=== PATIENT | male | born 1965 | race Two or more races ===

== ENCOUNTER 2022-03-05 07:51 | Emergency (ER) | payer MEDICARE, OTHER ==
[~2022-03-05] VITALS: Ht 175.3 cm; Wt 113.4 kg
[2022-03-05] MEDS ORDERED: SODIUM CHLORIDE 0.9% 1,000 ML IV ONE (08:00)
[2022-03-05 08:11] LABS: Urine Bacteria None Seen /hpf (None Seen)
[2022-03-05 09:10] LABS: Basophils # (auto) 0.1 10 ^3/uL (0-0.2); Basophils % (auto) 0.6 % (0.0-2.0); Eosinophils # (auto) 0.2 10 ^3/uL (0-0.8); Eosinophils % (auto) 2.4 % (0.0-7.0); Hematocrit 41.8 % (41.0-53.0); Hemoglobin 14.3 g/dL (13.5-17.5); Lymphocytes % (auto) 23.1 % (10.0-50.0); Mean Corpuscular Hemoglobin 31.7 pg (28.0-32.0); Mean Corpuscular Hgb Conc. 34.1 g/dL (32.0-36.0); Mean Corpuscular Volume 92.9 fL (80.0-100.0); Monocytes # (auto) 0.6 10 ^3/uL (0-1.3); Monocytes % (auto) 6.6 % (0.0-12.0); Neutrophils # (auto) 5.9 10 ^3/uL (1.6-8.6); Neutrophils % (auto) 67.3 % (37.0-80.0); Nucleated Red Blood Cells % 0.1 %; Red Cell Distribution Width 14.9 % (11.8-14.3); White Blood Cell 8.8 10^3/uL (4.4-10.8)
[2022-03-05 09:16] LABS: Albumin 3.1 g/dL (3.4-5.0); Calcium 9.7 mg/dL (8.5-10.1); Potassium 4.6 mmol/L (3.5-5.1)
[2022-03-05 09:20] LABS: BUN/Creatinine Ratio 26.7; Bilirubin, Total 0.4 mg/dL (0.2-1.0)
[2022-03-05 10:38] LABS: INR 1.01 (0.9-1.15); Partial Thromboplastin Time 31.1 sec (23.6-33.0)
[2022-03-05 11:59] LABS: Urine Blood Normal /uL (Negative); Urine Specific Gravity 1.009 (1.001-1.035)
[2022-03-05 12:01] LABS: Urine WBC 0 - 1 /hpf (0 - 3)
[2022-03-05 15:06] VITALS: BP 166/69
== END 2022-03-05 15:13 | disposition home or self-care (01) ==
LOC: ER 07:51
DX: K80.80 Other cholelithiasis without obstruction (principal); I10 Essential (primary) hypertension; E11.9 Type 2 diabetes mellitus without complications
CPT/HCPCS: 36415; 74176; 80053; 81001; 82962; 84484; 85025; 85610; 85730; 96360; 99284; J7030

== ENCOUNTER 2024-01-14 03:23 | Inpatient (IN) | payer MEDICARE ==
[~2024-01-14] VITALS: Ht 177.8 cm; Wt 111.4 kg
[2024-01-14 04:00] VITALS: PULSE 83; RESP 10; O2SAT 90
[2024-01-14] MEDS: ONDANSETRON HCL 4 MG/2 ML VIAL IV ONE (04:30)
[2024-01-14] MEDS: MORPHINE SULFATE 4 MG/ML SYR/VIAL IV ONE (05:13)
[2024-01-14 05:26] LABS: Basophils # (auto) 0 10 ^3/uL (0-0.2); Basophils % (auto) 0.4 % (0.0-2.0); Eosinophils # (auto) 0.2 10 ^3/uL (0-0.8); Eosinophils % (auto) 1.5 % (0.0-7.0); Hematocrit 30.9 % (41.0-53.0); Hemoglobin 9.8 g/dL (13.5-17.5); Lymphocytes # (auto) 0.8 10 ^3/uL (0.4-5.4); Lymphocytes % (auto) 6.4 % (10.0-50.0); Mean Corpuscular Hemoglobin 29.3 pg (28.0-32.0); Mean Corpuscular Hgb Conc. 31.5 g/dL (32.0-36.0); Monocytes # (auto) 0.5 10 ^3/uL (0-1.3); Monocytes % (auto) 3.8 % (0.0-12.0); Neutrophils # (auto) 10.4 10 ^3/uL (1.6-8.6); Neutrophils % (auto) 87.9 % (37.0-80.0); Red Blood Cells 3.33 10^6/uL (4.5-5.90); Red Cell Distribution Width 15.8 % (11.8-14.3); White Blood Cell 11.9 10^3/uL (4.4-10.8)
[2024-01-14 05:34] LABS: Alanine Aminotransferase 27 U/L (7-40); Alkaline Phosphatase 225 U/L (46-116); Anion Gap 9 (5-15); Aspartate Aminotransferase 25 U/L (13-40); Blood Urea Nitrogen 32 mg/dL (9-23); Calcium 9.2 mg/dL (8.7-10.4); Carbon Dioxide 27 mmol/L (20-30); Chloride 106 mmol/L (98-107); Glucose 148 mg/dL (74-106); Potassium 3.5 mmol/L (3.5-5.1); Sodium 142 mmol/L (136-145)
[2024-01-14 05:35] LABS: Bilirubin, Total 0.5 mg/dL (0.2-1.0); Total Protein 7.6 g/dL (5.7-8.2)
[2024-01-14 05:36] LABS: INR 1.1 (0.9-1.15); Partial Thromboplastin Time 29.9 SEC (24.5-34.5); Prothrombin Time 11.5 sec (9.3-11.8)
[2024-01-14] MEDS: FUROSEMIDE 40 MG/4 ML VIAL IV ONE (06:09)
[2024-01-14 08:00] VITALS: PULSE 80; RESP 19; O2SAT 96
[2024-01-14 10:37] LABS: Magnesium 2.2 mg/dL (1.6-2.6)
[2024-01-14] MEDS: SODIUM CHLORIDE 0.9% 1,000 ML IV SCH (11:45)
[2024-01-14] MEDS ORDERED: MORPHINE SULFATE INJ 2 MG/ml SYRG IV PRN ×2 (11:45→13:15)
[2024-01-14] MEDS ORDERED: DOCUSATE SOD 100 MG CAP PO PRN (11:45)
[2024-01-14] MEDS ORDERED: NITROGLYCERIN 0.4 MG SL TAB SL PRN (11:45)
[2024-01-14] MEDS ORDERED: ONDANSETRON HCL 4 MG/2 ML VIAL IV PRN (11:45)
[2024-01-14] MEDS ORDERED: GABA-1250 PO (11:48)
[2024-01-14] MEDS ORDERED: SODI10PA PO (11:48)
[2024-01-14] MEDS ORDERED: METO-289 PO (11:48)
[2024-01-14] MEDS ORDERED: METO5TAB5 PO (11:48)
[2024-01-14] MEDS ORDERED: FAMO20TA10 PO (11:48)
[2024-01-14] MEDS ORDERED: AMLO1TAB22 PO (11:48)
[2024-01-14] MEDS ORDERED: OXCA300T50 PO (11:48)
[2024-01-14] MEDS ORDERED: LISI40TA16 PO (11:48)
[2024-01-14] MEDS ORDERED: ALLO300T2 PO (11:48)
[2024-01-14] MEDS: InsuLIN REG 1unit/0.01ml Soln (100units/ml) SC SCH (12:00)
[2024-01-14] MEDS: ACCU-CHEK COMFORT CURVE STRIP VI SCH (12:00)
[2024-01-14] MEDS ORDERED: DEXTROSE (50%) 50ML SYRG IV PRN (12:00)
[2024-01-14] MEDS ORDERED: VANCOMYCIN PER PHARMACY 0 MG IV SCH (13:00)
[2024-01-14] MEDS: VANCOMYCIN 1GM/200ML 200 ML IV ONE (13:14)
[2024-01-14] MEDS ORDERED: HYDROmorphone HCL 2 MG/ML VL/or syr IV PRN ×2 (13:15)
[2024-01-14] MEDS ORDERED: METOCLOPRAMIDE HCL 5MG/ml INJ 2ml VIAL IV PRN (13:15)
[2024-01-14] MEDS: DOXAPRAM HCL 20 MG/ML 20ML VIAL INJ IV ONE (13:15)
[2024-01-14] MEDS: BUPIVACAINE 0.5% P/F INJ 10 ML VIAL ONE (13:15)
[2024-01-14] MEDS: LIDOCAINE 1% (LOCAL ANESTH.) PF 5ml SDV ONE (13:16)
[2024-01-14] MEDS: ACCU-CHEK COMFORT CURVE STRIP VI ONE (13:17)
[2024-01-14] MEDS: BUPIVACAINE W/ EPINEPH 0.5% INJ 50ML MDV IJ ONE (13:17)
[2024-01-14] MEDS ORDERED: BUPIVACAINE/DEXTROSE MPF 0.75% 2 ML AMP IT ONE (13:20)
[2024-01-14] MEDS ORDERED: DexAMETHasone SOD PHOS 10MG/1ML VIAL INJ ONE (13:20)
[2024-01-14] MEDS ORDERED: SODIUM CHLORIDE LOCK 10 ML ONE (13:20)
[2024-01-14] MEDS ORDERED: EPINEPHrine HCL 1 MG/1 ML AMP ONE (13:20)
[2024-01-14] MEDS ORDERED: KETAMINE 50mg/ML 1ml syringe ONE (13:20)
[2024-01-14] MEDS ORDERED: PROPOFOL 10 MG/ML 20 ML IV ONE (13:20)
[2024-01-14] MEDS ORDERED: MIDAZOLAM HCL 2MG/2ML 2ml VIAL (1mg/ml) ONE (13:20)
[2024-01-14] MEDS ORDERED: ONDANSETRON HCL 4 MG/2 ML VIAL ONE (13:20)
[2024-01-14] MEDS ORDERED: fentaNYL CITRATE 100 MCG/2 ML VL ONE (13:20)
[2024-01-14] MEDS: ceFAZolin 1GM VL ONE (13:47)
[2024-01-14] MEDS: CLINDAMYCIN 600MG IV 50 ML IV SCH (14:00)
[2024-01-14] MEDS: DexAMETHasone SOD PHOS 4 MG/1ML SDV INJ ONE (14:22)
[2024-01-14] MEDS: VANCOMYCIN HCL 1000 MG VL IR ONE (14:45)
[2024-01-14 15:01] VITALS: O2SAT 100
[2024-01-14 20:13] VITALS: PULSE 98; RESP 19; O2SAT 97
[2024-01-14 21:00] VITALS: BP 140/82; PULSE 98; RESP 19; TEMP 98.7; O2SAT 97
[2024-01-14] MEDS: ALLOPURINOL 100 MG TAB PO SCH (21:57)
[2024-01-14] MEDS: OXcarbazepine 300 MG TAB PO SCH (21:58)
[2024-01-14] MEDS: GABAPENTIN 300 MG CAP PO SCH (22:46)
[2024-01-15] VITALS (7 sets, daily range): BP systolic 112–145; BP diastolic 53–69; PULSE 72–90; RESP 17–19; TEMP 97.9–98.4; O2SAT 89–99
[2024-01-15] MEDS: VANCOMYCIN 500 MG in D5W 5% 100 ML IV SCH (00:57)
[2024-01-15 07:10] LABS: Alanine Aminotransferase 21 U/L (7-40); Albumin 3.6 g/dL (3.2-4.8); Alkaline Phosphatase 170 U/L (46-116); Anion Gap 7 (5-15); Aspartate Aminotransferase 23 U/L (13-40); BUN/Creatinine Ratio 18.8 (10.0-20.0); Bilirubin, Total 0.4 mg/dL (0.2-1.0); Calcium 8.7 mg/dL (8.5-10.1); Carbon Dioxide 28 mmol/L (20-30); Chloride 102 mmol/L (98-107); Glucose 183 mg/dL (74-106); Potassium 3.8 mmol/L (3.5-5.1); Sodium 137 mmol/L (136-145); Total Protein 6.4 g/dL (5.7-8.2)
[2024-01-15 07:14] LABS: Hemoglobin 8.4 g/dL (13.5-17.5); Mean Corpuscular Hgb Conc. 31.3 g/dL (32.0-36.0)
[2024-01-15 07:16] LABS: Blood Urea Nitrogen 43 mg/dL (9-23)
[2024-01-15 07:17] LABS: Hematocrit 26.9 % (41.0-53.0); Mean Corpuscular Hemoglobin 28.8 pg (28.0-32.0); Mean Corpuscular Volume 92.1 fL (80.0-100.0); Red Blood Cells 2.92 10^6/uL (4.5-5.90); White Blood Cell 14.4 10^3/uL (4.4-10.8)
[2024-01-15 07:20] LABS: Basophils % (manual) 0 (0.0-2.0); Blast Cells 0; Eosinophils % (manual) 0 (0-7); Metamyelocytes % 0; Myelocytes % 0; Promyelocytes % 0; Reactive Lymphocytes 0
[2024-01-15] MEDS: MORPHINE SULFATE INJ 2 MG/ml SYRG IV PRN (09:19)
[2024-01-15] MEDS: metOLazone 5 MG TAB PO SCH (10:55)
[2024-01-15] MEDS: FUROSEMIDE 40 MG/4 ML VIAL IV SCH (10:55)
[2024-01-15] MEDS: LISINOPRIL 20 MG TAB PO SCH (10:56)
[2024-01-15] MEDS: METOPROLOL SUCCINATE XL 50 MG TAB PO SCH (10:57)
[2024-01-15] MEDS: amLODIPine BESYLATE 5 MG TAB PO SCH (10:58)
[2024-01-15] MEDS ORDERED: FINE10TA PO (11:16)
[2024-01-15] MEDS ORDERED: INSU1INJ13 SC (11:16)
[2024-01-15 12:04] LABS: Platelet Estimate Adequate
[2024-01-15 12:13] LABS: Band Neutrophils % (manual) 1; Lymphocytes % (manual) 5 (10.0-50.0); Monocytes % (manual) 2 (0-12)
[2024-01-15] MEDS ORDERED: DEXTROSE (50%) 50ML SYRG IV PRN (15:00)
[2024-01-15] MEDS: InsuLIN REG 1unit/0.01ml Soln (100units/ml) SC SCH ×2 (15:55→22:06)
[2024-01-15] MEDS: ACCU-CHEK COMFORT CURVE STRIP VI SCH (19:00)
[2024-01-15] MEDS: cefTRIAXone 2GM/50ML D5W 50 ML IV ONE (21:00)
[2024-01-16] VITALS (28 sets, daily range): BP systolic 74–169; BP diastolic 39–139; PULSE 7–127; RESP 18–30; TEMP 97.8–99.9; O2SAT 93–100
[2024-01-16 05:47] LABS: Basophils # (auto) 0 10 ^3/uL (0-0.2); Basophils % (auto) 0.3 % (0.0-2.0); Eosinophils # (auto) 0.2 10 ^3/uL (0-0.8); Eosinophils % (auto) 1.2 % (0.0-7.0); Hematocrit 24.3 % (41.0-53.0); Hemoglobin 7.6 g/dL (13.5-17.5); Lymphocytes # (auto) 1.5 10 ^3/uL (0.4-5.4); Lymphocytes % (auto) 11.1 % (10.0-50.0); Mean Corpuscular Hemoglobin 28.7 pg (28.0-32.0); Mean Corpuscular Hgb Conc. 31.3 g/dL (32.0-36.0); Mean Corpuscular Volume 91.8 fL (80.0-100.0); Monocytes # (auto) 1.3 10 ^3/uL (0-1.3); Monocytes % (auto) 9.6 % (0.0-12.0); Neutrophils # (auto) 10.3 10 ^3/uL (1.6-8.6); Neutrophils % (auto) 77.8 % (37.0-80.0); Nucleated Red Blood Cells % 0.1 %; Red Blood Cells 2.65 10^6/uL (4.5-5.90); Red Cell Distribution Width 16.2 % (11.8-14.3); White Blood Cell 13.2 10^3/uL (4.4-10.8)
[2024-01-16 06:06] LABS: Anion Gap 7 (5-15); Carbon Dioxide 27 mmol/L (20-30); Chloride 101 mmol/L (98-107); Potassium 4.3 mmol/L (3.5-5.1); Sodium 135 mmol/L (136-145)
[2024-01-16 06:07] LABS: Calcium 8.6 mg/dL (8.5-10.1)
[2024-01-16 06:12] LABS: BUN/Creatinine Ratio 18.3 (10.0-20.0); Glucose 169 mg/dL (74-106)
[2024-01-16 06:15] LABS: Blood Urea Nitrogen 53 mg/dL (9-23)
[2024-01-16] MEDS: cefTRIAXone 2GM/50ML D5W 50 ML IV SCH (11:06)
[2024-01-16] MEDS: ALLOPURINOL 100 MG TAB PO SCH (11:12)
[2024-01-16] MEDS: LISINOPRIL 20 MG TAB PO SCH (11:29)
[2024-01-16] MEDS: HYDROcodone-ACET 5/325MG TAB PO PRN (11:29)
[2024-01-16] MEDS: PROPOFOL 100 ML IV ONE (14:42)
[2024-01-16] MEDS: fentaNYL Drip 2500mCg/250mlNS 250 ML IV ONE (14:42)
[2024-01-16] MEDS: fentaNYL Drip 2500mCg/250mlNS 250 ML IV SCH (14:45)
[2024-01-16] MEDS ORDERED: PROPOFOL 100 ML IV SCH (14:45)
[2024-01-16] MEDS: PROPOFOL 100 ML IV SCH (14:45)
[2024-01-16 15:40] LABS: Protein, Urine 95.5 mg/dL (0.0-11.9)
[2024-01-16 15:42] LABS: Creatinine, Urine 78.17 mg/dL (30.0-125.0); Urine Protein/Creatinine Ratio 1.22
[2024-01-16 15:45] LABS: Urine Bacteria FEW /hpf (None Seen); Urine Blood Negative /uL (Negative); Urine Clarity Clear (Clear); Urine Color Yellow (Yellow); Urine Protein, UAD 1+ (Negative); Urine Specific Gravity 1.011 (1.001-1.035); Urine Sperm PRESENT /hpf (None Seen); Urine Urobilinogen Normal (Negative); Urine WBC 2 /hpf (0 - 3)
[2024-01-16] MEDS: NOREPINEPHRINE 8 MG/250ML KIT 250 ML IV SCH (16:15)
[2024-01-17] VITALS (95 sets, daily range): BP systolic 50–149; BP diastolic 24–74; PULSE 60–78; RESP 13–22; TEMP 98.1–101.1; O2SAT 88–98
[2024-01-17 04:31] LABS: Basophils # (auto) 0.1 10 ^3/uL (0-0.2); Basophils % (auto) 0.5 % (0.0-2.0); Eosinophils # (auto) 0.6 10 ^3/uL (0-0.8); Eosinophils % (auto) 5.5 % (0.0-7.0); Hematocrit 26.1 % (41.0-53.0); Hemoglobin 8.2 g/dL (13.5-17.5); Lymphocytes # (auto) 1.5 10 ^3/uL (0.4-5.4); Lymphocytes % (auto) 12.5 % (10.0-50.0); Mean Corpuscular Hemoglobin 28.9 pg (28.0-32.0); Mean Corpuscular Hgb Conc. 31.3 g/dL (32.0-36.0); Mean Corpuscular Volume 92.3 fL (80.0-100.0); Monocytes # (auto) 1.3 10 ^3/uL (0-1.3); Monocytes % (auto) 10.8 % (0.0-12.0); Neutrophils # (auto) 8.4 10 ^3/uL (1.6-8.6); Neutrophils % (auto) 70.7 % (37.0-80.0); Nucleated Red Blood Cells % 0.2 %; Red Blood Cells 2.83 10^6/uL (4.5-5.90); Red Cell Distribution Width 16.7 % (11.8-14.3); White Blood Cell 11.8 10^3/uL (4.4-10.8)
[2024-01-17 04:41] LABS: Calcium 8.7 mg/dL (8.7-10.4); Chloride 100 mmol/L (98-107); Potassium 4.1 mmol/L (3.5-5.1); Sodium 133 mmol/L (136-145)
[2024-01-17 04:42] LABS: Anion Gap 8 (5-15); Carbon Dioxide 25 mmol/L (20-30)
[2024-01-17 04:47] LABS: BUN/Creatinine Ratio 18.3 (10.0-20.0); Blood Urea Nitrogen 52 mg/dL (9-23); Glucose 222 mg/dL (74-106)
[2024-01-17 07:56] LABS: Base Excess -1.8 mmol/L (-2.0-2.0)
[2024-01-17 09:32] LABS: Folate (Folic Acid) 22.41 ng/mL (>5.38)
[2024-01-17 09:33] LABS: Ferritin 108.1 ng/mL (22-322)
[2024-01-17] MEDS: ASPirin 81 mg TAB PO SCH (09:47)
[2024-01-17] MEDS: ERGOCALCIFEROL 50,000 UNIT(1.25MG) CAP PO SCH (09:50)
[2024-01-17] MEDS ORDERED: FUROSEMIDE 40 MG TAB PO SCH (10:00)
[2024-01-17] MEDS ORDERED: metOLazone 5 MG TAB PO SCH (10:00)
[2024-01-17] MEDS ORDERED: METOPROLOL SUCCINATE XL 50 MG TAB PO SCH (10:00)
[2024-01-17] MEDS: PANTOPRAZOLE 40 MG/10 ML VIAL INJ IV ONE (11:36)
[2024-01-17 12:17] LABS: INR 1.14 (0.9-1.15); Partial Thromboplastin Time 33.1 SEC (24.5-34.5); Prothrombin Time 11.9 sec (9.3-11.8)
[2024-01-17] MEDS: IRON SUCROSE COMPLEX 100 ML IV SCH (15:26)
[2024-01-17] MEDS: FUROSEMIDE 40 MG/4 ML VIAL IV SCH (15:26)
[2024-01-17] MEDS: ACETAMINOPHEN 325 MG TAB PO PRN (16:54)
[2024-01-17] MEDS: PHENYLEPHRINE IV 250 ML IV SCH (17:15)
[2024-01-17 17:24] LABS: Base Excess -7.4 mmol/L (-2.0-2.0)
[2024-01-17] MEDS: MIDAZOLAM DRIP 50 mg/50mL 50 ML IV ONE (17:27)
[2024-01-17] MEDS: MIDAZOLAM DRIP 50 mg/50mL 50 ML IV SCH (17:33)
[2024-01-17] MEDS ORDERED: DEXTROSE (50%) 50ML SYRG IV PRN (17:45)
[2024-01-17] MEDS: InsuLIN REG 1unit/0.01ml Soln (100units/ml) SC SCH (18:00)
[2024-01-17] MEDS: ACCU-CHEK COMFORT CURVE STRIP VI SCH (18:00)
[2024-01-17] MEDS: IPRATROPIUM BROM 0.5 MG/2.5ML INH SOL NEB SCH (19:03)
[2024-01-17] MEDS: ATORVASTATIN 20 MG TAB PO SCH (21:58)
[2024-01-18] VITALS (129 sets, daily range): BP systolic 53–180; BP diastolic 29–79; PULSE 60–114; RESP 12–26; TEMP 97.3–99.7; O2SAT 87–100
[2024-01-18 04:23] LABS: Basophils # (auto) 0.1 10 ^3/uL (0-0.2); Hemoglobin 8.2 g/dL (13.5-17.5); Neutrophils # (auto) 10.1 10 ^3/uL (1.6-8.6); White Blood Cell 13.5 10^3/uL (4.4-10.8)
[2024-01-18 04:26] LABS: Basophils % (auto) 0.8 % (0.0-2.0); Eosinophils # (auto) 0.7 10 ^3/uL (0-0.8); Eosinophils % (auto) 5.3 % (0.0-7.0); Hematocrit 26.1 % (41.0-53.0); Lymphocytes # (auto) 1.2 10 ^3/uL (0.4-5.4); Lymphocytes % (auto) 8.7 % (10.0-50.0); Mean Corpuscular Hemoglobin 28.8 pg (28.0-32.0); Mean Corpuscular Hgb Conc. 31.6 g/dL (32.0-36.0); Mean Corpuscular Volume 91.3 fL (80.0-100.0); Monocytes # (auto) 1.4 10 ^3/uL (0-1.3); Monocytes % (auto) 10.1 % (0.0-12.0); Neutrophils % (auto) 75.1 % (37.0-80.0); Nucleated Red Blood Cells % 0.2 %; Red Blood Cells 2.86 10^6/uL (4.5-5.90); Red Cell Distribution Width 16.7 % (11.8-14.3)
[2024-01-18 04:40] LABS: Alanine Aminotransferase 39 U/L (7-40); Albumin 2.9 g/dL (3.2-4.8); Alkaline Phosphatase 162 U/L (46-116); Anion Gap 9 (5-15); Aspartate Aminotransferase 29 U/L (13-40); BUN/Creatinine Ratio 19.2 (10.0-20.0); Bilirubin, Total 0.5 mg/dL (0.2-1.0); Calcium 8.8 mg/dL (8.7-10.4); Carbon Dioxide 24 mmol/L (20-30); Chloride 101 mmol/L (98-107); Glucose 185 mg/dL (74-106); Magnesium 2.3 mg/dL (1.6-2.6); Potassium 4.3 mmol/L (3.5-5.1); Sodium 134 mmol/L (136-145); Total Protein 5.8 g/dL (5.7-8.2)
[2024-01-18 04:51] LABS: Blood Urea Nitrogen 62 mg/dL (9-23)
[2024-01-18] MEDS ORDERED: CEFEPIME 1GM/ 50ML 50 ML IV ONE (06:30)
[2024-01-18] MEDS: SODIUM CHLORIDE 0.9% 1,000 ML IV SCH (08:28)
[2024-01-18 09:35] LABS: Base Excess -3.3 mmol/L (-2.0-2.0)
[2024-01-18] MEDS: CEFEPIME 1GM/ 50ML 50 ML IV SCH (10:12)
[2024-01-18] MEDS: PANTOPRAZOLE 40 MG/10 ML VIAL INJ IV SCH (10:12)
[2024-01-18] MEDS: OXcarbazepine 300 MG TAB PO SCH (10:13)
[2024-01-18 11:12] LABS: Urine Bacteria FEW /hpf (None Seen); Urine Blood 2+ /uL (Negative); Urine Budding Yeast MANY /hpf (None Seen); Urine Clarity CLOUDY (Clear); Urine Color Yellow (Yellow); Urine Hyaline Cast FEW /lpf (0 - 2); Urine Mucus FEW (None Seen); Urine Protein, UAD 1+ (Negative); Urine Specific Gravity 1.014 (1.001-1.035); Urine WBC 188 /hpf (0 - 3); Urine WBC Clumps PRESENT /hpf (None Seen)
[2024-01-18] MEDS: BUMETANIDE INJECTION 25 MG in GIVE UN-DILUTED 0 ML IV SCH (12:31)
[2024-01-18] MEDS ORDERED: VANCOMYCIN PER PHARMACY 0 MG IV SCH (13:15)
[2024-01-18] MEDS: VANCOMYCIN 1GM/200ML 200 ML IV ONE (15:16)
[2024-01-18] MEDS: EPINEPHrine HCL 250 ML IV SCH (17:15)
[2024-01-18 18:13] LABS: Alanine Aminotransferase 32 U/L (7-40); Albumin 2.8 g/dL (3.2-4.8); Alkaline Phosphatase 149 U/L (46-116); Anion Gap 9 (5-15); Aspartate Aminotransferase 24 U/L (13-40); BUN/Creatinine Ratio 18.3 (10.0-20.0); Bilirubin, Total 0.5 mg/dL (0.2-1.0); Blood Urea Nitrogen 64 mg/dL (9-23); Calcium 8.8 mg/dL (8.7-10.4); Carbon Dioxide 23 mmol/L (20-30); Chloride 102 mmol/L (98-107); Glucose 190 mg/dL (74-106); Potassium 4.6 mmol/L (3.5-5.1); Sodium 134 mmol/L (136-145); Total Protein 5.6 g/dL (5.7-8.2)
[2024-01-18] MEDS ORDERED: ALBUMIN 25% 100 ML IV PRN (19:00)
[2024-01-18] MEDS: PHENYLEPHRINE INJ 80 MG in SODIUM CHL 0.9% 242 ML IV SCH (20:00)
[2024-01-18] MEDS: VASOPRESSIN 20 UNITS in SODIUM CHL 0.9% 99 ML IV SCH (20:32)
[2024-01-18] MEDS: DOPamine 1600MCG/ML D5W 250 ML IV SCH (21:00)
[2024-01-18 21:39] LABS: Base Excess -10.7 mmol/L (-2.0-2.0)
[2024-01-18] MEDS: ALBUTEROL SULF 2.5 MG/0.5ML(0.5%) NEB SOLN NEB SCH (22:00)
[2024-01-18] MEDS: SODIUM BICARB 8.4% 50Meq/50ml SYR Vial IV ONE ×2 (22:29→22:30)
[2024-01-18] MEDS: NOREPINEPHRINE BITARTRATE 32 MG in SODIUM CHL 0.9% 218 ML IV SCH (22:45)
[2024-01-19] VITALS (110 sets, daily range): BP systolic 92–170; BP diastolic 44–81; PULSE 91–117; RESP 20–24; TEMP 98.1–99.7; O2SAT 91–100
[2024-01-19 01:34] LABS: Base Excess -11.5 mmol/L (-2.0-2.0)
[2024-01-19] MEDS: SODIUM BICARB 8.4% 50Meq/50ml SYR Vial IV ONE (03:16)
[2024-01-19 04:24] LABS: White Blood Cell 24.7 10^3/uL (4.4-10.8)
[2024-01-19 04:25] LABS: Basophils # (auto) 0.1 10 ^3/uL (0-0.2); Basophils % (auto) 0.4 % (0.0-2.0); Eosinophils # (auto) 0.1 10 ^3/uL (0-0.8); Eosinophils % (auto) 0.3 % (0.0-7.0); Hematocrit 32.9 % (41.0-53.0); Hemoglobin 9.9 g/dL (13.5-17.5); Lymphocytes # (auto) 0.7 10 ^3/uL (0.4-5.4); Mean Corpuscular Hemoglobin 28.2 pg (28.0-32.0); Mean Corpuscular Volume 93.9 fL (80.0-100.0); Monocytes # (auto) 2.1 10 ^3/uL (0-1.3); Monocytes % (auto) 8.6 % (0.0-12.0); Neutrophils # (auto) 21.7 10 ^3/uL (1.6-8.6); Neutrophils % (auto) 87.7 % (37.0-80.0); Nucleated Red Blood Cells % 0.4 %; Red Blood Cells 3.51 10^6/uL (4.5-5.90)
[2024-01-19 04:43] LABS: Alanine Aminotransferase 76 U/L (7-40); Albumin 3.3 g/dL (3.2-4.8); Alkaline Phosphatase 172 U/L (46-116); Anion Gap 16 (5-15); Aspartate Aminotransferase 91 U/L (13-40); BUN/Creatinine Ratio 15.8 (10.0-20.0); Bilirubin, Total 0.7 mg/dL (0.2-1.0); Blood Urea Nitrogen 63 mg/dL (9-23); Calcium 9.2 mg/dL (8.7-10.4); Carbon Dioxide 19 mmol/L (20-30); Chloride 100 mmol/L (98-107); Magnesium 2.5 mg/dL (1.6-2.6); Sodium 135 mmol/L (136-145); Total Protein 6.6 g/dL (5.7-8.2)
[2024-01-19 04:57] LABS: Lactic Acid w/Reflex 5.5 mmol/L (0.4-2.0)
[2024-01-19 04:58] LABS: Glucose 295 mg/dL (74-106)
[2024-01-19] MEDS: SODIUM CHL 0.9% 1000 ML BAG XX ONE (07:00)
[2024-01-19 07:21] LABS: Base Excess -6.2 mmol/L (-2.0-2.0)
[2024-01-19] MEDS ORDERED: ENOXAPARIN SOD 40 MG/0.4 ML SYRINGE SC SCH (10:00)
[2024-01-19] MEDS: ENOXAPARIN SOD 30 MG/0.3 ML SYRINGE SC SCH (12:28)
[2024-01-19 18:00] LABS: Chloride 101 mmol/L (98-107); Potassium 4.4 mmol/L (3.5-5.1); Sodium 136 mmol/L (136-145)
[2024-01-19 18:01] LABS: Anion Gap 10 (5-15); Calcium 8.9 mg/dL (8.5-10.1); Carbon Dioxide 25 mmol/L (20-30)
[2024-01-19 18:06] LABS: BUN/Creatinine Ratio 18.7 (10.0-20.0); Glucose 265 mg/dL (74-106)
[2024-01-19 18:09] LABS: Blood Urea Nitrogen 73 mg/dL (9-23)
[2024-01-19] MEDS: VANCOMYCIN 500 MG in D5W 5% 100 ML IV ONE (20:10)
[2024-01-19] MEDS: EPOETIN ALFA-EPBX 10,000 UNIT/1ML VIAL IV ONE (21:27)
[2024-01-19 22:39] LABS: Chloride 102 mmol/L (98-107); Potassium 4.2 mmol/L (3.5-5.1); Sodium 136 mmol/L (136-145)
[2024-01-19] MEDS: LINEZOLID 600MG/300ML 300 ML IV SCH (22:39)
[2024-01-19 22:40] LABS: Anion Gap 10 (5-15); Calcium 9.2 mg/dL (8.7-10.4); Carbon Dioxide 24 mmol/L (20-30)
[2024-01-19 22:45] LABS: BUN/Creatinine Ratio 18.8 (10.0-20.0); Blood Urea Nitrogen 68 mg/dL (9-23); Glucose 288 mg/dL (74-106)
[2024-01-19 22:46] LABS: Magnesium 2.2 mg/dL (1.6-2.6)
[2024-01-20] VITALS (106 sets, daily range): BP systolic 73–187; BP diastolic 36–70; PULSE 74–113; RESP 22–28; TEMP 97.9–98.6; O2SAT 94–100
[2024-01-20 03:56] LABS: Eosinophils # (auto) 0.3 10 ^3/uL (0-0.8); Neutrophils # (auto) 10.5 10 ^3/uL (1.6-8.6)
[2024-01-20 03:57] LABS: Basophils # (auto) 0.1 10 ^3/uL (0-0.2); Basophils % (auto) 0.4 % (0.0-2.0); Eosinophils % (auto) 2.3 % (0.0-7.0); Hematocrit 25.2 % (41.0-53.0); Lymphocytes # (auto) 0.9 10 ^3/uL (0.4-5.4); Lymphocytes % (auto) 7.3 % (10.0-50.0); Mean Corpuscular Hemoglobin 28.7 pg (28.0-32.0); Mean Corpuscular Hgb Conc. 31.7 g/dL (32.0-36.0); Mean Corpuscular Volume 90.3 fL (80.0-100.0); Monocytes # (auto) 1.2 10 ^3/uL (0-1.3); Monocytes % (auto) 9.2 % (0.0-12.0); Neutrophils % (auto) 80.8 % (37.0-80.0); Nucleated Red Blood Cells % 0.5 %; Red Blood Cells 2.79 10^6/uL (4.5-5.90); Red Cell Distribution Width 16.2 % (11.8-14.3)
[2024-01-20 04:02] LABS: Chloride 104 mmol/L (98-107); Potassium 3.7 mmol/L (3.5-5.1); Sodium 136 mmol/L (136-145)
[2024-01-20 04:03] LABS: Anion Gap 9 (5-15); Calcium 8.4 mg/dL (8.7-10.4); Carbon Dioxide 23 mmol/L (20-30)
[2024-01-20 04:08] LABS: BUN/Creatinine Ratio 19.3 (10.0-20.0); Blood Urea Nitrogen 65 mg/dL (9-23); Glucose 312 mg/dL (74-106)
[2024-01-20 07:09] LABS: Base Excess -2.4 mmol/L (-2.0-2.0)
[2024-01-20] MEDS: POTASSIUM CHL 20MEQ/100ML 100 ML IV SCH (12:13)
[2024-01-21] VITALS (106 sets, daily range): BP systolic 66–173; BP diastolic 37–83; PULSE 95–114; RESP 16–26; TEMP 96.6–99.7; O2SAT 85–100
[2024-01-21 04:02] LABS: Basophils # (auto) 0 10 ^3/uL (0-0.2); Eosinophils # (auto) 0.4 10 ^3/uL (0-0.8)
[2024-01-21 04:06] LABS: Basophils % (auto) 0.1 % (0.0-2.0); Hemoglobin 7.9 g/dL (13.5-17.5); Lymphocytes # (auto) 0.7 10 ^3/uL (0.4-5.4); Lymphocytes % (auto) 5.7 % (10.0-50.0); Mean Corpuscular Hemoglobin 28.6 pg (28.0-32.0); Mean Corpuscular Hgb Conc. 31.5 g/dL (32.0-36.0); Monocytes # (auto) 1.1 10 ^3/uL (0-1.3); Neutrophils % (auto) 82.2 % (37.0-80.0); Nucleated Red Blood Cells % 0.2 %; Red Blood Cells 2.75 10^6/uL (4.5-5.90); Red Cell Distribution Width 16.5 % (11.8-14.3); White Blood Cell 12.2 10^3/uL (4.4-10.8)
[2024-01-21 04:15] LABS: Alanine Aminotransferase 66 U/L (7-40); Alkaline Phosphatase 120 U/L (46-116); Anion Gap 8 (5-15); BUN/Creatinine Ratio 20.1 (10.0-20.0); Blood Urea Nitrogen 60 mg/dL (9-23); Calcium 8.1 mg/dL (8.7-10.4); Carbon Dioxide 26 mmol/L (20-30); Chloride 105 mmol/L (98-107); Glucose 284 mg/dL (74-106); Magnesium 1.7 mg/dL (1.6-2.6); Sodium 139 mmol/L (136-145)
[2024-01-21 04:16] LABS: Albumin 2.4 g/dL (3.2-4.8); Aspartate Aminotransferase 51 U/L (13-40); Bilirubin, Total 0.9 mg/dL (0.2-1.0); Phosphorus 3.9 mg/dL (2.4-5.1); Total Protein 5.2 g/dL (5.7-8.2)
[2024-01-21 07:11] LABS: Base Excess 1.8 mmol/L (-2.0-2.0)
[2024-01-21] MEDS ORDERED: DEXTROSE (50%) 50ML SYRG IV PRN (11:45)
[2024-01-21] MEDS: InsuLIN REG 1unit/0.01ml Soln (100units/ml) SC SCH (12:01)
[2024-01-21] MEDS: ACCU-CHEK COMFORT CURVE STRIP VI SCH (12:10)
[2024-01-21] MEDS ORDERED: BUMETANIDE INJECTION 25 MG in GIVE UN-DILUTED 0 ML IV SCH (13:45)
[2024-01-21] MEDS: BUMETANIDE INJECTION 25 MG in GIVE UN-DILUTED 0 ML IV SCH (14:30)
[2024-01-21] MEDS: metOLazone 5 MG TAB GT SCH (15:29)
[2024-01-21] MEDS: CATHFLO ACTIVASE (ALTEPLASE) 2 MG VIAL IV ONE (17:12)
[2024-01-21] MEDS: CEFEPIME 2GM/50ML NS 50 ML IV SCH (18:09)
[2024-01-22] VITALS (106 sets, daily range): BP systolic 89–169; BP diastolic 45–78; PULSE 92–113; RESP 20–25; TEMP 98.2–99.3; O2SAT 91–99
[2024-01-22 02:39] LABS: Basophils # (auto) 0 10 ^3/uL (0-0.2); Basophils % (auto) 0.2 % (0.0-2.0); Eosinophils # (auto) 0.3 10 ^3/uL (0-0.8); Eosinophils % (auto) 2.6 % (0.0-7.0); Hemoglobin 8.6 g/dL (13.5-17.5); Lymphocytes # (auto) 0.8 10 ^3/uL (0.4-5.4); Lymphocytes % (auto) 6.5 % (10.0-50.0); Mean Corpuscular Hemoglobin 28.9 pg (28.0-32.0); Mean Corpuscular Hgb Conc. 31.7 g/dL (32.0-36.0); Mean Corpuscular Volume 91.3 fL (80.0-100.0); Monocytes # (auto) 1.1 10 ^3/uL (0-1.3); Monocytes % (auto) 8.6 % (0.0-12.0); Neutrophils # (auto) 10.3 10 ^3/uL (1.6-8.6); Neutrophils % (auto) 82.1 % (37.0-80.0); Nucleated Red Blood Cells % 0.2 %; Red Blood Cells 2.96 10^6/uL (4.5-5.90); Red Cell Distribution Width 16.6 % (11.8-14.3); White Blood Cell 12.5 10^3/uL (4.4-10.8)
[2024-01-22 02:55] LABS: Alanine Aminotransferase 61 U/L (7-40); Alkaline Phosphatase 125 U/L (46-116); Anion Gap 6 (5-15); Aspartate Aminotransferase 50 U/L (13-40); BUN/Creatinine Ratio 19.6 (10.0-20.0); Blood Urea Nitrogen 61 mg/dL (9-23); Calcium 8.8 mg/dL (8.7-10.4); Carbon Dioxide 28 mmol/L (20-30); Chloride 101 mmol/L (98-107); Glucose 289 mg/dL (74-106); Magnesium 1.7 mg/dL (1.6-2.6); Potassium 4.8 mmol/L (3.5-5.1); Sodium 135 mmol/L (136-145)
[2024-01-22 02:56] LABS: Albumin 2.8 g/dL (3.2-4.8); INR 1.24 (0.9-1.15); Partial Thromboplastin Time 37.9 SEC (24.5-34.5); Prothrombin Time 12.8 sec (9.3-11.8)
[2024-01-22 02:57] LABS: Bilirubin, Total 1.1 mg/dL (0.2-1.0)
[2024-01-22 07:47] LABS: Base Excess 4.4 mmol/L (-2.0-2.0)
[2024-01-22] MEDS: ALLOPURINOL 100 MG TAB PO SCH (09:31)
[2024-01-22] MEDS: INSULIN LANTUS (GLARGINE) 1 /0.01ml (100units/ml) SC SCH (10:18)
[2024-01-22] MEDS: LEVALBUTEROL HCL 1.25 MG/3 ML NEB NEB SCH (12:29)
[2024-01-22] MEDS: IPRATROPIUM BROM 0.5 MG/2.5ML INH SOL NEB SCH (12:29)
[2024-01-22] MEDS: NOREPINEPHRINE BITARTRATE 32 MG in SODIUM CHL 0.9% 218 ML IV SCH (14:45)
[2024-01-22] MEDS: PHENYLEPHRINE INJ 80 MG in SODIUM CHL 0.9% 242 ML IV SCH (14:45)
[2024-01-22] MEDS: Glucerna 1.2 Cal 1Liter BOTTLE GT SCH (19:00)
[2024-01-23] VITALS (106 sets, daily range): BP systolic 45–195; BP diastolic 27–96; PULSE 90–120; RESP 17–25; TEMP 97.9–99.7; O2SAT 91–100
[2024-01-23 04:25] LABS: Basophils # (auto) 0 10 ^3/uL (0-0.2); Basophils % (auto) 0.2 % (0.0-2.0); Eosinophils # (auto) 0.3 10 ^3/uL (0-0.8); Eosinophils % (auto) 3.6 % (0.0-7.0); Hematocrit 26.5 % (41.0-53.0); Hemoglobin 8.7 g/dL (13.5-17.5); Lymphocytes # (auto) 0.9 10 ^3/uL (0.4-5.4); Mean Corpuscular Hemoglobin 29.4 pg (28.0-32.0); Mean Corpuscular Hgb Conc. 32.6 g/dL (32.0-36.0); Mean Corpuscular Volume 90.1 fL (80.0-100.0); Monocytes # (auto) 0.8 10 ^3/uL (0-1.3); Monocytes % (auto) 8.2 % (0.0-12.0); Neutrophils # (auto) 7.7 10 ^3/uL (1.6-8.6); Nucleated Red Blood Cells % 0.4 %; Red Blood Cells 2.94 10^6/uL (4.5-5.90); Red Cell Distribution Width 16.6 % (11.8-14.3); White Blood Cell 9.7 10^3/uL (4.4-10.8)
[2024-01-23 04:35] LABS: Alanine Aminotransferase 52 U/L (7-40); Albumin 2.9 g/dL (3.2-4.8); Alkaline Phosphatase 123 U/L (46-116); Anion Gap 4 (5-15); Aspartate Aminotransferase 57 U/L (13-40); BUN/Creatinine Ratio 20.5 (10.0-20.0); Blood Urea Nitrogen 62 mg/dL (9-23); Calcium 9.4 mg/dL (8.7-10.4); Carbon Dioxide 33 mmol/L (20-30); Chloride 99 mmol/L (98-107); Glucose 245 mg/dL (74-106); Magnesium 1.6 mg/dL (1.6-2.6); Phosphorus 3.5 mg/dL (2.4-5.1); Sodium 136 mmol/L (136-145)
[2024-01-23 04:36] LABS: Bilirubin, Total 0.9 mg/dL (0.2-1.0); Total Protein 6.2 g/dL (5.7-8.2)
[2024-01-23 08:06] LABS: Base Excess 7.4 mmol/L (-2.0-2.0)
[2024-01-24] VITALS (108 sets, daily range): BP systolic 71–172; BP diastolic 29–73; PULSE 80–104; RESP 18–24; TEMP 98.8–99.5; O2SAT 89–98
[2024-01-24 04:03] LABS: Basophils # (auto) 0 10 ^3/uL (0-0.2); Basophils % (auto) 0.1 % (0.0-2.0); Eosinophils # (auto) 0.2 10 ^3/uL (0-0.8); Eosinophils % (auto) 2.2 % (0.0-7.0); Hematocrit 28.6 % (41.0-53.0); Hemoglobin 9.2 g/dL (13.5-17.5); Lymphocytes % (auto) 9.3 % (10.0-50.0); Mean Corpuscular Hemoglobin 29.1 pg (28.0-32.0); Mean Corpuscular Hgb Conc. 32.2 g/dL (32.0-36.0); Mean Corpuscular Volume 90.4 fL (80.0-100.0); Monocytes # (auto) 0.8 10 ^3/uL (0-1.3); Monocytes % (auto) 7.4 % (0.0-12.0); Neutrophils # (auto) 9.1 10 ^3/uL (1.6-8.6); Nucleated Red Blood Cells % 0.3 %; Red Blood Cells 3.16 10^6/uL (4.5-5.90); Red Cell Distribution Width 16.8 % (11.8-14.3); White Blood Cell 11.2 10^3/uL (4.4-10.8)
[2024-01-24 04:25] LABS: Alanine Aminotransferase 49 U/L (7-40); Alkaline Phosphatase 125 U/L (46-116); Anion Gap 5 (5-15); Aspartate Aminotransferase 69 U/L (13-40); BUN/Creatinine Ratio 19.7 (10.0-20.0); Blood Urea Nitrogen 61 mg/dL (9-23); Calcium 9.6 mg/dL (8.7-10.4); Carbon Dioxide 35 mmol/L (20-30); Chloride 94 mmol/L (98-107); Glucose 266 mg/dL (74-106); Magnesium 1.5 mg/dL (1.6-2.6); Potassium 3.9 mmol/L (3.5-5.1); Sodium 134 mmol/L (136-145)
[2024-01-24 04:26] LABS: Albumin 3.1 g/dL (3.2-4.8); Bilirubin, Total 0.8 mg/dL (0.2-1.0); Total Protein 6.8 g/dL (5.7-8.2)
[2024-01-24] MEDS: MAGNESIUM SULFATE 1GM/100ML 100 ML IV SCH (05:21)
[2024-01-24 08:53] LABS: Base Excess 10.7 mmol/L (-2.0-2.0)
[2024-01-24] MEDS: LACTULOSE 20Gm/30ML SOLN PO SCH ×2 (12:28→21:34)
[2024-01-24] MEDS: OPTISON 3ml Vial for INJ IV ONE (14:42)
[2024-01-24] MEDS: NOREPINEPHRINE 8 MG/250ML KIT 250 ML IV SCH (16:13)
[2024-01-24] MEDS ORDERED: MAGNESIUM SULFATE 1GM/100ML 100 ML IV ONE (16:30)
[2024-01-24] MEDS: ENOXAPARIN SOD 40 MG/0.4 ML SYRINGE SC ONE (18:45)
[2024-01-24] MEDS: BUMETANIDE 2.5mg/10ml (0.25 mg/ml) INJ IV SCH (18:46)
[2024-01-24 18:48] LABS: Base Excess 9.8 mmol/L (-2.0-2.0)
[2024-01-25] VITALS (112 sets, daily range): BP systolic 76–148; BP diastolic 40–64; PULSE 89–106; RESP 19–20; TEMP 98.4–99.1; O2SAT 93–98
[2024-01-25 03:53] LABS: Basophils # (auto) 0 10 ^3/uL (0-0.2); Basophils % (auto) 0.3 % (0.0-2.0); Eosinophils # (auto) 0.5 10 ^3/uL (0-0.8); Eosinophils % (auto) 5.1 % (0.0-7.0); Hematocrit 27.3 % (41.0-53.0); Hemoglobin 8.7 g/dL (13.5-17.5); Lymphocytes # (auto) 1.3 10 ^3/uL (0.4-5.4); Lymphocytes % (auto) 12.8 % (10.0-50.0); Mean Corpuscular Hemoglobin 29.3 pg (28.0-32.0); Mean Corpuscular Volume 91.7 fL (80.0-100.0); Monocytes # (auto) 0.9 10 ^3/uL (0-1.3); Monocytes % (auto) 8.9 % (0.0-12.0); Neutrophils # (auto) 7.2 10 ^3/uL (1.6-8.6); Neutrophils % (auto) 72.9 % (37.0-80.0); Nucleated Red Blood Cells % 0.2 %; Red Blood Cells 2.97 10^6/uL (4.5-5.90); Red Cell Distribution Width 17.6 % (11.8-14.3); White Blood Cell 9.9 10^3/uL (4.4-10.8)
[2024-01-25 04:11] LABS: Alanine Aminotransferase 41 U/L (7-40); Albumin 3.1 g/dL (3.2-4.8); Alkaline Phosphatase 121 U/L (46-116); Anion Gap 5 (5-15); Aspartate Aminotransferase 55 U/L (13-40); BUN/Creatinine Ratio 21.3 (10.0-20.0); Bilirubin, Total 0.8 mg/dL (0.2-1.0); Calcium 9.5 mg/dL (8.7-10.4); Carbon Dioxide 35 mmol/L (20-30); Chloride 93 mmol/L (98-107); Glucose 293 mg/dL (74-106); Potassium 3.2 mmol/L (3.5-5.1); Sodium 133 mmol/L (136-145); Total Protein 6.6 g/dL (5.7-8.2)
[2024-01-25 04:13] LABS: Blood Urea Nitrogen 72 mg/dL (9-23)
[2024-01-25] MEDS: POTASSIUM CHL 20MEQ/100ML 100 ML IV ONE (06:17)
[2024-01-25 07:54] LABS: Base Excess 11.7 mmol/L (-2.0-2.0)
[2024-01-25] MEDS: POTASSIUM CHL 20MEQ/100ML 100 ML IV SCH (10:28)
[2024-01-25] MEDS: ENOXAPARIN SOD 40 MG/0.4 ML SYRINGE SC SCH (11:50)
[2024-01-25] MEDS: acetaZOLAMIDE SODIUM 500 MG VL IV ONE (13:26)
[2024-01-25] MEDS ORDERED: DEXTROSE (50%) 50ML SYRG IV PRN (14:00)
[2024-01-25] MEDS: ACCU-CHEK COMFORT CURVE STRIP VI SCH (18:00)
[2024-01-25] MEDS: InsuLIN REG 1unit/0.01ml Soln (100units/ml) SC SCH (18:03)
[2024-01-26] VITALS (107 sets, daily range): BP systolic 82–153; BP diastolic 43–127; PULSE 89–102; RESP 12–33; TEMP 98.4–99.5; O2SAT 91–100
[2024-01-26 03:47] LABS: Basophils # (auto) 0.1 10 ^3/uL (0-0.2); Basophils % (auto) 0.7 % (0.0-2.0); Eosinophils # (auto) 0.7 10 ^3/uL (0-0.8); Eosinophils % (auto) 5.7 % (0.0-7.0); Hematocrit 28.7 % (41.0-53.0); Hemoglobin 8.8 g/dL (13.5-17.5); Lymphocytes # (auto) 1.4 10 ^3/uL (0.4-5.4); Mean Corpuscular Hgb Conc. 30.5 g/dL (32.0-36.0); Monocytes # (auto) 0.9 10 ^3/uL (0-1.3); Monocytes % (auto) 7.2 % (0.0-12.0); Neutrophils # (auto) 9.4 10 ^3/uL (1.6-8.6); Neutrophils % (auto) 75.4 % (37.0-80.0); Red Blood Cells 3.12 10^6/uL (4.5-5.90); Red Cell Distribution Width 17.2 % (11.8-14.3); White Blood Cell 12.4 10^3/uL (4.4-10.8)
[2024-01-26 04:11] LABS: Alanine Aminotransferase 37 U/L (7-40); Albumin 3.2 g/dL (3.2-4.8); Alkaline Phosphatase 128 U/L (46-116); Anion Gap 5 (5-15); Aspartate Aminotransferase 52 U/L (13-40); BUN/Creatinine Ratio 20.5 (10.0-20.0); Bilirubin, Total 0.6 mg/dL (0.2-1.0); Blood Urea Nitrogen 76 mg/dL (9-23); Calcium 9.4 mg/dL (8.7-10.4); Carbon Dioxide 33 mmol/L (20-30); Chloride 94 mmol/L (98-107); Glucose 284 mg/dL (74-106); Magnesium 2.1 mg/dL (1.6-2.6); Potassium 3.8 mmol/L (3.5-5.1); Sodium 132 mmol/L (136-145); Total Protein 6.9 g/dL (5.7-8.2)
[2024-01-26 07:42] LABS: Base Excess 7.1 mmol/L (-2.0-2.0)
[2024-01-26] MEDS: INSULIN LANTUS (GLARGINE) 1 /0.01ml (100units/ml) SC SCH (10:56)
[2024-01-26] MEDS ORDERED: LIDOCAINE 2%HCL (LOCAL ANESTH.) INJ 20ML MDV ONE (14:10)
[2024-01-26] MEDS ORDERED: LIDOCAINE 2% JELLY 11ml (GLYDO) ONE (14:10)
[2024-01-26] MEDS ORDERED: EPINEPHrine HCL 1 MG/1 ML AMP ONE (14:11)
[2024-01-26] MEDS ORDERED: GLYCOPYRROLATE 0.2 MG/ML 1ML VIAL ONE (14:11)
[2024-01-26] MEDS: ENOXAPARIN SOD 30 MG/0.3 ML SYRINGE SC SCH (21:33)
[2024-01-27] VITALS (108 sets, daily range): BP systolic 85–171; BP diastolic 45–78; PULSE 80–104; RESP 15–22; TEMP 98.2–99.5; O2SAT 89–100
[2024-01-27] MEDS: CEFEPIME 2GM/50ML NS 50 ML IV SCH (00:19)
[2024-01-27 04:07] LABS: Anion Gap 7 (5-15); Carbon Dioxide 33 mmol/L (20-30); Chloride 92 mmol/L (98-107); Potassium 3.5 mmol/L (3.5-5.1); Sodium 132 mmol/L (136-145)
[2024-01-27 04:08] LABS: Calcium 9.8 mg/dL (8.7-10.4)
[2024-01-27 04:13] LABS: BUN/Creatinine Ratio 23.2 (10.0-20.0); Basophils # (auto) 0 10 ^3/uL (0-0.2); Basophils % (auto) 0.3 % (0.0-2.0); Eosinophils # (auto) 0.7 10 ^3/uL (0-0.8); Eosinophils % (auto) 4.6 % (0.0-7.0); Glucose 377 mg/dL (74-106); Hematocrit 29.1 % (41.0-53.0); Hemoglobin 9.1 g/dL (13.5-17.5); Lymphocytes # (auto) 1.3 10 ^3/uL (0.4-5.4); Lymphocytes % (auto) 8.3 % (10.0-50.0); Mean Corpuscular Hemoglobin 28.7 pg (28.0-32.0); Mean Corpuscular Hgb Conc. 31.1 g/dL (32.0-36.0); Mean Corpuscular Volume 92.2 fL (80.0-100.0); Monocytes # (auto) 1.3 10 ^3/uL (0-1.3); Neutrophils # (auto) 12.5 10 ^3/uL (1.6-8.6); Neutrophils % (auto) 78.8 % (37.0-80.0); Nucleated Red Blood Cells % 0.1 %; Red Blood Cells 3.15 10^6/uL (4.5-5.90); Red Cell Distribution Width 17.9 % (11.8-14.3); White Blood Cell 15.8 10^3/uL (4.4-10.8)
[2024-01-27 04:14] LABS: Magnesium 2.2 mg/dL (1.6-2.6)
[2024-01-27 04:24] LABS: Blood Urea Nitrogen 82 mg/dL (9-23)
[2024-01-27] MEDS: MIDAZOLAM DRIP 50 mg/50mL 50 ML IV SCH (06:31)
[2024-01-27 08:45] LABS: Base Excess 4.6 mmol/L (-2.0-2.0)
[2024-01-27] MEDS: Glucerna 1.2 Cal 1Liter BOTTLE GT SCH (10:28)
[2024-01-27 14:34] LABS: Hematocrit 27.8 % (41.0-53.0); Hemoglobin 8.8 g/dL (13.5-17.5)
[2024-01-27 14:54] LABS: Protein, Urine 127.7 mg/dL (0.0-11.9)
[2024-01-27 14:56] LABS: Urine Bacteria FEW /hpf (None Seen); Urine Blood 2+ /uL (Negative); Urine Clarity Clear (Clear); Urine Color Colorless (Yellow); Urine Protein, UAD 2+ (Negative); Urine Urobilinogen Normal (Negative); Urine WBC 3 /hpf (0 - 3)
[2024-01-27 14:57] LABS: Creatinine, Urine 23.24 mg/dL (30.0-125.0); Urine Protein/Creatinine Ratio 5.49
[2024-01-27] MEDS: INSULIN LANTUS (GLARGINE) 1 /0.01ml (100units/ml) SC SCH (23:38)
[2024-01-28] VITALS (108 sets, daily range): BP systolic 63–156; BP diastolic 31–75; PULSE 83–101; RESP 13–22; TEMP 97.7–99; O2SAT 90–100
[2024-01-28 04:07] LABS: Basophils # (auto) 0 10 ^3/uL (0-0.2); Basophils % (auto) 0.3 % (0.0-2.0); Eosinophils # (auto) 0.3 10 ^3/uL (0-0.8); Eosinophils % (auto) 2.1 % (0.0-7.0); Hematocrit 30.1 % (41.0-53.0); Hemoglobin 9.3 g/dL (13.5-17.5); Mean Corpuscular Hemoglobin 28.5 pg (28.0-32.0); Mean Corpuscular Volume 91.9 fL (80.0-100.0); Monocytes # (auto) 1.2 10 ^3/uL (0-1.3); Monocytes % (auto) 7.7 % (0.0-12.0); Neutrophils # (auto) 13.3 10 ^3/uL (1.6-8.6); Neutrophils % (auto) 83.9 % (37.0-80.0); Nucleated Red Blood Cells % 0.3 %; Red Blood Cells 3.28 10^6/uL (4.5-5.90); Red Cell Distribution Width 18.5 % (11.8-14.3); White Blood Cell 15.8 10^3/uL (4.4-10.8)
[2024-01-28 05:29] LABS: Alanine Aminotransferase 39 U/L (7-40); Albumin 3.5 g/dL (3.2-4.8); Alkaline Phosphatase 146 U/L (46-116); Anion Gap 7 (5-15); Aspartate Aminotransferase 59 U/L (13-40); BUN/Creatinine Ratio 24.1 (10.0-20.0); Bilirubin, Total 0.5 mg/dL (0.2-1.0); Calcium 10.1 mg/dL (8.7-10.4); Carbon Dioxide 31 mmol/L (20-30); Chloride 95 mmol/L (98-107); Glucose 291 mg/dL (74-106); Potassium 3.3 mmol/L (3.5-5.1); Sodium 133 mmol/L (136-145); Total Protein 7.8 g/dL (5.7-8.2)
[2024-01-28 05:42] LABS: Blood Urea Nitrogen 81 mg/dL (9-23)
[2024-01-28 08:49] LABS: Base Excess 6.6 mmol/L (-2.0-2.0)
[2024-01-28] MEDS: POTASSIUM CHL 20MEQ/100ML 100 ML IV ONE (09:49)
[2024-01-28] MEDS: BUMETANIDE 2.5mg/10ml (0.25 mg/ml) INJ IV ONE (12:43)
[2024-01-28] MEDS: INSULIN LANTUS (GLARGINE) 1 /0.01ml (100units/ml) SC ONE (12:56)
[2024-01-28 13:09] LABS: INR 1.18 (0.9-1.15); Prothrombin Time 12.3 sec (9.3-11.8)
[2024-01-28] MEDS: BUMETANIDE 2.5mg/10ml (0.25 mg/ml) INJ IV SCH (18:11)
[2024-01-28] MEDS: INSULIN LANTUS (GLARGINE) 1 /0.01ml (100units/ml) SC SCH (21:36)
[2024-01-29] VITALS (95 sets, daily range): BP systolic 85–165; BP diastolic 46–73; PULSE 76–101; RESP 12–22; TEMP 94.8–98.8; O2SAT 95–100
[2024-01-29 03:54] LABS: Basophils # (auto) 0.1 10 ^3/uL (0-0.2); Basophils % (auto) 0.5 % (0.0-2.0); Eosinophils # (auto) 0.4 10 ^3/uL (0-0.8); Eosinophils % (auto) 3.2 % (0.0-7.0); Hematocrit 27.8 % (41.0-53.0); Hemoglobin 8.7 g/dL (13.5-17.5); Lymphocytes # (auto) 1.1 10 ^3/uL (0.4-5.4); Lymphocytes % (auto) 8.7 % (10.0-50.0); Mean Corpuscular Hemoglobin 28.7 pg (28.0-32.0); Mean Corpuscular Hgb Conc. 31.4 g/dL (32.0-36.0); Mean Corpuscular Volume 91.5 fL (80.0-100.0); Monocytes % (auto) 8.1 % (0.0-12.0); Neutrophils # (auto) 9.7 10 ^3/uL (1.6-8.6); Neutrophils % (auto) 79.5 % (37.0-80.0); Nucleated Red Blood Cells % 0.1 %; Red Blood Cells 3.04 10^6/uL (4.5-5.90); White Blood Cell 12.2 10^3/uL (4.4-10.8)
[2024-01-29 04:12] LABS: Alanine Aminotransferase 35 U/L (7-40); Alkaline Phosphatase 139 U/L (46-116); Carbon Dioxide 32 mmol/L (20-30); Chloride 95 mmol/L (98-107); Glucose 281 mg/dL (74-106)
[2024-01-29 04:13] LABS: Albumin 3.3 g/dL (3.2-4.8); Anion Gap 7 (5-15); Aspartate Aminotransferase 51 U/L (13-40); BUN/Creatinine Ratio 27.4 (10.0-20.0); Potassium 3.5 mmol/L (3.5-5.1); Sodium 134 mmol/L (136-145)
[2024-01-29 04:14] LABS: Bilirubin, Total 0.4 mg/dL (0.2-1.0); Total Protein 7.3 g/dL (5.7-8.2)
[2024-01-29 04:44] LABS: Blood Urea Nitrogen 90 mg/dL (9-23)
[2024-01-29 07:29] LABS: Base Excess 7.2 mmol/L (-2.0-2.0)
[2024-01-29] MEDS: LIDOCAINE 2%HCL (LOCAL ANESTH.) INJ 20ML MDV ONE (08:44)
[2024-01-29] MEDS: VANCOMYCIN HCL 1000 MG VL ONE ×2 (08:45→11:01)
[2024-01-29] MEDS: IODIXANOL 320MG/ML 100ML BTL IV ONE (08:45)
[2024-01-29] MEDS: VANCOMYCIN 1GM/200ML 200 ML IV ONE (08:46)
[2024-01-29] MEDS: NOREPINEPHRINE 8 MG/250ML KIT 250 ML IV SCH (13:45)
[2024-01-29] MEDS: LIDOCAINE 1% (LOCAL ANESTH.) PF 5ml SDV ID ONE (14:58)
[2024-01-29] MEDS: FLEET ENEMA(ADULT) 135 ML PR ONE (18:18)
[2024-01-29] MEDS: SODIUM CHLOR 0.9% PF (SALINE LOCK) 10ML VIAL/SYR IV SCH (22:20)
[2024-01-30] VITALS (106 sets, daily range): BP systolic 81–160; BP diastolic 42–80; PULSE 87–118; RESP 9–27; TEMP 98.2–99.9; O2SAT 91–100
[2024-01-30 04:14] LABS: Basophils # (auto) 0 10 ^3/uL (0-0.2); Basophils % (auto) 0.4 % (0.0-2.0); Eosinophils # (auto) 0.3 10 ^3/uL (0-0.8); Eosinophils % (auto) 2.4 % (0.0-7.0); Hematocrit 26.9 % (41.0-53.0); Hemoglobin 8.5 g/dL (13.5-17.5); Lymphocytes # (auto) 1.1 10 ^3/uL (0.4-5.4); Lymphocytes % (auto) 9.2 % (10.0-50.0); Mean Corpuscular Hemoglobin 29.3 pg (28.0-32.0); Mean Corpuscular Hgb Conc. 31.7 g/dL (32.0-36.0); Mean Corpuscular Volume 92.4 fL (80.0-100.0); Monocytes # (auto) 1.2 10 ^3/uL (0-1.3); Monocytes % (auto) 9.7 % (0.0-12.0); Neutrophils # (auto) 9.4 10 ^3/uL (1.6-8.6); Neutrophils % (auto) 78.3 % (37.0-80.0); Red Blood Cells 2.91 10^6/uL (4.5-5.90); Red Cell Distribution Width 18.4 % (11.8-14.3)
[2024-01-30 04:26] LABS: Alanine Aminotransferase 34 U/L (7-40); Alkaline Phosphatase 138 U/L (46-116); Anion Gap 9 (5-15); BUN/Creatinine Ratio 27.2 (10.0-20.0); Calcium 9.7 mg/dL (8.7-10.4); Carbon Dioxide 30 mmol/L (20-30); Chloride 95 mmol/L (98-107); Glucose 232 mg/dL (74-106); Magnesium 2.4 mg/dL (1.6-2.6); Potassium 3.3 mmol/L (3.5-5.1); Sodium 134 mmol/L (136-145)
[2024-01-30 04:27] LABS: Albumin 3.3 g/dL (3.2-4.8)
[2024-01-30 04:28] LABS: Aspartate Aminotransferase 44 U/L (13-40); Bilirubin, Total 0.4 mg/dL (0.2-1.0); Total Protein 7.3 g/dL (5.7-8.2)
[2024-01-30 04:41] LABS: Blood Urea Nitrogen 94 mg/dL (9-23)
[2024-01-30 06:24] LABS: Base Excess 1.7 mmol/L (-2.0-2.0)
[2024-01-30] MEDS: POTASSIUM CHL 20MEQ/100ML 100 ML IV SCH (06:43)
[2024-01-30] MEDS: INSULIN LANTUS (GLARGINE) 1 /0.01ml (100units/ml) SC SCH (10:00)
[2024-01-31] VITALS (110 sets, daily range): BP systolic 80–155; BP diastolic 43–108; PULSE 68–108; RESP 8–27; TEMP 97.3–99.3; O2SAT 80–100
[2024-01-31 03:47] LABS: Basophils # (auto) 0 10 ^3/uL (0-0.2); Basophils % (auto) 0.2 % (0.0-2.0); Eosinophils # (auto) 0.4 10 ^3/uL (0-0.8); Eosinophils % (auto) 2.7 % (0.0-7.0); Hematocrit 25.9 % (41.0-53.0); Hemoglobin 8.2 g/dL (13.5-17.5); Lymphocytes # (auto) 1.2 10 ^3/uL (0.4-5.4); Lymphocytes % (auto) 8.8 % (10.0-50.0); Mean Corpuscular Hgb Conc. 31.6 g/dL (32.0-36.0); Mean Corpuscular Volume 91.8 fL (80.0-100.0); Monocytes % (auto) 7.4 % (0.0-12.0); Neutrophils # (auto) 10.7 10 ^3/uL (1.6-8.6); Neutrophils % (auto) 80.9 % (37.0-80.0); Red Blood Cells 2.82 10^6/uL (4.5-5.90); Red Cell Distribution Width 18.6 % (11.8-14.3); White Blood Cell 13.3 10^3/uL (4.4-10.8)
[2024-01-31 04:09] LABS: Alanine Aminotransferase 34 U/L (7-40); Albumin 3.4 g/dL (3.2-4.8); Alkaline Phosphatase 142 U/L (46-116); Anion Gap 10 (5-15); Aspartate Aminotransferase 44 U/L (13-40); BUN/Creatinine Ratio 23.1 (10.0-20.0); Bilirubin, Total 0.4 mg/dL (0.2-1.0); Calcium 9.9 mg/dL (8.7-10.4); Carbon Dioxide 28 mmol/L (20-30); Chloride 96 mmol/L (98-107); Glucose 205 mg/dL (74-106); Magnesium 2.5 mg/dL (1.6-2.6); Potassium 3.4 mmol/L (3.5-5.1); Sodium 134 mmol/L (136-145)
[2024-01-31 04:10] LABS: Total Protein 7.3 g/dL (5.7-8.2)
[2024-01-31 04:14] LABS: Blood Urea Nitrogen 100 mg/dL (9-23)
[2024-01-31 08:06] LABS: Base Excess 1.9 mmol/L (-2.0-2.0)
[2024-01-31] MEDS: POTASSIUM CHL 20MEQ/100ML 100 ML IV ONE (09:21)
[2024-01-31] MEDS: BUMETANIDE 2.5mg/10ml (0.25 mg/ml) INJ IV SCH (09:23)
[2024-01-31 10:42] LABS: Base Excess 2.5 mmol/L (-2.0-2.0)
[2024-01-31] MEDS: ACETYLCYSTEINE 20%(200MG/ML) SOL 4ML NEB SCH (11:42)
[2024-01-31] MEDS: ETOMIDATE (2MG/ML) 20ML VIAL IV ONE ×2 (16:04→16:41)
[2024-01-31] MEDS: ROCURONIUM 10MG/ML 10ML VIAL IV ONE ×2 (16:05→16:42)
[2024-01-31] MEDS: MIDAZOLAM DRIP 50 mg/50mL 50 ML IV SCH (16:43)
[2024-01-31] MEDS: fentaNYL Drip 2500mCg/250mlNS 250 ML IV SCH (16:45)
[2024-01-31 17:50] LABS: Base Excess 1.3 mmol/L (-2.0-2.0)
[2024-02-01] VITALS (103 sets, daily range): BP systolic 86–140; BP diastolic 42–64; PULSE 73–97; RESP 9–22; TEMP 97.9–99; O2SAT 98–100
[2024-02-01 03:43] LABS: Eosinophils # (auto) 0.4 10 ^3/uL (0-0.8); Mean Corpuscular Hgb Conc. 31.9 g/dL (32.0-36.0); Red Cell Distribution Width 18.4 % (11.8-14.3)
[2024-02-01 03:46] LABS: Basophils # (auto) 0.1 10 ^3/uL (0-0.2); Basophils % (auto) 0.6 % (0.0-2.0); Eosinophils % (auto) 3.1 % (0.0-7.0); Hematocrit 23.9 % (41.0-53.0); Hemoglobin 7.6 g/dL (13.5-17.5); Lymphocytes # (auto) 1.7 10 ^3/uL (0.4-5.4); Mean Corpuscular Hemoglobin 29.1 pg (28.0-32.0); Mean Corpuscular Volume 91.1 fL (80.0-100.0); Monocytes # (auto) 1.1 10 ^3/uL (0-1.3); Neutrophils # (auto) 8.8 10 ^3/uL (1.6-8.6); Neutrophils % (auto) 73.3 % (37.0-80.0); Red Blood Cells 2.63 10^6/uL (4.5-5.90); White Blood Cell 12.1 10^3/uL (4.4-10.8)
[2024-02-01 04:05] LABS: Alanine Aminotransferase 31 U/L (7-40); Albumin 3.3 g/dL (3.2-4.8); Alkaline Phosphatase 126 U/L (46-116); Anion Gap 9 (5-15); Aspartate Aminotransferase 38 U/L (13-40); BUN/Creatinine Ratio 22.5 (10.0-20.0); Calcium 9.6 mg/dL (8.7-10.4); Carbon Dioxide 28 mmol/L (20-30); Chloride 97 mmol/L (98-107); Glucose 181 mg/dL (74-106); Magnesium 2.6 mg/dL (1.6-2.6); Potassium 3.2 mmol/L (3.5-5.1); Sodium 134 mmol/L (136-145)
[2024-02-01 04:06] LABS: Bilirubin, Total 0.4 mg/dL (0.2-1.0); Phosphorus 6.4 mg/dL (2.4-5.1)
[2024-02-01 05:37] LABS: Blood Urea Nitrogen 106 mg/dL (9-23)
[2024-02-01 08:08] LABS: Base Excess 1.2 mmol/L (-2.0-2.0)
[2024-02-01] MEDS: POTASSIUM CHL 20MEQ/100ML 100 ML IV ONE (09:59)
[2024-02-01] MEDS: SODIUM CHLORIDE 0.9% 1,000 ML IV SCH (12:45)
[2024-02-02] VITALS (118 sets, daily range): BP systolic 85–149; BP diastolic 41–75; PULSE 20–96; RESP 11–37; TEMP 97.2–98.8; O2SAT 97–100
[2024-02-02 04:15] LABS: Basophils # (auto) 0 10 ^3/uL (0-0.2); Basophils % (auto) 0.5 % (0.0-2.0); Eosinophils # (auto) 0.4 10 ^3/uL (0-0.8); Lymphocytes # (auto) 1.1 10 ^3/uL (0.4-5.4); Mean Corpuscular Hemoglobin 29.9 pg (28.0-32.0); Mean Corpuscular Hgb Conc. 32.4 g/dL (32.0-36.0); Monocytes # (auto) 0.7 10 ^3/uL (0-1.3); Nucleated Red Blood Cells % 0.1 %
[2024-02-02 04:19] LABS: Eosinophils % (auto) 5.3 % (0.0-7.0); Hematocrit 21.4 % (41.0-53.0); Lymphocytes % (auto) 13.5 % (10.0-50.0); Mean Corpuscular Volume 92.3 fL (80.0-100.0); Monocytes % (auto) 8.9 % (0.0-12.0); Neutrophils # (auto) 5.7 10 ^3/uL (1.6-8.6); Neutrophils % (auto) 71.8 % (37.0-80.0); Red Blood Cells 2.32 10^6/uL (4.5-5.90); Red Cell Distribution Width 18.7 % (11.8-14.3); White Blood Cell 7.9 10^3/uL (4.4-10.8)
[2024-02-02 04:35] LABS: Alanine Aminotransferase 24 U/L (7-40); Alkaline Phosphatase 106 U/L (46-116); Anion Gap 9 (5-15); BUN/Creatinine Ratio 21.6 (10.0-20.0); Calcium 8.1 mg/dL (8.7-10.4); Carbon Dioxide 24 mmol/L (20-30); Chloride 104 mmol/L (98-107); Glucose 154 mg/dL (74-106); Magnesium 2.3 mg/dL (1.6-2.6); Potassium 3.5 mmol/L (3.5-5.1); Sodium 137 mmol/L (136-145)
[2024-02-02 04:36] LABS: Albumin 2.7 g/dL (3.2-4.8); Aspartate Aminotransferase 27 U/L (13-40); Bilirubin, Total 0.3 mg/dL (0.2-1.0); Total Protein 5.7 g/dL (5.7-8.2)
[2024-02-02 05:05] LABS: Blood Urea Nitrogen 100 mg/dL (9-23)
[2024-02-02 06:54] LABS: Base Excess -1.1 mmol/L (-2.0-2.0)
[2024-02-02] MEDS: SODIUM CHLORIDE 0.9% 1,000 ML IV SCH (14:00)
[2024-02-02] MEDS: METOCLOPRAMIDE HCL 5MG/ml INJ 2ml VIAL IV SCH (14:00)
[2024-02-02] MEDS: ATORVASTATIN 20 MG TAB PO SCH (21:43)
[2024-02-03] VITALS (104 sets, daily range): BP systolic 101–157; BP diastolic 47–84; PULSE 74–104; RESP 9–23; TEMP 98.1–99.9; O2SAT 97–100
[2024-02-03 04:07] LABS: Basophils # (auto) 0 10 ^3/uL (0-0.2); Basophils % (auto) 0.3 % (0.0-2.0); Eosinophils # (auto) 0.4 10 ^3/uL (0-0.8); Eosinophils % (auto) 4.2 % (0.0-7.0); Hematocrit 27.3 % (41.0-53.0); Hemoglobin 8.9 g/dL (13.5-17.5); Lymphocytes % (auto) 11.9 % (10.0-50.0); Mean Corpuscular Hemoglobin 29.7 pg (28.0-32.0); Mean Corpuscular Hgb Conc. 32.7 g/dL (32.0-36.0); Mean Corpuscular Volume 90.9 fL (80.0-100.0); Monocytes # (auto) 0.9 10 ^3/uL (0-1.3); Monocytes % (auto) 10.4 % (0.0-12.0); Neutrophils # (auto) 6.4 10 ^3/uL (1.6-8.6); Neutrophils % (auto) 73.2 % (37.0-80.0); Nucleated Red Blood Cells % 0.1 %; Red Cell Distribution Width 18.2 % (11.8-14.3); White Blood Cell 8.8 10^3/uL (4.4-10.8)
[2024-02-03 04:24] LABS: Alanine Aminotransferase 23 U/L (7-40); Alkaline Phosphatase 126 U/L (46-116); Anion Gap 11 (5-15); BUN/Creatinine Ratio 20.5 (10.0-20.0); Calcium 9.3 mg/dL (8.7-10.4); Carbon Dioxide 24 mmol/L (20-30); Chloride 102 mmol/L (98-107); Glucose 143 mg/dL (74-106); Magnesium 2.5 mg/dL (1.6-2.6); Potassium 3.9 mmol/L (3.5-5.1); Sodium 137 mmol/L (136-145)
[2024-02-03 04:25] LABS: Albumin 3.2 g/dL (3.2-4.8)
[2024-02-03 04:26] LABS: Aspartate Aminotransferase 28 U/L (13-40); Bilirubin, Total 0.4 mg/dL (0.2-1.0); Total Protein 6.8 g/dL (5.7-8.2)
[2024-02-03 04:57] LABS: Blood Urea Nitrogen 104 mg/dL (9-23)
[2024-02-03 06:56] LABS: Base Excess -4.7 mmol/L (-2.0-2.0)
[2024-02-04] VITALS (109 sets, daily range): BP systolic 114–160; BP diastolic 54–99; PULSE 74–107; RESP 9–38; TEMP 98.1–99.1; O2SAT 94–100
[2024-02-04 04:16] LABS: Basophils # (auto) 0 10 ^3/uL (0-0.2); Basophils % (auto) 0.6 % (0.0-2.0); Eosinophils # (auto) 0.3 10 ^3/uL (0-0.8); Eosinophils % (auto) 3.7 % (0.0-7.0); Hematocrit 27.7 % (41.0-53.0); Hemoglobin 8.9 g/dL (13.5-17.5); Lymphocytes # (auto) 0.8 10 ^3/uL (0.4-5.4); Lymphocytes % (auto) 10.6 % (10.0-50.0); Mean Corpuscular Hemoglobin 29.2 pg (28.0-32.0); Mean Corpuscular Volume 91.3 fL (80.0-100.0); Monocytes # (auto) 0.6 10 ^3/uL (0-1.3); Monocytes % (auto) 7.8 % (0.0-12.0); Neutrophils % (auto) 77.3 % (37.0-80.0); Red Blood Cells 3.04 10^6/uL (4.5-5.90); Red Cell Distribution Width 18.8 % (11.8-14.3); White Blood Cell 7.7 10^3/uL (4.4-10.8)
[2024-02-04 04:25] LABS: Chloride 110 mmol/L (98-107); Potassium 2.9 mmol/L (3.5-5.1); Sodium 144 mmol/L (136-145)
[2024-02-04 04:26] LABS: Anion Gap 9 (5-15); Calcium 9.7 mg/dL (8.7-10.4); Carbon Dioxide 25 mmol/L (20-30)
[2024-02-04 04:31] LABS: BUN/Creatinine Ratio 22.2 (10.0-20.0); Glucose 113 mg/dL (74-106)
[2024-02-04 04:41] LABS: Blood Urea Nitrogen 96 mg/dL (9-23)
[2024-02-04] MEDS: POTASSIUM CHL 20MEQ/100ML 100 ML IV SCH (07:30)
[2024-02-04 08:12] LABS: Base Excess -5.3 mmol/L (-2.0-2.0)
[2024-02-04] MEDS: POTASSIUM CHL 20MEQ/100ML 100 ML IV ONE (09:23)
[2024-02-04] MEDS: LIDOCAINE 2% JELLY 11ml (GLYDO) ONE (10:03)
[2024-02-04] MEDS: SODIUM CHLORIDE 0.9% 1,000 ML IV SCH (14:43)
[2024-02-04] MEDS: hydrALAZINE HCL 20 MG/ML VL IV PRN (14:43)
[2024-02-04] MEDS: hydrALAZINE HCL 20 MG/ML VL ONE (14:46)
[2024-02-04] MEDS: POTASSIUM EFFERVESENT TAB 25 MEQ PO ONE (17:55)
[2024-02-05] VITALS (108 sets, daily range): BP systolic 125–164; BP diastolic 59–90; PULSE 9–110; RESP 11–29; TEMP 98.4–98.8; O2SAT 86–100
[2024-02-05 04:27] LABS: Basophils # (auto) 0.1 10 ^3/uL (0-0.2); Basophils % (auto) 0.6 % (0.0-2.0); Eosinophils # (auto) 0.1 10 ^3/uL (0-0.8); Hematocrit 30.1 % (41.0-53.0); Hemoglobin 9.8 g/dL (13.5-17.5); Lymphocytes # (auto) 0.7 10 ^3/uL (0.4-5.4); Lymphocytes % (auto) 7.3 % (10.0-50.0); Mean Corpuscular Hemoglobin 30.1 pg (28.0-32.0); Mean Corpuscular Hgb Conc. 32.4 g/dL (32.0-36.0); Mean Corpuscular Volume 92.8 fL (80.0-100.0); Monocytes # (auto) 0.6 10 ^3/uL (0-1.3); Monocytes % (auto) 6.6 % (0.0-12.0); Neutrophils % (auto) 84.5 % (37.0-80.0); Red Blood Cells 3.25 10^6/uL (4.5-5.90); Red Cell Distribution Width 19.5 % (11.8-14.3); White Blood Cell 9.4 10^3/uL (4.4-10.8)
[2024-02-05 05:26] LABS: Alanine Aminotransferase 34 U/L (7-40); Albumin 3.6 g/dL (3.2-4.8); Alkaline Phosphatase 147 U/L (46-116); Anion Gap 16 (5-15); Aspartate Aminotransferase 38 U/L (13-40); Bilirubin, Total 0.4 mg/dL (0.2-1.0); Calcium 10.1 mg/dL (8.7-10.4); Carbon Dioxide 19 mmol/L (20-30); Chloride 114 mmol/L (98-107); Glucose 136 mg/dL (74-106); Magnesium 2.2 mg/dL (1.6-2.6); Phosphorus 5.4 mg/dL (2.4-5.1); Potassium 3.3 mmol/L (3.5-5.1); Total Protein 7.6 g/dL (5.7-8.2)
[2024-02-05 05:40] LABS: Sodium 149 mmol/L (136-145)
[2024-02-05 05:50] LABS: BUN/Creatinine Ratio 24.5 (10.0-20.0)
[2024-02-05 05:55] LABS: Blood Urea Nitrogen 85 mg/dL (9-23)
[2024-02-05] MEDS: POTASSIUM CHL 20MEQ/100ML 100 ML IV ONE (07:15)
[2024-02-05] MEDS: SOD CHL 0.45% 1,000 ML IV SCH (07:39)
[2024-02-05 09:50] LABS: Base Excess -3.3 mmol/L (-2.0-2.0)
[2024-02-05] MEDS: POTASSIUM CHLORIDE 40 MEQ in SOD CHL 0.45% 1,000 ML IV SCH (10:38)
[2024-02-05] MEDS ORDERED: DEXTROSE (50%) 50ML SYRG IV PRN (13:00)
[2024-02-05 15:40] LABS: Base Excess -4.3 mmol/L (-2.0-2.0)
[2024-02-05] MEDS: InsuLIN REG 1unit/0.01ml Soln (100units/ml) SC SCH (18:00)
[2024-02-05] MEDS: ACCU-CHEK COMFORT CURVE STRIP VI SCH (19:25)
[2024-02-05] MEDS: POTASSIUM CHL 20MEQ/100ML 100 ML IV SCH (20:39)
[2024-02-06] VITALS (94 sets, daily range): BP systolic 119–165; BP diastolic 55–84; PULSE 94–117; RESP 12–26; TEMP 97.3–99.3; O2SAT 97–100
[2024-02-06 03:47] LABS: Basophils # (auto) 0.1 10 ^3/uL (0-0.2); Basophils % (auto) 0.7 % (0.0-2.0); Eosinophils # (auto) 0 10 ^3/uL (0-0.8); Eosinophils % (auto) 0.4 % (0.0-7.0); Hematocrit 31.5 % (41.0-53.0); Hemoglobin 9.8 g/dL (13.5-17.5); Lymphocytes # (auto) 0.9 10 ^3/uL (0.4-5.4); Lymphocytes % (auto) 10.4 % (10.0-50.0); Mean Corpuscular Hemoglobin 29.1 pg (28.0-32.0); Mean Corpuscular Volume 93.9 fL (80.0-100.0); Monocytes # (auto) 0.6 10 ^3/uL (0-1.3); Monocytes % (auto) 7.7 % (0.0-12.0); Neutrophils # (auto) 6.7 10 ^3/uL (1.6-8.6); Neutrophils % (auto) 80.8 % (37.0-80.0); Red Blood Cells 3.35 10^6/uL (4.5-5.90); White Blood Cell 8.3 10^3/uL (4.4-10.8)
[2024-02-06] MEDS: MORPHINE SULFATE INJ 2 MG/ml SYRG IV PRN (03:47)
[2024-02-06 03:48] LABS: Red Cell Distribution Width 20.9 % (11.8-14.3)
[2024-02-06 04:50] LABS: Alanine Aminotransferase 34 U/L (7-40); Albumin 3.6 g/dL (3.2-4.8); Alkaline Phosphatase 141 U/L (46-116); Anion Gap 16 (5-15); Aspartate Aminotransferase 34 U/L (13-40); BUN/Creatinine Ratio 26.9 (10.0-20.0); Calcium 10.3 mg/dL (8.7-10.4); Carbon Dioxide 20 mmol/L (20-30); Chloride 119 mmol/L (98-107); Glucose 128 mg/dL (74-106); Potassium 3.9 mmol/L (3.5-5.1)
[2024-02-06 04:51] LABS: Bilirubin, Total 0.4 mg/dL (0.2-1.0); Total Protein 7.7 g/dL (5.7-8.2)
[2024-02-06 05:01] LABS: Sodium 155 mmol/L (136-145)
[2024-02-06 05:02] LABS: Blood Urea Nitrogen 88 mg/dL (9-23)
[2024-02-06 09:12] LABS: Chloride 119 mmol/L (98-107); Sodium 153 mmol/L (136-145)
[2024-02-06 09:15] LABS: Anion Gap 16 (5-15); Calcium 9.8 mg/dL (8.5-10.1); Carbon Dioxide 18 mmol/L (20-30)
[2024-02-06 09:20] LABS: BUN/Creatinine Ratio 23.3 (10.0-20.0); Glucose 122 mg/dL (74-106)
[2024-02-06 09:21] LABS: Blood Urea Nitrogen 75 mg/dL (9-23)
[2024-02-06 09:23] LABS: Potassium 6.1 mmol/L (3.5-5.1)
[2024-02-06] MEDS: D5W 5% 1,000 ML IV SCH (10:16)
[2024-02-06] MEDS: FUROSEMIDE 40 MG/4 ML VIAL IV ONE (10:20)
[2024-02-06] MEDS: LEVALBUTEROL HCL 1.25 MG/3 ML NEB NEB ONE (11:10)
[2024-02-06] MEDS ORDERED: CALCIUM GLUC 1,000mg/50ml-NS 50 ML IV ONE (14:00)
[2024-02-06] MEDS ORDERED: SODIUM ZIRCONIUM CYCL 10 GM PAK PO SCH (14:00)
[2024-02-06] MEDS ORDERED: InsuLIN REG 1unit/0.01ml Soln (100units/ml) IV ONE (14:00)
[2024-02-06] MEDS ORDERED: DEXTROSE (50%) 50ML SYRG IV ONE (14:00)
[2024-02-06] MEDS: SODIUM BICARB 8.4% 50Meq/50ml SYR Vial IV ONE (15:19)
[2024-02-06] MEDS ORDERED: DEXTROSE (50%) 50ML SYRG IV PRN (15:45)
[2024-02-06] MEDS: InsuLIN REG 1unit/0.01ml Soln (100units/ml) SC SCH (18:00)
[2024-02-06] MEDS: ACCU-CHEK COMFORT CURVE STRIP VI SCH (18:52)
[2024-02-07] VITALS (66 sets, daily range): BP systolic 130–166; BP diastolic 69–89; PULSE 94–106; RESP 14–28; TEMP 97.9–99.1; O2SAT 95–100
[2024-02-07 03:58] LABS: Basophils # (auto) 0.1 10 ^3/uL (0-0.2); Basophils % (auto) 0.9 % (0.0-2.0); Eosinophils # (auto) 0.1 10 ^3/uL (0-0.8); Eosinophils % (auto) 0.9 % (0.0-7.0); Hemoglobin 10.2 g/dL (13.5-17.5); Lymphocytes # (auto) 1.1 10 ^3/uL (0.4-5.4); Lymphocytes % (auto) 13.6 % (10.0-50.0); Mean Corpuscular Hemoglobin 29.3 pg (28.0-32.0); Mean Corpuscular Hgb Conc. 31.9 g/dL (32.0-36.0); Mean Corpuscular Volume 91.6 fL (80.0-100.0); Monocytes # (auto) 0.9 10 ^3/uL (0-1.3); Monocytes % (auto) 10.9 % (0.0-12.0); Neutrophils # (auto) 6.3 10 ^3/uL (1.6-8.6); Neutrophils % (auto) 73.7 % (37.0-80.0); Red Blood Cells 3.49 10^6/uL (4.5-5.90); White Blood Cell 8.5 10^3/uL (4.4-10.8)
[2024-02-07 04:03] LABS: Red Cell Distribution Width 21.1 % (11.8-14.3)
[2024-02-07 04:07] LABS: Anion Gap 11 (5-15); Carbon Dioxide 27 mmol/L (20-30); Chloride 121 mmol/L (98-107); Sodium 159 mmol/L (136-145)
[2024-02-07 04:08] LABS: Calcium 10.2 mg/dL (8.7-10.4)
[2024-02-07 04:13] LABS: BUN/Creatinine Ratio 26.6 (10.0-20.0); Glucose 157 mg/dL (74-106)
[2024-02-07 04:26] LABS: Blood Urea Nitrogen 87 mg/dL (9-23)
[2024-02-07] MEDS: POTASSIUM CHL 20MEQ/100ML 100 ML IV ONE ×2 (06:22→08:47)
[2024-02-07 09:22] LABS: Base Excess 0.3 mmol/L (-2.0-2.0)
[2024-02-07] MEDS: D5W 5% 1,000 ML IV SCH (11:45)
[2024-02-07 14:34] LABS: Potassium 3.5 mmol/L (3.5-5.1)
[2024-02-07] MEDS ORDERED: LORazepam 2MG/ML-1ML VIAL IV PRN (22:30)
[2024-02-08] VITALS (32 sets, daily range): BP systolic 123–161; BP diastolic 61–90; PULSE 94–112; RESP 14–27; TEMP 97.7–100.4; O2SAT 96–100
[2024-02-08] MEDS: levETIRAcetam 500 mg/100ml 100 ML IV ONE (00:34)
[2024-02-08 03:09] LABS: Base Excess 2.6 mmol/L (-2.0-2.0)
[2024-02-08 04:58] LABS: Basophils # (auto) 0.1 10 ^3/uL (0-0.2); Eosinophils # (auto) 0.1 10 ^3/uL (0-0.8); Eosinophils % (auto) 0.8 % (0.0-7.0); Hematocrit 34.7 % (41.0-53.0); Hemoglobin 11.2 g/dL (13.5-17.5); Lymphocytes # (auto) 1.6 10 ^3/uL (0.4-5.4); Lymphocytes % (auto) 16.9 % (10.0-50.0); Mean Corpuscular Hgb Conc. 32.2 g/dL (32.0-36.0); Mean Corpuscular Volume 93.3 fL (80.0-100.0); Monocytes % (auto) 10.1 % (0.0-12.0); Neutrophils # (auto) 6.9 10 ^3/uL (1.6-8.6); Neutrophils % (auto) 71.2 % (37.0-80.0); Red Blood Cells 3.72 10^6/uL (4.5-5.90); White Blood Cell 9.7 10^3/uL (4.4-10.8)
[2024-02-08 04:59] LABS: Red Cell Distribution Width 20.6 % (11.8-14.3)
[2024-02-08 05:02] LABS: Anion Gap 10 (5-15); Carbon Dioxide 26 mmol/L (20-30); Chloride 122 mmol/L (98-107); Potassium 3.5 mmol/L (3.5-5.1); Sodium 158 mmol/L (136-145)
[2024-02-08 05:08] LABS: BUN/Creatinine Ratio 26.9 (10.0-20.0); Blood Urea Nitrogen 79 mg/dL (9-23); Glucose 168 mg/dL (74-106)
[2024-02-08] MEDS: POTASSIUM EFFERVESENT TAB 25 MEQ PO ONE (09:05)
[2024-02-08] MEDS: NIFEdipine ER 30 MG TAB PO SCH (09:57)
[2024-02-08] MEDS: GABAPENTIN 300 MG CAP PO SCH (22:11)
[2024-02-09] VITALS (32 sets, daily range): BP systolic 96–160; BP diastolic 58–86; PULSE 75–106; RESP 9–20; TEMP 97.8–98.7; O2SAT 96–100
[2024-02-09 05:25] LABS: Basophils # (auto) 0.1 10 ^3/uL (0-0.2); Basophils % (auto) 1.2 % (0.0-2.0); Eosinophils # (auto) 0.2 10 ^3/uL (0-0.8); Eosinophils % (auto) 1.7 % (0.0-7.0); Hematocrit 32.3 % (41.0-53.0); Hemoglobin 10.1 g/dL (13.5-17.5); Lymphocytes # (auto) 2.1 10 ^3/uL (0.4-5.4); Lymphocytes % (auto) 18.3 % (10.0-50.0); Mean Corpuscular Hemoglobin 29.2 pg (28.0-32.0); Mean Corpuscular Hgb Conc. 31.2 g/dL (32.0-36.0); Mean Corpuscular Volume 93.7 fL (80.0-100.0); Monocytes # (auto) 0.8 10 ^3/uL (0-1.3); Monocytes % (auto) 6.8 % (0.0-12.0); Neutrophils # (auto) 8.3 10 ^3/uL (1.6-8.6); Nucleated Red Blood Cells % 0.1 %; Red Blood Cells 3.45 10^6/uL (4.5-5.90); White Blood Cell 11.5 10^3/uL (4.4-10.8)
[2024-02-09 05:28] LABS: Red Cell Distribution Width 20.6 % (11.8-14.3)
[2024-02-09 05:44] LABS: Alanine Aminotransferase 24 U/L (7-40); Albumin 3.3 g/dL (3.2-4.8); Alkaline Phosphatase 123 U/L (46-116); Anion Gap 11 (5-15); Aspartate Aminotransferase 20 U/L (13-40); BUN/Creatinine Ratio 24.6 (10.0-20.0); Bilirubin, Total 0.4 mg/dL (0.2-1.0); Blood Urea Nitrogen 73 mg/dL (9-23); Calcium 9.4 mg/dL (8.7-10.4); Carbon Dioxide 26 mmol/L (20-30); Chloride 115 mmol/L (98-107); Glucose 176 mg/dL (74-106); Potassium 3.6 mmol/L (3.5-5.1)
[2024-02-09 05:47] LABS: Sodium 152 mmol/L (136-145)
[2024-02-10] VITALS (30 sets, daily range): BP systolic 107–154; BP diastolic 56–95; PULSE 84–106; RESP 11–26; TEMP 97.6–98.9; O2SAT 92–100
[2024-02-10 05:46] LABS: Alanine Aminotransferase 19 U/L (7-40); Albumin 3.2 g/dL (3.2-4.8); Alkaline Phosphatase 127 U/L (46-116); Anion Gap 9 (5-15); Aspartate Aminotransferase 19 U/L (13-40); BUN/Creatinine Ratio 24.7 (10.0-20.0); Bilirubin, Total 0.4 mg/dL (0.2-1.0); Blood Urea Nitrogen 66 mg/dL (9-23); Calcium 9.4 mg/dL (8.7-10.4); Carbon Dioxide 27 mmol/L (20-30); Chloride 110 mmol/L (98-107); Glucose 149 mg/dL (74-106); Potassium 3.5 mmol/L (3.5-5.1); Total Protein 6.9 g/dL (5.7-8.2)
[2024-02-10 05:48] LABS: Basophils # (auto) 0.1 10 ^3/uL (0-0.2); Basophils % (auto) 0.7 % (0.0-2.0); Eosinophils # (auto) 0.5 10 ^3/uL (0-0.8); Eosinophils % (auto) 4.6 % (0.0-7.0); Hematocrit 31.9 % (41.0-53.0); Hemoglobin 10.4 g/dL (13.5-17.5); Lymphocytes # (auto) 2.2 10 ^3/uL (0.4-5.4); Lymphocytes % (auto) 22.3 % (10.0-50.0); Mean Corpuscular Hemoglobin 30.3 pg (28.0-32.0); Mean Corpuscular Hgb Conc. 32.5 g/dL (32.0-36.0); Monocytes # (auto) 0.7 10 ^3/uL (0-1.3); Monocytes % (auto) 6.7 % (0.0-12.0); Neutrophils # (auto) 6.6 10 ^3/uL (1.6-8.6); Neutrophils % (auto) 65.7 % (37.0-80.0); Red Blood Cells 3.43 10^6/uL (4.5-5.90)
[2024-02-10 06:03] LABS: Sodium 146 mmol/L (136-145)
[2024-02-10 06:33] LABS: Red Cell Distribution Width 20.5 % (11.8-14.3)
[2024-02-10 08:07] LABS: Anisocytosis Slight; Platelet Estimate Adequate
[2024-02-10] MEDS: CATHFLO ACTIVASE (ALTEPLASE) 2 MG VIAL IV ONE (20:15)
[2024-02-10] MEDS: METOPROLOL TARTRATE 25 MG TAB PO SCH (21:27)
[2024-02-11] VITALS (27 sets, daily range): BP systolic 108–153; BP diastolic 62–89; PULSE 75–98; RESP 10–26; TEMP 97.5–99.3; O2SAT 94–100
[2024-02-11 04:51] LABS: Basophils # (auto) 0 10 ^3/uL (0-0.2); Basophils % (auto) 0.4 % (0.0-2.0); Eosinophils # (auto) 0.4 10 ^3/uL (0-0.8); Eosinophils % (auto) 4.4 % (0.0-7.0); Hematocrit 28.7 % (41.0-53.0); Hemoglobin 9.2 g/dL (13.5-17.5); Lymphocytes % (auto) 19.5 % (10.0-50.0); Mean Corpuscular Hemoglobin 29.9 pg (28.0-32.0); Mean Corpuscular Hgb Conc. 32.1 g/dL (32.0-36.0); Mean Corpuscular Volume 93.1 fL (80.0-100.0); Monocytes # (auto) 0.7 10 ^3/uL (0-1.3); Monocytes % (auto) 7.1 % (0.0-12.0); Neutrophils # (auto) 7.1 10 ^3/uL (1.6-8.6); Neutrophils % (auto) 68.6 % (37.0-80.0); Red Blood Cells 3.09 10^6/uL (4.5-5.90); Red Cell Distribution Width 19.6 % (11.8-14.3); White Blood Cell 10.3 10^3/uL (4.4-10.8)
[2024-02-11 05:09] LABS: Alanine Aminotransferase 19 U/L (7-40); Albumin 3.1 g/dL (3.2-4.8); Alkaline Phosphatase 124 U/L (46-116); Anion Gap 7 (5-15); Aspartate Aminotransferase 20 U/L (13-40); BUN/Creatinine Ratio 23.3 (10.0-20.0); Bilirubin, Total 0.4 mg/dL (0.2-1.0); Blood Urea Nitrogen 60 mg/dL (9-23); Calcium 9.1 mg/dL (8.7-10.4); Carbon Dioxide 26 mmol/L (20-30); Chloride 109 mmol/L (98-107); Glucose 114 mg/dL (74-106); Potassium 3.7 mmol/L (3.5-5.1); Sodium 142 mmol/L (136-145); Total Protein 6.5 g/dL (5.7-8.2)
[2024-02-11] MEDS: SOD CHL 0.45% 1,000 ML IV SCH ×2 (11:46→16:58)
[2024-02-11] MEDS: LACTULOSE 20Gm/30ML SOLN PO ONE (16:58)
[2024-02-11] MEDS: METOPROLOL TARTRATE 25 MG TAB PO SCH (21:33)
[2024-02-11] MEDS: LACTULOSE 20Gm/30ML SOLN PO SCH (21:33)
[2024-02-12] VITALS (22 sets, daily range): BP systolic 118–144; BP diastolic 62–87; PULSE 66–96; RESP 14–19; TEMP 97.3–98.9; O2SAT 90–100
[2024-02-12 06:14] LABS: Alanine Aminotransferase 21 U/L (7-40); Alkaline Phosphatase 148 U/L (46-116); Anion Gap 9 (5-15); Aspartate Aminotransferase 27 U/L (13-40); BUN/Creatinine Ratio 17.6 (10.0-20.0); Calcium 9.3 mg/dL (8.7-10.4); Carbon Dioxide 23 mmol/L (20-30); Chloride 109 mmol/L (98-107); Glucose 108 mg/dL (74-106); Magnesium 1.8 mg/dL (1.6-2.6); Potassium 3.9 mmol/L (3.5-5.1); Sodium 141 mmol/L (136-145)
[2024-02-12 06:15] LABS: Albumin 3.3 g/dL (3.2-4.8); Bilirubin, Total 0.4 mg/dL (0.2-1.0)
[2024-02-12 06:26] LABS: Blood Urea Nitrogen 39 mg/dL (9-23)
[2024-02-12 06:27] LABS: Basophils # (auto) 0 10 ^3/uL (0-0.2); Basophils % (auto) 0.4 % (0.0-2.0); Eosinophils # (auto) 0.5 10 ^3/uL (0-0.8); Eosinophils % (auto) 4.6 % (0.0-7.0); Hemoglobin 11.2 g/dL (13.5-17.5); Lymphocytes # (auto) 1.6 10 ^3/uL (0.4-5.4); Mean Corpuscular Hemoglobin 29.1 pg (28.0-32.0); Mean Corpuscular Hgb Conc. 28.7 g/dL (32.0-36.0); Mean Corpuscular Volume 101.2 fL (80.0-100.0); Monocytes # (auto) 0.8 10 ^3/uL (0-1.3); Monocytes % (auto) 7.5 % (0.0-12.0); Neutrophils # (auto) 8.3 10 ^3/uL (1.6-8.6); Neutrophils % (auto) 73.5 % (37.0-80.0); Red Blood Cells 3.85 10^6/uL (4.5-5.90); White Blood Cell 11.3 10^3/uL (4.4-10.8)
[2024-02-12 06:38] LABS: Red Cell Distribution Width 21.2 % (11.8-14.3)
[2024-02-12] MEDS: PANTOPRAZOLE 40 MG TAB PO SCH (09:32)
[2024-02-13] VITALS (13 sets, daily range): BP systolic 113–145; BP diastolic 60–78; PULSE 77–98; RESP 16–20; TEMP 97.8–98.7; O2SAT 93–100
[2024-02-13 05:56] LABS: Basophils # (auto) 0 10 ^3/uL (0-0.2); Basophils % (auto) 0.3 % (0.0-2.0); Eosinophils # (auto) 0.3 10 ^3/uL (0-0.8); Eosinophils % (auto) 3.1 % (0.0-7.0); Hematocrit 31.1 % (41.0-53.0); Hemoglobin 9.9 g/dL (13.5-17.5); Lymphocytes # (auto) 1.6 10 ^3/uL (0.4-5.4); Lymphocytes % (auto) 17.1 % (10.0-50.0); Mean Corpuscular Hemoglobin 29.2 pg (28.0-32.0); Mean Corpuscular Hgb Conc. 31.7 g/dL (32.0-36.0); Mean Corpuscular Volume 91.9 fL (80.0-100.0); Monocytes # (auto) 0.7 10 ^3/uL (0-1.3); Monocytes % (auto) 7.6 % (0.0-12.0); Neutrophils # (auto) 6.7 10 ^3/uL (1.6-8.6); Neutrophils % (auto) 71.9 % (37.0-80.0); Red Blood Cells 3.38 10^6/uL (4.5-5.90); White Blood Cell 9.3 10^3/uL (4.4-10.8)
[2024-02-13 06:03] LABS: Red Cell Distribution Width 20.3 % (11.8-14.3)
[2024-02-13 06:07] LABS: Anion Gap 8 (5-15); Calcium 9.2 mg/dL (8.7-10.4); Carbon Dioxide 25 mmol/L (20-30); Chloride 108 mmol/L (98-107); Potassium 3.6 mmol/L (3.5-5.1); Sodium 141 mmol/L (136-145)
[2024-02-13 06:13] LABS: BUN/Creatinine Ratio 20.3 (10.0-20.0); Blood Urea Nitrogen 48 mg/dL (9-23); Glucose 125 mg/dL (74-106); Magnesium 1.7 mg/dL (1.6-2.6)
== END 2024-02-13 19:07 | DRG 853 ==
LOC: EDBD 03:23 → EDUNIT# 03:23 → ER 03:23 → TELE 11:48 → TELE-WESTW 17:06 → ICU WEST 01-16 14:37 → DOU IN ICU 02-07 18:28 → TELE-EAST 02-11 22:30
PROVIDERS: ADMIT Internal Medicine; ATTEND Emergency Medicine
PROC: 0QS604Z Reposition Right Upper Femur with Internal Fixation Device, Open Approach (ICD-10-PCS; principal; 2024-01-14 14:02)
PROC: 0BH17EZ Insertion of Endotracheal Airway into Trachea, Via Natural or Artificial Opening (ICD-10-PCS; 2024-01-16)
PROC: 5A1955Z Respiratory Ventilation, Greater than 96 Consecutive Hours (ICD-10-PCS; 2024-01-16)
PROC: 02HV33Z Insertion of Infusion Device into Superior Vena Cava, Percutaneous Approach (ICD-10-PCS; 2024-01-16)
PROC: B548ZZA Ultrasonography of Superior Vena Cava, Guidance (ICD-10-PCS; 2024-01-16)
PROC: 5A12012 Performance of Cardiac Output, Single, Manual (ICD-10-PCS; 2024-01-16)
PROC: 4A133B1 Monitoring of Arterial Pressure, Peripheral, Percutaneous Approach (ICD-10-PCS; 2024-01-19)
PROC: B24BZZ4 Ultrasonography of Heart with Aorta, Transesophageal (ICD-10-PCS; 2024-01-23)
PROC: 0B9D8ZX Drainage of Right Middle Lung Lobe, Via Natural or Artificial Opening Endoscopic, Diagnostic (ICD-10-PCS; 2024-01-26)
PROC: 0JPT0PZ Removal of Cardiac Rhythm Related Device from Trunk Subcutaneous Tissue and Fascia, Open Approach (ICD-10-PCS; 2024-01-29)
PROC: 02PA3MZ Removal of Cardiac Lead from Heart, Percutaneous Approach (ICD-10-PCS; 2024-01-29)
PROC: 0JH606Z Insertion of Pacemaker, Dual Chamber into Chest Subcutaneous Tissue and Fascia, Open Approach (ICD-10-PCS; 2024-01-29)
PROC: 02HK3JZ Insertion of Pacemaker Lead into Right Ventricle, Percutaneous Approach (ICD-10-PCS; 2024-01-29)
PROC: B517YZZ Fluoroscopy of Left Subclavian Vein using Other Contrast (ICD-10-PCS; 2024-01-29)
PROC: 02HV33Z Insertion of Infusion Device into Superior Vena Cava, Percutaneous Approach (ICD-10-PCS; 2024-01-29)
PROC: B548ZZA Ultrasonography of Superior Vena Cava, Guidance (ICD-10-PCS; 2024-01-29)
PROC: 0JPT3XZ Removal of Tunneled Vascular Access Device from Trunk Subcutaneous Tissue and Fascia, Percutaneous Approach (ICD-10-PCS; 2024-01-30)
PROC: 02PYX3Z Removal of Infusion Device from Great Vessel, External Approach (ICD-10-PCS; 2024-01-30)
PROC: 0BH17EZ Insertion of Endotracheal Airway into Trachea, Via Natural or Artificial Opening (ICD-10-PCS; 2024-01-31)
PROC: 30233N1 Transfusion of Nonautologous Red Blood Cells into Peripheral Vein, Percutaneous Approach (ICD-10-PCS; 2024-02-02)
PROC: 5A09357 Assistance with Respiratory Ventilation, Less than 24 Consecutive Hours, Continuous Positive Airway Pressure (ICD-10-PCS; 2024-02-05)
PROC: 5A09357 Assistance with Respiratory Ventilation, Less than 24 Consecutive Hours, Continuous Positive Airway Pressure (ICD-10-PCS; 2024-02-06)
PROC: 5A09357 Assistance with Respiratory Ventilation, Less than 24 Consecutive Hours, Continuous Positive Airway Pressure (ICD-10-PCS; 2024-02-08)
PROC: 5A09357 Assistance with Respiratory Ventilation, Less than 24 Consecutive Hours, Continuous Positive Airway Pressure (ICD-10-PCS; 2024-02-09)
DX: A41.9 Sepsis, unspecified organism (principal); I21.A1 Myocardial infarction type 2; S72.144A Nondisplaced intertrochanteric fracture of right femur, initial encounter for closed fracture; I50.43 Acute on chronic combined systolic (congestive) and diastolic (congestive) heart failure; N17.0 Acute kidney failure with tubular necrosis; I46.9 Cardiac arrest, cause unspecified; R65.21 Severe sepsis with septic shock; J96.01 Acute respiratory failure with hypoxia; I13.0 Hypertensive heart and chronic kidney disease with heart failure and stage 1 through stage 4 chronic kidney disease, or unspecified chronic kidney disease; K92.2 Gastrointestinal hemorrhage, unspecified; L03.115 Cellulitis of right lower limb; I82.611 Acute embolism and thrombosis of superficial veins of right upper extremity; N39.0 Urinary tract infection, site not specified; Q04.6 Congenital cerebral cysts; Z16.19 Resistance to other specified beta lactam antibiotics; Z16.29 Resistance to other single specified antibiotic; Z99.11 Dependence on respirator [ventilator] status; E11.22 Type 2 diabetes mellitus with diabetic chronic kidney disease; E11.51 Type 2 diabetes mellitus with diabetic peripheral angiopathy without gangrene; E78.5 Hyperlipidemia, unspecified; G40.909 Epilepsy, unspecified, not intractable, without status epilepticus; W01.0XXA Fall on same level from slipping, tripping and stumbling without subsequent striking against object, initial encounter; I25.10 Atherosclerotic heart disease of native coronary artery without angina pectoris; E66.01 Morbid (severe) obesity due to excess calories; D63.1 Anemia in chronic kidney disease; M10.9 Gout, unspecified; K80.20 Calculus of gallbladder without cholecystitis without obstruction; N18.31 Chronic kidney disease, stage 3a; E87.5 Hyperkalemia; E87.6 Hypokalemia; I87.2 Venous insufficiency (chronic) (peripheral); Y93.01 Activity, walking, marching and hiking; Y92.009 Unspecified place in unspecified non-institutional (private) residence as the place of occurrence of the external cause; Z83.3 Family history of diabetes mellitus; Z86.73 Personal history of transient ischemic attack (TIA), and cerebral infarction without residual deficits; Z86.74 Personal history of sudden cardiac arrest; Y99.8 Other external cause status; Z68.35 Body mass index [BMI] 35.0-35.9, adult; Z79.82 Long term (current) use of aspirin; Z79.899 Other long term (current) drug therapy; Z45.02 Encounter for adjustment and management of automatic implantable cardiac defibrillator; Z75.1 Person awaiting admission to adequate facility elsewhere; Z98.84 Bariatric surgery status
CPT/HCPCS: 31624; 33207; 33233; 36415; 36569; 36590; 36600; 70450; 71045; 73501; 73502; 73700; 76000; 76604; 76775; 80048; 80053; 80061; 80202; 81001; 82270; 82306; 82570; 82728; 82746; 82805; 82962; 83036; 83540; 83550; 83605; 83615; 83735; 83880; 83935; 83970; 84100; 84132; 84156; 84295; 84300; 84443; 84484; 84550; 85007; 85014; 85018; 85025; 85027; 85045; 85610; 85730; 86850; 86900; 86901; 86920; 87040; 87070; 87076; 87077; 87081; 87086; 87186; 87205; 92507; 92610; 92950; 93005; 93306; 93312; 93971; 94002; 94003; 94640; 94660; 95819; 96361; 96374; 96375; 97110; 97116; 97163; 97530; 99152; A4618; C1713; C9113; G0378; J0171; J0690; J0692; J1100; J1756; J1815; J2250; J2405; J2704; J3480; J3490; J7060; Q9956; Q9967

== ENCOUNTER 2025-05-31 11:44 | Inpatient (IN) | payer MEDICARE, OTHER ==
[~2025-05-31] VITALS: Ht 175.3 cm; Wt 106.5 kg
[~2025-05-31 11:44] MED LIST: ALLO300T2 PO; AMLO1TAB22 PO; FAMO20TA10 PO; FINE10TA PO; GABA-1250 PO; INSU1INJ13 SC; LISI40TA16 PO; METO-289 PO; METO5TAB5 PO; OXCA300T50 PO; SODI10PA PO
--- NOTE | 2025-05-31 13:22 | DVH ---
EXAM: XY CHEST PORTABLE TECHNIQUE: Single frontal chest radiograph CLINICAL HISTORY: sob COMPARISON: XY CHEST PORTABLE on DOS: 02/12/24, XY CHEST XRAY 1 VIEW on DOS: 02/09/24, XY CHEST PORTABL E on DOS: 02/08/24 Findings/Impression: Frontal chest radiograph demonstrates no acute osseous or superficial soft tissue abnormalities. Left chest wall dual-chamber pacemaker with abandoned leads. The trachea is midline. The cardiac silhouette and mediastinum are within normal limits. No pneumothorax, pleural effusions, or consolidations.
[2025-05-31 13:33] LABS: Hematocrit 28.3 % (41.0-53.0); Hemoglobin 9.2 g/dL (13.5-17.5); Mean Corpuscular Hemoglobin 32.2 pg (28.0-32.0); Mean Corpuscular Volume 98.6 fL (80.0-100.0); Nucleated Red Blood Cells % 0.1 %
[2025-05-31 13:47] LABS: INR 1.07 (0.9-1.15); Partial Thromboplastin Time 31.6 SEC (24.5-34.5); Prothrombin Time 11.3 sec (9.3-11.8)
[2025-05-31 13:49] LABS: Alanine Aminotransferase 19 U/L (7-40); Anion Gap 14 (5-15); BUN/Creatinine Ratio 13.7 (10.0-20.0); Carbon Dioxide 22 mmol/L (20-31); Potassium 4.7 mmol/L (3.5-5.1); Total Protein 6.7 g/dL (5.7-8.2)
[2025-05-31 13:50] LABS: Albumin 3.1 g/dL (3.2-4.8); Alkaline Phosphatase 194 U/L (46-116); Bilirubin, Total < 0.2 mg/dL (0.2-1.0); Blood Urea Nitrogen 71 mg/dL (9-23); Calcium 8.2 mg/dL (8.7-10.4); Chloride 97 mmol/L (98-107); Glucose 293 mg/dL (74-106); Sodium 133 mmol/L (136-145)
[2025-05-31 14:00] LABS: Lactic Acid w/Reflex 3.6 mmol/L (0.4-2.0)
--- NOTE | 2025-05-31 14:50 | ED.PDOC ---
History of Present Illness HPI Comments 51-year-old male brought by family because he has has wound in the right buttocks feeling weak more more every day disoriented. Patient is unable to answering any questions. History of hypertension CVA diabetes. Heart rate was 78 on arrival with blood pressure 122/77. Unable to get any history from the patient. Chief Complaint: ALOC Time Seen by MD: 12:03 Primary Care Provider: SUMIT Reviewed Notes: Nurses Notes, Medications, Allergies Allergies: Coded Allergies: NO KNOWN ALLERGIES (Unverified , 01/14/24) Home Meds Reported Medications Finerenone (Kerendia) 10 Mg Tab, 1 TAB PO DAILY 01/15/24 Insulin Degludec (Tresiba Flextouch) 200 Unit/Ml Inj, 54 UNIT SC DAILY 01/15/24 Metoprolol Succinate (Metoprolol Succinate Er) 50 Mg Tab, 50 TAB PO DAILY 01/14/24 Amlodipine Besylate (Amlodipine Besylate) 5 Mg Tab, 1 TAB PO DAILY 01/14/24 Famotidine (PEPCID TABLET) 20 Mg Tb, 1 TAB PO BID 01/14/24 Metolazone (Metolazone) 5 Mg Tab, 1 TAB PO DAILY 01/14/24 Sodium Zirconium Cyclosilicate (Lokelma) 10 Gm Masood, 1 PKT PO DAILY 01/14/24 Oxcarbazepine (OXTELLAR XR) 300 Mg Tab, 300 MG PO BID 01/14/24 Lisinopril (Lisinopril) 40 Mg Tab, 1 TAB PO DAILY 01/14/24 Allopurinol (Allopurinol) 300 Mg Tab, 300 TAB PO BID 01/14/24 Gabapentin (Gabapentin) 300 Mg Cap, 1 CAP PO DAILY 01/14/24 Information Source: Relative (Sibling) Mode of Arrival: Wheelchair Severity: Moderate Timing: Days Duration: Since onset Past Medical History PAST MEDICAL HISTORY: CKF, CVA, DM, HTN Surgical History: Pacemaker Family History Family History: Reviewed,noncontributory to illness Social History Smoker: Non-Smoker Alcohol: Denies ETOH Use Drugs: Denies Drug Use Lives In: Home Unable to Obtain due to: Altered Mental Status Physical Exam General Appearance: Moderate Distress HEENT: Normal ENT Inspection, Pharynx Normal, TMs Normal Neck: Full Range of Motion, Non-Tender, Normal, Normal Inspection Respiratory: Chest Non-Tender, Lungs Clear, No Accessory Muscle Use, No Respiratory Distress, Normal Breath Sounds Cardiovascular: No Edema, No JVD, No Murmur, No Gallop, Normal Peripheral Pulses, Regular Rate/Rhythm Breast Exam: Deferred Gastrointestinal: No Organomegaly, Non Tender, No Pulsatile Mass, Normal Bowel Sounds, Soft Genitalia: Deferred Pelvic: Deferred Rectal: Deferred Extremities: No calf tenderness, No pedal edema Musculoskeletal : Apperance: Normal Neurologic: Disoriented Cerebellar Function: NOT DONE Reflexes: NOT DONE Skin: Pallor Peripheral Pulses: 3+ Radial (R), 3+ Radial (L) Lymphatic: No Adenopathy Was a procedure done? Was a procedure done?: No Differential Dx Considerations may include: Sepsis Electrolyte imbalance X-Ray, Labs, Meds, VS Vital Signs Date Time Temp Pulse Resp B/P (MAP) Pulse Ox O2 Delivery O2 Flow Rate FiO2 05/31/25 15:01 97.7 81 15 130/71 (90) 97.7 05/31/25 15:01 81 15 97 Room Air 05/31/25 11:59 77 05/31/25 11:46 98.2 78 16 122/77 96 98.2 Lab Test 05/31/25 14:41 05/31/25 12:55 Range/Units Lactic Acid Level 1.9 3.6 *H 0.4-2.0 mmol/L White Blood Count 14.4 H 4.4-10.8 10^3/uL Red Blood Count 2.87 L 4.5-5.90 10^6/uL Hemoglobin 9.2 L 13.5-17.5 g/dL Hematocrit 28.3 L 41.0-53.0 % Mean Corpuscular Volume 98.6 80.0-100.0 fL Mean Corpuscular Hemoglobin 32.2 H 28.0-32.0 pg Mean Corpuscular Hemoglobin Concent 32.7 32.0-36.0 g/dL Red Cell Distribution Width 14.7 H 11.8-14.3 % Platelet Count 414 140-450 10^3/uL Mean Platelet Volume 9.1 6.9-10.8 fL Neutrophils (%) (Auto) 83.6 H 37.0-80.0 % Lymphocytes (%) (Auto) 9.0 L 10.0-50.0 % Monocytes (%) (Auto) 5.6 0.0-12.0 % Eosinophils (%) (Auto) 1.0 0.0-7.0 % Basophils (%) (Auto) 0.8 0.0-2.0 % Neutrophils # (Auto) 12.1 H 1.6-8.6 10 ^3/uL Lymphocytes # (Auto) 1.3 0.4-5.4 10 ^3/uL Monocytes # (Auto) 0.8 0-1.3 10 ^3/uL Eosinophils # (Auto) 0.2 0-0.8 10 ^3/uL Basophils # (Auto) 0.1 0-0.2 10 ^3/uL Nucleated Red Blood Cells 0.1 % Prothrombin Time 11.3 9.3-11.8 sec Prothrombin Time INR 1.07 0.9-1.15 Activated Partial Thromboplast Time 31.6 24.5-34.5 SEC Sodium Level 133 L 136-145 mmol/L Potassium Level 4.7 3.5-5.1 mmol/L Chloride Level 97 L 98-107 mmol/L Carbon Dioxide Level 22 20-31 mmol/L Anion Gap 14 5-15 Blood Urea Nitrogen 71 H 9-23 mg/dL Creatinine 5.20 H 0.700-1.30 mg/dL Glomerular Filtration Rate Calc 12 >90 mL/min BUN/Creatinine Ratio 13.7 10.0-20.0 Serum Glucose 293 H 74-106 mg/dL Calcium Level 8.2 L 8.7-10.4 mg/dL Total Bilirubin < 0.2 L 0.2-1.0 mg/dL Aspartate Amino Transferase (AST) 21 13-40 U/L Alanine Aminotransferase (ALT) 19 7-40 U/L Alkaline Phosphatase 194 H 46-116 U/L Total Protein 6.7 5.7-8.2 g/dL Albumin 3.1 L 3.2-4.8 g/dL Current Medications Medications (Trade) Dose Ordered Sig/Esteban Route Start Time Stop Time Status Last Admin Cefepime HCl 50 ml @ 12.5 mls/hr Q24H IV 05/31/25 14:00 05/31/25 15:08 Sodium Chloride 1,000 ml @ 1,000 mls/hr Q1H ONCE IV 05/31/25 13:00 05/31/25 13:59 DC 05/31/25 15:08 Patient altered. Unable to get any history from the patient. Vitals stable. No sign of any injuries. WBC elevated. Sepsis protocol. Blood sugar elevated. Fluids. Was given antibiotics. EKG reviewed does not show any acute changes. Explained to family. Continue to monitoring. [address] [address] Ph: [phone] DIAGNOSTIC IMAGING Diagnostic Imaging Report : [id number] Signed PATIENT: MARISA ABAD ACCT: [id number] UNIT: [id number] : 1965 LOC: ER ROOM / BED: / AGE / SEX: 59 / M ADM STATUS: REG ER SERVICE 1249 ORDERING PHYSICIAN: EMERSON OLIVAREZ MD PROCEDURE(s): CXRP - CHEST PORTABLE REASON: sob ORDER NUMBER(s): [id number], ACCESSION NUMBER(s): [id number] EXAM: XY CHEST PORTABLE TECHNIQUE: Single frontal chest radiograph CLINICAL HISTORY: sob COMPARISON: XY CHEST PORTABLE on DOS: 02/12/24, XY CHEST XRAY 1 VIEW on DOS: 02/09/24, XY CHEST PORTABLE on DOS: 02/08/24 Findings/Impression: Frontal chest radiograph demonstrates no acute osseous or superficial soft tissue abnormalities. Left chest wall dual-chamber pacemaker with abandoned leads. The trachea is midline. The cardiac silhouette and mediastinum are within normal limits. No pneumothorax, pleural effusions, or consolidations. ATED BY: MIRANDA CAMPBELL DO DICTATED DATE/TIME: 05/31/251318 SIGNED BY: MIRANDA CAMPBELL DO SIGNED DATE/TIME: 05/31/25 1319 CC: Time of 1ST Reevaluation: 14:47 Reevaluation 1ST: Unchanged Patient Education/Counseling: Other (Disoriented) Family Education/Counseling: Need For Follow Up SEPSIS Sepsis Screen Date sepsis recognized/suspect: May 31, 2025 Time Sepsis recognized/suspect: 1149 Recent Procedure: No On Antibiotic Therapy: No Respiratory Rate >20: No Heart Rate >90: No Temp<36 C (96.8 F) or >38.3 C: No SBP <90 or MAP <65 mmHG: No New Acute Mental Status Change: No Is the patient on CPAP, BIPAP,: No Physician Orders Electrocardigram (05/31/25 12:04) Electrocardigram (05/31/25 13:04) Urinalysis (05/31/25 12:49) Chest Portable (05/31/25 12:49) Accucheck (05/31/25 12:49) Blood Culture (05/31/25 12:49) Cefepime 1gm/ 50ml (Maxipime 1gm/50ml) (05/31/25 14:00) Notify Md If Map <65 Or Bp<90 (05/31/25 12:49) If Map<65 Start Vasopressor (05/31/25 12:49) Sepsis Reassesment After Fluid (05/31/25 13:49) Sodium Chloride 0.9% (05/31/25 13:00) Vital Signs Date Time Temp Pulse Resp B/P (MAP) Pulse Ox O2 Delivery O2 Flow Rate FiO2 05/31/25 15:01 97.7 81 15 130/71 (90) 97.7 05/31/25 15:01 81 15 97 Room Air 05/31/25 11:59 77 05/31/25 11:46 98.2 78 16 122/77 96 98.2 Laboratory Tests Test 05/31/25 12:55 05/31/25 14:41 Lactic Acid Level 3.6 mmol/L (0.4-2.0) *H 1.9 mmol/L (0.4-2.0) White Blood Count 14.4 10^3/uL (4.4-10.8) H Medications Medications Dose Ordered Sig/Esteban Route Start Time Stop Time Status Last Admin Dose Admin Cefepime HCl 50 ml @ 12.5 mls/hr Q24H IV 05/31/25 14:00 05/31/25 15:08 Sodium Chloride 1,000 ml @ 1,000 mls/hr Q1H ONCE IV 05/31/25 13:00 05/31/25 13:59 DC 05/31/25 15:08 Departure 1 Departure Time of Disposition: 14:49 Impression: Primary Impression: Metabolic encephalopathy Additional Impressions: Sepsis, unspecified organism Qualified Codes: A41.9 - Sepsis, unspecified organism Uncontrolled diabetes mellitus Qualified Codes: E13.65 - Other specified diabetes mellitus with hyperglycemia Disposition: 09 ADMITTED INPATIENT Admit to: Med Surg Condition: Guarded Critical Care Note Critical Care Time?: Yes (90 min-critical care time only) Stability Stability form required: No Heart Score Heart Score: Heart Score Response (Comments) Value History Slightly Suspicious 0 EKG Normal 0 Age 45-64 1 Risk Factors >3 or Hx ASHD 2 Troponin Normal limit 0 Total 3 I personally scribed for EMERSON OLIVAREZ MD ([email or web address]) on 05/31/25 at 16:34. Electronically submitted by Bhavna Roman [email or web address]). EMERSON OLIVAREZ MD May 31, 2025 14:50
[2025-05-31] MEDS: CEFEPIME 1GM/ 50ML 50 ML IV SCH (15:08)
[2025-05-31] MEDS: SODIUM CHLORIDE 0.9% 1,000 ML IV ONE ×2 (15:08→20:03)
[2025-05-31] MEDS ORDERED: ONDANSETRON HCL 4 MG/2 ML VIAL IV PRN (19:15)
[2025-05-31] MEDS ORDERED: DOCUSATE SOD 100 MG CAP PO PRN (19:15)
[2025-05-31] MEDS ORDERED: DEXTROSE (50%) 50ML SYRG IV PRN (19:15)
[2025-05-31] MEDS ORDERED: HYDROcodone-ACET 5/325MG TAB PO PRN (19:15)
[2025-05-31] MEDS ORDERED: VANCOMYCIN PER PHARMACY 0 MG IV SCH (19:15)
--- NOTE | 2025-05-31 19:18 | DVHHP2 ---
Admitting Diagnosis: buttock wound History of Present Illness 51-year-old male brought by family because he has has wound in the right buttocks feeling weak more more every day disoriented. Patient is unable to a nswering any questions. History of hypertension CVA diabetes. Heart rate was 78 on arrival with blood pressure 122/77. Unable to get any history from the patient. Pt sister he has been having one for overweight and scanning more red blisters pop. Patient concern for infection. No fever chills PAST MEDICAL HISTORY: CKF, CVA, DM, HTN Surgical History: Pacemaker Family History Family History: Reviewed,noncontributory to illness Social History Smoker: Non-Smoker Alcohol: Denies ETOH Use Drugs: Denies Drug Use Lives In: Home Patient Family History: Diabetes mellitus G8 MOTHER G8 FATHER, Allergies: Coded Allergies: NO KNOWN ALLERGIES (Unverified , 01/14/24) Home Meds Reported Medications Finerenone (Kerendia) 10 Mg Tab, 1 TAB PO DAILY 01/15/24 Insulin Degludec (Tresiba Flextouch) 200 Unit/Ml Inj, 54 UNIT SC DAILY 01/15/24 Metoprolol Succinate (Metoprolol Succinate Er) 50 Mg Tab, 50 TAB PO DAILY 01/14/24 Amlodipine Besylate (Amlodipine Besylate) 5 Mg Tab, 1 TAB PO DAILY 01/14/24 Famotidine (PEPCID TABLET) 20 Mg Tb, 1 TAB PO BID 01/14/24 Metolazone (Metolazone) 5 Mg Tab, 1 TAB PO DAILY 01/14/24 Sodium Zirconium Cyclosilicate (Lokelma) 10 Gm Masood, 1 PKT PO DAILY 01/14/24 Oxcarbazepine (OXTELLAR XR) 300 Mg Tab, 300 MG PO BID 01/14/24 Lisinopril (Lisinopril) 40 Mg Tab, 1 TAB PO DAILY 01/14/24 Allopurinol (Allopurinol) 300 Mg Tab, 300 TAB PO BID 01/14/24 Gabapentin (Gabapentin) 300 Mg Cap, 1 CAP PO DAILY 01/14/24 Current Medications Current Medications Medications (Trade) Dose Ordered Sig/Esteban Route PRN Reason Start Time Stop Time Status Last Admin Cefepime HCl 50 ml @ 12.5 mls/hr Q24H IV 05/31/25 14:00 05/31/25 15:08 Vital Signs Vital Signs Date Time Temp Pulse Resp B/P (MAP) Pulse Ox O2 Delivery O2 Flow Rate FiO2 05/31/25 15:01 97.7 81 15 130/71 (90) 97.7 05/31/25 15:01 97 Room Air Physical Exam Generally-59 years old male, overweight, sitting on chair. No apparent distress HEENT-atraumatic, normocephalic Heart-regular rate and rhythm Lungs clear to auscultate bilaterally Abdomen soft nontender nondistended Musculoskeletal-no edema cyanosis. Right buttock erythema, open one no visible pus Neuro-AO x3, no focal deficits SEPSIS Sepsis Screen Date sepsis recognized/suspect: May 31, 2025 Time Sepsis recognized/suspect: 1149 Recent Procedure: No On Antibiotic Therapy: No Respiratory Rate >20: No Heart Rate >90: No Temp<36 C (96.8 F) or >38.3 C: No SBP <90 or MAP <65 mmHG: No New Acute Mental Status Change: No Is the patient on CPAP, BIPAP,: No Physician Orders Electrocardigram (05/31/25 12:04) Electrocardigram (05/31/25 13:04) Urinalysis (05/31/25 12:49) Chest Portable (05/31/25 12:49) Accucheck (05/31/25 12:49) Blood Culture (05/31/25 12:49) Cefepime 1gm/ 50ml (Maxipime 1gm/50ml) (05/31/25 14:00) Notify Md If Map <65 Or Bp<90 (05/31/25 12:49) If Map<65 Start Vasopressor (05/31/25 12:49) Sepsis Reassesment After Fluid (05/31/25 13:49) Sodium Chloride 0.9% (05/31/25 13:00) Vancomycin Per Pharmacy (05/31/25 19:15) Zosyn Extended Infusion (05/31/25 22:00) * Wound Consult (05/31/25 ) Wound Culture W/ Gs (05/31/25 19:04) Amlodipine Tablet (Norvasc Tablet) (06/01/25 10:00) Famotidine Tablet (Pepcid Tablet) (05/31/25 22:00) Metolazone (Zaroxolyn) (06/01/25 10:00) Metoprolol Xl Succinate (Toprol Xl) (06/01/25 10:00) (Nf) Finerenone (Kerendia) (06/01/25 10:00) (Nf) Oxcarbazepine (Oxtellar Xr) (05/31/25 22:00) Insulin Lantus (Glargine) (Lantus) (05/31/25 22:00) Glucose Blood (Accu-Chek Comfort Curve T (05/31/25 22:00) Bedtime Insulin Scale (05/31/25 22:00) Moderate Insulin Ss (06/01/25 07:00) Dextrose 50% Syringe (05/31/25 19:15) C-Reactive Protein (05/31/25 19:04) Procalcitonin (05/31/25 19:04) NS (05/31/25 19:15) Admit (05/31/25 19:04) Code Status (05/31/25:) Vital Signs .PER UNIT PROTOCOL (05/31/25 19:04) Review Orders With Adm. (05/31/25 19:04) Encourage Activity As Tolerate (05/31/25 19:04) Consistent Carb(Ccho)Diabetes (06/01/25 Breakfast) Sodium Chloride Lock (Saline Lock Ns) (05/31/25 22:00) Docusate Sodium Capsule (Colace Capsule) (05/31/25 19:15) Acetaminophen Tablet (Tylenol Tablet) (05/31/25 19:15) Notify Md Of Changes From Base (05/31/25 19:04) Advance Directive (05/31/25 19:04) Patient Condition (05/31/25 19:04) Allergies (05/31/25 19:04) Hydrocodone-Acet 5/325mg Tab ([place] /32 (05/31/25 19:15) Ondansetron Hcl (Zofran) (05/31/25 19:15) Complete Blood Count (06/01/25 05:00) Complete Blood Count (06/02/25 05:00) Complete Blood Count (06/03/25 05:00) Complete Blood Count (06/04/25 05:00) Complete Blood Count (06/05/25 05:00) Comprehensive Metabolic Panel (06/01/25 05:00) Comprehensive Metabolic Panel (06/02/25 05:00) Comprehensive Metabolic Panel (06/03/25 05:00) Comprehensive Metabolic Panel (06/04/25 05:00) Comprehensive Metabolic Panel (06/05/25 05:00) Vital Signs Date Time Temp Pulse Resp B/P (MAP) Pulse Ox O2 Delivery O2 Flow Rate FiO2 05/31/25 15:01 97.7 81 15 130/71 (90) 97.7 05/31/25 15:01 81 15 97 Room Air 05/31/25 11:59 77 05/31/25 11:46 98.2 78 16 122/77 96 98.2 Laboratory Tests Test 05/31/25 12:55 05/31/25 14:41 Lactic Acid Level 3.6 mmol/L (0.4-2.0) *H 1.9 mmol/L (0.4-2.0) White Blood Count 14.4 10^3/uL (4.4-10.8) H Medications Medications Dose Ordered Sig/Esteban Route Start Time Stop Time Status Last Admin Dose Admin Cefepime HCl 50 ml @ 12.5 mls/hr Q24H IV 05/31/25 14:00 05/31/25 15:08 Sodium Chloride 1,000 ml @ 1,000 mls/hr Q1H ONCE IV 05/31/25 13:00 05/31/25 13:59 DC 05/31/25 15:08 Results Labs Test 05/31/25 14:41 05/31/25 12:55 Range/Units Lactic Acid Level 1.9 0.4-2.0 mmol/L White Blood Count 14.4 H 4.4-10.8 10^3/uL Red Blood Count 2.87 L 4.5-5.90 10^6/uL Hemoglobin 9.2 L 13.5-17.5 g/dL Hematocrit 28.3 L 41.0-53.0 % Mean Corpuscular Volume 98.6 80.0-100.0 fL Mean Corpuscular Hemoglobin 32.2 H 28.0-32.0 pg Mean Corpuscular Hemoglobin Concent 32.7 32.0-36.0 g/dL Red Cell Distribution Width 14.7 H 11.8-14.3 % Platelet Count 414 140-450 10^3/uL Mean Platelet Volume 9.1 6.9-10.8 fL Neutrophils (%) (Auto) 83.6 H 37.0-80.0 % Lymphocytes (%) (Auto) 9.0 L 10.0-50.0 % Monocytes (%) (Auto) 5.6 0.0-12.0 % Eosinophils (%) (Auto) 1.0 0.0-7.0 % Basophils (%) (Auto) 0.8 0.0-2.0 % Neutrophils # (Auto) 12.1 H 1.6-8.6 10 ^3/uL Lymphocytes # (Auto) 1.3 0.4-5.4 10 ^3/uL Monocytes # (Auto) 0.8 0-1.3 10 ^3/uL Eosinophils # (Auto) 0.2 0-0.8 10 ^3/uL Basophils # (Auto) 0.1 0-0.2 10 ^3/uL Nucleated Red Blood Cells 0.1 % Prothrombin Time 11.3 9.3-11.8 sec Prothrombin Time INR 1.07 0.9-1.15 Activated Partial Thromboplast Time 31.6 24.5-34.5 SEC Sodium Level 133 L 136-145 mmol/L Potassium Level 4.7 3.5-5.1 mmol/L Chloride Level 97 L 98-107 mmol/L Carbon Dioxide Level 22 20-31 mmol/L Anion Gap 14 5-15 Blood Urea Nitrogen 71 H 9-23 mg/dL Creatinine 5.20 H 0.700-1.30 mg/dL Glomerular Filtration Rate Calc 12 >90 mL/min BUN/Creatinine Ratio 13.7 10.0-20.0 Serum Glucose 293 H 74-106 mg/dL Calcium Level 8.2 L 8.7-10.4 mg/dL Total Bilirubin < 0.2 L 0.2-1.0 mg/dL Aspartate Amino Transferase (AST) 21 13-40 U/L Alanine Aminotransferase (ALT) 19 7-40 U/L Alkaline Phosphatase 194 H 46-116 U/L Total Protein 6.7 5.7-8.2 g/dL Albumin 3.1 L 3.2-4.8 g/dL Primary Diagnosis Right buttock open wound cellulitis Plan Start patient on vanco and Zosyn for broad-spectrum antibiotics IV fluids CRP, pro count Dr. Schuster for RUBEN on CKD Trend renal function Resume home insulin 52 units Lantus Sliding scale moderate. Fingerstick 140-180 Wound care consult renal dose meds Full code Low carb diet No GI prophylaxis needed Heparin for DVT prophylaxis Plan discussed with: Patient Problems List: (1) Acute kidney injury superimposed on CKD (2) Sepsis, unspecified organism Status: Acute (3) Uncontrolled diabetes mellitus Status: Acute Date of Service: May 31, 2025 Billing Provider: DEVON GOODMAN MD Common Visit Codes: [id number] INP/OBS CARE (HIGH) DEVON GOODMAN MD May 31, 2025 19:18
[2025-05-31] MEDS: VANCOMYCIN 1GM/200ML PM 200 ML IV ONE (19:54)
[2025-05-31] MEDS: ACCU-CHEK COMFORT CURVE STRIP VI SCH (22:00)
[2025-05-31] MEDS: SODIUM CHLOR 0.9% PF (SALINE LOCK) 10ML VIAL/SYR IV SCH (22:00)
[2025-05-31] MEDS ORDERED: PIPERACILLIN-TAZOB 3.375GM 100 ML IV SCH (22:00)
[2025-05-31] MEDS: INSULIN LANTUS (GLARGINE) 1 /0.01ml (100units/ml) SC SCH (22:30)
[2025-05-31] MEDS: FAMOTIDINE 20 MG TAB PO SCH (23:30)
[2025-05-31] MEDS: InsuLIN REG 1unit/0.01ml Soln (100units/ml) SC SCH (23:31)
[2025-06-01] VITALS (7 sets, daily range): BP systolic 121–146; BP diastolic 65–83; PULSE 76–85; RESP 15–18; TEMP 97–98.3; O2SAT 93–100
[2025-06-01] MEDS: SODIUM CHLORIDE 0.9% 1,000 ML IV ONE (01:59)
[2025-06-01] MEDS: InsuLIN REG 1unit/0.01ml Soln (100units/ml) SC SCH (07:06)
[2025-06-01] MEDS ORDERED: FURO40TA4 PO (08:25)
[2025-06-01] MEDS ORDERED: METOPROLOL SUCCINATE XL 50 MG TAB PO SCH (10:00)
[2025-06-01] MEDS: METOPROLOL SUCCINATE XL 50 MG TAB PO SCH (10:35)
[2025-06-01 10:36] LABS: Hematocrit 28.4 % (41.0-53.0); Hemoglobin 9.5 g/dL (13.5-17.5); Mean Corpuscular Hemoglobin 32.8 pg (28.0-32.0); Mean Corpuscular Volume 98.6 fL (80.0-100.0); Nucleated Red Blood Cells % 0.1 %
[2025-06-01] MEDS ORDERED: BACDST PO (10:41)
[2025-06-01] MEDS ORDERED: [UNRECOGNIZED DRUG - CODE] PO (10:41)
[2025-06-01 10:43] LABS: Alanine Aminotransferase 17 U/L (7-40); Albumin 3.2 g/dL (3.2-4.8); Anion Gap 11 (5-15); BUN/Creatinine Ratio 13.6 (10.0-20.0); Carbon Dioxide 23 mmol/L (20-31); Chloride 100 mmol/L (98-107); Potassium 4.2 mmol/L (3.5-5.1); Total Protein 6.9 g/dL (5.7-8.2)
[2025-06-01 10:55] LABS: Alkaline Phosphatase 180 U/L (46-116); Bilirubin, Total 0.2 mg/dL (0.2-1.0); Blood Urea Nitrogen 66 mg/dL (9-23); Calcium 8.5 mg/dL (8.7-10.4); Glucose 191 mg/dL (74-106); Sodium 134 mmol/L (136-145)
--- NOTE | 2025-06-01 13:30 | DVHPN2 ---
Reviewed: Care Plan, H&P, Labs, Medications, Previous Orders, Radiology Changes from previous H/P or p: No Changes Objective Vitals Vital Signs Date Time Temp Pulse Resp B/P (MAP) Pulse Ox O2 Delivery O2 Flow Rate FiO2 06/01/25 12:46 98.0 76 17 146/83 (104) 97 98.0 06/01/25 08:00 Room Air* 0 21 Intake/Output Intake and Output 06/01/25 07:00 Intake Total 400 ml Balance 400 ml Intake Oral 200 ml IV Total 200 ml # Voids 5 # Bowel Movements 1 Medications Current Medications Medications Dose Ordered Sig/Esteban Route Start Time Stop Time Status Last Admin Dose Admin Cefepime HCl 50 ml @ 12.5 mls/hr Q24H IV 05/31/25 14:00 05/31/25 15:08 12.5 MLS/HR Vancomycin HCl 0 ml @ 0 mls/hr UD IV 05/31/25 19:15 Piperacillin Sod/ Tazobactam Sod 100 ml @ 25 mls/hr Q12HR IV 05/31/25 22:00 Hold Amlodipine Besylate 5 mg DAILY PO 06/01/25 10:00 Famotidine 20 mg DAILY PO 05/31/25 22:00 06/01/25 10:25 20 MG Metolazone 5 mg DAILY PO 06/01/25 10:00 Patient Own Medication 300 mg BID PO 05/31/25 22:00 Insulin Glargine 52 units HS SC 05/31/25 22:00 Diagnostic Test (Pha) 1 strip ACHS 05/31/25 22:00 06/01/25 11:30 1 STRIP Insulin Human Regular HS SC 05/31/25 22:00 05/31/25 23:31 10 UNITS Insulin Human Regular AC SC 06/01/25 07:00 06/01/25 12:14 6 UNITS Dextrose 50 ml UD PRN IV 05/31/25 19:15 Sodium Chloride 10 ml Q8HR IV 05/31/25 22:00 06/01/25 05:21 10 ML Docusate Sodium 100 mg BIDPRN PRN PO 05/31/25 19:15 Acetaminophen 650 mg Q6HP PRN PO 05/31/25 19:15 Acetaminophen/ Hydrocodone Bitart 1 tab Q4HP PRN PO 05/31/25 19:15 Ondansetron HCl 4 mg Q4HP PRN IV 05/31/25 19:15 Metoprolol Succinate 50 mg DAILY PO 06/01/25 10:10 06/01/25 10:35 50 MG Laboratory Results Laboratory Tests 06/01/25 09:53 Chemistry Test 06/01/25 09:53 Albumin 3.2 g/dL (3.2-4.8) Calcium Level 8.5 mg/dL (8.7-10.4) L Total Protein 6.9 g/dL (5.7-8.2) LFT Test 06/01/25 09:53 Alanine Aminotransferase (ALT) 17 U/L (7-40) Alkaline Phosphatase 180 U/L (46-116) H Aspartate Amino Transferase (AST) 16 U/L (13-40) Total Bilirubin 0.2 mg/dL (0.2-1.0) HgA1c, TSH Test 06/01/25 09:53 Hemoglobin A1c 11.3 % A1C (<5.7) H Microbiology Microbiology Date/Time Source Procedure Growth Status 05/31/25 13:10 Blood Blood Culture - Preliminary NO GROWTH AFTER 24 HOURS OF INCUBATION. Resulted Labs and/or images reviewed: Labs reviewed by me, Image(s) reviewed by me Assessment/Plan Assessment/Plan Sepsis Secondary to multiple wound infections: Blood cultures wound cultures continue cefepime and vancomycin Uncontrolled diabetes with blood sugar 474 A1c 11.3 sliding scale Acute kidney injury with a BUN creatinine 71 and 5.20, consult by appreciated History of CVA x5 Hypotension History of pacemaker Diabetic Neuropathy vasculopathy Gout Acute lactic acidosis with lactic acid 3.6 Sister Claudia [phone] at bedside Time spent 70 minutes Advanced care planning time 20 minutes Patient is full code. Plan discussed with: Patient Date of Service: Jun 01, 2025 Billing Provider: VIVI BARROS MD Common Visit Codes: [id number] CARE 30-74 MIN VIVI BARROS MD Jun 01, 2025 13:29
--- NOTE | 2025-06-01 16:33 | DVHINCON2 ---
Date of service: Jun 01, [address] lane Reason for Consultation RUBEN History of Present Illness 55-year-old male past medical history of chronic kidney disease stage 4 with diabetic nephropathy, hypertension, peripheral vascular disease, coronary artery disease, congestive heart failure. Patient is known to me from renal clinic most recently patient was taken off JAIDEN inhibitor due to worsening renal function. Patient presents to the hospital now complaining of a wound on his buttock. He is admitted with a diagnosis of sepsis. Nephrology consulted due to worsening creatinine level Allergies: Coded Allergies: NO KNOWN ALLERGIES (Unverified , 01/14/24) Home Meds Reported Medications Sulfamethoxazole W/Trimethopri (Bactrim Ds Tablet) 1 Tab Tb, 1 TAB PO BID for 14 Days, #28 TAB 0 Refills 06/01/25 Cefaclor (Cefaclor) 250 Mg Cap, 250 MG PO Q8HR for 14 Days, #42 CAP 0 Refills 06/01/25 Furosemide (Furosemide) 40 Mg Tab, 2 TAB PO DAILY, #30 TAB 5 Refills 06/01/25 Finerenone (Kerendia) 10 Mg Tab, 1 TAB PO DAILY 01/15/24 Insulin Degludec (Tresiba Flextouch) 200 Unit/Ml Inj, 54 UNIT SC DAILY 01/15/24 Metoprolol Succinate (Metoprolol Succinate Er) 50 Mg Tab, 50 TAB PO DAILY 01/14/24 Amlodipine Besylate (Amlodipine Besylate) 5 Mg Tab, 1 TAB PO DAILY 01/14/24 Famotidine (PEPCID TABLET) 20 Mg Tb, 1 TAB PO BID 01/14/24 Metolazone (Metolazone) 5 Mg Tab, 1 TAB PO DAILY 01/14/24 Sodium Zirconium Cyclosilicate (Lokelma) 10 Gm Masood, 1 PKT PO DAILY 01/14/24 Oxcarbazepine (OXTELLAR XR) 300 Mg Tab, 300 MG PO BID 01/14/24 Lisinopril (Lisinopril) 40 Mg Tab, 1 TAB PO DAILY 01/14/24 Allopurinol (Allopurinol) 300 Mg Tab, 300 TAB PO BID 01/14/24 Gabapentin (Gabapentin) 300 Mg Cap, 1 CAP PO DAILY 01/14/24 Current Medications Current Medications Medications (Trade) Dose Ordered Sig/Esteban Route PRN Reason Start Time Stop Time Status Last Admin Vancomycin HCl 0 ml @ 0 mls/hr UD IV 05/31/25 19:15 Piperacillin Sod/ Tazobactam Sod 100 ml @ 25 mls/hr Q12HR IV 05/31/25 22:00 Hold Amlodipine Besylate (Norvasc Tablet) 5 mg DAILY PO 06/01/25 10:00 Famotidine (Pepcid Tablet) 20 mg DAILY PO 05/31/25 22:00 06/01/25 10:25 Metolazone (Zaroxolyn) 5 mg DAILY PO 06/01/25 10:00 Metoprolol Succinate (Toprol Xl) 2,500 mg DAILY PO 06/01/25 10:00 06/01/25 10:09 DC Patient Own Medication 1 tab DAILY PO 06/01/25 10:00 06/01/25 13:03 DC Patient Own Medication 300 mg BID PO 05/31/25 22:00 Insulin Glargine (Lantus) 52 units HS SC 05/31/25 22:00 Diagnostic Test (Pha) (Accu-Chek Comfort Curve T) 1 strip ACHS 05/31/25 22:00 06/01/25 11:30 Insulin Human Regular (InsuLIN R) HS SC 05/31/25 22:00 05/31/25 23:31 Insulin Human Regular (InsuLIN R) AC SC 06/01/25 07:00 06/01/25 12:14 Dextrose 50 ml UD PRN IV Blood Sugar LESS THAN 60 05/31/25 19:15 Sodium Chloride (Saline Lock Ns) 10 ml Q8HR IV 05/31/25 22:00 06/01/25 14:13 Docusate Sodium (Colace Capsule) 100 mg BIDPRN PRN PO FOR CONSTIPATION 05/31/25 19:15 Acetaminophen (Tylenol Tablet) 650 mg Q6HP PRN PO PAIN SCALE 1-3 OR TEMP>100.4 05/31/25 19:15 Acetaminophen/ Hydrocodone Bitart ([place] 5/325MG Tab) 1 tab Q4HP PRN PO MODERATE PAIN (4-6 PAIN SCALE) 05/31/25 19:15 Ondansetron HCl (Zofran) 4 mg Q4HP PRN IV NAUSEA / VOMITING 05/31/25 19:15 Metoprolol Succinate (Toprol Xl) 50 mg DAILY PO 06/01/25 10:10 06/01/25 10:35 Family History: Diabetes mellitus G8 MOTHER G8 FATHER, Review of Systems Gluteal wound H&P Exam Vital Signs/I&O Vital Sign Date Time Temp Pulse Resp B/P (MAP) Pulse Ox O2 Delivery O2 Flow Rate FiO2 06/01/25 12:46 98.0 76 17 146/83 (104) 97 98.0 06/01/25 08:00 Room Air* 0 21 Intake and Output 0 05/31/25 06/01/25 19:00 07:00 Intake Total 400 ml Balance 400 ml Intake Oral 200 ml IV Total 200 ml # Voids 5 # Bowel Movements 1 Physical Exam Elderly male Appears older than stated age Not in overt distress Abdomen is soft Trace edema Gluteal wound wrapped in dressing Labs/Diagnostic Data Labs/Diagnostic Data Laboratory Tests Test 06/01/25 11:58 06/01/25 09:53 06/01/25 07:01 05/31/25 23:08 Range/Units POC Glucose 229 H 211 H 474 *H 70-106 mg/dl White Blood Count 11.2 H 4.4-10.8 10^3/uL Red Blood Count 2.88 L 4.5-5.90 10^6/uL Hemoglobin 9.5 L 13.5-17.5 g/dL Hematocrit 28.4 L 41.0-53.0 % Mean Corpuscular Volume 98.6 80.0-100.0 fL Mean Corpuscular Hemoglobin 32.8 H 28.0-32.0 pg Mean Corpuscular Hemoglobin Concent 33.3 32.0-36.0 g/dL Red Cell Distribution Width 14.9 H 11.8-14.3 % Platelet Count 368 140-450 10^3/uL Mean Platelet Volume 8.9 6.9-10.8 fL Neutrophils (%) (Auto) 81.3 H 37.0-80.0 % Lymphocytes (%) (Auto) 10.6 10.0-50.0 % Monocytes (%) (Auto) 6.1 0.0-12.0 % Eosinophils (%) (Auto) 1.3 0.0-7.0 % Basophils (%) (Auto) 0.7 0.0-2.0 % Neutrophils # (Auto) 9.1 H 1.6-8.6 10 ^3/uL Lymphocytes # (Auto) 1.2 0.4-5.4 10 ^3/uL Monocytes # (Auto) 0.7 0-1.3 10 ^3/uL Eosinophils # (Auto) 0.1 0-0.8 10 ^3/uL Basophils # (Auto) 0.1 0-0.2 10 ^3/uL Nucleated Red Blood Cells 0.1 % Sodium Level 134 L 136-145 mmol/L Potassium Level 4.2 3.5-5.1 mmol/L Chloride Level 100 98-107 mmol/L Carbon Dioxide Level 23 20-31 mmol/L Anion Gap 11 5-15 Blood Urea Nitrogen 66 H 9-23 mg/dL Creatinine 4.84 H 0.700-1.30 mg/dL Glomerular Filtration Rate Calc 13 >90 mL/min BUN/Creatinine Ratio 13.6 10.0-20.0 Serum Glucose 191 #H 74-106 mg/dL Hemoglobin A1c 11.3 H <5.7 % A1C Calcium Level 8.5 L 8.7-10.4 mg/dL Total Bilirubin 0.2 0.2-1.0 mg/dL Aspartate Amino Transferase (AST) 16 13-40 U/L Alanine Aminotransferase (ALT) 17 7-40 U/L Alkaline Phosphatase 180 H 46-116 U/L Total Protein 6.9 5.7-8.2 g/dL Albumin 3.2 3.2-4.8 g/dL Test 05/31/25 14:41 05/31/25 12:55 Range/Units Lactic Acid Level 1.9 3.6 *H 0.4-2.0 mmol/L White Blood Count 14.4 H 4.4-10.8 10^3/uL Red Blood Count 2.87 L 4.5-5.90 10^6/uL Hemoglobin 9.2 L 13.5-17.5 g/dL Hematocrit 28.3 L 41.0-53.0 % Mean Corpuscular Volume 98.6 80.0-100.0 fL Mean Corpuscular Hemoglobin 32.2 H 28.0-32.0 pg Mean Corpuscular Hemoglobin Concent 32.7 32.0-36.0 g/dL Red Cell Distribution Width 14.7 H 11.8-14.3 % Platelet Count 414 140-450 10^3/uL Mean Platelet Volume 9.1 6.9-10.8 fL Neutrophils (%) (Auto) 83.6 H 37.0-80.0 % Lymphocytes (%) (Auto) 9.0 L 10.0-50.0 % Monocytes (%) (Auto) 5.6 0.0-12.0 % Eosinophils (%) (Auto) 1.0 0.0-7.0 % Basophils (%) (Auto) 0.8 0.0-2.0 % Neutrophils # (Auto) 12.1 H 1.6-8.6 10 ^3/uL Lymphocytes # (Auto) 1.3 0.4-5.4 10 ^3/uL Monocytes # (Auto) 0.8 0-1.3 10 ^3/uL Eosinophils # (Auto) 0.2 0-0.8 10 ^3/uL Basophils # (Auto) 0.1 0-0.2 10 ^3/uL Nucleated Red Blood Cells 0.1 % Prothrombin Time 11.3 9.3-11.8 sec Prothrombin Time INR 1.07 0.9-1.15 Activated Partial Thromboplast Time 31.6 24.5-34.5 SEC Sodium Level 133 L 136-145 mmol/L Potassium Level 4.7 3.5-5.1 mmol/L Chloride Level 97 L 98-107 mmol/L Carbon Dioxide Level 22 20-31 mmol/L Anion Gap 14 5-15 Blood Urea Nitrogen 71 H 9-23 mg/dL Creatinine 5.20 H 0.700-1.30 mg/dL Glomerular Filtration Rate Calc 12 >90 mL/min BUN/Creatinine Ratio 13.7 10.0-20.0 Serum Glucose 293 H 74-106 mg/dL Calcium Level 8.2 L 8.7-10.4 mg/dL Total Bilirubin < 0.2 L 0.2-1.0 mg/dL Aspartate Amino Transferase (AST) 21 13-40 U/L Alanine Aminotransferase (ALT) 19 7-40 U/L Alkaline Phosphatase 194 H 46-116 U/L C-Reactive Protein High Sensitivity 9.98 H <1.0 mg/dL Total Protein 6.7 5.7-8.2 g/dL Albumin 3.1 L 3.2-4.8 g/dL Assessment 55-year-old male with past medical history of chronic kidney disease stage 4 who presents to the hospital his admitted for sepsis secondary to gluteal wound Acute kidney injury hemodynamically mediated Chronic kidney disease stage 4 in the setting of diabetic. Nephropathy. Dr. Samayoa Anemia due to chronic kidney disease Sepsis secondary to wound infection Uncontrolled diabetes History of peripheral vascular disease History congestive heart failure Clinically at this time patient is not appear overloaded. Patient is status post IV fluids Hold diuretics at this time including holding JAIDEN inhibitors and holding Kerendia. Antibiotic therapy Obtain anemia panel, Epogen No emergent indication for dialysis at this time however I explained to patient that current kidney function has a significant decline from his normal baseline. Avoid contrast studies at this time renal dose all medications including antibiotics Care time spent 55 minutes Plan discussed with: Patient VAISHALI SAMAYOA MD Jun 01, 2025 16:33
[2025-06-01] MEDS: FUROSEMIDE 40 MG TAB PO SCH (17:35)
[2025-06-01] MEDS: EPOETIN ALFA-EPBX 10,000 UNIT/1ML VIAL SC SCH (18:42)
[2025-06-01] MEDS: ACETAMINOPHEN 325 MG TAB PO PRN (21:18)
[2025-06-01] MEDS: OXCARBAZEPINE 450 MG PO SCH (21:19)
[2025-06-02 01:00] VITALS: BP 136/83; PULSE 80; RESP 15; TEMP 98; O2SAT 95
[2025-06-02 05:00] VITALS: BP 125/70; PULSE 85; RESP 15; TEMP 97.5; O2SAT 95
[2025-06-02 06:28] LABS: Hematocrit 27.9 % (41.0-53.0); Hemoglobin 9.4 g/dL (13.5-17.5); Mean Corpuscular Hemoglobin 33.5 pg (28.0-32.0); Mean Corpuscular Volume 98.8 fL (80.0-100.0); Nucleated Red Blood Cells % 0.1 %
--- NOTE | 2025-06-02 06:36 | ECG ---
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
[2025-06-02 06:50] LABS: Alanine Aminotransferase 18 U/L (7-40); Albumin 3.2 g/dL (3.2-4.8); Anion Gap 11 (5-15); BUN/Creatinine Ratio 14.0 (10.0-20.0); Calcium 8.8 mg/dL (8.7-10.4); Carbon Dioxide 23 mmol/L (20-31); Chloride 102 mmol/L (98-107); Potassium 4.3 mmol/L (3.5-5.1); Sodium 136 mmol/L (136-145); Total Protein 7.1 g/dL (5.7-8.2)
[2025-06-02 06:54] LABS: Iron 34.0 ug/dL (65-175); Total Iron Binding Capacity 194.0 ug/dL (250-425)
[2025-06-02 06:55] LABS: Alkaline Phosphatase 187 U/L (46-116); Bilirubin, Total 0.2 mg/dL (0.2-1.0); Blood Urea Nitrogen 71 mg/dL (9-23); Glucose 139 mg/dL (74-106)
[2025-06-02 09:00] VITALS: BP 139/76; PULSE 76; RESP 18; TEMP 97.6; O2SAT 91
[2025-06-02] MEDS: ALLOPURINOL 100 MG TAB PO SCH (09:36)
[2025-06-02] MEDS: GABAPENTIN 300 MG CAP PO SCH (09:38)
[2025-06-02] MEDS ORDERED: OXCARBAZEPINE 300 MG PO SCH (10:00)
--- NOTE | 2025-06-02 10:43 | DVHPN2 ---
Progress Note Date Seen: Jun 02, 2025 Medical Necessity Reason Pt with a Central, PICC or Fol: No Subjective Patient reports: Feels better Objective vital signs Vital Sign Date Time Temp Pulse Resp B/P (MAP) Pulse Ox O2 Delivery O2 Flow Rate FiO2 06/02/25 09:40 139/76 06/02/25 09:39 76 06/02/25 09:00 97.6 18 91 97.6 06/02/25 08:04 Room Air* 0 21 Total Intake and Output 06/01/25 06/01/25 06/02/25 14:59 22:59 06:59 Intake Total 500 ml 300 ml Output Total 500 ml Balance 0 ml 300 ml medications Current Medications Medications Dose Ordered Sig/Esteban Route Start Time Stop Time Status Last Admin Dose Admin Cefepime HCl 50 ml @ 12.5 mls/hr Q24H IV 05/31/25 14:00 06/01/25 14:13 12.5 MLS/HR Vancomycin HCl 0 ml @ 0 mls/hr UD IV 05/31/25 19:15 Piperacillin Sod/ Tazobactam Sod 100 ml @ 25 mls/hr Q12HR IV 05/31/25 22:00 Hold Amlodipine Besylate 5 mg DAILY PO 06/01/25 10:00 Famotidine 20 mg DAILY PO 05/31/25 22:00 06/02/25 09:39 20 MG Insulin Glargine 52 units HS SC 05/31/25 22:00 Diagnostic Test (Pha) 1 strip ACHS 05/31/25 22:00 06/02/25 07:31 1 STRIP Insulin Human Regular HS SC 05/31/25 22:00 06/01/25 21:20 6 UNITS Insulin Human Regular AC SC 06/01/25 07:00 06/02/25 07:32 2 UNITS Dextrose 50 ml UD PRN IV 05/31/25 19:15 Sodium Chloride 10 ml Q8HR IV 05/31/25 22:00 06/01/25 21:20 10 ML Docusate Sodium 100 mg BIDPRN PRN PO 05/31/25 19:15 Acetaminophen 650 mg Q6HP PRN PO 05/31/25 19:15 06/01/25 21:18 650 MG Acetaminophen/ Hydrocodone Bitart 1 tab Q4HP PRN PO 05/31/25 19:15 Ondansetron HCl 4 mg Q4HP PRN IV 05/31/25 19:15 Metoprolol Succinate 50 mg DAILY PO 06/01/25 10:10 06/02/25 09:39 50 MG Gabapentin 300 mg DAILY PO 06/02/25 10:00 06/02/25 09:38 300 MG Furosemide 40 mg BIDD PO 06/01/25 18:00 06/02/25 06:03 40 MG Allopurinol 300 mg DAILY PO 06/02/25 10:00 06/02/25 09:36 300 MG Epoetin Mohan-epbx 4,000 unit MWF@1800 NM 06/01/25 18:00 06/01/25 18:42 4,000 UNIT Patient Own Medication 1 BID PO 06/02/25 10:00 Patient Own Medication 300 mg BID PO 06/02/25 10:00 Examination: GENERAL:Abnormal, CVS:Normal, ABDOMEN:Abnormal, SKIN:Abnormal laboratory and microbiology Laboratory Tests 06/02/25 05:40 Test 06/02/25 05:40 Range/Units Serum Glucose 139 H 74-106 mg/dL Microbiology Date/Time Source Procedure Growth Status 05/31/25 13:10 Blood Blood Culture - Preliminary NO GROWTH AFTER 24 HOURS OF INCUBATION. Resulted Problem List/Assessment/Plan Problem List/Assessment/Plan 55-year-old male with past medical history of chronic kidney disease stage 4 who presents to the hospital his admitted for sepsis secondary to gluteal wound Acute kidney injury hemodynamically mediated Chronic kidney disease stage 4 in the setting of diabetic. Nephropathy. Dr. Samayoa Anemia due to chronic kidney disease Sepsis secondary to wound infection Uncontrolled diabetes History of peripheral vascular disease History congestive heart failure IV bolus saline today Hold diuretics at this time including holding JAIDEN inhibitors and holding Kerendia. Antibiotic therapy not candidate for IV iron, Epogen No emergent indication for dialysis at this time however I explained to patient that current kidney function has a significant decline from his normal baseline. Avoid contrast studies at this time renal dose all medications including antibiotics Plan discussed with: Patient My Orders My Orders Orders - VAISHALI SAMAYOA MD Procedure Category Date Status Time Urinalysis LAB 06/01/25 Logged 11:46 Epoetin Mohan-Epbx PHA 06/01/25 In Process (Retacrit) 18:00 Consistent DIET 06/01/25 Transmitted Carb(Ccho)Diabetes Dinner Dietary Evaluation Review Comments: CCHO-45 Renal Diet with 50 gram protein restriction Expected Outcomes/Goals: less uremic syndrome Total Time (mins): 55 VAISHALI SAMAYOA MD Jun 02, 2025 10:43
[2025-06-02] MEDS: OXCARBAZEPINE 150 MG PO SCH (10:45)
[2025-06-02] MEDS: OXCARBAZEPINE 300 MG PO SCH (10:45)
[2025-06-02] MEDS: SODIUM CHLORIDE 0.9% 500 ML IV ONE (10:45)
--- NOTE | 2025-06-02 11:07 | DVHPN2 ---
Reviewed: Care Plan, H&P, Labs, Medications, Previous Orders, Radiology Changes from previous H/P or p: No Changes Objective Vitals Vital Signs Date Time Temp Pulse Resp B/P (MAP) Pulse Ox O2 Delivery O2 Flow Rate FiO2 06/02/25 09:40 139/76 06/02/25 09:39 76 06/02/25 09:00 97.6 18 91 97.6 06/02/25 08:04 Room Air* 0 21 Intake/Output Intake and Output 06/02/25 07:00 Intake Total 800 ml Output Total 500 ml Balance 300 ml Intake Oral 750 ml IV Total 50 ml Output Urine Total 500 ml # Voids 5 # Bowel Movements 2 Medications Current Medications Medications Dose Ordered Sig/Esteban Route Start Time Stop Time Status Last Admin Dose Admin Cefepime HCl 50 ml @ 12.5 mls/hr Q24H IV 05/31/25 14:00 06/01/25 14:13 12.5 MLS/HR Vancomycin HCl 0 ml @ 0 mls/hr UD IV 05/31/25 19:15 Piperacillin Sod/ Tazobactam Sod 100 ml @ 25 mls/hr Q12HR IV 05/31/25 22:00 Hold Amlodipine Besylate 5 mg DAILY PO 06/01/25 10:00 Famotidine 20 mg DAILY PO 05/31/25 22:00 06/02/25 09:39 20 MG Insulin Glargine 52 units HS SC 05/31/25 22:00 Diagnostic Test (Pha) 1 strip ACHS 05/31/25 22:00 06/02/25 07:31 1 STRIP Insulin Human Regular HS SC 05/31/25 22:00 06/01/25 21:20 6 UNITS Insulin Human Regular AC SC 06/01/25 07:00 06/02/25 07:32 2 UNITS Dextrose 50 ml UD PRN IV 05/31/25 19:15 Sodium Chloride 10 ml Q8HR IV 05/31/25 22:00 06/01/25 21:20 10 ML Docusate Sodium 100 mg BIDPRN PRN PO 05/31/25 19:15 Acetaminophen 650 mg Q6HP PRN PO 05/31/25 19:15 06/01/25 21:18 650 MG Acetaminophen/ Hydrocodone Bitart 1 tab Q4HP PRN PO 05/31/25 19:15 Ondansetron HCl 4 mg Q4HP PRN IV 05/31/25 19:15 Metoprolol Succinate 50 mg DAILY PO 06/01/25 10:10 06/02/25 09:39 50 MG Gabapentin 300 mg DAILY PO 06/02/25 10:00 06/02/25 09:38 300 MG Furosemide 40 mg BIDD PO 06/01/25 18:00 06/02/25 06:03 40 MG Allopurinol 300 mg DAILY PO 06/02/25 10:00 06/02/25 09:36 300 MG Epoetin Mohan-epbx 4,000 unit MWF@1800 CO 06/01/25 18:00 06/01/25 18:42 4,000 UNIT Patient Own Medication 1 BID PO 06/02/25 10:00 06/02/25 10:45 1 Patient Own Medication 300 mg BID PO 06/02/25 10:00 06/02/25 10:45 300 MG Laboratory Results Laboratory Tests 06/02/25 05:40 Chemistry Test 06/02/25 05:40 Albumin 3.2 g/dL (3.2-4.8) Calcium Level 8.8 mg/dL (8.7-10.4) Phosphorus Level 4.6 mg/dL (2.4-5.1) Total Protein 7.1 g/dL (5.7-8.2) LFT Test 06/02/25 05:40 Alanine Aminotransferase (ALT) 18 U/L (7-40) Alkaline Phosphatase 187 U/L (46-116) H Aspartate Amino Transferase (AST) 21 U/L (13-40) Total Bilirubin 0.2 mg/dL (0.2-1.0) Microbiology Microbiology Date/Time Source Procedure Growth Status 05/31/25 13:10 Blood Blood Culture - Preliminary NO GROWTH AFTER 24 HOURS OF INCUBATION. Resulted Labs and/or images reviewed: Labs reviewed by me, Image(s) reviewed by me Assessment/Plan Assessment/Plan Sepsis Secondary to multiple wound infections: Blood cultures, wound cultures pending, continue cefepime and vancomycin Uncontrolled diabetes with blood sugar 474 A1c 11.3 sliding scale Acute kidney injury with BUN creatinine 71 and 5.20, on top of CKD 4 consult by appreciated History of CVA x5 Hypertension History of pacemaker Diabetic Neuropathy vasculopathy Gout Acute lactic acidosis with lactic acid 3.6 Sister Claudia [phone] at bedside Time spent 70 minutes Advanced care planning time 20 minutes Patient is full code. PICC line ordered Plan discussed with: Patient My Orders Orders - VIVI BARROS MD Procedure Category Date Status Time Gabapentin Capsule PHA 06/02/25 In Process (Neurontin Capsule) 10:00 Furosemide Tablet PHA 06/01/25 In Process (Lasix Tablet) 18:00 Allopurinol Tablet PHA 06/02/25 In Process (Zyloprim Tablet) 10:00 Apply Barrier Cream NIXON 06/01/25 In Process 11:27 * Dietary Consult CONS 06/01/25 Transmitted 17:59 Patients Own PHA 06/02/25 In Process Medication 10:00 (Nf) Oxcarbazepine PHA 06/02/25 In Process (Oxtellar Xr) 10:00 Date of Service: Jun 02, 2025 Billing Provider: VIVI BARROS MD Common Visit Codes: [id number] CARE 30-74 MIN VIVI BARROS MD Jun 02, 2025 11:07
[2025-06-02 13:00] VITALS: BP 134/75; PULSE 74; RESP 17; TEMP 97.5; O2SAT 92
[2025-06-02] MEDS: VANCOMYCIN 1GM/250ML KIT 250 ML IV ONE ×2 (13:00→18:18)
[2025-06-02] MEDS ORDERED: VANCOMYCIN 1.5GM/300ML 300 ML IV ONE (13:00)
[2025-06-02 17:00] VITALS: BP 138/89; PULSE 75; RESP 18; TEMP 97.5; O2SAT 98
--- NOTE | 2025-06-02 17:44 | DVH ---
CHEST RADIOGRAPH Indication: picc line placement Technique: Single frontal view of the chest was obtained COMPARISON: XY CHEST PORTABLE on DOS: 05/31/25, XY CHEST PORTABLE on DOS: 02/12/24, XY CHEST XRAY 1 VIEW on DOS: 02/09/24, XY CHEST PORTABLE on DOS: 02/08/24, XY CHEST PORTABLE on DOS: 02/07/24 FINDINGS: Lines and Tubes: Right-sided PICC line is seen with tip in the lower SVC. Lungs: Left lower lobe opacity may reflect atelectasis or pneumonia. Pleura: No effusion. No pneumothorax. Cardiomediastinal contours: Unremarkable Bones: Unremarkable IMPRESSION: 1. Right-sided PICC line is seen with tip in the lower SVC 2. Left lower lobe opacity may reflect atelectasis or pneumonia
[2025-06-02 21:00] VITALS: BP 133/71; PULSE 76; RESP 15; TEMP 97.9; O2SAT 97
[2025-06-02] MEDS: SODIUM CHLOR 0.9% PF (SALINE LOCK) 10ML VIAL/SYR IV SCH (21:55)
[2025-06-03 01:00] VITALS: BP 114/74; PULSE 75; RESP 15; TEMP 97.6; O2SAT 95
[2025-06-03] MEDS: MELATONIN 5 MG TAB PO ONE (01:21)
[2025-06-03 05:00] VITALS: BP 127/68; PULSE 78; RESP 14; TEMP 97; O2SAT 97
[2025-06-03 07:05] LABS: Hematocrit 27.7 % (41.0-53.0); Hemoglobin 9.4 g/dL (13.5-17.5); Mean Corpuscular Hemoglobin 33.3 pg (28.0-32.0); Mean Corpuscular Volume 98.1 fL (80.0-100.0); Nucleated Red Blood Cells % 0.1 %
[2025-06-03 07:39] LABS: Alanine Aminotransferase 17 U/L (7-40); Anion Gap 10 (5-15); BUN/Creatinine Ratio 14.4 (10.0-20.0); Calcium 8.7 mg/dL (8.7-10.4); Carbon Dioxide 21 mmol/L (20-31); Chloride 104 mmol/L (98-107); Potassium 4.3 mmol/L (3.5-5.1); Total Protein 7.0 g/dL (5.7-8.2)
[2025-06-03 07:48] LABS: Albumin 3.2 g/dL (3.2-4.8); Alkaline Phosphatase 177 U/L (46-116); Bilirubin, Total 0.2 mg/dL (0.2-1.0); Blood Urea Nitrogen 67 mg/dL (9-23); Glucose 161 mg/dL (74-106); Sodium 135 mmol/L (136-145)
[2025-06-03 09:00] VITALS: BP 126/71; PULSE 72; RESP 20; TEMP 97.5; O2SAT 98
[2025-06-03] MEDS: FAMOTIDINE 20 MG TAB PO SCH (10:15)
[2025-06-03] MEDS: PIPERACILLIN-TAZOB 3.375GM 100 ML IV SCH (10:17)
--- NOTE | 2025-06-03 11:34 | DVHPN2 ---
Reviewed: Care Plan, H&P, Labs, Medications, Previous Orders, Radiology Changes from previous H/P or p: No Changes Objective Vitals Vital Signs Date Time Temp Pulse Resp B/P (MAP) Pulse Ox O2 Delivery O2 Flow Rate FiO2 06/03/25 10:16 127/71 06/03/25 10:16 72 06/03/25 09:00 97.5 20 98 97.5 06/02/25 20:00 Room Air* 0 21 Intake/Output Intake and Output 06/03/25 07:00 Intake Total 1000 ml Output Total 621 ml Balance 379 ml Intake Oral 750 ml IV Total 250 ml Output Urine Total 620 ml Stool Total 1 ml # Voids 5 Medications Current Medications Medications Dose Ordered Sig/Esteban Route Start Time Stop Time Status Last Admin Dose Admin Vancomycin HCl 0 ml @ 0 mls/hr UD IV 05/31/25 19:15 Amlodipine Besylate 5 mg DAILY PO 06/01/25 10:00 Insulin Glargine 52 units HS SC 05/31/25 22:00 Diagnostic Test (Pha) 1 strip ACHS 05/31/25 22:00 06/03/25 07:02 1 STRIP Insulin Human Regular HS SC 05/31/25 22:00 06/02/25 21:56 4 UNITS Insulin Human Regular AC SC 06/01/25 07:00 06/03/25 07:03 3 UNITS Dextrose 50 ml UD PRN IV 05/31/25 19:15 Sodium Chloride 10 ml Q8HR IV 05/31/25 22:00 06/03/25 07:02 10 ML Docusate Sodium 100 mg BIDPRN PRN PO 05/31/25 19:15 Acetaminophen 650 mg Q6HP PRN PO 05/31/25 19:15 06/01/25 21:18 650 MG Acetaminophen/ Hydrocodone Bitart 1 tab Q4HP PRN PO 05/31/25 19:15 Ondansetron HCl 4 mg Q4HP PRN IV 05/31/25 19:15 Metoprolol Succinate 50 mg DAILY PO 06/01/25 10:10 06/03/25 10:16 50 MG Gabapentin 300 mg DAILY PO 06/02/25 10:00 06/03/25 10:15 300 MG Furosemide 40 mg BIDD PO 06/01/25 18:00 06/03/25 10:16 40 MG Allopurinol 300 mg DAILY PO 06/02/25 10:00 06/03/25 10:18 300 MG Epoetin Mohan-epbx 4,000 unit MWF@1800 SC 06/01/25 18:00 06/01/25 18:42 4,000 UNIT Patient Own Medication 1 BID PO 06/02/25 10:00 06/03/25 10:17 1 Patient Own Medication 300 mg BID PO 06/02/25 10:00 06/03/25 10:18 300 MG Sodium Chloride 10 ml QSHIFT@10,22 IV 06/02/25 22:00 06/03/25 10:18 10 ML Piperacillin Sod/ Tazobactam Sod 100 ml @ 25 mls/hr Q12HR IV 06/03/25 10:00 06/03/25 10:17 25 MLS/HR Famotidine 10 mg DAILY PO 06/03/25 10:10 06/03/25 10:15 10 MG Laboratory Results Laboratory Tests 06/03/25 06:17 Chemistry Test 06/03/25 06:17 Albumin 3.2 g/dL (3.2-4.8) Calcium Level 8.7 mg/dL (8.7-10.4) Total Protein 7.0 g/dL (5.7-8.2) LFT Test 06/03/25 06:17 Alanine Aminotransferase (ALT) 17 U/L (7-40) Alkaline Phosphatase 177 U/L (46-116) H Aspartate Amino Transferase (AST) 18 U/L (13-40) Total Bilirubin 0.2 mg/dL (0.2-1.0) Microbiology Microbiology Date/Time Source Procedure Growth Status 06/01/25 20:05 Buttock Gram Stain - Final Resulted 06/01/25 20:05 Buttock Wound Culture - Preliminary Resulted 05/31/25 13:10 Blood Blood Culture - Preliminary NO GROWTH AFTER 48 HOURS OF INCUBATION. Resulted Labs and/or images reviewed: Labs reviewed by me, Image(s) reviewed by me Assessment/Plan Assessment/Plan Sepsis Secondary to multiple wound infections: Blood cultures negative, wound cultures negative, continue cefepime and vancomycin Uncontrolled diabetes with blood sugar 474 A1c 11.3 sliding scale Acute kidney injury with BUN creatinine 71 and 5.20, on top of CKD 4 consult by appreciated History of CVA x5 Hypertension History of pacemaker Diabetic Neuropathy vasculopathy Gout Acute lactic acidosis with lactic acid 3.6 Sister Claudia [phone] at bedside Time spent 65 minutes Advanced care planning time 20 minutes Patient is full code. PICC line ordered Patient is [facility] abx Plan discussed with: Patient My Orders Orders - VIVI BARROS MD Procedure Category Date Status Time Consistent DIET 06/02/25 Transmitted Carb(Ccho)Diabetes Lunch Chest Portable XY 06/02/25 Resulted 16:57 Nursing Protocol Picc [facility] 06/02/25 In Process 17:04 Change Dressing Prn [facility] 06/02/25 In Process 17:04 Sodium Chloride Lock PHA 06/02/25 In Process (Saline Lock Ns) 22:00 Do Not Use Picc For [facility] 06/02/25 In Process Blood Cult 17:04 May Draw Blood From [facility] 06/02/25 In Process Picc 17:04 Ok To Use Picc [facility] 06/02/25 In Process 17:04 Change Picc Dressing [facility] 06/02/25 In Process Q7 Days 17:04 Date of Service: Jun 03, 2025 Billing Provider: VIVI BARROS MD Common Visit Codes: [id number] INP/OBS CARE(HIGH) VIVI BARROS MD Jun 03, 2025 11:34
--- NOTE | 2025-06-03 12:45 | DVH ---
Technique: Real-time ultrasound imaging, with color Doppler and compression of the right upper extr emity veins. Indication: right arm swelling Comparison: US RT UPPER DVT on DOS: 01/25/24 Findings: There is normal compressibility and flow augmentation in all of the imaged deep veins. There are no f illing defects. Impression: No evidence of DVT in the right upper extremity.
[2025-06-03 13:00] VITALS: BP 126/80; PULSE 69; RESP 21; TEMP 97.7; O2SAT 98
[2025-06-03 17:00] VITALS: BP 128/84; PULSE 75; RESP 18; TEMP 97.4; O2SAT 97
[2025-06-03] MEDS: PANTOPRAZOLE 40 MG TAB PO SCH (17:58)
--- NOTE | 2025-06-03 18:37 | DVHPN2 ---
Progress Note Date Seen: Jun 03, 2025 Medical Necessity Reason Pt with a Central, PICC or Fol: No Subjective Patient reports: No new complaints, Other Review of Systems: Deferred Objective vital signs Vital Sign Date Time Temp Pulse Resp B/P (MAP) Pulse Ox O2 Delivery O2 Flow Rate FiO2 06/03/25 17:59 128/84 06/03/25 17:00 97.4 75 18 97 97.4 06/03/25 07:30 Room Air* 0 21 Total Intake and Output 06/02/25 06/02/25 06/03/25 15:00 23:00 07:00 Intake Total 700 ml 300 ml Output Total 621 ml Balance 79 ml 300 ml medications Current Medications Medications Dose Ordered Sig/Esteban Route Start Time Stop Time Status Last Admin Dose Admin Vancomycin HCl 0 ml @ 0 mls/hr UD IV 05/31/25 19:15 Amlodipine Besylate 5 mg DAILY PO 06/01/25 10:00 Insulin Glargine 52 units HS SC 05/31/25 22:00 Diagnostic Test (Pha) 1 strip ACHS 05/31/25 22:00 06/03/25 18:00 1 STRIP Insulin Human Regular HS SC 05/31/25 22:00 06/02/25 21:56 4 UNITS Insulin Human Regular AC SC 06/01/25 07:00 06/03/25 11:45 9 UNITS Dextrose 50 ml UD PRN IV 05/31/25 19:15 Sodium Chloride 10 ml Q8HR IV 05/31/25 22:00 06/03/25 12:44 10 ML Docusate Sodium 100 mg BIDPRN PRN PO 05/31/25 19:15 Acetaminophen 650 mg Q6HP PRN PO 05/31/25 19:15 06/03/25 12:44 650 MG Acetaminophen/ Hydrocodone Bitart 1 tab Q4HP PRN PO 05/31/25 19:15 Ondansetron HCl 4 mg Q4HP PRN IV 05/31/25 19:15 Metoprolol Succinate 50 mg DAILY PO 06/01/25 10:10 06/03/25 10:16 50 MG Gabapentin 300 mg DAILY PO 06/02/25 10:00 06/03/25 10:15 300 MG Furosemide 40 mg BIDD PO 06/01/25 18:00 06/03/25 17:59 40 MG Allopurinol 300 mg DAILY PO 06/02/25 10:00 06/03/25 10:18 300 MG Epoetin Mohan-epbx 4,000 unit MWF@1800 SC 06/01/25 18:00 06/03/25 18:05 4,000 UNIT Patient Own Medication 1 BID PO 06/02/25 10:00 06/03/25 10:17 1 Patient Own Medication 300 mg BID PO 06/02/25 10:00 06/03/25 10:18 300 MG Sodium Chloride 10 ml QSHIFT@10,22 IV 06/02/25 22:00 06/03/25 10:18 10 ML Piperacillin Sod/ Tazobactam Sod 100 ml @ 25 mls/hr Q12HR IV 06/03/25 10:00 06/03/25 10:17 25 MLS/HR Pantoprazole Sodium 40 mg BID@0600,1700 PO 06/03/25 17:00 06/03/25 17:58 40 MG laboratory and microbiology Laboratory Tests 06/03/25 06:17 Test 06/03/25 06:17 Range/Units Serum Glucose 161 H 74-106 mg/dL Microbiology Date/Time Source Procedure Growth Status 06/01/25 20:05 Buttock Gram Stain - Final Resulted 06/01/25 20:05 Buttock Wound Culture - Preliminary Resulted 05/31/25 13:10 Blood Blood Culture - Preliminary NO GROWTH AFTER 72 HOURS OF INCUBATION. Resulted Problem List/Assessment/Plan Problem List/Assessment/Plan Acute kidney injury hemodynamically mediated Chronic kidney disease stage 4 in the setting of diabetic. Nephropathy. Dr. Constantino Anemia due to chronic kidney disease Sepsis secondary to wound infection Uncontrolled diabetes History of peripheral vascular disease History congestive heart failure Recommendations Currently on Lasix oral b.i.d. Renal function stable No urgent need for [employer] as of now Nonoliguric Plan discussed with: Patient Dietary Evaluation Review Comments: CCHO-45 Renal Diet with 50 gram protein restriction Expected Outcomes/Goals: less uremic syndrome CARLEY JOYA MD Jun 03, 2025 18:37
[2025-06-03 21:00] VITALS: BP 143/89; PULSE 73; RESP 17; TEMP 98.4; O2SAT 96
[2025-06-04] VITALS (7 sets, daily range): BP systolic 124–141; BP diastolic 79–93; PULSE 69–86; RESP 16–20; TEMP 97.3–98; O2SAT 95–96
[2025-06-04] MEDS ORDERED: PANTOPRAZOLE 40 MG TAB PO SCH (06:00)
[2025-06-04 06:48] LABS: Hematocrit 28.5 % (41.0-53.0); Hemoglobin 9.4 g/dL (13.5-17.5); Mean Corpuscular Hemoglobin 32.8 pg (28.0-32.0); Mean Corpuscular Volume 99.2 fL (80.0-100.0); Nucleated Red Blood Cells % 0.1 %
[2025-06-04 07:08] LABS: Alanine Aminotransferase 17 U/L (7-40); Albumin 3.2 g/dL (3.2-4.8); Anion Gap 12 (5-15); BUN/Creatinine Ratio 14.9 (10.0-20.0); Calcium 8.8 mg/dL (8.7-10.4); Carbon Dioxide 22 mmol/L (20-31); Chloride 104 mmol/L (98-107); Potassium 4.3 mmol/L (3.5-5.1); Sodium 138 mmol/L (136-145); Total Protein 6.9 g/dL (5.7-8.2)
[2025-06-04 07:25] LABS: Alkaline Phosphatase 171 U/L (46-116); Bilirubin, Total 0.3 mg/dL (0.2-1.0); Blood Urea Nitrogen 66 mg/dL (9-23); Glucose 132 mg/dL (74-106)
--- NOTE | 2025-06-04 09:59 | DVHPN2 ---
Reviewed: Care Plan, H&P, Labs, Medications, Previous Orders, Radiology Changes from previous H/P or p: No Changes Objective Vitals Vital Signs Date Time Temp Pulse Resp B/P (MAP) Pulse Ox O2 Delivery O2 Flow Rate FiO2 06/04/25 09:31 78 140/82 06/04/25 08:00 18 96 Room Air* 0 21 06/04/25 05:00 98.0 98.0 Intake/Output Intake and Output 06/04/25 07:00 Intake Total 1120 ml Output Total 1000 ml Balance 120 ml Intake Oral 920 ml IV Total 200 ml Output Urine Total 1000 ml # Voids 2 Medications Current Medications Medications Dose Ordered Sig/Esteban Route Start Time Stop Time Status Last Admin Dose Admin Vancomycin HCl 0 ml @ 0 mls/hr UD IV 05/31/25 19:15 Amlodipine Besylate 5 mg DAILY PO 06/01/25 10:00 06/04/25 09:30 5 MG Insulin Glargine 52 units HS SC 05/31/25 22:00 Diagnostic Test (Pha) 1 strip ACHS 05/31/25 22:00 06/04/25 06:02 1 STRIP Insulin Human Regular HS SC 05/31/25 22:00 06/03/25 20:58 3 UNITS Insulin Human Regular AC SC 06/01/25 07:00 06/04/25 06:08 2 UNITS Dextrose 50 ml UD PRN IV 05/31/25 19:15 Sodium Chloride 10 ml Q8HR IV 05/31/25 22:00 06/04/25 06:02 10 ML Docusate Sodium 100 mg BIDPRN PRN PO 05/31/25 19:15 Acetaminophen 650 mg Q6HP PRN PO 05/31/25 19:15 06/03/25 12:44 650 MG Acetaminophen/ Hydrocodone Bitart 1 tab Q4HP PRN PO 05/31/25 19:15 Ondansetron HCl 4 mg Q4HP PRN IV 05/31/25 19:15 Metoprolol Succinate 50 mg DAILY PO 06/01/25 10:10 06/04/25 09:31 50 MG Gabapentin 300 mg DAILY PO 06/02/25 10:00 06/04/25 09:30 300 MG Furosemide 40 mg BIDD PO 06/01/25 18:00 06/03/25 17:59 40 MG Allopurinol 300 mg DAILY PO 06/02/25 10:00 06/04/25 09:30 300 MG Epoetin Mohan-epbx 4,000 unit MWF@1800 SC 06/01/25 18:00 06/03/25 18:05 4,000 UNIT Patient Own Medication 1 BID PO 06/02/25 10:00 06/04/25 09:29 1 Patient Own Medication 300 mg BID PO 06/02/25 10:00 06/04/25 09:29 300 MG Sodium Chloride 10 ml QSHIFT@10,22 IV 06/02/25 22:00 06/03/25 20:55 10 ML Piperacillin Sod/ Tazobactam Sod 100 ml @ 25 mls/hr Q12HR IV 06/03/25 10:00 06/04/25 09:28 25 MLS/HR Pantoprazole Sodium 40 mg BID@0600,1700 PO 06/03/25 17:00 06/04/25 06:01 40 MG Laboratory Results Laboratory Tests 06/04/25 06:15 Chemistry Test 06/04/25 06:15 Albumin 3.2 g/dL (3.2-4.8) Calcium Level 8.8 mg/dL (8.7-10.4) Total Protein 6.9 g/dL (5.7-8.2) LFT Test 06/04/25 06:15 Alanine Aminotransferase (ALT) 17 U/L (7-40) Alkaline Phosphatase 171 U/L (46-116) H Aspartate Amino Transferase (AST) 17 U/L (13-40) Total Bilirubin 0.3 mg/dL (0.2-1.0) Microbiology Microbiology Date/Time Source Procedure Growth Status 06/01/25 20:05 Buttock Gram Stain - Final Resulted 06/01/25 20:05 Buttock Wound Culture - Preliminary Resulted 05/31/25 13:10 Blood Blood Culture - Preliminary NO GROWTH AFTER 72 HOURS OF INCUBATION. Resulted Labs and/or images reviewed: Labs reviewed by me, Image(s) reviewed by me Assessment/Plan Assessment/Plan Sepsis Secondary to multiple wound infections: Blood cultures negative, wound cultures negative, continue cefepime and vancomycin Right buttock ulcer, right heel ulcer, left plantar foot ulcer, right knee ulcer, pilonidal sinus Uncontrolled diabetes with blood sugar 474 A1c 11.3 sliding scale Acute kidney injury with BUN creatinine 71 and 5.20, on top of CKD [address]Oladele zambrano, advised conservative management, no need for renal replacement therapy History of CVA x5 Hypertension History of pacemaker Diabetic Neuropathy vasculopathy Gout Acute lactic acidosis with lactic acid 3.6 Sister Claudia [phone] at bedside Sister Jane [phone] who lives at [facility] also at bedside Patient will be discharged to alf facility for rehab and IV antibiotics Plan discussed with: Patient My Orders Orders - VIVI BARROS MD Procedure Category Date Status Time Pt Request For Service PT 06/03/25 Logged 11:35 Rt Upper Dvt US 06/03/25 Resulted 11:50 Pantoprazole Tablet PHA 06/03/25 In Process (Protonix Tablet) 17:00 Date of Service: Jun 04, 2025 Billing Provider: VIVI BARROS MD Common Visit Codes: [id number] INP/OBS CARE(HIGH) VIVI BARROS MD Jun 04, 2025 09:59
--- NOTE | 2025-06-04 10:24 | DVHDS2 ---
Discharge Summary Date of Admission May 31, 2025 at 19:04 Date of Discharge: Jun 04, 2025 Admitting Diagnosis Sepsis secondary to multiple decubitus ulcers Wounds: Multiple decubitus ulcers Labs/Diagnostic Data: Laboratory Results Test 06/04/25 06:15 06/04/25 05:42 06/02/25 05:40 06/01/25 09:53 White Blood Count 8.1 10^3/uL (4.4-10.8) Red Blood Count 2.88 10^6/uL (4.5-5.90) Hemoglobin 9.4 g/dL (13.5-17.5) Hematocrit 28.5 % (41.0-53.0) Mean Corpuscular Volume 99.2 fL (80.0-100.0) Mean Corpuscular Hemoglobin 32.8 pg (28.0-32.0) Mean Corpuscular Hemoglobin Concent 33.0 g/dL (32.0-36.0) Red Cell Distribution Width 15.1 % (11.8-14.3) Platelet Count 368 10^3/uL (140-450) Mean Platelet Volume 8.1 fL (6.9-10.8) Neutrophils (%) (Auto) 70.6 % (37.0-80.0) Lymphocytes (%) (Auto) 19.0 % (10.0-50.0) Monocytes (%) (Auto) 7.2 % (0.0-12.0) Eosinophils (%) (Auto) 2.3 % (0.0-7.0) Basophils (%) (Auto) 0.9 % (0.0-2.0) Neutrophils # (Auto) 5.7 10 ^3/uL (1.6-8.6) Lymphocytes # (Auto) 1.5 10 ^3/uL (0.4-5.4) Monocytes # (Auto) 0.6 10 ^3/uL (0-1.3) Eosinophils # (Auto) 0.2 10 ^3/uL (0-0.8) Basophils # (Auto) 0.1 10 ^3/uL (0-0.2) Nucleated Red Blood Cells 0.1 % Sodium Level 138 mmol/L (136-145) Potassium Level 4.3 mmol/L (3.5-5.1) Chloride Level 104 mmol/L (98-107) Carbon Dioxide Level 22 mmol/L (20-31) Anion Gap 12 (5-15) Blood Urea Nitrogen 66 mg/dL (9-23) Creatinine 4.43 mg/dL (0.700-1.30) Glomerular Filtration Rate Calc 15 mL/min (>90) BUN/Creatinine Ratio 14.9 (10.0-20.0) Serum Glucose 132 mg/dL (74-106) Calcium Level 8.8 mg/dL (8.7-10.4) Total Bilirubin 0.3 mg/dL (0.2-1.0) Aspartate Amino Transferase (AST) 17 U/L (13-40) Alanine Aminotransferase (ALT) 17 U/L (7-40) Alkaline Phosphatase 171 U/L (46-116) Total Protein 6.9 g/dL (5.7-8.2) Albumin 3.2 g/dL (3.2-4.8) Random Vancomycin Level 14.5 ug/mL (5-10) POC Glucose 136 mg/dl (70-106) Phosphorus Level 4.6 mg/dL (2.4-5.1) Iron Level 34 ug/dL (65-175) Total Iron Binding Capacity 194 ug/dL (250-425) Percent Iron Saturation 17.5 % (20-55) Ferritin 1126.2 ng/mL (22-322) Hemoglobin A1c 11.3 % A1C (<5.7) Test 05/31/25 14:41 05/31/25 12:55 Lactic Acid Level 1.9 mmol/L (0.4-2.0) Prothrombin Time 11.3 sec (9.3-11.8) Prothrombin Time INR 1.07 (0.9-1.15) Activated Partial Thromboplast Time 31.6 SEC (24.5-34.5) C-Reactive Protein High Sensitivity 9.98 mg/dL (<1.0) Other Laboratory Tests 06/04/25 06:15 Brief Hx & Hospital Course: 59-year-old male with a history of diabetes CVA x5 hypertension history of pacemaker diabetic neuropathy vasculopathy gout came in and admitted for sepsis secondary to multiple decubitus ulcer infections. Patient has a ulcer in the right buttock right heel left plantar foot right knee and also has a pilonidal sinus. Blood cultures came negative wound cultures also negative treated with the Zosyn and vancomycin uncontrolled diabetes blood sugar 474 A1c 11.3 controlled with insulin aggressive sliding scale. Acute kidney injury with a BUN creatinine 71 and 5.20. Patient has CKD four seen by Nephrology advised no need for renal replacement therapy at the present time Patient received physical therapy has a PICC line. Being discharged to correction facility for IV antibiotics for one month with vancomycin and Zosyn. The planning acceptable to the patient and patient's sister Jane and Judy at the bedside Consults/Reason for consult Nephrology Operations or Procedures None Condition at Discharge: Fair Final Diagnosis/Problems List Sepsis Secondary to multiple wound infections: Blood cultures negative, wound cultures negative, continue Zosyn and vancomycin Right buttock ulcer, right heel ulcer, left plantar foot ulcer, right knee ulcer, pilonidal sinus Uncontrolled diabetes with blood sugar 474 A1c 11.3 sliding scale Acute kidney injury with BUN creatinine 71 and 5.20, on top of CKD 4 consult by appreciated, advised conservative management, no need for renal replacement therapy History of CVA x5 Hypertension History of pacemaker Diabetic Neuropathy vasculopathy Gout Acute lactic acidosis with lactic acid 3.6 Discharge Disposition: Intermediate Facility Discharge Instruct/Medications Diet: Consistent carbohydrate Activity: Light activity Follow Up/Referral: Follow up With the senior care Dr Medications: Vancomycin 1 g IV daily for one month Zosyn 3.375 g IV q.12h for one month Scheduled Allopurinol (Allopurinol), 300 TAB PO BID, (Reported) Amlodipine Besylate (Amlodipine Besylate), 1 TAB PO DAILY, (Reported) Cefaclor (Cefaclor), 250 MG PO Q8HR, (Reported) Famotidine (Pepcid Tablet), 1 TAB PO BID, (Reported) Finerenone (Kerendia), 1 TAB PO DAILY, (Reported) Furosemide (Furosemide), 2 TAB PO DAILY, (Reported) Gabapentin (Gabapentin), 1 CAP PO DAILY, (Reported) Insulin Degludec (Tresiba Flextouch), 54 UNIT SC DAILY, (Reported) Lisinopril (Lisinopril), 1 TAB PO DAILY, (Reported) Metolazone (Metolazone), 1 TAB PO DAILY, (Reported) Metoprolol Succinate (Metoprolol Succinate Er), 50 TAB PO DAILY, (Reported) Oxcarbazepine (Oxtellar Xr), 300 MG PO BID, (Reported) Sodium Zirconium Cyclosilicate (Lokelma), 1 PKT PO DAILY, (Reported) Sulfamethoxazole W/Trimethopri (Bactrim Ds Tablet), 1 TAB PO BID, (Reported) 39 (Time taken for discharge summary 39 minutes) Discharge Statement: "Patient was advised to return to the ER or call 911 if any headaches, dizziness, shortness of breath, chest pain, abdominal pain, bleeding, fevers, or worsening of medical condition. Patient was counseled about treatment plan, medications, possible side effects, patientverbalized understanding. All questions were answered to the best of my ability. This discharge took greater then 30 minutes in planning, reviewing documentation, counseling the patient, and discussing with other team members." ASSESSMENT ASSESSMENT Hospital Course Improved marginally Assessment Sepsis Secondary to multiple wound infections: Blood cultures negative, wound cultures negative, continue Zosyn and vancomycin Right buttock ulcer, right heel ulcer, left plantar foot ulcer, right knee ulcer, pilonidal sinus Uncontrolled diabetes with blood sugar 474 A1c 11.3 sliding scale Acute kidney injury with BUN creatinine 71 and 5.20, on top of CKD [address]Oladele zambrano, advised conservative management, no need for renal replacement therapy History of CVA x5 Hypertension History of pacemaker Diabetic Neuropathy vasculopathy Gout Acute lactic acidosis with lactic acid 3.6 Date of Service: Jun 04, 2025 Billing Provider: VIVI BARROS MD Common Visit Codes: [id number] DISCH DAY >30min VIVI BARROS MD Jun 04, 2025 10:23
--- NOTE | 2025-06-04 14:03 | DVHPN2 ---
Progress Note Date Seen: Jun 04, 2025 Medical Necessity Reason Pt with a Central, PICC or Fol: Yes The following are medically ne: PICC Line Subjective Patient reports: Feels better Objective vital signs Vital Sign Date Time Temp Pulse Resp B/P (MAP) Pulse Ox O2 Delivery O2 Flow Rate FiO2 06/04/25 09:31 78 140/82 06/04/25 09:00 97.6 20 96 97.6 06/04/25 08:00 Room Air* 0 21 Total Intake and Output 06/03/25 06/03/25 06/04/25 15:00 23:00 07:00 Intake Total 100 ml 420 ml 600 ml Output Total 600 ml 400 ml Balance 100 ml -180 ml 200 ml medications Current Medications Medications Dose Ordered Sig/Esteban Route Start Time Stop Time Status Last Admin Dose Admin Vancomycin HCl 0 ml @ 0 mls/hr UD IV 05/31/25 19:15 Amlodipine Besylate 5 mg DAILY PO 06/01/25 10:00 06/04/25 09:30 5 MG Insulin Glargine 52 units HS SC 05/31/25 22:00 Diagnostic Test (Pha) 1 strip ACHS 05/31/25 22:00 06/04/25 11:24 1 STRIP Insulin Human Regular HS SC 05/31/25 22:00 06/03/25 20:58 3 UNITS Insulin Human Regular AC SC 06/01/25 07:00 06/04/25 11:31 3 UNITS Dextrose 50 ml UD PRN IV 05/31/25 19:15 Sodium Chloride 10 ml Q8HR IV 05/31/25 22:00 06/04/25 06:02 10 ML Docusate Sodium 100 mg BIDPRN PRN PO 05/31/25 19:15 Acetaminophen 650 mg Q6HP PRN PO 05/31/25 19:15 06/03/25 12:44 650 MG Acetaminophen/ Hydrocodone Bitart 1 tab Q4HP PRN PO 05/31/25 19:15 Ondansetron HCl 4 mg Q4HP PRN IV 05/31/25 19:15 Metoprolol Succinate 50 mg DAILY PO 06/01/25 10:10 06/04/25 09:31 50 MG Gabapentin 300 mg DAILY PO 06/02/25 10:00 06/04/25 09:30 300 MG Furosemide 40 mg BIDD PO 06/01/25 18:00 06/03/25 17:59 40 MG Allopurinol 300 mg DAILY PO 06/02/25 10:00 06/04/25 09:30 300 MG Epoetin Mohan-epbx 4,000 unit MWF@1800 SC 06/01/25 18:00 06/03/25 18:05 4,000 UNIT Patient Own Medication 1 BID PO 06/02/25 10:00 06/04/25 09:29 1 Patient Own Medication 300 mg BID PO 06/02/25 10:00 06/04/25 09:29 300 MG Sodium Chloride 10 ml QSHIFT@10,22 IV 06/02/25 22:00 06/04/25 10:00 10 ML Piperacillin Sod/ Tazobactam Sod 100 ml @ 25 mls/hr Q12HR IV 06/03/25 10:00 06/04/25 09:28 25 MLS/HR Pantoprazole Sodium 40 mg BID@0600,1700 PO 06/03/25 17:00 06/04/25 06:01 40 MG Examination: GENERAL:Normal, CVS:Normal, MSK:Abnormal, SKIN:Abnormal, NEURO:Abnormal laboratory and microbiology Laboratory Tests 06/04/25 06:15 Test 06/04/25 06:15 Range/Units Serum Glucose 132 H 74-106 mg/dL Microbiology Date/Time Source Procedure Growth Status 06/01/25 20:05 Buttock Gram Stain - Final Resulted 06/01/25 20:05 Buttock Wound Culture - Preliminary Resulted 05/31/25 13:10 Blood Blood Culture - Preliminary NO GROWTH AFTER 72 HOURS OF INCUBATION. Resulted Problem List/Assessment/Plan Problem List/Assessment/Plan 55-year-old male with past medical history of chronic kidney disease stage 4 who presents to the hospital his admitted for sepsis secondary to gluteal wound Acute kidney injury hemodynamically mediated Chronic kidney disease stage 4 in the setting of diabetic. Nephropathy. Dr. Samayoa Anemia due to chronic kidney disease Sepsis secondary to wound infection Uncontrolled diabetes History of peripheral vascular disease History congestive heart failure no emergent HD needs but needs to come to clinic in < 14 days for lab redraw IV vancomycin via picc needs precise renal dosing to prevent vancotoxicity Hold diuretics at this time including holding JAIDEN inhibitors and holding Kerendia. Antibiotic therapy not candidate for IV iron, Epogen Plan discussed with: Patient Dietary Evaluation Review Comments[facility] Diet with 50 gram protein restriction Expected Outcomes/Goals: less uremic syndrome Total Time (mins): 35 VAISHALI SAMAYOA MD Jun 04, 2025 14:03
[2025-06-04] MEDS: MELATONIN 5 MG TAB PO ONE (22:32)
[2025-06-05 01:00] VITALS: BP 128/77; PULSE 70; RESP 19; TEMP 98.8; O2SAT 96
[2025-06-05 05:00] VITALS: BP 133/72; PULSE 75; RESP 18; TEMP 98.3; O2SAT 95
[2025-06-05 08:22] LABS: Hematocrit 28.2 % (41.0-53.0); Hemoglobin 9.2 g/dL (13.5-17.5); Mean Corpuscular Hemoglobin 32.3 pg (28.0-32.0); Mean Corpuscular Volume 98.6 fL (80.0-100.0); Nucleated Red Blood Cells % 0.2 %
[2025-06-05 08:38] LABS: Alanine Aminotransferase 15 U/L (7-40); Anion Gap 12 (5-15); BUN/Creatinine Ratio 14.3 (10.0-20.0); Carbon Dioxide 21 mmol/L (20-31); Chloride 103 mmol/L (98-107); Potassium 4.2 mmol/L (3.5-5.1); Total Protein 6.9 g/dL (5.7-8.2)
[2025-06-05 08:40] LABS: Albumin 3.2 g/dL (3.2-4.8); Alkaline Phosphatase 163 U/L (46-116); Bilirubin, Total 0.3 mg/dL (0.2-1.0); Blood Urea Nitrogen 64 mg/dL (9-23); Calcium 8.6 mg/dL (8.7-10.4); Glucose 124 mg/dL (74-106); Sodium 136 mmol/L (136-145)
[2025-06-05 09:00] VITALS: BP 147/82; PULSE 78; RESP 18; TEMP 97.8; O2SAT 97
--- NOTE | 2025-06-05 10:01 | DVHPN2 ---
Reviewed: Care Plan, H&P, Labs, Medications, Previous Orders, Radiology Changes from previous H/P or p: No Changes Objective Vitals Vital Signs Date Time Temp Pulse Resp B/P (MAP) Pulse Ox O2 Delivery O2 Flow Rate FiO2 06/05/25 08:00 Room Air* 0 21 06/05/25 06:13 133/72 06/05/25 05:00 98.3 75 18 95 98.3 Intake/Output Intake and Output 06/05/25 07:00 Intake Total 920 ml Output Total 650 ml Balance 270 ml Intake Oral 820 ml IV Total 100 ml Output Urine Total 650 ml # Voids 3 # Bowel Movements 1 Medications Current Medications Medications Dose Ordered Sig/Esteban Route Start Time Stop Time Status Last Admin Dose Admin Vancomycin HCl 0 ml @ 0 mls/hr UD IV 05/31/25 19:15 Amlodipine Besylate 5 mg DAILY PO 06/01/25 10:00 06/04/25 09:30 5 MG Insulin Glargine 52 units HS SC 05/31/25 22:00 Diagnostic Test (Pha) 1 strip ACHS 05/31/25 22:00 06/05/25 06:13 1 STRIP Insulin Human Regular HS SC 05/31/25 22:00 06/04/25 22:28 6 UNITS Insulin Human Regular AC SC 06/01/25 07:00 06/05/25 06:08 2 UNITS Dextrose 50 ml UD PRN IV 05/31/25 19:15 Docusate Sodium 100 mg BIDPRN PRN PO 05/31/25 19:15 Acetaminophen 650 mg Q6HP PRN PO 05/31/25 19:15 06/03/25 12:44 650 MG Acetaminophen/ Hydrocodone Bitart 1 tab Q4HP PRN PO 05/31/25 19:15 Ondansetron HCl 4 mg Q4HP PRN IV 05/31/25 19:15 Metoprolol Succinate 50 mg DAILY PO 06/01/25 10:10 06/04/25 09:31 50 MG Gabapentin 300 mg DAILY PO 06/02/25 10:00 06/04/25 09:30 300 MG Furosemide 40 mg BIDD PO 06/01/25 18:00 06/05/25 06:13 40 MG Allopurinol 300 mg DAILY PO 06/02/25 10:00 06/04/25 09:30 300 MG Epoetin Mohan-epbx 4,000 unit MWF@1800 SC 06/01/25 18:00 06/03/25 18:05 4,000 UNIT Patient Own Medication 1 BID PO 06/02/25 10:00 06/04/25 22:00 1 Patient Own Medication 300 mg BID PO 06/02/25 10:00 06/04/25 22:00 300 MG Sodium Chloride 10 ml QSHIFT@10,22 IV 06/02/25 22:00 06/04/25 21:19 10 ML Piperacillin Sod/ Tazobactam Sod 100 ml @ 25 mls/hr Q12HR IV 06/03/25 10:00 06/04/25 22:32 25 MLS/HR Pantoprazole Sodium 40 mg BID@0600,1700 PO 06/03/25 17:00 06/05/25 06:10 40 MG Laboratory Results Laboratory Tests 06/05/25 07:19 Chemistry Test 06/05/25 07:19 Albumin 3.2 g/dL (3.2-4.8) Calcium Level 8.6 mg/dL (8.7-10.4) L Total Protein 6.9 g/dL (5.7-8.2) LFT Test 06/05/25 07:19 Alanine Aminotransferase (ALT) 15 U/L (7-40) Alkaline Phosphatase 163 U/L (46-116) H Aspartate Amino Transferase (AST) 15 U/L (13-40) Total Bilirubin 0.3 mg/dL (0.2-1.0) Microbiology Microbiology Date/Time Source Procedure Growth Status 06/01/25 20:05 Buttock Gram Stain - Final Resulted 06/01/25 20:05 Buttock Wound Culture - Preliminary Resulted 05/31/25 13:10 Blood Blood Culture - Preliminary NO GROWTH AFTER 72 HOURS OF INCUBATION. Resulted Labs and/or images reviewed: Labs reviewed by me, Image(s) reviewed by me Assessment/Plan Assessment/Plan Sepsis Secondary to multiple wound infections: Blood cultures negative, wound cultures negative, continue cefepime and vancomycin Right buttock ulcer, right heel ulcer, left plantar foot ulcer, right knee ulcer, pilonidal sinus Uncontrolled diabetes with blood sugar 474 A1c 11.3 sliding scale Acute kidney injury with BUN creatinine 71 and 5.20, on top of CKD [address]Oladele zambrano, advised conservative management, no need for renal replacement therapy History of CVA x5 Hypertension History of pacemaker Diabetic Neuropathy vasculopathy Gout Acute lactic acidosis with lactic acid 3.6 Sister Claudia [phone] at bedside Sister Jane [phone] who lives at [facility] also at bedside Patient will be discharged to [facility] facility for rehab and IV antibiotics Patient awaiting bed in [facility] acute Plan discussed with: Patient My Orders Orders - VIVI BARROS MD Procedure Category Date Status Time Discharge DISCHARGE 06/04/25 Transmitted 09:59 * Measurement Psychologist CONS 06/04/25 Transmitted Consult Date of Service: Jun 05, 2025 Billing Provider: VIVI BARROS MD Common Visit Codes: [id number] INP/OBS CARE(HIGH) VIVI BARROS MD Jun 05, 2025 10:01
--- NOTE | 2025-06-05 10:05 | DVHPN2 ---
Progress Note Date Seen: Jun 05, 2025 Medical Necessity Reason Pt with a Central, PICC or Fol: Yes The following are medically ne: PICC Line Subjective Patient reports: No new complaints Changes from previous H/P or p: No Changes Objective vital signs Vital Sign Date Time Temp Pulse Resp B/P (MAP) Pulse Ox O2 Delivery O2 Flow Rate FiO2 06/05/25 09:56 78 147/82 06/05/25 08:00 Room Air* 0 21 06/05/25 05:00 98.3 18 95 98.3 Total Intake and Output 06/04/25 06/04/25 06/05/25 15:00 23:00 07:00 Intake Total 420 ml 500 ml Output Total 650 ml Balance 420 ml -150 ml medications Current Medications Medications Dose Ordered Sig/Esteban Route Start Time Stop Time Status Last Admin Dose Admin Vancomycin HCl 0 ml @ 0 mls/hr UD IV 05/31/25 19:15 Amlodipine Besylate 5 mg DAILY PO 06/01/25 10:00 06/05/25 09:56 5 MG Insulin Glargine 52 units HS SC 05/31/25 22:00 Diagnostic Test (Pha) 1 strip ACHS 05/31/25 22:00 06/05/25 06:13 1 STRIP Insulin Human Regular HS SC 05/31/25 22:00 06/04/25 22:28 6 UNITS Insulin Human Regular AC SC 06/01/25 07:00 06/05/25 06:08 2 UNITS Dextrose 50 ml UD PRN IV 05/31/25 19:15 Docusate Sodium 100 mg BIDPRN PRN PO 05/31/25 19:15 Acetaminophen 650 mg Q6HP PRN PO 05/31/25 19:15 06/03/25 12:44 650 MG Acetaminophen/ Hydrocodone Bitart 1 tab Q4HP PRN PO 05/31/25 19:15 Ondansetron HCl 4 mg Q4HP PRN IV 05/31/25 19:15 Metoprolol Succinate 50 mg DAILY PO 06/01/25 10:10 06/05/25 09:56 50 MG Gabapentin 300 mg DAILY PO 06/02/25 10:00 06/05/25 09:52 300 MG Furosemide 40 mg BIDD PO 06/01/25 18:00 06/05/25 06:13 40 MG Allopurinol 300 mg DAILY PO 06/02/25 10:00 06/05/25 09:54 300 MG Epoetin Mohan-epbx 4,000 unit MWF@1800 SC 06/01/25 18:00 06/03/25 18:05 4,000 UNIT Patient Own Medication 1 BID PO 06/02/25 10:00 06/05/25 09:53 1 Patient Own Medication 300 mg BID PO 06/02/25 10:00 06/05/25 09:53 300 MG Sodium Chloride 10 ml QSHIFT@10,22 IV 06/02/25 22:00 06/05/25 10:03 10 ML Piperacillin Sod/ Tazobactam Sod 100 ml @ 25 mls/hr Q12HR IV 06/03/25 10:00 06/05/25 10:02 25 MLS/HR Pantoprazole Sodium 40 mg BID@0600,1700 PO 06/03/25 17:00 06/05/25 06:10 40 MG Examination: GENERAL:Abnormal, CVS:Normal, ABDOMEN:Normal, SKIN:Abnormal, NEURO:Normal laboratory and microbiology Laboratory Tests 06/05/25 07:19 Test 06/05/25 07:19 Range/Units Serum Glucose 124 H 74-106 mg/dL Microbiology Date/Time Source Procedure Growth Status 06/01/25 20:05 Buttock Gram Stain - Final Resulted 06/01/25 20:05 Buttock Wound Culture - Preliminary Resulted 05/31/25 13:10 Blood Blood Culture - Preliminary NO GROWTH AFTER 72 HOURS OF INCUBATION. Resulted Problem List/Assessment/Plan Problem List/Assessment/Plan 55-year-old male with past medical history of chronic kidney disease stage 4 who presents to the hospital his admitted for sepsis secondary to gluteal wound Acute kidney injury hemodynamically mediated Chronic kidney disease stage 4 in the setting of diabetic. Nephropathy. Dr. Samayoa Anemia due to chronic kidney disease Sepsis secondary to wound infection Uncontrolled diabetes History of peripheral vascular disease History congestive heart failure cr today is the same indicating renal function has not improved no emergent HD needs but needs to come to clinic in < 14 days for lab redraw IV vancomycin via picc needs precise renal dosing to prevent vancotoxicity Hold diuretics at this time including holding JAIDEN inhibitors and holding Kerendia. Antibiotic therapy not candidate for IV iron, Epogen Plan discussed with: Patient Dietary Evaluation Review Comments[facility] with 50 gram protein restriction Expected Outcomes/Goals: less uremic syndrome VAISHALI SAMAYOA MD Jun 05, 2025 10:05
[2025-06-05 13:00] VITALS: BP 133/82; PULSE 74; RESP 20; TEMP 97.6; O2SAT 93
== END 2025-06-05 14:50 | DRG 871 ==
LOC: ER 11:44 → OVERFLOW 19:04 → EAST 22:01
PROVIDERS: ADMIT Family Medicine; ATTEND Family Medicine
PROC: 02HV33Z Insertion of Infusion Device into Superior Vena Cava, Percutaneous Approach (ICD-10-PCS; principal; 2025-06-02)
PROC: B548ZZA Ultrasonography of Superior Vena Cava, Guidance (ICD-10-PCS; 2025-06-02)
DX: A41.9 Sepsis, unspecified organism (principal); L89.893 Pressure ulcer of other site, stage 3; E87.21 Acute metabolic acidosis; L97.418 Non-pressure chronic ulcer of right heel and midfoot with other specified severity; L97.428 Non-pressure chronic ulcer of left heel and midfoot with other specified severity; L97.818 Non-pressure chronic ulcer of other part of right lower leg with other specified severity; N18.4 Chronic kidney disease, stage 4 (severe); I13.0 Hypertensive heart and chronic kidney disease with heart failure and stage 1 through stage 4 chronic kidney disease, or unspecified chronic kidney disease; N17.9 Acute kidney failure, unspecified; L03.317 Cellulitis of buttock; D63.1 Anemia in chronic kidney disease; I50.9 Heart failure, unspecified; E11.40 Type 2 diabetes mellitus with diabetic neuropathy, unspecified; E11.22 Type 2 diabetes mellitus with diabetic chronic kidney disease; E11.51 Type 2 diabetes mellitus with diabetic peripheral angiopathy without gangrene; E11.621 Type 2 diabetes mellitus with foot ulcer; M10.9 Gout, unspecified; I95.9 Hypotension, unspecified; I25.10 Atherosclerotic heart disease of native coronary artery without angina pectoris; L89.312 Pressure ulcer of right buttock, stage 2; L05.92 Pilonidal sinus without abscess; Z95.0 Presence of cardiac pacemaker; Z86.73 Personal history of transient ischemic attack (TIA), and cerebral infarction without residual deficits; Z83.3 Family history of diabetes mellitus; Z79.4 Long term (current) use of insulin
CPT/HCPCS: 36415; 36569; 71045; 76937; 80053; 80202; 82728; 82962; 83036; 83540; 83550; 83605; 84100; 85025; 85610; 85730; 86141; 87040; 87205; 93005; 93971; 97110; 97116; 97163; 97530; 99291; 99292; G0378; J1815; J2543

== ENCOUNTER 2025-06-29 09:48 | Emergency (ER) | payer MEDICARE ==
[~2025-06-29] VITALS: Ht 175.3 cm; Wt 80.3 kg
[~2025-06-29 09:48] MED LIST changes: +BACDST PO; +FURO40TA4 PO; +[UNRECOGNIZED DRUG - CODE] PO
[2025-06-29 09:50] VITALS: TEMP 97.9
--- NOTE | 2025-06-29 11:02 | ED.PDOC ---
History of Present Illness HPI Comments 59 year old male presents to the ED with a chief complaint of PICC line removal. Patient states he had PICC line placed on RT upper arm on 06/12/25, came for removal today. Has no further complaints. PMHX CKF, CVA, DM, HTN. Denies chest pain, shortness of breath, dizziness, nausea, vomiting, diarrhea, dysuri a,hematuria. No other symptoms or modifying factors present at this time. Chief Complaint: Tube Replacement Time Seen by MD: 11:00 Primary Care Provider: SUMIT Reviewed Notes: Medications, Allergies Allergies: Coded Allergies: NO KNOWN ALLERGIES (Unverified , 01/14/24) Home Meds Reported Medications Sulfamethoxazole W/Trimethopri (Bactrim Ds Tablet) 1 Tab Tb, 1 TAB PO BID for 14 Days, #28 TAB 0 Refills 06/01/25 Cefaclor (Cefaclor) 250 Mg Cap, 250 MG PO Q8HR for 14 Days, #42 CAP 0 Refills 06/01/25 Furosemide (Furosemide) 40 Mg Tab, 2 TAB PO DAILY, #30 TAB 5 Refills 06/01/25 Finerenone (Kerendia) 10 Mg Tab, 1 TAB PO DAILY 01/15/24 Insulin Degludec (Tresiba Flextouch) 200 Unit/Ml Inj, 54 UNIT SC DAILY 01/15/24 Metoprolol Succinate (Metoprolol Succinate Er) 50 Mg Tab, 50 TAB PO DAILY 01/14/24 Amlodipine Besylate (Amlodipine Besylate) 5 Mg Tab, 1 TAB PO DAILY 01/14/24 Famotidine (PEPCID TABLET) 20 Mg Tb, 1 TAB PO BID 01/14/24 Metolazone (Metolazone) 5 Mg Tab, 1 TAB PO DAILY 01/14/24 Sodium Zirconium Cyclosilicate (Lokelma) 10 Gm Masood, 1 PKT PO DAILY 01/14/24 Oxcarbazepine (OXTELLAR XR) 300 Mg Tab, 300 MG PO BID 01/14/24 Lisinopril (Lisinopril) 40 Mg Tab, 1 TAB PO DAILY 01/14/24 Allopurinol (Allopurinol) 300 Mg Tab, 300 TAB PO BID 01/14/24 Gabapentin (Gabapentin) 300 Mg Cap, 1 CAP PO DAILY 01/14/24 Information Source: Patient Mode of Arrival: Wheelchair Severity: Moderate Timing: Hours Duration: Since onset Prehospital treatment: None Past Medical History PAST MEDICAL HISTORY: CKF, CVA, DM, HTN Surgical History: Pacemaker Family History Family History: Reviewed,noncontributory to illness Social History Smoker: Non-Smoker Alcohol: Denies ETOH Use Drugs: Denies Drug Use Lives In: Home Constitutional: denies: chills, diaphoresis, fatigue, fever, malaise, sweats, weakness, others EENTM: denies: blurred vision, double vision, ear bleeding, ear discharge, ear drainage, ear pain, ear ringing, eye pain, eye redness, hearing loss, mouth pain, mouth swelling, nasal discharge, nose bleeding, nose congestion, nose pain, photophobia, tearing, throat pain, throat swelling, voice changes, others Respiratory: denies: cough, hemoptysis, orthopnea, SOB at rest, shortness of breath, SOB with excertion, stridor, wheezing, others Cardiovascular: denies: chest pain, dizzy spells, diaphoresis, Dyspnea on exertion, edema, irregular heart beat, left arm pain, lightheadedness, palpitations, PND, syncope, others Gastrointestinal: denies: abdomen distended, abdominal pain, blood streaked bowels, constipated, diarrhea, dysphagia, difficulty swallowing, hematemesis, melena, nausea, poor appetite, poor fluid intake, rectal bleeding, rectal pain, vomiting, others Genitourinary: denies: burning, dysuria, flank pain, frequency, hematuria, incontinence, penile discharge, penile sore, pain, testicle pain, testicle swelling, urgency, others Neurological: denies: dizziness, fainting, headache, left sided numbness, left sided weakness, numbness, paresthesia, pre-existing deficit, right sided numbness, right sided weakness, seizure, speech problems, tingling, tremors, we akness, others Musculoskeletal: denies: back pain, gout, joint pain, joint swelling, muscle pain, muscle stiffness, neck pain, others Integumetry: denies: bruises, change in color, change in hair/nails, dryness, laceration, lesions, lumps, rash, wounds, others Allergic/Immunocompromised: denies: Difficulty Healing, Frequent Infections, Hives, Itching, others Hematologic/Lymphatic: denies: anemia, blood clots, easy bleeding, easy bruising, swollen glands, others Endocrine: denies: excessive hunger, excessive sweating, excessive thirst, excessive urination, flushing, intolerance to cold, intolerance to heat, unexplained weight gain, unexplained weight loss, others Psychiatric: denies: anxiety, bipolar disorder, depression, hopeless, panic disorder, schizophrenia, sleepless, suicidal, others All Other Systems: Reviewed and Negative Physical Exam General Appearance: No Apparent Distress, Obese HEENT: Normal ENT Inspection, PERRL/EOMI (Left upper on the need to be removed), Pharynx Normal, TMs Normal Neck: Full Range of Motion, Non-Tender, Normal, Normal Inspection Respiratory: Chest Non-Tender, Lungs Clear, No Accessory Muscle Use, No Respi ratory Distress, Normal Breath Sounds Cardiovascular: No Edema, No JVD, No Murmur, No Gallop, Normal Peripheral Pulses, Regular Rate/Rhythm Breast Exam: Deferred Gastrointestinal: No Organomegaly, Non Tender, No Pulsatile Mass, Normal Bowel Sounds, Soft Genitalia: Deferred Pelvic: Deferred Rectal: Deferred Extremities: No calf tenderness, Normal capillary refill, Normal inspection, Normal range of motion, Non-tender, No pedal edema, Other (picc line upper arm need to be removed) Musculoskeletal : Apperance: Normal Neurologic: Alert, clinical registered nurse II-XII nml as Tested, No Motor Deficits, Normal Affect, Normal Mood, No Sensory Deficits Cerebellar Function: Normal Reflexes: Normal Skin: Dry, Normal Color, Warm, Wounds Peripheral Pulses: 1+ carotid (R), 1+ carotid (L) Lymphatic: No Adenopathy Was a procedure done? Was a procedure done?: No Differential Dx Considerations may include: PICC line removal X-Ray, Labs, Meds, VS Vital Signs Date Time Temp Pulse Resp B/P (MAP) Pulse Ox O2 Delivery O2 Flow Rate FiO2 06/29/25 11:13 85 18 155/89 (111) 98 06/29/25 11:13 89 18 98 Room Air 06/29/25 09:50 97.9 84 19 166/97 96 97.9 X-Ray, Labs, Meds, VS Comment Patient came to the [facility] to remove his PICC line was put on 06/12/2025 and finished his treatment Time of 1ST Reevaluation: 11:30 Reevaluation 1ST: Unchanged Time of 2ND Reevaluation: 11:10 Reevaluation 2ND: Improved Consultation: PCP Patient Education/Counseling: Diagnosis, Treatment, Prognosis, Need For Follow Up Family Education/Counseling: Diagnosis, Treatment, Prognosis, Need For Follow Up, No Family Present SEPSIS Sepsis Screen Date sepsis recognized/suspect: Jun 29, 2025 Time Sepsis recognized/suspect: 0950 Recent Procedure: No On Antibiotic Therapy: No Respiratory Rate >20: No Heart Rate >90: No Temp<36 C (96.8 F) or >38.3 C: No SBP <90 or MAP <65 mmHG: No New Acute Mental Status Change: No Is the patient on CPAP, BIPAP,: No Vital Signs Date Time Temp Pulse Resp B/P (MAP) Pulse Ox O2 Delivery O2 Flow Rate FiO2 06/29/25 11:13 85 18 155/89 (111) 98 06/29/25 11:13 89 18 98 Room Air 06/29/25 09:50 97.9 84 19 166/97 96 97.9 Departure 1 Departure Time of Disposition: 11:10 Impression: Primary Impression: PIC line (peripherally inserted central catheter) removal Disposition: 01 HOME / SELF CARE / HOMELESS Condition: Fair Additional Instructions: With your doctor Discharged With: Self Critical Care Note Critical Care Time?: No Stability Stability form required: No Heart Score Heart Score: Heart Score Response (Comments) Value History N/A 0 EKG N/A 0 Age 45-64 1 Risk Factors 1 or 2 risk factors 1 Troponin N/A 0 Total 2 I personally scribed for ANJELICA VOSS MD ([email or web address]) on 06/29/25 at 11:02. Electronically submitted by Desiree Pace ([email or web address]). ANJELICA VOSS MD Jun 29, 2025 11:02
[2025-06-29 11:13] VITALS: BP 155/89; PULSE 89; RESP 18; O2SAT 98
== END 2025-06-29 11:24 | disposition home or self-care (01) ==
LOC: ER 09:48
DX: Z45.2 Encounter for adjustment and management of vascular access device (principal); E11.9 Type 2 diabetes mellitus without complications; I10 Essential (primary) hypertension; Z79.899 Other long term (current) drug therapy; Z95.0 Presence of cardiac pacemaker

== ENCOUNTER 2025-07-16 08:20 | Outpatient (CLI) | payer MEDICARE ==
[~2025-07-16] VITALS: Ht 175.3 cm; Wt 113.4 kg
[2025-07-16] MEDS: REGADENOSON 0.4 MG/5 ML SYRG IV ONE ×2 (09:03→10:35)
--- NOTE | 2025-07-20 08:14 | DVHSR ---
APPROVED REPORT Exam: Nuclear Stress Test BMI: 0 Stress Test Details Stress Test: Pharmacologic stress testing performed using 0.4 mg of regadenoson per 5 mL given IV ov er 10 seconds. HR Resting HR: 80 bpmMax Heart Rate (APMHR): 162.480480 bpm Max HR Achieved: 81 bpmTarget HR (85% APMHR): 137.625340 bpm % of APMHR: 50.00 Recovery HR: 80 bpm BP Resting BP: 141/93 mmHg Recovery BP: 138/88 mmHg ECG Resting ECG: paced Clinical Reason for Termination: Completed protocol Nurse Comments Recieved pt. from [facility]. A/Ox4 on RA. Connected to cardiac tech, VS stable. PIV flushes well. Re viewed POC. Pt. verbalized understanding of procedure including risks and side effects, agrees for st ress testing. Lexiscan stress test performed per protocol. [facility] tech administered Cardiolite. Pt. tolerated well . Pt. stable, no change on exam. VS returned to baseline. Transferred to [facility] via wheelchair w/ te ch. Stress ECG Conclusion lvef 29% severe dilated CHF infarcted inferior wall no severe ischemia NM EXAM: Myocardial Perfusion REST/STRESS Imaging Protocol: Rest Tc-99m/Stress Tc-99m 1 day Resting Data Rest SPECT myocardial perfusion imaging was performed in supine position 60 minutes following the int ravenous injection of 11.2 mCi of Tc-99m Sestamibi. Time of rest injection: 08:56 Date: 07/16/2025 Time of rest imagin:56 Date: 07/16/2025 Administration Route: IV Administration Site: Right Hand Pharmacologic Stress Pharmacologic stress test was performed by injecting Regadenoson 0.4 mg IV push followed by the intra venous injection of 32.1 mCi of Tc-99m Sestamibi. Time of stress injection: 10:30 Date: 07/16/2025 Time of stress imagin:30 Date: 07/16/2025 Administration Route: IV Administration Site: Right Hand Gated Stress SPECT was performed 60 minutes after stress injection. The images were gated to evaluate regional wall motion and calculate left ventricular ejection fracti on. Stress only was performed in the Supine position. Nuclear Conclusion Nuclear Findings: negative for ischemia lvef 29% severe dilated CHF infarcted inferior wall no severe ischemia
== END 2025-07-16 17:00 | disposition home or self-care (01) ==
LOC: XYW 08:20
PROVIDERS: ATTEND Internal Medicine
DX: I50.42 Chronic combined systolic (congestive) and diastolic (congestive) heart failure (principal); I21.9 Acute myocardial infarction, unspecified; R06.02 Shortness of breath
CPT/HCPCS: 78452; 93017; A9500; J2785

== ENCOUNTER 2025-08-16 14:16 | Inpatient (IN) | payer OTHER, MEDICARE ==
[~2025-08-16] VITALS: Ht 175.3 cm; Wt 123.3 kg
[~2025-08-16 14:16] MED LIST changes: +AMLO1TAB21 PO; +GENT0.1C3 TOP; +INSU100I27 SC; +MUPI2OIN2 TOP; +OXCA150T3 PO
[2025-08-16 15:20] LABS: Chloride 107 mmol/L (98-107); Potassium 3.9 mmol/L (3.5-5.1); Sodium 139 mmol/L (136-145)
[2025-08-16 15:21] LABS: Anion Gap 14 (5-15)
[2025-08-16 15:23] LABS: Calcium 8.5 mg/dL (8.7-10.4); Carbon Dioxide 18 mmol/L (20-31)
[2025-08-16 15:26] LABS: BUN/Creatinine Ratio 10.3 (10.0-20.0)
[2025-08-16 15:28] LABS: Hematocrit 38.5 % (41.0-53.0); Hemoglobin 12.4 g/dL (13.5-17.5); Mean Corpuscular Hemoglobin 32.4 pg (28.0-32.0); Mean Corpuscular Volume 100.3 fL (80.0-100.0); Nucleated Red Blood Cells % 0.2 %
--- NOTE | 2025-08-16 15:34 | ED.PDOC ---
GI ASSESSMENT HPI Comments 59 y.o male with PMHx of CKF, CHF, DM, HTN, CVA, presents to the ED via EMS for a chief complaint of diarrhea that started one week ago. Patient reports passing multiple loose stools per day with no blood noted. Additionally, he noted increased swelling with blister formation to bilateral lower extremity and presents with abdominal distention. Patient states gaining significant weight over the past 5-6 months, all noted to his abdomen. He denies any chest pain, SOB, nausea, vomiting, fever, or chills. Chief Complaint: Diarrhea Time Seen by MD: 14:50 Primary Care Provider: [facility]IT Reviewed Notes: Nurses Notes, Medications, Allergies Allergies: Coded Allergies: NO KNOWN ALLERGIES (Unverified , 01/14/24) Home Meds Reported Medications Sulfamethoxazole W/Trimethopri (Bactrim Ds Tablet) 1 Tab Tb, 1 TAB PO BID for 14 Days, #28 TAB 0 Refills 06/01/25 Cefaclor (Cefaclor) 250 Mg Cap, 250 MG PO Q8HR for 14 Days, #42 CAP 0 Refills 06/01/25 Furosemide (Furosemide) 40 Mg Tab, 2 TAB PO DAILY, #30 TAB 5 Refills 06/01/25 Finerenone (Kerendia) 10 Mg Tab, 1 TAB PO DAILY 01/15/24 Insulin Degludec (Tresiba Flextouch) 200 Unit/Ml Inj, 54 UNIT SC DAILY 01/15/24 Metoprolol Succinate (Metoprolol Succinate Er) 50 Mg Tab, 50 TAB PO DAILY 01/14/24 Amlodipine Besylate (Amlodipine Besylate) 5 Mg Tab, 1 TAB PO DAILY 01/14/24 Famotidine (PEPCID TABLET) 20 Mg Tb, 1 TAB PO BID 01/14/24 Metolazone (Metolazone) 5 Mg Tab, 1 TAB PO DAILY 01/14/24 Sodium Zirconium Cyclosilicate (Lokelma) 10 Gm Masood, 1 PKT PO DAILY 01/14/24 Oxcarbazepine (OXTELLAR XR) 300 Mg Tab, 300 MG PO BID 01/14/24 Lisinopril (Lisinopril) 40 Mg Tab, 1 TAB PO DAILY 01/14/24 Allopurinol (Allopurinol) 300 Mg Tab, 300 TAB PO BID 01/14/24 Gabapentin (Gabapentin) 300 Mg Cap, 1 CAP PO DAILY 01/14/24 Information Source: Patient Mode of Arrival: EMS Timing: Weeks (1) Duration: Since onset Quality: None Vomitus: None Stool: Loose Severity: Moderate Recent: None Recent Hx of: None Pain Location: None Modifying Factors: Nothing Associated sign and symptoms: Diarrhea Past Medical History PAST MEDICAL HISTORY: CHF, CKF, CVA, DM, HTN Surgical History: Pacemaker Family History Family History: Reviewed,noncontributory to illness Social History Smoker: Non-Smoker Alcohol: Denies ETOH Use Drugs: Denies Drug Use Lives In: Home Constitutional: denies: chills, diaphoresis, fatigue, fever, malaise, sweats, weakness, others EENTM: denies: blurred vision, double vision, ear bleeding, ear discharge, ear drainage, ear pain, ear ringing, eye pain, eye redness, hearing loss, mouth pain, mouth swelling, nasal discharge, nose bleeding, nose congestion, nose pain, photophobia, tearing, throat pain, throat swelling, voice changes, others Respiratory: denies: cough, hemoptysis, orthopnea, SOB at rest, shortness of breath, SOB with excertion, stridor, wheezing, others Cardiovascular: denies: chest pain, dizzy spells, diaphoresis, Dyspnea on exertion, edema, irregular heart beat, left arm pain, lightheadedness, palpitations, PND, syncope, others Gastrointestinal: reports: abdomen distended, diarrhea; denies: abdominal pain, blood streaked bowels, constipated, dysphagia, difficulty swallowing, h ematemesis, melena, nausea, poor appetite, poor fluid intake, rectal bleeding, rectal pain, vomiting, others Genitourinary: denies: burning, dysuria, flank pain, frequency, hematuria, incontinence, penile discharge, penile sore, pain, testicle pain, testicle swelling, urgency, others Neurological: denies: dizziness, fainting, headache, left sided numbness, left sided weakness, numbness, paresthesia, pre-existing deficit, right sided numbness, right sided weakness, seizure, speech problems, tingling, tremors, weakness, others Musculoskeletal: denies: back pain, gout, joint pain, joint swelling, muscle pain, muscle stiffness, neck pain, others Integumetry: reports: others (lower extremity swelling with blisters ); denies: bruises, change in color, change in hair/nails, dryness, laceration, lesions, lumps, rash, wounds Allergic/Immunocompromised: denies: Difficulty Healing, Frequent Infections, Hives, Itching, others Hematologic/Lymphatic: denies: anemia, blood clots, easy bleeding, easy bruising, swollen glands, others Endocrine: denies: excessive hunger, excessive sweating, excessive thirst, excessive urination, flushing, intolerance to cold, intolerance to heat, unexplained weight gain, unexplained weight loss, others Psychiatric: denies: anxiety, bipolar disorder, depression, hopeless, panic disorder, schizophrenia, sleepless, suicidal, others All Other Systems: Reviewed and Negative Physical Exam General Appearance: Moderate Distress, Obese HEENT: Normal ENT Inspection, Pharynx Normal, TMs Normal Neck: Full Range of Motion, Non-Tender, Normal, Normal Inspection Respiratory: Chest Non-Tender, Lungs Clear, No Accessory Muscle Use, No Respiratory Distress, Normal Breath Sounds Cardiovascular: No Edema, No JVD, No Murmur, No Gallop, Normal Peripheral Pulses, Regular Rate/Rhythm Breast Exam: Deferred Gastrointestinal: No Organomegaly, Non Tender, No Pulsatile Mass, Normal Bowel Sounds, Soft Genitalia: Deferred Pelvic: Deferred Rectal: Deferred Extremities: No calf tenderness, Normal capillary refill, Normal inspection, Normal range of motion, Non-tender, No pedal edema Musculoskeletal : Apperance: Normal Neurologic: Alert, investment recovery technician II-XII nml as Tested, No Motor Deficits, Normal Affect, Normal Mood, No Sensory Deficits Cerebellar Function: NOT DONE Reflexes: NOT DONE Skin: Wounds (Right lower extremity) Peripheral Pulses: 3+ Radial (R), 3+ Radial (L) Lymphatic: No Adenopathy Was a procedure done? Was a procedure done?: No GI differential Dx Differential Diagnosis: Constipation, Diverticular disease, Esophagitis, Gastritis/PUD, Gastroenteritis, Dehydration, Electrolyte Imbalance, Viral X-Ray, Labs, Meds, VS Vital Signs Date Time Temp Pulse Resp B/P (MAP) Pulse Ox O2 Delivery O2 Flow Rate FiO2 08/16/25 16:45 100 18 98 Room Air 08/16/25 16:45 98.1 100 18 149/81 (103) 97 98.1 08/16/25 14:36 97.8 88 18 160/124 96 97.8 08/16/25 14:17 101 Lab Test 08/16/25 15:07 Range/Units White Blood Count 8.8 4.4-10.8 10^3/uL Red Blood Count 3.83 L 4.5-5.90 10^6/uL Hemoglobin 12.4 L 13.5-17.5 g/dL Hematocrit 38.5 L 41.0-53.0 % Mean Corpuscular Volume 100.3 H 80.0-100.0 fL Mean Corpuscular Hemoglobin 32.4 H 28.0-32.0 pg Mean Corpuscular Hemoglobin Concent 32.3 32.0-36.0 g/dL Red Cell Distribution Width 16.3 H 11.8-14.3 % Platelet Count 208 140-450 10^3/uL Mean Platelet Volume 9.6 6.9-10.8 fL Neutrophils (%) (Auto) 87.2 H 37.0-80.0 % Lymphocytes (%) (Auto) 6.7 L 10.0-50.0 % Monocytes (%) (Auto) 5.1 0.0-12.0 % Eosinophils (%) (Auto) 0.6 0.0-7.0 % Basophils (%) (Auto) 0.4 0.0-2.0 % Neutrophils # (Auto) 7.7 1.6-8.6 10 ^3/uL Lymphocytes # (Auto) 0.6 0.4-5.4 10 ^3/uL Monocytes # (Auto) 0.4 0-1.3 10 ^3/uL Eosinophils # (Auto) 0.1 0-0.8 10 ^3/uL Basophils # (Auto) 0 0-0.2 10 ^3/uL Nucleated Red Blood Cells 0.2 % Sodium Level 139 136-145 mmol/L Potassium Level 3.9 3.5-5.1 mmol/L Chloride Level 107 98-107 mmol/L Carbon Dioxide Level 18 L 20-31 mmol/L Anion Gap 14 5-15 Blood Urea Nitrogen 44 H 9-23 mg/dL Creatinine 4.28 H 0.700-1.30 mg/dL Glomerular Filtration Rate Calc 15 >90 mL/min BUN/Creatinine Ratio 10.3 10.0-20.0 Serum Glucose 133 H 74-106 mg/dL Calcium Level 8.5 L 8.7-10.4 mg/dL Patient alert. Complaining of diarrhea. Has a wound in the right lower extremity. Vitals stable. Answering questions. Kidney function elevated. Establish intravenous access. Was given fluids. Possible gastroenteritis. WBC within normal limits. Blood pressure elevated. Continue to monitor. Time of 1ST Reevaluation: 15:27 Reevaluation 1ST: Unchanged Patient Education/Counseling: Diagnosis, Treatment, Prognosis Family Education/Counseling: No Family Present SEPSIS Sepsis Screen Date sepsis recognized/suspect: Aug 16, 2025 Time Sepsis recognized/suspect: 1430 Recent Procedure: No On Antibiotic Therapy: No Respiratory Rate >20: No Heart Rate >90: No Temp<36 C (96.8 F) or >38.3 C: No SBP <90 or MAP <65 mmHG: No New Acute Mental Status Change: No Is the patient on CPAP, BIPAP,: No Physician Orders Electrocardigram (08/16/25 14:21) Vital Signs Date Time Temp Pulse Resp B/P (MAP) Pulse Ox O2 Delivery O2 Flow Rate FiO2 08/16/25 16:45 100 18 98 Room Air 08/16/25 16:45 98.1 100 18 149/81 (103) 97 98.1 08/16/25 14:36 97.8 88 18 160/124 96 97.8 08/16/25 14:17 101 Laboratory Tests Test 08/16/25 15:07 White Blood Count 8.8 10^3/uL (4.4-10.8) Departure 1 Departure Time of Disposition: 16:52 Impression: Primary Impression: Acute tubular necrosis Additional Impressions: Hypertensive urgency CHF (congestive heart failure) Qualified Codes: I50.43 - Acute on chronic combined systolic (congestive) and diastolic (congestive) heart failure Gastroenteritis Disposition: 09 ADMITTED INPATIENT Admit to: Med Surg Condition: Guarded Critical Care Note Critical Care Time?: No Stability Stability form required: No I personally scribed for EMERSON OLIVAREZ MD ([email or web address]) on 08/16/25 at 15:34. Electronically submitted by Leeann Dugan ([facility]). EMERSON OLIVAREZ MD Aug 16, 2025 15:34
[2025-08-16 15:37] LABS: Blood Urea Nitrogen 44 mg/dL (9-23); Glucose 133 mg/dL (74-106)
--- NOTE | 2025-08-16 18:03 | DVH ---
CHEST RADIOGRAPH Indication: sob Technique: Single frontal view of the chest was obtained COMPARISON: XY CHEST PORTABLE on DOS: 06/02/25, XY CHEST PORTABLE on DOS: 05/31/25, XY CHEST PORTABLE on DOS: 02/12/24, XY CHEST XRAY 1 VIEW on DOS: 02/09/24, XY CHEST PORTABLE on DOS: 02/08/24 FINDINGS: Lines and Tubes: Pacemaker/ AICD in the left upper chest with 2 cardiac leads. Lungs: Moderate interstitial pulmonary edema. Pleura: No effusion. No pneumothorax. Cardiomediastinal contours: Cardiomegaly. Bones: Unremarkable IMPRESSION: 1. Cardiomegaly and moderate interstitial pulmonary edema.
[2025-08-16] MEDS: LISINOPRIL 20 MG TAB PO ONE (18:24)
[2025-08-16] MEDS: DIPHENOXYLATE W/ATROPINE 2.5 MG TAB PO ONE (18:24)
--- NOTE | 2025-08-16 18:27 | DVH ---
CLINICAL HISTORY: enteritis TECHNIQUE: CT of the abdomen and pelvis was performed without intravenous contrast. This exam was per formed according to our departmental dose optimization program. Up-to-date CT equipment and radiation dose reduction techniques are utilized as appropriate. CTDI: 16.74+ 0.14 DLP: 1024.25 WID: COMPARISON: None FINDINGS: Lower Thorax: Mild cardiomegaly without pericardial effusion. There are pacer leads terminating in th e right atrial appendage and right ventricle. Moderate coronary artery calcifications most pronounced in the left anterior descending coronary artery. Minimal interlobular septal thickening in the lung bases. Liver and Biliary system: Grossly unremarkable liver. Cholelithiasis. No biliary ductal dilatation. Spleen: Unremarkable. Adrenal Glands and Kidneys: Normal adrenal glands. Small kidneys. No hydronephrosis or nephrolithiasi s. Multifocal bilateral renal cortical scarring. Pancreas and Retroperitoneum: Atrophic pancreas. No retroperitoneal lymphadenopathy. Aorta and Major Vessels: Aortoiliac vessels are normal in caliber with mild calcified atherosclerotic plaque. Bowel, Mesentery and Peritoneal space: Normal caliber small and large bowel. Mild distal colonic dive rticulosis. Normal appendix. There is a laparoscopic adjustable gastric band in place with the reserv oir in the anterior left abdominal wall. Mild 2 moderate ascites and mesenteric venous congestion. No well-formed fluid collection to suggest abscess or free air. There is wall thickening of a left uppe r quadrant small bowel loop on series left upper abdomen on series 602, image 110. Pelvis: Urinary bladder is mildly distended. Prostate and seminal vesicles are grossly unremarkable. Mildly prominent bilateral inguinal lymph nodes. Abdominal wall and Osseous Structures: Severe body wall edema. Small fat containing bilateral inguina l and umbilical hernias. There is a intramedullary nail and interlocking screw fixation visualized ri ght femur. Multilevel lower thoracic and lumbar spondylosis. no destructive osseous lesion. IMPRESSION: 1. Mild CHF/ volume overload, with mild cardiomegaly, minimal interstitial pulmonary edema, mild-to-m oderate ascites, and severe body wall edema. 2. Wall thickening of a left upper quadrant small-bowel loop which could reflect infectious or inflam matory enteritis. 3. Mild distal colonic diverticulosis. 4. Partially imaged calcified coronary artery disease up to moderate in the left anterior descending coronary artery.
[2025-08-16] MEDS: METOPROLOL SUCCINATE XL 50 MG TAB PO ONE (18:34)
[2025-08-16 18:36] VITALS: PULSE 102; RESP 16; O2SAT 95
[2025-08-17] MEDS ORDERED: DEXTROSE (50%) 50ML SYRG IV PRN (00:15)
--- NOTE | 2025-08-17 01:11 | DVHHPRES ---
History of Present Illness Resident Creating Document: EDUARDO MOREL History of Present Illness Patient is a 59-year-old male with past medical history of presented to [facility] ED with complaint of watery diarrhea. Patient reports passing large volumes of loose stools 3 times daily for the past 6 days, without any visible blood. He denies recent travel, poor oral intake, nausea, vomiting, abdominal pain, or fever. He also reports progressive abdominal distention and worsening bilateral lower extremity swelling, more severe on the left leg, with associated blister formation. The patient states he has gained significant weight over the past 6 months, primarily in the abdominal region. He denies chest pain, shortness of breath, fever, chills, nausea, or vomiting. On evaluation in the ED, patient was hypertensive (189/109 mmHg) and tachycardic (pulse 102). Initial significant macrocytic anemia, BUN 44, creatinine 4.28, serum glucose 133. Patient is admitted for further evaluation and management. Past Medical History CHF, CKD stage 4, stroke, type 2 diabetes mellitus, hypertension Past Surgical History Pacemaker Family History: None Smoke: No ALCOHOL: none Drugs: None Review of Systems Review of Systems Eyes: No Pain, No Vision change, No Conjunctivae inflammation, No Eyelid inflammation, No Other, No Redness ENT: No Ear pain, No Ear discharge, No Nose pain, No Nose discharge, No Nose congestion, No Mouth pain, No Mouth swelling, No Throat pain, No Throat swelling, No Other Cardiovascular: No Chest Pain, No Palpitations, No Orthopnea, No Paroxysmal No Dyspnea, No Edema, No Lt Headedness, No Other Respiratory: No Cough, No Dry, No Shortness of breath, No SOB with exertion, No Wheezing, No Hemoptysis, No Pleuritic Pain, No Sputum, No Other Gastrointestinal: Abdominal distension. No Nausea, No Vomiting, No Abdominal Pain, No Diarrhea, No Constipation, No Melena, No Hematochezia, No Other Genitourinary: No Dysuria, No Frequency, No Incontinence, No Hematuria, No Retention, No Other Musculoskeletal: No other, No neck pain, No shoulder pain, No arm pain, No back pain, No hand pain, No leg pain, No foot pain Skin: No Rash, No Lesions, No Jaundice, No Bruising, Other (Lower extremity swelling with blisters) Allergies: Coded Allergies: NO KNOWN ALLERGIES (Unverified , 01/14/24) Medications Current Medications Medications Dose Ordered Sig/Esteban Route Start Time Stop Time Status Last Admin Dose Admin Sodium Chloride 10 ml Q8HR IV 08/17/25 06:00 Ceftriaxone Sodium 50 ml @ 100 mls/hr Q24H IV 08/18/25 01:00 Metronidazole 100 ml @ 100 mls/hr Q8H IV 08/17/25 09:00 Amlodipine Besylate 5 mg DAILY PO 08/17/25 10:00 Diagnostic Test (Pha) 1 strip ACHS 08/17/25 07:00 Insulin Human Regular ACHS SC 08/17/25 07:00 Dextrose 50 ml UD PRN IV 08/17/25 00:15 Famotidine 10 mg DAILY PO 08/17/25 10:00 Metolazone 5 mg DAILY PO 08/17/25 10:00 Patient Own Medication 1 tab DAILY PO 08/17/25 10:00 UNV Patient Own Medication 300 mg BID PO 08/17/25 10:00 UNV Metoprolol Succinate 50 mg DAILY PO 08/17/25 10:00 Lisinopril 40 mg DAILY PO 08/17/25 10:00 Exam Vital Signs Vital Signs Date Time Temp Pulse Resp B/P (MAP) Pulse Ox O2 Delivery O2 Flow Rate FiO2 08/16/25 18:36 102 16 95 Room Air* 0 21 08/16/25 18:35 97.1 189/109 (135) 97.1 Exam General Appearance: Cooperative. Well developed. Well nourished. NAD Head Exam: Normal inspection Neck Exam: Normal inspection. Non-tender. Normal alignment Pulmonary/Respiratory: Chest non-tender. Clear bilateral breath sounds, no crackles, no wheezing. Cardiovascular/Chest: Regular rate and rhythm. No murmurs. No JVD. Peripheral Pulses: 2+ Radial (R). 2+ Radial (L). 2+ Pedal (R). 2+ Pedal (L) Abdominal Exam: Normal bowel sounds. Soft. normal abdomen, no visible veins, Nontender. No hepatospenomegaly. No masses Ankle Exam: Negative ankle edema Lower extremities: Negative lower extremity edema Neuro/Mental Status: A&O x4. Coherent. Thoughts/Psych: Normal thought pattern. Appropriate mood and affect. Good judgement and insight Skin Exam: Normal inspection. Normal color. Warm. Dry Labs/Xrays Labs Test 08/16/25 15:07 Range/Units White Blood Count 8.8 4.4-10.8 10^3/uL Red Blood Count 3.83 L 4.5-5.90 10^6/uL Hemoglobin 12.4 L 13.5-17.5 g/dL Hematocrit 38.5 L 41.0-53.0 % Mean Corpuscular Volume 100.3 H 80.0-100.0 fL Mean Corpuscular Hemoglobin 32.4 H 28.0-32.0 pg Mean Corpuscular Hemoglobin Concent 32.3 32.0-36.0 g/dL Red Cell Distribution Width 16.3 H 11.8-14.3 % Platelet Count 208 140-450 10^3/uL Mean Platelet Volume 9.6 6.9-10.8 fL Neutrophils (%) (Auto) 87.2 H 37.0-80.0 % Lymphocytes (%) (Auto) 6.7 L 10.0-50.0 % Monocytes (%) (Auto) 5.1 0.0-12.0 % Eosinophils (%) (Auto) 0.6 0.0-7.0 % Basophils (%) (Auto) 0.4 0.0-2.0 % Neutrophils # (Auto) 7.7 1.6-8.6 10 ^3/uL Lymphocytes # (Auto) 0.6 0.4-5.4 10 ^3/uL Monocytes # (Auto) 0.4 0-1.3 10 ^3/uL Eosinophils # (Auto) 0.1 0-0.8 10 ^3/uL Basophils # (Auto) 0 0-0.2 10 ^3/uL Nucleated Red Blood Cells 0.2 % Sodium Level 139 136-145 mmol/L Potassium Level 3.9 3.5-5.1 mmol/L Chloride Level 107 98-107 mmol/L Carbon Dioxide Level 18 L 20-31 mmol/L Anion Gap 14 5-15 Blood Urea Nitrogen 44 H 9-23 mg/dL Creatinine 4.28 H 0.700-1.30 mg/dL Glomerular Filtration Rate Calc 15 >90 mL/min BUN/Creatinine Ratio 10.3 10.0-20.0 Serum Glucose 133 H 74-106 mg/dL Calcium Level 8.5 L 8.7-10.4 mg/dL SEPSIS Sepsis Screen Date sepsis recognized/suspect: Aug 16, 2025 Time Sepsis recognized/suspect: 0 Recent Procedure: No On Antibiotic Therapy: No Respiratory Rate >20: No Heart Rate >90: No Temp<36 C (96.8 F) or >38.3 C: No SBP <90 or MAP <65 mmHG: No New Acute Mental Status Change: No Is the patient on CPAP, BIPAP,: No Physician Orders Admit (08/16/25 23:48) Allergies (08/16/25 23:48) Code Status (08/16/25:48) Sodium Chloride Lock (Saline Lock Ns) (08/17/25 06:00) Complete Blood Count (08/17/25 04:00) Condition: Fair (08/16/25 23:48) Clear Liq Diet (08/17/25 Breakfast) Stat Ekg For Chest Pain (08/16/25 23:48) Notify Md Of Changes From Base (08/16/25 23:48) Patient Day Coordinator For 24 Hours (08/16/25 23:48) Emergency Dysrhythmia Protocol (08/16/25 23:48) Rhythm Strips Once Every Shift (08/16/25 23:48) Echo 2d Mode Cardiac Dop (08/17/25 00:04) * Wound Consult (08/17/25 ) Magnesium (08/17/25 00:09) Hepatic Panel (08/17/25 00:09) Hemoglobin A1c (08/17/25 00:09) Stool Bacterial Culture (08/17/25 00:09) Stool Wbc (08/17/25 00:09) Clostridium Difficile Toxin (08/17/25 00:09) Metronidazole 500mg/100ml (Flagyl 500mg/ (08/17/25 09:00) Metronidazole 500mg/100ml (Flagyl 500mg/ (08/17/25 00:15) B-Type Natriuretic Peptide (08/17/25 00:09) Amlodipine Tablet (Norvasc Tablet) (08/17/25 10:00) Glucose Blood (Accu-Chek Comfort Curve T (08/17/25 07:00) Insulin R (Human) (Insulin R) (08/17/25 07:00) Dextrose 50% Syringe (08/17/25 00:15) Drug Screen (08/17/25 00:09) Urinalysis (08/17/25 00:09) Famotidine Tablet (Pepcid Tablet) (08/17/25 10:00) Metolazone (Zaroxolyn) (08/17/25 10:00) (Nf) Oxcarbazepine (Oxtellar Xr) (08/17/25 10:00) Metoprolol Xl Succinate (Toprol Xl) (08/17/25 10:00) Comprehensive Metabolic Panel (08/17/25 04:00) Ceftriaxone 1gm/50ml (Rocephin) (08/18/25 01:00) Lisinopril Tablet (Zestril Tablet) (08/17/25 10:00) Vital Signs Date Time Temp Pulse Resp B/P (MAP) Pulse Ox O2 Delivery O2 Flow Rate FiO2 08/16/25 18:36 102 16 95 Room Air* 0 21 08/16/25 18:35 97.1 102 18 189/109 (135) 95 97.1 08/16/25 18:34 102 189/108 Laboratory Tests Test 08/16/25 15:07 White Blood Count 8.8 10^3/uL (4.4-10.8) Medications Medications Dose Ordered Sig/Esteban Route Start Time Stop Time Status Last Admin Dose Admin Diphenoxylate HCl/ Atropine 5 mg ONCE ONCE PO 08/16/25 17:00 08/16/25 17:01 DC 08/16/25 18:24 5 MG Metoprolol Succinate 50 mg ONCE ONCE PO 08/16/25 18:30 08/16/25 18:31 DC 08/16/25 18:34 50 MG Assessment/Plan Assessment/Plan Acute intractable diarrhea likely due to to infectious or inflammatory enteritis Mild distal colonic diverticulosis CT of the abdomen and pelvis: Mild CHF/ volume overload, with mild cardiomegaly, minimal interstitial pulmonary edema, [id number] ascites, and severe body wall edema. Wall thickening of a left upper quadrant small-bowel loop which could reflect infectious or inflammatory enteritis. Mild distal colonic diverticulosis. C diff pending Stool bacterial culture Hypertensive urgency History of coronary artery disease CHF exacerbation Amlodipine 5 mg p.o. daily metoprolol 50 mg p.o. daily lisinopril [address] of the abdomen and pelvis: Partially imaged calcified coronary artery disease up to moderate in the left anterior descending coronary artery Chest X-ray: Cardiomegaly and moderate interstitial pulmonary edema. BNP Echocardiogram EKG type 2 diabetes mellitus, hyperglycemia, uncontrolled mild sliding scale CKD Stage 4 with possible RUBEN on CKD Diet: Clear liquid Goals of care: Full code, discussed for >26 minutes on 08/17/25 Plan discussed with patient Plan discussed with Dr. Albert Plan discussed with: Patient, Other (sister) My Orders Orders - EDUARDO MOREL Procedure Category Date Status Time Admit ADMIT 08/16/25 Transmitted 23:48 Allergies NIXON 08/16/25 In Process 23:48 Code Status CODE 08/16/25 Transmitted 23:48 Sodium Chloride Lock PHA 08/17/25 In Process (Saline Lock Ns) 06:00 Complete Blood Count LAB 08/17/25 Logged 04:00 Condition: Fair NIXON 08/16/25 In Process 23:48 Clear Liq Diet DIET 08/17/25 Transmitted Breakfast Stat Ekg For Chest NIOXN 08/16/25 In Process Pain 23:48 Notify Of Changes NIXON 08/16/25 In Process From Base 23:48 Patient Day Coordinator For NIXON 08/16/25 In Process 24 Hours 23:48 Emergency Dysrhythmia NIXON 08/16/25 In Process Protocol 23:48 Rhythm Strips Once NIXON 08/16/25 In Process Every Shift 23:48 Echo 2d Mode Cardiac US 08/17/25 Logged DOP 00:04 * Wound Consult CONS 08/17/25 Transmitted Magnesium LAB 08/17/25 Logged 00:09 Hepatic Panel LAB 08/17/25 Logged 00:09 Hemoglobin A1c LAB 08/17/25 Logged 00:09 Stool Bacterial ONESIMO 08/17/25 Logged Culture 00:09 Stool Wbc LAB 08/17/25 Logged 00:09 Clostridium Difficile ONESIMO 08/17/25 Logged Toxin 00:09 Metronidazole PHA 08/17/25 In Process 500mg/100ml (Flagyl 09:00 Metronidazole PHA 08/17/25 In Process 500mg/100ml (Flagyl 00:15 B-Type Natriuretic LAB 08/17/25 Logged Peptide 00:09 Amlodipine Tablet PHA 08/17/25 In Process (Norvasc Tablet) 10:00 Glucose Blood PHA 08/17/25 In Process (Accu-Chek Comfort 07:00 Insulin R (Human) PHA 08/17/25 In Process (Insulin R) 07:00 Dextrose 50% Syringe PHA 08/17/25 In Process 00:15 Drug Screen LAB 08/17/25 Logged 00:09 Urinalysis LAB 08/17/25 Logged 00:09 Famotidine Tablet PHA 08/17/25 In Process (Pepcid Tablet) 10:00 Metolazone (Zaroxolyn) PHA 08/17/25 In Process 10:00 (Nf) Oxcarbazepine PHA 08/17/25 Pending (Oxtellar Xr) 10:00 Metoprolol Xl PHA 08/17/25 In Process Succinate (Toprol Xl) 10:00 Comprehensive LAB 08/17/25 Logged Metabolic Panel 04:00 Ceftriaxone 1gm/50ml PHA 08/18/25 In Process (Rocephin) 01:00 Lisinopril Tablet PHA 08/17/25 In Process (Zestril Tablet) 10:00 Date of Service: Aug 17, 2025 Billing Provider: BRITTANI ALBERT MD,[facility] RESIDENT Aug 17, 2025 01:11
[2025-08-17] MEDS: FUROSEMIDE 40 MG/4 ML VIAL IV ONE (01:43)
[2025-08-17] MEDS: SODIUM CHLOR 0.9% PF (SALINE LOCK) 10ML VIAL/SYR IV SCH (06:10)
[2025-08-17] MEDS: InsuLIN REG 1unit/0.01ml Soln (100units/ml) SC SCH (07:00)
[2025-08-17] MEDS: ACCU-CHEK COMFORT CURVE STRIP VI SCH (07:00)
[2025-08-17 08:34] LABS: Hematocrit 37.0 % (41.0-53.0); Hemoglobin 12.0 g/dL (13.5-17.5); Mean Corpuscular Hemoglobin 32.4 pg (28.0-32.0); Mean Corpuscular Volume 99.5 fL (80.0-100.0); Nucleated Red Blood Cells % 0.1 %
[2025-08-17 08:59] LABS: Alanine Aminotransferase 13 U/L (7-40); Anion Gap 14 (5-15); BUN/Creatinine Ratio 11.9 (10.0-20.0); Bilirubin, Direct 0.3 mg/dL (<0.3); Chloride 106 mmol/L (98-107); Glucose 93 mg/dL (74-106); Magnesium 2.2 mg/dL (1.6-2.6); Potassium 3.9 mmol/L (3.5-5.1); Sodium 139 mmol/L (136-145); Total Protein 6.6 g/dL (5.7-8.2)
[2025-08-17 09:00] LABS: Bilirubin, Total 0.6 mg/dL (0.2-1.0)
[2025-08-17 09:11] LABS: Albumin 3.0 g/dL (3.2-4.8); Alkaline Phosphatase 145 U/L (46-116); Blood Urea Nitrogen 51 mg/dL (9-23); Calcium 8.6 mg/dL (8.7-10.4); Carbon Dioxide 19 mmol/L (20-31)
[2025-08-17] MEDS ORDERED: PATIENTS OWN MEDICATION (Lisinopril 1 TAB) PO SCH (10:00)
[2025-08-17] MEDS: LISINOPRIL 20 MG TAB PO SCH (11:34)
[2025-08-17 11:43] LABS: Urine Protein, UAD 3+ (Negative)
[2025-08-17] MEDS: FAMOTIDINE 20 MG TAB PO SCH (11:52)
[2025-08-17] MEDS: OXCARBAZEPINE 300 MG PO SCH (11:52)
[2025-08-17] MEDS: METOPROLOL SUCCINATE XL 50 MG TAB PO SCH (11:52)
[2025-08-17 12:02] LABS: Amphetamine Screen, Urine Neg (NEGATIVE); Barbiturate Scree,Urine Neg (NEGATIVE); Benzodiazephine Screen, Urine Neg (NEGATIVE); Cannabinoid Screen, Urine Pos (NEGATIVE); Cocaine Screen, Urine Neg (NEGATIVE); Opiate Scree,Urine Neg (NEGATIVE); Phencyclidine Screen, Urine Neg (NEGATIVE)
--- NOTE | 2025-08-17 13:22 | ECG ---
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
--- NOTE | 2025-08-17 18:57 | DVHPNRES ---
Progress Note Date Seen: Aug 17, 2025 Resident Creating Document: CRISTIAN NORIEGA RESIDENT Medical Necessity Reason Pt with a Central, PICC or Fol: No Subjective Review of Systems Patient is a 59-year-old male with past medical history of CHF, CKD stage 4, stroke, type 2 diabetes mellitus, hypertension, [employer] pacemaker presented to [facility] ED with complaint of watery diarrhea since 7 days. He also complains of associated fever, chills, abdominal bloating, confusion. He notes of an associated weight gain for the past few months. The stool. He denies any recent travel, nausea, vomiting or abdominal pain. He complains of worsening bilateral lower extremity swelling with associated with blister formation. He denies any chest pain, shortness of breath. On evaluation in the ED, the patient was hypotensive 189/109 and tachycardic with a heart rate of 102. Previous hospitalization: [employer] pacemaker PMHx:CHF, CKD stage 4, stroke, type 2 diabetes mellitus, hypertension, [employer] pacemaker PSHx: [employer] pacemaker Family history: DM in mother Social history: occasional THC use Allergic history: None General: patient denies fever, fatigue, weaknes, sweating, any recent changes in appetite and weight HEENT: No headaches, visiual changes, hearing loss, tinnitus, nasal congestion and discharge, and sore throat. Cardiovascular: Denies chest pain, palpitations, dyspnea on exertion, orthopnea, or claudication. Respiratory: No cough, and wheezing. Gastrointestinal: Complains of abdominal bloating, Denies nausea, vomiting, dysphagia, odynophagia, heartburn, abdominal pain, diarrhea, constipation, change in stool, or blood in stool. Genitourinary: No dysuria, hematuria, discharge, frequency, urgency, nocturia, incontinence, and urinary retention. Endocrine: No heat or cold intolerance, polydipsia, polyuria, and polyphagia. Neurological: No dizziness, extremity weakness and numbness, tremors, gait disturbance, seizures, and memory impairment. Psychiatric: Denies depression, anxiety,or insomnia. Musculoskeletal: Complains of bilateral lower limb swelling with blisters Skin: No rashes, itching, skin lesion, changes in hair, nail, skin texture and breast. Hematologic/Lymphatic: Denies easy bruising, bleeding tendencies, or lymph node enlargement. Objective vital signs Vital Sign Date Time Temp Pulse Resp B/P (MAP) Pulse Ox O2 Delivery O2 Flow Rate FiO2 08/17/25 16:00 78 08/17/25 15:21 15 133/90 (104) 96 08/17/25 14:20 Room Air* 0 21 08/17/25 13:35 98.1 98.1 Total Intake and Output 08/16/25 08/16/25 08/17/25 15:00 23:00 07:00 Intake Total 50 ml Balance 50 ml medications Current Medications Medications Dose Ordered Sig/Esteban Route Start Time Stop Time Status Last Admin Dose Admin Sodium Chloride 10 ml Q8HR IV 08/17/25 06:00 08/17/25 14:02 10 ML Ceftriaxone Sodium 50 ml @ 100 mls/hr Q24H IV 08/18/25 01:00 Metronidazole 100 ml @ 100 mls/hr Q8H IV 08/17/25 09:00 08/17/25 17:35 100 MLS/HR Diagnostic Test (Pha) 1 strip ACHS 08/17/25 07:00 08/17/25 17:33 1 STRIP Insulin Human Regular ACHS SC 08/17/25 07:00 Dextrose 50 ml UD PRN IV 08/17/25 00:15 Famotidine 10 mg DAILY PO 08/17/25 10:00 08/17/25 11:52 10 MG Metolazone 5 mg DAILY PO 08/17/25 10:00 08/17/25 11:52 5 MG Patient Own Medication 1 tab DAILY PO 08/17/25 10:00 UNV Patient Own Medication 300 mg BID PO 08/17/25 10:00 08/17/25 11:52 300 MG Metoprolol Succinate 50 mg DAILY PO 08/17/25 10:00 08/17/25 11:52 50 MG Lisinopril 40 mg DAILY PO 08/17/25 10:00 Hold Furosemide 20 mg BIDD PO 08/17/25 18:00 Allopurinol 300 mg DAILY PO 08/18/25 22:00 Examination General Appearance: Alert, Oriented X3, Cooperative, No acute distress HEENT: Atraumatic, PERRLA, EOMI, Mucous membrane moist/pink Respiratory: Clear to auscultation, Normal air movement Cardiovascular: Regular rate, Normal S1, Normal S2, No murmurs, no chest wall tenderness Abdominal: Normal bowel sounds, Soft, No tenderness, No hepatospenomegaly, No masses Extremities: Bilateral lower limb nonpitting edema Skin: No rashes, No breakdown, No significant lesion Neuro: Normal gait, Normal speech, Strength at 5/5 X4 ext, Normal tone, Sensation intact, Cranial nerves 3-12 NL, Reflexes 2+ Psych/Mental Status: Mental status NL, Mood NL laboratory and microbiology Laboratory Tests 08/17/25 07:29 Test 08/17/25 07:29 Range/Units Serum Glucose 93 74-106 mg/dL Problem List/Assessment/Plan Problem List/Assessment/Plan Acute intractable diarrhea likely due to to infectious or inflammatory enteritis Mild distal colonic diverticulosis CT of the abdomen and pelvis: Mild CHF/ volume overload, with mild cardiomegaly, minimal interstitial pulmonary edema, [id number] ascites, and severe body wall edema. Wall thickening of a left upper quadrant small-bowel loop which could reflect infectious or inflammatory enteritis. Mild distal colonic diverticulosis. C diff pending Stool bacterial culture Hypertensive urgency History of coronary artery disease CHF exacerbation Cardiology consult Amlodipine 5 mg p.o. daily metoprolol 50 mg p.o. daily lisinopril [address] of the abdomen and pelvis: Partially imaged calcified coronary artery disease up to moderate in the left anterior descending coronary artery Chest X-ray: Cardiomegaly and moderate interstitial pulmonary edema. follow BNP follow Echocardiogram follow EKG Type 2 diabetes mellitus, hyperglycemia, uncontrolled mild sliding scale CKD Stage 4 with possible RUBEN on CKD Nephrology consult H/O stroke outpatient follow up with PCP on discharge type 2 diabetes mellitus Insulin sliding scale, target in-hospital BG 140-180 Essential hypertension Continue home medications Diet: Clear liquid Goals of care: Full code Plan discussed with patient Plan discussed with Dr. Rodriguez Plan discussed with: Patient Plan discussed with: Patient My Orders My Orders Orders - CRISTIAN NORIEGA Procedure Category Date Status Time Complete Blood Count LAB 08/18/25 Verified 04:00 Comprehensive LAB 08/18/25 Verified Metabolic Panel 04:00 Date of Service: Aug 17, 2025 Billing Provider: MARQUIS RODRIGUEZ MD Common Visit Codes: [id number] INP/OBS CARE (HIGH), [id number] INP/OBS CARE(HIGH) CRISTIAN NORIEGA Aug 17, 2025 18:26 MARQUIS RODRIGUEZ MD Aug 18, 2025 10:47
[2025-08-17 20:00] VITALS: PULSE 87; PULSE 96; RESP 18
[2025-08-17] MEDS: FUROSEMIDE 20 MG TAB PO SCH (20:59)
[2025-08-17 21:00] VITALS: BP 144/96; PULSE 96; RESP 17; TEMP 97.6; O2SAT 95
[2025-08-18] VITALS (8 sets, daily range): BP systolic 126–142; BP diastolic 77–98; PULSE 71–81; RESP 18–20; TEMP 97.4–97.8; O2SAT 95–98
[2025-08-18 06:44] LABS: Hematocrit 37.7 % (41.0-53.0); Hemoglobin 12.3 g/dL (13.5-17.5); Mean Corpuscular Hemoglobin 32.2 pg (28.0-32.0); Mean Corpuscular Volume 99.0 fL (80.0-100.0); Nucleated Red Blood Cells % 0.1 %
[2025-08-18 07:02] LABS: Alanine Aminotransferase 10 U/L (7-40); Anion Gap 13 (5-15); BUN/Creatinine Ratio 12.6 (10.0-20.0); Bilirubin, Total 0.5 mg/dL (0.2-1.0); Carbon Dioxide 21 mmol/L (20-31); Chloride 106 mmol/L (98-107); Potassium 4.0 mmol/L (3.5-5.1); Sodium 140 mmol/L (136-145); Total Protein 6.4 g/dL (5.7-8.2)
[2025-08-18 07:16] LABS: Blood Urea Nitrogen 54 mg/dL (9-23); Glucose 68 mg/dL (74-106)
[2025-08-18 07:17] LABS: Albumin 2.9 g/dL (3.2-4.8); Alkaline Phosphatase 126 U/L (46-116); Calcium 8.2 mg/dL (8.7-10.4)
--- NOTE | 2025-08-18 08:48 | DVHPN2 ---
Progress Note Date Seen: Aug 18, 2025 Resident Creating Document: RUDY HASSAN RESDIENT Medical Necessity Reason Pt with a Central, PICC or Fol: No Subjective Review of Systems Patient is a 59-year-old male with past medical history of CHF, CKD stage 4, stroke, type 2 diabetes mellitus, hypertension, [employer] pacemaker presented to [facility] ED with complaint of watery diarrhea since 7 days. He also complains of associated fever, chills, abdominal bloating, confusion. He notes of an associated weight gain for the past few months. The stool. He denies any recent travel, nausea, vomiting or abdominal pain. He complains of worsening bilateral lower extremity swelling with associated with blister formation. He denies any chest pain, shortness of breath. On evaluation in the ED, the patient was hypotensive 189/109 and tachycardic with a heart rate of 102. Previous hospitalization: [employer] pacemaker PMHx:CHF, CKD stage 4, stroke, type 2 diabetes mellitus, hypertension, [employer] pacemaker PSHx: [employer] pacemaker Family history: DM in mother Social history: occasional THC use Allergic history: None General: patient denies fever, fatigue, weaknes, sweating, any recent changes in appetite and weight HEENT: No headaches, visiual changes, hearing loss, tinnitus, nasal congestion and discharge, and sore throat. Cardiovascular: Denies chest pain, palpitations, dyspnea on exertion, orthopnea, or claudication. Respiratory: No cough, and wheezing. Gastrointestinal: Complains of abdominal bloating, Denies nausea, vomiting, dysphagia, odynophagia, heartburn, abdominal pain, diarrhea, constipation, change in stool, or blood in stool. Genitourinary: No dysuria, hematuria, discharge, frequency, urgency, nocturia, incontinence, and urinary retention. Endocrine: No heat or cold intolerance, polydipsia, polyuria, and polyphagia. Neurological: No dizziness, extremity weakness and numbness, tremors, gait disturbance, seizures, and memory impairment. Psychiatric: Denies depression, anxiety,or insomnia. Musculoskeletal: Complains of bilateral lower limb swelling with blisters Skin: No rashes, itching, skin lesion, changes in hair, nail, skin texture and breast. Hematologic/Lymphatic: Denies easy bruising, bleeding tendencies, or lymph node enlargement. Objective vital signs Vital Sign Date Time Temp Pulse Resp B/P (MAP) Pulse Ox O2 Delivery O2 Flow Rate FiO2 08/18/25 08:01 97.8 81 20 132/77 (95) 97 97.8 08/17/25 20:00 Room Air* 0 21 Total Intake and Output 08/17/25 08/17/25 08/18/25 15:00 23:00 07:00 Intake Total 150 ml Balance 150 ml medications Current Medications Medications Dose Ordered Sig/Esteban Route Start Time Stop Time Status Last Admin Dose Admin Sodium Chloride 10 ml Q8HR IV 08/17/25 06:00 08/18/25 06:22 10 ML Ceftriaxone Sodium 50 ml @ 100 mls/hr Q24H IV 08/18/25 01:00 08/18/25 00:41 100 MLS/HR Metronidazole 100 ml @ 100 mls/hr Q8H IV 08/17/25 09:00 08/18/25 00:40 100 MLS/HR Diagnostic Test (Pha) 1 strip ACHS 08/17/25 07:00 08/18/25 06:39 1 STRIP Insulin Human Regular ACHS SC 08/17/25 07:00 08/17/25 22:20 2 UNITS Dextrose 50 ml UD PRN IV 08/17/25 00:15 Famotidine 10 mg DAILY PO 08/17/25 10:00 08/17/25 11:52 10 MG Metolazone 5 mg DAILY PO 08/17/25 10:00 08/17/25 11:52 5 MG Patient Own Medication 1 tab DAILY PO 08/17/25 10:00 UNV Patient Own Medication 300 mg BID PO 08/17/25 10:00 08/17/25 11:52 300 MG Metoprolol Succinate 50 mg DAILY PO 08/17/25 10:00 08/17/25 11:52 50 MG Lisinopril 40 mg DAILY PO 08/17/25 10:00 Hold Furosemide 20 mg BIDD PO 08/17/25 18:00 08/18/25 06:22 20 MG Allopurinol 300 mg DAILY PO 08/18/25 22:00 laboratory and microbiology Laboratory Tests 08/18/25 05:21 Test 08/18/25 05:21 Range/Units Serum Glucose 68 L 74-106 mg/dL Problem List/Assessment/Plan Problem List/Assessment/Plan Acute intractable diarrhea likely due to to infectious or inflammatory enteritis Mild distal colonic diverticulosis CT of the abdomen and pelvis: Mild CHF/ volume overload, with mild cardiomegaly, minimal interstitial pulmonary edema, [id number] ascites, and severe body wall edema. Wall thickening of a left upper quadrant small-bowel loop which could reflect infectious or inflammatory enteritis. Mild distal colonic diverticulosis. C diff pending Stool bacterial culture Hypertensive urgency History of coronary artery disease CHF exacerbation Cardiology consult Amlodipine 5 mg p.o. daily metoprolol 50 mg p.o. daily lisinopril [address] of the abdomen and pelvis: Partially imaged calcified coronary artery disease up to moderate in the left anterior descending coronary artery Chest X-ray: Cardiomegaly and moderate interstitial pulmonary edema. follow BNP follow Echocardiogram follow EKG Type 2 diabetes mellitus, hyperglycemia, uncontrolled mild sliding scale CKD Stage 4 with possible RUBEN on CKD Nephrology consult H/O stroke outpatient follow up with PCP on discharge type 2 diabetes mellitus Insulin sliding scale, target in-hospital BG 140-180 Essential hypertension Continue home medications Diet: Clear liquid Goals of care: Full code Plan discussed with patient Plan discussed with Dr. Rodriguez Plan discussed with: Patient RUDY HASSAN KELLIE Aug 18, 2025 08:48
--- NOTE | 2025-08-18 10:29 | DVH ---
RENAL ULTRASOUND History: ckd Comparison: US KIDNEY on DOS: 01/16/24, CT abdomen from 08/16/2025 Technique: Multiple real-time sonographic images of the kidney and bladder were obtained in conjuncti on with Doppler imaging. Findings: The right kidney is nonvisualized The left kidney measures 10.6 cm and it is overall suboptimally characterized. There is increased ech ogenicity. No definitive hydronephrosis. Bladder volume 46 cc. Ascites fluid present Impression: Overall limited examination. Right kidney nonvisualized. Increased echogenicity left kidney suggesting medical renal disease. Ascites fluid.
[2025-08-18 14:55] LABS: Hematocrit 37.6 % (41.0-53.0); Hemoglobin 12.2 g/dL (13.5-17.5); Mean Corpuscular Hemoglobin 32.5 pg (28.0-32.0); Mean Corpuscular Volume 100.3 fL (80.0-100.0); Nucleated Red Blood Cells % 0.1 %
--- NOTE | 2025-08-18 15:01 | DVHCONRES ---
Date Seen: Aug 18, 2025 Resident Creating Document: RUDY HASSAN RESDIENT History of Present Illness Patient is a 59-year-old male with past medical history of CHF, CKD stage 4, stroke, type 2 diabetes mellitus, hypertension, [employer] pacemaker presented to [facility] ED with complaint of watery diarrhea since 7 days. He also complains of associated fever, chills, abdominal bloating, confusion. He notes of an associated weight gain for the past few months. The stool. He denies any recent travel, nausea, vomiting or abdominal pain. He complains of worsening bilateral lower extremity swelling with associated with blister formation. He denies any chest pain, shortness of breath. On evaluation in the ED, the patient was hypotensive 189/109 and tachycardic with a heart rate of 102. Family History: Cerebrovascular accident (CVA) G8 FATHER, Diabetes mellitus G8 MOTHER G8 FATHER, Allergies: Coded Allergies: NO KNOWN ALLERGIES (Unverified , 01/14/24) Home Meds Reported Medications Gentamicin Sulfate (Gentamicin Sulfate) 0.1 % Cre, 1 APPLIC TOP TID for 30 Days, #30 08/17/25 Amlodipine Besylate (Amlodipine Besylate) 2.5 Mg Tab, 1 TAB PO DAILY for 90 Days, #90 08/17/25 Oxcarbazepine (Trileptal) 150 Mg Tab, 1 TAB PO BID for 90 Days, #180 08/17/25 Insulin Lispro (Admelog Solostar) 100 Unit/Ml Inj, UNITS SC UD for 30 Days, #15 08/17/25 Mupirocin (Pseudomonas Fluores (Mupirocin) 2 % Oin, 1 APPLIC TOP BID for 44 Days, #44 08/17/25 Allopurinol (Allopurinol) 300 Mg Tab, 1 TAB PO DAILY for 90 Days, #90 08/17/25 Furosemide (Furosemide) 40 Mg Tab, 2 TAB PO DAILY for 90 Days, #180 06/01/25 Finerenone (Kerendia) 10 Mg Tab, 1 TAB PO DAILY 01/15/24 Metoprolol Succinate (Metoprolol Succinate Er) 50 Mg Tab, 1 TAB PO DAILY for 90 Days, #90 01/14/24 Famotidine (PEPCID TABLET) 20 Mg Tb, 1 TAB PO BID 01/14/24 Metolazone (Metolazone) 5 Mg Tab, 1 TAB PO DAILY 01/14/24 Sodium Zirconium Cyclosilicate (Lokelma) 10 Gm Masood, 1 PKT PO DAILY for 30 Days, #30 01/14/24 Lisinopril (Lisinopril) 40 Mg Tab, 1 TAB PO DAILY 01/14/24 Gabapentin (Gabapentin) 300 Mg Cap, 1 CAP PO DAILY for 90 Days, #90 01/14/24 Current Medications Current Medications Medications (Trade) Dose Ordered Sig/Esteban Route PRN Reason Start Time Stop Time Status Last Admin Ceftriaxone Sodium 50 ml @ 100 mls/hr Q24H IV 08/18/25 01:00 08/18/25 00:41 Furosemide (Lasix Tablet) 20 mg BIDD PO 08/17/25 18:00 08/18/25 06:22 Allopurinol (Zyloprim Tablet) 300 mg DAILY PO 08/18/25 22:00 Patient Own Medication 300 mg BID PO 08/18/25 22:00 Review of Systems Patient seen and examined at the bedside. Patient is complaining of abdominal pain. Vital Signs Vital Signs Date Time Temp Pulse Resp B/P (MAP) Pulse Ox O2 Delivery O2 Flow Rate FiO2 08/18/25 12:19 97.6 71 18 136/92 (107) 97 97.6 08/18/25 08:00 Room Air* 0 21 Physical Exam General Appearance: Alert, Oriented X3, Cooperative, No acute distress HEENT: Atraumatic, PERRLA, EOMI, Mucous membrane moist/pink Respiratory: Clear to auscultation, Normal air movement Cardiovascular: Regular rate, Normal S1, Normal S2, No murmurs, no chest wall tenderness Abdominal: Mild abdominal tenderness Extremities: Bilateral lower limb pedal edema grade 2, with blister on the lower limb Skin: No rashes, No breakdown, No significant lesion Neuro: Normal gait, Normal speech, Strength at 5/5 X4 ext, Normal tone, Sensation intact, Cranial nerves 3-12 NL, Reflexes 2+ Psych/Mental Status: Mental status NL, Mood NL Labs/Diagnostic Data Labs Test 08/18/25 14:43 08/18/25 11:46 08/18/25 05:21 08/17/25 11:19 Range/Units White Blood Count 8.6 4.4-10.8 10^3/uL Red Blood Count 3.75 L 4.5-5.90 10^6/uL Hemoglobin 12.2 L 13.5-17.5 g/dL Hematocrit 37.6 L 41.0-53.0 % Mean Corpuscular Volume 100.3 H 80.0-100.0 fL Mean Corpuscular Hemoglobin 32.5 H 28.0-32.0 pg Mean Corpuscular Hemoglobin Concent 32.4 32.0-36.0 g/dL Red Cell Distribution Width 16.1 H 11.8-14.3 % Platelet Count 206 140-450 10^3/uL Mean Platelet Volume 9.4 6.9-10.8 fL Neutrophils (%) (Auto) 82.3 H 37.0-80.0 % Lymphocytes (%) (Auto) 8.4 L 10.0-50.0 % Monocytes (%) (Auto) 7.9 0.0-12.0 % Eosinophils (%) (Auto) 0.8 0.0-7.0 % Basophils (%) (Auto) 0.6 0.0-2.0 % Neutrophils # (Auto) 7.1 1.6-8.6 10 ^3/uL Lymphocytes # (Auto) 0.7 0.4-5.4 10 ^3/uL Monocytes # (Auto) 0.7 0-1.3 10 ^3/uL Eosinophils # (Auto) 0.1 0-0.8 10 ^3/uL Basophils # (Auto) 0.1 0-0.2 10 ^3/uL Nucleated Red Blood Cells 0.1 % POC Glucose 110 H 70-106 mg/dl Phosphorus Level 5.0 2.4-5.1 mg/dL Vitamin D 25-Hydroxy 15.5 L 30.0-100 ng/mL Parathyroid Hormone (Intact) 225.1 H 18.4-80.1 pg/mL Urine Color Yellow Yellow Urine Clarity Turbid H Clear Urine pH 6.0 5.0-9.0 Urine Specific Lam[place] 1.022 1.001-1.035 Urine Protein 3+ H Negative Urine Ketones 1+ H Negative Urine Blood 1+ H Negative /uL Urine Nitrite Negative Negative Urine Bilirubin Negative Negative Urine Urobilinogen Normal Negative mg/dL Urine Leukocyte Esterase Negative Negative /uL Urine RBC 2 0 - 3 /hpf Urine Microscopic WBC 6 H 0-3 /HPF Urine Squamous Epithelial Cells Few <5 /hpf Urine Bacteria None seen None Seen /hpf Urine Glucose 2+ H Normal mg/dL Urine Opiates Screen Neg NEGATIVE Urine Fentanyl Screen Neg NEGATIVE Urine Barbiturates Screen Neg NEGATIVE Urine Phencyclidine Screen Neg NEGATIVE Urine Amphetamines Screen Neg NEGATIVE Urine Benzodiazepines Screen Neg NEGATIVE Urine Cocaine Screen Neg NEGATIVE Urine Cannabinoids Screen Pos NEGATIVE Test 08/17/25 07:29 Range/Units Hemoglobin A1c 7.4 H <5.7 % A1C Magnesium Level 2.2 1.6-2.6 mg/dL Direct Bilirubin 0.3 <0.3 mg/dL B-Type Natriuretic Peptide 2569.82 0-100 pg/mL Assessment 59-year-old male with past medical history of CHF, CKD grade 4, diabetes, hypertension, status post pacemaker came to the hospital due to abdominal pain, diarrhea and bloating. Nephrology consulted due to CKD. Assessment: Acute on chronic systolic heart failure Volume overload, likely due to heart failure CKD grade 4 Diabetes type 2 Status post pacemaker Hypertension Possible Gastroenteritis * CT scan shows, bilateral small kidneys * Ultrasound shows increased echogenicity of left kidney Plan/Recommendation (Dr. Constantino) * IV Lasix 40 mg b.i.d. and metolazone 5 mg daily * Restrict fluid intake * Patient has stage IV CKD, consulted regarding requirement of AV fistula and possible dialysis in future * We will follow up with the patient Thank you for giving us the opportunity to take care of your patient. Please call back if you have any questions/concerns. Plan discussed with: Patient, Other (RN) RUDY HASSAN Aug 18, 2025 15:01
[2025-08-18 15:11] LABS: Alanine Aminotransferase 9 U/L (7-40); Albumin 2.9 g/dL (3.2-4.8); Alkaline Phosphatase 120 U/L (46-116); Anion Gap 12 (5-15); BUN/Creatinine Ratio 11.1 (10.0-20.0); Bilirubin, Total 0.5 mg/dL (0.2-1.0); Blood Urea Nitrogen 47 mg/dL (9-23); Calcium 8.2 mg/dL (8.7-10.4); Carbon Dioxide 20 mmol/L (20-31); Chloride 106 mmol/L (98-107); Glucose 103 mg/dL (74-106); Potassium 3.8 mmol/L (3.5-5.1); Sodium 138 mmol/L (136-145); Total Protein 6.3 g/dL (5.7-8.2)
[2025-08-18] MEDS: FUROSEMIDE 40 MG TAB PO SCH (17:08)
--- NOTE | 2025-08-18 17:28 | DVHPNRES ---
Progress Note Date Seen: Aug 18, 2025 Resident Creating Document: CRISTIAN NORIEGA RESIDENT Medical Necessity Reason Pt with a Central, PICC or Fol: No Subjective Review of Systems Patient is a 59-year-old male with past medical history of CHF, CKD stage 4, stroke, type 2 diabetes mellitus, hypertension, [employer] pacemaker presented to [facility] ED with complaint of watery diarrhea since 7 days. He also complains of associated fever, chills, abdominal bloating, confusion. He notes of an associated weight gain for the past few months. The stool. He denies any recent travel, nausea, vomiting or abdominal pain. He complains of worsening bilateral lower extremity swelling with associated with blister formation. He denies any chest pain, shortness of breath. On evaluation in the ED, the patient was hypotensive 189/109 and tachycardic with a heart rate of 102. Previous hospitalization: [facility] [employer] pacemaker PMHx:CHF, CKD stage 4, stroke, type 2 diabetes mellitus, hypertension, [employer] pacemaker PSHx: [employer] pacemaker Family history: DM in mother Social history: occasional THC use Allergic history: None Patient Seen at bedside. No new complaints. Says that the diarrhea has subsided. Nephrology consult pending General: patient denies fever, fatigue, weaknes, sweating, any recent changes in appetite and weight HEENT: No headaches, visiual changes, hearing loss, tinnitus, nasal congestion and discharge, and sore throat. Cardiovascular: Denies chest pain, palpitations, dyspnea on exertion, orthopnea, or claudication. Respiratory: No cough, and wheezing. Gastrointestinal: Complains of abdominal bloating, Denies nausea, vomiting, dysphagia, odynophagia, heartburn, abdominal pain, diarrhea, constipation, change in stool, or blood in stool. Genitourinary: No dysuria, hematuria, discharge, frequency, urgency, nocturia, incontinence, and urinary retention. Endocrine: No heat or cold intolerance, polydipsia, polyuria, and polyphagia. Neurological: No dizziness, extremity weakness and numbness, tremors, gait disturbance, seizures, and memory impairment. Psychiatric: Denies depression, anxiety,or insomnia. Musculoskeletal: Complains of bilateral lower limb swelling with blisters Skin: No rashes, itching, skin lesion, changes in hair, nail, skin texture and breast. Hematologic/Lymphatic: Denies easy bruising, bleeding tendencies, or lymph node enlargement. Objective vital signs Vital Sign Date Time Temp Pulse Resp B/P (MAP) Pulse Ox O2 Delivery O2 Flow Rate FiO2 08/18/25 17:08 141/89 08/18/25 12:19 97.6 71 18 97 97.6 08/18/25 08:00 Room Air* 0 21 Total Intake and Output 08/17/25 08/17/25 08/18/25 15:00 23:00 07:00 Intake Total 150 ml Balance 150 ml medications Current Medications Medications Dose Ordered Sig/Esteban Route Start Time Stop Time Status Last Admin Dose Admin Sodium Chloride 10 ml Q8HR IV 08/17/25 06:00 08/18/25 15:50 10 ML Ceftriaxone Sodium 50 ml @ 100 mls/hr Q24H IV 08/18/25 01:00 08/18/25 00:41 100 MLS/HR Metronidazole 100 ml @ 100 mls/hr Q8H IV 08/17/25 09:00 08/18/25 16:50 100 MLS/HR Diagnostic Test (Pha) 1 strip ACHS 08/17/25 07:00 08/18/25 17:09 1 STRIP Insulin Human Regular ACHS SC 08/17/25 07:00 08/17/25 22:20 2 UNITS Dextrose 50 ml UD PRN IV 08/17/25 00:15 Famotidine 10 mg DAILY PO 08/17/25 10:00 08/18/25 09:56 10 MG Metolazone 5 mg DAILY PO 08/17/25 10:00 08/18/25 09:57 5 MG Patient Own Medication 1 tab DAILY PO 08/17/25 10:00 UNV Metoprolol Succinate 50 mg DAILY PO 08/17/25 10:00 08/18/25 09:57 50 MG Lisinopril 40 mg DAILY PO 08/17/25 10:00 Hold Allopurinol 300 mg DAILY PO 08/18/25 22:00 Patient Own Medication 300 mg BID PO 08/18/25 22:00 Furosemide 40 mg BIDD PO 08/18/25 18:00 08/18/25 17:08 40 MG laboratory and microbiology Laboratory Tests 08/18/25 14:43 Test 08/18/25 14:43 Range/Units Serum Glucose 103 74-106 mg/dL Problem List/Assessment/Plan Problem List/Assessment/Plan Acute intractable diarrhea likely due to to infectious or inflammatory enteritis Mild distal colonic diverticulosis CT of the abdomen and pelvis: Mild CHF/ volume overload, with mild cardiomegaly, minimal interstitial pulmonary edema, [id number]-[id number] ascites, and severe body wall edema. Wall thickening of a left upper quadrant small-bowel loop which could reflect infectious or inflammatory enteritis. Mild distal colonic diverticulosis. C diff pending Stool bacterial culture Hypertensive urgency History of coronary artery disease CHF exacerbation Cardiology consult Amlodipine 5 mg p.o. daily metoprolol 50 mg p.o. daily lisinopril [address] of the abdomen and pelvis: Partially imaged calcified coronary artery disease up to moderate in the left anterior descending coronary artery Chest X-ray: Cardiomegaly and moderate interstitial pulmonary edema. follow BNP follow Echocardiogram follow EKG Type 2 diabetes mellitus, hyperglycemia, uncontrolled mild sliding scale CKD Stage 4 with possible RUBEN on CKD Nephrology consult H/O stroke outpatient follow up with PCP on discharge type 2 diabetes mellitus Insulin sliding scale, target in-hospital BG 140-180 Essential hypertension Continue home medications Diet: Clear liquid Goals of care: Full code Plan discussed with patient Plan discussed with Dr. Rodriguez Plan discussed with: Patient Plan discussed with: Patient Date of Service: Aug 18, 2025 Billing Provider: MARQUIS RODRIGUEZ MD Common Visit Codes: 50310-UQH/OBS SAME DATE (HIGH) CRISTIAN NORIEGA RESIDENT Aug 18, 2025 17:28
--- NOTE | 2025-08-18 17:50 | DVHSR ---
APPROVED REPORT EXAM: Two-dimensional and M-mode echocardiogram with Doppler and color Doppler. Blood Pressure: 142/97 mmHg INDICATION Chest Pain RISK FACTORS Height: 5'9", Weight: 271 DIMENSIONS LVDd5.6 (3.8-5.7cm)LA (2D)5.1 (1.9-4.0cm)Aortic Root3.0 (2.0-3.7cm) LVDs4.6 (2.5-4.0cm)LA (MM) (1.9-4.0cm)Aortic Cusp Exc1.6 (1.5-2.0cm) EF (%) 35.0 (55-70%)Rt. Atrium5.3 (1.9-4.0cm)Asc. Aorta cm IVSd0.9 (0.7-1.1cm)RV (D) (1.8-2.4cm) PWd0.8 (0.7-1.1cm) Mitral Valve MitralMitral Stenosis E wave1.03m/sMV Mean GR.mmHg A wave0.66m/sMV Peak GR.mmHg E/A ratio1.62D MVAcm2 DECEL [id number] 1/2 Timems Aortic Valve Aortic ValveAortic Stenosis V10.69m/Neida Mean GR.3mmHg V21.02m/Neida Peak GR.4mmHg LVOT Diameter2.4 (1.8-2.4cm)Doppler AVA3.06cm2 Tricuspid Valve TR Velocity3.00m/s [id number] Other Information Quality : Technically LimitedRhythm : Technically limited study due to body habitus. Conclusion lvef 20-25% severe LV dysfunction RV enlarged biatrial enlargement moderate mitral regurg moderate to severe tricuspid regurg
[2025-08-18] MEDS: ALLOPURINOL 100 MG TAB PO SCH (21:08)
[2025-08-18] MEDS: OXCARBAZEPINE 300 MG PO SCH (21:09)
[2025-08-19] VITALS (7 sets, daily range): BP systolic 125–136; BP diastolic 82–97; PULSE 63–79; RESP 18–20; TEMP 36.8; O2SAT 96–98
[2025-08-19 06:59] LABS: Hematocrit 37.5 % (41.0-53.0); Hemoglobin 12.2 g/dL (13.5-17.5); Mean Corpuscular Hemoglobin 32.6 pg (28.0-32.0); Mean Corpuscular Volume 100.2 fL (80.0-100.0); Nucleated Red Blood Cells % 0.1 %
[2025-08-19 07:08] LABS: Chloride 105 mmol/L (98-107); Potassium 3.9 mmol/L (3.5-5.1); Sodium 138 mmol/L (136-145)
[2025-08-19 07:09] LABS: Anion Gap 15 (5-15)
[2025-08-19 07:15] LABS: BUN/Creatinine Ratio 11.4 (10.0-20.0)
[2025-08-19 07:17] LABS: Blood Urea Nitrogen 48 mg/dL (9-23); Calcium 8.5 mg/dL (8.7-10.4); Carbon Dioxide 18 mmol/L (20-31); Glucose 66 mg/dL (74-106)
--- NOTE | 2025-08-19 09:58 | DVHPNRES ---
Progress Note Date Seen: Aug 19, 2025 Resident Creating Document: RUDY HASSAN RESDIENT Medical Necessity Reason Pt with a Central, PICC or Fol: No Subjective Review of Systems Patient seen and examined at the bedside. Patient is feeling better, mostly complaining of shortness of breaths. Objective vital signs Vital Sign Date Time Temp Pulse Resp B/P (MAP) Pulse Ox O2 Delivery O2 Flow Rate FiO2 08/19/25 09:10 125/82 08/19/25 09:09 73 08/19/25 08:30 98.1 18 97 98.1 08/18/25 20:00 Room Air* 0 21 Total Intake and Output 08/18/25 08/18/25 08/19/25 15:00 23:00 07:00 Intake Total 100 ml 1380 ml 950 ml Output Total 550 ml 600 ml Balance 100 ml 830 ml 350 ml medications Current Medications Medications Dose Ordered Sig/Esteban Route Start Time Stop Time Status Last Admin Dose Admin Sodium Chloride 10 ml Q8HR IV 08/17/25 06:00 08/19/25 05:32 10 ML Ceftriaxone Sodium 50 ml @ 100 mls/hr Q24H IV 08/18/25 01:00 08/19/25 00:42 100 MLS/HR Metronidazole 100 ml @ 100 mls/hr Q8H IV 08/17/25 09:00 08/19/25 08:41 100 MLS/HR Diagnostic Test (Pha) 1 strip ACHS 08/17/25 07:00 08/19/25 06:09 1 STRIP Insulin Human Regular ACHS SC 08/17/25 07:00 08/18/25 17:26 2 UNITS Dextrose 50 ml UD PRN IV 08/17/25 00:15 Famotidine 10 mg DAILY PO 08/17/25 10:00 08/19/25 09:08 10 MG Metolazone 5 mg DAILY PO 08/17/25 10:00 08/19/25 09:10 5 MG Patient Own Medication 1 tab DAILY PO 08/17/25 10:00 UNV Metoprolol Succinate 50 mg DAILY PO 08/17/25 10:00 08/19/25 09:09 50 MG Lisinopril 40 mg DAILY PO 08/17/25 10:00 Hold Allopurinol 300 mg DAILY PO 08/18/25 22:00 08/19/25 09:09 300 MG Patient Own Medication 300 mg BID PO 08/18/25 22:00 08/19/25 09:08 300 MG Furosemide 40 mg BIDD PO 08/18/25 18:00 08/19/25 05:31 40 MG Examination General Appearance: Alert, Oriented X3, Cooperative, No acute distress HEENT: Atraumatic, PERRLA, EOMI, Mucous membrane moist/pink Respiratory: Clear to auscultation, Normal air movement Cardiovascular: Regular rate, Normal S1, Normal S2, No murmurs, no chest wall tenderness Abdominal: Mild abdominal tenderness Extremities: Bilateral lower limb pedal edema grade 2, with blister on the lower limb Skin: No rashes, No breakdown, No significant lesion Neuro: Normal gait, Normal speech, Strength at 5/5 X4 ext, Normal tone, Sensation intact, Cranial nerves 3-12 NL, Reflexes 2+ Psych/Mental Status: Mental status NL, Mood NL laboratory and microbiology Laboratory Tests 08/19/25 05:59 Test 08/19/25 05:59 Range/Units Serum Glucose 66 L 74-106 mg/dL Labs and/or images reviewed: Labs reviewed by me, Image(s) reviewed by me Problem List/Assessment/Plan Problem List/Assessment/Plan 59-year-old male with past medical history of CHF, CKD grade 4, diabetes, hypertension, status post pacemaker came to the hospital due to abdominal pain, diarrhea and bloating. Nephrology consulted due to CKD. Assessment: Acute on chronic systolic heart failure Volume overload, likely due to heart failure CKD grade 4 Diabetes type 2 Status post pacemaker Hypertension Possible Gastroenteritis * CT scan shows, bilateral small kidneys * Ultrasound shows increased echogenicity of left kidney Plan/Recommendation (Dr. Constantino) * IV Lasix 40 mg b.i.d. and metolazone 5 mg daily * Restrict fluid intake * Patient has stage IV CKD, consulted regarding requirement of AV fistula and possible dialysis in future * We will follow up with the patient Thank you for giving us the opportunity to take care of your patient. Please call back if you have any questions/concerns. Plan discussed with: Patient, Other (RN) My Orders My Orders Orders - RUDY HASSAN RESDIPABLITO Procedure Category Date Status Time Strict I & O NIXON 08/18/25 In Process 15:59 Furosemide Tablet PHA 08/18/25 In Process (Lasix Tablet) 18:00 Dietary Evaluation Review Comments: Nutrition Recommendation 1) Advance to [facility] 75gm + renal specific 80gm protein diet as medically feasible 2) Ramon 1 pk daily, Nephro-nellie 1 tab daily 3) Refer [employer] for diabetes education 4) Monitor PO intake, lab values, weight trend, and I/O Expected Outcomes/Goals: Intake to meet >75% estimated needs Wound to improve Fu 3-5 days RUDY HASSAN Aug 19, 2025 09:58
--- NOTE | 2025-08-19 16:11 | DVHDSRES ---
Discharge Summary Date of Admission Resident Creating Document: RUDY HASSAN Aug 16, 2025 at 23:48 Date of Discharge: Aug 19, 2025 Labs/Diagnostic Data: Laboratory Results Test 08/19/25 11:07 08/19/25 05:59 08/18/25 20:00 08/18/25 14:43 POC Glucose 154 mg/dl (70-106) White Blood Count 8.2 10^3/uL (4.4-10.8) Red Blood Count 3.74 10^6/uL (4.5-5.90) Hemoglobin 12.2 g/dL (13.5-17.5) Hematocrit 37.5 % (41.0-53.0) Mean Corpuscular Volume 100.2 fL (80.0-100.0) Mean Corpuscular Hemoglobin 32.6 pg (28.0-32.0) Mean Corpuscular Hemoglobin Concent 32.5 g/dL (32.0-36.0) Red Cell Distribution Width 16.3 % (11.8-14.3) Platelet Count 209 10^3/uL (140-450) Mean Platelet Volume 9.6 fL (6.9-10.8) Neutrophils (%) (Auto) 78.4 % (37.0-80.0) Lymphocytes (%) (Auto) 11.0 % (10.0-50.0) Monocytes (%) (Auto) 8.4 % (0.0-12.0) Eosinophils (%) (Auto) 1.7 % (0.0-7.0) Basophils (%) (Auto) 0.5 % (0.0-2.0) Neutrophils # (Auto) 6.4 10 ^3/uL (1.6-8.6) Lymphocytes # (Auto) 0.9 10 ^3/uL (0.4-5.4) Monocytes # (Auto) 0.7 10 ^3/uL (0-1.3) Eosinophils # (Auto) 0.1 10 ^3/uL (0-0.8) Basophils # (Auto) 0 10 ^3/uL (0-0.2) Nucleated Red Blood Cells 0.1 % Sodium Level 138 mmol/L (136-145) Potassium Level 3.9 mmol/L (3.5-5.1) Chloride Level 105 mmol/L (98-107) Carbon Dioxide Level 18 mmol/L (20-31) Anion Gap 15 (5-15) Blood Urea Nitrogen 48 mg/dL (9-23) Creatinine 4.22 mg/dL (0.700-1.30) Glomerular Filtration Rate Calc 16 mL/min (>90) BUN/Creatinine Ratio 11.4 (10.0-20.0) Serum Glucose 66 mg/dL (74-106) Calcium Level 8.5 mg/dL (8.7-10.4) Stool for White Cells Rare Total Bilirubin 0.5 mg/dL (0.2-1.0) Aspartate Amino Transferase (AST) 16 U/L (13-40) Alanine Aminotransferase (ALT) 9 U/L (7-40) Alkaline Phosphatase 120 U/L (46-116) Total Protein 6.3 g/dL (5.7-8.2) Albumin 2.9 g/dL (3.2-4.8) Test 08/18/25 05:21 08/17/25 11:19 08/17/25 07:29 Phosphorus Level 5.0 mg/dL (2.4-5.1) Vitamin D 25-Hydroxy 15.5 ng/mL (30.0-100) Parathyroid Hormone (Intact) 225.1 pg/mL (18.4-80.1) Urine Color Yellow (Yellow) Urine Clarity Turbid (Clear) Urine pH 6.0 (5.0-9.0) Urine Specific [place] 1.022 (1.001-1.035) Urine Protein 3+ (Negative) Urine Ketones 1+ (Negative) Urine Blood 1+ /uL (Negative) Urine Nitrite Negative (Negative) Urine Bilirubin Negative (Negative) Urine Urobilinogen Normal mg/dL (Negative) Urine Leukocyte Esterase Negative /uL (Negative) Urine RBC 2 /hpf (0 - 3) Urine Microscopic WBC 6 /HPF (0-3) Urine Squamous Epithelial Cells Few /hpf (<5) Urine Bacteria None seen /hpf (None Seen) Urine Glucose 2+ mg/dL (Normal) Urine Opiates Screen Neg (NEGATIVE) Urine Fentanyl Screen Neg (NEGATIVE) Urine Barbiturates Screen Neg (NEGATIVE) Urine Phencyclidine Screen Neg (NEGATIVE) Urine Amphetamines Screen Neg (NEGATIVE) Urine Benzodiazepines Screen Neg (NEGATIVE) Urine Cocaine Screen Neg (NEGATIVE) Urine Cannabinoids Screen Pos (NEGATIVE) Hemoglobin A1c 7.4 % A1C (<5.7) Magnesium Level 2.2 mg/dL (1.6-2.6) Direct Bilirubin 0.3 mg/dL (<0.3) B-Type Natriuretic Peptide 2569.82 pg/mL (0-100) Other Laboratory Tests 08/19/25 05:59 Brief Hx & Hospital Course: Patient is a 59-year-old male with past medical history of CHF, CKD stage 4, stroke, type 2 diabetes mellitus, hypertension, [employer] pacemaker presented to [facility] ED with complaint of watery diarrhea since 7 days. He also complains of associated fever, chills, abdominal bloating, confusion. He notes of an associated weight gain for the past few months. The stool. He denies any recent travel, nausea, vomiting or abdominal pain. He complains of worsening bilateral lower extremity swelling with associated with blister formation. He denies any chest pain, shortness of breath. On evaluation in the ED, the patient was hypotensive 189/109 and tachycardic with a heart rate of 102. Hospital he had multiple episodes of diarrhea. Cardiology and Nephrology consults were given for CHF and CKD. Patient came back positive for Clostridium difficile. Patient is insistent on being discharged today, hence being discharged. Condition at Discharge: Fair Final Diagnosis/Problems List Acute gastroenteritis due to Clostridium difficile Colonic diverticulosis Hypertensive urgency History of coronary artery disease CHF exacerbation Type 2 diabetes mellitus, hyperglycemia, uncontrolled CKD Stage 4 with possible RUBEN on CKD H/O stroke type 2 diabetes mellitus Essential hypertension Discharge Disposition: Home Discharge Instruct/Medications Diet: Renal Activity: No Restrictions, As Tolerated Follow Up/Referral: Follow up with PCP in 7 days Follow up with Nephrology as outpatient Follow up with Cardiology as outpatient Scheduled Allopurinol (Allopurinol), 1 TAB PO DAILY, (Reported) Amlodipine Besylate (Amlodipine Besylate), 1 TAB PO DAILY, (Reported) Famotidine (Pepcid Tablet), 1 TAB PO BID, (Reported) Finerenone (Kerendia), 1 TAB PO DAILY, (Reported) Furosemide (Furosemide), 2 TAB PO DAILY, (Reported) Gabapentin (Gabapentin), 1 CAP PO DAILY, (Reported) Gentamicin Sulfate (Gentamicin Sulfate), 1 APPLIC TOP TID, (Reported) Insulin Lispro (Admelog Solostar), UNITS SC UD, (Reported) Lisinopril (Lisinopril), 1 TAB PO DAILY, (Reported) Metolazone (Metolazone), 1 TAB PO DAILY, (Reported) Metoprolol Succinate (Metoprolol Succinate Er), 1 TAB PO DAILY, (Reported) Mupirocin (Pseudomonas Fluores (Mupirocin), 1 APPLIC TOP BID, (Reported) Oxcarbazepine (Trileptal), 1 TAB PO BID, (Reported) Sodium Zirconium Cyclosilicate (Lokelma), 1 PKT PO DAILY, (Reported) Vancomycin Hcl (Vancocin Hcl), 250 MG PO QID Yeast (S. Boulardii)(S. Cerevi (Florastor), 250 MG PO DAILY Discharge Statement: "Patient was advised to return to the ER or call 911 if any headaches, dizziness, shortness of breath, chest pain, abdominal pain, bleeding, fevers, or worsening of medical condition. Patient was counseled about treatment plan, medications, possible side effects, patientverbalized understanding. All questions were answered to the best of my ability. This discharge took greater then 30 minutes in planning, reviewing documentation, counseling the patient, and discussing with other team members." ASSESSMENT ASSESSMENT Assessment Inflammatory/infectious diarrhea Colonic diverticulosis Hypertensive urgency Date of Service: Aug 19, 2025 Billing Provider: MARQUIS BAUTISTA MD Common Visit Codes: 92571-RIP/OBS DISCH DAY >30min CRISTIAN NORIEGA Aug 19, 2025 16:06
[2025-08-19] MEDS ORDERED: SACC250C PO (16:19)
[2025-08-19] MEDS ORDERED: VANC1CAP7 PO (16:19)
[2025-08-19] MEDS: FUROSEMIDE 40 MG/4 ML VIAL IV ONE (17:42)
[2025-08-19] MEDS ORDERED: OXCARBAZEPINE 300 MG PO SCH (22:00)
[2025-08-20] MEDS ORDERED: FUROSEMIDE 40 MG/4 ML VIAL IV SCH (06:00)
== END 2025-08-19 18:35 | disposition home or self-care (01) | DRG 391 ==
LOC: EDUNIT# 14:16 → EDBD 14:16 → ER 14:16 → OVERFLOW 23:48 → TELE-CENTR 08-17 18:40 → CENTRAL 08-19 09:06
PROVIDERS: ADMIT Internal Medicine Geriatric Medicine; ATTEND Emergency Medicine
DX: A09 Infectious gastroenteritis and colitis, unspecified (principal); I50.23 Acute on chronic systolic (congestive) heart failure; N17.0 Acute kidney failure with tubular necrosis; I13.0 Hypertensive heart and chronic kidney disease with heart failure and stage 1 through stage 4 chronic kidney disease, or unspecified chronic kidney disease; I16.0 Hypertensive urgency; E11.22 Type 2 diabetes mellitus with diabetic chronic kidney disease; N18.4 Chronic kidney disease, stage 4 (severe); E11.65 Type 2 diabetes mellitus with hyperglycemia; K57.30 Diverticulosis of large intestine without perforation or abscess without bleeding; I25.10 Atherosclerotic heart disease of native coronary artery without angina pectoris; E11.9 Type 2 diabetes mellitus without complications; Z86.73 Personal history of transient ischemic attack (TIA), and cerebral infarction without residual deficits; Z95.0 Presence of cardiac pacemaker; Z83.3 Family history of diabetes mellitus
CPT/HCPCS: 36415; 71045; 74176; 76775; 80048; 80053; 80076; 80307; 81001; 82306; 82962; 83036; 83735; 83880; 83970; 84100; 85025; 85048; 87045; 87427; 87493; 93005; 93306; G0378; J1815; J3490

== ENCOUNTER 2025-09-26 12:51 | Inpatient (IN) | payer MEDICARE ==
[~2025-09-26] VITALS: Ht 175.3 cm; Wt 107.8 kg
[~2025-09-26 12:51] MED LIST changes: -AMLO1TAB22 PO; -BACDST PO; +FURO1TAB77 PO; -INSU1INJ13 SC; -OXCA300T50 PO; +PREG50CA PO; +SACC250C PO; +SEVE800T10 PO; +VANC1CAP7 PO; -[UNRECOGNIZED DRUG - CODE] PO
[2025-09-26 13:46] LABS: Hematocrit 30.9 % (41.0-53.0); Hemoglobin 9.8 g/dL (13.5-17.5); Mean Corpuscular Hemoglobin 31.1 pg (28.0-32.0); Mean Corpuscular Volume 98.2 fL (80.0-100.0); Nucleated Red Blood Cells % 0.0 %
--- NOTE | 2025-09-26 13:50 | DVH ---
CT HEAD WITHOUT CONTRAST Indication: altered EXAM DATE: 09/26/2025 01:19 PM COMPARISON: CT HEAD WITHOUT CONTRAST on DOS: 02/08/24, TECHNIQUE: CT of the head without intravenous contrast. RADIATION DOSE: CTDIvol: 62.31 mGy, DLP: 1212.26 mGy*cm FINDINGS: There is no intracranial hemorrhage. There is no extra-axial fluid, mass, mass effect or midline shift. The ventricles are midline and normal in size. Basilar cisterns are patent. Bilateral parietal, right occipital encephalomalacia. Less pronounced left occipital encephalomalacia. Mild periventricular and subcortical white matter chronic microvascular ischemic changes. Mild global cerebral volume loss. The paranasal sinuses and mastoids are well-pneumatized. Imaged portion of the orbits are unremarkable. IMPRESSION: No intracranial hemorrhage or mass effect. Bilateral cerebral encephalomalacia. Mild global cerebral volume loss.
[2025-09-26 13:52] LABS: Chloride 104 mmol/L (98-107); Sodium 142 mmol/L (136-145)
[2025-09-26 13:53] LABS: Anion Gap 13 (5-15); Calcium 7.9 mg/dL (8.7-10.4); Carbon Dioxide 25 mmol/L (20-31); Potassium 3.3 mmol/L (3.5-5.1)
--- NOTE | 2025-09-26 13:55 | DVH ---
CHEST RADIOGRAPH Indication: sob Technique: XY CHEST PORTABLE COMPARISON: None FINDINGS: Right IJ Perma catheter tip projects over the SVC. Left chest triple lead cardiac pacing device The cardiac silhouette is enlarged. The lungs demonstrate bilateral patchy airspace opacities. The pulmonary vasculature is prominent. Small bilateral pleural effusions. There is no pneumothorax. Old right mid clavicular fracture deformity. IMPRESSION: As above
[2025-09-26 13:58] LABS: BUN/Creatinine Ratio 6.3 (10.0-20.0); Glucose 93 mg/dL (74-106)
[2025-09-26 14:01] LABS: Blood Urea Nitrogen 43 mg/dL (9-23)
[2025-09-26 14:44] VITALS: PULSE 80; RESP 18; O2SAT 94
--- NOTE | 2025-09-26 15:12 | ED.PDOC ---
History of Present Illness HPI Comments 59 y/o M is BIBA from hemodialysis center for CPR in-progress call. Per EMS personnel report, patient has a history of,recent ESRD w/hemodialysis on and was attending his scheduled dialysis center when he had a witness arrest by staff at facility. CPR and AED was initiated by bystanders. Upon arrival on scene, patient was found A&Ox4, GCS15, and moaning in pain. At time of assessment, patient endorses on having current chest wall pain and dyspnea. Denies any further acute symptoms. Chief Complaint: Syncope Time Seen by MD: 13:00 Primary Care Provider: SUMIT Reviewed Notes: Nurses Notes, Repairer Pump Notes, Medications, Allergies Allergies: Coded Allergies: NO KNOWN ALLERGIES (Unverified , 01/14/24) Home Meds Active Scripts Yeast (S. Boulardii)(S. Cerevi (Florastor) 250 Mg Cap, 250 MG PO DAILY for 14 Days, #14 CAP Prov:YOBANI GOETZ RESIDENT 08/19/25 Vancomycin Hcl (Vancocin Hcl) 250 Mg Cap, 250 MG PO QID for 14 Days, #56 CAP Prov:YOBANI GOETZ RESIDENT 08/19/25 Reported Medications Gentamicin Sulfate (Gentamicin Sulfate) 0.1 % Cre, 1 APPLIC TOP TID for 30 Days, #30 08/17/25 Amlodipine Besylate (Amlodipine Besylate) 2.5 Mg Tab, 1 TAB PO DAILY for 90 Days, #90 08/17/25 Oxcarbazepine (Trileptal) 150 Mg Tab, 1 TAB PO BID for 90 Days, #180 08/17/25 Insulin Lispro (Admelog Solostar) 100 Unit/Ml Inj, UNITS SC UD for 30 Days, #15 08/17/25 Mupirocin (Pseudomonas Fluores (Mupirocin) 2 % Oin, 1 APPLIC TOP BID for 44 Days, #44 08/17/25 Allopurinol (Allopurinol) 300 Mg Tab, 1 TAB PO DAILY for 90 Days, #90 08/17/25 Furosemide (Furosemide) 40 Mg Tab, 2 TAB PO DAILY for 90 Days, #180 06/01/25 Finerenone (Kerendia) 10 Mg Tab, 1 TAB PO DAILY 01/15/24 Metoprolol Succinate (Metoprolol Succinate Er) 50 Mg Tab, 1 TAB PO DAILY for 90 Days, #90 01/14/24 Famotidine (PEPCID TABLET) 20 Mg Tb, 1 TAB PO BID 01/14/24 Metolazone (Metolazone) 5 Mg Tab, 1 TAB PO DAILY 01/14/24 Sodium Zirconium Cyclosilicate (Lokelma) 10 Gm Masood, 1 PKT PO DAILY for 30 Days, #30 01/14/24 Lisinopril (Lisinopril) 40 Mg Tab, 1 TAB PO DAILY 01/14/24 Gabapentin (Gabapentin) 300 Mg Cap, 1 CAP PO DAILY for 90 Days, #90 01/14/24 Information Source: Patient, Emergency Med Personnel Mode of Arrival: EMS Severity: Moderate Timing: Hours Duration: Since onset Prehospital treatment: 12 Lead EKG, Managed Services Consultant Past Medical History PAST MEDICAL HISTORY: CHF, CKF, CVA, DM, HTN Surgical History: Pacemaker Family History Family History: Reviewed,noncontributory to illness Social History Smoker: Non-Smoker Alcohol: Denies ETOH Use Drugs: Denies Drug Use Lives In: Home All Other Systems: Reviewed and Negative (Comprehensive review of systems are negative unless stated in HPI) Physical Exam General Appearance: Moderate Distress HEENT: Normal ENT Inspection, Pharynx Normal, TMs Normal Neck: Full Range of Motion, Non-Tender, Normal, Normal Inspection Respiratory: Chest Non-Tender, Lungs Clear, No Accessory Muscle Use, No Respiratory Distress, Normal Breath Sounds Cardiovascular: No Edema, No JVD, No Murmur, No Gallop, Normal Peripheral Pulses, Regular Rate/Rhythm Breast Exam: Deferred Gastrointestinal: No Organomegaly, Non Tender, No Pulsatile Mass, Normal Bowel Sounds, Soft Genitalia: Deferred Pelvic: Deferred Rectal: Deferred Extremities: No calf tenderness, No pedal edema Musculoskeletal : Apperance: Normal Neurologic: Alert, No Motor Deficits, No Sensory Deficits Cerebellar Function: NOT DONE Reflexes: NOT DONE Skin: Dry, Normal Color, Warm Peripheral Pulses: 3+ Radial (R), 3+ Radial (L) Lymphatic: No Adenopathy Was a procedure done? Was a procedure done?: No EKG EKG : Pulse Rate (adult): 88 Toney: Normal Cardiac Rhythm: Paced Block: None Hypertrophy: None ST: Normal Differential Dx Considerations may include: post ROSC, cardiopulmonary arrest, cardiogenic shock, hypovolemic shock, dehydration, electrolyte imbalance, among others X-Ray, Labs, Meds, VS Vital Signs Date Time Temp Pulse Resp B/P (MAP) Pulse Ox O2 Delivery O2 Flow Rate FiO2 09/26/25 18:00 81 17 151/88 (109) 93 09/26/25 16:00 98.0 83 17 142/98 (113) 93 98.0 09/26/25 15:53 94 Room Air* 0 21 09/26/25 15:25 98.0 94 20 151/80 99 98.0 09/26/25 15:15 88 09/26/25 14:44 80 18 94 Room Air* 0 21 09/26/25 14:00 80 17 147/88 (107) 93 09/26/25 13:55 97.5 82 17 152/84 (106) 93 97.5 09/26/25 12:52 88 Lab Test 09/26/25 16:33 09/26/25 14:21 09/26/25 13:42 09/26/25 13:30 Range/Units Troponin I High Sensitivity 23 20 30 </=54 ng/L POC Glucose 95 70-106 mg/dl White Blood Count 7.5 4.4-10.8 10^3/uL Red Blood Count 3.15 L 4.5-5.90 10^6/uL Hemoglobin 9.8 L 13.5-17.5 g/dL Hematocrit 30.9 L 41.0-53.0 % Mean Corpuscular Volume 98.2 80.0-100.0 fL Mean Corpuscular Hemoglobin 31.1 28.0-32.0 pg Mean Corpuscular Hemoglobin Concent 31.6 L 32.0-36.0 g/dL Red Cell Distribution Width 16.3 H 11.8-14.3 % Platelet Count 115 L 140-450 10^3/uL Mean Platelet Volume 8.8 6.9-10.8 fL Neutrophils (%) (Auto) 80.9 H 37.0-80.0 % Lymphocytes (%) (Auto) 8.1 L 10.0-50.0 % Monocytes (%) (Auto) 8.7 0.0-12.0 % Eosinophils (%) (Auto) 1.8 0.0-7.0 % Basophils (%) (Auto) 0.5 0.0-2.0 % Neutrophils # (Auto) 6.0 1.6-8.6 10 ^3/uL Lymphocytes # (Auto) 0.6 0.4-5.4 10 ^3/uL Monocytes # (Auto) 0.7 0-1.3 10 ^3/uL Eosinophils # (Auto) 0.1 0-0.8 10 ^3/uL Basophils # (Auto) 0 0-0.2 10 ^3/uL Nucleated Red Blood Cells 0.0 % Sodium Level 142 136-145 mmol/L Potassium Level 3.3 L 3.5-5.1 mmol/L Chloride Level 104 98-107 mmol/L Carbon Dioxide Level 25 20-31 mmol/L Anion Gap 13 5-15 Blood Urea Nitrogen 43 H 9-23 mg/dL Creatinine 6.85 H 0.700-1.30 mg/dL Glomerular Filtration Rate Calc 9 >90 mL/min BUN/Creatinine Ratio 6.3 L 10.0-20.0 Serum Glucose 93 74-106 mg/dL Calcium Level 7.9 L 8.7-10.4 mg/dL B-Type Natriuretic Peptide 1232.11 0-100 pg/mL Patient alert. Vitals stable. Had CPR prior to coming to the ER. BNP elevated. Kidney function elevated. He is on dialysis. Cardiac marker within normal limits. Nephrology consultation. Potassium is low. Explained to the patient. Continue monitoring. Time of 1ST Reevaluation: 13:30 Reevaluation 1ST: Unchanged Patient Education/Counseling: Diagnosis, Treatment Family Education/Counseling: No Family Present SEPSIS Sepsis Screen Physician Orders Chest Portable (09/26/25 13:06) Head Without Contrast (09/26/25 13:06) Electrocardigram (09/26/25 13:09) Vital Signs Date Time Temp Pulse Resp B/P (MAP) Pulse Ox O2 Delivery O2 Flow Rate FiO2 09/26/25 18:00 81 17 151/88 (109) 93 09/26/25 16:00 98.0 83 17 142/98 (113) 93 98.0 09/26/25 15:53 94 Room Air* 0 21 09/26/25 15:25 98.0 94 20 151/80 99 98.0 09/26/25 15:15 88 09/26/25 14:44 80 18 94 Room Air* 0 21 09/26/25 14:00 80 17 147/88 (107) 93 09/26/25 13:55 97.5 82 17 152/84 (106) 93 97.5 09/26/25 12:52 88 Laboratory Tests Test 09/26/25 13:30 White Blood Count 7.5 10^3/uL (4.4-10.8) Departure 1 Departure Time of Disposition: 17:45 Impression: Primary Impression: CHF (congestive heart failure) Qualified Codes: I50.43 - Acute on chronic combined systolic (congestive) and diastolic (congestive) heart failure Additional Impression: End stage renal disease on dialysis Disposition: ADMITTED INPATIENT Admit to: Med Surg Condition: Guarded Critical Care Note Critical Care Time?: Yes (90 min-critical care time only) Stability Stability form required: No Heart Score Heart Score: Heart Score Response (Comments) Value History Moderate Suspicious 1 EKG Normal 0 Age 45-64 1 Risk Factors >3 or Hx ASHD 2 Troponin Normal limit 0 Total 4 I personally scribed for EMERSON OLIVAREZ MD ([email or web address]) on 09/26/25 at 15:12. Electronically submitted by Bj Jefferson ([email or web address]). I personally scribed for EMERSON OLIVAREZ MD ([email or web address]) on 09/26/25 at 15:15. Electronically submitted by Bj Jefferson ([email or web address]). EMERSON OLIVAREZ MD Sep 26, 2025 15:12
--- NOTE | 2025-09-26 21:13 | DVHHP2 ---
History of Present Illness Reason for Visit: Acute on chronic systolic congestive heart failure History of Present Illness The patient is a 59-year-old male with past medical history of chronic kidney failure on hemodialysis T, TH, SAT,, CHF, CVA, diabetes mellitus, and hypertension who presented to [facility] ED for evaluation of syncopal episode. Patient was at dialysis center receiving scheduled dialysis session when he had witnessed cardiac arrest and CPR, AED was activated by bystanders. When EMS arrived on the scene, patient was found alert oriented x4, GCS 15, chest wall pain, dyspnea, and moaning in pain. Patient was seen and evaluated in the ED, laboratory data shows WBC 7.5, hemoglobin 9.8, hematocrit 30.9, platelets 115, sodium 142, potassium 3.3, BUN 43, creatinine 6.85, GFR 9, glucose 93, calcium 7.9, troponin 20, BNP 1232.11, blood pressure 142/80, heart rate 77, temperature 97.6 F, O2 saturation 95% on oxygen. Head CT showed no acute intracranial hemorrhage or mass effect. Please see medication orders section in the computer. On my assessment, patient denied chest pain, no headache, dizziness, diaphoresis, currently on oxygen, no diarrhea, nausea, vomiting, fever, no chills. Patient was admitted for further evaluation and medical management. Past Medical History CHF, CKF, CVA, DM, HTN Past Surgical History Pacemaker Family History Reviewed, noncontributory to the management of this case. Past Social History The patient lives at home, denies smoking, alcohol or illicit drugs abuse. Review of Systems Constitutional: Yes: Weakness; No: Fever, Chills, Sweats, Malaise, Other Eyes: No: Pain, Vision change, Conjunctivae inflammation, Eyelid inflammation, Other, Redness ENT: No: Ear pain, Ear discharge, Nose pain, Nose discharge, Nose congestion, Mouth pain, Mouth swelling, Throat pain, Throat swelling, Other Respiratory: No: Cough, Dry, Shortness of breath, SOB with excertion, Wheezing, Hemoptysis, Pleuritic Pain, Sputum, Wheezing, Other Cardiovascular: Chest Pain; No: Palpitations, Orthopnea, Paroxysmal Noc. Dyspnea, Edema, Lt Headedness, Other Gastrointestinal: No: Nausea, Vomiting, Abdominal Pain, Diarrhea, Constipation, Melena, Hematochezia, Other Genitourinary: No Dysuria, No Frequency, No Incontinence, No Hematuria, No Retention; Other (On hemodialysis) Musculoskeletal: No: other, neck pain, shoulder pain, arm pain, back pain, hand pain, leg pain, foot pain Skin: No: Rash, Lesions, Jaundice, Bruising, Other Neurological: No: Weakness, Numbness, Incoordination, Change in speech, Confusion, Seizures, Other Allergies: Coded Allergies: NO KNOWN ALLERGIES (Unverified , 01/14/24) Exam Vital Signs Vital Signs Date Time Temp Pulse Resp B/P (MAP) Pulse Ox O2 Delivery O2 Flow Rate FiO2 09/26/25 19:11 97.6 77 12 142/80 (100) 95 97.6 09/26/25 15:53 Room Air* 0 21 General Appearance: Alert, Oriented X3, Cooperative, No acute distress HEENT: Atraumatic, PERRLA, EOMI, Mucous membr. moist/pink Respiratory: Normal air movement Cardiovascular: Regular rate, Normal S1, Normal S2, No murmurs Abdominal: Normal bowel sounds, Soft, No tenderness, No hepatospenomegaly, No masses Extremities: No clubbing, No cyanosis, No edema, Normal pulses, No tenderness/swelling Skin: No rashes, No significant lesion Neuro: Normal speech, Normal tone, Sensation intact, Cranial nerves 3-12 NL, Reflexes 2+, Other (Generalized weakness) Psych/Mental Status: Mental status NL, Mood NL Labs/Xrays Labs Test 09/26/25 19:31 09/26/25 16:33 09/26/25 13:30 Range/Units POC Glucose 86 70-106 mg/dl Troponin I High Sensitivity 23 </=54 ng/L White Blood Count 7.5 4.4-10.8 10^3/uL Red Blood Count 3.15 L 4.5-5.90 10^6/uL Hemoglobin 9.8 L 13.5-17.5 g/dL Hematocrit 30.9 L 41.0-53.0 % Mean Corpuscular Volume 98.2 80.0-100.0 fL Mean Corpuscular Hemoglobin 31.1 28.0-32.0 pg Mean Corpuscular Hemoglobin Concent 31.6 L 32.0-36.0 g/dL Red Cell Distribution Width 16.3 H 11.8-14.3 % Platelet Count 115 L 140-450 10^3/uL Mean Platelet Volume 8.8 6.9-10.8 fL Neutrophils (%) (Auto) 80.9 H 37.0-80.0 % Lymphocytes (%) (Auto) 8.1 L 10.0-50.0 % Monocytes (%) (Auto) 8.7 0.0-12.0 % Eosinophils (%) (Auto) 1.8 0.0-7.0 % Basophils (%) (Auto) 0.5 0.0-2.0 % Neutrophils # (Auto) 6.0 1.6-8.6 10 ^3/uL Lymphocytes # (Auto) 0.6 0.4-5.4 10 ^3/uL Monocytes # (Auto) 0.7 0-1.3 10 ^3/uL Eosinophils # (Auto) 0.1 0-0.8 10 ^3/uL Basophils # (Auto) 0 0-0.2 10 ^3/uL Nucleated Red Blood Cells 0.0 % Sodium Level 142 136-145 mmol/L Potassium Level 3.3 L 3.5-5.1 mmol/L Chloride Level 104 98-107 mmol/L Carbon Dioxide Level 25 20-31 mmol/L Anion Gap 13 5-15 Blood Urea Nitrogen 43 H 9-23 mg/dL Creatinine 6.85 H 0.700-1.30 mg/dL Glomerular Filtration Rate Calc 9 >90 mL/min BUN/Creatinine Ratio 6.3 L 10.0-20.0 Serum Glucose 93 74-106 mg/dL Calcium Level 7.9 L 8.7-10.4 mg/dL B-Type Natriuretic Peptide 1232.11 0-100 pg/mL PATIENT: MARISA ABAD SIDRAACCT: [id number] UNIT: [id number] : 1965 LOC: ER ROOM / BED: / AGE / SEX: 59 / M ADM STATUS: REG ER SERVICE 1306 ORDERING PHYSICIAN: EMERSON OLIVAREZ MD PROCEDURE(s): HWOCT - HEAD WITHOUT CONTRAST REASON: altered ORDER NUMBER(s): [id number], ACCESSION NUMBER(s): [id number] CT HEAD WITHOUT CONTRAST Indication: altered EXAM DATE: 09/26/2025 01:19 PM COMPARISON: CT HEAD WITHOUT CONTRAST on DOS: 02/08/24, TECHNIQUE: CT of the head without intravenous contrast. RADIATION DOSE: CTDIvol: 62.31 mGy, DLP: 1212.26 mGy*cm FINDINGS: There is no intracranial hemorrhage. There is no extra-axial fluid, mass, mass effect or midline shift. The ventricles are midline and normal in size. Basilar cisterns are patent. Bilateral parietal, right occipital encephalomalacia. Less pronounced left occipital encephalomalacia. Mild periventricular and subcortical white matter chronic microvascular ischemic changes. Mild global cerebral volume loss. The paranasal sinuses and mastoids are well-pneumatized. Imaged portion of the orbits are unremarkable. IMPRESSION: No intracranial hemorrhage or mass effect. Bilateral cerebral encephalomalacia. Mild global cerebral volume loss. ORDERING PHYSICIAN: EMERSON OLIVAREZ MD PROCEDURE(s): CXRP - CHEST PORTABLE REASON: sob ORDER NUMBER(s): [id number], ACCESSION NUMBER(s): [id number] CHEST RADIOGRAPH Indication: sob Technique: XY CHEST PORTABLE COMPARISON: None FINDINGS: Right IJ Perma catheter tip projects over the SVC. Left chest triple lead cardiac pacing device The cardiac silhouette is enlarged. The lungs demonstrate bilateral patchy airspace opacities. The pulmonary vasculature is prominent. Small bilateral pleural effusions. There is no pneumothorax. Old right mid clavicular fracture deformity. IMPRESSION: As above SEPSIS Sepsis Screen Date sepsis recognized/suspect: Sep 26, 2025 Time Sepsis recognized/suspect: 1552 Recent Procedure: No On Antibiotic Therapy: No Respiratory Rate >20: No Heart Rate >90: No Temp<36 C (96.8 F) or >38.3 C: No SBP <90 or MAP <65 mmHG: No New Acute Mental Status Change: No Is the patient on CPAP, BIPAP,: No Physician Orders Carvedilol Tablet (Coreg Tablet) (09/26/25 22:00) Famotidine Injection (Pepcid Injection) (09/27/25 10:00) Furosemide Injection (Lasix Injection) (09/26/25 21:15) Furosemide Injection (Lasix Injection) (09/27/25 10:00) Amlodipine Tablet (Norvasc Tablet) (09/27/25 10:00) Gabapentin Capsule (Neurontin Capsule) (09/26/25 22:00) Calcium Ivpb (09/26/25 21:15) Consistent Carb(Ccho)Diabetes (09/27/25 Breakfast) Potassium Er Tablet (Klor-Con Tablet) (09/26/25 21:15) Glucose Blood (Accu-Chek Comfort Curve T (09/26/25 22:00) Mild Sliding Scale (09/26/25 22:00) Dextrose 50% Syringe (09/26/25 21:15) Admit (09/26/25 21:05) Allergies (09/26/25 21:05) Code Status (09/26/25 21:05) Sodium Chloride Lock (Saline Lock Ns) (09/26/25 22:00) Oxygen Per Hour (09/26/25 21:05) Hydrocodone-Acet 5/325mg Tab ([place] (09/26/25 21:15) Ondansetron Hcl (Zofran) (09/26/25 21:15) Docusate Sodium Capsule (Colace Capsule) (09/26/25 21:15) Complete Blood Count (09/27/25 04:00) Comprehensive Metabolic Panel (09/27/25 04:00) Condition: Serious (09/26/25 21:05) Acetaminophen Tablet (Tylenol Tablet) (09/26/25 21:15) Bedrest With Bathroom Privileg (09/26/25 21:05) Sequential Compression Device (09/26/25 ) Nitroglycerin Sublingual (Ntrostat Subli (09/26/25 21:15) Vital Signs Date Time Temp Pulse Resp B/P (MAP) Pulse Ox O2 Delivery O2 Flow Rate FiO2 09/26/25 19:11 97.6 77 12 142/80 (100) 95 97.6 09/26/25 18:00 81 17 151/88 (109) 93 09/26/25 16:00 98.0 83 17 142/98 (113) 93 98.0 09/26/25 15:53 94 Room Air* 0 09/26/25 15:25 98.0 94 20 151/80 99 98.0 09/26/25 15:15 88 09/26/25 14:44 80 18 94 Room Air* 0 21 09/26/25 14:00 80 17 147/88 (107) 93 09/26/25 13:55 97.5 82 17 152/84 (106) 93 97.5 Laboratory Tests Test 09/26/25 13:30 White Blood Count 7.5 10^3/uL (4.4-10.8) Assessment/Plan Assessment/Plan Acute on chronic systolic congestive heart failure Anemia of chronic disease Electrolyte imbalance End stage renal disease on dialysis Generalized weakness Plan 1. Admit to telemetry unit 2. Breathing treatment 3. Pain control management 4. Management of fluids and electrolytes 5. Consultation for Nephrology 6. Diagnostic tests head CT 7. DVT prophylaxis-on aspirin 8. Repeat labs CBC, CMP in a.m. 9. Continue with current medical management 10. Treatment plan discussed with patient and RN. Patient verbalized understanding. Plan discussed with: Patient, Other (RN) My Orders Orders - AROLDO SCHUMACHER DNP Procedure Category Date Status Time Carvedilol Tablet PHA 09/26/25 Verified (Coreg Tablet) 22:00 Famotidine Injection PHA 09/27/25 Verified (Pepcid Injection) 10:00 Furosemide Injection PHA 09/26/25 Verified (Lasix Injection) 21:15 Furosemide Injection PHA 09/27/25 Verified (Lasix Injection) 10:00 Amlodipine Tablet PHA 09/27/25 Verified (Norvasc Tablet) 10:00 Gabapentin Capsule PHA 09/26/25 Verified (Neurontin Capsule) 22:00 Calcium Ivpb PHA 09/26/25 Verified 21:15 Consistent DIET 09/27/25 Verified Carb(Ccho)Diabetes Breakfast Potassium Er Tablet PHA 09/26/25 Verified (Klor-Con Tablet) 21:15 Glucose Blood PHA 09/26/25 Verified (Accu-Chek Comfort 22:00 Mild Sliding Scale PHA 09/26/25 Verified 22:00 Dextrose 50% Syringe PHA 09/26/25 Verified 21:15 Admit ADMIT 09/26/25 Verified 21:05 Allergies NIXON 09/26/25 Verified 21:05 Code Status CODE 09/26/25 Verified 21:05 Sodium Chloride Lock PHA 09/26/25 Verified (Saline Lock Ns) 22:00 Oxygen Per Hour RT 09/26/25 Verified 21:05 Hydrocodone-Acet PHA 09/26/25 Verified 5/325mg Tab ([place] 21:15 Ondansetron Hcl PHA 09/26/25 Verified (Zofran) 21:15 Docusate Sodium PHA 09/26/25 Verified Capsule (Colace 21:15 Complete Blood Count LAB 09/27/25 Verified 04:00 Comprehensive LAB 09/27/25 Verified Metabolic Panel 04:00 Condition: Serious [place] 09/26/25 Verified 21:05 Acetaminophen Tablet PHA 09/26/25 Verified (Tylenol Tablet) 21:15 Bedrest With Bathroom [facility] 09/26/25 Verified Privileg 21:05 Sequential [facility] 09/26/25 Verified Compression Device Nitroglycerin [facility] 09/26/25 Verified Sublingual (Ntrostat 21:15 Problem List: (1) Acute on chronic systolic congestive heart failure (2) Electrolyte imbalance (3) Anemia of chronic disease (4) End stage renal disease on dialysis (5) Generalized weakness Date of Service: Sep 26, 2025 Billing Provider: AROLDO SCHUMACHER DNP Common Visit Codes: [id number] INP/OBS CARE (HIGH) AROLDO SCHUMACHER DNP Sep 26, 2025 21:13
[2025-09-26] MEDS ORDERED: ONDANSETRON HCL 4 MG/2 ML VIAL IV PRN (21:15)
[2025-09-26] MEDS ORDERED: DOCUSATE SOD 100 MG CAP PO PRN (21:15)
[2025-09-26] MEDS ORDERED: NITROGLYCERIN 0.4 MG SL TAB SL PRN (21:15)
[2025-09-26] MEDS ORDERED: DEXTROSE (50%) 50ML SYRG IV PRN (21:15)
[2025-09-26] MEDS ORDERED: MORPHINE SULFATE INJ 2 MG/ml SYRG IV PRN (21:15)
[2025-09-26] MEDS: GABAPENTIN 300 MG CAP PO SCH (22:00)
[2025-09-26] MEDS: SODIUM CHLOR 0.9% PF (SALINE LOCK) 10ML VIAL/SYR IV SCH (22:16)
[2025-09-26] MEDS: POTASSIUM CHL 20 Meq TABLET PO ONE (22:20)
[2025-09-26] MEDS: CALCIUM GLUC 1,000mg/50ml-NS 50 ML IV ONE (22:20)
[2025-09-26] MEDS: FUROSEMIDE 40 MG/4 ML VIAL IV ONE (22:21)
[2025-09-26] MEDS: InsuLIN REG 1unit/0.01ml Soln (100units/ml) SC SCH (23:47)
[2025-09-26] MEDS: ACCU-CHEK COMFORT CURVE STRIP VI SCH (23:47)
[2025-09-26] MEDS: CARVEDILOL 12.5 MG TAB PO SCH (23:48)
[2025-09-27 02:30] LABS: Hematocrit 27.7 % (41.0-53.0); Hemoglobin 8.8 g/dL (13.5-17.5); Mean Corpuscular Hemoglobin 30.8 pg (28.0-32.0); Mean Corpuscular Volume 96.7 fL (80.0-100.0); Nucleated Red Blood Cells % 0.0 %
[2025-09-27 02:55] LABS: Alanine Aminotransferase 15 U/L (7-40); Anion Gap 13 (5-15); BUN/Creatinine Ratio 7.4 (10.0-20.0); Carbon Dioxide 26 mmol/L (20-31); Chloride 103 mmol/L (98-107); Glucose 97 mg/dL (74-106); Potassium 4.0 mmol/L (3.5-5.1); Sodium 142 mmol/L (136-145); Total Protein 6.4 g/dL (5.7-8.2)
[2025-09-27 02:56] LABS: Albumin 3.0 g/dL (3.2-4.8); Alkaline Phosphatase 143 U/L (46-116); Bilirubin, Total 0.2 mg/dL (0.2-1.0); Blood Urea Nitrogen 49 mg/dL (9-23); Calcium 7.7 mg/dL (8.7-10.4)
[2025-09-27 05:07] LABS: Urine Protein, UAD 3+ (Negative)
[2025-09-27] MEDS: HYDROcodone-ACET 5/325MG TAB PO PRN (09:39)
[2025-09-27] MEDS: FUROSEMIDE 40 MG/4 ML VIAL IV SCH (11:25)
[2025-09-27] MEDS: FAMOTIDINE (10MG/ML) 2ML VL IV SCH (11:25)
--- NOTE | 2025-09-27 11:27 | DVHINCON2 ---
Date of service: Sep 27, 2025 Referring Physician Hospital Reason for Consultation End-stage renal disease History of Present Illness Patient was receiving hemodialysis on Sunday at [facility] dialysis unit per nurse patient became unresponsive and CPR was initiated he was transferred to the hospital. Patient is currently not intubated Alert and oriented in the ER, not on pressors 59-year-old male with past medical history of end-stage renal disease recently started on dialysis due to severe diabetic nephropathy, hypertension, peripheral artery disease, congestive heart failure with ejection fraction less than 25%. He presents to the hospital due to above Allergies: Coded Allergies: NO KNOWN ALLERGIES (Unverified , 01/14/24) Home Meds Active Scripts Yeast (S. Boulardii)(S. Cerevi (Florastor) 250 Mg Cap, 250 MG PO DAILY for 14 Days, #14 CAP Prov:YOBANI GOETZ RESIDENT 08/19/25 Vancomycin Hcl (Vancocin Hcl) 250 Mg Cap, 250 MG PO QID for 14 Days, #56 CAP Prov:YOBANI GOETZ RESIDENT 08/19/25 Reported Medications Gentamicin Sulfate (Gentamicin Sulfate) 0.1 % Cre, 1 APPLIC TOP TID for 30 Days, #30 08/17/25 Amlodipine Besylate (Amlodipine Besylate) 2.5 Mg Tab, 1 TAB PO DAILY for 90 Days, #90 08/17/25 Oxcarbazepine (Trileptal) 150 Mg Tab, 1 TAB PO BID for 90 Days, #180 08/17/25 Insulin Lispro (Admelog Solostar) 100 Unit/Ml Inj, UNITS SC UD for 30 Days, #15 08/17/25 Mupirocin (Pseudomonas Fluores (Mupirocin) 2 % Oin, 1 APPLIC TOP BID for 44 Days, #44 08/17/25 Allopurinol (Allopurinol) 300 Mg Tab, 1 TAB PO DAILY for 90 Days, #90 08/17/25 Furosemide (Furosemide) 40 Mg Tab, 2 TAB PO DAILY for 90 Days, #180 06/01/25 Finerenone (Kerendia) 10 Mg Tab, 1 TAB PO DAILY 01/15/24 Metoprolol Succinate (Metoprolol Succinate Er) 50 Mg Tab, 1 TAB PO DAILY for 90 Days, #90 01/14/24 Famotidine (PEPCID TABLET) 20 Mg Tb, 1 TAB PO BID 01/14/24 Metolazone (Metolazone) 5 Mg Tab, 1 TAB PO DAILY 01/14/24 Sodium Zirconium Cyclosilicate (Lokelma) 10 Gm Masood, 1 PKT PO DAILY for 30 Days, #30 01/14/24 Lisinopril (Lisinopril) 40 Mg Tab, 1 TAB PO DAILY 01/14/24 Gabapentin (Gabapentin) 300 Mg Cap, 1 CAP PO DAILY for 90 Days, #90 01/14/24 Current Medications Current Medications Medications (Trade) Dose Ordered Sig/Esteban Route PRN Reason Start Time Stop Time Status Last Admin Carvedilol (Coreg Tablet) 12.5 mg Q12HR PO 09/26/25 22:00 09/26/25 23:48 Famotidine (Pepcid Injection) 20 mg DAILY IV 09/27/25 10:00 Furosemide (Lasix Injection) 40 mg DAILY IV 09/27/25 10:00 Amlodipine Besylate (Norvasc Tablet) 5 mg DAILY PO 09/27/25 10:00 Gabapentin (Neurontin Capsule) 300 mg BID PO 09/26/25 22:00 Diagnostic Test (Pha) (Accu-Chek Comfort Curve T) 1 strip ACHS 09/26/25 22:00 09/27/25 07:00 Insulin Human Regular (InsuLIN R) ACHS SC 09/26/25 22:00 Dextrose 50 ml UD PRN IV Blood Sugar LESS THAN 60 09/26/25 21:15 Sodium Chloride (Saline Lock Ns) 10 ml Q8HR IV 09/26/25 22:00 09/27/25 06:02 Acetaminophen/ Hydrocodone Bitart ([place] 5/325MG Tab) 1 tab Q4HP PRN PO MODERATE PAIN (4-6 PAIN SCALE) 09/26/25 21:15 09/27/25 09:39 Ondansetron HCl (Zofran) 4 mg Q4HP PRN IV NAUSEA / VOMITING 09/26/25 21:15 Docusate Sodium (Colace Capsule) 100 mg BIDPRN PRN PO FOR CONSTIPATION 09/26/25 21:15 Acetaminophen (Tylenol Tablet) 650 mg Q6HP PRN PO PAIN SCALE 1-3 OR TEMP>100.4 09/26/25 21:15 Nitroglycerin (Ntrostat Sublingual) 0.4 mg Q5MINP PRN SL FOR CHEST PAIN 09/26/25 21:15 Morphine Sulfate 2 mg Q30M PRN IV FOR CHEST PAIN 09/26/25 21:15 Family History: Cerebrovascular accident (CVA) G8 FATHER, Diabetes mellitus G8 MOTHER G8 FATHER, Review of Systems Unresponsiveness during dialysis H&P Exam Vital Signs/I&O Vital Sign Date Time Temp Pulse Resp B/P (MAP) Pulse Ox O2 Delivery O2 Flow Rate FiO2 09/27/25 08:00 Nasal Cannula* 2 28 09/27/25 08:00 98.4 60 10 122/60 (80) 96 98.4 Intake and Output 09/26/25 09/27/25 19:00 07:00 Intake Total 50 ml Balance 50 ml Intake IV Total 50 ml Physical Exam Elderly male appears older than stated age Appears chronically ill Central line, tunneled dialysis catheter 1+ ankle edema Not intubated Labs/Diagnostic Data Labs/Diagnostic Data Laboratory Tests Test 09/27/25 06:52 09/27/25 04:30 09/27/25 02:14 09/26/25 19:31 Range/Units POC Glucose 88 86 70-106 mg/dl Urine Color Light-yellow Yellow Urine Clarity Clear Clear Urine pH 6.5 5.0-9.0 Urine Specific [place] 1.012 1.001-1.035 Urine Protein 3+ H Negative Urine Ketones Negative Negative Urine Blood Trace H Negative /uL Urine Nitrite Negative Negative Urine Bilirubin Negative Negative Urine Urobilinogen Normal Negative mg/dL Urine Leukocyte Esterase Trace Negative /uL Urine RBC 1 0 - 3 /hpf Urine Microscopic WBC 4 H 0-3 /HPF Urine Squamous Epithelial Cells Few <5 /hpf Urine Bacteria Few H None Seen /hpf Urine Glucose 1+ H Normal mg/dL White Blood Count 5.5 # 4.4-10.8 10^3/uL Red Blood Count 2.86 L 4.5-5.90 10^6/uL Hemoglobin 8.8 L 13.5-17.5 g/dL Hematocrit 27.7 #L 41.0-53.0 % Mean Corpuscular Volume 96.7 80.0-100.0 fL Mean Corpuscular Hemoglobin 30.8 28.0-32.0 pg Mean Corpuscular Hemoglobin Concent 31.9 L 32.0-36.0 g/dL Red Cell Distribution Width 16.5 H 11.8-14.3 % Platelet Count 115 L 140-450 10^3/uL Mean Platelet Volume 8.6 6.9-10.8 fL Neutrophils (%) (Auto) 75.4 37.0-80.0 % Lymphocytes (%) (Auto) 9.6 L 10.0-50.0 % Monocytes (%) (Auto) 11.6 0.0-12.0 % Eosinophils (%) (Auto) 1.6 0.0-7.0 % Basophils (%) (Auto) 1.8 0.0-2.0 % Neutrophils # (Auto) 4.2 1.6-8.6 10 ^3/uL Lymphocytes # (Auto) 0.5 0.4-5.4 10 ^3/uL Monocytes # (Auto) 0.6 0-1.3 10 ^3/uL Eosinophils # (Auto) 0.1 0-0.8 10 ^3/uL Basophils # (Auto) 0.1 0-0.2 10 ^3/uL Nucleated Red Blood Cells 0.0 % Sodium Level 142 136-145 mmol/L Potassium Level 4.0 3.5-5.1 mmol/L Chloride Level 103 98-107 mmol/L Carbon Dioxide Level 26 20-31 mmol/L Anion Gap 13 5-15 Blood Urea Nitrogen 49 H 9-23 mg/dL Creatinine 6.61 H 0.700-1.30 mg/dL Glomerular Filtration Rate Calc 9 >90 mL/min BUN/Creatinine Ratio 7.4 L 10.0-20.0 Serum Glucose 97 74-106 mg/dL Calcium Level 7.7 L 8.7-10.4 mg/dL Total Bilirubin 0.2 0.2-1.0 mg/dL Aspartate Amino Transferase (AST) 16 13-40 U/L Alanine Aminotransferase (ALT) 15 7-40 U/L Alkaline Phosphatase 143 H 46-116 U/L Total Protein 6.4 5.7-8.2 g/dL Albumin 3.0 L 3.2-4.8 g/dL Test 09/26/25 16:33 09/26/25 14:21 09/26/25 13:42 09/26/25 13:30 Range/Units Troponin I High Sensitivity 23 20 30 </=54 ng/L POC Glucose 95 70-106 mg/dl White Blood Count 7.5 4.4-10.8 10^3/uL Red Blood Count 3.15 L 4.5-5.90 10^6/uL Hemoglobin 9.8 L 13.5-17.5 g/dL Hematocrit 30.9 L 41.0-53.0 % Mean Corpuscular Volume 98.2 80.0-100.0 fL Mean Corpuscular Hemoglobin 31.1 28.0-32.0 pg Mean Corpuscular Hemoglobin Concent 31.6 L 32.0-36.0 g/dL Red Cell Distribution Width 16.3 H 11.8-14.3 % Platelet Count 115 L 140-450 10^3/uL Mean Platelet Volume 8.8 6.9-10.8 fL Neutrophils (%) (Auto) 80.9 H 37.0-80.0 % Lymphocytes (%) (Auto) 8.1 L 10.0-50.0 % Monocytes (%) (Auto) 8.7 0.0-12.0 % Eosinophils (%) (Auto) 1.8 0.0-7.0 % Basophils (%) (Auto) 0.5 0.0-2.0 % Neutrophils # (Auto) 6.0 1.6-8.6 10 ^3/uL Lymphocytes # (Auto) 0.6 0.4-5.4 10 ^3/uL Monocytes # (Auto) 0.7 0-1.3 10 ^3/uL Eosinophils # (Auto) 0.1 0-0.8 10 ^3/uL Basophils # (Auto) 0 0-0.2 10 ^3/uL Nucleated Red Blood Cells 0.0 % Sodium Level 142 136-145 mmol/L Potassium Level 3.3 L 3.5-5.1 mmol/L Chloride Level 104 98-107 mmol/L Carbon Dioxide Level 25 20-31 mmol/L Anion Gap 13 5-15 Blood Urea Nitrogen 43 H 9-23 mg/dL Creatinine 6.85 H 0.700-1.30 mg/dL Glomerular Filtration Rate Calc 9 >90 mL/min BUN/Creatinine Ratio 6.3 L 10.0-20.0 Serum Glucose 93 74-106 mg/dL Calcium Level 7.9 L 8.7-10.4 mg/dL B-Type Natriuretic Peptide 1232.11 0-100 pg/mL Assessment End-stage renal disease on hemodialysis Unresponsiveness concerning for cardiac arrest Decompensated heart failure with ejection fraction less than 25% Diabetes with severe diabetic nephropathy Severe peripheral artery disease Recommend cardiac evaluation full workup Avoid hypotension Renal diet , dm2 diet Insulin as per hospital guidelines for diabetes Next hemodialysis treatment will be scheduled tomorrow Continue with diuretics due to residual urinary output Given diminished cardiac function likely patient can not tolerate large ultrafiltration goals we will need very strict low-salt fluid-restricted diet Plan discussed with: Patient VAISHALI SAMAYOA MD Sep 27, 2025 11:27
--- NOTE | 2025-09-27 13:08 | DVHPN2 ---
Reviewed: Care Plan, H&P, Labs, Medications, Previous Orders, Radiology Changes from previous H/P or p: No Changes Eyes: No Pain, No Vision change, No Conjunctivae inflammation, No Eyelid inflammation, No Other, No Redness ENT: No Ear pain, No Ear discharge, No Nose pain, No Nose discharge, No Nose congestion, No Mouth pain, No Mouth swelling, No Throat pain, No Throat swelling, No Other Cardiovascular: Chest Pain; No Palpitations, No Orthopnea, No Paroxysmal Noc. Dyspnea, No Edema, No Lt Headedness, No Other Respiratory: No Cough, No Dry, No Shortness of breath, No SOB with excertion, No Wheezing, No Hemoptysis, No Pleuritic Pain, No Sputum, No Other Gastrointestinal: No Nausea, No Vomiting, No Abdominal Pain, No Diarrhea, No Constipation, No Melena, No Hematochezia, No Other Genitourinary: No Dysuria, No Frequency, No Incontinence, No Hematuria, No Retention; Other (On hemodialysis) Musculoskeletal: No other, No neck pain, No shoulder pain, No arm pain, No back pain, No hand pain, No leg pain, No foot pain Skin: No Rash, No Lesions, No Jaundice, No Bruising, No Other Objective Vitals Vital Signs Date Time Temp Pulse Resp B/P (MAP) Pulse Ox O2 Delivery O2 Flow Rate FiO2 09/27/25: 110/64 09/27/25 10:00 60 09/27/25 08:00 Nasal Cannula* 2 28 09/27/25 08:00 98.4 10 96 98.4 Intake/Output Intake and Output 09/27/25 07:00 Intake Total 50 ml Balance 50 ml Intake IV Total 50 ml Medications Current Medications Medications Dose Ordered Sig/Esteban Route Start Time Stop Time Status Last Admin Dose Admin Carvedilol 12.5 mg Q12HR PO 09/26/25 22:00 09/26/25 23:48 12.5 MG Famotidine 20 mg DAILY IV 09/27/25 10:00 09/27/25 11: 20 MG Furosemide 40 mg DAILY IV 09/27/25 10:00 09/27/25 11:25 40 MG Amlodipine Besylate 5 mg DAILY PO 09/27/25 10:00 Gabapentin 300 mg BID PO 09/26/25 22:00 09/27/25 11:25 300 MG Diagnostic Test (Pha) 1 strip ACHS 09/26/25 22:00 09/27/25 11:46 1 STRIP Insulin Human Regular ACHS SC 09/26/25 22:00 Dextrose 50 ml UD PRN IV 09/26/25 21:15 Sodium Chloride 10 ml Q8HR IV 09/26/25 22:00 09/27/25 06:02 10 ML Acetaminophen/ Hydrocodone Bitart 1 tab Q4HP PRN PO 09/26/25 21:15 09/27/25 09:39 1 TAB Ondansetron HCl 4 mg Q4HP PRN IV 09/26/25 21:15 Docusate Sodium 100 mg BIDPRN PRN PO 09/26/25 21:15 Acetaminophen 650 mg Q6HP PRN PO 09/26/25 21:15 Nitroglycerin 0.4 mg Q5MINP PRN SL 09/26/25 21:15 Morphine Sulfate 2 mg Q30M PRN IV 09/26/25 21:15 Laboratory Results Laboratory Tests 09/27/25 02:14 Chemistry Test 09/26/25 13:30 09/27/25 02:14 Calcium Level 7.9 mg/dL (8.7-10.4) L 7.7 mg/dL (8.7-10.4) L Albumin 3.0 g/dL (3.2-4.8) L Total Protein 6.4 g/dL (5.7-8.2) Cardiac Markers Test 09/26/25 13:30 B-Type Natriuretic Peptide 1232.11 pg/mL (0-100) LFT Test 09/27/25 02:14 Alanine Aminotransferase (ALT) 15 U/L (7-40) Alkaline Phosphatase 143 U/L (46-116) H Aspartate Amino Transferase (AST) 16 U/L (13-40) Total Bilirubin 0.2 mg/dL (0.2-1.0) Urinalysis Test 09/27/25 04:30 Urine Color Light-yellow (Yellow) Urine Clarity Clear (Clear) Urine pH 6.5 (5.0-9.0) Urine Specific [place] 1.012 (1.001-1.035) Urine Protein 3+ (Negative) H Urine Ketones Negative (Negative) Urine Blood Trace /uL (Negative) H Urine Nitrite Negative (Negative) Urine Bilirubin Negative (Negative) Urine Urobilinogen Normal mg/dL (Negative) Urine Leukocyte Esterase Trace /uL (Negative) Urine RBC 1 /hpf (0 - 3) Urine Microscopic WBC 4 /HPF (0-3) H Urine Squamous Epithelial Cells Few /hpf (<5) Urine Bacteria Few /hpf (None Seen) H Urine Glucose 1+ mg/dL (Normal) H Labs and/or images reviewed: Labs reviewed by me, Image(s) reviewed by me Assessment/Plan Assessment/Plan Acute syncopal episode at the dialysis center Cardiac arrest status post CPR at the dialysis center ESRD on hemodialysis: Consult for client services director Hypotension: Amlodipine Coreg Peripheral neuropathy gabapentin Acute on chronic congestive heart failure exacerbation BNP 1232: Lasix History of CVA Anemia of chronic disease Diabetes History of pacemaker Time spent 70 minutes Advanced care planning time 22 minutes Patient is full code Plan discussed with: Patient Date of Service: Sep 27, 2025 Billing Provider: VIVI BARROS MD Common Visit Codes: [id number] CARE 30-74 MIN VIVI BARROS MD Sep 27, 2025 13:08
[2025-09-27 16:46] VITALS: BP 135/87; PULSE 60; RESP 20; TEMP 97.6; O2SAT 99
[2025-09-27 17:00] VITALS: BP 146/72; PULSE 60; RESP 18; TEMP 97.3; O2SAT 100
[2025-09-27 20:00] VITALS: PULSE 60; RESP 17; O2SAT 95
[2025-09-27 21:09] VITALS: BP 111/54; PULSE 60; RESP 17; TEMP 97.7; O2SAT 95
[2025-09-27] MEDS: ACETAMINOPHEN 325 MG TAB PO PRN (21:25)
[2025-09-28] VITALS (8 sets, daily range): BP systolic 101–144; BP diastolic 55–84; PULSE 60–98; RESP 16–20; TEMP 97.5–98.7; O2SAT 95–99
[2025-09-28 05:28] LABS: Hematocrit 28.1 % (41.0-53.0); Hemoglobin 9.0 g/dL (13.5-17.5); Mean Corpuscular Hemoglobin 31.2 pg (28.0-32.0); Mean Corpuscular Volume 97.5 fL (80.0-100.0); Nucleated Red Blood Cells % 0.1 %
[2025-09-28 05:40] LABS: Chloride 102 mmol/L (98-107); Potassium 4.2 mmol/L (3.5-5.1); Sodium 141 mmol/L (136-145)
[2025-09-28 05:41] LABS: Anion Gap 12 (5-15); Carbon Dioxide 27 mmol/L (20-31)
[2025-09-28 05:45] LABS: Calcium 7.8 mg/dL (8.7-10.4)
[2025-09-28 05:46] LABS: Glucose 97 mg/dL (74-106)
[2025-09-28 05:47] LABS: BUN/Creatinine Ratio 7.6 (10.0-20.0)
[2025-09-28 05:48] LABS: Blood Urea Nitrogen 55 mg/dL (9-23)
[2025-09-28] MEDS: SODIUM CHL 0.9% 1000 ML BAG XX ONE (07:00)
--- NOTE | 2025-09-28 10:26 | DVHPN2 ---
Reviewed: Care Plan, H&P, Labs, Medications, Previous Orders, Radiology Changes from previous H/P or p: No Changes Eyes: No Pain, No Vision change, No Conjunctivae inflammation, No Eyelid inflammation, No Other, No Redness ENT: No Ear pain, No Ear discharge, No Nose pain, No Nose discharge, No Nose congestion, No Mouth pain, No Mouth swelling, No Throat pain, No Throat swelling, No Other Cardiovascular: Chest Pain; No Palpitations, No Orthopnea, No Paroxysmal Noc. Dyspnea, No Edema, No Lt Headedness, No Other Respiratory: No Cough, No Dry, No Shortness of breath, No SOB with excertion, No Wheezing, No Hemoptysis, No Pleuritic Pain, No Sputum, No Other Gastrointestinal: No Nausea, No Vomiting, No Abdominal Pain, No Diarrhea, No Constipation, No Melena, No Hematochezia, No Other Genitourinary: No Dysuria, No Frequency, No Incontinence, No Hematuria, No Retention; Other (On hemodialysis) Musculoskeletal: No other, No neck pain, No shoulder pain, No arm pain, No back pain, No hand pain, No leg pain, No foot pain Skin: No Rash, No Lesions, No Jaundice, No Bruising, No Other Objective Vitals Vital Signs Date Time Temp Pulse Resp B/P (MAP) Pulse Ox O2 Delivery O2 Flow Rate FiO2 09/28/25 09:00 98.7 60 20 116/60 (78) 99 98.7 09/27/25 20:00 Nasal Cannula* 2 28 Intake/Output Intake and Output 09/28/25 07:00 Intake Total 800 ml Output Total 100 ml Balance 700 ml Intake Oral 800 ml Output Urine Total 100 ml # Bowel Movements 1 Medications Current Medications Medications Dose Ordered Sig/Esteban Route Start Time Stop Time Status Last Admin Dose Admin Carvedilol 12.5 mg Q12HR PO 09/26/25 22:00 09/27/25 21:14 12.5 MG Famotidine 20 mg DAILY IV 09/27/25 10:00 09/28/25 09:00 20 MG Furosemide 40 mg DAILY IV 09/27/25 10:00 09/27/25 11:25 40 MG Amlodipine Besylate 5 mg DAILY PO 09/27/25 10:00 Gabapentin 300 mg BID PO 09/26/25 22:00 09/28/25 09:00 300 MG Diagnostic Test (Pha) 1 strip ACHS 09/26/25 22:00 09/28/25 05:34 1 STRIP Insulin Human Regular ACHS SC 09/26/25 22:00 Dextrose 50 ml UD PRN IV 09/26/25 21:15 Sodium Chloride 10 ml Q8HR IV 09/26/25 22:00 09/28/25 05:34 10 ML Acetaminophen/ Hydrocodone Bitart 1 tab Q4HP PRN PO 09/26/25 21:15 09/27/25 09:39 1 TAB Ondansetron HCl 4 mg Q4HP PRN IV 09/26/25 21:15 Docusate Sodium 100 mg BIDPRN PRN PO 09/26/25 21:15 Acetaminophen 650 mg Q6HP PRN PO 09/26/25 21:15 09/27/25 21:25 650 MG Nitroglycerin 0.4 mg Q5MINP PRN SL 09/26/25 21:15 Morphine Sulfate 2 mg Q30M PRN IV 09/26/25 21:15 Laboratory Results Laboratory Tests 09/28/25 04:33 Chemistry Test 09/28/25 04:33 Calcium Level 7.8 mg/dL (8.7-10.4) L Urinalysis Test 09/27/25 04:30 Urine Color Light-yellow (Yellow) Urine Clarity Clear (Clear) Urine pH 6.5 (5.0-9.0) Urine Specific [place] 1.012 (1.001-1.035) Urine Protein 3+ (Negative) H Urine Ketones Negative (Negative) Urine Blood Trace /uL (Negative) H Urine Nitrite Negative (Negative) Urine Bilirubin Negative (Negative) Urine Urobilinogen Normal mg/dL (Negative) Urine Leukocyte Esterase Trace /uL (Negative) Urine RBC 1 /hpf (0 - 3) Urine Microscopic WBC 4 /HPF (0-3) H Urine Squamous Epithelial Cells Few /hpf (<5) Urine Bacteria Few /hpf (None Seen) H Urine Glucose 1+ mg/dL (Normal) H Labs and/or images reviewed: Labs reviewed by me, Image(s) reviewed by me Assessment/Plan Assessment/Plan Acute syncopal episode at the dialysis center Cardiac arrest status post CPR at the dialysis center ESRD on hemodialysis: Consult for transport tank technician Dr Constantino Hypotension: Amlodipine Coreg Peripheral neuropathy gabapentin Acute on chronic congestive heart failure exacerbation BNP 1232: Lasix History of CVA Anemia of chronic disease Diabetes History of pacemaker: Cardiology consult for possible pacemaker interrogation Time spent 50 minutes Advanced care planning time 22 minutes Patient is full code Plan discussed with: Patient My Orders Orders - VIVI BARROS MD Procedure Category Date Status Time * Wound Consult CONS 09/28/25 Transmitted Date of Service: Sep 28, 2025 Billing Provider: VIVI BARROS MD Common Visit Codes: [id number] INP/OBS CARE(HIGH) VIVI BARROS MD Sep 28, 2025 10:26
--- NOTE | 2025-09-28 11:12 | DVHPN2 ---
Progress Note Date Seen: Sep 28, 2025 Medical Necessity Reason Pt with a Central, PICC or Fol: No Subjective Patient reports: No new complaints Other Systems: Patient seen and examined by myself today in follow-up Patient examined hemodialysis, blood pressure stable Objective vital signs Vital Sign Date Time Temp Pulse Resp B/P (MAP) Pulse Ox O2 Delivery O2 Flow Rate FiO2 09/28/25 09:00 98.6 98 20 101/55 (70) 97 98.6 09/27/25 20:00 Nasal Cannula* 2 28 Total Intake and Output 09/27/25 09/27/25 09/28/25 15:00 23:00 07:00 Intake Total 800 ml Output Total 100 ml Balance 700 ml medications Current Medications Medications Dose Ordered Sig/Esteban Route Start Time Stop Time Status Last Admin Dose Admin Carvedilol 12.5 mg Q12HR PO 09/26/25 22:00 09/27/25 21:14 12.5 MG Famotidine 20 mg DAILY IV 09/27/25 10:00 09/28/25 09:00 20 MG Furosemide 40 mg DAILY IV 09/27/25 10:00 09/27/25 11:25 40 MG Amlodipine Besylate 5 mg DAILY PO 09/27/25 10:00 Gabapentin 300 mg BID PO 09/26/25 22:00 09/28/25 09:00 300 MG Diagnostic Test (Pha) 1 strip ACHS 09/26/25 22:00 09/28/25 05:34 1 STRIP Insulin Human Regular ACHS SC 09/26/25 22:00 Dextrose 50 ml UD PRN IV 09/26/25 21:15 Sodium Chloride 10 ml Q8HR IV 09/26/25 22:00 09/28/25 05:34 10 ML Acetaminophen/ Hydrocodone Bitart 1 tab Q4HP PRN PO 09/26/25 21:15 09/27/25 09:39 1 TAB Ondansetron HCl 4 mg Q4HP PRN IV 09/26/25 21:15 Docusate Sodium 100 mg BIDPRN PRN PO 09/26/25 21:15 Acetaminophen 650 mg Q6HP PRN PO 09/26/25 21:15 09/27/25 21:25 650 MG Nitroglycerin 0.4 mg Q5MINP PRN SL 09/26/25 21:15 Morphine Sulfate 2 mg Q30M PRN IV 09/26/25 21:15 Examination: LUNGS:Normal, CVS:Normal, MSK:Normal laboratory and microbiology Laboratory Tests 09/28/25 04:33 Test 09/28/25 04:33 Range/Units Serum Glucose 97 74-106 mg/dL Problem List/Assessment/Plan Problem List/Assessment/Plan End-stage renal disease on hemodialysis Hypotensive episode on hemodialysis Decompensated heart failure with ejection fraction less than 25% Diabetes with severe diabetic nephropathy Severe peripheral artery disease Anemia of chronic kidney disease Encephalomalacia Recommendations Continue with UF 1-2 L as tolerated Epogen 73992 subQ 3 times weekly Strict I&Os Renal diet Discontinue amlodipine We will continue to follow Plan discussed with: Patient AKASH BARRAZA MD Sep 28, 2025 11:12
[2025-09-28 12:04] LABS: Hepatitis B Surface Antigen Negative (Negative)
[2025-09-28 12:14] LABS: Magnesium 2.3 mg/dL (1.6-2.6)
[2025-09-28 12:19] LABS: Hepatitis C Antibody Negative (Negative)
[2025-09-28] MEDS: ALBUMIN 25% 100 ML IV ONE ×2 (13:12→14:06)
--- NOTE | 2025-09-28 14:48 | CONS ---
Pharmacy Clinical Information: CHF FALL OUT From Heart Failure Fallout Report on CQM Application, Theo Zamora, 59-year-old male with PMH of CHF, HTN, DM, CKF on HD TTHS, and CVA. His home medications for heart failure include metoprolol, furosemide, and lisinopril. Inpatient medications include carvedilol and furosemide. Per 2024 ADA guidelines, patients all ages with diabetes and ASCVD, it is recommended to be started on high-intensity statin such as atorvastatin 40-80mg. Last lipid panel was done 12/2023 with LDL of 103. May consider new lipid panel and initiating lipid-lowering agent if/when clinically appropriate. Due to CKF, patient not a candidate for SGLT2i. JOSÉ MIGUEL WILSON [facility] RESIDENT Sep 28, 2025 14:48
[2025-09-28] MEDS ORDERED: ASPI-543 PO (16:08)
[2025-09-28] MEDS: EPOETIN ALFA-EPBX 10,000 UNIT/1ML VIAL SC ONE (20:19)
[2025-09-29] VITALS (8 sets, daily range): BP systolic 107–129; BP diastolic 62–73; PULSE 60–70; RESP 17–20; TEMP 97.5–97.9; O2SAT 96–98
--- NOTE | 2025-09-29 00:05 | DVHINCON2 ---
Date of service: Sep 28, 2025 Referring Physician Pepe Reason for Consultation Cardiac arrest History of Present Illness This is a 59-year-old male with past medical history of chronic kidney failure on hemodialysis T, TH, SAT, CHF, CVA, diabetes mellitus, and hypertension who was brought in by EMS on 09/26/25 for evaluation of syncopal episode. Patient was at dialysis center receiving scheduled dialysis session when he had witnessed cardiac arrest and CPR, AED was activated by bystanders. When EMS arrived on the scene, patient was found alert oriented x4, GCS 15, chest wall pain, dyspnea, and moaning in pain. Patients initial labs showed WBC 7.5, hemoglobin 9.8, hematocrit 30.9, platelets 115, sodium 142, potassium 3.3, BUN 43, creatinine 6.85, GFR 9, glucose 93, calcium 7.9, troponin 20, BNP 1232.11, blood pressure 142/80. CT head showed no acute intracranial hemorrhage or mass effect. EKG upon arrival showed paced rhythm at 88. Chest x-ray showed bilateral patchy airspace opacities and small bilateral pleural effusions. Patient was admitted to the hospital. I am asked to consult on this patient. Family History: Cerebrovascular accident (CVA) G8 FATHER, Diabetes mellitus G8 MOTHER G8 FATHER, Allergies: Coded Allergies: NO KNOWN ALLERGIES (Unverified , 01/14/24) Home Meds Active Scripts Yeast (S. Boulardii)(S. Cerevi (Florastor) 250 Mg Cap, 250 MG PO DAILY for 14 Days, #14 CAP Prov:YOBANI GOETZ RESIDENT 08/19/25 Vancomycin Hcl (Vancocin Hcl) 250 Mg Cap, 250 MG PO QID for 14 Days, #56 CAP Prov:YOBANI GOETZ RESIDENT 08/19/25 Reported Medications Pregabalin (Lyrica) 50 Mg Cap, 50 MG PO DAILY, CAP 09/28/25 Aspirin (Aspir-Low) 81 Mg Tab, 81 MG PO DAILY for 30 Days, MG 09/28/25 Gentamicin Sulfate (Gentamicin Sulfate) 0.1 % Cre, 1 APPLIC TOP TID for 30 Days, #30 08/17/25 Amlodipine Besylate (Amlodipine Besylate) 2.5 Mg Tab, 1 TAB PO DAILY for 90 Days, #90 08/17/25 Oxcarbazepine (Trileptal) 150 Mg Tab, 1 TAB PO BID for 90 Days, #180 08/17/25 Insulin Lispro (Admelog Solostar) 100 Unit/Ml Inj, UNITS SC UD for 30 Days, #15 08/17/25 Mupirocin (Pseudomonas Fluores (Mupirocin) 2 % Oin, 1 APPLIC TOP BID for 44 Days, #44 08/17/25 Allopurinol (Allopurinol) 300 Mg Tab, 1 TAB PO DAILY for 90 Days, #90 08/17/25 Furosemide (Furosemide) 40 Mg Tab, 2 TAB PO DAILY for 90 Days, #180 06/01/25 Finerenone (Kerendia) 10 Mg Tab, 1 TAB PO DAILY 01/15/24 Metoprolol Succinate (Metoprolol Succinate Er) 50 Mg Tab, 1 TAB PO DAILY for 90 Days, #90 01/14/24 Famotidine (PEPCID TABLET) 20 Mg Tb, 1 TAB PO BID 01/14/24 Metolazone (Metolazone) 5 Mg Tab, 1 TAB PO DAILY 01/14/24 Sodium Zirconium Cyclosilicate (Lokelma) 10 Gm Masood, 1 PKT PO DAILY for 30 Days, #30 01/14/24 Lisinopril (Lisinopril) 40 Mg Tab, 1 TAB PO DAILY 01/14/24 Gabapentin (Gabapentin) 300 Mg Cap, 1 CAP PO DAILY for 90 Days, #90 01/14/24 Current Medications Current Medications Medications (Trade) Dose Ordered Sig/Esteban Route PRN Reason Start Time Stop Time Status Last Admin Metoprolol Succinate (Toprol Xl) 50 mg DAILY PO 09/29/25 10:00 Future Hold Aspirin (Ecotrin Enteric Coated Tablet) 81 mg DAILY PO 09/29/25 10:00 Pregabalin (Lyrica Capsule) 50 mg DAILY PO 09/29/25 10:00 Review of Systems Constitutional: Yes: Weakness; No: Fever, Chills, Sweats, Malaise, Other Eyes: No: Pain, Vision change, Conjunctivae inflammation, Eyelid inflammation, Other, Redness ENT: No: Ear pain, Ear discharge, Nose pain, Nose discharge, Nose congestion, Mouth pain, Mouth swelling, Throat pain, Throat swelling, Other Respiratory: No: Cough, Dry, Shortness of breath, SOB with excertion, Wheezing, Hemoptysis, Pleuritic Pain, Sputum, Wheezing, Other Cardiovascular: Chest Pain; No: Palpitations, Orthopnea, Paroxysmal Noc. Dyspnea, Edema, Lt Headedness, Other Gastrointestinal: No: Nausea, Vomiting, Abdominal Pain, Diarrhea, Constipation, Melena, Hematochezia, Other Genitourinary: No Dysuria, No Frequency, No Incontinence, No Hematuria, No Retention; Other (On hemodialysis) Musculoskeletal: No: other, neck pain, shoulder pain, arm pain, back pain, hand pain, leg pain, foot pain Skin: No: Rash, Lesions, Jaundice, Bruising, Other Neurological: No: Weakness, Numbness, Incoordination, Change in speech, Confusion, Seizures, Other Vital Signs Vital Signs Date Time Temp Pulse Resp B/P (MAP) Pulse Ox O2 Delivery O2 Flow Rate FiO2 09/28/25 21:11 98.7 73 16 123/69 (87) 95 98.7 09/28/25 20:00 Nasal Cannula* 2 28 Physical Exam GENERAL: Alert and oriented x 3. No acute distress. Morbidly obese. EYES: PERRL, EOMI. Anicteric. HENT: Moist mucous membranes. LUNGS: Clear to auscultation bilaterally. CARDIOVASCULAR: Regular rate and rhythm. ABDOMEN: Soft, non-tender and non-distended. EXTREMITIES: No edema. NEUROLOGIC: No focal neurological deficits. SKIN: Warm, dry. Labs/Diagnostic Data Labs Test 09/28/25 21:01 09/28/25 04:33 09/27/25 04:30 09/27/25 02:14 Range/Units POC Glucose 127 H 70-106 mg/dl White Blood Count 5.1 4.4-10.8 10^3/uL Red Blood Count 2.88 L 4.5-5.90 10^6/uL Hemoglobin 9.0 L 13.5-17.5 g/dL Hematocrit 28.1 L 41.0-53.0 % Mean Corpuscular Volume 97.5 80.0-100.0 fL Mean Corpuscular Hemoglobin 31.2 28.0-32.0 pg Mean Corpuscular Hemoglobin Concent 32.0 32.0-36.0 g/dL Red Cell Distribution Width 16.4 H 11.8-14.3 % Platelet Count 125 L 140-450 10^3/uL Mean Platelet Volume 9.3 6.9-10.8 fL Neutrophils (%) (Auto) 72.1 37.0-80.0 % Lymphocytes (%) (Auto) 11.9 10.0-50.0 % Monocytes (%) (Auto) 12.5 H 0.0-12.0 % Eosinophils (%) (Auto) 2.5 0.0-7.0 % Basophils (%) (Auto) 1.0 0.0-2.0 % Neutrophils # (Auto) 3.7 1.6-8.6 10 ^3/uL Lymphocytes # (Auto) 0.6 0.4-5.4 10 ^3/uL Monocytes # (Auto) 0.6 0-1.3 10 ^3/uL Eosinophils # (Auto) 0.1 0-0.8 10 ^3/uL Basophils # (Auto) 0 0-0.2 10 ^3/uL Nucleated Red Blood Cells 0.1 % Sodium Level 141 136-145 mmol/L Potassium Level 4.2 3.5-5.1 mmol/L Chloride Level 102 98-107 mmol/L Carbon Dioxide Level 27 20-31 mmol/L Anion Gap 12 5-15 Blood Urea Nitrogen 55 H 9-23 mg/dL Creatinine 7.19 H 0.700-1.30 mg/dL Glomerular Filtration Rate Calc 8 >90 mL/min BUN/Creatinine Ratio 7.6 L 10.0-20.0 Serum Glucose 97 74-106 mg/dL Calcium Level 7.8 L 8.7-10.4 mg/dL Phosphorus Level 6.5 H 2.4-5.1 mg/dL Magnesium Level 2.3 1.6-2.6 mg/dL Vitamin D 25-Hydroxy 29.0 L 30.0-100 ng/mL Parathyroid Hormone (Intact) 361.3 H 18.4-80.1 pg/mL Hepatitis A IgM Antibody Negative Hepatitis B Surface Antigen Negative Negative Hepatitis B Core IgM Antibody Negative Negative Hepatitis C Antibody Negative Negative Urine Color Light-yellow Yellow Urine Clarity Clear Clear Urine pH 6.5 5.0-9.0 Urine Specific [place] 1.012 1.001-1.035 Urine Protein 3+ H Negative Urine Ketones Negative Negative Urine Blood Trace H Negative /uL Urine Nitrite Negative Negative Urine Bilirubin Negative Negative Urine Urobilinogen Normal Negative mg/dL Urine Leukocyte Esterase Trace Negative /uL Urine RBC 1 0 - 3 /hpf Urine Microscopic WBC 4 H 0-3 /HPF Urine Squamous Epithelial Cells Few <5 /hpf Urine Bacteria Few H None Seen /hpf Urine Glucose 1+ H Normal mg/dL Total Bilirubin 0.2 0.2-1.0 mg/dL Aspartate Amino Transferase (AST) 16 13-40 U/L Alanine Aminotransferase (ALT) 15 7-40 U/L Alkaline Phosphatase 143 H 46-116 U/L Total Protein 6.4 5.7-8.2 g/dL Albumin 3.0 L 3.2-4.8 g/dL Test 09/26/25 16:33 09/26/25 13:30 Range/Units Troponin I High Sensitivity 23 </=54 ng/L B-Type Natriuretic Peptide 1232.11 0-100 pg/mL Assessment Acute syncopal episode. Cardiac arrest status post CPR. ESRD on hemodialysis. Hypertension. Peripheral neuropathy. Acute on chronic congestive heart failure exacerbation. History of CVA. Anemia of chronic disease. Diabetes. History of pacemaker. Morbidly obese. Plan/Recommendation I agree with your ongoing assessment and care of plan. Morphine and [place] for pain management. Aspirin, Metoprolol. Coreg. Diuretics with Lasix. Nitro SL. Additional plan as per the hospital course. A total of 45 minutes was spent reviewing the patient record, examining the patient, making a diagnostic and therapeutic plan, discussing this plan with medical personnel, following up on diagnostic studies and following the patient for clinical stability excluding any and all procedures. At least 50% of this time was spent in direct, [id number] contact. Plan discussed with: Patient MATTHEW CIFUENTES MD Sep 29, 2025 00:05
[2025-09-29 07:03] LABS: Hemoglobin 8.5 g/dL (13.5-17.5)
[2025-09-29 07:05] LABS: Hematocrit 26.4 % (41.0-53.0); Mean Corpuscular Hemoglobin 31.0 pg (28.0-32.0); Mean Corpuscular Volume 96.9 fL (80.0-100.0); Nucleated Red Blood Cells % 0.1 %
[2025-09-29 07:14] LABS: Alanine Aminotransferase 10 U/L (7-40); Anion Gap 10 (5-15); BUN/Creatinine Ratio 6.4 (10.0-20.0); Carbon Dioxide 28 mmol/L (20-31); Chloride 102 mmol/L (98-107); Potassium 3.8 mmol/L (3.5-5.1); Sodium 140 mmol/L (136-145)
[2025-09-29 07:15] LABS: Total Protein 6.9 g/dL (5.7-8.2)
[2025-09-29 07:22] LABS: Albumin 3.1 g/dL (3.2-4.8); Alkaline Phosphatase 153 U/L (46-116); Bilirubin, Total 0.3 mg/dL (0.2-1.0); Blood Urea Nitrogen 41 mg/dL (9-23); Calcium 8.2 mg/dL (8.7-10.4); Glucose 74 mg/dL (74-106)
[2025-09-29] MEDS: ASPirin-EC 81 mg tab PO SCH (10:00)
[2025-09-29] MEDS ORDERED: METOPROLOL SUCCINATE XL 50 MG TAB PO SCH (10:00)
[2025-09-29] MEDS: PREGABALIN 25 MG CAP PO SCH (10:15)
--- NOTE | 2025-09-29 11:31 | DVHPN2 ---
Reviewed: Care Plan, H&P, Labs, Medications, Previous Orders, Radiology Changes from previous H/P or p: No Changes Eyes: No Pain, No Vision change, No Conjunctivae inflammation, No Eyelid inflammation, No Other, No Redness ENT: No Ear pain, No Ear discharge, No Nose pain, No Nose discharge, No Nose congestion, No Mouth pain, No Mouth swelling, No Throat pain, No Throat swelling, No Other Cardiovascular: Chest Pain; No Palpitations, No Orthopnea, No Paroxysmal Noc. Dyspnea, No Edema, No Lt Headedness, No Other Respiratory: No Cough, No Dry, No Shortness of breath, No SOB with excertion, No Wheezing, No Hemoptysis, No Pleuritic Pain, No Sputum, No Other Gastrointestinal: No Nausea, No Vomiting, No Abdominal Pain, No Diarrhea, No Constipation, No Melena, No Hematochezia, No Other Genitourinary: No Dysuria, No Frequency, No Incontinence, No Hematuria, No Retention; Other (On hemodialysis) Musculoskeletal: No other, No neck pain, No shoulder pain, No arm pain, No back pain, No hand pain, No leg pain, No foot pain Skin: No Rash, No Lesions, No Jaundice, No Bruising, No Other Objective Vitals Vital Signs Date Time Temp Pulse Resp B/P (MAP) Pulse Ox O2 Delivery O2 Flow Rate FiO2 09/29/25 10:19 118/66 09/29/25 10:16 60 09/29/25 09:00 97.8 20 97 97.8 09/29/25 07:45 Nasal Cannula* 2 28 Intake/Output Intake and Output 09/29/25 07:00 Intake Total 840 ml Output Total 50 ml Balance 790 ml Intake Oral 840 ml Output Urine Total 50 ml Medications Current Medications Medications Dose Ordered Sig/Esteban Route Start Time Stop Time Status Last Admin Dose Admin Carvedilol 12.5 mg Q12HR PO 09/26/25 22:00 09/29/25 10:16 12.5 MG Famotidine 20 mg DAILY IV 09/27/25 10:00 09/29/25 10:18 20 MG Furosemide 40 mg DAILY IV 09/27/25 10:00 09/29/25 10:19 40 MG Gabapentin 300 mg BID PO 09/26/25 22:00 09/29/25 10:17 300 MG Diagnostic Test (Pha) 1 strip ACHS 09/26/25 22:00 09/29/25 06:18 1 STRIP Insulin Human Regular ACHS SC 09/26/25 22:00 09/28/25 18:34 2 UNITS Dextrose 50 ml UD PRN IV 09/26/25 21:15 Sodium Chloride 10 ml Q8HR IV 09/26/25 22:00 09/29/25 05:31 10 ML Acetaminophen/ Hydrocodone Bitart 1 tab Q4HP PRN PO 09/26/25 21:15 09/29/25 10:18 1 TAB Ondansetron HCl 4 mg Q4HP PRN IV 09/26/25 21:15 Docusate Sodium 100 mg BIDPRN PRN PO 09/26/25 21:15 Acetaminophen 650 mg Q6HP PRN PO 09/26/25 21:15 09/28/25 19:50 650 MG Nitroglycerin 0.4 mg Q5MINP PRN SL 09/26/25 21:15 Morphine Sulfate 2 mg Q30M PRN IV 09/26/25 21:15 Metoprolol Succinate 50 mg DAILY PO 09/29/25 10:00 Hold Aspirin 81 mg DAILY PO 09/29/25 10:00 Pregabalin 50 mg DAILY PO 09/29/25 10:00 09/29/25 10:15 50 MG Laboratory Results Laboratory Tests 09/29/25 06:01 Chemistry Test 09/29/25 06:01 Albumin 3.1 g/dL (3.2-4.8) L Calcium Level 8.2 mg/dL (8.7-10.4) L Total Protein 6.9 g/dL (5.7-8.2) LFT Test 09/29/25 06:01 Alanine Aminotransferase (ALT) 10 U/L (7-40) Alkaline Phosphatase 153 U/L (46-116) H Aspartate Amino Transferase (AST) 14 U/L (13-40) Total Bilirubin 0.3 mg/dL (0.2-1.0) Urinalysis Test 09/27/25 04:30 Urine Color Light-yellow (Yellow) Urine Clarity Clear (Clear) Urine pH 6.5 (5.0-9.0) Urine Specific [place] 1.012 (1.001-1.035) Urine Protein 3+ (Negative) H Urine Ketones Negative (Negative) Urine Blood Trace /uL (Negative) H Urine Nitrite Negative (Negative) Urine Bilirubin Negative (Negative) Urine Urobilinogen Normal mg/dL (Negative) Urine Leukocyte Esterase Trace /uL (Negative) Urine RBC 1 /hpf (0 - 3) Urine Microscopic WBC 4 /HPF (0-3) H Urine Squamous Epithelial Cells Few /hpf (<5) Urine Bacteria Few /hpf (None Seen) H Urine Glucose 1+ mg/dL (Normal) H Labs and/or images reviewed: Labs reviewed by me, Image(s) reviewed by me Assessment/Plan Assessment/Plan Acute syncopal episode at the dialysis center Cardiac arrest status post CPR at the dialysis center cardiology consult by Dr. Farris appreciated ESRD on hemodialysis: Consult for fraternity adviser Dr Constantino Hypertension: Amlodipine Coreg Peripheral neuropathy gabapentin Acute on chronic congestive heart failure exacerbation BNP 1232: Lasix History of CVA Anemia of chronic disease Diabetes History of pacemaker: Cardiology consult for possible pacemaker interrogation Thrombocytopenia platelets 46 K Time spent 50 minutes Advanced care planning time 22 minutes Patient is full code Plan discussed with: Patient My Orders Orders - VIVI BARROS MD Procedure Category Date Status Time Complete Blood Count LAB 09/30/25 Verified 05:00 Complete Blood Count LAB 10/01/25 Verified 05:00 Complete Blood Count LAB 10/02/25 Verified 05:00 Comprehensive LAB 09/30/25 Verified Metabolic Panel 05:00 Comprehensive LAB 10/01/25 Verified Metabolic Panel 05:00 Comprehensive LAB 10/02/25 Verified Metabolic Panel 05:00 Metoprolol Xl PHA 09/29/25 In Process Succinate (Toprol Xl) 10:00 Aspirin Enteric PHA 09/29/25 In Process Coated Tablet 10:00 Pregabalin Capsule PHA 09/29/25 In Process (Lyrica Capsule) 10:00 * Dietary Consult CONS 09/28/25 Transmitted 17:36 Cleanse Wound With NIXON 09/28/25 In Process Wound Clean 11:00 Date of Service: Sep 29, 2025 Billing Provider: VIVI BARROS MD Common Visit Codes: [id number] INP/OBS CARE(HIGH) VIVI BARROS MD Sep 29, 2025 11:31
[2025-09-29] MEDS: ALLOPURINOL 100 MG TAB PO ONE (14:06)
--- NOTE | 2025-09-29 15:41 | DVHPN2 ---
Progress Note Date Seen: Sep 29, 2025 Medical Necessity Reason Pt with a Central, PICC or Fol: No Subjective Patient reports: No new complaints Other Systems: Patient seen and examined by myself today in follow-up Objective vital signs Vital Sign Date Time Temp Pulse Resp B/P (MAP) Pulse Ox O2 Delivery O2 Flow Rate FiO2 09/29/25 13:00 97.5 60 18 129/68 (88) 97 97.5 09/29/25 07:45 Nasal Cannula* 2 28 Total Intake and Output 09/28/25 09/28/25 09/29/25 15:00 23:00 07:00 Intake Total 600 ml 240 ml Output Total 50 ml Balance 600 ml 190 ml medications Current Medications Medications Dose Ordered Sig/Esteban Route Start Time Stop Time Status Last Admin Dose Admin Carvedilol 12.5 mg Q12HR PO 09/26/25 22:00 09/29/25 10:16 12.5 MG Famotidine 20 mg DAILY IV 09/27/25 10:00 09/29/25 10:18 20 MG Furosemide 40 mg DAILY IV 09/27/25 10:00 09/29/25 10:19 40 MG Gabapentin 300 mg BID PO 09/26/25 22:00 09/29/25 10:17 300 MG Diagnostic Test (Pha) 1 strip ACHS 09/26/25 22:00 09/29/25 11:49 1 STRIP Insulin Human Regular ACHS SC 09/26/25 22:00 09/28/25 18:34 2 UNITS Dextrose 50 ml UD PRN IV 09/26/25 21:15 Sodium Chloride 10 ml Q8HR IV 09/26/25 22:00 09/29/25 14:06 10 ML Acetaminophen/ Hydrocodone Bitart 1 tab Q4HP PRN PO 09/26/25 21:15 09/29/25 10:18 1 TAB Ondansetron HCl 4 mg Q4HP PRN IV 09/26/25 21:15 Docusate Sodium 100 mg BIDPRN PRN PO 09/26/25 21:15 Acetaminophen 650 mg Q6HP PRN PO 09/26/25 21:15 09/28/25 19:50 650 MG Nitroglycerin 0.4 mg Q5MINP PRN SL 09/26/25 21:15 Morphine Sulfate 2 mg Q30M PRN IV 09/26/25 21:15 Aspirin 81 mg DAILY PO 09/29/25 10:00 Pregabalin 50 mg DAILY PO 09/29/25 10:00 09/29/25 10:15 50 MG Sevelamer HCl 800 mg TIDWM PO 09/29/25 18:00 Allopurinol 300 mg DAILY PO 09/30/25 10:00 Oxcarbazepine 150 mg Q12HR PO 09/29/25 22:00 Examination: LUNGS:Normal, CVS:Normal, MSK:Abnormal laboratory and microbiology Laboratory Tests 09/29/25 06:01 Test 09/29/25 06:01 Range/Units Serum Glucose 74 74-106 mg/dL Problem List/Assessment/Plan Problem List/Assessment/Plan End-stage renal disease on hemodialysis Hypotensive episode on hemodialysis Decompensated heart failure with ejection fraction less than 25% Diabetes with severe diabetic nephropathy Severe peripheral artery disease Anemia of chronic kidney disease Encephalomalacia Hyperphosphatemia Hyperparathyroidism, secondary Recommendations Hemodialysis tomorrow Epogen 40950 subQ 3 times weekly Strict I&Os Renal diet phosphate binders Calcitriol Discontinue amlodipine We will continue to follow Plan discussed with: Patient My Orders My Orders Orders - AKASH BARRAZA MD Procedure Category Date Status Time Dietary NOTICE 09/29/25 Transmitted Recommendations 13:21 Dietary Evaluation Review Comments: Nutrition Recommendation: 1) CCHO 75gm + renal standard diet 2) Pro-stat 1 pk BID 3) Nephro-nellie 1 tab daily 4) Monitor PO intake, lab values, weight trend, and I/O Expected Outcomes/Goals: Wound to improve Intake to meet >75% estimated needs FU 3-5 days AKASH BARRAZA MD Sep 29, 2025 15:41
[2025-09-29] MEDS: SEVELAMER 800 MG TAB PO SCH (18:06)
[2025-09-30] VITALS (7 sets, daily range): BP systolic 107–147; BP diastolic 57–79; PULSE 60–88; RESP 16–19; TEMP 97.7–98.9; O2SAT 97–100
--- NOTE | 2025-09-30 00:31 | DVHPN2 ---
Progress Note - Dictate Date Seen: Sep 29, 2025 Medical Necessity Reason Pt with a Central, PICC or Fol: No Subjective Patient was seen and evaluated in follow up. Patient is complaining of chest pain. He is on 2 LPM NC. Pending pacemaker interrogation. HGB 8.5, HCT 26.4, BUN 41, [employer]ES [employer]ETING DIRECTOR 6.42, CA 8.2. Telemetry reviewed. vital signs Vital Sign Date Time Temp Pulse Resp B/P (MAP) Pulse Ox O2 Delivery O2 Flow Rate FiO2 09/29/25 13:00 97.5 60 18 129/68 (88) 97 97.5 09/29/25 07:45 Nasal Cannula* 2 28 Total Intake and Output 09/28/25 09/28/25 09/29/25 15:00 23:00 07:00 Intake Total 600 ml 240 ml Output Total 50 ml Balance 600 ml 190 ml medications Current Medications Medications Dose Ordered Sig/Seteban Route Start Time Stop Time Status Last Admin Dose Admin Carvedilol 12.5 mg Q12HR PO 09/26/25 22:00 09/29/25 10:16 12.5 MG Famotidine 20 mg DAILY IV 09/27/25 10:00 09/29/25 10:18 20 MG Furosemide 40 mg DAILY IV 09/27/25 10:00 09/29/25 10:19 40 MG Gabapentin 300 mg BID PO 09/26/25 22:00 09/29/25 10:17 300 MG Diagnostic Test (Pha) 1 strip ACHS 09/26/25 22:00 09/29/25 11:49 1 STRIP Insulin Human Regular ACHS SC 09/26/25 22:00 09/28/25 18:34 2 UNITS Dextrose 50 ml UD PRN IV 09/26/25 21:15 Sodium Chloride 10 ml Q8HR IV 09/26/25 22:00 09/29/25 14:06 10 ML Acetaminophen/ Hydrocodone Bitart 1 tab Q4HP PRN PO 09/26/25 21:15 09/29/25 10:18 1 TAB Ondansetron HCl 4 mg Q4HP PRN IV 09/26/25 21:15 Docusate Sodium 100 mg BIDPRN PRN PO 09/26/25 21:15 Acetaminophen 650 mg Q6HP PRN PO 09/26/25 21:15 09/28/25 19:50 650 MG Nitroglycerin 0.4 mg Q5MINP PRN SL 09/26/25 21:15 Morphine Sulfate 2 mg Q30M PRN IV 09/26/25 21:15 Aspirin 81 mg DAILY PO 09/29/25 10:00 Pregabalin 50 mg DAILY PO 09/29/25 10:00 09/29/25 10:15 50 MG Sevelamer HCl 800 mg TIDWM PO 09/29/25 18:00 Allopurinol 300 mg DAILY PO 09/30/25 10:00 Oxcarbazepine 150 mg Q12HR PO 09/29/25 22:00 objective GENERAL: Alert and oriented x 3. No acute distress. Morbidly obese. EYES: PERRL, EOMI. Anicteric. HENT: Moist mucous membranes. LUNGS: Clear to auscultation bilaterally. CARDIOVASCULAR: Regular rate and rhythm. ABDOMEN: Soft, non-tender and non-distended. EXTREMITIES: No edema. NEUROLOGIC: No focal neurological deficits. SKIN: Warm, dry. laboratory and microbiology Laboratory Tests 09/29/25 06:01 Test 09/29/25 06:01 Range/Units Serum Glucose 74 74-106 mg/dL Problem List Acute syncopal episode. Cardiac arrest status post CPR. ESRD on hemodialysis. Hypertension. Peripheral neuropathy. Acute on chronic congestive heart failure exacerbation. History of CVA. Anemia of chronic disease. Diabetes. History of pacemaker. Morbidly obese. Assessment/Plan Continued all current supportive medical care. Morphine and [place] for pain management. Aspirin, Metoprolol. Coreg. Diuretics with Lasix. Nitro SL. Additional plan as per the hospital course. Dietary Evaluation Review Comments: Nutrition Recommendation: 1) CCHO 75gm + renal standard diet 2) Pro-stat 1 pk BID 3) Nephro-nellie 1 tab daily 4) Monitor PO intake, lab values, weight trend, and I/O Expected Outcomes/Goals: Wound to improve Intake to meet >75% estimated needs FU 3-5 days Plan discussed with: Patient MATTHEW CIFUENTES MD Sep 29, 2025 15:24
[2025-09-30 06:35] LABS: Hematocrit 27.6 % (41.0-53.0); Hemoglobin 8.8 g/dL (13.5-17.5); Mean Corpuscular Hemoglobin 31.1 pg (28.0-32.0); Mean Corpuscular Volume 97.2 fL (80.0-100.0); Nucleated Red Blood Cells % 0.1 %
[2025-09-30 06:53] LABS: Alanine Aminotransferase 14 U/L (7-40); Albumin 3.3 g/dL (3.2-4.8); Anion Gap 13 (5-15); BUN/Creatinine Ratio 7.0 (10.0-20.0); Carbon Dioxide 28 mmol/L (20-31); Chloride 100 mmol/L (98-107); Glucose 98 mg/dL (74-106); Potassium 4.1 mmol/L (3.5-5.1); Sodium 141 mmol/L (136-145); Total Protein 6.9 g/dL (5.7-8.2)
[2025-09-30 06:56] LABS: Alkaline Phosphatase 164 U/L (46-116); Bilirubin, Total 0.2 mg/dL (0.2-1.0); Blood Urea Nitrogen 49 mg/dL (9-23); Calcium 8.1 mg/dL (8.7-10.4)
[2025-09-30] MEDS: ALLOPURINOL 100 MG TAB PO SCH (08:53)
--- NOTE | 2025-09-30 12:02 | ECG ---
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
[2025-09-30] MEDS: B-COMPLEX W/ C & FOLIC ACID(NEPHROVITE TAB) PO SCH (12:08)
--- NOTE | 2025-09-30 13:35 | DVHPN2 ---
Reviewed: Care Plan, H&P, Labs, Medications, Previous Orders, Radiology Changes from previous H/P or p: No Changes Eyes: No Pain, No Vision change, No Conjunctivae inflammation, No Eyelid inflammation, No Other, No Redness ENT: No Ear pain, No Ear discharge, No Nose pain, No Nose discharge, No Nose congestion, No Mouth pain, No Mouth swelling, No Throat pain, No Throat swelling, No Other Cardiovascular: Chest Pain; No Palpitations, No Orthopnea, No Paroxysmal Noc. Dyspnea, No Edema, No Lt Headedness, No Other Respiratory: No Cough, No Dry, No Shortness of breath, No SOB with excertion, No Wheezing, No Hemoptysis, No Pleuritic Pain, No Sputum, No Other Gastrointestinal: No Nausea, No Vomiting, No Abdominal Pain, No Diarrhea, No Constipation, No Melena, No Hematochezia, No Other Genitourinary: No Dysuria, No Frequency, No Incontinence, No Hematuria, No Retention; Other (On hemodialysis) Musculoskeletal: No other, No neck pain, No shoulder pain, No arm pain, No back pain, No hand pain, No leg pain, No foot pain Skin: No Rash, No Lesions, No Jaundice, No Bruising, No Other Objective Vitals Vital Signs Date Time Temp Pulse Resp B/P (MAP) Pulse Ox O2 Delivery O2 Flow Rate FiO2 09/30/25 12:36 98.9 61 19 147/57 (87) 100 98.9 09/30/25 08:30 Nasal Cannula* 2 28 Intake/Output Intake and Output 09/30/25 07:00 Intake Total 1100 ml Output Total 250 ml Balance 850 ml Intake Oral 1100 ml Output Urine Total 250 ml # Bowel Movements 1 Medications Current Medications Medications Dose Ordered Sig/Esteban Route Start Time Stop Time Status Last Admin Dose Admin Carvedilol 12.5 mg Q12HR PO 09/26/25 22:00 09/29/25 22:21 12.5 MG Famotidine 20 mg DAILY IV 09/27/25 10:00 09/30/25 08:47 20 MG Furosemide 40 mg DAILY IV 09/27/25 10:00 09/29/25 10:19 40 MG Diagnostic Test (Pha) 1 strip ACHS 09/26/25 22:00 09/30/25 12:09 1 STRIP Insulin Human Regular ACHS SC 09/26/25 22:00 12/25 18:34 2 UNITS Dextrose 50 ml UD PRN IV 09/26/25 21:15 Sodium Chloride 10 ml Q8HR IV 09/26/25 22:00 09/30/25 05:06 10 ML Acetaminophen/ Hydrocodone Bitart 1 tab Q4HP PRN PO 09/26/25 21:15 09/30/25 08:47 1 TAB Ondansetron HCl 4 mg Q4HP PRN IV 09/26/25 21:15 Docusate Sodium 100 mg BIDPRN PRN PO 09/26/25 21:15 Acetaminophen 650 mg Q6HP PRN PO 09/26/25 21:15 09/28/25 19:50 650 MG Nitroglycerin 0.4 mg Q5MINP PRN SL 09/26/25 21:15 Morphine Sulfate 2 mg Q30M PRN IV 09/26/25 21:15 Aspirin 81 mg DAILY PO 09/29/25 10:00 Pregabalin 50 mg DAILY PO 09/29/25 10:00 09/30/25 08:48 50 MG Sevelamer HCl 800 mg TIDWM PO 09/29/25 18:00 09/30/25 12:09 800 MG Allopurinol 300 mg DAILY PO 09/30/25 10:00 09/30/25 08:53 300 MG Oxcarbazepine 450 mg Q12HR PO 09/29/25 22:00 09/30/25 08:49 450 MG Amino Acid Protein 30 ml BID PO 09/30/25 22:00 Multivit/Ca Carb/ B Cmplx/FA/Prenat 1 tab DAILY PO 09/30/25 11:12 09/30/25 12:08 1 TAB Laboratory Results Laboratory Tests 09/30/25 05:38 Chemistry Test 09/30/25 05:38 Albumin 3.3 g/dL (3.2-4.8) Calcium Level 8.1 mg/dL (8.7-10.4) L Total Protein 6.9 g/dL (5.7-8.2) LFT Test 09/30/25 05:38 Alanine Aminotransferase (ALT) 14 U/L (7-40) Alkaline Phosphatase 164 U/L (46-116) H Aspartate Amino Transferase (AST) 15 U/L (13-40) Total Bilirubin 0.2 mg/dL (0.2-1.0) Urinalysis Test 09/27/25 04:30 Urine Color Light-yellow (Yellow) Urine Clarity Clear (Clear) Urine pH 6.5 (5.0-9.0) Urine Specific [place] 1.012 (1.001-1.035) Urine Protein 3+ (Negative) H Urine Ketones Negative (Negative) Urine Blood Trace /uL (Negative) H Urine Nitrite Negative (Negative) Urine Bilirubin Negative (Negative) Urine Urobilinogen Normal mg/dL (Negative) Urine Leukocyte Esterase Trace /uL (Negative) Urine RBC 1 /hpf (0 - 3) Urine Microscopic WBC 4 /HPF (0-3) H Urine Squamous Epithelial Cells Few /hpf (<5) Urine Bacteria Few /hpf (None Seen) H Urine Glucose 1+ mg/dL (Normal) H Labs and/or images reviewed: Labs reviewed by me, Image(s) reviewed by me Assessment/Plan Assessment/Plan Acute syncopal episode at the dialysis center Cardiac arrest status post CPR at the dialysis center cardiology consult by Dr. Farris appreciated ESRD on hemodialysis: Consult for senior counsel Dr Constantino Hypertension: Amlodipine Coreg Peripheral neuropathy gabapentin Acute on chronic congestive heart failure exacerbation BNP 1232: Lasix History of CVA Anemia of chronic disease Diabetes History of pacemaker: Pacemaker interrogated working well. Thrombocytopenia platelets 46 K Time spent 50 minutes Advanced care planning time 22 minutes Patient is full code Tomorrow on home health Plan discussed with: Patient My Orders Orders - VIVI BARROS MD Procedure Category Date Status Time Sevelamer (Renagel) PHA 09/29/25 In Process 18:00 Allopurinol Tablet PHA 09/30/25 In Process (Zyloprim Tablet) 10:00 Oxcarbazepine Tablet PHA 09/29/25 In Process (Trileptal Tablet) 22:00 Date of Service: Sep 30, 2025 Billing Provider: VIVI BARROS MD Common Visit Codes: [id number] INP/OBS CARE(HIGH) VIVI BARROS MD Sep 30, 2025 13:35
--- NOTE | 2025-09-30 16:41 | DVHPN2 ---
Progress Note Date Seen: Sep 30, 2025 Medical Necessity Reason Pt with a Central, PICC or Fol: No Subjective Patient reports: No new complaints Other Systems: Patient seen and examined by myself today in f/u Objective vital signs Vital Sign Date Time Temp Pulse Resp B/P (MAP) Pulse Ox O2 Delivery O2 Flow Rate FiO2 09/30/25 13:45 147/57 09/30/25 13:45 61 09/30/25 12:36 98.9 19 100 98.9 09/30/25 08:30 Nasal Cannula* 2 28 Total Intake and Output 09/29/25 09/29/25 09/30/25 15:00 23:00 07:00 Intake Total 800 ml 300 ml Output Total 200 ml 50 ml Balance 600 ml 250 ml medications Current Medications Medications Dose Ordered Sig/Esteban Route Start Time Stop Time Status Last Admin Dose Admin Carvedilol 12.5 mg Q12HR PO 09/26/25 22:00 09/30/25 13:45 12.5 MG Famotidine 20 mg DAILY IV 09/27/25 10:00 09/30/25 08:47 20 MG Furosemide 40 mg DAILY IV 09/27/25 10:00 09/30/25 13:45 40 MG Diagnostic Test (Pha) 1 strip ACHS 09/26/25 22:00 09/30/25 12:09 1 STRIP Insulin Human Regular ACHS SC 09/26/25 22:00 09/28/25 18:34 2 UNITS Dextrose 50 ml UD PRN IV 09/26/25 21:15 Sodium Chloride 10 ml Q8HR IV 09/26/25 22:00 09/30/25 13:47 10 ML Acetaminophen/ Hydrocodone Bitart 1 tab Q4HP PRN PO 09/26/25 21:15 09/30/25 08:47 1 TAB Ondansetron HCl 4 mg Q4HP PRN IV 09/26/25 21:15 Docusate Sodium 100 mg BIDPRN PRN PO 09/26/25 21:15 Acetaminophen 650 mg Q6HP PRN PO 09/26/25 21:15 09/28/25 19:50 650 MG Nitroglycerin 0.4 mg Q5MINP PRN SL 09/26/25 21:15 Morphine Sulfate 2 mg Q30M PRN IV 09/26/25 21:15 Aspirin 81 mg DAILY PO 09/29/25 10:00 Pregabalin 50 mg DAILY PO 09/29/25 10:00 09/30/25 08:48 50 MG Sevelamer HCl 800 mg TIDWM PO 09/29/25 18:00 09/30/25 12:09 800 MG Allopurinol 300 mg DAILY PO 09/30/25 10:00 09/30/25 08:53 300 MG Oxcarbazepine 450 mg Q12HR PO 09/29/25 22:00 09/30/25 08:49 450 MG Amino Acid Protein 30 ml BID PO 09/30/25 22:00 Multivit/Ca Carb/ B Cmplx/FA/Prenat 1 tab DAILY PO 09/30/25 11:12 09/30/25 12:08 1 TAB Examination: LUNGS:Normal, CVS:Normal, MSK:Abnormal laboratory and microbiology Laboratory Tests 09/30/25 05:38 Test 09/30/25 05:38 Range/Units Serum Glucose 98 74-106 mg/dL Problem List/Assessment/Plan Problem List/Assessment/Plan End-stage renal disease on hemodialysis Hypotensive episode on hemodialysis Decompensated heart failure with ejection fraction less than 25% Diabetes with severe diabetic nephropathy Severe peripheral artery disease Anemia of chronic kidney disease Encephalomalacia Hyperphosphatemia Hyperparathyroidism, secondary Recommendations Hemodialysis tomorrow Epogen 05878 subQ 3 times weekly Strict I&Os Renal diet phosphate binders Calcitriol Discontinue amlodipine We will continue to follow Plan discussed with: Patient My Orders My Orders Orders - AKASH BARRAZA MD Procedure Category Date Status Time Renal DIET 09/30/25 Transmitted Standard(2gna,3gk,Lopho) Lunch Amino Acids-Protein PHA 09/30/25 In Process Hydrolysat (Pro-Stat 22:00 B-Complex W/ C & PHA 09/30/25 In Process Folic Tablet 11:12 Hemodialysis Orders ORDERS 10/01/25 Verified 07:00 Dietary Evaluation Review Comments: Nutrition Recommendation: 1) CCHO 75gm + renal standard diet 2) Pro-stat 1 pk BID 3) Nephro-nellie 1 tab daily 4) Monitor PO intake, lab values, weight trend, and I/O Expected Outcomes/Goals: Wound to improve Intake to meet >75% estimated needs FU 3-5 days AKASH BARRAZA MD Sep 30, 2025 16:40
[2025-09-30] MEDS: EPOETIN ALFA-EPBX 10,000 UNIT/1ML VIAL SC ONE (21:00)
[2025-09-30] MEDS: Pro-Stat SF 30ml Vanilla PO SCH (21:31)
[2025-10-01] VITALS (46 sets, daily range): BP systolic 50–157; BP diastolic 20–107; PULSE 60–100; RESP 11–58; TEMP 96.6–98.7; O2SAT 0–100
--- NOTE | 2025-10-01 01:06 | DVHPN2 ---
Progress Note - Dictate Date Seen: Sep 30, 2025 Medical Necessity Reason Pt with a Central, PICC or Fol: No Subjective Patient was seen and evaluated in follow up. Patient is complaining of chest pain. He is on 2 LPM NC. HGB 8.8, HCT 27.6, BUN 49, LINE PULLER 7.03, CA 8.1. Telemetry reviewed. vital signs Vital Sign Date Time Temp Pulse Resp B/P (MAP) Pulse Ox O2 Delivery O2 Flow Rate FiO2 09/30/25 13:45 147/57 09/30/25 13:45 61 09/30/25 12:36 98.9 19 100 98.9 09/30/25 08:30 Nasal Cannula* 2 28 Total Intake and Output 09/29/25 09/29/25 09/30/25 15:00 23:00 07:00 Intake Total 800 ml 300 ml Output Total 200 ml 50 ml Balance 600 ml 250 ml medications Current Medications Medications Dose Ordered Sig/Esteban Route Start Time Stop Time Status Last Admin Dose Admin Carvedilol 12.5 mg Q12HR PO 09/26/25 22:00 09/30/25 13:45 12.5 MG Famotidine 20 mg DAILY IV 09/27/25 10:00 09/30/25 08:47 20 MG Furosemide 40 mg DAILY IV 09/27/25 10:00 09/30/25 13:45 40 MG Diagnostic Test (Pha) 1 strip ACHS 09/26/25 22:00 09/30/25 12:09 1 STRIP Insulin Human Regular ACHS SC 09/26/25 22:00 09/28/25 18:34 2 UNITS Dextrose 50 ml UD PRN IV 09/26/25 21:15 Sodium Chloride 10 ml Q8HR IV 09/26/25 22:00 09/30/25 13:47 10 ML Acetaminophen/ Hydrocodone Bitart 1 tab Q4HP PRN PO 09/26/25 21:15 09/30/25 08:47 1 TAB Ondansetron HCl 4 mg Q4HP PRN IV 09/26/25 21:15 Docusate Sodium 100 mg BIDPRN PRN PO 09/26/25 21:15 Acetaminophen 650 mg Q6HP PRN PO 09/26/25 21:15 09/28/25 19:50 650 MG Nitroglycerin 0.4 mg Q5MINP PRN SL 09/26/25 21:15 Morphine Sulfate 2 mg Q30M PRN IV 09/26/25 21:15 Aspirin 81 mg DAILY PO 09/29/25 10:00 Pregabalin 50 mg DAILY PO 09/29/25 10:00 09/30/25 08:48 50 MG Sevelamer HCl 800 mg TIDWM PO 09/29/25 18:00 09/30/25 12:09 800 MG Allopurinol 300 mg DAILY PO 09/30/25 10:00 09/30/25 08:53 300 MG Oxcarbazepine 450 mg Q12HR PO 09/29/25 22:00 09/30/25 08:49 450 MG Amino Acid Protein 30 ml BID PO 09/30/25 22:00 Multivit/Ca Carb/ B Cmplx/FA/Prenat 1 tab DAILY PO 09/30/25 11:12 09/30/25 12:08 1 TAB objective GENERAL: Alert and oriented x 3. No acute distress. Morbidly obese. EYES: PERRL, EOMI. Anicteric. HENT: Moist mucous membranes. LUNGS: Clear to auscultation bilaterally. CARDIOVASCULAR: Regular rate and rhythm. ABDOMEN: Soft, non-tender and non-distended. EXTREMITIES: No edema. NEUROLOGIC: No focal neurological deficits. SKIN: Warm, dry. laboratory and microbiology Laboratory Tests 09/30/25 05:38 Test 09/30/25 05:38 Range/Units Serum Glucose 98 74-106 mg/dL Problem List Acute syncopal episode. Cardiac arrest status post CPR. ESRD on hemodialysis. Hypertension. Peripheral neuropathy. Acute on chronic congestive heart failure exacerbation. History of CVA. Anemia of chronic disease. Diabetes. History of pacemaker. Morbidly obese. Assessment/Plan Continued all current supportive medical care. Morphine and [place] for pain management. Aspirin. Coreg. Diuretics with Lasix. Nitro SL. Additional plan as per the hospital course. Dietary Evaluation Review Comments: Nutrition Recommendation: 1) CCHO 75gm + renal standard diet 2) Pro-stat 1 pk BID 3) Nephro-nellie 1 tab daily 4) Monitor PO intake, lab values, weight trend, and I/O Expected Outcomes/Goals: Wound to improve Intake to meet >75% estimated needs FU 3-5 days Plan discussed with: Patient MATTHEW CIFUENTES MD Sep 30, 2025 14:16
[2025-10-01 06:44] LABS: Hematocrit 27.5 % (41.0-53.0); Hemoglobin 8.8 g/dL (13.5-17.5); Mean Corpuscular Hemoglobin 31.4 pg (28.0-32.0); Mean Corpuscular Volume 98.7 fL (80.0-100.0); Nucleated Red Blood Cells % 0.1 %
[2025-10-01 06:54] LABS: Alanine Aminotransferase 12 U/L (7-40); Albumin 3.2 g/dL (3.2-4.8); Anion Gap 12 (5-15); BUN/Creatinine Ratio 6.8 (10.0-20.0); Carbon Dioxide 28 mmol/L (20-31); Chloride 100 mmol/L (98-107); Glucose 100 mg/dL (74-106); Potassium 4.6 mmol/L (3.5-5.1); Sodium 140 mmol/L (136-145); Total Protein 6.9 g/dL (5.7-8.2)
[2025-10-01 07:04] LABS: Alkaline Phosphatase 166 U/L (46-116); Bilirubin, Total 0.2 mg/dL (0.2-1.0); Blood Urea Nitrogen 51 mg/dL (9-23); Calcium 8.1 mg/dL (8.7-10.4)
--- NOTE | 2025-10-01 10:08 | DVHPN2 ---
Reviewed: Care Plan, H&P, Labs, Medications, Previous Orders, Radiology Changes from previous H/P or p: No Changes Eyes: No Pain, No Vision change, No Conjunctivae inflammation, No Eyelid inflammation, No Other, No Redness ENT: No Ear pain, No Ear discharge, No Nose pain, No Nose discharge, No Nose congestion, No Mouth pain, No Mouth swelling, No Throat pain, No Throat swelling, No Other Cardiovascular: Chest Pain; No Palpitations, No Orthopnea, No Paroxysmal Noc. Dyspnea, No Edema, No Lt Headedness, No Other Respiratory: No Cough, No Dry, No Shortness of breath, No SOB with excertion, No Wheezing, No Hemoptysis, No Pleuritic Pain, No Sputum, No Other Gastrointestinal: No Nausea, No Vomiting, No Abdominal Pain, No Diarrhea, No Constipation, No Melena, No Hematochezia, No Other Genitourinary: No Dysuria, No Frequency, No Incontinence, No Hematuria, No Retention; Other (On hemodialysis) Musculoskeletal: No other, No neck pain, No shoulder pain, No arm pain, No back pain, No hand pain, No leg pain, No foot pain Skin: No Rash, No Lesions, No Jaundice, No Bruising, No Other Objective Vitals Vital Signs Date Time Temp Pulse Resp B/P (MAP) Pulse Ox O2 Delivery O2 Flow Rate FiO2 10/01/25 05:00 98.3 60 18 110/63 (79) 99 98.3 09/30/25 20:00 Nasal Cannula* 2 28 Intake/Output Intake and Output 10/01/25 07:00 Intake Total 200 ml Balance 200 ml Intake Oral 200 ml Medications Current Medications Medications Dose Ordered Sig/Esteban Route Start Time Stop Time Status Last Admin Dose Admin Carvedilol 12.5 mg Q12HR PO 09/26/25 22:00 09/30/25 21:30 12.5 MG Famotidine 20 mg DAILY IV 09/27/25 10:00 09/30/25 08:47 20 MG Furosemide 40 mg DAILY IV 09/27/25 10:00 09/30/25 13:45 40 MG Diagnostic Test (Pha) 1 strip ACHS 09/26/25 22:00 10/01/25 05:27 1 STRIP Insulin Human Regular ACHS SC 09/26/25 22:00 09/28/25 18:34 2 UNITS Dextrose 50 ml UD PRN IV 09/26/25 21:15 Sodium Chloride 10 ml Q8HR IV 09/26/25 22:00 10/01/25 05:27 10 ML Acetaminophen/ Hydrocodone Bitart 1 tab Q4HP PRN PO 09/26/25 21:15 10/01/25 06:52 1 TAB Ondansetron HCl 4 mg Q4HP PRN IV 09/26/25 21:15 Docusate Sodium 100 mg BIDPRN PRN PO 09/26/25 21:15 Acetaminophen 650 mg Q6HP PRN PO 09/26/25 21:15 09/28/25 19:50 650 MG Nitroglycerin 0.4 mg Q5MINP PRN SL 09/26/25 21:15 Morphine Sulfate 2 mg Q30M PRN IV 09/26/25 21:15 Aspirin 81 mg DAILY PO 09/29/25 10:00 Pregabalin 50 mg DAILY PO 09/29/25 10:00 09/30/25 08:48 50 MG Sevelamer HCl 800 mg TIDWM PO 09/29/25 18:00 09/30/25 17:48 800 MG Allopurinol 300 mg DAILY PO 09/30/25 10:00 09/30/25 08:53 300 MG Oxcarbazepine 450 mg Q12HR PO 09/29/25 22:00 09/30/25 21:31 450 MG Amino Acid Protein 30 ml BID PO 09/30/25 22:00 Multivit/Ca Carb/ B Cmplx/FA/Prenat 1 tab DAILY PO 09/30/25 11:12 09/30/25 12:08 1 TAB Laboratory Results Laboratory Tests 10/01/25 05:38 Chemistry Test 10/01/25 05:38 Albumin 3.2 g/dL (3.2-4.8) Calcium Level 8.1 mg/dL (8.7-10.4) L Total Protein 6.9 g/dL (5.7-8.2) LFT Test 10/01/25 05:38 Alanine Aminotransferase (ALT) 12 U/L (7-40) Alkaline Phosphatase 166 U/L (46-116) H Aspartate Amino Transferase (AST) 15 U/L (13-40) Total Bilirubin 0.2 mg/dL (0.2-1.0) Urinalysis Test 09/27/25 04:30 Urine Color Light-yellow (Yellow) Urine Clarity Clear (Clear) Urine pH 6.5 (5.0-9.0) Urine Specific [place] 1.012 (1.001-1.035) Urine Protein 3+ (Negative) H Urine Ketones Negative (Negative) Urine Blood Trace /uL (Negative) H Urine Nitrite Negative (Negative) Urine Bilirubin Negative (Negative) Urine Urobilinogen Normal mg/dL (Negative) Urine Leukocyte Esterase Trace /uL (Negative) Urine RBC 1 /hpf (0 - 3) Urine Microscopic WBC 4 /HPF (0-3) H Urine Squamous Epithelial Cells Few /hpf (<5) Urine Bacteria Few /hpf (None Seen) H Urine Glucose 1+ mg/dL (Normal) H Labs and/or images reviewed: Labs reviewed by me, Image(s) reviewed by me Assessment/Plan Assessment/Plan Acute syncopal episode at the dialysis center Cardiac arrest status post CPR at the dialysis center cardiology consult by Dr. Farris appreciated ESRD on hemodialysis: Consult for event marketing manager Dr Constantino Hypertension: Amlodipine Coreg Peripheral neuropathy gabapentin Acute on chronic congestive heart failure exacerbation BNP 1232: Lasix History of CVA Anemia of chronic disease Diabetes History of pacemaker: Pacemaker interrogated working well. Thrombocytopenia platelets 46 K Cellulitis bilateral lower legs : Rocephin 1 g IV daily, clindamycin 300 mg PO TID Midline ordered Stage II Sacral decubitus ulcer present on admission [facility] Time spent 50 minutes Advanced care planning time 22 minutes : Claudia [phone] bedside Patient is full code Tomorrow on home health Plan discussed with: Patient Date of Service: Oct 01, 2025 Billing Provider: VIVI BARROS MD Common Visit Codes: [id number] INP/OBS CARE(HIGH) VIVI BARROS MD Oct 01, 2025 10:08
[2025-10-01] MEDS: CLINDAMYCIN HCL 150 MG CAP PO SCH (14:00)
--- NOTE | 2025-10-01 14:18 | DVHPN2 ---
Progress Note Date Seen: Oct 01, 2025 Medical Necessity Reason Pt with a Central, PICC or Fol: No Subjective Patient reports: No new complaints Other Systems: Patient examined hemodialysis, blood pressure stable Objective vital signs Vital Sign Date Time Temp Pulse Resp B/P (MAP) Pulse Ox O2 Delivery O2 Flow Rate FiO2 10/01/25 05:00 98.3 60 18 110/63 (79) 99 98.3 09/30/25 20:00 Nasal Cannula* 2 28 Total Intake and Output 09/30/25 09/30/25 10/01/25 15:00 23:00 07:00 Intake Total 0 ml 200 ml Balance 0 ml 200 ml medications Current Medications Medications Dose Ordered Sig/Esteban Route Start Time Stop Time Status Last Admin Dose Admin Carvedilol 12.5 mg Q12HR PO 09/26/25 22:00 09/30/25 21:30 12.5 MG Famotidine 20 mg DAILY IV 09/27/25 10:00 09/30/25 08:47 20 MG Furosemide 40 mg DAILY IV 09/27/25 10:00 09/30/25 13:45 40 MG Diagnostic Test (Pha) 1 strip ACHS 09/26/25 22:00 10/01/25 05:27 1 STRIP Insulin Human Regular ACHS SC 09/26/25 22:00 09/28/25 18:34 2 UNITS Dextrose 50 ml UD PRN IV 09/26/25 21:15 Sodium Chloride 10 ml Q8HR IV 09/26/25 22:00 10/01/25 05:27 10 ML Acetaminophen/ Hydrocodone Bitart 1 tab Q4HP PRN PO 09/26/25 21:15 10/01/25 06:52 1 TAB Ondansetron HCl 4 mg Q4HP PRN IV 09/26/25 21:15 Docusate Sodium 100 mg BIDPRN PRN PO 09/26/25 21:15 Acetaminophen 650 mg Q6HP PRN PO 09/26/25 21:15 09/28/25 19:50 650 MG Nitroglycerin 0.4 mg Q5MINP PRN SL 09/26/25 21:15 Morphine Sulfate 2 mg Q30M PRN IV 09/26/25 21:15 Aspirin 81 mg DAILY PO 09/29/25 10:00 Pregabalin 50 mg DAILY PO 09/29/25 10:00 09/30/25 08:48 50 MG Sevelamer HCl 800 mg TIDWM PO 09/29/25 18:00 09/30/25 17:48 800 MG Allopurinol 300 mg DAILY PO 09/30/25 10:00 09/30/25 08:53 300 MG Oxcarbazepine 450 mg Q12HR PO 09/29/25 22:00 09/30/25 21:31 450 MG Amino Acid Protein 30 ml BID PO 09/30/25 22:00 Multivit/Ca Carb/ B Cmplx/FA/Prenat 1 tab DAILY PO 09/30/25 11:12 09/30/25 12:08 1 TAB Ceftriaxone Sodium 50 ml @ 100 mls/hr DAILY@09 IV 10/02/25 09:00 Clindamycin HCl 450 mg Q8HR PO 10/01/25 14:00 Examination: LUNGS:Normal, CVS:Normal, MSK:Abnormal laboratory and microbiology Laboratory Tests 10/01/25 05:38 Test 10/01/25 05:38 Range/Units Serum Glucose 100 74-106 mg/dL Problem List/Assessment/Plan Problem List/Assessment/Plan End-stage renal disease on hemodialysis Hypotensive episode on hemodialysis Decompensated heart failure with ejection fraction less than 25% Diabetes with severe diabetic nephropathy Severe peripheral artery disease Anemia of chronic kidney disease Encephalomalacia Hyperphosphatemia Hyperparathyroidism, secondary Recommendations Continue with UF to 3 L as tolerated Epogen 55240 subQ 3 times weekly Strict I&Os Renal diet phosphate binders Calcitriol Discontinue amlodipine We will continue to follow Plan discussed with: Patient My Orders My Orders Orders - AKASH BARRAZA MD Procedure Category Date Status Time Hemodialysis Orders ORDERS 10/01/25 Transmitted 07:00 Dietary Evaluation Review Comments: Nutrition Recommendation: 1) CCHO 75gm + renal standard diet 2) Pro-stat 1 pk BID 3) Nephro-nellie 1 tab daily 4) Monitor PO intake, lab values, weight trend, and I/O Expected Outcomes/Goals: Wound to improve Intake to meet >75% estimated needs FU 3-5 days AKASH BARRAZA MD Oct 01, 2025 14:18
[2025-10-01] MEDS: NOREPINEPHRINE 8 MG/250ML KIT 250 ML IV ONE (14:34)
[2025-10-01] MEDS: ROCURONIUM 10MG/ML 10ML VIAL IV ONE ×2 (14:34→15:41)
[2025-10-01] MEDS: ETOMIDATE (2MG/ML) 20ML VIAL IV ONE ×2 (14:34→15:42)
[2025-10-01] MEDS: fentaNYL Drip 2500mCg/250mlNS 250 ML IV ONE (14:34)
[2025-10-01] MEDS: PROPOFOL 100 ML IV ONE (14:58)
[2025-10-01] MEDS: NOREPINEPHRINE 8 MG/250ML KIT 250 ML IV SCH (15:00)
--- NOTE | 2025-10-01 15:29 | DVH ---
CHEST RADIOGRAPH Indication: intubation Technique: Single frontal view of the chest was obtained COMPARISON: XY CHEST PORTABLE on DOS: 09/26/25, XY CHEST PORTABLE on DOS: 08/16/25, XY CHEST PORTABLE on DOS: 06/02/25, XY CHEST PORTABLE on DOS: 05/31/25, XY CHEST PORTABLE on DOS: 02/12/24 FINDINGS: Lines and Tubes: Endotracheal tube tip projects at the level of the tiburcio. Enteric catheter courses below the level of the diaphragm and terminates beyond the inferior margin of the image. Right permCath tip projects over the cavoatrial junction. Lungs: Moderate multifocal bilateral pulmonary airspace disease and pulmonary vascular congestion. Pleura: No effusion. No pneumothorax. Cardiomediastinal contours: Unremarkable Bones: Unremarkable IMPRESSION: 1. Endotracheal tube tip projects at the level of the tiburcio. Recommend retraction by 2 cm. 2. Remaining Lines and tubes as above. 3. Moderate multifocal bilateral pulmonary airspace disease and pulmonary vascular congestion.
[2025-10-01 15:30] LABS: Hematocrit 28.0 % (41.0-53.0); Hemoglobin 8.6 g/dL (13.5-17.5); Mean Corpuscular Hemoglobin 31.4 pg (28.0-32.0); Mean Corpuscular Volume 102.6 fL (80.0-100.0)
[2025-10-01] MEDS: EPINEPHrine HCL 250 ML IV ONE (15:33)
[2025-10-01] MEDS ORDERED: EPINEPHrine HCL 1 MG/10 ML SYRG IV ONE (15:37)
[2025-10-01] MEDS ORDERED: SODIUM BICARB 8.4% 50Meq/50ml SYR INJ IV ONE (15:38)
[2025-10-01] MEDS: EPINEPHrine HCL 250 ML IV SCH (15:39)
[2025-10-01 15:44] LABS: Alanine Aminotransferase 16 U/L (7-40); Anion Gap 13 (5-15); BUN/Creatinine Ratio 6.1 (10.0-20.0); Calcium 9.2 mg/dL (8.7-10.4); Carbon Dioxide 25 mmol/L (20-31); Chloride 104 mmol/L (98-107); Glucose 104 mg/dL (74-106); Magnesium 2.2 mg/dL (1.6-2.6); Potassium 5.0 mmol/L (3.5-5.1); Sodium 142 mmol/L (136-145); Total Protein 6.3 g/dL (5.7-8.2)
[2025-10-01 15:49] LABS: Albumin 2.8 g/dL (3.2-4.8); Alkaline Phosphatase 170 U/L (46-116); Bilirubin, Total 0.2 mg/dL (0.2-1.0); Blood Urea Nitrogen 33 mg/dL (9-23)
[2025-10-01 16:01] LABS: Lactic Acid w/Reflex 5.7 mmol/L (0.4-2.0)
[2025-10-01] MEDS: SODIUM CHL 0.9% 1000 ML BAG XX ONE (16:09)
[2025-10-01 16:24] LABS: Total Cells Counted 100.0 (100)
[2025-10-01 16:25] LABS: Anisocytosis Slight; Macrocytosis Slight
[2025-10-01] MEDS: SODIUM BICARB 50mEq/50ml Vial 100 ML in D5W 5% 1,000 ML IV SCH (16:34)
[2025-10-01] MEDS: LACTATED RINGER'S 1,000 ML IV ONE (16:34)
[2025-10-01] MEDS: SODIUM BICARB 8.4% 50Meq/50ml SYR Vial IV ONE (16:34)
[2025-10-01 17:07] LABS: Base Excess -1.8 mmol/L (-2.0-3.0)
[2025-10-01] MEDS: PROPOFOL 100 ML IV SCH (17:25)
[2025-10-01] MEDS: fentaNYL Drip 2500mCg/250mlNS 250 ML IV SCH (17:25)
--- NOTE | 2025-10-01 17:51 | DVHNC2 ---
Central Line Recorder of insertion practice: Exhaust Emissions Automotive Technician Occupation of security associate: Attending Physician Indication: Volume resuscitation Room prepared for procedure: Yes Exhaust Emissions Automotive Technician performed hand hygien: Yes Maximal sterile barrier precau: Mask/Eye shield, Sterile gown, Cap, Sterlie gloves, Large sterlie drape Skin Preparation: Chlorhexidine gluconate, Alcohol Insertion site: Right, Femoral Central line catheter type: [id number] dialysis Number of lumens: 3 Post Assessment: Proper placement Informed consent obtained: Yes Intubation Indication: Airway Protection Prep: Preoxygenation Pretreated with: Sedation Medicated with: Other Intubation Approach: Orotracheal Intubation size: cm (8) Informed consent obtained: Yes Other Procedure Procedure ULTRASOUND-GUIDED RIGHT INTERNAL JUGULAR CENTRAL VENOUS CANNULATION CPT Codes: 64502 (ultrasound guidance) 21409 (insertion of non-tunneled centrally inserted central venous catheter) 74737 (CXR interpretation) DATE: 10/01/2025 PHYSICIAN: Renata Otero MD PREOPERATIVE DIAGNOSIS: Cardiac arrest POSTOPERATIVE DIAGNOSIS: Cardiac arrest PROCEDURE PERFORMED: Limited Ultrasound-guided right femoral central line CvC ANESTHESIA: 2 mL of 1% lidocaine plain. ESTIMATED BLOOD LOSS: 10 cc SPECIMENS: None. COMPLICATIONS: None. INDICATIONS FOR PROCEDURE: The patient is in need of large bore IV access for administration of fluids, including blood products and vasoactive drugs, possible transvenous cardiac pacing and CVP monitoring for hemodynamic instability. DESCRIPTION OF PROCEDURE IN DETAIL: The patient was lying in the Trendelenburg position with head turned 30 degrees away from the insertion site. The skin was thoroughly sponged with chlorhexidine and allowed to dry. All persons involved were shielded with hair nets, face masks and sterile gowns. With sterile-gloved hands the right neck area was draped with the large disposable sterile field provided in the pre-manufactured kit. The skin and subcutaneous tissues superficial to the RIGHT internal jugular vein were anesthetized with 2 mL of 1% lidocaine. The RIGHT internal jugular vein was identified on ultrasound from the angle of the mandible down into the supraclavicular fossa using the linear ultrasound probe in the transverse orientation. The carotid artery was identified and avoided utilizing color-flow. The internal jugular vein was then placed in the center of the ultrasound field and compressed for patency. A movement artifact was identified as the needle was advanced through the skin and advanced toward the vessel. A real time hyperechoic signal revealed visualization of vascular needle entry into the lumen as blood was noted to flashback in the syringe. The needle was then held in place while the guide wire was advanced. The needle was then removed. Direct visualization of guide wire location within the vein was noted on ultrasound indicating proper placement and was document in the electronic medical record chart. A skin dilator was advanced over the guidewire and removed, and the triple-lumen catheter was then advanced over the guide wire into proper position. The guide wire was removed and discarded. The ports were aspirated which showed good blood return and then carefully flushed with normal saline. The catheter was stabilized and sutured to the skin with 2-0 silk at 4 anchor points. A sterile bio-patch and dressing was placed over the catheter, including the insertion site. The patient tolerated the procedure well. A chest x-ray was ordered for position confirmation. I reviewed the image immediately after it was taken at bedside. Post-procedure chest x-ray demonstrates the central line in the superior vena and no evidence of any pneumothorax. An image recording of the procedure accompanies the chart. =- Procedure: Endotracheal Intubation INDICATION: Acute respiratory failure, failure protection Physician: Renata Otero MD CONSENT: Emergent procedure. Implied. PROCEDURE SUMMARY: A time out was performed. My hands were washed immediately prior to the procedure. I wore a surgical cap, mask with protective eyewear, gown and gloves throughout the procedure. The patient was placed on a sliver former including continuous pulse oximetry. The patient received 20mg Etomidate and 50mg rocuronium for induction. Cricoid pressure was maintained from time induction agent was given to time of cuff balloon inflation. Using a MAC 4 Laryngoscope and a size 8.0 endotracheal tube with stylet, the patient was intubated on the 1 attempt. The stylet was removed and cuff balloon was inflated. Appropriate endotracheal tube position was confirmed by direct visualization of vocal cord passage, fogging of the tube, CO2 colometric indicator and symmetric breath sounds. The tube was secured at 25 cm at the lips. Post intubation chest x-ray is demonstrates the ETT approximately 1 cm above the tiburcio. CPT Code: 44588 Code wesly ran, PEa x3. Given calcium, multiple epinephrine, multiple bicarb ampules, RN time not very long see code details. But patient does arrest with no pulse 3 times. Poor Prognosis. Patient is intubated, have to access dialysis line at least once, right femoral line CBC inserted, A-line on right radial 2 attempts, failure. Started on bicarb drip, recommend nephrology assessment to remove acidosis. Labs done CBC CMP Mag phos lactic. Lactic returns I, significant acidosis. Likely we will need dialysis without net removal fluid. See code blue note by RN for full details. Renata Otero MD Date of Service: Oct 01, 2025 Billing Provider: RENATA TOBIAS MD Common Visit Codes: PROCEDURE ONLY Procedure Codes: [id number], 17216-PEFPYT NON-TUNNEL CV CATH, 59933- RUNNING CODE RENATA BRAGA MD Oct 01, 2025 17:51
--- NOTE | 2025-10-01 18:06 | RESUS ---
CODE BLUE ASSESSSMENT History of Events History of Events: patient receiving hemodialysis when hemodialysis nurse pressed code blue button for bradycardia and then asystole Initial Information Date: Oct 01, 2025 Time: 14: Location of Arrest: [place] Witnessed: Yes CPR started initial time: 14:19 CPR started by whom: Hospital Staff Type of arrest: Cardiac, Unwitnessed Spontaneous Respirations: No Pulse Present: No Monitoring: ECG, Pulse Oximetry Crash Cart Opened and Supplies: Yes Airway Ventilation Breathing at Onset: Assisted Oxygen Delivery Method: Ambu-Bag Artificial Ventilation: Bag/Mask Intubation Time: 14:38 Intubation Size: 8.0 cuffed Intubated by: Dr Otero Intubation Attempts: 2 Intubated orally: Yes Tube secured at: 24 CO2 indicator used: Yes Confirmation: Auscultation, Exhaled CO2 Circulation Circulation #1: Time: 14: Pulse Rate (adult): 0 Circulation Comment: aystole Circulation #2: Time: :24 Circulation Comment: asystole Circulation #3: Time: 14: Circulation Comment: ROSC Defibrillation Defbrillation : Time Defibrillator Applied: : Compressions: Manual Medications & Response Medications and Responses #1: Medication Time: 14: ADULT Medications Given ADULT: Epinephrine 1 mg Route of Administration: IV Medications and Responses #2: Medication Time: :25 ADULT Medications Given ADULT: Epinephrine 1 mg, Sodium Bacarbinate 50 meq Route of Administration: IV Nurses Notes [place] Coma Scale Eye Opening: To Pain (2) (prior to intubation ) Warner Coma Scale Verbal: Incomprehensible (2) (prior to intubation post rosc) [place] Coma Scale Motor: None (1) [place]ow Total: 8 Pupil Reaction: Sluggish Bedside Blood Glucose: 97 Nurses Notes - Comment: Obtained ROSC prior to intubation. etomidate 25 mg iv given per Dr Otero order and Rocuronium 80 mg IV given per Dr. Otero order both prior to intubation. Fentanyl drip pulled as ordered and transfered to icu room 264. Time Code Ended Time Code Ended: 14: Post Arrest Status: Ventilated Outcome of code: Successful Family notified: Yes Attending called: Yes Code Team Present: Owen Hinson PIPE INSULATOR, Tristan RN house sup, Judy AUTO BODY REPAIRER FIBERGLASS Charge, Armando RN primary, Jane chemistry technologist, Geteha RT, Angel RN, Nydia RN, Dialysis nurse Majo Post Resuscitation Neurologica Pupil Size: 3 ROSC Time of ROSC: 14:26 Date of Service: Oct 01, 2025 Billing Provider: RENATA TOBIAS MD Common Visit Codes: PROCEDURE ONLY Procedure Codes: [id number] CODE Tristan Palmer Oct 01, 2025 18:06 RENATA TOBIAS MD Oct 05, 2025 09:36
--- NOTE | 2025-10-01 18:18 | DVH ---
Date: 10/01/2025 05:37 PM Examination: XY KUB ABDOMEN SINGLE VIEW History: NGT PLACEMENT Comparison: XY ACUTE AB SERIES on DOS: 12/05/23 TECHNIQUE: Frontal views of the abdomen was obtained. FINDINGS: Nasogastric tube pick projects over the stomach. There is gaseous distention of the colon. IMPRESSION: The nasogastric tube projects over the stomach. Colonic distention
[2025-10-01] MEDS: FUROSEMIDE 40 MG/4 ML VIAL IV ONE (18:40)
--- NOTE | 2025-10-01 18:55 | DVHPN2 ---
Progress Note - Dictate Date Seen: Oct 01, 2025 Medical Necessity Reason Pt with a Central, PICC or Fol: No Subjective Patient was seen and evaluated in follow up this afternoon. Patient is on 2 LPM NC. Patient reports chest discomfort.Patient received HD today. HGB 8.8, HCT 27.5, BUN 51, HEEL SEWER 7.46, CA 8.1. Telemetry reviewed. vital signs Vital Sign Date Time Temp Pulse Resp B/P (MAP) Pulse Ox O2 Delivery O2 Flow Rate FiO2 10/01/25 05:00 98.3 60 18 110/63 (79) 99 98.3 09/30/25 20:00 Nasal Cannula* 2 28 Total Intake and Output 09/30/25 09/30/25 10/01/25 15:00 23:00 07:00 Intake Total 0 ml 200 ml Balance 0 ml 200 ml medications Current Medications Medications Dose Ordered Sig/Esteban Route Start Time Stop Time Status Last Admin Dose Admin Carvedilol 12.5 mg Q12HR PO 09/26/25 22:00 09/30/25 21:30 12.5 MG Famotidine 20 mg DAILY IV 09/27/25 10:00 09/30/25 08:47 20 MG Furosemide 40 mg DAILY IV 09/27/25 10:00 09/30/25 13:45 40 MG Diagnostic Test (Pha) 1 strip ACHS 09/26/25 22:00 10/01/25 05:27 1 STRIP Insulin Human Regular ACHS SC 09/26/25 22:00 09/28/25 18:34 2 UNITS Dextrose 50 ml UD PRN IV 09/26/25 21:15 Sodium Chloride 10 ml Q8HR IV 09/26/25 22:00 10/01/25 05:27 10 ML Acetaminophen/ Hydrocodone Bitart 1 tab Q4HP PRN PO 09/26/25 21:15 10/01/25 06:52 1 TAB Ondansetron HCl 4 mg Q4HP PRN IV 09/26/25 21:15 Docusate Sodium 100 mg BIDPRN PRN PO 09/26/25 21:15 Acetaminophen 650 mg Q6HP PRN PO 09/26/25 21:15 09/28/25 19:50 650 MG Nitroglycerin 0.4 mg Q5MINP PRN SL 09/26/25 21:15 Morphine Sulfate 2 mg Q30M PRN IV 09/26/25 21:15 Aspirin 81 mg DAILY PO 09/29/25 10:00 Pregabalin 50 mg DAILY PO 09/29/25 10:00 09/30/25 08:48 50 MG Sevelamer HCl 800 mg TIDWM PO 09/29/25 18:00 09/30/25 17:48 800 MG Allopurinol 300 mg DAILY PO 09/30/25 10:00 09/30/25 08:53 300 MG Oxcarbazepine 450 mg Q12HR PO 09/29/25 22:00 09/30/25 21:31 450 MG Amino Acid Protein 30 ml BID PO 09/30/25 22:00 Multivit/Ca Carb/ B Cmplx/FA/Prenat 1 tab DAILY PO 09/30/25 11:12 09/30/25 12:08 1 TAB Ceftriaxone Sodium 50 ml @ 100 mls/hr DAILY@09 IV 10/02/25 09:00 Clindamycin HCl 450 mg Q8HR PO 10/01/25 14:00 objective GENERAL: Alert and oriented x 3. No acute distress. Morbidly obese. EYES: PERRL, EOMI. Anicteric. HENT: Moist mucous membranes. LUNGS: Clear to auscultation bilaterally. CARDIOVASCULAR: Regular rate and rhythm. ABDOMEN: Soft, non-tender and non-distended. EXTREMITIES: No edema. NEUROLOGIC: No focal neurological deficits. SKIN: Warm, dry. laboratory and microbiology Laboratory Tests 10/01/25 05:38 Test 10/01/25 05:38 Range/Units Serum Glucose 100 74-106 mg/dL Problem List Acute syncopal episode. Cardiac arrest status post CPR. ESRD on hemodialysis. Hypertension. Peripheral neuropathy. Acute on chronic congestive heart failure exacerbation. History of CVA. Anemia of chronic disease. Diabetes. History of pacemaker. Morbidly obese. Assessment/Plan Continued all current supportive medical care. Morphine and [place] for pain management. Aspirin. IV antibiotics as ordered. Diuretics with Lasix. Nitro SL. Additional plan as per the hospital course. Dietary Evaluation Review Comments: Nutrition Recommendation: 1) CCHO 75gm + renal standard diet 2) Pro-stat 1 pk BID 3) Nephro-nellie 1 tab daily 4) Monitor PO intake, lab values, weight trend, and I/O Expected Outcomes/Goals: Wound to improve Intake to meet >75% estimated needs FU 3-5 days Plan discussed with: Patient MATTHEW CIFUENTES MD Oct 01, 2025 13:07
--- NOTE | 2025-10-01 20:07 | RESUS ---
CODE BLUE ASSESSSMENT History of Events History of Events: Coded during hemodialysis in 251a and now in 264 ICU. This is the second and third code blue. Initial Information Date: Oct 01, 2025 Time: 15:01 Location of Arrest: ICU (Central) Arrest Witnessed: Yes Type of arrest: Cardiac, Adult, Witnessed Spontaneous Respirations: No Pulse Present: No Monitoring: ECG, Pulse Oximetry, Apnea Crash Cart Opened and Supplies: Yes Airway Ventilation Artificial Ventilation: Bag/Endo tube Circulation Circulation #1: Time: 15:01 Pulse Rate (adult): 0 Circulation Comment: aystole Circulation #2: Time: 15:03 Pulse Rate (adult): 0 Circulation Comment: PEA Circulation #3: Time: 15:05 Pulse Rate (adult): 60 Blood Pressure Systolic: 112 Blood Pressure Diastolic: 75 Circulation Comment: ROSC Circulation #4: Time: 15:12 Circulation Comment: asystole, code #3 Circulation #5: Time: 15:14 Pulse Rate (adult): 98 Blood Pressure Systolic: 162 Blood Pressure Diastolic: 106 Circulation Comment: ROSC Defibrillation Defbrillation : Compressions: Manual Comment Defib pads already in place Medications & Response Medications and Responses #1: Medication Time: 15:02 ADULT Medications Given ADULT: Epinephrine 1 mg, Sodium Bacarbinate 50 meq, Calcium Chloride 10 mL Route of Administration: IV Medications and Responses #2: Medication Time: 15:12 ADULT Medications Given ADULT: Epinephrine 1 mg Route of Administration: IV Nurses Notes [place] Coma Scale Eye Opening: To Pain (2) (prior to intubation ) [place] Coma Scale Verbal: Incomprehensible (2) (prior to intubation post rosc) Ayan Coma Scale Motor: None (1) Pupil Reaction: Sluggish Bedside Blood Glucose: 99 Nurses Notes - Comment: Obtained ROSC prior to intubation. etomidate 25 mg iv given per Dr Otero order and Rocuronium 80 mg IV given per Dr. Otero order both prior to intubation. Fentanyl drip pulled as ordered and transfered to icu room 264. Time Code Ended Time Code Ended: 15:12 Outcome of code: Successful Family notified: Yes (at bedside) Code Team Present: Dr. Otero, Kristian Hart CLINICAL TRIALS DATA COORDINATOR, Tristan RN House Sup, Judy THERMAL INTELLIGENCE ANALYST charge, Tabitha COOK primary, Asa RN, Rowena RN, Dr Cavanaugh came to bedside to speak to family , RT x2 Post Resuscitation Neurologica Pupil Size: 3 Comment: sluggish ROSC Time of ROSC: 15:12 Date of Service: Oct 01, 2025 Billing Provider: RENATA TOBIAS MD Common Visit Codes: PROCEDURE ONLY Procedure Codes: 12229-[id number] CODE Tristan Palmer Oct 01, 2025 20:07 RENATA TOBIAS MD Oct 05, 2025 09:37
--- NOTE | 2025-10-01 23:58 | DVHPN2 ---
[facility] DOS: 10/01/2025 Patient seen and examined at bedside. Sedated, intubated on mechanical ventilator. Overnight events reviewed. Reviewed: Care Plan, H&P, Labs, Medications, Previous Orders, Radiology Changes from previous H/P or p: No Changes Eyes: No Pain, No Vision change, No Conjunctivae inflammation, No Eyelid inflammation, No Other, No Redness ENT: No Ear pain, No Ear discharge, No Nose pain, No Nose discharge, No Nose congestion, No Mouth pain, No Mouth swelling, No Throat pain, No Throat swelling, No Other Cardiovascular: Chest Pain; No Palpitations, No Orthopnea, No Paroxysmal Noc. Dyspnea, No Edema, No Lt Headedness, No Other Respiratory: No Cough, No Dry, No Shortness of breath, No SOB with excertion, No Wheezing, No Hemoptysis, No Pleuritic Pain, No Sputum, No Other Gastrointestinal: No Nausea, No Vomiting, No Abdominal Pain, No Diarrhea, No Constipation, No Melena, No Hematochezia, No Other Genitourinary: No Dysuria, No Frequency, No Incontinence, No Hematuria, No Retention; Other (On hemodialysis) Musculoskeletal: No other, No neck pain, No shoulder pain, No arm pain, No back pain, No hand pain, No leg pain, No foot pain Skin: No Rash, No Lesions, No Jaundice, No Bruising, No Other Objective Vitals Vital Signs Date Time Temp Pulse Resp B/P (MAP) Pulse Ox O2 Delivery O2 Flow Rate FiO2 10/01/25 23:50 115/58 10/01/25 23:15 98.2 61 18 99 208.8 10/01/25 22:47 60 10/01/25 22:00 Mechanical Ventilator+ 10/01/25 08:15 2 Intake/Output Intake and Output 10/01/25 07:00 Intake Total 200 ml Balance 200 ml Intake Oral 200 ml Exam Gen.: Patient lying in bed in medical ICU. Sedated, intubated on mechanical ventilator. Head: Normocephalic, atraumatic. Eyes: PERRLA. Ears: Normal external anatomy. Throat: Endotracheal tube and orogastric tube in place. Neck: Supple, trachea midline. Chest: Transmitted breath sounds bilaterally. Decreased air entry bilaterally. No wheezing. Bibasilar crackles. Cardiovascular: Positive S1, positive S2. Regular rate and rhythm. Abdomen: Positive bowel sounds in all 4 quadrants. Soft, nontender, nondistended. : Salas in place. Normal external genitalia. Rectal: Deferred. Skin: Warm, dry. Intact. Extremities: 2+ radial pulses bilaterally. No lower extremity edema. Neuro: Sedated. Medications Current Medications Medications Dose Ordered Sig/Esteban Route Start Time Stop Time Status Last Admin Dose Admin Carvedilol 12.5 mg Q12HR PO 09/26/25 22:00 Hold 09/30/25 21:30 12.5 MG Famotidine 20 mg DAILY IV 09/27/25 10:00 09/30/25 08:47 20 MG Furosemide 40 mg DAILY IV 09/27/25 10:00 09/30/25 13:45 40 MG Diagnostic Test (Pha) 1 strip ACHS 09/26/25 22:00 10/01/25 22:00 1 STRIP Insulin Human Regular ACHS SC 09/26/25 22:00 10/01/25 22:38 2 UNITS Dextrose 50 ml UD PRN IV 09/26/25 21:15 Sodium Chloride 10 ml Q8HR IV 09/26/25 22:00 10/01/25 22:39 10 ML Acetaminophen/ Hydrocodone Bitart 1 tab Q4HP PRN PO 09/26/25 21:15 10/01/25 06:52 1 TAB Ondansetron HCl 4 mg Q4HP PRN IV 09/26/25 21:15 Docusate Sodium 100 mg BIDPRN PRN PO 09/26/25 21:15 Acetaminophen 650 mg Q6HP PRN PO 09/26/25 21:15 09/28/25 19:50 650 MG Nitroglycerin 0.4 mg Q5MINP PRN SL 09/26/25 21:15 Morphine Sulfate 2 mg Q30M PRN IV 09/26/25 21:15 Aspirin 81 mg DAILY PO 09/29/25 10:00 Pregabalin 50 mg DAILY PO 09/29/25 10:00 09/30/25 08:48 50 MG Sevelamer HCl 800 mg TIDWM PO 09/29/25 18:00 09/30/25 17:48 800 MG Allopurinol 300 mg DAILY PO 09/30/25 10:00 09/30/25 08:53 300 MG Oxcarbazepine 450 mg Q12HR PO 09/29/25 22:00 10/01/25 22:50 450 MG Amino Acid Protein 30 ml BID PO 09/30/25 22:00 Multivit/Ca Carb/ B Cmplx/FA/Prenat 1 tab DAILY PO 09/30/25 11:12 09/30/25 12:08 1 TAB Ceftriaxone Sodium 50 ml @ 100 mls/hr DAILY@09 IV 10/02/25 09:00 Clindamycin HCl 450 mg Q8HR PO 10/01/25 14:00 10/01/25 22:37 450 MG Epinephrine HCl 250 ml @ 7.5 mls/hr Q24H IV 10/01/25 15:15 10/01/25 15:39 15 MLS/HR Norepinephrine Bitartrate 250 ml @ 3.75 mls/hr Q24H IV 10/01/25 15:15 10/01/25 23:50 7.5 MLS/HR Propofol 100 ml @ 3.936 mls/ hr Q24H IV 10/01/25 15:15 10/01/25 17:25 3.936 MLS/HR Fentanyl Citrate 250 ml @ 2.5 mls/hr Q24H IV 10/01/25 15:15 10/01/25 17:25 2.5 MLS/HR Sodium Bicarbonate 100 ml/Dextrose 1,100 ml @ 60 mls/hr [id number] IV 10/01/25 16:15 10/01/25 16:34 60 MLS/HR Laboratory Results Laboratory Tests 10/01/25 15:14 Chemistry Test 10/01/25 05:38 10/01/25 15:14 Albumin 3.2 g/dL (3.2-4.8) 2.8 g/dL (3.2-4.8) L Calcium Level 8.1 mg/dL (8.7-10.4) L 9.2 mg/dL (8.7-10.4) Total Protein 6.9 g/dL (5.7-8.2) 6.3 g/dL (5.7-8.2) Magnesium Level 2.2 mg/dL (1.6-2.6) Phosphorus Level 5.3 mg/dL (2.4-5.1) H LFT Test 10/01/25 05:38 10/01/25 15:14 Alanine Aminotransferase (ALT) 12 U/L (7-40) 16 U/L (7-40) Alkaline Phosphatase 166 U/L (46-116) H 170 U/L (46-116) H Aspartate Amino Transferase (AST) 15 U/L (13-40) 20 U/L (13-40) Total Bilirubin 0.2 mg/dL (0.2-1.0) 0.2 mg/dL (0.2-1.0) Urinalysis Test 09/27/25 04:30 Urine Color Light-yellow (Yellow) Urine Clarity Clear (Clear) Urine pH 6.5 (5.0-9.0) Urine Specific [place] 1.012 (1.001-1.035) Urine Protein 3+ (Negative) H Urine Ketones Negative (Negative) Urine Blood Trace /uL (Negative) H Urine Nitrite Negative (Negative) Urine Bilirubin Negative (Negative) Urine Urobilinogen Normal mg/dL (Negative) Urine Leukocyte Esterase Trace /uL (Negative) Urine RBC 1 /hpf (0 - 3) Urine Microscopic WBC 4 /HPF (0-3) H Urine Squamous Epithelial Cells Few /hpf (<5) Urine Bacteria Few /hpf (None Seen) H Urine Glucose 1+ mg/dL (Normal) H Blood Gas Results Test 10/01/25 17:02 Arterial Blood pH 7.324 (7.350-7.450) FiO2 % 100.0 Assessment/Plan Assessment/Plan Impression: Acute hypoxic respiratory failure On mechanical ventilator Lactic acidosis S/p cardiac arrest Acute on chronic CHF ESRD, on hemodialysis DM type II Shock Morbid obesity Cellulitis Sacral ulcer Plan: s/p intubation on mechanical ventilator. On AC mode; RR 18, VT 500, PEEP 5, FiO2 100% Titrate FIO2 to keep O2 saturation above 90%. VAP bundle. Daily ABG and CXR while intubated Sedate for ventilator synchrony Awaiting ABG. Pressors for hemodynamic support Levophed 18 mcg/min, epinephrine 4 mcg/min Titrate to keep mean arterial pressure greater than 65 mmHg. Continue antibiotics. Follow up cultures. HD per Nephrology Diurese w/ Lasix as tolerated Monitor renal function Monitor electrolytes. Supplement as necessary. Monitor ins and outs. Recommend judicious use of fluids due to CHF. Wound care Monitor lactic acid. Recommend diet and lifestyle modifications for weight reduction Obesity complicates all care GI prophylaxis. DVT prophylaxis. Prognosis: Poor given patient's multiple co-morbidities. Condition: Critical Rest of plan per hospitalist and other consultants. A total of 35 minutes of critical care time was spent reviewing the patient record, examining the patient, making a diagnostic and therapeutic plan, discussing this plan with the medical personnel, following up on diagnostic studies and following the patient for clinical stability excluding any and all procedures. At least 50% of this time was spent in direct, [id number] contact. Thank you, Dr. Cantu, for allowing me to participate in this patient's care. Further recommendations will depend on the patient's clinical course. Please do not hesitate to contact me if you have any questions or concerns. This medical document was created using an electronic medical record system with [employer] dictation system. Although these documentations are being carefully reviewed, there may still be some phonetic and typographical changes. The errors are purely typographical, due to imperfection on the software program, and do not reflect any compromise in the patient's medical care. Plan discussed with: Other (JOYCE Lu) Visit Coding Pulmonary Billing Provider: JEREMIAH GAMEZ MD Date of Service if different f: Oct 01, 2025 Common Visit Codes: 93531-[id number] INP/OBS CARE(HIGH), 64873-[id number] CARE 30-74 MIN JEREMIAH GAMEZ MD Oct 01, 2025 23:58
[2025-10-02] VITALS (104 sets, daily range): BP systolic 86–130; BP diastolic 43–70; PULSE 60–66; RESP 0–20; TEMP 97.2–99.5; O2SAT 94–100
[2025-10-02 03:26] LABS: Hematocrit 26.7 % (41.0-53.0); Hemoglobin 8.6 g/dL (13.5-17.5); Mean Corpuscular Hemoglobin 31.2 pg (28.0-32.0); Mean Corpuscular Volume 96.9 fL (80.0-100.0); Nucleated Red Blood Cells % 0.1 %
[2025-10-02 03:42] LABS: Alanine Aminotransferase 19 U/L (7-40); Anion Gap 10 (5-15); BUN/Creatinine Ratio 7.1 (10.0-20.0); Carbon Dioxide 29 mmol/L (20-31); Chloride 101 mmol/L (98-107); Magnesium 2.0 mg/dL (1.6-2.6); Potassium 4.6 mmol/L (3.5-5.1); Sodium 140 mmol/L (136-145); Total Protein 5.9 g/dL (5.7-8.2)
[2025-10-02 03:43] LABS: Bilirubin, Total 0.4 mg/dL (0.2-1.0)
[2025-10-02 03:57] LABS: Albumin 2.7 g/dL (3.2-4.8); Alkaline Phosphatase 158 U/L (46-116); Blood Urea Nitrogen 45 mg/dL (9-23); Calcium 8.0 mg/dL (8.7-10.4); Glucose 131 mg/dL (74-106)
--- NOTE | 2025-10-02 06:01 | DVH ---
CHEST RADIOGRAPH Indication: INTUBATED Technique: Single frontal view of the chest was obtained COMPARISON: XY CHEST PORTABLE on DOS: 10/01/25, XY CHEST PORTABLE on DOS: 09/26/25, XY CHEST PORTABLE on DOS: 08/16/25, XY CHEST PORTABLE on DOS: 06/02/25, XY CHEST PORTABLE on DOS: 05/31/25 FINDINGS: Lines and Tubes: Endotracheal tube, enteric catheter and tunneled right central venous catheter in satisfactory position. Left chest wall pacemaker. Lungs: Pulmonary vascular congestion, increased. Pleura: No effusion. No pneumothorax. Cardiomediastinal contours: Cardiomegaly. Bones: Unremarkable IMPRESSION: Increased pulmonary vascular congestion.
[2025-10-02 07:09] LABS: Base Excess 3.5 mmol/L (-2.0-3.0)
--- NOTE | 2025-10-02 11:06 | DVHPN2 ---
Progress Note Date Seen: Oct 02, 2025 Medical Necessity Reason Pt with a Central, PICC or Fol: No Subjective Review of Systems: RESPIRATORY:Abnormal Other Systems: Patient seen and examined by myself today in follow-up, patient intubated on ventilator Objective vital signs Vital Sign Date Time Temp Pulse Resp B/P (MAP) Pulse Ox O2 Delivery O2 Flow Rate FiO2 10/02/25 10:30 97.2 60 18 100/59 (73) 98 207.0 10/02/25 09:47 50 10/02/25 09:38 Mechanical Ventilator+ 10/01/25 08:15 2 Total Intake and Output 10/01/25 10/01/25 10/02/25 15:00 23:00 07:00 Intake Total 714.366 ml 750.238 ml Output Total 75 ml 100 ml Balance 639.366 ml 650.238 ml medications Current Medications Medications Dose Ordered Sig/Esteban Route Start Time Stop Time Status Last Admin Dose Admin Carvedilol 12.5 mg Q12HR PO 09/26/25 22:00 Hold 09/30/25 21:30 12.5 MG Famotidine 20 mg DAILY IV 09/27/25 10:00 10/02/25 07:41 20 MG Furosemide 40 mg DAILY IV 09/27/25 10:00 10/02/25 07:41 40 MG Diagnostic Test (Pha) 1 strip ACHS 09/26/25 22:00 10/02/25 10:52 1 STRIP Insulin Human Regular ACHS SC 09/26/25 22:00 10/02/25 06:52 2 UNITS Dextrose 50 ml UD PRN IV 09/26/25 21:15 Sodium Chloride 10 ml Q8HR IV 09/26/25 22:00 10/02/25 11:01 10 ML Acetaminophen/ Hydrocodone Bitart 1 tab Q4HP PRN PO 09/26/25 21:15 10/01/25 06:52 1 TAB Ondansetron HCl 4 mg Q4HP PRN IV 09/26/25 21:15 Docusate Sodium 100 mg BIDPRN PRN PO 09/26/25 21:15 Acetaminophen 650 mg Q6HP PRN PO 09/26/25 21:15 09/28/25 19:50 650 MG Nitroglycerin 0.4 mg Q5MINP PRN SL 09/26/25 21:15 Morphine Sulfate 2 mg Q30M PRN IV 09/26/25 21:15 Aspirin 81 mg DAILY PO 09/29/25 10:00 Pregabalin 50 mg DAILY PO 09/29/25 10:00 10/02/25 07:41 50 MG Sevelamer HCl 800 mg TIDWM PO 09/29/25 18:00 10/02/25 11:01 800 MG Allopurinol 300 mg DAILY PO 09/30/25 10:00 10/02/25 08:34 300 MG Oxcarbazepine 450 mg Q12HR PO 09/29/25 22:00 10/02/25 08:34 450 MG Amino Acid Protein 30 ml BID PO 09/30/25 22:00 Multivit/Ca Carb/ B Cmplx/FA/Prenat 1 tab DAILY PO 09/30/25 11:12 10/02/25 07:42 1 TAB Ceftriaxone Sodium 50 ml @ 100 mls/hr DAILY@09 IV 10/02/25 09:00 10/02/25 07:41 100 MLS/HR Clindamycin HCl 450 mg Q8HR PO 10/01/25 14:00 10/02/25 05:31 450 MG Epinephrine HCl 250 ml @ 7.5 mls/hr Q24H IV 10/01/25 15:15 10/01/25 15:39 15 MLS/HR Norepinephrine Bitartrate 250 ml @ 3.75 mls/hr Q24H IV 10/01/25 15:15 10/01/25 23:50 7.5 MLS/HR Propofol 100 ml @ 3.936 mls/ hr Q24H IV 10/01/25 15:15 10/02/25 05:37 3.936 MLS/HR Fentanyl Citrate 250 ml @ 2.5 mls/hr Q24H IV 10/01/25 15:15 10/01/25 17:25 2.5 MLS/HR Sodium Bicarbonate 100 ml/Dextrose 1,100 ml @ 60 mls/hr [id number] IV 10/01/25 16:15 10/02/25 09:14 60 MLS/HR Examination: LUNGS:Normal, CVS:Normal, MSK:Normal laboratory and microbiology Laboratory Tests 10/02/25 02:53 Test 10/02/25 02:53 Range/Units Serum Glucose 131 H 74-106 mg/dL Microbiology Date/Time Source Procedure Growth Status 10/01/25 14:53 Trachea Gram Stain - Final Resulted 10/01/25 14:53 Trachea Respiratory Culture - Preliminary Resulted Problem List/Assessment/Plan Problem List/Assessment/Plan End-stage renal disease on hemodialysis Acute respiratory failure, patient intubated on ventilator Status post cardiac arrest x3 Decompensated heart failure with ejection fraction less than 25% Diabetes with severe diabetic nephropathy Severe peripheral artery disease Anemia of chronic kidney disease Encephalomalacia Hyperphosphatemia Hyperparathyroidism, secondary Recommendations Hemodialysis tomorrow Epogen 15836 subQ 3 times weekly Albumin 25% IV with hemodialysis Strict I&Os Renal diet IV pressors for blood pressure support phosphate binders Calcitriol Discontinue amlodipine We will continue to follow Plan discussed with: Other (Nurse) My Orders My Orders Orders - AKASH BARRAZA MD Procedure Category Date Status Time Abg W/ Co-Ox RT 10/02/25 Logged 04:00 Chest Xray 1 View XY 10/02/25 Resulted 04:00 Dietary Evaluation Review Comments: Nutrition Recommendation: 1) CCHO 75gm + renal standard diet 2) Pro-stat 1 pk BID 3) Nephro-nellie 1 tab daily 4) Monitor PO intake, lab values, weight trend, and I/O Expected Outcomes/Goals: Wound to improve Intake to meet >75% estimated needs FU 3-5 days AKASH BARRAZA MD Oct 02, 2025 11:06
[2025-10-02] MEDS ORDERED: SODIUM BICARB 8.4% 50Meq/50ml SYR INJ IV ONE (13:38)
[2025-10-02] MEDS ORDERED: CALCIUM CHLOR(10%) 100MG/ML 10ML SYRINGE IV ONE (13:38)
[2025-10-02] MEDS ORDERED: LIDOCAINE HCL 100 MG/5ML (2%) SYRG INJ IV ONE (13:38)
[2025-10-02] MEDS ORDERED: EPINEPHrine HCL 1 MG/10 ML SYRG IV ONE (13:38)
--- NOTE | 2025-10-02 14:26 | DVHPNRES ---
Progress Note Date Seen: Oct 02, 2025 Resident Creating Document: RERE SEO RESIDENT Medical Necessity Reason Pt with a Central, PICC or Fol: No The following are medically ne: Central Line, Salas Catheter Subjective Review of Systems Mr. Zamora is a 59 year old male with PMHx of ESRD with recent initiation of dialysis approximately 2 weeks ago , HFrEF with pacemaker placement, CVA in 2012, type 2 diabetes mellitus, gout, and hypertension, who presented to [facility] due to witnessed cardiopulmonary arrest during dialysis on 09/26/2025. At the time of evaluation the patient is sedated and intubated, majority of history is taken from previous medical record and his sister, Claudia Burnett. Per record, the patient became unresponsive during hemodialysis, CPR was intiated by bystanders and AED was used, by the time EMS arrived on scene the patient was found A&Ox4, GCS15, and moaning in pain. On evaluation in the ED, patient was complaining of dyspnea and chest wall pain. He was afebrile, normocardic with pacedc rhythm, hypertensive, and saturating adequately on room air. EKG showed paced rhythm with widened QTc. Initial labs are significant for normocytic anemia, hypokalemia, creatinine 6.85, BUN 43, and BNP 1232.11. Troponins were negative. UA without alteration. Chest xray significant for lungs with bilateral patchy airspace opacities, prominent pulmonary vasculature, with small bilateral pleural effusions. Head CT shows bilateral cerebral encephalomalacia and mild global cerebral volume loss without intracranial hemorrhage or mass effect. The patient was started on IV diuresis and admitted for further work up and managment. He was evaluated by cardiology who continued diuresis. The patient was evaluated by nephrology who state that given diminished cardiac function likely patient cannot tolerate large ultrafiltration goals. He was scheduled for further dialysis, having undergone dialysis on 09/28/2025 without issue. He was receiving dialysis on 10/01/2025 when he became bradycardic and went into asystole. Martine jarrell was called and CPR was intiated with ROSC achieved after 7 minutes of CPR. He was transferred to the ICU and he entered asystole two more times in a span of 15 minutes a with ROSC achieved after 11 minutes of CPR and at 2 minutes of CPR respectively. He was intubated and started on pressors, sedation, antibiotics, and bicarbonate drip. On initial evaluation in the ICU, the patient is intubated, sedated, and mechanically ventilated, on levophed 2 mcg, pupils are reactive, no response to painful stimulus, cough and gag are present. Labs are significant for normocytic anemia, worsening thrombocytopenia, and worsening renal function. ABG is significant for metabolic alkalosis. Most recent chest xray shows worsening congestion. Past medical history: ESRD on dialysis, HFrEF, CVA in 2013, Type 2 diabetes mellitus, and hypertension Past surgical history: Pacemaker placement and replacement, Right femoral fracture repair Allergies: Denies Social: Per sister, the patient currently smokes marijuana, denies other drug use. Patient currently lives with his mother and his brother. Home meds: Famotidine, Allopurinol, pregabalin, furosemide, sevelamer, metoprolol, and lokelma Objective vital signs Vital Sign Date Time Temp Pulse Resp B/P (MAP) Pulse Ox O2 Delivery O2 Flow Rate FiO2 10/02/25 13:30 99.3 62 18 99/58 (72) 97 210.7 10/02/25 13:30 Mechanical Ventilator+ 50 50 10/01/25 08:15 2 Total Intake and Output 10/01/25 10/01/25 10/02/25 15:00 23:00 07:00 Intake Total 714.366 ml 750.238 ml Output Total 75 ml 100 ml Balance 639.366 ml 650.238 ml medications Current Medications Medications Dose Ordered Sig/Esteban Route Start Time Stop Time Status Last Admin Dose Admin Carvedilol 12.5 mg Q12HR PO 09/26/25 22:00 Hold 09/30/25 21:30 12.5 MG Famotidine 20 mg DAILY IV 09/27/25 10:00 10/02/25 07:41 20 MG Furosemide 40 mg DAILY IV 09/27/25 10:00 10/02/25 07:41 40 MG Diagnostic Test (Pha) 1 strip ACHS 09/26/25 22:00 10/02/25 10:52 1 STRIP Insulin Human Regular ACHS SC 09/26/25 22:00 10/02/25 06:52 2 UNITS Dextrose 50 ml UD PRN IV 09/26/25 21:15 Sodium Chloride 10 ml Q8HR IV 09/26/25 22:00 10/02/25 11:01 10 ML Acetaminophen/ Hydrocodone Bitart 1 tab Q4HP PRN PO 09/26/25 21:15 10/01/25 06:52 1 TAB Ondansetron HCl 4 mg Q4HP PRN IV 09/26/25 21:15 Docusate Sodium 100 mg BIDPRN PRN PO 09/26/25 21:15 Acetaminophen 650 mg Q6HP PRN PO 09/26/25 21:15 09/28/25 19:50 650 MG Nitroglycerin 0.4 mg Q5MINP PRN SL 09/26/25 21:15 Morphine Sulfate 2 mg Q30M PRN IV 09/26/25 21:15 Aspirin 81 mg DAILY PO 09/29/25 10:00 Pregabalin 50 mg DAILY PO 09/29/25 10:00 10/02/25 07:41 50 MG Sevelamer HCl 800 mg TIDWM PO 09/29/25 18:00 10/02/25 11:01 800 MG Allopurinol 300 mg DAILY PO 09/30/25 10:00 10/02/25 08:34 300 MG Oxcarbazepine 450 mg Q12HR PO 09/29/25 22:00 10/02/25 08:34 450 MG Amino Acid Protein 30 ml BID PO 09/30/25 22:00 Multivit/Ca Carb/ B Cmplx/FA/Prenat 1 tab DAILY PO 09/30/25 11:12 10/02/25 07:42 1 TAB Ceftriaxone Sodium 50 ml @ 100 mls/hr DAILY@09 IV 10/02/25 09:00 10/02/25 07:41 100 MLS/HR Clindamycin HCl 450 mg Q8HR PO 10/01/25 14:00 10/02/25 12:44 450 MG Epinephrine HCl 250 ml @ 7.5 mls/hr Q24H IV 10/01/25 15:15 10/01/25 15:39 15 MLS/HR Norepinephrine Bitartrate 250 ml @ 3.75 mls/hr Q24H IV 10/01/25 15:15 10/01/25 23:50 7.5 MLS/HR Propofol 100 ml @ 3.936 mls/ hr Q24H IV 10/01/25 15:15 10/02/25 05:37 3.936 MLS/HR Fentanyl Citrate 250 ml @ 2.5 mls/hr Q24H IV 10/01/25 15:15 10/01/25 17:25 2.5 MLS/HR Sodium Bicarbonate 100 ml/Dextrose 1,100 ml @ 60 mls/hr [id number] IV 10/01/25 16:15 10/02/25 09:14 60 MLS/HR Examination General: Patient is intubated, sedated, mechanically ventilated, non-reactive to painful stimulus HEENT: Normocephalic, atraumatic, 3 mm and sluggish but reactive, no EOM, pink conjunctiva, pink moist mucous membrane, ET tube in place, orogastric tube in palce Respiratory/pulmonary: Bilateral chest expansion, crackles auscultated in bilateral lower lobes Cardiovascular: Normal RRR Abdomen: Obese, Abdomen nondistended, normal bowel sounds, soft, no grimacing is observed on palpation, no palpable masses. Extremities: No deformities, bilateral lower extremity pedal edema 3+ in calves 2+, large red circular ulcers present in right calf, presence of femoral CVC in right groin region, pulses are present Skin: As abovve Neurological: cough and gag reflex present laboratory and microbiology Laboratory Tests 10/02/25 02:53 Test 10/02/25 02:53 Range/Units Serum Glucose 131 H 74-106 mg/dL Microbiology Date/Time Source Procedure Growth Status 10/01/25 14:53 Trachea Gram Stain - Final Resulted 10/01/25 14:53 Trachea Respiratory Culture - Preliminary Resulted Problem List/Assessment/Plan Problem List/Assessment/Plan Assessment and Plan: Neurology # Sedated - Propofol 5 - Fentanyl 125 # Encephalomalacia - Head CT 09/26/2025: Bilateral cerebral encephalomalacia # Global cerebral volume loss - Head CT 09/26/2025: Mild global cerebral volume loss #History of CVA in 2012 Cardiovascular #S/p Cardiac arrest with ROSC - 09/26/2025: Witnessed at dialysis center, bystanders started CPR and AED use, ROSC achieved before EMS arrived - 10/01/2025: Rhythm: Asystole, ROSC achieved after 7 minutes of CPR - 10/01/2025: Rhythm: Asystole, ROSC achieved after 11 minutes of CPR - 10/01/2025: Rhythm: Asystole, ROSC achieved after 2 minutes of CPR # Cardiogenic shock? vs Septic shock # Lactic acidosis likely due to above - Cultures are pending - Levophed 2 mcg - Epinephrine has been discontinued # Acute on chronic HFrEF - BNP 1232.11 - Echocardiogram 08/22/2025: LVEF of 20-25%, Severe LV dysfunction, moderate mitral regurgitation - Per cardiology: Diuretics with lasix, aspirin, nitroglycerin SL - Lasix 40 mg IV daily - S/p pacemaker placement # Bilateral pleural effusion - Chest xray 09/26/2025: The lungs demonstrate bilateral patchy airspace opacities. The pulmonary vasculature is prominent. Small bilateral pleural effusions. #Hypertension - Amlodipine held by nephrology Respiratory # Acute hypoxic respiratory failure # Ventilator -Intubated (10/01/2025) -On [facility] vent : VCAC Mode RR 18 TV 500ml, PEEP Of 5 and FiO2 of 50% - 8.0 endotracheal tube, 24 at the lip - Cutlures from sputum: Normal orophargyngeal elpidio GI # Peptic ulcer prophylaxis -Pantoprazole 40 mg IV daily # Salas catheter draining clear urine Nephrology # ESRD on hemodialysis - Received dialysis without complication 09/29/2025 - S/p Cardiac arrest during dialysis 10/01/2025 - Per nephrology, the patient is scheduled for hemodialysis tomorrow - Strict Is and Os # Severe diabetic nephropathy #Acute metabolic alkalosis # Secondary hyperparathyroidism # Hypocalcemia - Monitor - Calcitrol # Hyperphosphatemia - Phosphate binders Infectious disease # Possible cellulitis secondary to lower extremity ulcers - Clindamycin - Ceftriaxone - Wound culture ordered - Wound care is on board #Septic vs Cardiogenic shock - Cultures are pending Hem/onc #Thrombocytopenia - Monitor #Normocytic anemia, likely due to chronic disease - Monitor Hand H - Per nephrology: Epogen 05361 SQ 3 weekly as tolerated Endocrine #Type 2 diabetes mellitus - SSI -Accu cheks MSK # Gout - Allo#purinol 300 mg PO daily Marijuana use DVT prophylaxis: SCD PUD prophylaxis: Pantoprazole 40 mg IV daily Lines -R femoral central line: 10/01/2025 -Salas catheter 09/27/2025 -ET tube: 10/01/2025 Drips during [facility] ventilation Fentanyl 50 Propofol: 5 Bicarbonate drip Levophed 2 mcg Critical care time 71 minutes excluding procedure. Code status discussed greater than 20 minutes: Full CODE STATUS. Sister, Claudia Burnett, was updated over the phone. Plan discussed with Plan discussed with: Other (Sister, Nurse (Helen)) Dietary Evaluation Review Comments: Nutrition Recommendation: 1) CCHO 75gm + renal standard diet 2) Pro-stat 1 pk BID 3) Nephro-nellie 1 tab daily 4) Monitor PO intake, lab values, weight trend, and I/O Expected Outcomes/Goals: Wound to improve Intake to meet >75% estimated needs FU 3-5 days Visit Coding STANDARD RES Billing Provider: JEREMIAH GAMEZ MD Date of Service if different f: Oct 02, 2025 Common Visit Codes: 92037-[id number] CARE 30-74 MIN RERE SEO RESIDENT Oct 02, 2025 14:26
--- NOTE | 2025-10-02 23:11 | DVHPN2 ---
[facility] DOS: 10/02/2025 Patient seen and examined at bedside. Sedated, intubated on mechanical ventilator. Overnight events reviewed. Reviewed: Care Plan, H&P, Labs, Medications, Previous Orders, Radiology Changes from previous H/P or p: No Changes Eyes: No Pain, No Vision change, No Conjunctivae inflammation, No Eyelid inflammation, No Other, No Redness ENT: No Ear pain, No Ear discharge, No Nose pain, No Nose discharge, No Nose congestion, No Mouth pain, No Mouth swelling, No Throat pain, No Throat swelling, No Other Cardiovascular: Chest Pain; No Palpitations, No Orthopnea, No Paroxysmal Noc. Dyspnea, No Edema, No Lt Headedness, No Other Respiratory: No Cough, No Dry, No Shortness of breath, No SOB with excertion, No Wheezing, No Hemoptysis, No Pleuritic Pain, No Sputum, No Other Gastrointestinal: No Nausea, No Vomiting, No Abdominal Pain, No Diarrhea, No Constipation, No Melena, No Hematochezia, No Other Genitourinary: No Dysuria, No Frequency, No Incontinence, No Hematuria, No Retention; Other (On hemodialysis) Musculoskeletal: No other, No neck pain, No shoulder pain, No arm pain, No back pain, No hand pain, No leg pain, No foot pain Skin: No Rash, No Lesions, No Jaundice, No Bruising, No Other Objective Vitals Vital Signs Date Time Temp Pulse Resp B/P (MAP) Pulse Ox O2 Delivery O2 Flow Rate FiO2 10/02/25 22:18 65 18 96/52 (67) 98 50 10/02/25 20:00 98.9 98.9 10/02/25 17:46 Mechanical Ventilator+ 10/01/25 08:15 2 Intake/Output Intake and Output 10/02/25 07:00 Intake Total 1464.604 ml Output Total 175 ml Balance 1289.604 ml Intake Oral 150 ml IV Total 1257.604 ml Other 57 ml Output Urine Total 175 ml # Bowel Movements 2 Exam Gen.: Patient lying in bed in medical ICU. Sedated, intubated on mechanical ventilator. Head: Normocephalic, atraumatic. Eyes: PERRLA. Ears: Normal external anatomy. Throat: Endotracheal tube and orogastric tube in place. Neck: Supple, trachea midline. Chest: Transmitted breath sounds bilaterally. Decreased air entry bilaterally. No wheezing. Bibasilar crackles. Cardiovascular: Positive S1, positive S2. Regular rate and rhythm. Abdomen: Positive bowel sounds in all 4 quadrants. Soft, nontender, nondistended. : Salas in place. Normal external genitalia. Rectal: Deferred. Skin: Warm, dry. Intact. Extremities: 2+ radial pulses bilaterally. No lower extremity edema. Neuro: Sedated. Medications Current Medications Medications Dose Ordered Sig/Esteban Route Start Time Stop Time Status Last Admin Dose Admin Carvedilol 12.5 mg Q12HR PO 09/26/25 22:00 Hold 09/30/25 21:30 12.5 MG Famotidine 20 mg DAILY IV 09/27/25 10:00 10/02/25 07:41 20 MG Furosemide 40 mg DAILY IV 09/27/25 10:00 10/02/25 07:41 40 MG Diagnostic Test (Pha) 1 strip ACHS 09/26/25 22:00 10/02/25 21:40 1 STRIP Insulin Human Regular ACHS SC 09/26/25 22:00 10/02/25 06:52 2 UNITS Dextrose 50 ml UD PRN IV 09/26/25 21:15 Sodium Chloride 10 ml Q8HR IV 09/26/25 22:00 10/02/25 21:33 10 ML Acetaminophen/ Hydrocodone Bitart 1 tab Q4HP PRN PO 09/26/25 21:15 10/01/25 06:52 1 TAB Ondansetron HCl 4 mg Q4HP PRN IV 09/26/25 21:15 Docusate Sodium 100 mg BIDPRN PRN PO 09/26/25 21:15 Acetaminophen 650 mg Q6HP PRN PO 09/26/25 21:15 09/28/25 19:50 650 MG Nitroglycerin 0.4 mg Q5MINP PRN SL 09/26/25 21:15 Morphine Sulfate 2 mg Q30M PRN IV 09/26/25 21:15 Aspirin 81 mg DAILY PO 09/29/25 10:00 Pregabalin 50 mg DAILY PO 09/29/25 10:00 10/02/25 07:41 50 MG Sevelamer HCl 800 mg TIDWM PO 09/29/25 18:00 10/02/25 17:03 800 MG Allopurinol 300 mg DAILY PO 09/30/25 10:00 10/02/25 08:34 300 MG Oxcarbazepine 450 mg Q12HR PO 09/29/25 22:00 10/02/25 21:33 450 MG Amino Acid Protein 30 ml BID PO 09/30/25 22:00 Multivit/Ca Carb/ B Cmplx/FA/Prenat 1 tab DAILY PO 09/30/25 11:12 10/02/25 07:42 1 TAB Ceftriaxone Sodium 50 ml @ 100 mls/hr DAILY@09 IV 10/02/25 09:00 10/02/25 07:41 100 MLS/HR Clindamycin HCl 450 mg Q8HR PO 10/01/25 14:00 10/02/25 21:33 450 MG Epinephrine HCl 250 ml @ 7.5 mls/hr Q24H IV 10/01/25 15:15 10/01/25 15:39 15 MLS/HR Norepinephrine Bitartrate 250 ml @ 3.75 mls/hr Q24H IV 10/01/25 15:15 10/01/25 23:50 7.5 MLS/HR Propofol 100 ml @ 3.936 mls/ hr Q24H IV 10/01/25 15:15 10/02/25 19:46 11.808 MLS/HR Fentanyl Citrate 250 ml @ 2.5 mls/hr Q24H IV 10/01/25 15:15 10/01/25 17:25 2.5 MLS/HR Laboratory Results Laboratory Tests 10/02/25 02:53 Chemistry Test 10/02/25 02:53 Albumin 2.7 g/dL (3.2-4.8) L Calcium Level 8.0 mg/dL (8.7-10.4) L Magnesium Level 2.0 mg/dL (1.6-2.6) Phosphorus Level 5.2 mg/dL (2.4-5.1) H Total Protein 5.9 g/dL (5.7-8.2) LFT Test 10/02/25 02:53 Alanine Aminotransferase (ALT) 19 U/L (7-40) Alkaline Phosphatase 158 U/L (46-116) H Aspartate Amino Transferase (AST) 27 U/L (13-40) Total Bilirubin 0.4 mg/dL (0.2-1.0) Urinalysis Test 09/27/25 04:30 Urine Color Light-yellow (Yellow) Urine Clarity Clear (Clear) Urine pH 6.5 (5.0-9.0) Urine Specific [place] 1.012 (1.001-1.035) Urine Protein 3+ (Negative) H Urine Ketones Negative (Negative) Urine Blood Trace /uL (Negative) H Urine Nitrite Negative (Negative) Urine Bilirubin Negative (Negative) Urine Urobilinogen Normal mg/dL (Negative) Urine Leukocyte Esterase Trace /uL (Negative) Urine RBC 1 /hpf (0 - 3) Urine Microscopic WBC 4 /HPF (0-3) H Urine Squamous Epithelial Cells Few /hpf (<5) Urine Bacteria Few /hpf (None Seen) H Urine Glucose 1+ mg/dL (Normal) H Blood Gas Results Test 10/02/25 07:06 Arterial Blood pH 7.462 (7.350-7.450) FiO2 % 50.0 Microbiology Microbiology Date/Time Source Procedure Growth Status 10/01/25 16:52 Nose MRSA Screen - Final Complete Assessment/Plan Assessment/Plan Impression: Acute hypoxic respiratory failure On mechanical ventilator Lactic acidosis S/p cardiac arrest Acute on chronic CHF ESRD, on hemodialysis DM type II Shock Morbid obesity Cellulitis Sacral ulcer Events: Remains on vent support On AC mode; RR 18, VT 500, PEEP 5, FiO2 50% Improving O2 requirements Sedated on Propofol, Fentanyl. Pressors for hemodynamic support On Levophed Levophed 18 mcg/min, epinephrine 4 mcg/min Titrate to keep mean arterial pressure greater than 65 mmHg. Off epinephrine Continue abx for cellulitis Sputum cx revealed normal oropharyngeal elpidio. ABG reviewed, notable for alkalemia due to metabolic alkalosis Patient on bicarb drip - consider discontinuing drip CXR reviewed, notable for increased pulmonary vascular congestion. Nephrology plans for HD. Follow up Nephrology recs Labs and imaging reviewed. Rest of plan as noted below. Plan: s/p intubation on mechanical ventilator. On AC mode; RR 18, VT 500, PEEP 5, FiO2 50% Titrate FIO2 to keep O2 saturation above 90%. VAP bundle. Daily ABG and CXR while intubated Sedate for ventilator synchrony Pressors for hemodynamic support Titrate to keep mean arterial pressure greater than 65 mmHg. Continue antibiotics. Follow up cultures. HD per Nephrology Diurese w/ Lasix as tolerated Monitor renal function Monitor electrolytes. Supplement as necessary. Monitor ins and outs. Recommend judicious use of fluids due to CHF. Wound care Monitor lactic acid. Recommend diet and lifestyle modifications for weight reduction Obesity complicates all care GI prophylaxis. DVT prophylaxis. Prognosis: Poor given patient's multiple co-morbidities. Condition: Critical Rest of plan per hospitalist and other consultants. A total of 35 minutes of critical care time was spent reviewing the patient record, examining the patient, making a diagnostic and therapeutic plan, discussing this plan with the medical personnel, following up on diagnostic studies and following the patient for clinical stability excluding any and all procedures. At least 50% of this time was spent in direct, [id number] contact. Thank you, Dr. Cantu, for allowing me to participate in this patient's care. Further recommendations will depend on the patient's clinical course. Please do not hesitate to contact me if you have any questions or concerns. This medical document was created using an electronic medical record system with [employer] dictation system. Although these documentations are being carefully reviewed, there may still be some phonetic and typographical changes. The errors are purely typographical, due to imperfection on the software program, and do not reflect any compromise in the patient's medical care. Plan discussed with: Other (JOYCE Cervantes) Visit Coding Pulmonary Billing Provider: JEREMIAH GAMEZ MD Date of Service if different f: Oct 02, 2025 Common Visit Codes: [id number] INP/OBS CARE(HIGH), [id number] CARE 30-74 MIN JEREMIAH GAMEZ MD Oct 02, 2025 23:11
--- NOTE | 2025-10-02 23:32 | DVHPN2 ---
Progress Note - Dictate Date Seen: Oct 02, 2025 Medical Necessity Reason Pt with a Central, PICC or Fol: No Subjective Patient was seen and evaluated in follow up in the ICU. The patient was receiving dialysis on 10/01/2025 evening when he became bradycardic and went into asystole. Martine blue was called and CPR was initiated with ROSC achieved after 7 minutes of CPR. He was transferred to the ICU and he entered asystole two more times in a span of 15 minutes a with ROSC achieved after 11 minutes of CPR and at 2 minutes of CPR respectively. He was intubated and started on pressors, sedation, antibiotics, and bicarbonate drip. Patient is currently intubated and sedated, on ventilator. He is receiving vasopressors for hemodynamic support. HGB 8.6, HCT 26.7, BUN 45, SKI EDGE PAINTER 6.31, CA 8. Chest x-ray showed increased pulmonary vascular congestion. vital signs Vital Sign Date Time Temp Pulse Resp B/P (MAP) Pulse Ox O2 Delivery O2 Flow Rate FiO2 10/02/25 12:15 60 18 95/56 (69) 97 50 10/02/25 11:54 Mechanical Ventilator+ 10/02/25 11:45 99.0 210.2 10/01/25 08:15 2 Total Intake and Output 10/01/25 10/01/25 10/02/25 15:00 23:00 07:00 Intake Total 714.366 ml 750.238 ml Output Total 75 ml 100 ml Balance 639.366 ml 650.238 ml medications Current Medications Medications Dose Ordered Sig/Esteban Route Start Time Stop Time Status Last Admin Dose Admin Carvedilol 12.5 mg Q12HR PO 09/26/25 22:00 Hold 09/30/25 21:30 12.5 MG Famotidine 20 mg DAILY IV 09/27/25 10:00 10/02/25 07:41 20 MG Furosemide 40 mg DAILY IV 09/27/25 10:00 10/02/25 07:41 40 MG Diagnostic Test (Pha) 1 strip ACHS 09/26/25 22:00 10/02/25 10:52 1 STRIP Insulin Human Regular ACHS SC 09/26/25 22:00 10/02/25 06:52 2 UNITS Dextrose 50 ml UD PRN IV 09/26/25 21:15 Sodium Chloride 10 ml Q8HR IV 09/26/25 22:00 10/02/25 11:01 10 ML Acetaminophen/ Hydrocodone Bitart 1 tab Q4HP PRN PO 09/26/25 21:15 10/01/25 06:52 1 TAB Ondansetron HCl 4 mg Q4HP PRN IV 09/26/25 21:15 Docusate Sodium 100 mg BIDPRN PRN PO 09/26/25 21:15 Acetaminophen 650 mg Q6HP PRN PO 09/26/25 21:15 09/28/25 19:50 650 MG Nitroglycerin 0.4 mg Q5MINP PRN SL 09/26/25 21:15 Morphine Sulfate 2 mg Q30M PRN IV 09/26/25 21:15 Aspirin 81 mg DAILY PO 09/29/25 10:00 Pregabalin 50 mg DAILY PO 09/29/25 10:00 10/02/25 07:41 50 MG Sevelamer HCl 800 mg TIDWM PO 09/29/25 18:00 10/02/25 11:01 800 MG Allopurinol 300 mg DAILY PO 09/30/25 10:00 10/02/25 08:34 300 MG Oxcarbazepine 450 mg Q12HR PO 09/29/25 22:00 10/02/25 08:34 450 MG Amino Acid Protein 30 ml BID PO 09/30/25 22:00 Multivit/Ca Carb/ B Cmplx/FA/Prenat 1 tab DAILY PO 09/30/25 11:12 10/02/25 07:42 1 TAB Ceftriaxone Sodium 50 ml @ 100 mls/hr DAILY@09 IV 10/02/25 09:00 10/02/25 07:41 100 MLS/HR Clindamycin HCl 450 mg Q8HR PO 10/01/25 14:00 10/02/25 05:31 450 MG Epinephrine HCl 250 ml @ 7.5 mls/hr Q24H IV 10/01/25 15:15 10/01/25 15:39 15 MLS/HR Norepinephrine Bitartrate 250 ml @ 3.75 mls/hr Q24H IV 10/01/25 15:15 10/01/25 23:50 7.5 MLS/HR Propofol 100 ml @ 3.936 mls/ hr Q24H IV 10/01/25 15:15 10/02/25 05:37 3.936 MLS/HR Fentanyl Citrate 250 ml @ 2.5 mls/hr Q24H IV 10/01/25 15:15 10/01/25 17:25 2.5 MLS/HR Sodium Bicarbonate 100 ml/Dextrose 1,100 ml @ 60 mls/hr [id number] IV 10/01/25 16:15 10/02/25 09:14 60 MLS/HR objective GENERAL: Ill appearing, intubated on ventilator. Morbidly obese. EYES: PERRL, EOMI. Anicteric. HENT: Moist mucous membranes. LUNGS: Decreased breath sounds. CARDIOVASCULAR: Regular rate and rhythm. ABDOMEN: Soft, non-tender and non-distended. EXTREMITIES: No edema. SKIN: Warm, dry. laboratory and microbiology Laboratory Tests 10/02/25 02:53 Test 10/02/25 02:53 Range/Units Serum Glucose 131 H 74-106 mg/dL Problem List Acute syncopal episode. Cardiac arrest status post CPR. ESRD on hemodialysis. Hypertension. Peripheral neuropathy. Acute on chronic congestive heart failure exacerbation. History of CVA. Anemia of chronic disease. Diabetes. History of pacemaker. Morbidly obese. Assessment/Plan Continued all current supportive medical care. Morphine and [place] for pain management. Aspirin. IV antibiotics as ordered. Diuretics with Lasix. Vasopressors for hemodynamic support. Additional plan as per the hospital course. Critical care time of 45 minutes provided to include time spent evaluation of patient at bedside, when appropriate patient/family education for diagnosis, treatment plan, review of pertinent medical information and discussion of care with specialty providers and PCP. Mechanical ventilator parameters, treatment and adjustments have personally been reviewed by me and treatment plan by store promoter has also been reviewed. Dietary Evaluation Review Comments: Nutrition Recommendation: 1) CCHO 75gm + renal standard diet 2) Pro-stat 1 pk BID 3) Nephro-nellie 1 tab daily 4) Monitor PO intake, lab values, weight trend, and I/O Expected Outcomes/Goals: Wound to improve Intake to meet >75% estimated needs FU 3-5 days Plan discussed with: Other MATTHEW CIFUENTES MD Oct 02, 2025 12:45
[2025-10-03] VITALS (110 sets, daily range): BP systolic 88–154; BP diastolic 34–75; PULSE 60–70; RESP 14–20; TEMP 98.1–99.1; O2SAT 92–100
[2025-10-03 02:53] LABS: Hemoglobin 8.0 g/dL (13.5-17.5)
[2025-10-03 02:56] LABS: Hematocrit 24.6 % (41.0-53.0); Mean Corpuscular Hemoglobin 31.5 pg (28.0-32.0); Mean Corpuscular Volume 96.4 fL (80.0-100.0); Nucleated Red Blood Cells % 0.0 %
[2025-10-03 03:06] LABS: INR 1.14 (0.9-1.15); Partial Thromboplastin Time 31.6 SEC (24.5-34.5); Prothrombin Time 11.9 sec (9.3-11.8)
[2025-10-03 03:13] LABS: Alanine Aminotransferase 17 U/L (7-40); Anion Gap 10 (5-15); BUN/Creatinine Ratio 7.8 (10.0-20.0); Carbon Dioxide 30 mmol/L (20-31); Chloride 99 mmol/L (98-107); Glucose 96 mg/dL (74-106); Magnesium 2.1 mg/dL (1.6-2.6); Potassium 4.4 mmol/L (3.5-5.1); Sodium 139 mmol/L (136-145); Total Protein 5.8 g/dL (5.7-8.2)
[2025-10-03 03:14] LABS: Bilirubin, Total 0.4 mg/dL (0.2-1.0)
[2025-10-03 03:21] LABS: Albumin 2.6 g/dL (3.2-4.8); Alkaline Phosphatase 132 U/L (46-116); Blood Urea Nitrogen 50 mg/dL (9-23); Calcium 7.9 mg/dL (8.7-10.4)
[2025-10-03] MEDS: ALBUTEROL SULF 2.5 MG/0.5ML(0.5%) NEB SOLN NEB PRN (04:53)
--- NOTE | 2025-10-03 06:37 | DVH ---
CHEST RADIOGRAPH Indication: Intubated Technique: Single frontal view of the chest was obtained COMPARISON: XY CHEST XRAY 1 VIEW on DOS: 10/02/25, XY CHEST PORTABLE on DOS: 10/01/25, XY CHEST PORTABLE on DOS: 09/26/25, XY CHEST PORTABLE on DOS: 08/16/25, XY CHEST PORTABLE on DOS: 06/02/25 FINDINGS: Lines and Tubes: Slight interval retraction of the endotracheal tube such that the tip now projects approximately 4.0 cm above the level of the tiburcio. Remaining lines and tubes unchanged. Lungs: Stable appearing diffuse increased prominence of the pulmonary vasculature and bilateral pleural effusions. No pneumothorax. Cardiomediastinal contours: Cardiomegaly. Bones: Unremarkable IMPRESSION: 1. Slight interval retraction of the endotracheal tube such that the tip now projects approximately 4.0 cm above the level of the tiburcio. Remaining Lines and tubes unchanged. 2. Stable appearing diffuse increased prominence of the pulmonary vasculature and bilateral pleural effusions. 3. Cardiomegaly.
[2025-10-03 06:45] LABS: Base Excess 3.8 mmol/L (-2.0-3.0)
[2025-10-03] MEDS: SODIUM CHL 0.9% 1000 ML BAG XX ONE (07:00)
--- NOTE | 2025-10-03 10:04 | DVHPN2 ---
Progress Note Date Seen: Oct 03, 2025 Medical Necessity Reason Pt with a Central, PICC or Fol: No The following are medically ne: Central Line, Salas Catheter Subjective Review of Systems: RESPIRATORY:Abnormal Other Systems: Patient seen and examined by myself today in follow-up, patient remained intubated on ventilator Patient examined hemodialysis, blood pressure stable Objective vital signs Vital Sign Date Time Temp Pulse Resp B/P (MAP) Pulse Ox O2 Delivery O2 Flow Rate FiO2 10/03/25 09:31 50 10/03/25 09:31 18 98 Mechanical Ventilator+ 10/03/25 09:31 60 10/03/25 09:30 121/55 (77) 10/03/25 08:00 98.1 98.1 10/01/25 08:15 2 Total Intake and Output 10/02/25 10/02/25 10/03/25 15:00 23:00 07:00 Intake Total 585.238 ml 543.720 ml 434.464 ml Output Total 100 ml 20 ml Balance 585.238 ml 443.720 ml 414.464 ml medications Current Medications Medications Dose Ordered Sig/Esteban Route Start Time Stop Time Status Last Admin Dose Admin Carvedilol 12.5 mg Q12HR PO 09/26/25 22:00 Hold 09/30/25 21:30 12.5 MG Famotidine 20 mg DAILY IV 09/27/25 10:00 10/03/25 07:46 20 MG Furosemide 40 mg DAILY IV 09/27/25 10:00 10/03/25 07:47 40 MG Diagnostic Test (Pha) 1 strip ACHS 09/26/25 22:00 10/03/25 06:02 1 STRIP Insulin Human Regular ACHS SC 09/26/25 22:00 10/02/25 06:52 2 UNITS Dextrose 50 ml UD PRN IV 09/26/25 21:15 Sodium Chloride 10 ml Q8HR IV 09/26/25 22:00 10/03/25 08:30 10 ML Acetaminophen/ Hydrocodone Bitart 1 tab Q4HP PRN PO 09/26/25 21:15 10/01/25 06:52 1 TAB Ondansetron HCl 4 mg Q4HP PRN IV 09/26/25 21:15 Docusate Sodium 100 mg BIDPRN PRN PO 09/26/25 21:15 Acetaminophen 650 mg Q6HP PRN PO 09/26/25 21:15 09/28/25 19:50 650 MG Nitroglycerin 0.4 mg Q5MINP PRN SL 09/26/25 21:15 Morphine Sulfate 2 mg Q30M PRN IV 09/26/25 21:15 Aspirin 81 mg DAILY PO 09/29/25 10:00 10/03/25 07:48 81 MG Pregabalin 50 mg DAILY PO 09/29/25 10:00 10/03/25 07:47 50 MG Sevelamer HCl 800 mg TIDWM PO 09/29/25 18:00 10/03/25 07:47 800 MG Allopurinol 300 mg DAILY PO 09/30/25 10:00 10/03/25 08:30 300 MG Oxcarbazepine 450 mg Q12HR PO 09/29/25 22:00 10/03/25 08:30 450 MG Amino Acid Protein 30 ml BID PO 09/30/25 22:00 Multivit/Ca Carb/ B Cmplx/FA/Prenat 1 tab DAILY PO 09/30/25 11:12 10/03/25 07:47 1 TAB Ceftriaxone Sodium 50 ml @ 100 mls/hr DAILY@09 IV 10/02/25 09:00 10/03/25 07:46 100 MLS/HR Clindamycin HCl 450 mg Q8HR PO 10/01/25 14:00 10/03/25 05:38 450 MG Epinephrine HCl 250 ml @ 7.5 mls/hr Q24H IV 10/01/25 15:15 10/01/25 15:39 15 MLS/HR Norepinephrine Bitartrate 250 ml @ 3.75 mls/hr Q24H IV 10/01/25 15:15 10/01/25 23:50 7.5 MLS/HR Propofol 100 ml @ 3.936 mls/ hr Q24H IV 10/01/25 15:15 10/03/25 09:29 11.808 MLS/HR Fentanyl Citrate 250 ml @ 2.5 mls/hr Q24H IV 10/01/25 15:15 10/03/25 05:43 7.5 MLS/HR Albuterol 2.5 mg Q4HPRN PRN NEB 10/03/25 04:45 10/03/25 04:53 2.5 MG Ipratropium [place] 0.5 mg Q4HPRN PRN NEB 10/03/25 04:45 Albumin Human 100 ml @ 100 mls/hr ANABELLA PRN IV 10/03/25 09:45 Examination: LUNGS:Abnormal, CVS:Normal, MSK:Abnormal laboratory and microbiology Laboratory Tests 10/03/25 02:32 Test 10/03/25 02:32 Range/Units Serum Glucose 96 74-106 mg/dL Microbiology Date/Time Source Procedure Growth Status 10/01/25 16:52 Nose MRSA Screen - Final Complete Problem List/Assessment/Plan Problem List/Assessment/Plan End-stage renal disease on hemodialysis Acute respiratory failure, patient intubated on ventilator Status post cardiac arrest x3 Decompensated heart failure with ejection fraction less than 25% Diabetes with severe diabetic nephropathy Severe peripheral artery disease Anemia of chronic kidney disease Encephalomalacia Hyperphosphatemia Hyperparathyroidism, secondary Recommendations Continue with UF to 3 L as tolerated Epogen 10089 subQ 3 times weekly Albumin 25% IV with hemodialysis Strict I&Os Renal diet IV pressors for blood pressure support phosphate binders Calcitriol Discontinue amlodipine We will continue to follow Plan discussed with: Other (Nurse) My Orders My Orders Orders - AKASH BARRAZA MD Procedure Category Date Status Time Dialysis Nursing NIXON 10/03/25 In Process Message 07:00 Document Fluid Input NIXON 10/03/25 In Process And Outpu 07:00 Epoetin Mohan-Epbx PHA 10/03/25 In Process (Retacrit) 21:00 Hemodialysis Orders ORDERS 10/03/25 Verified 07:00 Albumin 25% (Albutein) PHA 10/03/25 In Process 09:45 Dietary Evaluation Review Comments: Nutrition Recommendation: 1) CCHO 75gm + renal standard diet 2) Pro-stat 1 pk BID 3) Nephro-nellie 1 tab daily 4) Monitor PO intake, lab values, weight trend, and I/O Expected Outcomes/Goals: Wound to improve Intake to meet >75% estimated needs FU 3-5 days AKASH BARRAZA MD Oct 03, 2025 10:04
[2025-10-03] MEDS: ALBUMIN 25% 100 ML IV PRN (10:48)
--- NOTE | 2025-10-03 13:07 | DVHPN2 ---
Progress Note - Dictate Date Seen: Oct 03, 2025 Medical Necessity Reason Pt with a Central, PICC or Fol: No The following are medically ne: Central Line, Salas Catheter Subjective Patient was seen and evaluated in follow up in the ICU. Patient is intubated and sedated, on ventilator. 45% FiO2. Patient on vasopressors for hemodynamic support. Patient is planned for HD today. HGB 8, HCT 24.6, BUN 50, REAL ESTATE DEVELOPMENT MANAGER 6.39, CA 7.9. Chest x-ray shows stable appearing diffuse increased prominence of the pulmonary vasculature and bilateral pleural effusions and cardiomegaly. vital signs Vital Sign Date Time Temp Pulse Resp B/P (MAP) Pulse Ox O2 Delivery O2 Flow Rate FiO2 10/03/25 11:48 70 18 150/73 (98) 98 45 10/03/25 11:47 Mechanical Ventilator+ 10/03/25 08:00 98.1 98.1 10/01/25 08:15 2 Total Intake and Output 10/02/25 10/02/25 10/03/25 14:59 22:59 06:59 Intake Total 588.988 ml 593.348 ml 434.464 ml Output Total 100 ml 20 ml Balance 588.988 ml 493.348 ml 414.464 ml medications Current Medications Medications Dose Ordered Sig/Esteban Route Start Time Stop Time Status Last Admin Dose Admin Carvedilol 12.5 mg Q12HR PO 09/26/25 22:00 Hold 09/30/25 21:30 12.5 MG Famotidine 20 mg DAILY IV 09/27/25 10:00 10/03/25 07:46 20 MG Diagnostic Test (Pha) 1 strip ACHS 09/26/25 22:00 10/03/25 10:28 1 STRIP Insulin Human Regular ACHS SC 09/26/25 22:00 10/02/25 06:52 2 UNITS Dextrose 50 ml UD PRN IV 09/26/25 21:15 Sodium Chloride 10 ml Q8HR IV 09/26/25 22:00 10/03/25 08:30 10 ML Acetaminophen/ Hydrocodone Bitart 1 tab Q4HP PRN PO 09/26/25 21:15 10/01/25 06:52 1 TAB Ondansetron HCl 4 mg Q4HP PRN IV 09/26/25 21:15 Docusate Sodium 100 mg BIDPRN PRN PO 09/26/25 21:15 Acetaminophen 650 mg Q6HP PRN PO 09/26/25 21:15 09/28/25 19:50 650 MG Nitroglycerin 0.4 mg Q5MINP PRN SL 09/26/25 21:15 Morphine Sulfate 2 mg Q30M PRN IV 09/26/25 21:15 Aspirin 81 mg DAILY PO 09/29/25 10:00 10/03/25 07:48 81 MG Pregabalin 50 mg DAILY PO 09/29/25 10:00 10/03/25 07:47 50 MG Sevelamer HCl 800 mg TIDWM PO 09/29/25 18:00 10/03/25 07:47 800 MG Oxcarbazepine 450 mg Q12HR PO 09/29/25 22:00 10/03/25 08:30 450 MG Amino Acid Protein 30 ml BID PO 09/30/25 22:00 Multivit/Ca Carb/ B Cmplx/FA/Prenat 1 tab DAILY PO 09/30/25 11:12 10/03/25 07:47 1 TAB Ceftriaxone Sodium 50 ml @ 100 mls/hr DAILY@09 IV 10/02/25 09:00 10/03/25 07:46 100 MLS/HR Clindamycin HCl 450 mg Q8HR PO 10/01/25 14:00 10/03/25 12:18 450 MG Epinephrine HCl 250 ml @ 7.5 mls/hr Q24H IV 10/01/25 15:15 10/01/25 15:39 15 MLS/HR Norepinephrine Bitartrate 250 ml @ 3.75 mls/hr Q24H IV 10/01/25 15:15 10/01/25 23:50 7.5 MLS/HR Propofol 100 ml @ 3.936 mls/ hr Q24H IV 10/01/25 15:15 10/03/25 09:29 11.808 MLS/HR Fentanyl Citrate 250 ml @ 2.5 mls/hr Q24H IV 10/01/25 15:15 10/03/25 05:43 7.5 MLS/HR Albuterol 2.5 mg Q4HPRN PRN NEB 10/03/25 04:45 10/03/25 04:53 2.5 MG Ipratropium [place] 0.5 mg Q4HPRN PRN NEB 10/03/25 04:45 Albumin Human 100 ml @ 100 mls/hr ANABELLA PRN IV 10/03/25 09:45 10/03/25 11:20 100 MLS/HR objective GENERAL: Ill appearing, intubated on ventilator. Morbidly obese. EYES: PERRL, EOMI. Anicteric. HENT: Moist mucous membranes. LUNGS: Decreased breath sounds. CARDIOVASCULAR: Regular rate and rhythm. ABDOMEN: Soft, non-tender and non-distended. EXTREMITIES: No edema. SKIN: Warm, dry. laboratory and microbiology Laboratory Tests 10/03/25 02:32 Test 10/03/25 02:32 Range/Units Serum Glucose 96 74-106 mg/dL Problem List Acute syncopal episode. Cardiac arrest status post CPR. ESRD on hemodialysis. Hypertension. Peripheral neuropathy. Acute on chronic congestive heart failure exacerbation. History of CVA. Anemia of chronic disease. Diabetes. History of pacemaker. Morbidly obese. Assessment/Plan Continued all current supportive medical care. Morphine and [place] for pain management. Aspirin. IV antibiotics as ordered. Vasopressors for hemodynamic support. Additional plan as per the hospital course. Critical care time of 45 minutes provided to include time spent evaluation of patient at bedside, when appropriate patient/family education for diagnosis, treatment plan, review of pertinent medical information and discussion of care with specialty providers and PCP. Mechanical ventilator parameters, treatment and adjustments have personally been reviewed by me and treatment plan by playground equipment erector has also been reviewed. Dietary Evaluation Review Comments: Nutrition Recommendation: 1) CCHO 75gm + renal standard diet 2) Pro-stat 1 pk BID 3) Nephro-nellie 1 tab daily 4) Monitor PO intake, lab values, weight trend, and I/O Expected Outcomes/Goals: Wound to improve Intake to meet >75% estimated needs FU 3-5 days Plan discussed with: Other MATTHEW CIFUENTES MD Oct 03, 2025 12:44
--- NOTE | 2025-10-03 14:21 | DVHPNRES ---
Progress Note Date Seen: Oct 03, 2025 Resident Creating Document: ANGEL OLMOS RESIDENT Medical Necessity Reason Pt with a Central, PICC or Fol: No The following are medically ne: Central Line, Salas Catheter Subjective Review of Systems Mr. Zamora is a 59 year old male with PMHx of ESRD with recent initiation of dialysis approximately 2 weeks ago , HFrEF with pacemaker placement, CVA in 2012, type 2 diabetes mellitus, gout, and hypertension, who presented to [facility] due to witnessed cardiopulmonary arrest during dialysis on 09/26/2025. At the time of evaluation the patient is sedated and intubated, majority of history is taken from previous medical record and his sister, Claudia Burnett. Per record, the patient became unresponsive during hemodialysis, CPR was intiated by bystanders and AED was used, by the time EMS arrived on scene the patient was found A&Ox4, GCS15, and moaning in pain. On evaluation in the ED, patient was complaining of dyspnea and chest wall pain. He was afebrile, normocardic with pacedc rhythm, hypertensive, and saturating adequately on room air. EKG showed paced rhythm with widened QTc. Initial labs are significant for normocytic anemia, hypokalemia, creatinine 6.85, BUN 43, and BNP 1232.11. Troponins were negative. UA without alteration. Chest xray significant for lungs with bilateral patchy airspace opacities, prominent pulmonary vasculature, with small bilateral pleural effusions. Head CT shows bilateral cerebral encephalomalacia and mild global cerebral volume loss without intracranial hemorrhage or mass effect. The patient was started on IV diuresis and admitted for further work up and managment. He was evaluated by cardiology who continued diuresis. The patient was evaluated by nephrology who state that given diminished cardiac function likely patient cannot tolerate large ultrafiltration goals. He was scheduled for further dialysis, having undergone dialysis on 09/28/2025 without issue. He was receiving dialysis on 10/01/2025 when he became bradycardic and went into asystole. Martine jarrell was called and CPR was intiated with ROSC achieved after 7 minutes of CPR. He was transferred to the ICU and he entered asystole two more times in a span of 15 minutes a with ROSC achieved after 11 minutes of CPR and at 2 minutes of CPR respectively. He was intubated and started on pressors, sedation, antibiotics, and bicarbonate drip. On initial evaluation in the ICU, the patient is intubated, sedated, and mechanically ventilated, on levophed 2 mcg, pupils are reactive, no response to painful stimulus, cough and gag are present. Labs are significant for normocytic anemia, worsening thrombocytopenia, and worsening renal function. ABG is significant for metabolic alkalosis. Most recent chest xray shows worsening congestion. Past medical history: ESRD on dialysis, HFrEF, CVA in 2013, Type 2 diabetes mellitus, and hypertension Past surgical history: Pacemaker placement and replacement, Right femoral fracture repair Allergies: Denies Social: Per sister, the patient currently smokes marijuana, denies other drug use. Patient currently lives with his mother and his brother. Home meds: Famotidine, Allopurinol, pregabalin, furosemide, sevelamer, metoprolol, and lokelma Patient seen and examined at bedside, patient has completed hemodialysis this morning, decrease sedation today, patient is on Levophed 2 Objective vital signs Vital Sign Date Time Temp Pulse Resp B/P (MAP) Pulse Ox O2 Delivery O2 Flow Rate FiO2 10/03/25 14:00 64 18 102/47 (65) 94 10/03/25 13:50 45 10/03/25 13:42 Mechanical Ventilator+ 10/03/25 13:30 98.5 98.5 10/01/25 08:15 2 Total Intake and Output 10/02/25 10/02/25 10/03/25 15:00 23:00 07:00 Intake Total 585.238 ml 543.720 ml 434.464 ml Output Total 100 ml 20 ml Balance 585.238 ml 443.720 ml 414.464 ml medications Current Medications Medications Dose Ordered Sig/Esteban Route Start Time Stop Time Status Last Admin Dose Admin Carvedilol 12.5 mg Q12HR PO 09/26/25 22:00 Hold 09/30/25 21:30 12.5 MG Famotidine 20 mg DAILY IV 09/27/25 10:00 10/03/25 07:46 20 MG Diagnostic Test (Pha) 1 strip ACHS 09/26/25 22:00 10/03/25 10:28 1 STRIP Insulin Human Regular ACHS SC 09/26/25 22:00 10/02/25 06:52 2 UNITS Dextrose 50 ml UD PRN IV 09/26/25 21:15 Sodium Chloride 10 ml Q8HR IV 09/26/25 22:00 10/03/25 08:30 10 ML Acetaminophen/ Hydrocodone Bitart 1 tab Q4HP PRN PO 09/26/25 21:15 10/01/25 06:52 1 TAB Ondansetron HCl 4 mg Q4HP PRN IV 09/26/25 21:15 Docusate Sodium 100 mg BIDPRN PRN PO 09/26/25 21:15 Acetaminophen 650 mg Q6HP PRN PO 09/26/25 21:15 09/28/25 19:50 650 MG Nitroglycerin 0.4 mg Q5MINP PRN SL 09/26/25 21:15 Morphine Sulfate 2 mg Q30M PRN IV 09/26/25 21:15 Aspirin 81 mg DAILY PO 09/29/25 10:00 10/03/25 07:48 81 MG Pregabalin 50 mg DAILY PO 09/29/25 10:00 10/03/25 07:47 50 MG Sevelamer HCl 800 mg TIDWM PO 09/29/25 18:00 10/03/25 07:47 800 MG Oxcarbazepine 450 mg Q12HR PO 09/29/25 22:00 10/03/25 08:30 450 MG Amino Acid Protein 30 ml BID PO 09/30/25 22:00 Multivit/Ca Carb/ B Cmplx/FA/Prenat 1 tab DAILY PO 09/30/25 11:12 10/03/25 07:47 1 TAB Ceftriaxone Sodium 50 ml @ 100 mls/hr DAILY@09 IV 10/02/25 09:00 10/03/25 07:46 100 MLS/HR Clindamycin HCl 450 mg Q8HR PO 10/01/25 14:00 10/03/25 12:18 450 MG Epinephrine HCl 250 ml @ 7.5 mls/hr Q24H IV 10/01/25 15:15 10/01/25 15:39 15 MLS/HR Norepinephrine Bitartrate 250 ml @ 3.75 mls/hr Q24H IV 10/01/25 15:15 10/01/25 23:50 7.5 MLS/HR Propofol 100 ml @ 3.936 mls/ hr Q24H IV 10/01/25 15:15 10/03/25 09:29 11.808 MLS/HR Fentanyl Citrate 250 ml @ 2.5 mls/hr Q24H IV 10/01/25 15:15 10/03/25 05:43 7.5 MLS/HR Albuterol 2.5 mg Q4HPRN PRN NEB 10/03/25 04:45 10/03/25 04:53 2.5 MG Ipratropium [place] 0.5 mg Q4HPRN PRN NEB 10/03/25 04:45 Albumin Human 100 ml @ 100 mls/hr ANABELLA PRN IV 10/03/25 09:45 10/03/25 11:20 100 MLS/HR Examination General: Patient is intubated, sedated, mechanically ventilated, non-reactive to painful stimulus HEENT: Normocephalic, atraumatic, 3 mm and sluggish but reactive, no EOM, pink conjunctiva, pink moist mucous membrane, ET tube in place, orogastric tube in palce Respiratory/pulmonary: Bilateral chest expansion, crackles auscultated in bilateral lower lobes Cardiovascular: Normal RRR Abdomen: Obese, Abdomen nondistended, normal bowel sounds, soft, no grimacing is observed on palpation, no palpable masses. Extremities: No deformities, bilateral lower extremity pedal edema 3+ in calves 2+, large red circular ulcers present in right calf, presence of femoral CVC in right groin region, pulses are present Skin: As abovve Neurological: cough and gag reflex present laboratory and microbiology Laboratory Tests 10/03/25 02:32 Test 10/03/25 02:32 Range/Units Serum Glucose 96 74-106 mg/dL Microbiology Date/Time Source Procedure Growth Status 10/02/25 00:45 Leg Gram Stain - Final Resulted 10/02/25 00:45 Leg Wound Culture - Preliminary Resulted Problem List/Assessment/Plan Problem List/Assessment/Plan Neurology # Sedated - Propofol 5 - Fentanyl 125 # Encephalomalacia - Head CT 09/26/2025: Bilateral cerebral encephalomalacia # Global cerebral volume loss - Head CT 09/26/2025: Mild global cerebral volume loss #History of CVA in 2012 Cardiovascular #S/p Cardiac arrest with ROSC - 09/26/2025: Witnessed at dialysis center, bystanders started CPR and AED use, ROSC achieved before EMS arrived - 10/01/2025: Rhythm: Asystole, ROSC achieved after 7 minutes of CPR - 10/01/2025: Rhythm: Asystole, ROSC achieved after 11 minutes of CPR - 10/01/2025: Rhythm: Asystole, ROSC achieved after 2 minutes of CPR # Cardiogenic shock? vs Septic shock # Lactic acidosis likely due to above - Cultures are pending - Levophed 2 mcg - Epinephrine has been discontinued # Acute on chronic HFrEF - BNP 1232.11 - Echocardiogram 08/22/2025: LVEF of 20-25%, Severe LV dysfunction, moderate mitral regurgitation - Per cardiology: Diuretics with lasix, aspirin, nitroglycerin SL - Lasix 40 mg IV daily - S/p pacemaker placement # Bilateral pleural effusion - Chest xray 09/26/2025: The lungs demonstrate bilateral patchy airspace opacities. The pulmonary vasculature is prominent. Small bilateral pleural effusions. #Hypertension - Amlodipine held by nephrology Respiratory # Acute hypoxic respiratory failure # Ventilator -Intubated (10/01/2025) -On [facility] vent : VCAC Mode RR 18 TV 500ml, PEEP Of 5 and FiO2 of 50% - 8.0 endotracheal tube, 24 at the lip - Cutlures from sputum: Normal orophargyngeal elpidio GI # Peptic ulcer prophylaxis -Pantoprazole 40 mg IV daily # Salas catheter draining clear urine Nephrology # ESRD on hemodialysis - Received dialysis without complication 09/29/2025 - S/p Cardiac arrest during dialysis 10/01/2025 - Per nephrology, the patient is scheduled for hemodialysis tomorrow - Strict Is and Os # Severe diabetic nephropathy #Acute metabolic alkalosis # Secondary hyperparathyroidism # Hypocalcemia - Monitor - Calcitrol # Hyperphosphatemia - Phosphate binders Infectious disease # Possible cellulitis secondary to lower extremity ulcers - Clindamycin - Ceftriaxone - Wound culture ordered - Wound care is on board #Septic vs Cardiogenic shock - Cultures are pending Hem/onc #Thrombocytopenia - Monitor #Normocytic anemia, likely due to chronic disease - Monitor Hand H - Per nephrology: Epogen 93106 SQ 3 weekly as tolerated Endocrine #Type 2 diabetes mellitus - SSI -Accu cheks MSK # Gout - Allo#purinol 300 mg PO daily Marijuana use DVT prophylaxis: SCD PUD prophylaxis: Pantoprazole 40 mg IV daily Lines -R femoral central line: 10/01/2025 -Salas catheter 09/27/2025 -ET tube: 10[facility]01/20[facility] Fentanyl 50 Propofol: 5 Bicarbonate drip Levophed 2 mcg Critical care time 47 minutes excluding procedure. Code status discussed greater than 20 minutes: Full CODE STATUS. Plan discussed with Plan discussed with: Other (RN) Dietary Evaluation Review Comments: Nutrition Recommendation: 1) CCHO 75gm + renal standard diet 2) Pro-stat 1 pk BID 3) Nephro-nellie 1 tab daily 4) Monitor PO intake, lab values, weight trend, and I/O Expected Outcomes/Goals: Wound to improve Intake to meet >75% estimated needs FU 3-5 days ANGEL OLMOS RESIDENT Oct 03, 2025 14:21
[2025-10-03] MEDS: EPOETIN ALFA-EPBX 10,000 UNIT/1ML VIAL SC ONE (20:30)
--- NOTE | 2025-10-03 23:57 | DVHPN2 ---
[facility] DOS: 10/03/2025 Patient seen and examined at bedside. Sedated, intubated on mechanical ventilator. Overnight events reviewed. Reviewed: Care Plan, H&P, Labs, Medications, Previous Orders, Radiology Changes from previous H/P or p: No Changes Eyes: No Pain, No Vision change, No Conjunctivae inflammation, No Eyelid inflammation, No Other, No Redness ENT: No Ear pain, No Ear discharge, No Nose pain, No Nose discharge, No Nose congestion, No Mouth pain, No Mouth swelling, No Throat pain, No Throat swelling, No Other Cardiovascular: Chest Pain; No Palpitations, No Orthopnea, No Paroxysmal Noc. Dyspnea, No Edema, No Lt Headedness, No Other Respiratory: No Cough, No Dry, No Shortness of breath, No SOB with excertion, No Wheezing, No Hemoptysis, No Pleuritic Pain, No Sputum, No Other Gastrointestinal: No Nausea, No Vomiting, No Abdominal Pain, No Diarrhea, No Constipation, No Melena, No Hematochezia, No Other Genitourinary: No Dysuria, No Frequency, No Incontinence, No Hematuria, No Retention; Other (On hemodialysis) Musculoskeletal: No other, No neck pain, No shoulder pain, No arm pain, No back pain, No hand pain, No leg pain, No foot pain Skin: No Rash, No Lesions, No Jaundice, No Bruising, No Other Objective Vitals Vital Signs Date Time Temp Pulse Resp B/P (MAP) Pulse Ox O2 Delivery O2 Flow Rate FiO2 10/03/25 23:15 63 18 109/45 (66) 93 10/03/25 22:32 40 10/03/25 22:00 Mechanical Ventilator+ 10/03/25 20:00 99.1 99.1 10/01/25 08:15 2 Intake/Output Intake and Output 10/03/25 07:00 Intake Total 1563.422 ml Output Total 120 ml Balance 1443.422 ml Intake Oral 450 ml IV Total 1113.422 ml Output Urine Total 120 ml # Bowel Movements 1 Exam Gen.: Patient lying in bed in medical ICU. Sedated, intubated on mechanical ventilator. Head: Normocephalic, atraumatic. Eyes: PERRLA. Ears: Normal external anatomy. Throat: Endotracheal tube and orogastric tube in place. Neck: Supple, trachea midline. Chest: Transmitted breath sounds bilaterally. Decreased air entry bilaterally. No wheezing. Bibasilar crackles. Cardiovascular: Positive S1, positive S2. Regular rate and rhythm. Abdomen: Positive bowel sounds in all 4 quadrants. Soft, nontender, nondistended. : Salas in place. Normal external genitalia. Rectal: Deferred. Skin: Warm, dry. Intact. Extremities: 2+ radial pulses bilaterally. No lower extremity edema. Neuro: Sedated. Medications Current Medications Medications Dose Ordered Sig/Esteban Route Start Time Stop Time Status Last Admin Dose Admin Carvedilol 12.5 mg Q12HR PO 09/26/25 22:00 Hold 09/30/25 21:30 12.5 MG Famotidine 20 mg DAILY IV 09/27/25 10:00 10/03/25 07:46 20 MG Diagnostic Test (Pha) 1 strip ACHS 09/26/25 22:00 10/03/25 21:13 1 STRIP Insulin Human Regular ACHS SC 09/26/25 22:00 10/02/25 06:52 2 UNITS Dextrose 50 ml UD PRN IV 09/26/25 21:15 Sodium Chloride 10 ml Q8HR IV 09/26/25 22:00 10/03/25 21:08 10 ML Acetaminophen/ Hydrocodone Bitart 1 tab Q4HP PRN PO 09/26/25 21:15 10/01/25 06:52 1 TAB Ondansetron HCl 4 mg Q4HP PRN IV 09/26/25 21:15 Docusate Sodium 100 mg BIDPRN PRN PO 09/26/25 21:15 Acetaminophen 650 mg Q6HP PRN PO 09/26/25 21:15 09/28/25 19:50 650 MG Nitroglycerin 0.4 mg Q5MINP PRN SL 09/26/25 21:15 Morphine Sulfate 2 mg Q30M PRN IV 09/26/25 21:15 Aspirin 81 mg DAILY PO 09/29/25 10:00 10/03/25 07:48 81 MG Pregabalin 50 mg DAILY PO 09/29/25 10:00 10/03/25 07:47 50 MG Sevelamer HCl 800 mg TIDWM PO 09/29/25 18:00 10/03/25 16:40 800 MG Oxcarbazepine 450 mg Q12HR PO 09/29/25 22:00 10/03/25 21:07 450 MG Amino Acid Protein 30 ml BID PO 09/30/25 22:00 Multivit/Ca Carb/ B Cmplx/FA/Prenat 1 tab DAILY PO 09/30/25 11:12 10/03/25 07:47 1 TAB Ceftriaxone Sodium 50 ml @ 100 mls/hr DAILY@09 IV 10/02/25 09:00 10/03/25 07:46 100 MLS/HR Clindamycin HCl 450 mg Q8HR PO 10/01/25 14:00 10/03/25 21:07 450 MG Epinephrine HCl 250 ml @ 7.5 mls/hr Q24H IV 10/01/25 15:15 10/01/25 15:39 15 MLS/HR Norepinephrine Bitartrate 250 ml @ 3.75 mls/hr Q24H IV 10/01/25 15:15 10/01/25 23:50 7.5 MLS/HR Propofol 100 ml @ 3.936 mls/ hr Q24H IV 10/01/25 15:15 10/03/25 09:29 11.808 MLS/HR Fentanyl Citrate 250 ml @ 2.5 mls/hr Q24H IV 10/01/25 15:15 10/03/25 05:43 7.5 MLS/HR Albuterol 2.5 mg Q4HPRN PRN NEB 10/03/25 04:45 10/03/25 04:53 2.5 MG Ipratropium [place] 0.5 mg Q4HPRN PRN NEB 10/03/25 04:45 Albumin Human 100 ml @ 100 mls/hr ANABELLA PRN IV 10/03/25 09:45 10/03/25 11:20 100 MLS/HR Laboratory Results Laboratory Tests 10/03/25 02:32 Chemistry Test 10/03/25 02:32 Albumin 2.6 g/dL (3.2-4.8) L Calcium Level 7.9 mg/dL (8.7-10.4) L Magnesium Level 2.1 mg/dL (1.6-2.6) Phosphorus Level 5.2 mg/dL (2.4-5.1) H Total Protein 5.8 g/dL (5.7-8.2) Coagulation Test 10/03/25 02:32 Prothrombin Time 11.9 sec (9.3-11.8) H Prothrombin Time INR 1.14 (0.9-1.15) Activated Partial Thromboplast Time 31.6 SEC (24.5-34.5) Cardiac Markers Test 10/03/25 02:32 B-Type Natriuretic Peptide 993.78 pg/mL (0-100) LFT Test 10/03/25 02:32 Alanine Aminotransferase (ALT) 17 U/L (7-40) Alkaline Phosphatase 132 U/L (46-116) H Aspartate Amino Transferase (AST) 23 U/L (13-40) Total Bilirubin 0.4 mg/dL (0.2-1.0) Urinalysis Test 09/27/25 04:30 Urine Color Light-yellow (Yellow) Urine Clarity Clear (Clear) Urine pH 6.5 (5.0-9.0) Urine Specific [place] 1.012 (1.001-1.035) Urine Protein 3+ (Negative) H Urine Ketones Negative (Negative) Urine Blood Trace /uL (Negative) H Urine Nitrite Negative (Negative) Urine Bilirubin Negative (Negative) Urine Urobilinogen Normal mg/dL (Negative) Urine Leukocyte Esterase Trace /uL (Negative) Urine RBC 1 /hpf (0 - 3) Urine Microscopic WBC 4 /HPF (0-3) H Urine Squamous Epithelial Cells Few /hpf (<5) Urine Bacteria Few /hpf (None Seen) H Urine Glucose 1+ mg/dL (Normal) H Blood Gas Results Test 10/03/25 06:39 Arterial Blood pH 7.471 (7.350-7.450) FiO2 % 50.0 Microbiology Microbiology Date/Time Source Procedure Growth Status 10/02/25 17:33 Blood Blood Culture - Preliminary NO GROWTH AFTER 24 HOURS OF INCUBATION. Resulted 10/02/25 00:45 Leg Gram Stain - Final Resulted 10/02/25 00:45 Leg Wound Culture - Preliminary Resulted Assessment/Plan Assessment/Plan Impression: Acute hypoxic respiratory failure On mechanical ventilator Lactic acidosis S/p cardiac arrest Acute on chronic CHF ESRD, on hemodialysis DM type II Shock Morbid obesity Cellulitis Sacral ulcer Events: Remains on vent support On AC mode; RR 18, VT 500, PEEP 5, FiO2 45% Improving O2 requirements Sedated on Propofol, Fentanyl. S/p hemodialysis - removed 3 liters. Pressors for hemodynamic support Levophed 10 mcg/min Titrate to keep mean arterial pressure greater than 65 mmHg. Off epinephrine. Improved pressor requirements, continue to taper as tolerated. Patient noted to have increased pressor requirements during HD. ABG reviewed, notable for alkalemia due to metabolic alkalosis CXR reviewed, notable for Stable appearing diffuse increased prominence of the pulmonary vasculature and bilateral pleural effusions. Cardiomegaly.. Continue abx for cellulitis Sputum cx revealed normal oropharyngeal elpidio. HD per Nephrology Follow up Nephrology recs Monitor renal function Taper sedation as tolerated Plan for CPAP in the AM. CPAP with pressure support of 8, PEEP of 5. Labs and imaging reviewed. Rest of plan as noted below. Plan: s/p intubation on mechanical ventilator. On AC mode; RR 18, VT 500, PEEP 5, FiO2 45% Titrate FIO2 to keep O2 saturation above 90%. VAP bundle. Daily ABG and CXR while intubated Sedate for ventilator synchrony Pressors for hemodynamic support Titrate to keep mean arterial pressure greater than 65 mmHg. Continue antibiotics. Follow up cultures. HD per Nephrology Diurese w/ Lasix as tolerated Monitor renal function Monitor electrolytes. Supplement as necessary. Monitor ins and outs. Recommend judicious use of fluids due to CHF. Wound care Monitor lactic acid. Recommend diet and lifestyle modifications for weight reduction Obesity complicates all care GI prophylaxis. DVT prophylaxis. Prognosis: Poor given patient's multiple co-morbidities. Condition: Critical Rest of plan per hospitalist and other consultants. A total of 35 minutes of critical care time was spent reviewing the patient record, examining the patient, making a diagnostic and therapeutic plan, discussing this plan with the medical personnel, following up on diagnostic studies and following the patient for clinical stability excluding any and all procedures. At least 50% of this time was spent in direct, [id number] contact. Thank you, Dr. Cantu, for allowing me to participate in this patient's care. Further recommendations will depend on the patient's clinical course. Please do not hesitate to contact me if you have any questions or concerns. This medical document was created using an electronic medical record system with [employer] system. Although these documentations are being carefully reviewed, there may still be some phonetic and typographical changes. The errors are purely typographical, due to imperfection on the software program, and do not reflect any compromise in the patient's medical care. Plan discussed with: Other (JOYCE Cervantes) My Orders Orders - JEREMIAH GAMEZ MD Procedure Category Date Status Time Albuterol Medneb PHA 10/03/25 In Process (Ventolin Medneb) 04:45 Ipratropium Medneb PHA 10/03/25 In Process (Atrovent Medneb) 04:45 Inline Breath RT 10/03/25 Logged Treatment 04:32 Cpap/Sed Vacation Med ORDERS 10/04/25 Transmitted Weaning 07:00 Cpap Trial For Am ORDERS 10/04/25 Transmitted 07:00 * Dietary Consult CONS 10/04/25 Transmitted 04:00 Visit Coding Pulmonary Billing Provider: JEREMIAH GAMEZ MD Date of Service if different f: Oct 03, 2025 Common Visit Codes: [id number] INP/OBS CARE(HIGH), [id number] CARE 30-74 MIN JEREMIAH GAMEZ MD Oct 03, 2025 23:56
[2025-10-04] VITALS (105 sets, daily range): BP systolic 93–167; BP diastolic 26–74; PULSE 60–66; RESP 12–18; TEMP 97–99; O2SAT 89–99
[2025-10-04 04:11] LABS: Hematocrit 23.3 % (41.0-53.0); Hemoglobin 7.5 g/dL (13.5-17.5); Mean Corpuscular Hemoglobin 31.4 pg (28.0-32.0); Mean Corpuscular Volume 97.0 fL (80.0-100.0); Nucleated Red Blood Cells % 0.1 %
[2025-10-04 04:25] LABS: Alanine Aminotransferase 13 U/L (7-40); Anion Gap 13 (5-15); BUN/Creatinine Ratio 8.3 (10.0-20.0); Carbon Dioxide 28 mmol/L (20-31); Glucose 79 mg/dL (74-106); Potassium 4.5 mmol/L (3.5-5.1); Sodium 139 mmol/L (136-145); Total Protein 5.9 g/dL (5.7-8.2)
[2025-10-04 04:26] LABS: Bilirubin, Total 0.6 mg/dL (0.2-1.0)
[2025-10-04 05:06] LABS: Albumin 2.9 g/dL (3.2-4.8); Alkaline Phosphatase 117 U/L (46-116); Blood Urea Nitrogen 56 mg/dL (9-23); Calcium 8.2 mg/dL (8.7-10.4); Chloride 98 mmol/L (98-107)
--- NOTE | 2025-10-04 05:38 | DVH ---
MEDICAL RECORDS NUMBER: [id number] PROCEDURE: XY CHEST XRAY 1 VIEW DATE: 10/04/2025 05:11 AM HISTORY: Intubated Views:1 COMPARISON: XY CHEST XRAY 1 VIEW on DOS: 10/03/25, XY CHEST XRAY 1 VIEW on DOS: 10/02/25, XY CHEST PORTABLE on DOS: 10/01/25, XY CHEST PORTABLE on DOS: 09/26/25, XY CHEST PORTABLE on DOS: 08/16/25 FINDINGS/IMPRESSION: Lungs: Patchy bilateral mid and lower lung infiltrates are noted. Mediastinum: Mediastinal structures appear unremarkable.A endotracheal tube is seen with the tip projecting approximately 2 cm above the tiburcio.A right-sided central line is seen. The tip projects over the superior vena cava. No pneumothorax is seen. The NG tube courses through the films. Skeletal: The skeletal structures appear unremarkable.
[2025-10-04 08:20] LABS: Base Excess 1.2 mmol/L (-2.0-3.0)
--- NOTE | 2025-10-04 11:20 | DVHPN2 ---
Progress Note Date Seen: Oct 04, 2025 Medical Necessity Reason Pt with a Central, PICC or Fol: No The following are medically ne: Central Line, Salas Catheter Subjective Review of Systems: RESPIRATORY:Abnormal Other Systems: Patient seen and examined by myself today in follow-up, patient remained intubated on ventilator Objective vital signs Vital Sign Date Time Temp Pulse Resp B/P (MAP) Pulse Ox O2 Delivery O2 Flow Rate FiO2 10/04/25 10:45 60 18 109/45 (66) 93 10/04/25 10:00 40 10/04/25 10:00 Mechanical Ventilator+ 10/04/25 08:00 98.2 98.2 Total Intake and Output 10/03/25 10/03/25 10/04/25 15:00 23:00 07:00 Intake Total 284.464 ml 334.226 ml 408.214 ml Output Total 75 ml 45 ml Balance 284.464 ml 259.226 ml 363.214 ml medications Current Medications Medications Dose Ordered Sig/Esteban Route Start Time Stop Time Status Last Admin Dose Admin Carvedilol 12.5 mg Q12HR PO 09/26/25 22:00 Hold 09/30/25 21:30 12.5 MG Famotidine 20 mg DAILY IV 09/27/25 10:00 10/03/25 07:46 20 MG Diagnostic Test (Pha) 1 strip ACHS 09/26/25 22:00 10/04/25 06:26 1 STRIP Insulin Human Regular ACHS SC 09/26/25 22:00 10/02/25 06:52 2 UNITS Dextrose 50 ml UD PRN IV 09/26/25 21:15 Sodium Chloride 10 ml Q8HR IV 09/26/25 22:00 10/04/25 05:58 10 ML Acetaminophen/ Hydrocodone Bitart 1 tab Q4HP PRN PO 09/26/25 21:15 10/01/25 06:52 1 TAB Ondansetron HCl 4 mg Q4HP PRN IV 09/26/25 21:15 Docusate Sodium 100 mg BIDPRN PRN PO 09/26/25 21:15 Acetaminophen 650 mg Q6HP PRN PO 09/26/25 21:15 09/28/25 19:50 650 MG Nitroglycerin 0.4 mg Q5MINP PRN SL 09/26/25 21:15 Morphine Sulfate 2 mg Q30M PRN IV 09/26/25 21:15 Aspirin 81 mg DAILY PO 09/29/25 10:00 10/03/25 07:48 81 MG Pregabalin 50 mg DAILY PO 09/29/25 10:00 10/03/25 07:47 50 MG Sevelamer HCl 800 mg TIDWM PO 09/29/25 18:00 10/03/25 16:40 800 MG Oxcarbazepine 450 mg Q12HR PO 09/29/25 22:00 10/03/25 21:07 450 MG Amino Acid Protein 30 ml BID PO 09/30/25 22:00 Multivit/Ca Carb/ B Cmplx/FA/Prenat 1 tab DAILY PO 09/30/25 11:12 10/03/25 07:47 1 TAB Ceftriaxone Sodium 50 ml @ 100 mls/hr DAILY@09 IV 10/02/25 09:00 10/04/25 09:52 100 MLS/HR Clindamycin HCl 450 mg Q8HR PO 10/01/25 14:00 10/04/25 05:58 450 MG Epinephrine HCl 250 ml @ 7.5 mls/hr Q24H IV 10/01/25 15:15 10/01/25 15:39 15 MLS/HR Norepinephrine Bitartrate 250 ml @ 3.75 mls/hr Q24H IV 10/01/25 15:15 10/01/25 23:50 7.5 MLS/HR Propofol 100 ml @ 3.936 mls/ hr Q24H IV 10/01/25 15:15 10/04/25 08:17 15.744 MLS/HR Fentanyl Citrate 250 ml @ 2.5 mls/hr Q24H IV 10/01/25 15:15 10/03/25 05:43 7.5 MLS/HR Albuterol 2.5 mg Q4HPRN PRN NEB 10/03/25 04:45 10/03/25 04:53 2.5 MG Ipratropium [place] 0.5 mg Q4HPRN PRN NEB 10/03/25 04:45 Albumin Human 100 ml @ 100 mls/hr ANABELLA PRN IV 10/03/25 09:45 10/03/25 11:20 100 MLS/HR Examination: LUNGS:Normal, CVS:Normal, MSK:Normal laboratory and microbiology Laboratory Tests 10/04/25 03:38 Test 10/04/25 03:38 Range/Units Serum Glucose 79 74-106 mg/dL Microbiology Date/Time Source Procedure Growth Status 10/02/25 17:33 Blood Blood Culture - Preliminary NO GROWTH AFTER 24 HOURS OF INCUBATION. Resulted 10/02/25 00:45 Leg Gram Stain - Final Resulted 10/02/25 00:45 Leg Wound Culture - Preliminary Resulted Problem List/Assessment/Plan Problem List/Assessment/Plan End-stage renal disease on hemodialysis Acute respiratory failure, patient intubated on ventilator Status post cardiac arrest x3 Decompensated heart failure with ejection fraction less than 25% Diabetes with severe diabetic nephropathy Severe peripheral artery disease Anemia of chronic kidney disease Encephalomalacia Hyperphosphatemia Hyperparathyroidism, secondary Recommendations Hemodialysis tomorrow Epogen 37475 subQ 3 times weekly Albumin 25% IV with hemodialysis Strict I&Os Renal diet IV pressors for blood pressure support phosphate binders Calcitriol Discontinue amlodipine We will continue to follow Plan discussed with: Other (Nurse) My Orders My Orders Orders - AKASH BARRAZA MD Procedure Category Date Status Time Hemodialysis Orders ORDERS 10/05/25 Verified 07:00 Dialysis Nursing NIXON 10/05/25 Verified Message 07:00 Heparin Sodium PHA 10/05/25 Verified (Porcine) 07:00 Heparin Sodium PHA 10/05/25 Verified (Porcine) 07:00 Sodium Chloride 0.9% PHA 10/05/25 Verified 07:00 Document Fluid Input NIXON 10/05/25 Verified And Outpu 07:00 Retacrit 10,000unit PHA 10/05/25 Verified Sc Xone 21:00 Dietary Evaluation Review Comments: Nutrition Recommendation: 1) CCHO 75gm + renal standard diet 2) Pro-stat 1 pk BID 3) Nephro-nellie 1 tab daily 4) Monitor PO intake, lab values, weight trend, and I/O Expected Outcomes/Goals: Wound to improve Intake to meet >75% estimated needs FU 3-5 days AKASH BARRAZA MD Oct 04, 2025 11:20
--- NOTE | 2025-10-04 12:14 | DVHPNRES ---
Progress Note Date Seen: Oct 04, 2025 Resident Creating Document: RERE SEO RESIDENT Medical Necessity Reason Pt with a Central, PICC or Fol: No The following are medically ne: Central Line, Salas Catheter Subjective Review of Systems Mr. Zamora is a 59 year old male with PMHx of ESRD with recent initiation of dialysis approximately 2 weeks ago , HFrEF with pacemaker placement, CVA in 2012, type 2 diabetes mellitus, gout, and hypertension, who presented to [facility] due to witnessed cardiopulmonary arrest during dialysis on 09/26/2025. At the time of evaluation the patient is sedated and intubated, majority of history is taken from previous medical record and his sister, Claudia Burnett. Per record, the patient became unresponsive during hemodialysis, CPR was intiated by bystanders and AED was used, by the time EMS arrived on scene the patient was found A&Ox4, GCS15, and moaning in pain. On evaluation in the ED, patient was complaining of dyspnea and chest wall pain. He was afebrile, normocardic with pacedc rhythm, hypertensive, and saturating adequately on room air. EKG showed paced rhythm with widened QTc. Initial labs are significant for normocytic anemia, hypokalemia, creatinine 6.85, BUN 43, and BNP 1232.11. Troponins were negative. UA without alteration. Chest xray significant for lungs with bilateral patchy airspace opacities, prominent pulmonary vasculature, with small bilateral pleural effusions. Head CT shows bilateral cerebral encephalomalacia and mild global cerebral volume loss without intracranial hemorrhage or mass effect. The patient was started on IV diuresis and admitted for further work up and managment. He was evaluated by cardiology who continued diuresis. The patient was evaluated by nephrology who state that given diminished cardiac function likely patient cannot tolerate large ultrafiltration goals. He was scheduled for further dialysis, having undergone dialysis on 09/28/2025 without issue. He was receiving dialysis on 10/01/2025 when he became bradycardic and went into asystole. Martine jarrell was called and CPR was intiated with ROSC achieved after 7 minutes of CPR. He was transferred to the ICU and he entered asystole two more times in a span of 15 minutes a with ROSC achieved after 11 minutes of CPR and at 2 minutes of CPR respectively. He was intubated and started on pressors, sedation, antibiotics, and bicarbonate drip. On initial evaluation in the ICU, the patient is intubated, sedated, and mechanically ventilated, on levophed 2 mcg, pupils are reactive, no response to painful stimulus, cough and gag are present. Labs are significant for normocytic anemia, worsening thrombocytopenia, and worsening renal function. ABG is significant for metabolic alkalosis. Most recent chest xray shows worsening congestion. Past medical history: ESRD on dialysis, HFrEF, CVA in 2013, Type 2 diabetes mellitus, and hypertension Past surgical history: Pacemaker placement and replacement, Right femoral fracture repair Allergies: Denies Social: Per sister, the patient currently smokes marijuana, denies other drug use. Patient currently lives with his mother and his brother. Home meds: Famotidine, Allopurinol, pregabalin, furosemide, sevelamer, metoprolol, and lokelma 10/04/2025: Patient seen in the ICU. He is intubated, sedated, and mechanically ventilated. Currently off pressors. Per nurse, patient presented desaturations to the 50s when moved has elevated peak pressures on the ventilator. Labs are significant for and a decrease in hemoglobin, renal function is stable at this time, he will undergo dialysis tomorrow. Blood cultures are currently growing Gram-positive cocci in pairs, for which he is currently be covered with ceftriaxone. We will continue to monitor. 10/03/2025: Patient seen and examined at bedside, patient has completed hemodialysis this morning, decrease sedation today, patient was taken off levophed. Per nurse, the patient will desaturate to 50s when moved. He is afebrile, normocardic, with MAP within normal range. He underwent dialysis yesterday with removal of 3 L. Blood cultures are growing gram positive cocci in pairs/ chain and wound cultures are growing E. coli. Patient will remain on ceftriaxone . Objective vital signs Vital Sign Date Time Temp Pulse Resp B/P (MAP) Pulse Ox O2 Delivery O2 Flow Rate FiO2 10/04/25 10:45 60 18 109/45 (66) 93 10/04/25 10:00 40 10/04/25 10:00 Mechanical Ventilator+ 10/04/25 08:00 98.2 98.2 Total Intake and Output 10/03/25 10/03/25 10/04/25 15:00 23:00 07:00 Intake Total 284.464 ml 334.226 ml 408.214 ml Output Total 75 ml 45 ml Balance 284.464 ml 259.226 ml 363.214 ml medications Current Medications Medications Dose Ordered Sig/Esteban Route Start Time Stop Time Status Last Admin Dose Admin Carvedilol 12.5 mg Q12HR PO 09/26/25 22:00 Hold 09/30/25 21:30 12.5 MG Famotidine 20 mg DAILY IV 09/27/25 10:00 10/04/25 11:20 20 MG Diagnostic Test (Pha) 1 strip ACHS 09/26/25 22:00 10/04/25 11:49 1 STRIP Insulin Human Regular ACHS SC 09/26/25 22:00 10/02/25 06:52 2 UNITS Dextrose 50 ml UD PRN IV 09/26/25 21:15 Sodium Chloride 10 ml Q8HR IV 09/26/25 22:00 10/04/25 05:58 10 ML Acetaminophen/ Hydrocodone Bitart 1 tab Q4HP PRN PO 09/26/25 21:15 10/01/25 06:52 1 TAB Ondansetron HCl 4 mg Q4HP PRN IV 09/26/25 21:15 Docusate Sodium 100 mg BIDPRN PRN PO 09/26/25 21:15 Acetaminophen 650 mg Q6HP PRN PO 09/26/25 21:15 09/28/25 19:50 650 MG Nitroglycerin 0.4 mg Q5MINP PRN SL 09/26/25 21:15 Morphine Sulfate 2 mg Q30M PRN IV 09/26/25 21:15 Aspirin 81 mg DAILY PO 09/29/25 10:00 10/03/25 07:48 81 MG Pregabalin 50 mg DAILY PO 09/29/25 10:00 Hold 10/03/25 07:47 50 MG Sevelamer HCl 800 mg TIDWM PO 09/29/25 18:00 10/03/25 16:40 800 MG Oxcarbazepine 450 mg Q12HR PO 09/29/25 22:00 10/03/25 21:07 450 MG Amino Acid Protein 30 ml BID PO 09/30/25 22:00 Multivit/Ca Carb/ B Cmplx/FA/Prenat 1 tab DAILY PO 09/30/25 11:12 10/03/25 07:47 1 TAB Ceftriaxone Sodium 50 ml @ 100 mls/hr DAILY@09 IV 10/02/25 09:00 10/04/25 09:52 100 MLS/HR Clindamycin HCl 450 mg Q8HR PO 10/01/25 14:00 10/04/25 05:58 450 MG Epinephrine HCl 250 ml @ 7.5 mls/hr Q24H IV 10/01/25 15:15 10/01/25 15:39 15 MLS/HR Norepinephrine Bitartrate 250 ml @ 3.75 mls/hr Q24H IV 10/01/25 15:15 10/01/25 23:50 7.5 MLS/HR Propofol 100 ml @ 3.936 mls/ hr Q24H IV 10/01/25 15:15 10/04/25 08:17 15.744 MLS/HR Fentanyl Citrate 250 ml @ 2.5 mls/hr Q24H IV 10/01/25 15:15 10/03/25 05:43 7.5 MLS/HR Albuterol 2.5 mg Q4HPRN PRN NEB 10/03/25 04:45 10/03/25 04:53 2.5 MG Ipratropium [place] 0.5 mg Q4HPRN PRN NEB 10/03/25 04:45 Albumin Human 100 ml @ 100 mls/hr ANABELLA PRN IV 10/03/25 09:45 10/03/25 11:20 100 MLS/HR Examination General: Patient is intubated, sedated, mechanically ventilated, non-reactive to painful stimulus HEENT: Normocephalic, atraumatic, 3 mm and sluggish but reactive, no EOM, pink conjunctiva, pink moist mucous membrane, ET tube in place, orogastric tube in palce Respiratory/pulmonary: Bilateral chest expansion, decreased breath sounds bilaterally Cardiovascular: Normal RRR Abdomen: Obese, Abdomen nondistended, normal bowel sounds, soft, no grimacing is observed on palpation, no palpable masses. Extremities: No deformities, bilateral lower extremity pedal edema 2+ in calves , large red circular ulcers present in right calf, presence of femoral CVC in right groin region, pulses are present Skin: As above Neurological: cough and gag reflex present laboratory and microbiology Laboratory Tests 10/04/25 03:38 Test 10/04/25 03:38 Range/Units Serum Glucose 79 74-106 mg/dL Microbiology Date/Time Source Procedure Growth Status 10/02/25 17:33 Blood Blood Culture - Preliminary NO GROWTH AFTER 24 HOURS OF INCUBATION. Resulted 10/02/25 00:45 Leg Gram Stain - Final Resulted 10/02/25 00:45 Leg Wound Culture - Preliminary Resulted Problem List/Assessment/Plan Problem List/Assessment/Plan Assessment and Plan: Neurology # Sedated - Propofol 20 - Fentanyl 50 # Encephalomalacia - Head CT 09/26/2025: Bilateral cerebral encephalomalacia # Global cerebral volume loss - Head CT 09/26/2025: Mild global cerebral volume loss # epilepsy - Oxycarbazepine #History of CVA in 2012 Cardiovascular #S/p Cardiac arrest with ROSC - 09/26/2025: Witnessed at dialysis center, bystanders started CPR and AED use, ROSC achieved before EMS arrived - 10/01/2025: Rhythm: Asystole, ROSC achieved after 7 minutes of CPR - 10/01/2025: Rhythm: Asystole, ROSC achieved after 11 minutes of CPR - 10/01/2025: Rhythm: Asystole, ROSC achieved after 2 minutes of CPR # Cardiogenic shock? vs Septic shock # Lactic acidosis likely due to above - Cultures are pending - Levophed 2 mcg - Epinephrine has been discontinued # Acute on chronic HFrEF - BNP 1232.11 - Echocardiogram 08/22/2025: LVEF of 20-25%, Severe LV dysfunction, moderate mitral regurgitation - Per cardiology: Diuretics with lasix, aspirin, nitroglycerin SL - Lasix 40 mg IV daily - S/p pacemaker placement # Bilateral pleural effusion - Chest xray 09/26/2025: The lungs demonstrate bilateral patchy airspace opacities. The pulmonary vasculature is prominent. Small bilateral pleural effusions. #Hypertension - Amlodipine held by nephrology Respiratory # Acute hypoxic respiratory failure # Ventilator -Intubated (10/01/2025) -On [facility] vent : VCAC Mode RR 18 TV 500ml, PEEP Of 5 and FiO2 of 50% - 8.0 endotracheal tube, 24 at the lip - Cutlures from sputum: Normal orophargyngeal elpidio GI # Peptic ulcer prophylaxis -Pantoprazole 40 mg IV daily # Salas catheter draining clear urine Nephrology # ESRD on hemodialysis - Received dialysis without complication 09/29/2025 - S/p Cardiac arrest during dialysis 10/01/2025 - Per nephrology, the patient is scheduled for hemodialysis tomorrow - Strict Is and Os # Severe diabetic nephropathy #Acute metabolic alkalosis # Secondary hyperparathyroidism # Hypocalcemia - Monitor - Calcitrol # Hyperphosphatemia - Phosphate binders Infectious disease # Possible cellulitis secondary to lower extremity ulcers - Ceftriaxone - Wound culture: E. coli - Wound care is on board #Septic vs Cardiogenic shock - Cultures: Gram-positive cocci in pairs/chains - Ceftriaxone 1 g IV daily Hem/onc #Thrombocytopenia - Monitor #Normocytic anemia, likely due to chronic disease - Monitor Hand H - Per nephrology: Epogen 99019 SQ 3 weekly as tolerated Endocrine #Type 2 diabetes mellitus - SSI -Accu cheks MSK # Gout - Allopurinol 300 mg PO daily Marijuana use DVT prophylaxis: SCD PUD prophylaxis: Pantoprazole 40 mg IV daily Lines -R femoral central line: 10/01/2025 -Salas catheter 09/27/2025 -ET tube: 10/01/2025 - Tunneled catheter in right pectoral region Patient has right femoral line given the presence of right tunnel catheter in right pectoral region and pacemaker in left field. [facility] Fentanyl 50 Propofol: 5 Bicarbonate drip Levophed 2 mcg Critical care time 50 minutes excluding procedure. Code status discussed greater than 20 minutes: Full CODE STATUS. Sister, Claudia Burnett, was updated over the phone. Plan discussed with Plan discussed with: Other (Nurse (Dominique)) My Orders My Orders Orders - RERE SEO Procedure Category Date Status Time Abg W/ Co-Ox RT 10/04/25 Logged 07:00 Dietary Evaluation Review Comments: Nutrition Recommendation: 1) CCHO 75gm + renal standard diet 2) Pro-stat 1 pk BID 3) Nephro-nellie 1 tab daily 4) Monitor PO intake, lab values, weight trend, and I/O Expected Outcomes/Goals: Wound to improve Intake to meet >75% estimated needs FU 3-5 days Visit Coding STANDARD RES Billing Provider: JEREMIAH GAMEZ MD Date of Service if different f: Oct 04, 2025 RERE SEO RESIDENT Oct 04, 2025 12:14
[2025-10-04] MEDS: Nepro With Carb Steady 1 Liter Bottle GT SCH (21:02)
--- NOTE | 2025-10-04 23:24 | DVHPN2 ---
[facility] DOS: 10/04/2025 Patient seen and examined at bedside. Sedated, intubated on mechanical ventilator. Overnight events reviewed. Reviewed: Care Plan, H&P, Labs, Medications, Previous Orders, Radiology Changes from previous H/P or p: No Changes Eyes: No Pain, No Vision change, No Conjunctivae inflammation, No Eyelid inflammation, No Other, No Redness ENT: No Ear pain, No Ear discharge, No Nose pain, No Nose discharge, No Nose congestion, No Mouth pain, No Mouth swelling, No Throat pain, No Throat swelling, No Other Cardiovascular: Chest Pain; No Palpitations, No Orthopnea, No Paroxysmal Noc. Dyspnea, No Edema, No Lt Headedness, No Other Respiratory: No Cough, No Dry, No Shortness of breath, No SOB with excertion, No Wheezing, No Hemoptysis, No Pleuritic Pain, No Sputum, No Other Gastrointestinal: No Nausea, No Vomiting, No Abdominal Pain, No Diarrhea, No Constipation, No Melena, No Hematochezia, No Other Genitourinary: No Dysuria, No Frequency, No Incontinence, No Hematuria, No Retention; Other (On hemodialysis) Musculoskeletal: No other, No neck pain, No shoulder pain, No arm pain, No back pain, No hand pain, No leg pain, No foot pain Skin: No Rash, No Lesions, No Jaundice, No Bruising, No Other Objective Vitals Vital Signs Date Time Temp Pulse Resp B/P (MAP) Pulse Ox O2 Delivery O2 Flow Rate FiO2 10/04/25 21:50 60 18 119/55 (76) 96 40 10/04/25 18:00 Mechanical Ventilator+ 10/04/25 16:00 98.7 98.7 Intake/Output Intake and Output 10/04/25 07:00 Intake Total 1026.904 ml Output Total 120 ml Balance 906.904 ml Intake Oral 450 ml IV Total 576.904 ml Output Urine Total 120 ml # Bowel Movements 2 Exam Gen.: Patient lying in bed in medical ICU. Sedated, intubated on mechanical ventilator. Head: Normocephalic, atraumatic. Eyes: PERRLA. Ears: Normal external anatomy. Throat: Endotracheal tube and orogastric tube in place. Neck: Supple, trachea midline. Chest: Transmitted breath sounds bilaterally. Decreased air entry bilaterally. No wheezing. Bibasilar crackles. Cardiovascular: Positive S1, positive S2. Regular rate and rhythm. Abdomen: Positive bowel sounds in all 4 quadrants. Soft, nontender, nondistended. : Salas in place. Normal external genitalia. Rectal: Deferred. Skin: Warm, dry. Intact. Extremities: 2+ radial pulses bilaterally. No lower extremity edema. Neuro: Sedated. Medications Current Medications Medications Dose Ordered Sig/Esteban Route Start Time Stop Time Status Last Admin Dose Admin Carvedilol 12.5 mg Q12HR PO 09/26/25 22:00 Hold 09/30/25 21:30 12.5 MG Famotidine 20 mg DAILY IV 09/27/25 10:00 10/04/25 11:20 20 MG Diagnostic Test (Pha) 1 strip ACHS 09/26/25 22:00 10/04/25 21:16 1 STRIP Insulin Human Regular ACHS SC 09/26/25 22:00 10/02/25 06:52 2 UNITS Dextrose 50 ml UD PRN IV 09/26/25 21:15 Sodium Chloride 10 ml Q8HR IV 09/26/25 22:00 10/04/25 21:17 10 ML Ondansetron HCl 4 mg Q4HP PRN IV 09/26/25 21:15 Pregabalin 50 mg DAILY PO 09/29/25 10:00 Hold 10/03/25 07:47 50 MG Sevelamer HCl 800 mg TIDWM PO 09/29/25 18:00 10/03/25 16:40 800 MG Oxcarbazepine 450 mg Q12HR PO 09/29/25 22:00 10/04/25 21:23 450 MG Amino Acid Protein 30 ml BID PO 09/30/25 22:00 10/04/25 21:02 30 ML Multivit/Ca Carb/ B Cmplx/FA/Prenat 1 tab DAILY PO 09/30/25 11:12 10/04/25 10:00 1 TAB Ceftriaxone Sodium 50 ml @ 100 mls/hr DAILY@09 IV 10/02/25 09:00 10/04/25 09:52 100 MLS/HR Epinephrine HCl 250 ml @ 7.5 mls/hr Q24H IV 10/01/25 15:15 10/01/25 15:39 15 MLS/HR Norepinephrine Bitartrate 250 ml @ 3.75 mls/hr Q24H IV 10/01/25 15:15 10/01/25 23:50 7.5 MLS/HR Propofol 100 ml @ 3.936 mls/ hr Q24H IV 10/01/25 15:15 10/04/25 21:16 11.808 MLS/HR Fentanyl Citrate 250 ml @ 2.5 mls/hr Q24H IV 10/01/25 15:15 10/03/25 05:43 7.5 MLS/HR Albuterol 2.5 mg Q4HPRN PRN NEB 10/03/25 04:45 10/03/25 04:53 2.5 MG Ipratropium [place] 0.5 mg Q4HPRN PRN NEB 10/03/25 04:45 Albumin Human 100 ml @ 100 mls/hr ANABELLA PRN IV 10/03/25 09:45 10/03/25 11:20 100 MLS/HR Aspirin 81 mg DAILY NG 10/05/25 10:00 Enteral Nutritional Formula 1,000 ml 40ML/HR GT 10/04/25 18:30 10/04/25 21:02 1,000 ML Laboratory Results Laboratory Tests 10/04/25 03:38 Chemistry Test 10/04/25 03:38 Albumin 2.9 g/dL (3.2-4.8) L Calcium Level 8.2 mg/dL (8.7-10.4) L Total Protein 5.9 g/dL (5.7-8.2) LFT Test 10/04/25 03:38 Alanine Aminotransferase (ALT) 13 U/L (7-40) Alkaline Phosphatase 117 U/L (46-116) H Aspartate Amino Transferase (AST) 25 U/L (13-40) Total Bilirubin 0.6 mg/dL (0.2-1.0) Urinalysis Test 09/27/25 04:30 Urine Color Light-yellow (Yellow) Urine Clarity Clear (Clear) Urine pH 6.5 (5.0-9.0) Urine Specific [place] 1.012 (1.001-1.035) Urine Protein 3+ (Negative) H Urine Ketones Negative (Negative) Urine Blood Trace /uL (Negative) H Urine Nitrite Negative (Negative) Urine Bilirubin Negative (Negative) Urine Urobilinogen Normal mg/dL (Negative) Urine Leukocyte Esterase Trace /uL (Negative) Urine RBC 1 /hpf (0 - 3) Urine Microscopic WBC 4 /HPF (0-3) H Urine Squamous Epithelial Cells Few /hpf (<5) Urine Bacteria Few /hpf (None Seen) H Urine Glucose 1+ mg/dL (Normal) H Blood Gas Results Test 10/04/25 06:48 Arterial Blood pH 7.481 (7.350-7.450) FiO2 % 40.0 Microbiology Microbiology Date/Time Source Procedure Growth Status 10/02/25 17:33 Blood Blood Culture - Preliminary NO GROWTH AFTER 48 HOURS OF INCUBATION. Resulted 10/02/25 00:45 Leg Gram Stain - Final Complete 10/02/25 00:45 Wound Culture - Final Escherichia coli Complete Assessment/Plan Assessment/Plan Impression: Acute hypoxic respiratory failure On mechanical ventilator Lactic acidosis S/p cardiac arrest Acute on chronic CHF ESRD, on hemodialysis DM type II Shock Morbid obesity Cellulitis Sacral ulcer Events: Remains on vent support On AC mode; RR 18, VT 500, PEEP 5, FiO2 40% Improving O2 requirements Sedated on Propofol, Fentanyl. S/p hemodialysis - removed 3 liters yesterday. Off Levophed, monitor hemodynamics. Patient noted to have increased pressor requirements during HD. ABG reviewed, notable for alkalemia due to metabolic alkalosis Continue abx for cellulitis Sputum cx revealed normal oropharyngeal elpidio. Hemodialysis per Nephrology - plan for HD in AM. Follow up Nephrology recs Monitor renal function Taper sedation as tolerated Plan for CPAP in the AM. CPAP with pressure support of 8, PEEP of 5. Labs and imaging reviewed. Rest of plan as noted below. Plan: s/p intubation on mechanical ventilator. On AC mode; RR 18, VT 500, PEEP 5, FiO2 40% Titrate FIO2 to keep O2 saturation above 90%. VAP bundle. Daily ABG and CXR while intubated Pressors for hemodynamic support Titrate to keep mean arterial pressure greater than 65 mmHg. Continue antibiotics. Follow up cultures. HD per Nephrology Diurese w/ Lasix as tolerated Monitor renal function Monitor electrolytes. Supplement as necessary. Monitor ins and outs. Recommend judicious use of fluids due to CHF. Wound care Monitor lactic acid. Recommend diet and lifestyle modifications for weight reduction Obesity complicates all care GI prophylaxis. DVT prophylaxis. Prognosis: Poor given patient's multiple co-morbidities. Condition: Critical Rest of plan per hospitalist and other consultants. A total of 35 minutes of critical care time was spent reviewing the patient record, examining the patient, making a diagnostic and therapeutic plan, discussing this plan with the medical personnel, following up on diagnostic studies and following the patient for clinical stability excluding any and all procedures. At least 50% of this time was spent in direct, [id number] contact. Thank you, Dr. Cantu, for allowing me to participate in this patient's care. Further recommendations will depend on the patient's clinical course. Please do not hesitate to contact me if you have any questions or concerns. This medical document was created using an electronic medical record system with [employer] dictation system. Although these documentations are being carefully reviewed, there may still be some phonetic and typographical changes. The errors are purely typographical, due to imperfection on the software program, and do not reflect any compromise in the patient's medical care. Plan discussed with: Other (JOYCE Fox) My Orders Orders - JEREMIAH GAMEZ MD Procedure Category Date Status Time Nutritional [facility] 10/04/25 In Process Supplements (Nepro 18:30 Visit Coding Pulmonary Billing Provider: JEREMIAH GAMEZ MD Date of Service if different f: Oct 04, 2025 Common Visit Codes: 80790-[id number] INP/OBS CARE(HIGH), 01859-[id number] CARE 30-74 MIN JEREMIAH GAMEZ MD Oct 04, 2025 23:24
--- NOTE | 2025-10-04 23:45 | DVHPN2 ---
Progress Note - Dictate Date Seen: Oct 04, 2025 Medical Necessity Reason Pt with a Central, PICC or Fol: No The following are medically ne: Central Line, Salas Catheter Subjective Patient was seen and evaluated in follow up in the ICU. Patient is intubated and sedated on ventilator. 40% FiO2. Patient remains on vasopressors. Blood cultures are growing gram positive cocci in pairs/chains. HGB 7.5, HCT 23.3, BUN 56, PEDIATRIC ONCOLOGIST 6.73, CA 8.2. Chest x-ray shows patchy bilateral mid and lower lung infiltrates are noted. vital signs Vital Sign Date Time Temp Pulse Resp B/P (MAP) Pulse Ox O2 Delivery O2 Flow Rate FiO2 10/04/25 10:45 60 18 109/45 (66) 93 10/04/25 10:00 40 10/04/25 10:00 Mechanical Ventilator+ 10/04/25 08:00 98.2 98.2 Total Intake and Output 10/03/25 10/03/25 10/04/25 15:00 23:00 07:00 Intake Total 284.464 ml 334.226 ml 408.214 ml Output Total 75 ml 45 ml Balance 284.464 ml 259.226 ml 363.214 ml medications Current Medications Medications Dose Ordered Sig/Esteban Route Start Time Stop Time Status Last Admin Dose Admin Carvedilol 12.5 mg Q12HR PO 09/26/25 22:00 Hold 09/30/25 21:30 12.5 MG Famotidine 20 mg DAILY IV 09/27/25 10:00 10/04/25 11:20 20 MG Diagnostic Test (Pha) 1 strip ACHS 09/26/25 22:00 10/04/25 11:49 1 STRIP Insulin Human Regular ACHS SC 09/26/25 22:00 10/02/25 06:52 2 UNITS Dextrose 50 ml UD PRN IV 09/26/25 21:15 Sodium Chloride 10 ml Q8HR IV 09/26/25 22:00 10/04/25 05:58 10 ML Acetaminophen/ Hydrocodone Bitart 1 tab Q4HP PRN PO 09/26/25 21:15 10/01/25 06:52 1 TAB Ondansetron HCl 4 mg Q4HP PRN IV 09/26/25 21:15 Docusate Sodium 100 mg BIDPRN PRN PO 09/26/25 21:15 Acetaminophen 650 mg Q6HP PRN PO 09/26/25 21:15 09/28/25 19:50 650 MG Nitroglycerin 0.4 mg Q5MINP PRN SL 09/26/25 21:15 Morphine Sulfate 2 mg Q30M PRN IV 09/26/25 21:15 Aspirin 81 mg DAILY PO 09/29/25 10:00 10/03/25 07:48 81 MG Pregabalin 50 mg DAILY PO 09/29/25 10:00 Hold 10/03/25 07:47 50 MG Sevelamer HCl 800 mg TIDWM PO 09/29/25 18:00 10/03/25 16:40 800 MG Oxcarbazepine 450 mg Q12HR PO 09/29/25 22:00 10/03/25 21:07 450 MG Amino Acid Protein 30 ml BID PO 09/30/25 22:00 Multivit/Ca Carb/ B Cmplx/FA/Prenat 1 tab DAILY PO 09/30/25 11:12 10/03/25 07:47 1 TAB Ceftriaxone Sodium 50 ml @ 100 mls/hr DAILY@09 IV 10/02/25 09:00 10/04/25 09:52 100 MLS/HR Clindamycin HCl 450 mg Q8HR PO 10/01/25 14:00 10/04/25 05:58 450 MG Epinephrine HCl 250 ml @ 7.5 mls/hr Q24H IV 10/01/25 15:15 10/01/25 15:39 15 MLS/HR Norepinephrine Bitartrate 250 ml @ 3.75 mls/hr Q24H IV 10/01/25 15:15 10/01/25 23:50 7.5 MLS/HR Propofol 100 ml @ 3.936 mls/ hr Q24H IV 10/01/25 15:15 10/04/25 08:17 15.744 MLS/HR Fentanyl Citrate 250 ml @ 2.5 mls/hr Q24H IV 10/01/25 15:15 10/03/25 05:43 7.5 MLS/HR Albuterol 2.5 mg Q4HPRN PRN NEB 10/03/25 04:45 10/03/25 04:53 2.5 MG Ipratropium [place] 0.5 mg Q4HPRN PRN NEB 10/03/25 04:45 Albumin Human 100 ml @ 100 mls/hr ANABELLA PRN IV 10/03/25 09:45 10/03/25 11:20 100 MLS/HR objective GENERAL: Ill appearing, intubated on ventilator. Morbidly obese. EYES: PERRL, EOMI. Anicteric. HENT: Moist mucous membranes. LUNGS: Decreased breath sounds. CARDIOVASCULAR: Regular rate and rhythm. ABDOMEN: Soft, non-tender and non-distended. EXTREMITIES: No edema. SKIN: Warm, dry. laboratory and microbiology Laboratory Tests 10/04/25 03:38 Test 10/04/25 03:38 Range/Units Serum Glucose 79 74-106 mg/dL Problem List Acute syncopal episode. Cardiac arrest status post CPR. ESRD on hemodialysis. Hypertension. Peripheral neuropathy. Acute on chronic congestive heart failure exacerbation. History of CVA. Anemia of chronic disease. Diabetes. History of pacemaker. Morbidly obese. Assessment/Plan Continued all current supportive medical care. Morphine and [place] for pain management. Aspirin. IV antibiotics as ordered. Vasopressors for hemodynamic support. Additional plan as per the hospital course. Critical care time of 45 minutes provided to include time spent evaluation of patient at bedside, when appropriate patient/family education for diagnosis, treatment plan, review of pertinent medical information and discussion of care with specialty providers and PCP. Mechanical ventilator parameters, treatment and adjustments have personally been reviewed by me and treatment plan by net mvc developer has also been reviewed. Dietary Evaluation Review Comments: Nutrition Recommendation: 1) CCHO 75gm + renal standard diet 2) Pro-stat 1 pk BID 3) Nephro-nellie 1 tab daily 4) Monitor PO intake, lab values, weight trend, and I/O Expected Outcomes/Goals: Wound to improve Intake to meet >75% estimated needs FU 3-5 days Plan discussed with: Other MATTHEW CIFUENTES MD Oct 04, 2025 13:55
[2025-10-05] VITALS (107 sets, daily range): BP systolic 71–166; BP diastolic 19–70; PULSE 60–68; RESP 10–22; TEMP 97–98.3; O2SAT 89–100
[2025-10-05 03:44] LABS: Chloride 98 mmol/L (98-107); Potassium 4.7 mmol/L (3.5-5.1); Sodium 139 mmol/L (136-145)
[2025-10-05 03:45] LABS: Anion Gap 14 (5-15); Carbon Dioxide 27 mmol/L (20-31)
[2025-10-05 03:49] LABS: Nucleated Red Blood Cells % 0.1 %
[2025-10-05 03:50] LABS: Glucose 74 mg/dL (74-106); Hematocrit 24.1 % (41.0-53.0); Hemoglobin 7.9 g/dL (13.5-17.5); Mean Corpuscular Hemoglobin 31.7 pg (28.0-32.0); Mean Corpuscular Volume 96.7 fL (80.0-100.0)
[2025-10-05 03:51] LABS: BUN/Creatinine Ratio 8.3 (10.0-20.0)
[2025-10-05 04:01] LABS: Blood Urea Nitrogen 60 mg/dL (9-23); Calcium 8.1 mg/dL (8.7-10.4)
--- NOTE | 2025-10-05 04:36 | DVH ---
CHEST RADIOGRAPH Indication: Intubated Technique: Single frontal view of the chest was obtained COMPARISON: XY CHEST XRAY 1 VIEW on DOS: 10/04/25, XY CHEST XRAY 1 VIEW on DOS: 10/03/25, XY CHEST XRAY 1 VIEW on DOS: 10/02/25, XY CHEST PORTABLE on DOS: 10/01/25, XY CHEST PORTABLE on DOS: 09/26/25 FINDINGS: Lines and Tubes: Unchanged. Left anterior chest wall cardiac pacing device. Lungs: Slight interval improvement in diffuse multifocal bilateral pulmonary airspace disease with residual right basilar atelectasis. Small bilateral pleural effusions. No pneumothorax. Cardiomediastinal contours: Cardiomegaly. Bones: Unremarkable IMPRESSION: 1. Slight interval improvement in diffuse multifocal bilateral pulmonary airspace disease with residual right basilar atelectasis. 2. Small bilateral pleural effusions. 3. Cardiomegaly. 4. Lines and tubes unchanged.
[2025-10-05 09:26] LABS: Base Excess 0.7 mmol/L (-2.0-3.0)
[2025-10-05] MEDS: SODIUM CHL 0.9% 1000 ML BAG XX ONE (12:55)
--- NOTE | 2025-10-05 13:07 | DVHPN2 ---
Progress Note - Dictate Date Seen: Oct 05, 2025 Medical Necessity Reason Pt with a Central, PICC or Fol: No The following are medically ne: Central Line, Salas Catheter Subjective Patient was seen and evaluated in follow up in the ICU. Patient is intubated and sedated on ventilator. 40% FiO2. The patient is planned for dialysis today. HGB 7.9, HCT 24.1, BUN 60, Digital Asset Specialist 7.21. Chest x-ray shows slight interval improvement in diffuse multifocal bilateral pulmonary airspace disease with residual right basilar atelectasis, small bilateral pleural effusions and cardiomegaly. vital signs Vital Sign Date Time Temp Pulse Resp B/P (MAP) Pulse Ox O2 Delivery O2 Flow Rate FiO2 10/05/25 11:40 61 18 126/37 (66) 96 40 10/05/25 08:01 97.0 97.0 10/05/25 08:00 Mechanical Ventilator+ Total Intake and Output 10/04/25 10/04/25 10/05/25 15:00 23:00 07:00 Intake Total 215.952 ml 154.144 ml 416.464 ml Output Total 60 ml 70 ml Balance 215.952 ml 94.144 ml 346.464 ml medications Current Medications Medications Dose Ordered Sig/Esteban Route Start Time Stop Time Status Last Admin Dose Admin Carvedilol 12.5 mg Q12HR PO 09/26/25 22:00 Hold 09/30/25 21:30 12.5 MG Famotidine 20 mg DAILY IV 09/27/25 10:00 10/05/25 08:27 20 MG Diagnostic Test (Pha) 1 strip ACHS 09/26/25 22:00 10/05/25 12:38 1 STRIP Insulin Human Regular ACHS SC 09/26/25 22:00 10/02/25 06:52 2 UNITS Dextrose 50 ml UD PRN IV 09/26/25 21:15 Sodium Chloride 10 ml Q8HR IV 09/26/25 22:00 10/05/25 06:04 10 ML Ondansetron HCl 4 mg Q4HP PRN IV 09/26/25 21:15 Pregabalin 50 mg DAILY PO 09/29/25 10:00 Hold 10/03/25 07:47 50 MG Sevelamer HCl 800 mg TIDWM PO 09/29/25 18:00 10/03/25 16:40 800 MG Oxcarbazepine 450 mg Q12HR PO 09/29/25 22:00 10/05/25 08:27 450 MG Amino Acid Protein 30 ml BID PO 09/30/25 22:00 10/05/25 10:00 30 ML Multivit/Ca Carb/ B Cmplx/FA/Prenat 1 tab DAILY PO 09/30/25 11:12 10/05/25 08:27 1 TAB Ceftriaxone Sodium 50 ml @ 100 mls/hr DAILY@09 IV 10/02/25 09:00 10/05/25 08:28 100 MLS/HR Epinephrine HCl 250 ml @ 7.5 mls/hr Q24H IV 10/01/25 15:15 10/01/25 15:39 15 MLS/HR Norepinephrine Bitartrate 250 ml @ 3.75 mls/hr Q24H IV 10/01/25 15:15 10/05/25 02:53 3.75 MLS/HR Propofol 100 ml @ 3.936 mls/ hr Q24H IV 10/01/25 15:15 10/05/25 04:00 11.808 MLS/HR Fentanyl Citrate 250 ml @ 2.5 mls/hr Q24H IV 10/01/25 15:15 10/03/25 05:43 7.5 MLS/HR Albuterol 2.5 mg Q4HPRN PRN NEB 10/03/25 04:45 10/05/25 08:40 2.5 MG Ipratropium [place] 0.5 mg Q4HPRN PRN NEB 10/03/25 04:45 Albumin Human 100 ml @ 100 mls/hr ANABELLA PRN IV 10/03/25 09:45 10/03/25 11:20 100 MLS/HR Aspirin 81 mg DAILY NG 10/05/25 10:00 10/05/25 08:28 81 MG Enteral Nutritional Formula 1,000 ml 40ML/HR GT 10/04/25 18:30 10/04/25 21:02 1,000 ML objective GENERAL: Ill appearing, intubated on ventilator. Morbidly obese. EYES: PERRL, EOMI. Anicteric. HENT: Moist mucous membranes. LUNGS: Decreased breath sounds. CARDIOVASCULAR: Regular rate and rhythm. ABDOMEN: Soft, non-tender and non-distended. EXTREMITIES: No edema. SKIN: Warm, dry. laboratory and microbiology Laboratory Tests 10/05/25 03:14 Test 10/05/25 03:14 Range/Units Serum Glucose 74 74-106 mg/dL Problem List Acute syncopal episode. Status post cardiac arrest x3. ESRD on hemodialysis. Hypertension. Peripheral neuropathy. Severe peripheral artery disease. Acute on chronic congestive heart failure exacerbation. History of CVA. Anemia of chronic disease. Diabetes with severe diabetic nephropathy. History of pacemaker. Morbidly obese. Decompensated heart failure with ejection fraction less than 25%. Encephalomalacia. Hyperphosphatemia. Hyperparathyroidism. Assessment/Plan Continued all current supportive medical care. Aspirin. IV antibiotics as ordered. Morphine and [place] for pain management. Vasopressors for hemodynamic support. Additional plan as per the hospital course. Critical care time of 45 minutes provided to include time spent evaluation of patient at bedside, when appropriate patient/family education for diagnosis, treatment plan, review of pertinent medical information and discussion of care with specialty providers and PCP. Mechanical ventilator parameters, treatment and adjustments have personally been reviewed by me and treatment plan by saddle stitch operator has also been reviewed. Dietary Evaluation Review Comments: Nutrition Recommendation: 1) CCHO 75gm + renal standard diet 2) Pro-stat 1 pk BID 3) Nephro-nellie 1 tab daily 4) Monitor PO intake, lab values, weight trend, and I/O Expected Outcomes/Goals: Wound to improve Intake to meet >75% estimated needs FU 3-5 days Plan discussed with: Other MATTHEW CIFUENTES MD Oct 05, 2025 13:07
--- NOTE | 2025-10-05 13:51 | DVHPNRES ---
Progress Note Date Seen: Oct 05, 2025 Resident Creating Document: RERE SEO RESIDENT Medical Necessity Reason Pt with a Central, PICC or Fol: No The following are medically ne: Central Line, Salas Catheter Subjective Review of Systems Mr. Zamora is a 59 year old male with PMHx of ESRD with recent initiation of dialysis approximately 2 weeks ago , HFrEF with pacemaker placement, CVA in 2012, type 2 diabetes mellitus, gout, and hypertension, who presented to [facility] due to witnessed cardiopulmonary arrest during dialysis on 09/26/2025. At the time of evaluation the patient is sedated and intubated, majority of history is taken from previous medical record and his sister, Claudia Burnett. Per record, the patient became unresponsive during hemodialysis, CPR was intiated by bystanders and AED was used, by the time EMS arrived on scene the patient was found A&Ox4, GCS15, and moaning in pain. On evaluation in the ED, patient was complaining of dyspnea and chest wall pain. He was afebrile, normocardic with pacedc rhythm, hypertensive, and saturating adequately on room air. EKG showed paced rhythm with widened QTc. Initial labs are significant for normocytic anemia, hypokalemia, creatinine 6.85, BUN 43, and BNP 1232.11. Troponins were negative. UA without alteration. Chest xray significant for lungs with bilateral patchy airspace opacities, prominent pulmonary vasculature, with small bilateral pleural effusions. Head CT shows bilateral cerebral encephalomalacia and mild global cerebral volume loss without intracranial hemorrhage or mass effect. The patient was started on IV diuresis and admitted for further work up and managment. He was evaluated by cardiology who continued diuresis. The patient was evaluated by nephrology who state that given diminished cardiac function likely patient cannot tolerate large ultrafiltration goals. He was scheduled for further dialysis, having undergone dialysis on 09/28/2025 without issue. He was receiving dialysis on 10/01/2025 when he became bradycardic and went into asystole. Martine jarrell was called and CPR was intiated with ROSC achieved after 7 minutes of CPR. He was transferred to the ICU and he entered asystole two more times in a span of 15 minutes a with ROSC achieved after 11 minutes of CPR and at 2 minutes of CPR respectively. He was intubated and started on pressors, sedation, antibiotics, and bicarbonate drip. On initial evaluation in the ICU, the patient is intubated, sedated, and mechanically ventilated, on levophed 2 mcg, pupils are reactive, no response to painful stimulus, cough and gag are present. Labs are significant for normocytic anemia, worsening thrombocytopenia, and worsening renal function. ABG is significant for metabolic alkalosis. Most recent chest xray shows worsening congestion. Past medical history: ESRD on dialysis, HFrEF, CVA in 2013, Type 2 diabetes mellitus, and hypertension Past surgical history: Pacemaker placement and replacement, Right femoral fracture repair Allergies: Denies Social: Per sister, the patient currently smokes marijuana, denies other drug use. Patient currently lives with his mother and his brother. Home meds: Famotidine, Allopurinol, pregabalin, furosemide, sevelamer, metoprolol, and lokelma 10/05/2025: Patient seen in the ICU. He is intubated, sedated, and mechanically ventilated. Overnight levophed had to be resumed. Per nurse, he continues to present desaturations to the 70s when moved. Additionally the patient continues to reach peak pressures on the vent for which sedation was increased. Labs are stable. Lab was contacted today to confirm blood culture results as they did not appear on the EMR, per lab patient's blood cultures are not going any organisms at this time. Chest xray today shows interval improvement. The patient is scheduled for dialysis today. Due to lack of cough and gag and minimally reactive pupils in the context of a patient post cardiac arrest x3, there is concern of anoxic brain injury. Head CT has been ordered. 10/04/2025: Patient seen in the ICU. He is intubated, sedated, and mechanically ventilated. Currently off pressors. Per nurse, patient presented desaturations to the 50s when moved has elevated peak pressures on the ventilator. Labs are significant for and a decrease in hemoglobin, renal function is stable at this time, he will undergo dialysis tomorrow. Blood cultures are currently growing Gram-positive cocci in pairs, for which he is currently be covered with ceftriaxone. We will continue to monitor. 10/03/2025: Patient seen and examined at bedside, patient has completed hemodialysis this morning, decrease sedation today, patient was taken off levophed. Per nurse, the patient will desaturate to 50s when moved. He is afebrile, normocardic, with MAP within normal range. He underwent dialysis yesterday with removal of 3 L. Blood cultures are growing gram positive cocci in pairs/ chain and wound cultures are growing E. coli. Patient will remain on ceftriaxone . Objective vital signs Vital Sign Date Time Temp Pulse Resp B/P (MAP) Pulse Ox O2 Delivery O2 Flow Rate FiO2 10/05/25 11:40 61 18 126/37 (66) 96 40 10/05/25 08:01 97.0 97.0 10/05/25 08:00 Mechanical Ventilator+ Total Intake and Output 10/04/25 10/04/25 10/05/25 15:00 23:00 07:00 Intake Total 215.952 ml 154.144 ml 416.464 ml Output Total 60 ml 70 ml Balance 215.952 ml 94.144 ml 346.464 ml medications Current Medications Medications Dose Ordered Sig/Esteban Route Start Time Stop Time Status Last Admin Dose Admin Carvedilol 12.5 mg Q12HR PO 09/26/25 22:00 Hold 09/30/25 21:30 12.5 MG Famotidine 20 mg DAILY IV 09/27/25 10:00 10/05/25 08:27 20 MG Diagnostic Test (Pha) 1 strip ACHS 09/26/25 22:00 10/05/25 12:38 1 STRIP Insulin Human Regular ACHS SC 09/26/25 22:00 10/02/25 06:52 2 UNITS Dextrose 50 ml UD PRN IV 09/26/25 21:15 Sodium Chloride 10 ml Q8HR IV 09/26/25 22:00 10/05/25 06:04 10 ML Ondansetron HCl 4 mg Q4HP PRN IV 09/26/25 21:15 Pregabalin 50 mg DAILY PO 09/29/25 10:00 Hold 10/03/25 07:47 50 MG Sevelamer HCl 800 mg TIDWM PO 09/29/25 18:00 10/03/25 16:40 800 MG Oxcarbazepine 450 mg Q12HR PO 09/29/25 22:00 10/05/25 08:27 450 MG Amino Acid Protein 30 ml BID PO 09/30/25 22:00 10/05/25 10:00 30 ML Multivit/Ca Carb/ B Cmplx/FA/Prenat 1 tab DAILY PO 09/30/25 11:12 10/05/25 08:27 1 TAB Ceftriaxone Sodium 50 ml @ 100 mls/hr DAILY@09 IV 10/02/25 09:00 10/05/25 08:28 100 MLS/HR Epinephrine HCl 250 ml @ 7.5 mls/hr Q24H IV 10/01/25 15:15 10/01/25 15:39 15 MLS/HR Norepinephrine Bitartrate 250 ml @ 3.75 mls/hr Q24H IV 10/01/25 15:15 10/05/25 02:53 3.75 MLS/HR Propofol 100 ml @ 3.936 mls/ hr Q24H IV 10/01/25 15:15 10/05/25 04:00 11.808 MLS/HR Fentanyl Citrate 250 ml @ 2.5 mls/hr Q24H IV 10/01/25 15:15 10/03/25 05:43 7.5 MLS/HR Albuterol 2.5 mg Q4HPRN PRN NEB 10/03/25 04:45 10/05/25 08:40 2.5 MG Ipratropium [place] 0.5 mg Q4HPRN PRN NEB 10/03/25 04:45 Albumin Human 100 ml @ 100 mls/hr ANABELLA PRN IV 10/03/25 09:45 10/03/25 11:20 100 MLS/HR Aspirin 81 mg DAILY NG 10/05/25 10:00 10/05/25 08:28 81 MG Enteral Nutritional Formula 1,000 ml 40ML/HR GT 10/04/25 18:30 10/04/25 21:02 1,000 ML Examination General: Patient is intubated, sedated, mechanically ventilated, non-reactive to painful stimulus HEENT: Normocephalic, atraumatic, 3 mm minimally reactive, no EOM, pink conjunctiva, pink moist mucous membrane, ET tube in place, orogastric tube in palce Respiratory/pulmonary: Bilateral chest expansion, decreased breath sounds bilaterally Cardiovascular: Normal RRR Abdomen: Obese, Abdomen nondistended, normal bowel sounds, soft, no grimacing is observed on palpation, no palpable masses. Extremities: No deformities, bilateral lower extremity pedal edema 2+ in calves with scrotal swelling, large red circular ulcers present in right calf, presence of femoral CVC in right groin region, pulses are present Skin: As above Neurological: cough and gag reflex absent laboratory and microbiology Laboratory Tests 10/05/25 03:14 Test 10/05/25 03:14 Range/Units Serum Glucose 74 74-106 mg/dL Microbiology Date/Time Source Procedure Growth Status 10/02/25 17:33 Blood Blood Culture - Preliminary NO GROWTH AFTER 48 HOURS OF INCUBATION. Resulted 10/02/25 00:45 Leg Gram Stain - Final Complete 10/02/25 00:45 Wound Culture - Final Escherichia coli Complete Problem List/Assessment/Plan Problem List/Assessment/Plan Assessment and Plan: Neurology # Sedated - Propofol 20 - Fentanyl 50 # Encephalomalacia - Head CT 09/26/2025: Bilateral cerebral encephalomalacia # Global cerebral volume loss - Head CT 09/26/2025: Mild global cerebral volume loss # epilepsy - Oxycarbazepine # Concern for anoxic brain injury - Head CT has been ordered #History of CVA in 2013 Cardiovascular #S/p Cardiac arrest with ROSC - 09/26/2025: Witnessed at dialysis center, bystanders started CPR and AED use, ROSC achieved before EMS arrived - 10/01/2025: Rhythm: Asystole, ROSC achieved after 7 minutes of CPR - 10/01/2025: Rhythm: Asystole, ROSC achieved after 11 minutes of CPR - 10/01/2025: Rhythm: Asystole, ROSC achieved after 2 minutes of CPR # Cardiogenic shock # Lactic acidosis likely due to above - Cultures are pending - Levophed 2 mcg - Epinephrine has been discontinued # Acute on chronic HFrEF - BNP 1232.11 - Echocardiogram 08/22/2025: LVEF of 20-25%, Severe LV dysfunction, moderate mitral regurgitation - Per cardiology: Diuretics with lasix, aspirin, nitroglycerin SL - Lasix 40 mg IV daily - S/p pacemaker placement # Bilateral pleural effusion - Chest xray 09/26/2025: The lungs demonstrate bilateral patchy airspace opacities. The pulmonary vasculature is prominent. Small bilateral pleural effusions. #Hypertension - Amlodipine held by nephrology Respiratory # Acute hypoxic respiratory failure # Ventilator -Intubated (10/01/2025) -On [facility] vent : VCAC Mode RR 18 TV 500ml, PEEP Of 5 and FiO2 of 50% - 8.0 endotracheal tube, 24 at the lip - Cutlures from sputum: Normal orophargyngeal elpidio GI # Peptic ulcer prophylaxis -Pantoprazole 40 mg IV daily # Salas catheter draining clear urine Nephrology # ESRD on hemodialysis - Received dialysis without complication 09/29/2025 - S/p Cardiac arrest during dialysis 10/01/2025 - Per nephrology, the patient is scheduled for hemodialysis tomorrow - Strict Is and Os # Severe diabetic nephropathy #Acute metabolic alkalosis # Secondary hyperparathyroidism # Hypocalcemia - Monitor - Calcitrol # Hyperphosphatemia - Phosphate binders Infectious disease # Possible cellulitis secondary to lower extremity ulcers - Ceftriaxone - Wound culture: E. coli - Wound care is on board #Septic vs Cardiogenic shock - Cultures: Gram-positive cocci in pairs/chains - Ceftriaxone 1 g IV daily Hem/onc #Thrombocytopenia - Monitor #Normocytic anemia, likely due to chronic disease - Monitor Hand H - Per nephrology: Epogen 00237 SQ 3 weekly as tolerated Endocrine #Type 2 diabetes mellitus - SSI -Accu cheks MSK # Gout - Allopurinol 300 mg PO daily Marijuana use DVT prophylaxis: SCD PUD prophylaxis: Pantoprazole 40 mg IV daily Lines -R femoral central line: 10/01/2025 -Salas catheter 09/27/2025 -ET tube: 10/01/2025 - Tunneled catheter in right pectoral region Patient has right femoral line given the presence of right tunnel catheter in right pectoral region and pacemaker in left field. Drips during [facility] ventilation Fentanyl 50 Propofol: 25 Bicarbonate drip discontinued Levophed 2 mcg Critical care time 57 minutes excluding procedure. Code status discussed greater than 20 minutes: Full CODE STATUS. Sister, Claudia Burnett, was updated over the phone. Plan discussed with Dr Walter Plan discussed with: Other (Sister (Claudia), Nurse (Dominique)) My Orders My Orders Orders - RERE SEO RESIDENT Procedure Category Date Status Time Aspirin Chewable PHA 10/05/25 In Process Tablet 10:00 Abg W/ Co-Ox RT 10/05/25 Logged 04:00 Chest Xray 1 View XY 10/05/25 Resulted 04:00 Ventilator Orders RT 10/04/25 Transmitted 17:29 Ventilator Orders RT 10/05/25 Transmitted 05:32 Dietary Evaluation Review Comments: Nutrition Recommendation: 1) CCHO 75gm + renal standard diet 2) Pro-stat 1 pk BID 3) Nephro-nellie 1 tab daily 4) Monitor PO intake, lab values, weight trend, and I/O Expected Outcomes/Goals: Wound to improve Intake to meet >75% estimated needs FU 3-5 days Visit Coding STANDARD RES Billing Provider: ANANT WALTER MD Date of Service if different f: Oct 05, 2025 Common Visit Codes: 33490-[id number] CARE 30-74 MIN RERE SEO RESIDENT Oct 05, 2025 13:51 ANANT WALTER MD Oct 06, 2025 14:44
[2025-10-05] MEDS: EPOETIN ALFA-EPBX 10,000 UNIT/1ML VIAL SC ONE (23:12)
[2025-10-06] VITALS (107 sets, daily range): BP systolic 80–147; BP diastolic 17–66; PULSE 60–72; RESP 14–20; TEMP 94.6–99.1; O2SAT 92–100
--- NOTE | 2025-10-06 05:10 | DVH ---
CHEST RADIOGRAPH Indication: Intubated Technique: Single frontal view of the chest was obtained COMPARISON: XY CHEST XRAY 1 VIEW on DOS: 10/05/25, XY CHEST XRAY 1 VIEW on DOS: 10/04/25, XY CHEST XRAY 1 VIEW on DOS: 10/03/25, XY CHEST XRAY 1 VIEW on DOS: 10/02/25, XY CHEST PORTABLE on DOS: 10/01/25 FINDINGS: Lines and Tubes: Unchanged. Lungs: Stable appearing bandlike atelectasis within the right lung base. Small bilateral pleural effusions. No pneumothorax. Cardiomediastinal contours: Cardiomegaly. Bones: Unremarkable IMPRESSION: 1. Lines and tubes unchanged. 2. Cardiomegaly and small bilateral pleural effusions. 3. Stable appearing right basilar bandlike atelectasis.
--- NOTE | 2025-10-06 07:00 | DVHPN2 ---
Progress Note - Dictate Date Seen: Oct 06, 2025 Medical Necessity Reason Pt with a Central, PICC or Fol: No The following are medically ne: Central Line, Salas Catheter Subjective No acute events overnight, remains on ventilator vital signs Vital Sign Date Time Temp Pulse Resp B/P (MAP) Pulse Ox O2 Delivery O2 Flow Rate FiO2 10/06/25 06:07 60 18 94/30 (51) 95 35 10/06/25 04:00 Mechanical Ventilator+ 10/05/25 18:00 97.1 97.1 Total Intake and Output 10/05/25 10/05/25 10/06/25 15:00 23:00 07:00 Intake Total 273.69 ml 431.54 ml Output Total 3050 ml Balance 273.69 ml -2618.46 ml medications Current Medications Medications Dose Ordered Sig/Esteban Route Start Time Stop Time Status Last Admin Dose Admin Famotidine 20 mg DAILY IV 09/27/25 10:00 10/05/25 08:27 20 MG Diagnostic Test (Pha) 1 strip ACHS 09/26/25 22:00 10/05/25 23:15 1 STRIP Insulin Human Regular ACHS SC 09/26/25 22:00 10/02/25 06:52 2 UNITS Dextrose 50 ml UD PRN IV 09/26/25 21:15 Sodium Chloride 10 ml Q8HR IV 09/26/25 22:00 10/05/25 23:17 10 ML Sevelamer HCl 800 mg TIDWM PO 09/29/25 18:00 10/03/25 16:40 800 MG Oxcarbazepine 450 mg Q12HR PO 09/29/25 22:00 10/05/25 23:13 450 MG Amino Acid Protein 30 ml BID PO 09/30/25 22:00 10/05/25 23:14 30 ML Multivit/Ca Carb/ B Cmplx/FA/Prenat 1 tab DAILY PO 09/30/25 11:12 10/05/25 08:27 1 TAB Ceftriaxone Sodium 50 ml @ 100 mls/hr DAILY@09 IV 10/02/25 09:00 10/05/25 08:28 100 MLS/HR Epinephrine HCl 250 ml @ 7.5 mls/hr Q24H IV 10/01/25 15:15 10/01/25 15:39 15 MLS/HR Norepinephrine Bitartrate 250 ml @ 3.75 mls/hr Q24H IV 10/01/25 15:15 10/05/25 08:30 3.75 MLS/HR Propofol 100 ml @ 3.936 mls/ hr Q24H IV 10/01/25 15:15 10/06/25 05:23 19.68 MLS/HR Fentanyl Citrate 250 ml @ 2.5 mls/hr Q24H IV 10/01/25 15:15 10/03/25 05:43 7.5 MLS/HR Albuterol 2.5 mg Q4HPRN PRN NEB 10/03/25 04:45 10/05/25 08:40 2.5 MG Ipratropium [place] 0.5 mg Q4HPRN PRN NEB 10/03/25 04:45 Albumin Human 100 ml @ 100 mls/hr ANABELLA PRN IV 10/03/25 09:45 10/05/25 14:15 100 MLS/HR Aspirin 81 mg DAILY NG 10/05/25 10:00 10/05/25 08:28 81 MG Enteral Nutritional Formula 1,000 ml 40ML/HR GT 10/04/25 18:30 10/04/25 21:02 1,000 ML objective Gen: nad, intubated lungs: cta anteriorly cvs: no rub abd: soft, bowel sounds audible ext: + edema laboratory and microbiology Laboratory Tests 10/05/25 03:14 Test 10/05/25 03:14 Range/Units Serum Glucose 74 74-106 mg/dL Assessment/Plan End-stage renal disease on hemodialysis Acute respiratory failure, patient intubated on ventilator Status post cardiac arrest x3 Decompensated heart failure with ejection fraction less than 25% Diabetes with severe diabetic nephropathy Severe peripheral artery disease Anemia of chronic kidney disease Encephalomalacia Hyperphosphatemia Hyperparathyroidism, secondary Recommendations - next hemodialysis October 07 - patient tolerated approximately 3 L of ultrafiltration yesterday on dialysis. - we will continue to follow NSS daily for kidney replacement needs. Dietary Evaluation Review Comments: Nutrition Recommendation: 1) CCHO 75gm + renal standard diet 2) Pro-stat 1 pk BID 3) Nephro-nellie 1 tab daily 4) Monitor PO intake, lab values, weight trend, and I/O Expected Outcomes/Goals: Wound to improve Intake to meet >75% estimated needs FU 3-5 days Plan discussed with: STEPHANIA Sanchez MD Oct 06, 2025 07:00
[2025-10-06 07:32] LABS: Base Excess 0.9 mmol/L (-2.0-3.0)
[2025-10-06 07:47] LABS: Chloride 100 mmol/L (98-107); Potassium 4.5 mmol/L (3.5-5.1); Sodium 139 mmol/L (136-145)
[2025-10-06 07:48] LABS: Anion Gap 10 (5-15); Carbon Dioxide 29 mmol/L (20-31)
[2025-10-06 07:52] LABS: Calcium 8.4 mg/dL (8.7-10.4)
[2025-10-06 07:53] LABS: BUN/Creatinine Ratio 7.9 (10.0-20.0); Glucose 96 mg/dL (74-106)
[2025-10-06 07:57] LABS: Blood Urea Nitrogen 53 mg/dL (9-23)
[2025-10-06 09:01] LABS: Nucleated Red Blood Cells % 0.3 %
[2025-10-06 09:02] LABS: Hematocrit 23.8 % (41.0-53.0); Hemoglobin 7.6 g/dL (13.5-17.5); Mean Corpuscular Hemoglobin 31.1 pg (28.0-32.0); Mean Corpuscular Volume 97.5 fL (80.0-100.0)
--- NOTE | 2025-10-06 15:45 | DVHPNRES ---
Progress Note Date Seen: Oct 06, 2025 Resident Creating Document: RERE SEO RESIDENT Medical Necessity Reason Pt with a Central, PICC or Fol: No The following are medically ne: Central Line, Salas Catheter Subjective Review of Systems Mr. Zamora is a 59 year old male with PMHx of ESRD with recent initiation of dialysis approximately 2 weeks ago , HFrEF with pacemaker placement, CVA in 2012, type 2 diabetes mellitus, gout, and hypertension, who presented to [facility] due to witnessed cardiopulmonary arrest during dialysis on 09/26/2025. At the time of evaluation the patient is sedated and intubated, majority of history is taken from previous medical record and his sister, Claudia Burnett. Per record, the patient became unresponsive during hemodialysis, CPR was intiated by bystanders and AED was used, by the time EMS arrived on scene the patient was found A&Ox4, GCS15, and moaning in pain. On evaluation in the ED, patient was complaining of dyspnea and chest wall pain. He was afebrile, normocardic with pacedc rhythm, hypertensive, and saturating adequately on room air. EKG showed paced rhythm with widened QTc. Initial labs are significant for normocytic anemia, hypokalemia, creatinine 6.85, BUN 43, and BNP 1232.11. Troponins were negative. UA without alteration. Chest xray significant for lungs with bilateral patchy airspace opacities, prominent pulmonary vasculature, with small bilateral pleural effusions. Head CT shows bilateral cerebral encephalomalacia and mild global cerebral volume loss without intracranial hemorrhage or mass effect. The patient was started on IV diuresis and admitted for further work up and managment. He was evaluated by cardiology who continued diuresis. The patient was evaluated by nephrology who state that given diminished cardiac function likely patient cannot tolerate large ultrafiltration goals. He was scheduled for further dialysis, having undergone dialysis on 09/28/2025 without issue. He was receiving dialysis on 10/01/2025 when he became bradycardic and went into asystole. Martine jarrell was called and CPR was intiated with ROSC achieved after 7 minutes of CPR. He was transferred to the ICU and he entered asystole two more times in a span of 15 minutes a with ROSC achieved after 11 minutes of CPR and at 2 minutes of CPR respectively. He was intubated and started on pressors, sedation, antibiotics, and bicarbonate drip. On initial evaluation in the ICU, the patient is intubated, sedated, and mechanically ventilated, on levophed 2 mcg, pupils are reactive, no response to painful stimulus, cough and gag are present. Labs are significant for normocytic anemia, worsening thrombocytopenia, and worsening renal function. ABG is significant for metabolic alkalosis. Most recent chest xray shows worsening congestion. Past medical history: ESRD on dialysis, HFrEF, CVA in 2013, Type 2 diabetes mellitus, and hypertension Past surgical history: Pacemaker placement and replacement, Right femoral fracture repair Allergies: Denies Social: Per sister, the patient currently smokes marijuana, denies other drug use. Patient currently lives with his mother and his brother. Home meds: Famotidine, Allopurinol, pregabalin, furosemide, sevelamer, metoprolol, and lokelma 10/06/2025: Patient seen in the ICU. He is intubated, sedated, and mechanically ventilated. Continues on levophed. Per nurse, it was reported overnight that patient continues to desaturate when moved. Labs are stable. Blood cultures are showing no growth at 72 hours. Patient is pending head CT for evaluation of possible anoxic injury. We will continue to follow. 10/05/2025: Patient seen in the ICU. He is intubated, sedated, and mechanically ventilated. Overnight levophed had to be resumed. Per nurse, he continues to present desaturations to the 70s when moved. Additionally the patient continues to reach peak pressures on the vent for which sedation was increased. Labs are stable. Lab was contacted today to confirm blood culture results as they did not appear on the EMR, per lab patient's blood cultures are not going any organisms at this time. Chest xray today shows interval improvement. The patient is scheduled for dialysis today. Due to lack of cough and gag and minimally reactive pupils in the context of a patient post cardiac arrest x3, there is concern of anoxic brain injury. Head CT has been ordered. 10/04/2025: Patient seen in the ICU. He is intubated, sedated, and mechanically ventilated. Currently off pressors. Per nurse, patient presented desaturations to the 50s when moved has elevated peak pressures on the ventilator. Labs are significant for and a decrease in hemoglobin, renal function is stable at this time, he will undergo dialysis tomorrow. Blood cultures are currently growing Gram-positive cocci in pairs, for which he is currently be covered with ceftriaxone. We will continue to monitor. 10/03/2025: Patient seen and examined at bedside, patient has completed hemodialysis this morning, decrease sedation today, patient was taken off levophed. Per nurse, the patient will desaturate to 50s when moved. He is afebrile, normocardic, with MAP within normal range. He underwent dialysis yesterday with removal of 3 L. Blood cultures are growing gram positive cocci in pairs/ chain and wound cultures are growing E. coli. Patient will remain on ceftriaxone . Objective vital signs Vital Sign Date Time Temp Pulse Resp B/P (MAP) Pulse Ox O2 Delivery O2 Flow Rate FiO2 10/06/25 15:00 109/21 10/06/25 14:20 61 18 95 35 10/06/25 07:40 Mechanical Ventilator+ 10/05/25 18:00 97.1 97.1 Total Intake and Output 10/05/25 10/05/25 10/06/25 15:00 23:00 07:00 Intake Total 273.69 ml 566.19 ml 204.94 ml Output Total 3050 ml 10 ml Balance 273.69 ml -2483.81 ml 194.94 ml medications Current Medications Medications Dose Ordered Sig/Esteban Route Start Time Stop Time Status Last Admin Dose Admin Famotidine 20 mg DAILY IV 09/27/25 10:00 10/06/25 09:54 20 MG Diagnostic Test (Pha) 1 strip ACHS 09/26/25 22:00 10/06/25 12:26 1 STRIP Insulin Human Regular ACHS SC 09/26/25 22:00 10/02/25 06:52 2 UNITS Dextrose 50 ml UD PRN IV 09/26/25 21:15 Sodium Chloride 10 ml Q8HR IV 09/26/25 22:00 10/06/25 13:55 10 ML Sevelamer HCl 800 mg TIDWM PO 09/29/25 18:00 10/06/25 13:55 800 MG Amino Acid Protein 30 ml BID PO 09/30/25 22:00 10/05/25 23:14 30 ML Multivit/Ca Carb/ B Cmplx/FA/Prenat 1 tab DAILY PO 09/30/25 11:12 10/06/25 09:53 1 TAB Ceftriaxone Sodium 50 ml @ 100 mls/hr DAILY@09 IV 10/02/25 09:00 10/06/25 09:54 100 MLS/HR Epinephrine HCl 250 ml @ 7.5 mls/hr Q24H IV 10/01/25 15:15 10/01/25 15:39 15 MLS/HR Norepinephrine Bitartrate 250 ml @ 3.75 mls/hr Q24H IV 10/01/25 15:15 10/06/25 09:44 3.75 MLS/HR Propofol 100 ml @ 3.936 mls/ hr Q24H IV 10/01/25 15:15 10/06/25 13:55 19.68 MLS/HR Fentanyl Citrate 250 ml @ 2.5 mls/hr Q24H IV 10/01/25 15:15 10/06/25 09:53 5 MLS/HR Albuterol 2.5 mg Q4HPRN PRN NEB 10/03/25 04:45 10/05/25 08:40 2.5 MG Ipratropium [place] 0.5 mg Q4HPRN PRN NEB 10/03/25 04:45 Albumin Human 100 ml @ 100 mls/hr ANABELLA PRN IV 10/03/25 09:45 10/05/25 14:15 100 MLS/HR Aspirin 81 mg DAILY NG 10/05/25 10:00 10/06/25 09:54 81 MG Enteral Nutritional Formula 1,000 ml 40ML/HR GT 10/04/25 18:30 10/04/25 21:02 1,000 ML Examination General: Patient is intubated, sedated, mechanically ventilated, non-reactive to painful stimulus HEENT: Normocephalic, atraumatic, 3 mm minimally reactive, no EOM, pink conjunctiva, pink moist mucous membrane, ET tube in place, orogastric tube in palce Respiratory/pulmonary: Bilateral chest expansion, decreased breath sounds bilaterally Cardiovascular: Normal RRR Abdomen: Obese, Abdomen nondistended, normal bowel sounds, soft, no grimacing is observed on palpation, no palpable masses. Extremities: No deformities, bilateral lower extremity pedal edema 2+ in calves with scrotal swelling, large red circular ulcers present in right calf, presence of femoral CVC in right groin region, pulses are present Skin: As above Neurological: cough and gag reflex absent laboratory and microbiology Laboratory Tests 10/06/25 06:20 Test 10/06/25 06:20 Range/Units Serum Glucose 96 74-106 mg/dL Microbiology Date/Time Source Procedure Growth Status 10/02/25 17:33 Blood Blood Culture - Preliminary NO GROWTH AFTER 72 HOURS OF INCUBATION. Resulted 10/02/25 00:45 Leg Gram Stain - Final Complete 10/02/25 00:45 Wound Culture - Final Escherichia coli Complete Problem List/Assessment/Plan Problem List/Assessment/Plan Assessment and Plan: Neurology # Sedated - Propofol 25 mcg/kg/hr - Fentanyl 50 mcg/hr # Encephalomalacia - Head CT 09/26/2025: Bilateral cerebral encephalomalacia # Global cerebral volume loss - Head CT 09/26/2025: Mild global cerebral volume loss # epilepsy - Oxycarbazepine - hled # Concern for anoxic brain injury - Head CT has been ordered #History of CVA in 2012 Cardiovascular #S/p Cardiac arrest with ROSC - 09/26/2025: Witnessed at dialysis center, bystanders started CPR and AED use, ROSC achieved before EMS arrived - 10/01/2025: Rhythm: Asystole, ROSC achieved after 7 minutes of CPR - 10/01/2025: Rhythm: Asystole, ROSC achieved after 11 minutes of CPR - 10/01/2025: Rhythm: Asystole, ROSC achieved after 2 minutes of CPR # Cardiogenic shock # Lactic acidosis likely due to above - Cultures are pending - Levophed 2 mcg - Epinephrine has been discontinued # Acute on chronic HFrEF - BNP 1232.11 - Echocardiogram 08/22/2025: LVEF of 20-25%, Severe LV dysfunction, moderate mitral regurgitation - Per cardiology: Diuretics with lasix, aspirin, nitroglycerin SL - Lasix 40 mg IV daily - S/p pacemaker placement # Bilateral pleural effusion - Chest xray 09/26/2025: The lungs demonstrate bilateral patchy airspace opacities. The pulmonary vasculature is prominent. Small bilateral pleural effusions. #Hypertension - Amlodipine held by nephrology Respiratory # Acute hypoxic respiratory failure # Ventilator -Intubated (10/01/2025) -On [facility] vent : VCAC Mode RR 18 TV 500ml, PEEP Of 5 and FiO2 of 50% - 8.0 endotracheal tube, 24 at the lip - Cutlures from sputum: Normal orophargyngeal elpidio GI # Peptic ulcer prophylaxis -Pantoprazole 40 mg IV daily # Salas catheter draining clear urine Nephrology # ESRD on hemodialysis - Received dialysis without complication 09/29/2025 - S/p Cardiac arrest during dialysis 10/01/2025 - Per nephrology, the patient is scheduled for hemodialysis tomorrow - Strict Is and Os # Severe diabetic nephropathy #Acute metabolic alkalosis # Secondary hyperparathyroidism # Hypocalcemia - Monitor - Calcitrol # Hyperphosphatemia - Phosphate binders Infectious disease # Possible cellulitis secondary to lower extremity ulcers - Ceftriaxone - Wound culture: E. coli - Wound care is on board #Septic vs Cardiogenic shock - Cultures: Negative at 72 hours - Ceftriaxone 1 g IV daily Hem/onc #Thrombocytopenia, improved - Monitor #Normocytic anemia, likely due to chronic disease - Monitor Hand H - Per nephrology: Epogen 06682 SQ 3 weekly as tolerated Endocrine #Type 2 diabetes mellitus - SSI -Accu cheks MSK # Gout - Allopurinol 300 mg PO daily Marijuana use DVT prophylaxis: SCD PUD prophylaxis: Pantoprazole 40 mg IV daily Lines -R femoral central line: 10/01/2025 -Salas catheter 09/27/2025 -ET tube: 10/01/2025 - Tunneled catheter in right pectoral region Patient has right femoral line given the presence of right tunnel catheter in right pectoral region and pacemaker in left field. Patient is pending head CT for evaluation of possible anoxic brain injury Drips during [facility] ventilation Fentanyl 50 Propofol: 25 Bicarbonate drip discontinued Levophed 2 mcg Critical care time 54 minutes excluding procedure. Code status discussed greater than 20 minutes: Full CODE STATUS. Sister, Claudia Lex, was updated over the phone. Plan discussed with Dr Walter Plan discussed with: Other (Sister (Claudia), Nurse (Luanne)) My Orders My Orders Orders - RERE SEO RESIDENT Procedure Category Date Status Time Abg W/ Co-Ox RT 10/06/25 Logged 04:00 Chest Xray 1 View XY 10/06/25 Resulted 04:[address] 10/06/25 Logged 07:00 Dietary Evaluation Review Comments: Nutrition Recommendation: 1) CCHO 75gm + renal standard diet 2) Pro-stat 1 pk BID 3) Nephro-nellie 1 tab daily 4) Monitor PO intake, lab values, weight trend, and I/O Expected Outcomes/Goals: Wound to improve Intake to meet >75% estimated needs FU 3-5 days Visit Coding STANDARD RES Billing Provider: ANANT WALTER MD Date of Service if different f: Oct 06, 2025 Common Visit Codes: 61393-[id number] CARE 30-74 MIN RERE SEO RESIDENT Oct 06, 2025 15:45 ANANT WALTER MD Oct 07, 2025 16:46
--- NOTE | 2025-10-06 16:58 | DVH ---
EXAM: CT HEAD WITHOUT CONTRAST INDICATION: post cardiac arrest COMPARISON: CT HEAD WITHOUT CONTRAST on DOS: 09/26/25 TECHNIQUE: CT of the head without intravenous contrast. Radiation Dose Information: CT Dose: CTDI volume is 63.99 mGy. Dose-length product is 1388.86 mGy*cm The dose indicators for CT are the volume Computed Tomography (CT) Dose Index (CTDIvol) and the Dose Length Product (DLP), and are measured in units of mGy and mGy-cm, respectively. These indicators are not patient dose, but values generated from the CT scanner acquisition factors. The report includes radiation exposure data for exposures received during this examination. FINDINGS: Hypoattenuation in the periventricular and subcortical white matter, suggestive of chronic microvascular disease. The ventricles and sulci are mildly enlarged, compatible with generalized parenchymal volume loss. There is no mass-effect, hemorrhage, midline shift, or abnormal extra-axial fluid collection visible. No calvarial fracture. Old infarcts involving the bilateral parietal lobes and occipital lobes. Age indeterminate Inferior involving the right cerebellum. Scattered mucosal thickening of the paranasal sinuses. Bilateral mastoid air cell effusion. IMPRESSION: No acute intracranial hemorrhage or mass effect. Age indeterminate small infarct involving the right cerebellum, favored to be chronic. If there is clinical concern for acute infarct, recommend MRI for further evaluation. 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
--- NOTE | 2025-10-06 21:17 | DVHPN2 ---
Progress Note - Dictate Date Seen: Oct 06, 2025 Medical Necessity Reason Pt with a Central, PICC or Fol: No The following are medically ne: Central Line, Salas Catheter Subjective Patient was seen and evaluated in follow up in the ICU. Patient is intubated and sedated on ventilator. 35% FiO2. Wound cultures are growing E. coli. HGB 7.6, HCT 23.8, BUN 53, FISCAL OFFICER 6.72, CA 8.4. Chest x-ray shows cardiomegaly and small bilateral pleural effusions and stable appearing right basilar bandlike atelectasis. vital signs Vital Sign Date Time Temp Pulse Resp B/P (MAP) Pulse Ox O2 Delivery O2 Flow Rate FiO2 10/06/25 13:55 90/37 10/06/25 12:33 60 18 95 35 10/06/25 07:40 Mechanical Ventilator+ 10/05/25 18:00 97.1 97.1 Total Intake and Output 10/05/25 10/05/25 10/06/25 14:59 22:59 06:59 Intake Total 262.068 ml 566.19 ml 208.69 ml Output Total 3050 ml 10 ml Balance 262.068 ml -2483.81 ml 198.69 ml medications Current Medications Medications Dose Ordered Sig/Esteban Route Start Time Stop Time Status Last Admin Dose Admin Famotidine 20 mg DAILY IV 09/27/25 10:00 10/06/25 09:54 20 MG Diagnostic Test (Pha) 1 strip ACHS 09/26/25 22:00 10/06/25 12:26 1 STRIP Insulin Human Regular ACHS SC 09/26/25 22:00 10/02/25 06:52 2 UNITS Dextrose 50 ml UD PRN IV 09/26/25 21:15 Sodium Chloride 10 ml Q8HR IV 09/26/25 22:00 10/06/25 13:55 10 ML Sevelamer HCl 800 mg TIDWM PO 09/29/25 18:00 10/06/25 13:55 800 MG Oxcarbazepine 450 mg Q12HR PO 09/29/25 22:00 10/05/25 23:13 450 MG Amino Acid Protein 30 ml BID PO 09/30/25 22:00 10/05/25 23:14 30 ML Multivit/Ca Carb/ B Cmplx/FA/Prenat 1 tab DAILY PO 09/30/25 11:12 10/06/25 09:53 1 TAB Ceftriaxone Sodium 50 ml @ 100 mls/hr DAILY@09 IV 10/02/25 09:00 10/06/25 09:54 100 MLS/HR Epinephrine HCl 250 ml @ 7.5 mls/hr Q24H IV 10/01/25 15:15 10/01/25 15:39 15 MLS/HR Norepinephrine Bitartrate 250 ml @ 3.75 mls/hr Q24H IV 10/01/25 15:15 10/06/25 09:44 3.75 MLS/HR Propofol 100 ml @ 3.936 mls/ hr Q24H IV 10/01/25 15:15 10/06/25 13:55 19.68 MLS/HR Fentanyl Citrate 250 ml @ 2.5 mls/hr Q24H IV 10/01/25 15:15 10/06/25 09:53 5 MLS/HR Albuterol 2.5 mg Q4HPRN PRN NEB 10/03/25 04:45 10/05/25 08:40 2.5 MG Ipratropium [place] 0.5 mg Q4HPRN PRN NEB 10/03/25 04:45 Albumin Human 100 ml @ 100 mls/hr ANABELLA PRN IV 10/03/25 09:45 10/05/25 14:15 100 MLS/HR Aspirin 81 mg DAILY NG 10/05/25 10:00 10/06/25 09:54 81 MG Enteral Nutritional Formula 1,000 ml 40ML/HR GT 10/04/25 18:30 10/04/25 21:02 1,000 ML objective GENERAL: Ill appearing, intubated on ventilator. Morbidly obese. EYES: PERRL, EOMI. Anicteric. HENT: Moist mucous membranes. LUNGS: Decreased breath sounds. CARDIOVASCULAR: Regular rate and rhythm. ABDOMEN: Soft, non-tender and non-distended. EXTREMITIES: No edema. SKIN: Warm, dry. laboratory and microbiology Laboratory Tests 10/06/25 06:20 Test 10/06/25 06:20 Range/Units Serum Glucose 96 74-106 mg/dL Problem List Acute syncopal episode. Status post cardiac arrest x3. ESRD on hemodialysis. Hypertension. Peripheral neuropathy. Severe peripheral artery disease. Acute on chronic congestive heart failure exacerbation. History of CVA. Anemia of chronic disease. Diabetes with severe diabetic nephropathy. History of pacemaker. Morbidly obese. Decompensated heart failure with ejection fraction less than 25%. Encephalomalacia. Hyperphosphatemia. Hyperparathyroidism. Assessment/Plan Continued all current supportive medical care. Aspirin. IV antibiotics as ordered. Morphine and [place] for pain management. Vasopressors for hemodynamic support. Additional plan as per the hospital course. Critical care time of 45 minutes provided to include time spent evaluation of patient at bedside, when appropriate patient/family education for diagnosis, treatment plan, review of pertinent medical information and discussion of care with specialty providers and PCP. Mechanical ventilator parameters, treatment and adjustments have personally been reviewed by me and treatment plan by blueprint engineer has also been reviewed. Dietary Evaluation Review Comments: Nutrition Recommendation: 1) CCHO 75gm + renal standard diet 2) Pro-stat 1 pk BID 3) Nephro-nellie 1 tab daily 4) Monitor PO intake, lab values, weight trend, and I/O Expected Outcomes/Goals: Wound to improve Intake to meet >75% estimated needs FU 3-5 days Plan discussed with: Other MATTHEW CIFUENTES MD Oct 06, 2025 14:17
[2025-10-07] VITALS (109 sets, daily range): BP systolic 15–180; BP diastolic 17–89; PULSE 60–102; RESP 13–25; TEMP 97.9–100.2; O2SAT 91–100
[2025-10-07 03:26] LABS: Hemoglobin 8.4 g/dL (13.5-17.5)
[2025-10-07 03:29] LABS: Hematocrit 26.2 % (41.0-53.0); Mean Corpuscular Hemoglobin 31.4 pg (28.0-32.0); Mean Corpuscular Volume 97.5 fL (80.0-100.0); Nucleated Red Blood Cells % 0.3 %
[2025-10-07 03:44] LABS: Alanine Aminotransferase 11 U/L (7-40); Anion Gap 12 (5-15); BUN/Creatinine Ratio 7.7 (10.0-20.0); Bilirubin, Total 0.4 mg/dL (0.2-1.0); Carbon Dioxide 28 mmol/L (20-31); Chloride 98 mmol/L (98-107); Potassium 4.6 mmol/L (3.5-5.1); Sodium 138 mmol/L (136-145); Total Protein 6.3 g/dL (5.7-8.2)
[2025-10-07 03:47] LABS: Albumin 3.1 g/dL (3.2-4.8); Alkaline Phosphatase 173 U/L (46-116); Blood Urea Nitrogen 56 mg/dL (9-23); Calcium 8.4 mg/dL (8.7-10.4); Glucose 113 mg/dL (74-106)
--- NOTE | 2025-10-07 05:24 | DVH ---
CHEST RADIOGRAPH INDICATION: Intubated TECHNIQUE: Single frontal view of the chest was obtained COMPARISON: XY CHEST XRAY 1 VIEW on DOS: 10/06/25, XY CHEST XRAY 1 VIEW on DOS: 10/05/25, XY CHEST XRAY 1 VIEW on DOS: 10/04/25, XY CHEST XRAY 1 VIEW on DOS: 10/03/25, XY CHEST XRAY 1 VIEW on DOS: 10/02/25 FINDINGS: Lines and Tubes: The endotracheal tube appears to be partially silhouetted by the overlying enteric catheter and the tip is estimated to project approximately 7.1 cm above the level of the tiburcio. Remaining Lines and tubes unchanged. Lungs: Stable appearing right lower lung zone bandlike atelectasis and mild diffuse increased prominence of the pulmonary vasculature. Small bilateral pleural effusions. Pleura: No effusion. No pneumothorax. Cardiomediastinal contours: Cardiomegaly. Bones: Unremarkable IMPRESSION: 1. The endotracheal tube appears to be partially silhouetted by the overlying enteric catheter and the tip is estimated to project approximately 7.1 cm above the level of the tiburcio. Remaining lines and tubes unchanged. 2. Cardiomegaly, right basilar bandlike atelectasis and small bilateral pleural effusions.
[2025-10-07 05:55] LABS: Base Excess 0.5 mmol/L (-2.0-3.0)
--- NOTE | 2025-10-07 10:40 | DVHPNRES ---
Progress Note Date Seen: Oct 07, 2025 Resident Creating Document: RERE SEO RESIDENT Medical Necessity Reason Pt with a Central, PICC or Fol: No The following are medically ne: Central Line, Salas Catheter Subjective Review of Systems Mr. Zamora is a 59 year old male with PMHx of ESRD with recent initiation of dialysis approximately 2 weeks ago , HFrEF with pacemaker placement, CVA in 2012, type 2 diabetes mellitus, gout, and hypertension, who presented to [facility] due to witnessed cardiopulmonary arrest during dialysis on 09/26/2025. At the time of evaluation the patient is sedated and intubated, majority of history is taken from previous medical record and his sister, Claudia Burnett. Per record, the patient became unresponsive during hemodialysis, CPR was intiated by bystanders and AED was used, by the time EMS arrived on scene the patient was found A&Ox4, GCS15, and moaning in pain. On evaluation in the ED, patient was complaining of dyspnea and chest wall pain. He was afebrile, normocardic with pacedc rhythm, hypertensive, and saturating adequately on room air. EKG showed paced rhythm with widened QTc. Initial labs are significant for normocytic anemia, hypokalemia, creatinine 6.85, BUN 43, and BNP 1232.11. Troponins were negative. UA without alteration. Chest xray significant for lungs with bilateral patchy airspace opacities, prominent pulmonary vasculature, with small bilateral pleural effusions. Head CT shows bilateral cerebral encephalomalacia and mild global cerebral volume loss without intracranial hemorrhage or mass effect. The patient was started on IV diuresis and admitted for further work up and managment. He was evaluated by cardiology who continued diuresis. The patient was evaluated by nephrology who state that given diminished cardiac function likely patient cannot tolerate large ultrafiltration goals. He was scheduled for further dialysis, having undergone dialysis on 09/28/2025 without issue. He was receiving dialysis on 10/01/2025 when he became bradycardic and went into asystole. Martine jarrell was called and CPR was intiated with ROSC achieved after 7 minutes of CPR. He was transferred to the ICU and he entered asystole two more times in a span of 15 minutes a with ROSC achieved after 11 minutes of CPR and at 2 minutes of CPR respectively. He was intubated and started on pressors, sedation, antibiotics, and bicarbonate drip. On initial evaluation in the ICU, the patient is intubated, sedated, and mechanically ventilated, on levophed 2 mcg, pupils are reactive, no response to painful stimulus, cough and gag are present. Labs are significant for normocytic anemia, worsening thrombocytopenia, and worsening renal function. ABG is significant for metabolic alkalosis. Most recent chest xray shows worsening congestion. Past medical history: ESRD on dialysis, HFrEF, CVA in 2013, Type 2 diabetes mellitus, and hypertension Past surgical history: Pacemaker placement and replacement, Right femoral fracture repair Allergies: Denies Social: Per sister, the patient currently smokes marijuana, denies other drug use. Patient currently lives with his mother and his brother. Home meds: Famotidine, Allopurinol, pregabalin, furosemide, sevelamer, metoprolol, and lokelma 10/07/2025: Patient seen in the ICU. He is intubated, sedated, and mechanically ventilated. Patient's blood pressure continues to be unstable, requiring continued pressor. He continues to desaturate when moved, requiring increasing oxygen supplementation. Labs are slightly improved. Patient continues to have sluggish pupils and no cough or gag reflex, Head CT shows presence of chornic changes with no acute intracranial abnormalities. We will continue to lower sedation to determine neurologic state. 10/06/2025: Patient seen in the ICU. He is intubated, sedated, and mechanically ventilated. Continues on levophed. Per nurse, it was reported overnight that patient continues to desaturate when moved. Labs are stable. Blood cultures are showing no growth at 72 hours. Patient is pending head CT for evaluation of possible anoxic injury. We will continue to follow. 10/05/2025: Patient seen in the ICU. He is intubated, sedated, and mechanically ventilated. Overnight levophed had to be resumed. Per nurse, he continues to present desaturations to the 70s when moved. Additionally the patient continues to reach peak pressures on the vent for which sedation was increased. Labs are stable. Lab was contacted today to confirm blood culture results as they did not appear on the EMR, per lab patient's blood cultures are not going any organisms at this time. Chest xray today shows interval improvement. The patient is scheduled for dialysis today. Due to lack of cough and gag and minimally reactive pupils in the context of a patient post cardiac arrest x3, there is concern of anoxic brain injury. Head CT has been ordered. 10/04/2025: Patient seen in the ICU. He is intubated, sedated, and mechanically ventilated. Currently off pressors. Per nurse, patient presented desaturations to the 50s when moved has elevated peak pressures on the ventilator. Labs are significant for and a decrease in hemoglobin, renal function is stable at this time, he will undergo dialysis tomorrow. Blood cultures are currently growing Gram-positive cocci in pairs, for which he is currently be covered with ceftriaxone. We will continue to monitor. 10/03/2025: Patient seen and examined at bedside, patient has completed hemodialysis this morning, decrease sedation today, patient was taken off levophed. Per nurse, the patient will desaturate to 50s when moved. He is afebrile, normocardic, with MAP within normal range. He underwent dialysis yesterday with removal of 3 L. Blood cultures are growing gram positive cocci in pairs/ chain and wound cultures are growing E. coli. Patient will remain on ceftriaxone . Objective vital signs Vital Sign Date Time Temp Pulse Resp B/P (MAP) Pulse Ox O2 Delivery O2 Flow Rate FiO2 10/07/25 09:48 119/54 10/07/25 09:45 18 96 Mechanical Ventilator+ 40 40 10/07/25 07:00 98.2 65 208.8 Total Intake and Output 10/06/25 10/06/25 10/07/25 15:00 23:00 07:00 Intake Total 595.94 ml 725.19 ml 603.76 ml Output Total 0 ml 5 ml 10 ml Balance 595.94 ml 720.19 ml 593.76 ml medications Current Medications Medications Dose Ordered Sig/Esteban Route Start Time Stop Time Status Last Admin Dose Admin Diagnostic Test (Pha) 1 strip ACHS 09/26/25 22:00 10/07/25 07:00 1 STRIP Insulin Human Regular ACHS SC 09/26/25 22:00 10/02/25 06:52 2 UNITS Dextrose 50 ml UD PRN IV 09/26/25 21:15 Sodium Chloride 10 ml Q8HR IV 09/26/25 22:00 10/07/25 06:00 10 ML Sevelamer HCl 800 mg TIDWM PO 09/29/25 18:00 10/06/25 17:48 800 MG Amino Acid Protein 30 ml BID PO 09/30/25 22:00 10/07/25 09:48 30 ML Multivit/Ca Carb/ B Cmplx/FA/Prenat 1 tab DAILY PO 09/30/25 11:12 10/07/25 09:46 1 TAB Ceftriaxone Sodium 50 ml @ 100 mls/hr DAILY@09 IV 10/02/25 09:00 10/07/25 09:45 100 MLS/HR Epinephrine HCl 250 ml @ 7.5 mls/hr Q24H IV 10/01/25 15:15 10/01/25 15:39 15 MLS/HR Norepinephrine Bitartrate 250 ml @ 3.75 mls/hr Q24H IV 10/01/25 15:15 10/06/25 09:44 3.75 MLS/HR Propofol 100 ml @ 3.936 mls/ hr Q24H IV 10/01/25 15:15 10/07/25 09:48 19.68 MLS/HR Fentanyl Citrate 250 ml @ 2.5 mls/hr Q24H IV 10/01/25 15:15 10/06/25 09:53 5 MLS/HR Albuterol 2.5 mg Q4HPRN PRN NEB 10/03/25 04:45 10/05/25 08:40 2.5 MG Ipratropium [place] 0.5 mg Q4HPRN PRN NEB 10/03/25 04:45 Albumin Human 100 ml @ 100 mls/hr ANABELLA PRN IV 10/03/25 09:45 10/05/25 14:15 100 MLS/HR Aspirin 81 mg DAILY NG 10/05/25 10:00 10/07/25 09:46 81 MG Enteral Nutritional Formula 1,000 ml 40ML/HR GT 10/04/25 18:30 10/06/25 21:26 1,000 ML Famotidine 10 mg HS IV 10/07/25 22:00 Examination General: Patient is intubated, sedated, mechanically ventilated, non-reactive to painful stimulus HEENT: Normocephalic, atraumatic, 3 mm minimally reactive, no EOM, pink conjunctiva, pink moist mucous membrane, ET tube in place, orogastric tube in palce Respiratory/pulmonary: Bilateral chest expansion, decreased breath sounds bilaterally Cardiovascular: Normal RRR Abdomen: Obese, Abdomen nondistended, normal bowel sounds, tense likely due to edema, no grimacing is observed on palpation, no palpable masses. Extremities: No deformities, bilateral lower extremity pedal edema 2+ in calves with scrotal swelling, large red circular ulcers present in right calf, presence of femoral CVC in right groin region, pulses are present, blisters present on left forearm Skin: Saccrococcyx 2.5x1.2x0.5cm, moist, open, full-thickness wound with moist red granulation tissue in the wound base and a mix of pale pink collagen scar tissue and dark brown adhered eschar material on the periwound area, there is minimal odor., darkened eschar lesions on his toes Neurological: cough and gag reflex absent laboratory and microbiology Laboratory Tests 10/07/25 02:48 Test 10/07/25 02:48 Range/Units Serum Glucose 113 H 74-106 mg/dL Microbiology Date/Time Source Procedure Growth Status 10/02/25 17:33 Blood Blood Culture - Preliminary NO GROWTH AFTER 72 HOURS OF INCUBATION. Resulted 10/02/25 00:45 Leg Gram Stain - Final Complete 10/02/25 00:45 Wound Culture - Final Escherichia coli Complete Problem List/Assessment/Plan Problem List/Assessment/Plan Assessment and Plan: Neurology # Sedated - Propofol 25 mcg/kg/hr - Fentanyl 50 mcg/hr # Encephalomalacia - Head CT 09/26/2025: Bilateral cerebral encephalomalacia # Global cerebral volume loss - Head CT 09/26/2025: Mild global cerebral volume loss # epilepsy - Oxycarbazepine - hled # Concern for anoxic brain injury - Head CT has been ordered #History of CVA in 2013 Cardiovascular #S/p Cardiac arrest with ROSC - 09/26/2025: Witnessed at dialysis center, bystanders started CPR and AED use, ROSC achieved before EMS arrived - 10/01/2025: Rhythm: Asystole, ROSC achieved after 7 minutes of CPR - 10/01/2025: Rhythm: Asystole, ROSC achieved after 11 minutes of CPR - 10/01/2025: Rhythm: Asystole, ROSC achieved after 2 minutes of CPR # Cardiogenic shock # Lactic acidosis likely due to above - Cultures are pending - Levophed 2 mcg - Epinephrine has been discontinued # Acute on chronic HFrEF - BNP 1232.11 - Echocardiogram 08/22/2025: LVEF of 20-25%, Severe LV dysfunction, moderate mitral regurgitation - Per cardiology: Diuretics with lasix, aspirin, nitroglycerin SL - Lasix 40 mg IV daily - S/p pacemaker placement # Bilateral pleural effusion - Chest xray 09/26/2025: The lungs demonstrate bilateral patchy airspace opacities. The pulmonary vasculature is prominent. Small bilateral pleural effusions. #Hypertension - Amlodipine held by nephrology Respiratory # Acute hypoxic respiratory failure # Ventilator -Intubated (10/01/2025) -On [facility] vent : VCAC Mode RR 18 TV 500ml, PEEP Of 5 and FiO2 of 50% - 8.0 endotracheal tube, 24 at the lip - Cutlures from sputum: Normal orophargyngeal elpidio GI # Peptic ulcer prophylaxis -Pantoprazole 40 mg IV daily # Salas catheter draining clear urine Nephrology # ESRD on hemodialysis - Received dialysis without complication 09/29/2025 - S/p Cardiac arrest during dialysis 10/01/2025 - Per nephrology, the patient is scheduled for hemodialysis tomorrow - Strict Is and Os # Severe diabetic nephropathy #Acute metabolic alkalosis # Secondary hyperparathyroidism # Hypocalcemia - Monitor - Calcitrol # Hyperphosphatemia - Phosphate binders Infectious disease # Possible cellulitis secondary to lower extremity ulcers - Ceftriaxone - Wound culture: E. coli - Wound care is on board #Septic vs Cardiogenic shock - Cultures: Negative at 72 hours - Ceftriaxone 1 g IV daily, discontinue Hem/onc #Thrombocytopenia, improved - Monitor #Normocytic anemia, likely due to chronic disease - Monitor Hand H - Per nephrology: Epogen 95553 SQ 3 weekly as tolerated Endocrine #Type 2 diabetes mellitus - SSI -Accu cheks MSK # Gout - Allopurinol 300 mg PO daily Skin # Circular ulcers present on right leg, present on admission # Possible Sacral Ulcer stage 2, present on admission - Wound culture: growing gram negative rods - Cefepime 1 g # Marijuana use DVT prophylaxis: SCD PUD prophylaxis: Pantoprazole 40 mg IV daily Lines -R femoral central line: 10/01/2025 -Salas catheter 09/27/2025 -ET tube: 10/01/2025 - Tunneled catheter in right pectoral region Patient has right femoral line given the presence of right tunnel catheter in right pectoral region and pacemaker in left field. Patient is pending head CT for evaluation of possible anoxic brain injury Drips during [facility] ventilation Fentanyl 50 Propofol: 25 Bicarbonate drip discontinued Levophed 2 mcg Critical care time 49 minutes excluding procedure. Code status discussed greater than 20 minutes: Full CODE STATUS. Sister, Claudia Burnett, was updated over the phone. Plan discussed with Dr Walter Plan discussed with: Other (Sister (Claudia), Nurse (Hoda)) My Orders My Orders Orders - RERE SEO RESIDENT Procedure Category Date Status Time Abg W/ Co-Ox RT 10/07/25 Logged 04:00 Chest Xray 1 View XY 10/07/25 Resulted 04:00 Dietary Evaluation Review Comments: Nutrition Recommendation: 1) CCHO 75gm + renal standard diet 2) Pro-stat 1 pk BID 3) Nephro-nellie 1 tab daily 4) Monitor PO intake, lab values, weight trend, and I/O Expected Outcomes/Goals: Wound to improve Intake to meet >75% estimated needs FU 3-5 days Visit Coding STANDARD RES Billing Provider: ANANT WALTER MD Date of Service if different f: Oct 07, 2025 Common Visit Codes: 07656-[id number] CARE 30-74 MIN RERE SEO RESIDENT Oct 07, 2025 10:40 ANANT WALTER MD Oct 08, 2025 12:02
[2025-10-07] MEDS: DEXMEDETOMIDINE HCL IN D5W 100 ML IV SCH (17:15)
[2025-10-07] MEDS ORDERED: HEPARIN 1,000 UNITS/ml 1ML VIAL IV ONE (17:45)
[2025-10-07] MEDS: HEPARIN 1,000 UNITS/ml 1ML VIAL IV ONE (18:20)
--- NOTE | 2025-10-07 18:43 | DVHPN2 ---
Progress Note - Dictate Date Seen: Oct 07, 2025 Medical Necessity Reason Pt with a Central, PICC or Fol: No The following are medically ne: Central Line, Salas Catheter Subjective Patient seen on dialysis earlier this evening. He had transient more significant hypotension requiring up titration of Levophed. vital signs Vital Sign Date Time Temp Pulse Resp B/P (MAP) Pulse Ox O2 Delivery O2 Flow Rate FiO2 10/07/25 17:40 86 20 149/68 (95) 99 40 10/07/25 16:00 Mechanical Ventilator+ 10/07/25 12:00 99.0 210.2 Total Intake and Output 10/06/25 10/06/25 10/07/25 15:00 23:00 07:00 Intake Total 595.94 ml 725.19 ml 608.76 ml Output Total 0 ml 5 ml 10 ml Balance 595.94 ml 720.19 ml 598.76 ml medications Current Medications Medications Dose Ordered Sig/Esteban Route Start Time Stop Time Status Last Admin Dose Admin Diagnostic Test (Pha) 1 strip ACHS 09/26/25 22:00 10/07/25 12:02 1 STRIP Insulin Human Regular ACHS SC 09/26/25 22:00 10/02/25 06:52 2 UNITS Dextrose 50 ml UD PRN IV 09/26/25 21:15 Sodium Chloride 10 ml Q8HR IV 09/26/25 22:00 10/07/25 14:58 10 ML Sevelamer HCl 800 mg TIDWM PO 09/29/25 18:00 10/06/25 17:48 800 MG Amino Acid Protein 30 ml BID PO 09/30/25 22:00 10/07/25 09:48 30 ML Multivit/Ca Carb/ B Cmplx/FA/Prenat 1 tab DAILY PO 09/30/25 11:12 10/07/25 09:46 1 TAB Ceftriaxone Sodium 50 ml @ 100 mls/hr DAILY@09 IV 10/02/25 09:00 10/07/25 09:45 100 MLS/HR Epinephrine HCl 250 ml @ 7.5 mls/hr Q24H IV 10/01/25 15:15 10/01/25 15:39 15 MLS/HR Norepinephrine Bitartrate 250 ml @ 3.75 mls/hr Q24H IV 10/01/25 15:15 10/06/25 09:44 3.75 MLS/HR Propofol 100 ml @ 3.936 mls/ hr Q24H IV 10/01/25 15:15 10/07/25 14:58 15.744 MLS/HR Fentanyl Citrate 250 ml @ 2.5 mls/hr Q24H IV 10/01/25 15:15 10/06/25 09:53 5 MLS/HR Albuterol 2.5 mg Q4HPRN PRN NEB 10/03/25 04:45 10/05/25 08:40 2.5 MG Ipratropium [place] 0.5 mg Q4HPRN PRN NEB 10/03/25 04:45 Albumin Human 100 ml @ 100 mls/hr ANABELLA PRN IV 10/03/25 09:45 10/07/25 17:42 100 MLS/HR Aspirin 81 mg DAILY NG 10/05/25 10:00 10/07/25 09:46 81 MG Enteral Nutritional Formula 1,000 ml 40ML/HR GT 10/04/25 18:30 10/06/25 21:26 1,000 ML Famotidine 10 mg HS IV 10/07/25 22:00 objective Gen: nad, intubated lungs: cta anteriorly cvs: no rub abd: soft, bowel sounds audible ext: + edema laboratory and microbiology Laboratory Tests 10/07/25 02:48 Test 10/07/25 02:48 Range/Units Serum Glucose 113 H 74-106 mg/dL Assessment/Plan End-stage renal disease on hemodialysis Acute respiratory failure, patient intubated on ventilator Status post cardiac arrest x3 Decompensated heart failure with ejection fraction less than 25% Diabetes with severe diabetic nephropathy Severe peripheral artery disease Anemia of chronic kidney disease Encephalomalacia Hyperphosphatemia Hyperparathyroidism, secondary Recommendations - ultrafiltration as hemodynamics permit, currently has demonstrated some instability with fluid removal, vasopressors increased - discussed with hemodialysis nurse at bedside. Dietary Evaluation Review Comments: Nutrition Recommendation: 1) CCHO 75gm + renal standard diet 2) Pro-stat 1 pk BID 3) Nephro-nellie 1 tab daily 4) Monitor PO intake, lab values, weight trend, and I/O Expected Outcomes/Goals: Wound to improve Intake to meet >75% estimated needs FU 3-5 days Plan discussed with: Other STEPHANIA SONG MD Oct 07, 2025 18:43
[2025-10-07] MEDS: FAMOTIDINE (10MG/ML) 2ML VL IV SCH (22:11)
--- NOTE | 2025-10-07 23:51 | DVHPN2 ---
Progress Note - Dictate Date Seen: Oct 07, 2025 Medical Necessity Reason Pt with a Central, PICC or Fol: No The following are medically ne: Central Line, Salas Catheter Subjective Patient was seen and evaluated in follow up in the ICU. Patient is intubated and sedated on ventilator. 40% FiO2. Patient desaturates when moved. HGB 8.4, HCT 26.2, BUN 56, NATURAL G[employer] TECHNICIAN 7.25, CA 8.4. CT head shows presence of chronic changes with no acute intracranial abnormalities. Chest x-ray showed cardiomegaly, right basilar bandlike atelectasis and small bilateral pleural effusions. vital signs Vital Sign Date Time Temp Pulse Resp B/P (MAP) Pulse Ox O2 Delivery O2 Flow Rate FiO2 10/07/25 11:29 116/39 10/07/25 09:45 18 96 Mechanical Ventilator+ 40 40 10/07/25 07:00 98.2 65 208.8 Total Intake and Output 10/06/25 10/06/25 10/07/25 15:00 23:00 07:00 Intake Total 595.94 ml 725.19 ml 603.76 ml Output Total 0 ml 5 ml 10 ml Balance 595.94 ml 720.19 ml 593.76 ml medications Current Medications Medications Dose Ordered Sig/Esteban Route Start Time Stop Time Status Last Admin Dose Admin Diagnostic Test (Pha) 1 strip ACHS 09/26/25 22:00 10/07/25 12:02 1 STRIP Insulin Human Regular ACHS SC 09/26/25 22:00 10/02/25 06:52 2 UNITS Dextrose 50 ml UD PRN IV 09/26/25 21:15 Sodium Chloride 10 ml Q8HR IV 09/26/25 22:00 10/07/25 06:00 10 ML Sevelamer HCl 800 mg TIDWM PO 09/29/25 18:00 10/06/25 17:48 800 MG Amino Acid Protein 30 ml BID PO 09/30/25 22:00 10/07/25 09:48 30 ML Multivit/Ca Carb/ B Cmplx/FA/Prenat 1 tab DAILY PO 09/30/25 11:12 10/07/25 09:46 1 TAB Ceftriaxone Sodium 50 ml @ 100 mls/hr DAILY@09 IV 10/02/25 09:00 10/07/25 09:45 100 MLS/HR Epinephrine HCl 250 ml @ 7.5 mls/hr Q24H IV 10/01/25 15:15 10/01/25 15:39 15 MLS/HR Norepinephrine Bitartrate 250 ml @ 3.75 mls/hr Q24H IV 10/01/25 15:15 10/06/25 09:44 3.75 MLS/HR Propofol 100 ml @ 3.936 mls/ hr Q24H IV 10/01/25 15:15 10/07/25 09:48 19.68 MLS/HR Fentanyl Citrate 250 ml @ 2.5 mls/hr Q24H IV 10/01/25 15:15 10/06/25 09:53 5 MLS/HR Albuterol 2.5 mg Q4HPRN PRN NEB 10/03/25 04:45 10/05/25 08:40 2.5 MG Ipratropium [place] 0.5 mg Q4HPRN PRN NEB 10/03/25 04:45 Albumin Human 100 ml @ 100 mls/hr ANABELLA PRN IV 10/03/25 09:45 10/05/25 14:15 100 MLS/HR Aspirin 81 mg DAILY NG 10/05/25 10:00 10/07/25 09:46 81 MG Enteral Nutritional Formula 1,000 ml 40ML/HR GT 10/04/25 18:30 10/06/25 21:26 1,000 ML Famotidine 10 mg HS IV 10/07/25 22:00 objective GENERAL: Ill appearing, intubated on ventilator. Morbidly obese. EYES: PERRL, EOMI. Anicteric. HENT: Moist mucous membranes. LUNGS: Decreased breath sounds. CARDIOVASCULAR: Regular rate and rhythm. ABDOMEN: Soft, non-tender and non-distended. EXTREMITIES: No edema. SKIN: Warm, dry. laboratory and microbiology Laboratory Tests 10/07/25 02:48 Test 10/07/25 02:48 Range/Units Serum Glucose 113 H 74-106 mg/dL Problem List Acute syncopal episode. Status post cardiac arrest x3. ESRD on hemodialysis. Hypertension. Peripheral neuropathy. Severe peripheral artery disease. Acute on chronic congestive heart failure exacerbation. History of CVA. Anemia of chronic disease. Diabetes with severe diabetic nephropathy. History of pacemaker. Morbidly obese. Decompensated heart failure with ejection fraction less than 25%. Encephalomalacia. Hyperphosphatemia. Hyperparathyroidism. Assessment/Plan Continued all current supportive medical care. Aspirin. IV antibiotics as ordered. Morphine and [place] for pain management. Vasopressors for hemodynamic support. Additional plan as per the hospital course. Critical care time of 45 minutes provided to include time spent evaluation of patient at bedside, when appropriate patient/family education for diagnosis, treatment plan, review of pertinent medical information and discussion of care with specialty providers and PCP. Mechanical ventilator parameters, treatment and adjustments have personally been reviewed by me and treatment plan by impact hammer operator has also been reviewed. Dietary Evaluation Review Comments: Nutrition Recommendation: 1) CCHO 75gm + renal standard diet 2) Pro-stat 1 pk BID 3) Nephro-nellie 1 tab daily 4) Monitor PO intake, lab values, weight trend, and I/O Expected Outcomes/Goals: Wound to improve Intake to meet >75% estimated needs FU 3-5 days Plan discussed with: Other MATTHEW CIFUENTES MD Oct 07, 2025 12:46
[2025-10-08] VITALS (107 sets, daily range): BP systolic 84–150; BP diastolic 33–81; PULSE 60–99; RESP 12–26; TEMP 97.3–99.5; O2SAT 93–100
[2025-10-08 04:34] LABS: Calcium 8.7 mg/dL (8.7-10.4); Chloride 99 mmol/L (98-107); Potassium 4.6 mmol/L (3.5-5.1); Sodium 139 mmol/L (136-145)
[2025-10-08 04:35] LABS: Anion Gap 11 (5-15); Carbon Dioxide 29 mmol/L (20-31)
[2025-10-08 04:36] LABS: Hemoglobin 7.8 g/dL (13.5-17.5); Mean Corpuscular Volume 97.4 fL (80.0-100.0); Nucleated Red Blood Cells % 0.2 %
[2025-10-08 04:38] LABS: Hematocrit 23.9 % (41.0-53.0); Mean Corpuscular Hemoglobin 31.7 pg (28.0-32.0)
[2025-10-08 04:40] LABS: Glucose 102 mg/dL (74-106)
[2025-10-08 04:41] LABS: BUN/Creatinine Ratio 8.3 (10.0-20.0); Magnesium 2.4 mg/dL (1.6-2.6)
[2025-10-08 04:47] LABS: Blood Urea Nitrogen 53 mg/dL (9-23)
[2025-10-08] MEDS: IPRATROPIUM BROM 0.5 MG/2.5ML INH SOL NEB PRN (06:20)
--- NOTE | 2025-10-08 06:28 | DVH ---
CHEST RADIOGRAPH INDICATION: Intubated TECHNIQUE: Single frontal view of the chest was obtained COMPARISON: XY CHEST XRAY 1 VIEW on DOS: 10/07/25. FINDINGS: Lines and Tubes: There is a right central venous catheter with its tip terminating in the right atrium. The enteric tube terminates in the stomach. AICD/pacemaker. Lungs: Bilateral interstitial prominence and airspace opacities are decreased. Pleura: No effusion. No pneumothorax. Cardiomediastinal contours: Cardiomegaly. Bones: No acute osseous abnormality. IMPRESSION: 1. Interval decrease in bilateral interstitial prominence and airspace opacities. 2. Cardiomegaly.
[2025-10-08 07:21] LABS: Base Excess -1.2 mmol/L (-2.0-3.0)
--- NOTE | 2025-10-08 09:44 | DVHPNRES ---
Progress Note Date Seen: Oct 08, 2025 Resident Creating Document: RERE SEO RESIDENT Medical Necessity Reason Pt with a Central, PICC or Fol: No The following are medically ne: Central Line, Salas Catheter Subjective Review of Systems Mr. Zamora is a 59 year old male with PMHx of ESRD with recent initiation of dialysis approximately 2 weeks ago , HFrEF with pacemaker placement, CVA in 2012, type 2 diabetes mellitus, gout, and hypertension, who presented to [facility] due to witnessed cardiopulmonary arrest during dialysis on 09/26/2025. At the time of evaluation the patient is sedated and intubated, majority of history is taken from previous medical record and his sister, Claudia Burnett. Per record, the patient became unresponsive during hemodialysis, CPR was intiated by bystanders and AED was used, by the time EMS arrived on scene the patient was found A&Ox4, GCS15, and moaning in pain. On evaluation in the ED, patient was complaining of dyspnea and chest wall pain. He was afebrile, normocardic with pacedc rhythm, hypertensive, and saturating adequately on room air. EKG showed paced rhythm with widened QTc. Initial labs are significant for normocytic anemia, hypokalemia, creatinine 6.85, BUN 43, and BNP 1232.11. Troponins were negative. UA without alteration. Chest xray significant for lungs with bilateral patchy airspace opacities, prominent pulmonary vasculature, with small bilateral pleural effusions. Head CT shows bilateral cerebral encephalomalacia and mild global cerebral volume loss without intracranial hemorrhage or mass effect. The patient was started on IV diuresis and admitted for further work up and managment. He was evaluated by cardiology who continued diuresis. The patient was evaluated by nephrology who state that given diminished cardiac function likely patient cannot tolerate large ultrafiltration goals. He was scheduled for further dialysis, having undergone dialysis on 09/28/2025 without issue. He was receiving dialysis on 10/01/2025 when he became bradycardic and went into asystole. Martine jarrell was called and CPR was intiated with ROSC achieved after 7 minutes of CPR. He was transferred to the ICU and he entered asystole two more times in a span of 15 minutes a with ROSC achieved after 11 minutes of CPR and at 2 minutes of CPR respectively. He was intubated and started on pressors, sedation, antibiotics, and bicarbonate drip. On initial evaluation in the ICU, the patient is intubated, sedated, and mechanically ventilated, on levophed 2 mcg, pupils are reactive, no response to painful stimulus, cough and gag are present. Labs are significant for normocytic anemia, worsening thrombocytopenia, and worsening renal function. ABG is significant for metabolic alkalosis. Most recent chest xray shows worsening congestion. Past medical history: ESRD on dialysis, HFrEF, CVA in 2013, Type 2 diabetes mellitus, and hypertension Past surgical history: Pacemaker placement and replacement, Right femoral fracture repair Allergies: Denies Social: Per sister, the patient currently smokes marijuana, denies other drug use. Patient currently lives with his mother and his brother. Home meds: Famotidine, Allopurinol, pregabalin, furosemide, sevelamer, metoprolol, and lokelma 10/08/2025: Patient seen in the ICU. He is intubated, sedated, and mechanically ventilated. Levophed has been discontinued, with BP remaining stable. Sedation is being scaled back as tolerated. He continues to desaturate when moved. During yesterday's dialysis, patient became unstable requiring increased dose of levophed. Labs show increase in WBCs, however still within normal range. Wound culture from sacral wound are growing gram negative rods, for which ceftriaxone will be discontinued and meropenem will be started. Today on evaluation, there is presence of gag reflex and some movement of his mouth. Still no response to painful stimulus. 10/07/2025: Patient seen in the ICU. He is intubated, sedated, and mechanically ventilated. Patient's blood pressure continues to be unstable, requiring continued pressor. He continues to desaturate when moved, requiring increasing oxygen supplementation. Labs are slightly improved. Patient continues to have sluggish pupils and no cough or gag reflex, Head CT shows presence of chornic changes with no acute intracranial abnormalities. We will continue to lower sedation to determine neurologic state. 10/06/2025: Patient seen in the ICU. He is intubated, sedated, and mechanically ventilated. Continues on levophed. Per nurse, it was reported overnight that patient continues to desaturate when moved. Labs are stable. Blood cultures are showing no growth at 72 hours. Patient is pending head CT for evaluation of possible anoxic injury. We will continue to follow. 10/05/2025: Patient seen in the ICU. He is intubated, sedated, and mechanically ventilated. Overnight levophed had to be resumed. Per nurse, he continues to present desaturations to the 70s when moved. Additionally the patient continues to reach peak pressures on the vent for which sedation was increased. Labs are stable. Lab was contacted today to confirm blood culture results as they did not appear on the EMR, per lab patient's blood cultures are not going any organisms at this time. Chest xray today shows interval improvement. The patient is scheduled for dialysis today. Due to lack of cough and gag and minimally reactive pupils in the context of a patient post cardiac arrest x3, there is concern of anoxic brain injury. Head CT has been ordered. 10/04/2025: Patient seen in the ICU. He is intubated, sedated, and mechanically ventilated. Currently off pressors. Per nurse, patient presented desaturations to the 50s when moved has elevated peak pressures on the ventilator. Labs are significant for and a decrease in hemoglobin, renal function is stable at this time, he will undergo dialysis tomorrow. Blood cultures are currently growing Gram-positive cocci in pairs, for which he is currently be covered with ceftriaxone. We will continue to monitor. 10/03/2025: Patient seen and examined at bedside, patient has completed hemodialysis this morning, decrease sedation today, patient was taken off levophed. Per nurse, the patient will desaturate to 50s when moved. He is afebrile, normocardic, with MAP within normal range. He underwent dialysis yesterday with removal of 3 L. Blood cultures are growing gram positive cocci in pairs/ chain and wound cultures are growing E. coli. Patient will remain on ceftriaxone . Objective vital signs Vital Sign Date Time Temp Pulse Resp B/P (MAP) Pulse Ox O2 Delivery O2 Flow Rate FiO2 10/08/25 07:00 98.6 73 15 131/70 (90) 98 209.5 10/08/25 06:20 40 10/08/25 06:00 Mechanical Ventilator+ Total Intake and Output 10/07/25 10/07/25 10/08/25 15:00 23:00 07:00 Intake Total 178.96 ml 981.1645 ml 408.208 ml Output Total 0 ml 2505 ml 30 ml Balance 178.96 ml -1523.8355 ml 378.208 ml medications Current Medications Medications Dose Ordered Sig/Esteban Route Start Time Stop Time Status Last Admin Dose Admin Diagnostic Test (Pha) 1 strip ACHS 09/26/25 22:00 10/08/25 06:28 1 STRIP Insulin Human Regular ACHS SC 09/26/25 22:00 10/07/25 22:00 3 UNITS Dextrose 50 ml UD PRN IV 09/26/25 21:15 Sodium Chloride 10 ml Q8HR IV 09/26/25 22:00 10/08/25 06:28 10 ML Sevelamer HCl 800 mg TIDWM PO 09/29/25 18:00 10/06/25 17:48 800 MG Amino Acid Protein 30 ml BID PO 09/30/25 22:00 10/07/25 22:12 30 ML Multivit/Ca Carb/ B Cmplx/FA/Prenat 1 tab DAILY PO 09/30/25 11:12 10/07/25 09:46 1 TAB Ceftriaxone Sodium 50 ml @ 100 mls/hr DAILY@09 IV 10/02/25 09:00 10/07/25 09:45 100 MLS/HR Epinephrine HCl 250 ml @ 7.5 mls/hr Q24H IV 10/01/25 15:15 10/01/25 15:39 15 MLS/HR Norepinephrine Bitartrate 250 ml @ 3.75 mls/hr Q24H IV 10/01/25 15:15 10/06/25 09:44 3.75 MLS/HR Propofol 100 ml @ 3.936 mls/ hr Q24H IV 10/01/25 15:15 10/08/25 06:29 11.808 MLS/HR Fentanyl Citrate 250 ml @ 2.5 mls/hr Q24H IV 10/01/25 15:15 10/06/25 09:53 5 MLS/HR Albuterol 2.5 mg Q4HPRN PRN NEB 10/03/25 04:45 10/08/25 06:20 2.5 MG Ipratropium [place] 0.5 mg Q4HPRN PRN NEB 10/03/25 04:45 10/08/25 06:20 0.5 MG Albumin Human 100 ml @ 100 mls/hr ANABELLA PRN IV 10/03/25 09:45 10/07/25 17:42 100 MLS/HR Aspirin 81 mg DAILY NG 10/05/25 10:00 10/07/25 09:46 81 MG Enteral Nutritional Formula 1,000 ml 40ML/HR GT 10/04/25 18:30 10/06/25 21:26 1,000 ML Famotidine 10 mg HS IV 10/07/25 22:00 10/07/25 22:11 10 MG Examination General: Patient is intubated, sedated, mechanically ventilated, non-reactive to painful stimulus HEENT: Normocephalic, atraumatic, 3 mm very sluggish, no EOM, right conjunctiva is edematous and red, pink moist mucous membrane, ET tube in place, orogastric tube in palce Respiratory/pulmonary: Bilateral chest expansion, decreased breath sounds bilaterally, wheezing in bilateral upper lobes Cardiovascular: Normal RRR Abdomen: Obese, Abdomen nondistended, normal bowel sounds, tense likely due to edema, no grimacing is observed on palpation, no palpable masses. Extremities: No deformities, bilateral lower extremity pedal edema 2+ in calves with scrotal swelling, large red circular ulcers present in right calf, presence of femoral CVC in right groin region, pulses are present, blisters present on left forearm Skin: Saccrococcyx 2.5x1.2x0.5cm, moist, open, full-thickness wound with moist red granulation tissue in the wound base and a mix of pale pink collagen scar tissue and dark brown adhered eschar material on the periwound area, there is minimal odor., darkened eschar lesions on his toes Neurological: subtle gag reflex is noted laboratory and microbiology Laboratory Tests 10/08/25 03:40 Test 10/08/25 03:40 Range/Units Serum Glucose 102 74-106 mg/dL Microbiology Date/Time Source Procedure Growth Status 10/06/25 13:00 Sacrum Gram Stain Pending Resulted 10/06/25 13:00 Sacrum Wound Culture - Preliminary Resulted 10/02/25 17:33 Blood Blood Culture - Final NO GROWTH AFTER 5 DAYS OF INCUBATION. Complete Problem List/Assessment/Plan Problem List/Assessment/Plan Assessment and Plan: Neurology # Sedated - Propofol 15 mcg/kg/hr - Fentanyl discontinued # Encephalomalacia - Head CT 09/26/2025: Bilateral cerebral encephalomalacia # Global cerebral volume loss - Head CT 09/26/2025: Mild global cerebral volume loss # epilepsy - Oxycarbazepine - hled # Concern for anoxic brain injury - Head CT 10/06/25: No acute intracranial hemorrhage or mass effect.Age indeterminate small infarct involving the right cerebellum, favored to be chronic. If there is clinical concern for acute infarct, recommend MRI for further evaluation.Chronic bilateral parietal and occipital lobe infarcts. #History of CVA in 2012 Cardiovascular #S/p Cardiac arrest with ROSC - 09/26/2025: Witnessed at dialysis center, bystanders started CPR and AED use, ROSC achieved before EMS arrived - 10/01/2025: Rhythm: Asystole, ROSC achieved after 7 minutes of CPR - 10/01/2025: Rhythm: Asystole, ROSC achieved after 11 minutes of CPR - 10/01/2025: Rhythm: Asystole, ROSC achieved after 2 minutes of CPR # Cardiogenic shock # Lactic acidosis likely due to above - Cultures are pending - Levophed 2 mcg - Epinephrine has been discontinued # Acute on chronic HFrEF - BNP 1232.11 - Echocardiogram 08/22/2025: LVEF of 20-25%, Severe LV dysfunction, moderate mitral regurgitation - Per cardiology: Diuretics with lasix, aspirin, nitroglycerin SL - Lasix 40 mg IV daily - S/p pacemaker placement # Bilateral pleural effusion - Chest xray 09/26/2025: The lungs demonstrate bilateral patchy airspace opacities. The pulmonary vasculature is prominent. Small bilateral pleural effusions. #Hypertension - Amlodipine held by nephrology Respiratory # Acute hypoxic respiratory failure # Ventilator -Intubated (10/01/2025) -[facility] vent : VCAC Mode RR 18 TV 500ml, PEEP Of 5 and FiO2 of 50% - 8.0 endotracheal tube, 24 at the lip - Cutlures from sputum: Normal orophargyngeal elpidio GI # Peptic ulcer prophylaxis -Pantoprazole 40 mg IV daily # Salas catheter draining clear urine Nephrology # ESRD on hemodialysis - Received dialysis without complication 09/29/2025 - S/p Cardiac arrest during dialysis 10/01/2025 - Per nephrology, the patient is scheduled for hemodialysis tomorrow - Strict Is and Os # Severe diabetic nephropathy #Acute metabolic alkalosis # Secondary hyperparathyroidism # Hypocalcemia - Monitor - Calcitrol # Hyperphosphatemia - Phosphate binders Infectious disease # Possible cellulitis secondary to lower extremity ulcers - Ceftriaxone - Wound culture: E. coli - Wound care is on board #Septic vs Cardiogenic shock - Cultures: Negative at 72 hours - Ceftriaxone 1 g IV daily, discontinue Hem/onc #Thrombocytopenia, improved - Monitor #Normocytic anemia, likely due to chronic disease - Monitor Hand H - Per nephrology: Epogen 99447 SQ 3 weekly as tolerated Endocrine #Type 2 diabetes mellitus - SSI -Accu cheks MSK # Gout - Allopurinol 300 mg PO daily Skin # Circular ulcers present on right leg, present on admission # Possible Sacral Ulcer stage 2, present on admission - Wound culture: growing gram negative rods - Meropenem 500 mg daily Marijuana use DVT prophylaxis: SCD PUD prophylaxis: Pantoprazole 40 mg IV daily Lines -R femoral central line: 10/01/2025 -Salas catheter 09/27/2025 -ET tube: 10/01/2025 - Tunneled catheter in right pectoral region Patient has right femoral line given the presence of right tunnel catheter in right pectoral region and pacemaker in left field. [facility] Fentanyl Discontinued Propofol: 15 Bicarbonate drip discontinued Levophed discontinued Critical care time 56 minutes excluding procedure. Code status discussed greater than 20 minutes: Full CODE STATUS. Sister, Claudia Burnett, was updated over the phone. Plan discussed with Dr Walter Plan discussed with: Other (Sister (Claudia), Nurse (Fatoumata)) My Orders My Orders Orders - RERE SEO RESIDENT Procedure Category Date Status Time Abg W/ Co-Ox RT 10/08/25 Logged 04:00 Chest Xray 1 View XY 10/08/25 Resulted 04:00 Dexmedetomidine Hcl PHA 10/07/25 In Process In D5w (Precedex) 17:15 Urinalysis LAB 10/08/25 Logged 08:14 Urine Bacterial ONESIMO 10/08/25 Logged Culture 08:14 Bacitracin-Polymyxin PHA 10/08/25 Logged B (Ophth) (Polyspor 14:00 Albuterol Medneb PHA 10/08/25 Logged (Ventolin Medneb) 12:00 Ipratropium Medneb PHA 10/08/25 Logged (Atrovent Medneb) 12:00 Dietary Evaluation Review Comments: Nutrition Recommendation: 1) CCHO 75gm + renal standard diet 2) Pro-stat 1 pk BID 3) Nephro-nellie 1 tab daily 4) Monitor PO intake, lab values, weight trend, and I/O Expected Outcomes/Goals: Wound to improve Intake to meet >75% estimated needs FU 3-5 days Visit Coding STANDARD RES Billing Provider: ANANT WALTER MD Date of Service if different f: Oct 08, 2025 Common Visit Codes: 49344-CEQLBTAR CARE 30-74 MIN RERE SEO RESIDENT Oct 08, 2025 09:44 ANANT WALTER MD Oct 10, 2025 11:47
[2025-10-08] MEDS: ALBUTEROL SULF 2.5 MG/0.5ML(0.5%) NEB SOLN NEB SCH (11:58)
[2025-10-08] MEDS: IPRATROPIUM BROM 0.5 MG/2.5ML INH SOL NEB SCH (11:58)
[2025-10-08] MEDS: ARTIFICIAL TEAR OPTH(EYE) OINT 3.5GM EACHEYE ONE (12:15)
[2025-10-08] MEDS: HEPARIN SODIUM (PORCINE) 5000 UNITS/ML 1ML VIAL ONE (13:39)
[2025-10-08] MEDS: MEROPENEM 500MG IVPB 50 ML IV ONE (13:49)
[2025-10-08] MEDS ORDERED: BACITRACIN-POLYMYXIN B OPTH(EYE) OINT 3.5GM OP SCH (14:00)
[2025-10-08] MEDS ORDERED: ARTIFICIAL TEARS 15ml EACHEYE PRN (14:30)
--- NOTE | 2025-10-08 15:14 | DVHPN2 ---
Progress Note - Dictate Date Seen: Oct 08, 2025 Medical Necessity Reason Pt with a Central, PICC or Fol: No The following are medically ne: Central Line, Salas Catheter Subjective Patient seen earlier this morning. Total UF approximately 2.5 L yesterday on dialysis. vital signs Vital Sign Date Time Temp Pulse Resp B/P (MAP) Pulse Ox O2 Delivery O2 Flow Rate FiO2 10/08/25 14:05 72 21 124/65 (84) 98 40 10/08/25 07:00 98.6 209.5 10/08/25 06:00 Mechanical Ventilator+ Total Intake and Output 10/07/25 10/07/25 10/08/25 14:59 22:59 06:59 Intake Total 180.21 ml 966.6705 ml 426.452 ml Output Total 0 ml 2505 ml 30 ml Balance 180.21 ml -1538.3295 ml 396.452 ml medications Current Medications Medications Dose Ordered Sig/Esteban Route Start Time Stop Time Status Last Admin Dose Admin Diagnostic Test (Pha) 1 strip ACHS 09/26/25 22:00 10/08/25 12:30 1 STRIP Insulin Human Regular ACHS SC 09/26/25 22:00 10/07/25 22:00 3 UNITS Dextrose 50 ml UD PRN IV 09/26/25 21:15 Sodium Chloride 10 ml Q8HR IV 09/26/25 22:00 10/08/25 06:28 10 ML Sevelamer HCl 800 mg TIDWM PO 09/29/25 18:00 10/06/25 17:48 800 MG Amino Acid Protein 30 ml BID PO 09/30/25 22:00 10/07/25 22:12 30 ML Multivit/Ca Carb/ B Cmplx/FA/Prenat 1 tab DAILY PO 09/30/25 11:12 10/08/25 10:59 1 TAB Epinephrine HCl 250 ml @ 7.5 mls/hr Q24H IV 10/01/25 15:15 10/01/25 15:39 15 MLS/HR Norepinephrine Bitartrate 250 ml @ 3.75 mls/hr Q24H IV 10/01/25 15:15 10/06/25 09:44 3.75 MLS/HR Propofol 100 ml @ 3.936 mls/ hr Q24H IV 10/01/25 15:15 10/08/25 06:29 11.808 MLS/HR Fentanyl Citrate 250 ml @ 2.5 mls/hr Q24H IV 10/01/25 15:15 10/06/25 09:53 5 MLS/HR Albumin Human 100 ml @ 100 mls/hr ANABELLA PRN IV 10/03/25 09:45 10/07/25 17:42 100 MLS/HR Aspirin 81 mg DAILY NG 10/05/25 10:00 10/08/25 10:59 81 MG Enteral Nutritional Formula 1,000 ml 40ML/HR GT 10/04/25 18:30 10/06/25 21:26 1,000 ML Famotidine 10 mg HS IV 10/07/25 22:00 10/07/25 22:11 10 MG Albuterol 2.5 mg Q6HR NEB 10/08/25 12:00 10/08/25 11:58 2.5 MG Ipratropium [place] 0.5 mg Q6HR NEB 10/08/25 12:00 10/08/25 11:58 0.5 MG Meropenem 50 ml @ 17 mls/hr DAILY IV 10/09/25 10:00 Artificial Tears 2 drop Q2HP PRN EACHEYE 10/08/25 14:30 objective Gen: nad, intubated lungs: cta anteriorly cvs: no rub abd: soft, bowel sounds audible ext: + edema laboratory and microbiology Laboratory Tests 10/08/25 03:40 Test 10/08/25 03:40 Range/Units Serum Glucose 102 74-106 mg/dL Assessment/Plan End-stage renal disease on hemodialysis Acute respiratory failure, patient intubated on ventilator Status post cardiac arrest x3 Decompensated heart failure with ejection fraction less than 25% Diabetes with severe diabetic nephropathy Severe peripheral artery disease Anemia of chronic kidney disease Encephalomalacia Hyperphosphatemia Hyperparathyroidism, secondary Recommendations - metabolic parameters acceptable - Mr. Zamora has demonstrated hemodynamic sensitivity two attempts at ultrafiltration during dialysis. We will continue to attempt dialysis therapy to optimize volume status. He is at high risk For complications related to hypotension during dialysis in any connected clinical sequelae. Dietary Evaluation Review Comments: Nutrition Recommendation: 1) CCHO 75gm + renal standard diet 2) Pro-stat 1 pk BID 3) Nephro-nellie 1 tab daily 4) Monitor PO intake, lab values, weight trend, and I/O Expected Outcomes/Goals: Wound to improve Intake to meet >75% estimated needs FU 3-5 days Plan discussed with: Other STEPHANIA SONG MD Oct 08, 2025 15:14
[2025-10-08] MEDS: PROPOFOL 100 ML IV ONE (15:44)
--- NOTE | 2025-10-08 20:51 | DVHPN2 ---
Progress Note - Dictate Date Seen: Oct 08, 2025 Medical Necessity Reason Pt with a Central, PICC or Fol: No The following are medically ne: Central Line, Salas Catheter Subjective Patient was seen and evaluated in follow up in the ICU. Patient is intubated and sedated on ventilator. 40% FiO2. Patient is showing no response to painful stimuli. Sedation is being scaled back as tolerated. Per nurse, the patient will desaturate to 50s when moved. Wound culture from sacral wound are growing gram negative rods. HGB 7.8, HCT 23.9, BUN 53, RECORD PRODUCER 6.41. Chest x-ray showed interval decrease in bilateral interstitial prominence and airspace opacities and cardiomegaly. vital signs Vital Sign Date Time Temp Pulse Resp B/P (MAP) Pulse Ox O2 Delivery O2 Flow Rate FiO2 10/08/25 09:33 74 23 111/52 (71) 97 40 10/08/25 07:00 98.6 209.5 10/08/25 06:00 Mechanical Ventilator+ Total Intake and Output 10/07/25 10/07/25 10/08/25 15:00 23:00 07:00 Intake Total 178.96 ml 981.1645 ml 408.208 ml Output Total 0 ml 2505 ml 30 ml Balance 178.96 ml -1523.8355 ml 378.208 ml medications Current Medications Medications Dose Ordered Sig/Esteban Route Start Time Stop Time Status Last Admin Dose Admin Diagnostic Test (Pha) 1 strip ACHS 09/26/25 22:00 10/08/25 06:28 1 STRIP Insulin Human Regular ACHS SC 09/26/25 22:00 10/07/25 22:00 3 UNITS Dextrose 50 ml UD PRN IV 09/26/25 21:15 Sodium Chloride 10 ml Q8HR IV 09/26/25 22:00 10/08/25 06:28 10 ML Sevelamer HCl 800 mg TIDWM PO 09/29/25 18:00 10/06/25 17:48 800 MG Amino Acid Protein 30 ml BID PO 09/30/25 22:00 10/07/25 22:12 30 ML Multivit/Ca Carb/ B Cmplx/FA/Prenat 1 tab DAILY PO 09/30/25 11:12 10/08/25 10:59 1 TAB Ceftriaxone Sodium 50 ml @ 100 mls/hr DAILY@09 IV 10/02/25 09:00 10/08/25 11:19 100 MLS/HR Epinephrine HCl 250 ml @ 7.5 mls/hr Q24H IV 10/01/25 15:15 10/01/25 15:39 15 MLS/HR Norepinephrine Bitartrate 250 ml @ 3.75 mls/hr Q24H IV 10/01/25 15:15 10/06/25 09:44 3.75 MLS/HR Propofol 100 ml @ 3.936 mls/ hr Q24H IV 10/01/25 15:15 10/08/25 06:29 11.808 MLS/HR Fentanyl Citrate 250 ml @ 2.5 mls/hr Q24H IV 10/01/25 15:15 10/06/25 09:53 5 MLS/HR Albumin Human 100 ml @ 100 mls/hr ANABELLA PRN IV 10/03/25 09:45 10/07/25 17:42 100 MLS/HR Aspirin 81 mg DAILY NG 10/05/25 10:00 10/08/25 10:59 81 MG Enteral Nutritional Formula 1,000 ml 40ML/HR GT 10/04/25 18:30 10/06/25 21:26 1,000 ML Famotidine 10 mg HS IV 10/07/25 22:00 10/07/25 22:11 10 MG Bacitracin/ Polymyxin B Sulfate 1 applic TID OP 10/08/25 14:00 Albuterol 2.5 mg Q6HR NEB 10/08/25 12:00 Ipratropium [place] 0.5 mg Q6HR NEB 10/08/25 12:00 objective GENERAL: Ill appearing, intubated on ventilator. Morbidly obese. EYES: PERRL, EOMI. Anicteric. HENT: Moist mucous membranes. LUNGS: Decreased breath sounds. CARDIOVASCULAR: Regular rate and rhythm. ABDOMEN: Soft, non-tender and non-distended. EXTREMITIES: No edema. SKIN: Warm, dry. laboratory and microbiology Laboratory Tests 10/08/25 03:40 Test 10/08/25 03:40 Range/Units Serum Glucose 102 74-106 mg/dL Problem List Acute syncopal episode. Status post cardiac arrest x3. ESRD on hemodialysis. Hypertension. Peripheral neuropathy. Severe peripheral artery disease. Acute on chronic congestive heart failure exacerbation. History of CVA. Anemia of chronic disease. Diabetes with severe diabetic nephropathy. History of pacemaker. Morbidly obese. Decompensated heart failure with ejection fraction less than 25%. Encephalomalacia. Hyperphosphatemia. Hyperparathyroidism. Assessment/Plan Continued all current supportive medical care. Aspirin. IV antibiotics as ordered. Morphine and Tappan for pain management. Vasopressors for hemodynamic support. Additional plan as per the hospital course. Critical care time of 45 minutes provided to include time spent evaluation of patient at bedside, when appropriate patient/family education for diagnosis, treatment plan, review of pertinent medical information and discussion of care with specialty providers and PCP. Mechanical ventilator parameters, treatment and adjustments have personally been reviewed by me and treatment plan by cloud security architect has also been reviewed. Dietary Evaluation Review Comments: Nutrition Recommendation: 1) CCHO 75gm + renal standard diet 2) Pro-stat 1 pk BID 3) Nephro-nellie 1 tab daily 4) Monitor PO intake, lab values, weight trend, and I/O Expected Outcomes/Goals: Wound to improve Intake to meet >75% estimated needs FU 3-5 days Plan discussed with: Other MATTHEW CIFUENTES MD Oct 08, 2025 11:59
[2025-10-08] MEDS: PROPOFOL 100 ML IV SCH (21:58)
[2025-10-08 22:38] LABS: Urine Amorphous Crystal FEW /hpf (None Seen); Urine Protein, UAD 2+ (Negative); Urine WBC Clumps PRESENT /hpf (None Seen)
[2025-10-09] VITALS (108 sets, daily range): BP systolic 95–162; BP diastolic 40–87; PULSE 60–96; RESP 12–32; TEMP 96.6–99.3; O2SAT 94–100
[2025-10-09 03:26] LABS: Chloride 99 mmol/L (98-107); Potassium 4.3 mmol/L (3.5-5.1); Sodium 138 mmol/L (136-145)
[2025-10-09 03:27] LABS: Anion Gap 11 (5-15); Carbon Dioxide 28 mmol/L (20-31)
[2025-10-09 03:28] LABS: Hemoglobin 7.6 g/dL (13.5-17.5); Nucleated Red Blood Cells % 0.2 %
[2025-10-09 03:30] LABS: Hematocrit 23.7 % (41.0-53.0); Mean Corpuscular Hemoglobin 31.6 pg (28.0-32.0); Mean Corpuscular Volume 97.9 fL (80.0-100.0)
[2025-10-09 03:32] LABS: BUN/Creatinine Ratio 9.0 (10.0-20.0); Glucose 95 mg/dL (74-106)
[2025-10-09 03:33] LABS: Magnesium 2.4 mg/dL (1.6-2.6)
[2025-10-09 03:36] LABS: Blood Urea Nitrogen 59 mg/dL (9-23); Calcium 8.6 mg/dL (8.7-10.4)
--- NOTE | 2025-10-09 06:01 | DVH ---
CHEST RADIOGRAPH Indication: Intubated Technique: Single frontal view of the chest was obtained COMPARISON: XY CHEST XRAY 1 VIEW on DOS: 10/08/25, XY CHEST XRAY 1 VIEW on DOS: 10/07/25, XY CHEST XRAY 1 VIEW on DOS: 10/06/25, XY CHEST XRAY 1 VIEW on DOS: 10/05/25, XY CHEST XRAY 1 VIEW on DOS: 10/04/25 FINDINGS: Lines and Tubes: Endotracheal tube is slightly high in position at the level of the thoracic inlet. Right central venous catheter and left chest pacemaker in satisfactory position. Lungs: Unchanged low lung volumes and patchy bilateral airspace disease. Pleura: No effusion.No pneumothorax. Cardiomediastinal contours: Unremarkable Bones: Unremarkable IMPRESSION: Endotracheal tube is slightly high in position at the level of the thoracic inlet. Recommend advancement by 2 cm.
[2025-10-09 06:42] LABS: Base Excess 1.5 mmol/L (-2.0-3.0)
--- NOTE | 2025-10-09 08:10 | DVH ---
EXAM: XY CHEST PORTABLE HISTORY: ETT ADVANCEMENT TECHNIQUE: 1 view of the chest COMPARISON: XY CHEST XRAY 1 VIEW on DOS: 10/09/25 FINDINGS/IMPRESSION: LUNGS: Low lung volumes, which cause crowding of the bronchovascular markings. Atelectasis at in the right lung base. MEDIASTINUM: Normal cardiac size. Left anterior chest cardiac device. BONES: No acute osseous abnormality. OTHER: Right internal jugular central venous catheter. Endotracheal tube 5.3 cm above the tiburcio.
[2025-10-09] MEDS: MEROPENEM 500MG IVPB 50 ML IV SCH (09:50)
--- NOTE | 2025-10-09 11:42 | DVHPNRES ---
Progress Note Date Seen: Oct 09, 2025 Medical Necessity Reason Pt with a Central, PICC or Fol: No The following are medically ne: Central Line, Salas Catheter Subjective Review of Systems Mr. Zamora is a 59 year old male with PMHx of ESRD with recent initiation of dialysis approximately 2 weeks ago , HFrEF with pacemaker placement, CVA in 2012, type 2 diabetes mellitus, gout, and hypertension, who presented to [facility] due to witnessed cardiopulmonary arrest during dialysis on 09/26/2025. At the time of evaluation the patient is sedated and intubated, majority of history is taken from previous medical record and his sister, Claudia Burnett. Per record, the patient became unresponsive during hemodialysis, CPR was intiated by bystanders and AED was used, by the time EMS arrived on scene the patient was found A&Ox4, GCS15, and moaning in pain. On evaluation in the ED, patient was complaining of dyspnea and chest wall pain. He was afebrile, normocardic with pacedc rhythm, hypertensive, and saturating adequately on room air. EKG showed paced rhythm with widened QTc. Initial labs are significant for normocytic anemia, hypokalemia, creatinine 6.85, BUN 43, and BNP 1232.11. Troponins were negative. UA without alteration. Chest xray significant for lungs with bilateral patchy airspace opacities, prominent pulmonary vasculature, with small bilateral pleural effusions. Head CT shows bilateral cerebral encephalomalacia and mild global cerebral volume loss without intracranial hemorrhage or mass effect. The patient was started on IV diuresis and admitted for further work up and managment. He was evaluated by cardiology who continued diuresis. The patient was evaluated by nephrology who state that given diminished cardiac function likely patient cannot tolerate large ultrafiltration goals. He was scheduled for further dialysis, having undergone dialysis on 09/28/2025 without issue. He was receiving dialysis on 10/01/2025 when he became bradycardic and went into asystole. Martine jarrell was called and CPR was intiated with ROSC achieved after 7 minutes of CPR. He was transferred to the ICU and he entered asystole two more times in a span of 15 minutes a with ROSC achieved after 11 minutes of CPR and at 2 minutes of CPR respectively. He was intubated and started on pressors, sedation, antibiotics, and bicarbonate drip. On initial evaluation in the ICU, the patient is intubated, sedated, and mechanically ventilated, on levophed 2 mcg, pupils are reactive, no response to painful stimulus, cough and gag are present. Labs are significant for normocytic anemia, worsening thrombocytopenia, and worsening renal function. ABG is significant for metabolic alkalosis. Most recent chest xray shows worsening congestion. Past medical history: ESRD on dialysis, HFrEF, CVA in 2013, Type 2 diabetes mellitus, and hypertension Past surgical history: Pacemaker placement and replacement, Right femoral fracture repair Allergies: Denies Social: Per sister, the patient currently smokes marijuana, denies other drug use. Patient currently lives with his mother and his brother. Home meds: Famotidine, Allopurinol, pregabalin, furosemide, sevelamer, metoprolol, and lokelma 10/09/2025: Patient seen in the ICU. He is intubated and mechanically ventilated. Pressors and have been discontinued. He is afebrile, normocardic, with stable BP. Labs are stable. Follow up UA shows signs of UTI. Patient shows signs of blinking and cough and gag, however no tracking, withdrawal to pain or other meaningful movements noted. 10/08/2025: Patient seen in the ICU. He is intubated, sedated, and mechanically ventilated. Levophed has been discontinued, with BP remaining stable. Sedation is being scaled back as tolerated. He continues to desaturate when moved. During yesterday's dialysis, patient became unstable requiring increased dose of levophed. Labs show increase in WBCs, however still within normal range. Wound culture from sacral wound are growing gram negative rods, for which ceftriaxone will be discontinued and meropenem will be started. Today on evaluation, there is presence of gag reflex and some movement of his mouth. Still no response to painful stimulus. 10/07/2025: Patient seen in the ICU. He is intubated, sedated, and mechanically ventilated. Patient's blood pressure continues to be unstable, requiring continued pressor. He continues to desaturate when moved, requiring increasing oxygen supplementation. Labs are slightly improved. Patient continues to have sluggish pupils and no cough or gag reflex, Head CT shows presence of chornic changes with no acute intracranial abnormalities. We will continue to lower sedation to determine neurologic state. 10/06/2025: Patient seen in the ICU. He is intubated, sedated, and mechanically ventilated. Continues on levophed. Per nurse, it was reported overnight that patient continues to desaturate when moved. Labs are stable. Blood cultures are showing no growth at 72 hours. Patient is pending head CT for evaluation of possible anoxic injury. We will continue to follow. 10/05/2025: Patient seen in the ICU. He is intubated, sedated, and mechanically ventilated. Overnight levophed had to be resumed. Per nurse, he continues to present desaturations to the 70s when moved. Additionally the patient continues to reach peak pressures on the vent for which sedation was increased. Labs are stable. Lab was contacted today to confirm blood culture results as they did not appear on the EMR, per lab patient's blood cultures are not going any organisms at this time. Chest xray today shows interval improvement. The patient is scheduled for dialysis today. Due to lack of cough and gag and minimally reactive pupils in the context of a patient post cardiac arrest x3, there is concern of anoxic brain injury. Head CT has been ordered. 10/04/2025: Patient seen in the ICU. He is intubated, sedated, and mechanically ventilated. Currently off pressors. Per nurse, patient presented desaturations to the 50s when moved has elevated peak pressures on the ventilator. Labs are significant for and a decrease in hemoglobin, renal function is stable at this time, he will undergo dialysis tomorrow. Blood cultures are currently growing Gram-positive cocci in pairs, for which he is currently be covered with ceftriaxone. We will continue to monitor. 10/03/2025: Patient seen and examined at bedside, patient has completed hemodialysis this morning, decrease sedation today, patient was taken off levophed. Per nurse, the patient will desaturate to 50s when moved. He is afebrile, normocardic, with MAP within normal range. He underwent dialysis yesterday with removal of 3 L. Blood cultures are growing gram positive cocci in pairs/ chain and wound cultures are growing E. coli. Patient will remain on ceftriaxone . Objective vital signs Vital Sign Date Time Temp Pulse Resp B/P (MAP) Pulse Ox O2 Delivery O2 Flow Rate FiO2 10/09/25 09:00 99.1 78 17 116/51 (72) 96 210.4 10/09/25 08:11 30 10/09/25 08:00 Mechanical Ventilator+ Total Intake and Output 12/11/25 12/11/25 12/12/25 15:00 23:00 07:00 Intake Total 194.408 ml 148.62 ml 339.66 ml Output Total 25 ml 15 ml Balance 194.408 ml 123.62 ml 324.66 ml medications Current Medications Medications Dose Ordered Sig/Esteban Route Start Time Stop Time Status Last Admin Dose Admin Diagnostic Test (Pha) 1 strip ACHS 09/26/25 22:00 10/09/25 06:27 1 STRIP Insulin Human Regular ACHS SC 09/26/25 22:00 10/09/25 06:27 2 UNITS Dextrose 50 ml UD PRN IV 09/26/25 21:15 Sodium Chloride 10 ml Q8HR IV 09/26/25 22:00 10/09/25 06:08 10 ML Sevelamer HCl 800 mg TIDWM PO 09/29/25 18:00 10/09/25 07:57 800 MG Amino Acid Protein 30 ml BID PO 09/30/25 22:00 10/09/25 09:50 30 ML Multivit/Ca Carb/ B Cmplx/FA/Prenat 1 tab DAILY PO 09/30/25 11:12 10/09/25 09:50 1 TAB Epinephrine HCl 250 ml @ 7.5 mls/hr Q24H IV 10/01/25 15:15 10/01/25 15:39 15 MLS/HR Norepinephrine Bitartrate 250 ml @ 3.75 mls/hr Q24H IV 10/01/25 15:15 10/06/25 09:44 3.75 MLS/HR Fentanyl Citrate 250 ml @ 2.5 mls/hr Q24H IV 10/01/25 15:15 10/06/25 09:53 5 MLS/HR Albumin Human 100 ml @ 100 mls/hr ANABELLA PRN IV 10/03/25 09:45 10/07/25 17:42 100 MLS/HR Aspirin 81 mg DAILY NG 10/05/25 10:00 10/09/25 09:50 81 MG Enteral Nutritional Formula 1,000 ml 40ML/HR GT 10/04/25 18:30 10/06/25 21:26 1,000 ML Famotidine 10 mg HS IV 10/07/25 22:00 10/08/25 21:59 10 MG Albuterol 2.5 mg Q6HR NEB 10/08/25 12:00 10/09/25 05:36 2.5 MG Ipratropium [place] 0.5 mg Q6HR NEB 10/08/25 12:00 10/09/25 05:36 0.5 MG Meropenem 50 ml @ 17 mls/hr DAILY IV 10/09/25 10:00 10/09/25 09:50 17 MLS/HR Artificial Tears 2 drop Q2HP PRN EACHEYE 10/08/25 14:30 Propofol 100 ml @ 3.966 mls/ hr Q24H IV 10/08/25 19:00 10/08/25 21:58 7.932 MLS/HR Examination General: Patient is intubated, mechanically ventilated, non-reactive to painful stimulus HEENT: Normocephalic, atraumatic, 3 mm very sluggish, no EOM, right conjunctiva is edematous and red, pink moist mucous membrane, ET tube in place, orogastric tube in palce Respiratory/pulmonary: Bilateral chest expansion, decreased breath sounds bilaterally, wheezing in bilateral upper lobes Cardiovascular: Normal RRR Abdomen: Obese, Abdomen nondistended, normal bowel sounds, tense likely due to edema, no grimacing is observed on palpation, no palpable masses. Extremities: No deformities, bilateral lower extremity pedal edema 2+ in calves with scrotal swelling, large red circular ulcers present in right calf, presence of femoral CVC in right groin region, pulses are present, blisters present on left forearm Skin: Saccrococcyx 2.5x1.2x0.5cm, moist, open, full-thickness wound with moist red granulation tissue in the wound base and a mix of pale pink collagen scar tissue and dark brown adhered eschar material on the periwound area, there is minimal odor., darkened eschar lesions on his toes Neurological: Gag and cough noted, patient blinks but does not track movements with his eyes, does not respond to verbal commands, no response to painful stimulus laboratory and microbiology Laboratory Tests 10/09/25 02:30 Test 10/09/25 02:30 Range/Units Serum Glucose 95 74-106 mg/dL Microbiology Date/Time Source Procedure Growth Status 10/08/25 22:28 Urine - Sal[place] Urine Culture - Preliminary Resulted 10/06/25 13:00 Sacrum Gram Stain - Final Resulted 10/06/25 13:00 Sacrum Wound Culture - Preliminary Resulted 10/02/25 17:33 Blood Blood Culture - Final NO GROWTH AFTER 5 DAYS OF INCUBATION. Complete Problem List/Assessment/Plan Problem List/Assessment/Plan Assessment and Plan: Neurology # Sedated - Propofol 15 mcg/kg/hr - Fentanyl discontinued # Encephalomalacia - Head CT 09/26/2025: Bilateral cerebral encephalomalacia # Global cerebral volume loss - Head CT 09/26/2025: Mild global cerebral volume loss # epilepsy - Oxycarbazepine - held # Concern for anoxic brain injury - Head CT 10/06/25: No acute intracranial hemorrhage or mass effect.Age indeterminate small infarct involving the right cerebellum, favored to be chronic. If there is clinical concern for acute infarct, recommend MRI for further evaluation.Chronic bilateral parietal and occipital lobe infarcts. #History of CVA in 2012 Cardiovascular #S/p Cardiac arrest with ROSC - 09/26/2025: Witnessed at dialysis center, bystanders started CPR and AED use, ROSC achieved before EMS arrived - 10/01/2025: Rhythm: Asystole, ROSC achieved after 7 minutes of CPR - 10/01/2025: Rhythm: Asystole, ROSC achieved after 11 minutes of CPR - 10/01/2025: Rhythm: Asystole, ROSC achieved after 2 minutes of CPR # Cardiogenic shock # Lactic acidosis likely due to above - Cultures are pending - Levophed 2 mcg - Epinephrine has been discontinued # Acute on chronic HFrEF - BNP 1232.11 - Echocardiogram 08/22/2025: LVEF of 20-25%, Severe LV dysfunction, moderate mitral regurgitation - Per cardiology: Diuretics with lasix, aspirin, nitroglycerin SL - Lasix 40 mg IV daily - S/p pacemaker placement # Bilateral pleural effusion - Chest xray 09/26/2025: The lungs demonstrate bilateral patchy airspace opacities. The pulmonary vasculature is prominent. Small bilateral pleural effusions. #Hypertension - Amlodipine held by nephrology Respiratory # Acute hypoxic respiratory failure # Ventilator -Intubated (10/01/2025) -On [facility] vent : VCAC Mode RR 18 TV 450ml, PEEP Of 5 and FiO2 of 30% - 8.0 endotracheal tube, 24 at the lip - Cutlures from sputum: Normal orophargyngeal elpidio GI # Peptic ulcer prophylaxis -Pantoprazole 40 mg IV daily # Salas catheter draining clear urine Nephrology # ESRD on hemodialysis - Received dialysis without complication 09/29/2025 - S/p Cardiac arrest during dialysis 10/01/2025 - Per nephrology, the patient is scheduled for hemodialysis tomorrow - Strict Is and Os # Severe diabetic nephropathy #Acute metabolic alkalosis # Secondary hyperparathyroidism # Hypocalcemia - Monitor - Calcitrol # Hyperphosphatemia - Phosphate binders Infectious disease # Possible cellulitis secondary to lower extremity ulcers - Ceftriaxone - Wound culture: E. coli - Wound care is on board #Septic vs Cardiogenic shock - Cultures: Negative at 72 hours - Ceftriaxone 1 g IV daily, discontinue Hem/onc #Thrombocytopenia, improved - Monitor #Normocytic anemia, likely due to chronic disease - Monitor Hand H - Per nephrology: Epogen 52351 SQ 3 weekly as tolerated Endocrine #Type 2 diabetes mellitus - SSI -Accu cheks MSK # Gout - Allopurinol 300 mg PO daily Skin # Circular ulcers present on right leg, present on admission # Possible Sacral Ulcer stage 2, present on admission - Wound culture: growing gram negative rods - Meropenem 500 mg daily Marijuana use DVT prophylaxis: SCD PUD prophylaxis: Pantoprazole 40 mg IV daily Lines -R femoral central line: 10/01/2025 -Salas catheter 09/27/2025 -ET tube: 10/01/2025 - Tunneled catheter in right pectoral region Patient has right femoral line given the presence of right tunnel catheter in right pectoral region and pacemaker in left field. We will give the patient more time for sedation to wear off for accurate neurological evaluation. Drips during [facility] ventilation Fentanyl Discontinued Propofol: 15 Bicarbonate drip discontinued Levophed discontinued Critical care time 59 minutes excluding procedure. Code status discussed greater than 20 minutes: Full CODE STATUS. Sister, Claudia Burnett, was updated over the phone. Plan discussed with Dr Rivera Plan discussed with: Other (Sister (Claudia), Nurse (Prem)) My Orders My Orders Orders - [employer] Procedure Category Date Status Time Meropenem 500mg Ivpb PHA 10/09/25 In Process (Merrem 500mg/50ml 10:00 Artificial Tear 15ml PHA 10/08/25 In Process Opthalmic (Tears Na 14:30 Abg W/ Co-Ox RT 10/09/25 Logged 04:00 Chest Xray 1 View XY 10/09/25 Resulted 04:00 Chest Portable XY 10/09/25 Resulted 06:30 Respiratory Misc. RT 10/09/25 Transmitted Order 06:30 Dietary Evaluation Review Comments: Nutrition Recommendation: 1) CCHO 75gm + renal standard diet 2) Pro-stat 1 pk BID 3) Nephro-nellie 1 tab daily 4) Monitor PO intake, lab values, weight trend, and I/O Expected Outcomes/Goals: Wound to improve Intake to meet >75% estimated needs FU 3-5 days Visit Coding STANDARD RES Billing Provider: JEREMIAH RIVERA MD Date of Service if different f: Oct 09, 2025 Common Visit Codes: [id number] CARE 30-74 MIN [employer] [employer] RESIDENT Oct 09, 2025 11:42
[2025-10-09] MEDS: CATHFLO ACTIVASE (ALTEPLASE) 2 MG VIAL IV ONE (13:45)
--- NOTE | 2025-10-09 18:06 | DVHPN2 ---
Progress Note - Dictate Date Seen: Oct 09, 2025 Medical Necessity Reason Pt with a Central, PICC or Fol: No The following are medically ne: Central Line, Salas Catheter Subjective Patient seen earlier this afternoon, unable to perform dialysis due to dysfunctional port on dialysis catheter. Cathflo was instilled. Patient's sister and patient's brother were at the bedside during my evaluation.. vital signs Vital Sign Date Time Temp Pulse Resp B/P (MAP) Pulse Ox O2 Delivery O2 Flow Rate FiO2 10/09/25 17:45 91 19 145/77 (99) 98 10/09/25 17:15 99.0 210.2 10/09/25 16:00 30 10/09/25 16:00 Mechanical Ventilator+ Total Intake and Output 10/08/25 10/08/25 10/09/25 15:00 23:00 07:00 Intake Total 194.408 ml 148.62 ml 339.66 ml Output Total 25 ml 15 ml Balance 194.408 ml 123.62 ml 324.66 ml medications Current Medications Medications Dose Ordered Sig/Esteban Route Start Time Stop Time Status Last Admin Dose Admin Diagnostic Test (Pha) 1 strip ACHS 09/26/25 22:00 10/09/25 11:57 1 STRIP Insulin Human Regular ACHS SC 09/26/25 22:00 10/09/25 11:30 2 UNITS Dextrose 50 ml UD PRN IV 09/26/25 21:15 Sodium Chloride 10 ml Q8HR IV 09/26/25 22:00 10/09/25 14:27 10 ML Sevelamer HCl 800 mg TIDWM PO 09/29/25 18:00 10/09/25 13:36 800 MG Amino Acid Protein 30 ml BID PO 09/30/25 22:00 10/09/25 09:50 30 ML Multivit/Ca Carb/ B Cmplx/FA/Prenat 1 tab DAILY PO 09/30/25 11:12 10/09/25 09:50 1 TAB Epinephrine HCl 250 ml @ 7.5 mls/hr Q24H IV 10/01/25 15:15 10/01/25 15:39 15 MLS/HR Norepinephrine Bitartrate 250 ml @ 3.75 mls/hr Q24H IV 10/01/25 15:15 10/06/25 09:44 3.75 MLS/HR Fentanyl Citrate 250 ml @ 2.5 mls/hr Q24H IV 10/01/25 15:15 10/06/25 09:53 5 MLS/HR Albumin Human 100 ml @ 100 mls/hr ANABELLA PRN IV 10/03/25 09:45 10/07/25 17:42 100 MLS/HR Aspirin 81 mg DAILY NG 10/05/25 10:00 10/09/25 09:50 81 MG Enteral Nutritional Formula 1,000 ml 40ML/HR GT 10/04/25 18:30 10/06/25 21:26 1,000 ML Famotidine 10 mg HS IV 10/07/25 22:00 10/08/25 21:59 10 MG Albuterol 2.5 mg Q6HR NEB 10/08/25 12:00 10/09/25 13:38 2.5 MG Ipratropium [place] 0.5 mg Q6HR NEB 10/08/25 12:00 10/09/25 13:38 0.5 MG Meropenem 50 ml @ 17 mls/hr DAILY IV 10/09/25 10:00 10/09/25 09:50 17 MLS/HR Artificial Tears 2 drop Q2HP PRN EACHEYE 10/08/25 14:30 Propofol 100 ml @ 3.966 mls/ hr Q24H IV 10/08/25 19:00 10/08/25 21:58 7.932 MLS/HR objective Gen: nad, intubated lungs: cta anteriorly cvs: no rub abd: soft, bowel sounds audible ext: + edema laboratory and microbiology Laboratory Tests 10/09/25 02:30 Test 10/09/25 02:30 Range/Units Serum Glucose 95 74-106 mg/dL Assessment/Plan End-stage renal disease on hemodialysis Acute respiratory failure, patient intubated on ventilator Status post cardiac arrest x3 Decompensated heart failure with ejection fraction less than 25% Diabetes with severe diabetic nephropathy Severe peripheral artery disease Anemia of chronic kidney disease Encephalomalacia Hyperphosphatemia Hyperparathyroidism, secondary Recommendations - we will re-attempt dialysis on October 10 - discussed current clinical state and goals of therapy with patient's family at bedside - we will continue with full measures Dietary Evaluation Review Comments: Nutrition Recommendation: 1) CCHO 75gm + renal standard diet 2) Pro-stat 1 pk BID 3) Nephro-nellie 1 tab daily 4) Monitor PO intake, lab values, weight trend, and I/O Expected Outcomes/Goals: Wound to improve Intake to meet >75% estimated needs FU 3-5 days Plan discussed with: STEPHANIA Sanchez MD Oct 09, 2025 18:06
[2025-10-09] MEDS ORDERED: ARTIFICIAL TEAR OPTH(EYE) OINT 3.5GM EACHEYE SCH (22:00)
--- NOTE | 2025-10-09 23:16 | DVHPN2 ---
Progress Note - Dictate Date Seen: Oct 09, 2025 Medical Necessity Reason Pt with a Central, PICC or Fol: No The following are medically ne: Central Line, Salas Catheter Subjective Patient was seen and evaluated in follow up in the ICU. Patient is intubated and sedated on ventilator. 30% FiO2. HGB 7.6, HCT 23.7, BUN 59, SUPPLIER RELATIONSHIP DIRECTOR 6.54, CA 8.6. Chest x-ray shows atelectasis at in the right lung base. vital signs Vital Sign Date Time Temp Pulse Resp B/P (MAP) Pulse Ox O2 Delivery O2 Flow Rate FiO2 10/09/25 12:30 99.0 75 18 113/63 (80) 96 210.2 10/09/25 12:08 30 10/09/25 12:00 Mechanical Ventilator+ Total Intake and Output 10/08/25 10/08/25 10/09/25 15:00 23:00 07:00 Intake Total 194.408 ml 148.62 ml 339.66 ml Output Total 25 ml 15 ml Balance 194.408 ml 123.62 ml 324.66 ml medications Current Medications Medications Dose Ordered Sig/Esteban Route Start Time Stop Time Status Last Admin Dose Admin Diagnostic Test (Pha) 1 strip ACHS 09/26/25 22:00 10/09/25 11:57 1 STRIP Insulin Human Regular ACHS SC 09/26/25 22:00 10/09/25 11:30 2 UNITS Dextrose 50 ml UD PRN IV 09/26/25 21:15 Sodium Chloride 10 ml Q8HR IV 09/26/25 22:00 10/09/25 06:08 10 ML Sevelamer HCl 800 mg TIDWM PO 09/29/25 18:00 10/09/25 07:57 800 MG Amino Acid Protein 30 ml BID PO 09/30/25 22:00 10/09/25 09:50 30 ML Multivit/Ca Carb/ B Cmplx/FA/Prenat 1 tab DAILY PO 09/30/25 11:12 10/09/25 09:50 1 TAB Epinephrine HCl 250 ml @ 7.5 mls/hr Q24H IV 10/01/25 15:15 10/01/25 15:39 15 MLS/HR Norepinephrine Bitartrate 250 ml @ 3.75 mls/hr Q24H IV 10/01/25 15:15 10/06/25 09:44 3.75 MLS/HR Fentanyl Citrate 250 ml @ 2.5 mls/hr Q24H IV 10/01/25 15:15 10/06/25 09:53 5 MLS/HR Albumin Human 100 ml @ 100 mls/hr ANABELLA PRN IV 10/03/25 09:45 10/07/25 17:42 100 MLS/HR Aspirin 81 mg DAILY NG 10/05/25 10:00 10/09/25 09:50 81 MG Enteral Nutritional Formula 1,000 ml 40ML/HR GT 10/04/25 18:30 10/06/25 21:26 1,000 ML Famotidine 10 mg HS IV 10/07/25 22:00 10/08/25 21:59 10 MG Albuterol 2.5 mg Q6HR NEB 10/08/25 12:00 10/09/25 05:36 2.5 MG Ipratropium [place] 0.5 mg Q6HR NEB 10/08/25 12:00 10/09/25 05:36 0.5 MG Meropenem 50 ml @ 17 mls/hr DAILY IV 10/09/25 10:00 10/09/25 09:50 17 MLS/HR Artificial Tears 2 drop Q2HP PRN EACHEYE 10/08/25 14:30 Propofol 100 ml @ 3.966 mls/ hr Q24H IV 10/08/25 19:00 10/08/25 21:58 7.932 MLS/HR objective GENERAL: Ill appearing, intubated on ventilator. Morbidly obese. EYES: PERRL, EOMI. Anicteric. HENT: Moist mucous membranes. LUNGS: Decreased breath sounds. CARDIOVASCULAR: Regular rate and rhythm. ABDOMEN: Soft, non-tender and non-distended. EXTREMITIES: No edema. SKIN: Warm, dry. laboratory and microbiology Laboratory Tests 10/09/25 02:30 Test 10/09/25 02:30 Range/Units Serum Glucose 95 74-106 mg/dL Problem List Acute syncopal episode. Status post cardiac arrest x3. ESRD on hemodialysis. Hypertension. Peripheral neuropathy. Severe peripheral artery disease. Acute on chronic congestive heart failure exacerbation. History of CVA. Anemia of chronic disease. Diabetes with severe diabetic nephropathy. History of pacemaker. Morbidly obese. Decompensated heart failure with ejection fraction less than 25%. Encephalomalacia. Hyperphosphatemia. Hyperparathyroidism. Assessment/Plan Continued all current supportive medical care. Aspirin. IV antibiotics as ordered. Morphine and [place] for pain management. Vasopressors for hemodynamic support. Additional plan as per the hospital course. Critical care time of 45 minutes provided to include time spent evaluation of patient at bedside, when appropriate patient/family education for diagnosis, treatment plan, review of pertinent medical information and discussion of care with specialty providers and PCP. Mechanical ventilator parameters, treatment and adjustments have personally been reviewed by me and treatment plan by junior accounting clerk has also been reviewed. Dietary Evaluation Review Comments: Nutrition Recommendation: 1) CCHO 75gm + renal standard diet 2) Pro-stat 1 pk BID 3) Nephro-nellie 1 tab daily 4) Monitor PO intake, lab values, weight trend, and I/O Expected Outcomes/Goals: Wound to improve Intake to meet >75% estimated needs FU 3-5 days Plan discussed with: Other MATTHEW CIFUENTES MD Oct 09, 2025 12:53
--- NOTE | 2025-10-09 23:52 | DVHPN2 ---
[facility] DOS: 10/09/2025 Patient seen and examined at bedside. Sedated, intubated on mechanical ventilator. Overnight events reviewed. Reviewed: Care Plan, H&P, Labs, Medications, Previous Orders, Radiology Changes from previous H/P or p: No Changes Eyes: No Pain, No Vision change, No Conjunctivae inflammation, No Eyelid inflammation, No Other, No Redness ENT: No Ear pain, No Ear discharge, No Nose pain, No Nose discharge, No Nose congestion, No Mouth pain, No Mouth swelling, No Throat pain, No Throat swelling, No Other Cardiovascular: Chest Pain; No Palpitations, No Orthopnea, No Paroxysmal Noc. Dyspnea, No Edema, No Lt Headedness, No Other Respiratory: No Cough, No Dry, No Shortness of breath, No SOB with excertion, No Wheezing, No Hemoptysis, No Pleuritic Pain, No Sputum, No Other Gastrointestinal: No Nausea, No Vomiting, No Abdominal Pain, No Diarrhea, No Constipation, No Melena, No Hematochezia, No Other Genitourinary: No Dysuria, No Frequency, No Incontinence, No Hematuria, No Retention; Other (On hemodialysis) Musculoskeletal: No other, No neck pain, No shoulder pain, No arm pain, No back pain, No hand pain, No leg pain, No foot pain Skin: No Rash, No Lesions, No Jaundice, No Bruising, No Other Objective Vitals Vital Signs Date Time Temp Pulse Resp B/P (MAP) Pulse Ox O2 Delivery O2 Flow Rate FiO2 10/09/25 22:45 87 16 149/77 (101) 99 10/09/25 22:00 30 10/09/25 22:00 Mechanical Ventilator+ 10/09/25 20:00 98.8 98.8 Intake/Output Intake and Output 10/09/25 07:00 Intake Total 682.688 ml Output Total 40 ml Balance 642.688 ml IV Total 282.688 ml Tube Feeding 400 ml Output Urine Total 40 ml # Bowel Movements 1 Exam Gen.: Patient lying in bed in medical ICU. Sedated, intubated on mechanical ventilator. Head: Normocephalic, atraumatic. Eyes: PERRLA. Ears: Normal external anatomy. Throat: Endotracheal tube and orogastric tube in place. Neck: Supple, trachea midline. Chest: Transmitted breath sounds bilaterally. Decreased air entry bilaterally. No wheezing. Bibasilar crackles. Cardiovascular: Positive S1, positive S2. Regular rate and rhythm. Abdomen: Positive bowel sounds in all 4 quadrants. Soft, nontender, nondistended. : Salas in place. Normal external genitalia. Rectal: Deferred. Skin: Warm, dry. Intact. Extremities: 2+ radial pulses bilaterally. No lower extremity edema. Neuro: Sedated. Medications Current Medications Medications Dose Ordered Sig/Esteban Route Start Time Stop Time Status Last Admin Dose Admin Diagnostic Test (Pha) 1 strip ACHS 09/26/25 22:00 10/09/25 22:08 1 STRIP Insulin Human Regular ACHS SC 09/26/25 22:00 10/09/25 11:30 2 UNITS Dextrose 50 ml UD PRN IV 09/26/25 21:15 Sodium Chloride 10 ml Q8HR IV 09/26/25 22:00 10/09/25 22:07 10 ML Sevelamer HCl 800 mg TIDWM PO 09/29/25 18:00 10/09/25 18:12 800 MG Amino Acid Protein 30 ml BID PO 09/30/25 22:00 10/09/25 22:07 30 ML Multivit/Ca Carb/ B Cmplx/FA/Prenat 1 tab DAILY PO 09/30/25 11:12 10/09/25 09:50 1 TAB Epinephrine HCl 250 ml @ 7.5 mls/hr Q24H IV 10/01/25 15:15 10/01/25 15:39 15 MLS/HR Norepinephrine Bitartrate 250 ml @ 3.75 mls/hr Q24H IV 10/01/25 15:15 10/06/25 09:44 3.75 MLS/HR Fentanyl Citrate 250 ml @ 2.5 mls/hr Q24H IV 10/01/25 15:15 10/06/25 09:53 5 MLS/HR Albumin Human 100 ml @ 100 mls/hr ANABELLA PRN IV 10/03/25 09:45 10/07/25 17:42 100 MLS/HR Aspirin 81 mg DAILY NG 10/05/25 10:00 10/09/25 09:50 81 MG Enteral Nutritional Formula 1,000 ml 40ML/HR GT 10/04/25 18:30 10/06/25 21:26 1,000 ML Famotidine 10 mg HS IV 10/07/25 22:00 10/09/25 22:07 10 MG Albuterol 2.5 mg Q6HR NEB 10/08/25 12:00 10/09/25 13:38 2.5 MG Ipratropium [place] 0.5 mg Q6HR NEB 10/08/25 12:00 10/09/25 13:38 0.5 MG Meropenem 50 ml @ 17 mls/hr DAILY IV 10/09/25 10:00 10/09/25 09:50 17 MLS/HR Artificial Tears 2 drop Q2HP PRN EACHEYE 10/08/25 14:30 Propofol 100 ml @ 3.966 mls/ hr Q24H IV 10/08/25 19:00 10/08/25 21:58 7.932 MLS/HR Laboratory Results Laboratory Tests 10/09/25 02:30 Chemistry Test 10/09/25 02:30 Calcium Level 8.6 mg/dL (8.7-10.4) L Magnesium Level 2.4 mg/dL (1.6-2.6) Phosphorus Level 5.9 mg/dL (2.4-5.1) H Urinalysis Test 10/08/25 22:28 Urine Color Dark-brown (Yellow) Urine Clarity Ex.turbid (Clear) Urine pH 6.0 (5.0-9.0) Urine Specific [place] 1.017 (1.001-1.035) Urine Protein 2+ (Negative) H Urine Ketones Negative (Negative) Urine Blood 3+ /uL (Negative) H Urine Nitrite Negative (Negative) Urine Bilirubin Negative (Negative) Urine Urobilinogen Normal mg/dL (Negative) Urine Leukocyte Esterase 3+ /uL (Negative) Urine RBC 320 /hpf (0 - 3) Urine WBC Clumps Present /hpf (None Seen) Urine Microscopic WBC 1809 /HPF (0-3) H Urine Squamous Epithelial Cells Many /hpf (<5) Urine Amorphous Crystals Few /hpf (None Seen) Urine Bacteria Many /hpf (None Seen) H Urine Mucus Few (None Seen) Urine Glucose Normal mg/dL (Normal) Blood Gas Results Test 10/09/25 06:36 Arterial Blood pH 7.440 (7.350-7.450) FiO2 % 30.0 Microbiology Microbiology Date/Time Source Procedure Growth Status 10/08/25 22:28 Urine - [place] Urine Culture - Preliminary Resulted 10/06/25 13:00 Sacrum Gram Stain - Final Resulted 10/06/25 13:00 Sacrum Wound Culture - Preliminary Resulted 10/02/25 17:33 Blood Blood Culture - Final NO GROWTH AFTER 5 DAYS OF INCUBATION. Complete Assessment/Plan Assessment/Plan Impression: Acute hypoxic respiratory failure On mechanical ventilator Lactic acidosis S/p cardiac arrest Acute on chronic CHF ESRD, on hemodialysis DM type II Shock Morbid obesity Cellulitis Sacral ulcer Events: Remains on vent support On AC mode; RR 18, VT 450, PEEP 5, FiO2 30% Improving O2 requirements Sedated on Propofol drip Off pressors, monitor hemodynamics. Patient noted to have increased pressor requirements during HD. Hemodialysis per Nephrology - HD today ABG reviewed, notable for alkalemia due to metabolic alkalosis Continue abx for cellulitis On meropenem Sputum cx revealed normal oropharyngeal elpidio. Hemodialysis per Nephrology Follow up Nephrology recs Monitor renal function Salas being exchanged. Tube feeds for nutritional support Wound care SBT - large VT 1000s, RR <10 BPM. Taper sedation as tolerated Will await for mentation to improve. Plan for CPAP trial once patient able to follow commands. Labs and imaging reviewed. Rest of plan as noted below. Plan: s/p intubation on mechanical ventilator. On AC mode; RR 18, VT 450, PEEP 5, FiO2 30% Titrate FIO2 to keep O2 saturation above 90%. VAP bundle. Daily ABG and CXR while intubated Pressors for hemodynamic support Titrate to keep mean arterial pressure greater than 65 mmHg. Continue antibiotics. Follow up cultures. HD per Nephrology Diurese w/ Lasix as tolerated Monitor renal function Monitor electrolytes. Supplement as necessary. Monitor ins and outs. Recommend judicious use of fluids due to CHF. Wound care Monitor lactic acid. Recommend diet and lifestyle modifications for weight reduction Obesity complicates all care GI prophylaxis. DVT prophylaxis. Prognosis: Poor given patient's multiple co-morbidities. Condition: Critical Rest of plan per hospitalist and other consultants. A total of 35 minutes of critical care time was spent reviewing the patient record, examining the patient, making a diagnostic and therapeutic plan, discussing this plan with the medical personnel, following up on diagnostic studies and following the patient for clinical stability excluding any and all procedures. At least 50% of this time was spent in direct, [id number] contact. Thank you, Dr. Cantu, for allowing me to participate in this patient's care. Further recommendations will depend on the patient's clinical course. Please do not hesitate to contact me if you have any questions or concerns. This medical document was created using an electronic medical record system with [employer] dictation system. Although these documentations are being carefully reviewed, there may still be some phonetic and typographical changes. The errors are purely typographical, due to imperfection on the software program, and do not reflect any compromise in the patient's medical care. Plan discussed with: Other (JOYCE Romero) Visit Coding Pulmonary Billing Provider: JEREMIAH GAMEZ MD Date of Service if different f: Oct 09, 2025 Common Visit Codes: [id number] INP/OBS CARE(HIGH), [id number] CARE 30-74 MIN JEREMIAH GAMEZ MD Oct 09, 2025 23:52
[2025-10-10] VITALS (94 sets, daily range): BP systolic 98–160; BP diastolic 42–79; PULSE 60–92; RESP 9–25; TEMP 97.4–99.1; O2SAT 95–100
[2025-10-10 02:57] LABS: Hemoglobin 8.4 g/dL (13.5-17.5)
[2025-10-10 03:00] LABS: Hematocrit 25.8 % (41.0-53.0); Mean Corpuscular Hemoglobin 31.6 pg (28.0-32.0); Mean Corpuscular Volume 97.2 fL (80.0-100.0); Nucleated Red Blood Cells % 0.1 %
[2025-10-10 03:07] LABS: Chloride 100 mmol/L (98-107); Potassium 4.3 mmol/L (3.5-5.1); Sodium 140 mmol/L (136-145)
[2025-10-10 03:08] LABS: Anion Gap 12 (5-15); Calcium 8.8 mg/dL (8.7-10.4); Carbon Dioxide 28 mmol/L (20-31)
[2025-10-10 03:13] LABS: BUN/Creatinine Ratio 8.1 (10.0-20.0)
[2025-10-10 03:14] LABS: Blood Urea Nitrogen 59 mg/dL (9-23); Glucose 125 mg/dL (74-106); Magnesium 2.4 mg/dL (1.6-2.6)
--- NOTE | 2025-10-10 06:07 | DVH ---
CHEST RADIOGRAPH Indication: Intubated Technique: Single frontal view of the chest was obtained COMPARISON: XY CHEST PORTABLE on DOS: 10/09/25, XY CHEST XRAY 1 VIEW on DOS: 10/09/25, XY CHEST XRAY 1 VIEW on DOS: 10/08/25, XY CHEST XRAY 1 VIEW on DOS: 10/07/25, XY CHEST XRAY 1 VIEW on DOS: 10/06/25 FINDINGS: Lines and Tubes: Endotracheal tube, enteric catheter in satisfactory position. Right tunneled central venous catheter and left chest wall pacemaker, unchanged. Lungs: Unchanged multifocal airspace disease. Pleura: No effusion.No pneumothorax. Cardiomediastinal contours: Unchanged cardiomegaly. Bones: Unremarkable IMPRESSION: No significant interval change.
[2025-10-10 09:37] LABS: Base Excess 0.0 mmol/L (-2.0-3.0)
[2025-10-10] MEDS ORDERED: LINEZOLID 600MG/300ML 300 ML IV SCH (16:00)
--- NOTE | 2025-10-10 16:00 | DVHPNRES ---
Progress Note Date Seen: Oct 10, 2025 Resident Creating Document: RERE SEO RESIDENT Medical Necessity Reason Pt with a Central, PICC or Fol: No The following are medically ne: Central Line, Salas Catheter Subjective Review of Systems Mr. Zamora is a 59 year old male with PMHx of ESRD with recent initiation of dialysis approximately 2 weeks ago , HFrEF with pacemaker placement, CVA in 2012, type 2 diabetes mellitus, gout, and hypertension, who presented to [facility] due to witnessed cardiopulmonary arrest during dialysis on 09/26/2025. At the time of evaluation the patient is sedated and intubated, majority of history is taken from previous medical record and his sister, Claudia Burnett. Per record, the patient became unresponsive during hemodialysis, CPR was intiated by bystanders and AED was used, by the time EMS arrived on scene the patient was found A&Ox4, GCS15, and moaning in pain. On evaluation in the ED, patient was complaining of dyspnea and chest wall pain. He was afebrile, normocardic with pacedc rhythm, hypertensive, and saturating adequately on room air. EKG showed paced rhythm with widened QTc. Initial labs are significant for normocytic anemia, hypokalemia, creatinine 6.85, BUN 43, and BNP 1232.11. Troponins were negative. UA without alteration. Chest xray significant for lungs with bilateral patchy airspace opacities, prominent pulmonary vasculature, with small bilateral pleural effusions. Head CT shows bilateral cerebral encephalomalacia and mild global cerebral volume loss without intracranial hemorrhage or mass effect. The patient was started on IV diuresis and admitted for further work up and managment. He was evaluated by cardiology who continued diuresis. The patient was evaluated by nephrology who state that given diminished cardiac function likely patient cannot tolerate large ultrafiltration goals. He was scheduled for further dialysis, having undergone dialysis on 09/28/2025 without issue. He was receiving dialysis on 10/01/2025 when he became bradycardic and went into asystole. Martine jarrell was called and CPR was intiated with ROSC achieved after 7 minutes of CPR. He was transferred to the ICU and he entered asystole two more times in a span of 15 minutes a with ROSC achieved after 11 minutes of CPR and at 2 minutes of CPR respectively. He was intubated and started on pressors, sedation, antibiotics, and bicarbonate drip. On initial evaluation in the ICU, the patient is intubated, sedated, and mechanically ventilated, on levophed 2 mcg, pupils are reactive, no response to painful stimulus, cough and gag are present. Labs are significant for normocytic anemia, worsening thrombocytopenia, and worsening renal function. ABG is significant for metabolic alkalosis. Most recent chest xray shows worsening congestion. Past medical history: ESRD on dialysis, HFrEF, CVA in 2013, Type 2 diabetes mellitus, and hypertension Past surgical history: Pacemaker placement and replacement, Right femoral fracture repair Allergies: Denies Social: Per sister, the patient currently smokes marijuana, denies other drug use. Patient currently lives with his mother and his brother. Home meds: Famotidine, Allopurinol, pregabalin, furosemide, sevelamer, metoprolol, and lokelma 10/10/2025; the ICU. He is intubated and mechanically ventilated. Pressors and sedation have been discontinued. He is afebrile, normochromic, with stable blood pressure. Labs are stable renal function worsening pending hemodialysis today. Due to results of ABG, respiratory had to increase FiO2 from 30% to 50%, Dr. Rivera peep was to be increased to 8. Cultures from wound are growing VRE, which meropenem will be discontinued, new antibiotics will be started. Per nephrology, Cathflo was installed yesterday due to dysfunctional port on his dialysis catheter. On evaluation today, neurologic state has not changed, which a neuro consult has been placed and a new head CT will be ordered. 10/09/2025: Patient seen in the ICU. He is intubated and mechanically ventilated. Pressors and have been discontinued. He is afebrile, normocardic, with stable BP. Labs are stable. Follow up UA shows signs of UTI. Patient shows signs of blinking and cough and gag, however no tracking, withdrawal to pain or other meaningful movements noted. 10/08/2025: Patient seen in the ICU. He is intubated, sedated, and mechanically ventilated. Levophed has been discontinued, with BP remaining stable. Sedation is being scaled back as tolerated. He continues to desaturate when moved. During yesterday's dialysis, patient became unstable requiring increased dose of levophed. Labs show increase in WBCs, however still within normal range. Wound culture from sacral wound are growing gram negative rods, for which ceftriaxone will be discontinued and meropenem will be started. Today on evaluation, there is presence of gag reflex and some movement of his mouth. Still no response to painful stimulus. 10/07/2025: Patient seen in the ICU. He is intubated, sedated, and mechanically ventilated. Patient's blood pressure continues to be unstable, requiring continued pressor. He continues to desaturate when moved, requiring increasing oxygen supplementation. Labs are slightly improved. Patient continues to have sluggish pupils and no cough or gag reflex, Head CT shows presence of chornic changes with no acute intracranial abnormalities. We will continue to lower sedation to determine neurologic state. 10/06/2025: Patient seen in the ICU. He is intubated, sedated, and mechanically ventilated. Continues on levophed. Per nurse, it was reported overnight that patient continues to desaturate when moved. Labs are stable. Blood cultures are showing no growth at 72 hours. Patient is pending head CT for evaluation of possible anoxic injury. We will continue to follow. 10/05/2025: Patient seen in the ICU. He is intubated, sedated, and mechanically ventilated. Overnight levophed had to be resumed. Per nurse, he continues to present desaturations to the 70s when moved. Additionally the patient continues to reach peak pressures on the vent for which sedation was increased. Labs are stable. Lab was contacted today to confirm blood culture results as they did not appear on the EMR, per lab patient's blood cultures are not going any organisms at this time. Chest xray today shows interval improvement. The patient is scheduled for dialysis today. Due to lack of cough and gag and minimally reactive pupils in the context of a patient post cardiac arrest x3, there is concern of anoxic brain injury. Head CT has been ordered. 10/04/2025: Patient seen in the ICU. He is intubated, sedated, and mechanically ventilated. Currently off pressors. Per nurse, patient presented desaturations to the 50s when moved has elevated peak pressures on the ventilator. Labs are significant for and a decrease in hemoglobin, renal function is stable at this time, he will undergo dialysis tomorrow. Blood cultures are currently growing Gram-positive cocci in pairs, for which he is currently be covered with ceftriaxone. We will continue to monitor. 10/03/2025: Patient seen and examined at bedside, patient has completed hemodialysis this morning, decrease sedation today, patient was taken off levophed. Per nurse, the patient will desaturate to 50s when moved. He is afebrile, normocardic, with MAP within normal range. He underwent dialysis yesterday with removal of 3 L. Blood cultures are growing gram positive cocci in pairs/ chain and wound cultures are growing E. coli. Patient will remain on ceftriaxone . Objective vital signs Vital Sign Date Time Temp Pulse Resp B/P (MAP) Pulse Ox O2 Delivery O2 Flow Rate FiO2 10/10/25 15:15 78 15 124/63 (83) 100 10/10/25 14:22 30 10/10/25 14:00 Mechanical Ventilator+ 10/10/25 12:00 98.8 98.8 Total Intake and Output 10/09/25 10/09/25 10/10/25 15:00 23:00 07:00 Intake Total 50 ml 400 ml 420 ml Output Total 75 ml 100 ml Balance 50 ml 325 ml 320 ml medications Current Medications Medications Dose Ordered Sig/Esteban Route Start Time Stop Time Status Last Admin Dose Admin Diagnostic Test (Pha) 1 strip ACHS 09/26/25 22:00 10/10/25 11:57 1 STRIP Insulin Human Regular ACHS SC 09/26/25 22:00 10/10/25 11:57 2 UNITS Dextrose 50 ml UD PRN IV 09/26/25 21:15 Sodium Chloride 10 ml Q8HR IV 09/26/25 22:00 10/10/25 14:00 10 ML Sevelamer HCl 800 mg TIDWM PO 09/29/25 18:00 10/10/25 11:57 800 MG Amino Acid Protein 30 ml BID PO 09/30/25 22:00 10/10/25 10:56 30 ML Multivit/Ca Carb/ B Cmplx/FA/Prenat 1 tab DAILY PO 09/30/25 11:12 10/10/25 10:56 1 TAB Epinephrine HCl 250 ml @ 7.5 mls/hr Q24H IV 10/01/25 15:15 10/01/25 15:39 15 MLS/HR Norepinephrine Bitartrate 250 ml @ 3.75 mls/hr Q24H IV 10/01/25 15:15 10/06/25 09:44 3.75 MLS/HR Fentanyl Citrate 250 ml @ 2.5 mls/hr Q24H IV 10/01/25 15:15 10/06/25 09:53 5 MLS/HR Albumin Human 100 ml @ 100 mls/hr ANABELLA PRN IV 10/03/25 09:45 10/07/25 17:42 100 MLS/HR Aspirin 81 mg DAILY NG 10/05/25 10:00 10/10/25 10:56 81 MG Enteral Nutritional Formula 1,000 ml 40ML/HR GT 10/04/25 18:30 10/06/25 21:26 1,000 ML Famotidine 10 mg HS IV 10/07/25 22:00 10/09/25 22:07 10 MG Albuterol 2.5 mg Q6HR NEB 10/08/25 12:00 10/10/25 12:02 2.5 MG Ipratropium [place] 0.5 mg Q6HR NEB 10/08/25 12:00 10/10/25 12:02 0.5 MG Meropenem 50 ml @ 17 mls/hr DAILY IV 10/09/25 10:00 10/10/25 10:56 17 MLS/HR Artificial Tears 2 drop Q2HP PRN EACHEYE 10/08/25 14:30 Propofol 100 ml @ 3.966 mls/ hr Q24H IV 10/08/25 19:00 10/08/25 21:58 7.932 MLS/HR Examination General: Patient is intubated, mechanically ventilated, non-reactive to painful stimulus HEENT: Normocephalic, atraumatic, 3 mm very sluggish, no EOM, right conjunctiva is edematous and red, pink moist mucous membrane, ET tube in place, orogastric tube in palce Respiratory/pulmonary: Bilateral chest expansion, decreased breath sounds bilaterally, wheezing in bilateral upper lobes Cardiovascular: Normal RRR Abdomen: Obese, Abdomen nondistended, normal bowel sounds, tense likely due to edema, no grimacing is observed on palpation, no palpable masses. Extremities: No deformities, bilateral lower extremity pedal edema 2+ in calves with scrotal swelling, large red circular ulcers present in right calf, presence of femoral CVC in right groin region, pulses are present, blisters present on left forearm Skin: Saccrococcyx 2.5x1.2x0.5cm, moist, open, full-thickness wound with moist red granulation tissue in the wound base and a mix of pale pink collagen scar tissue and dark brown adhered eschar material on the periwound area, there is minimal odor., darkened eschar lesions on his toes Neurological: hypoactive Gag and cough noted, patient blinks but does not track movements with his eyes, does not respond to verbal commands, no response to painful stimulus laboratory and microbiology Laboratory Tests 10/10/25 02:34 Test 10/10/25 02:34 Range/Units Serum Glucose 125 H 74-106 mg/dL Microbiology Date/Time Source Procedure Growth Status 10/08/25 22:28 Urine - Salas [place] Urine Culture - Preliminary Resulted 10/06/25 13:00 Sacrum Gram Stain - Final Resulted 10/06/25 13:00 Wound Culture - Preliminary Enterobacter cloacae Enterococcus faecalis - VRE Resulted 10/02/25 17:33 Blood Blood Culture - Final NO GROWTH AFTER 5 DAYS OF INCUBATION. Complete Problem List/Assessment/Plan Problem List/Assessment/Plan Assessment and Plan: Neurology # Sedated - Propofol 15 mcg/kg/hr - Fentanyl discontinued # Encephalomalacia - Head CT 09/26/2025: Bilateral cerebral encephalomalacia # Global cerebral volume loss - Head CT 09/26/2025: Mild global cerebral volume loss # epilepsy - Oxycarbazepine - held # Concern for anoxic brain injury - Head CT 10/06/25: No acute intracranial hemorrhage or mass effect.Age indeterminate small infarct involving the right cerebellum, favored to be chronic. If there is clinical concern for acute infarct, recommend MRI for further evaluation.Chronic bilateral parietal and occipital lobe infarcts. - Despite being off sedation for 48 hours, patient still has no meaningful neurologic response. New head CT has been ordered. Neurology has been consulted #History of CVA in 2013 Cardiovascular #S/p Cardiac arrest with ROSC - 09/26/2025: Witnessed at dialysis center, bystanders started CPR and AED use, ROSC achieved before EMS arrived - 10/01/2025: Rhythm: Asystole, ROSC achieved after 7 minutes of CPR - 10/01/2025: Rhythm: Asystole, ROSC achieved after 11 minutes of CPR - 10/01/2025: Rhythm: Asystole, ROSC achieved after 2 minutes of CPR # Cardiogenic shock # Lactic acidosis likely due to above - Cultures are pending - Levophed 2 mcg - Epinephrine has been discontinued # Acute on chronic HFrEF - BNP 1232.11 - Echocardiogram 08/22/2025: LVEF of 20-25%, Severe LV dysfunction, moderate mitral regurgitation - Per cardiology: Diuretics with lasix, aspirin, nitroglycerin SL - Lasix 40 mg IV daily - S/p pacemaker placement # Bilateral pleural effusion - Chest xray 09/26/2025: The lungs demonstrate bilateral patchy airspace opacities. The pulmonary vasculature is prominent. Small bilateral pleural effusions. #Hypertension - Amlodipine held by nephrology Respiratory # Acute hypoxic respiratory failure # Ventilator -Intubated (10/01/2025) -On [facility] vent : VCAC Mode RR 18 TV 450ml, PEEP Of 5 and FiO2 of 30% - 8.0 endotracheal tube, 24 at the lip - Cutlures from sputum: Normal orophargyngeal elpidio GI # Peptic ulcer prophylaxis -Pantoprazole 40 mg IV daily # Salas catheter draining clear urine Nephrology # ESRD on hemodialysis - Received dialysis without complication 09/29/2025 - S/p Cardiac arrest during dialysis 10/01/2025 - Per nephrology, the patient is scheduled for hemodialysis tomorrow - Strict Is and Os # Severe diabetic nephropathy #Acute metabolic alkalosis # Secondary hyperparathyroidism # Hypocalcemia - Monitor - Calcitrol # Hyperphosphatemia - Phosphate binders Infectious disease # Possible cellulitis secondary to lower extremity ulcers and sacral woound - Ceftriaxone - Wound culture: E. coli - Wound care is on board - Sacral wound culture: VRE -- Linezolid 600 mg IV q 12 hours #Septic vs Cardiogenic shock - Cultures: Negative at 72 hours - Ceftriaxone 1 g IV daily, discontinue Hem/onc #Thrombocytopenia, improved - Monitor #Normocytic anemia, likely due to chronic disease - Monitor Hand H - Per nephrology: Epogen 75435 SQ 3 weekly as tolerated Endocrine #Type 2 diabetes mellitus - SSI -Accu cheks MSK # Gout - Allopurinol 300 mg PO daily Skin # Circular ulcers present on right leg, present on admission # Possible Sacral Ulcer stage 2, present on admission - Wound culture: VRE - Meropenem 500 mg daily, discontinued - Linezolid 600 mg IV q 12 hours Marijuana use DVT prophylaxis: SCD PUD prophylaxis: Pantoprazole 40 mg IV daily Lines -R femoral central line: 10/01/2025 -Salas catheter 09/27/2025 -ET tube: 10/01/2025 - Tunneled catheter in right pectoral region Patient has right femoral line given the presence of right tunnel catheter in right pectoral region and pacemaker in left field. We will give the patient more time for sedation to wear off for accurate neurological evaluation. Drips during [facility] ventilation Fentanyl Discontinued Propofol: 15 Bicarbonate drip discontinued Levophed discontinued Critical care time 45 minutes excluding procedure. Code status discussed greater than 20 minutes: Full CODE STATUS. Sister, Claudia Burnett, was updated over the phone. Plan discussed with Dr Rivera Plan discussed with: Other (Sister (Claudia), Nurse (Fang)) My Orders My Orders Orders - RERE SEO Procedure Category Date Status Time Ok To Change Salas ORDERS 10/09/25 Transmitted 16:30 * Neurology Consult CONS 10/10/25 Transmitted 11:34 Dietary Evaluation Review Comments: Nutrition Recommendation: 1) CCHO 75gm + renal standard diet 2) Pro-stat 1 pk BID 3) Nephro-nellie 1 tab daily 4) Monitor PO intake, lab values, weight trend, and I/O Expected Outcomes/Goals: Wound to improve Intake to meet >75% estimated needs FU 3-5 days Visit Coding STANDARD RES Billing Provider: RERE SEO Date of Service if different f: Oct 10, 2025 Common Visit Codes: [id number] CARE 30-74 MIN RERE SEO Oct 10, 2025 16:00
[2025-10-10] MEDS: LINEZOLID 600MG/300ML 300 ML IV SCH (16:15)
--- NOTE | 2025-10-10 16:49 | DVHPN2 ---
Progress Note - Dictate Date Seen: Oct 10, 2025 Medical Necessity Reason Pt with a Central, PICC or Fol: No The following are medically ne: Central Line, Salas Catheter Subjective Patient seen on dialysis earlier today. He was tolerating ultrafiltration without requiring norepinephrine support at the time of my evaluation. vital signs Vital Sign Date Time Temp Pulse Resp B/P (MAP) Pulse Ox O2 Delivery O2 Flow Rate FiO2 10/10/25 16:01 81 21 142/66 (91) 100 50 10/10/25 14:00 Mechanical Ventilator+ 10/10/25 12:00 98.8 98.8 Total Intake and Output 10/09/25 10/09/25 10/10/25 15:00 23:00 07:00 Intake Total 50 ml 400 ml 420 ml Output Total 75 ml 100 ml Balance 50 ml 325 ml 320 ml medications Current Medications Medications Dose Ordered Sig/Esteban Route Start Time Stop Time Status Last Admin Dose Admin Diagnostic Test (Pha) 1 strip ACHS 09/26/25 22:00 10/10/25 11:57 1 STRIP Insulin Human Regular ACHS SC 09/26/25 22:00 10/10/25 11:57 2 UNITS Dextrose 50 ml UD PRN IV 09/26/25 21:15 Sodium Chloride 10 ml Q8HR IV 09/26/25 22:00 10/10/25 14:00 10 ML Sevelamer HCl 800 mg TIDWM PO 09/29/25 18:00 10/10/25 11:57 800 MG Amino Acid Protein 30 ml BID PO 09/30/25 22:00 10/10/25 10:56 30 ML Multivit/Ca Carb/ B Cmplx/FA/Prenat 1 tab DAILY PO 09/30/25 11:12 10/10/25 10:56 1 TAB Epinephrine HCl 250 ml @ 7.5 mls/hr Q24H IV 10/01/25 15:15 10/01/25 15:39 15 MLS/HR Norepinephrine Bitartrate 250 ml @ 3.75 mls/hr Q24H IV 10/01/25 15:15 10/06/25 09:44 3.75 MLS/HR Fentanyl Citrate 250 ml @ 2.5 mls/hr Q24H IV 10/01/25 15:15 10/06/25 09:53 5 MLS/HR Albumin Human 100 ml @ 100 mls/hr ANABELLA PRN IV 10/03/25 09:45 10/07/25 17:42 100 MLS/HR Aspirin 81 mg DAILY NG 10/05/25 10:00 10/10/25 10:56 81 MG Enteral Nutritional Formula 1,000 ml 40ML/HR GT 10/04/25 18:30 10/06/25 21:26 1,000 ML Famotidine 10 mg HS IV 10/07/25 22:00 10/09/25 22:07 10 MG Albuterol 2.5 mg Q6HR NEB 10/08/25 12:00 10/10/25 12:02 2.5 MG Ipratropium [place] 0.5 mg Q6HR NEB 10/08/25 12:00 10/10/25 12:02 0.5 MG Artificial Tears 2 drop Q2HP PRN EACHEYE 10/08/25 14:30 Propofol 100 ml @ 3.966 mls/ hr Q24H IV 10/08/25 19:00 10/08/25 21:58 7.932 MLS/HR Linezolid 300 ml @ 150 mls/hr Q12H IV 10/10/25 16:15 objective Gen: nad, intubated lungs: cta anteriorly cvs: no rub abd: soft, bowel sounds audible ext: + edema laboratory and microbiology Laboratory Tests 10/10/25 02:34 Test 10/10/25 02:34 Range/Units Serum Glucose 125 H 74-106 mg/dL Assessment/Plan End-stage renal disease on hemodialysis Acute respiratory failure, patient intubated on ventilator Status post cardiac arrest x3 Decompensated heart failure with ejection fraction less than 25% Diabetes with severe diabetic nephropathy Severe peripheral artery disease Anemia of chronic kidney disease Encephalomalacia Hyperphosphatemia Hyperparathyroidism, secondary Recommendations - UF as tolerated today with treatment - we will continue to evaluate daily for kidney replacement therapy needs - hemodialysis catheter functioning well during today's treatment Dietary Evaluation Review Comments: Nutrition Recommendation: 1) CCHO 75gm + renal standard diet 2) Pro-stat 1 pk BID 3) Nephro-nellie 1 tab daily 4) Monitor PO intake, lab values, weight trend, and I/O Expected Outcomes/Goals: Wound to improve Intake to meet >75% estimated needs FU 3-5 days Plan discussed with: Other STEPHANIA SONG MD Oct 10, 2025 16:49
--- NOTE | 2025-10-10 17:07 | DVH ---
CT HEAD WITHOUT CONTRAST INDICATION: Eval post CPR COMPARISON: CT HEAD WITHOUT CONTRAST on DOS: 10/06/25, CT HEAD WITHOUT CONTRAST on DOS: 09/26/25, CT HEAD WITHOUT CONTRAST on DOS: 02/08/24, CT HEAD WITHOUT CONTRAST on DOS: 01/21/24 TECHNIQUE: CT of the head without intravenous contrast. RADIATION DOSE: CTDIvol: 53.53 mGy, DLP: 971.88 mGy*cm FINDINGS: There is no evidence of acute intracranial hemorrhage, extra-axial collection, mass effect, midline shift, herniation or hydrocephalus. The ventricles, sulci and cisterns are age appropriate. The nguyen-white differentiation is intact. 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 Likely chronic right cerebellar infarct. The visualized paranasal sinuses and mastoid air cells are clear. The surrounding soft tissues and osseous structures are unremarkable. IMPRESSION: 1. No acute intracranial abnormality. 2. 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 3. Likely chronic right cerebellar infarct.
--- NOTE | 2025-10-10 22:48 | DVHPN2 ---
Progress Note - Dictate Date Seen: Oct 10, 2025 Medical Necessity Reason Pt with a Central, PICC or Fol: No The following are medically ne: Central Line, Salas Catheter Subjective Patient was seen and evaluated in follow up in the ICU. Patient is intubated and sedated on ventilator. 30% FiO2. HGB 8.4, HCT 25.8, BUN 59, [employer] 7.25. Chest x- ray is unchanged. vital signs Vital Sign Date Time Temp Pulse Resp B/P (MAP) Pulse Ox O2 Delivery O2 Flow Rate FiO2 10/10/25 12:30 81 22 133/60 (84) 100 10/10/25 12:02 30 10/10/25 12:00 98.8 98.8 10/10/25 12:00 Mechanical Ventilator+ Total Intake and Output 10/09/25 10/09/25 10/10/25 15:00 23:00 07:00 Intake Total 50 ml 400 ml 420 ml Output Total 75 ml 100 ml Balance 50 ml 325 ml 320 ml medications Current Medications Medications Dose Ordered Sig/Esteban Route Start Time Stop Time Status Last Admin Dose Admin Diagnostic Test (Pha) 1 strip ACHS 09/26/25 22:00 10/10/25 11:57 1 STRIP Insulin Human Regular ACHS SC 09/26/25 22:00 10/10/25 11:57 2 UNITS Dextrose 50 ml UD PRN IV 09/26/25 21:15 Sodium Chloride 10 ml Q8HR IV 09/26/25 22:00 10/10/25 05:55 10 ML Sevelamer HCl 800 mg TIDWM PO 09/29/25 18:00 10/10/25 11:57 800 MG Amino Acid Protein 30 ml BID PO 09/30/25 22:00 10/10/25 10:56 30 ML Multivit/Ca Carb/ B Cmplx/FA/Prenat 1 tab DAILY PO 09/30/25 11:12 10/10/25 10:56 1 TAB Epinephrine HCl 250 ml @ 7.5 mls/hr Q24H IV 10/01/25 15:15 10/01/25 15:39 15 MLS/HR Norepinephrine Bitartrate 250 ml @ 3.75 mls/hr Q24H IV 10/01/25 15:15 10/06/25 09:44 3.75 MLS/HR Fentanyl Citrate 250 ml @ 2.5 mls/hr Q24H IV 10/01/25 15:15 10/06/25 09:53 5 MLS/HR Albumin Human 100 ml @ 100 mls/hr ANABELLA PRN IV 10/03/25 09:45 10/07/25 17:42 100 MLS/HR Aspirin 81 mg DAILY NG 10/05/25 10:00 10/10/25 10:56 81 MG Enteral Nutritional Formula 1,000 ml 40ML/HR GT 10/04/25 18:30 10/06/25 21:26 1,000 ML Famotidine 10 mg HS IV 10/07/25 22:00 10/09/25 22:07 10 MG Albuterol 2.5 mg Q6HR NEB 10/08/25 12:00 10/10/25 12:02 2.5 MG Ipratropium [place] 0.5 mg Q6HR NEB 10/08/25 12:00 10/10/25 12:02 0.5 MG Meropenem 50 ml @ 17 mls/hr DAILY IV 10/09/25 10:00 10/10/25 10:56 17 MLS/HR Artificial Tears 2 drop Q2HP PRN EACHEYE 10/08/25 14:30 Propofol 100 ml @ 3.966 mls/ hr Q24H IV 10/08/25 19:00 10/08/25 21:58 7.932 MLS/HR objective GENERAL: Ill appearing, intubated on ventilator. Morbidly obese. EYES: PERRL, EOMI. Anicteric. HENT: Moist mucous membranes. LUNGS: Decreased breath sounds. CARDIOVASCULAR: Regular rate and rhythm. ABDOMEN: Soft, non-tender and non-distended. EXTREMITIES: No edema. SKIN: Warm, dry. laboratory and microbiology Laboratory Tests 10/10/25 02:34 Test 10/10/25 02:34 Range/Units Serum Glucose 125 H 74-106 mg/dL Problem List Acute syncopal episode. Status post cardiac arrest x3. ESRD on hemodialysis. Hypertension. Peripheral neuropathy. Severe peripheral artery disease. Acute on chronic congestive heart failure exacerbation. History of CVA. Anemia of chronic disease. Diabetes with severe diabetic nephropathy. History of pacemaker. Morbidly obese. Decompensated heart failure with ejection fraction less than 25%. Encephalomalacia. Hyperphosphatemia. Hyperparathyroidism. Assessment/Plan Continued all current supportive medical care. Aspirin. IV antibiotics as ordered. Morphine and [place] for pain management. Vasopressors for hemodynamic support. Additional plan as per the hospital course. Critical care time of 45 minutes provided to include time spent evaluation of patient at bedside, when appropriate patient/family education for diagnosis, treatment plan, review of pertinent medical information and discussion of care with specialty providers and PCP. Mechanical ventilator parameters, treatment and adjustments have personally been reviewed by me and treatment plan by cooker meal has also been reviewed. Dietary Evaluation Review Comments: Nutrition Recommendation: 1) CCHO 75gm + renal standard diet 2) Pro-stat 1 pk BID 3) Nephro-nellie 1 tab daily 4) Monitor PO intake, lab values, weight trend, and I/O Expected Outcomes/Goals: Wound to improve Intake to meet >75% estimated needs FU 3-5 days Plan discussed with: MATTHEW Sneed MD Oct 10, 2025 13:57
--- NOTE | 2025-10-10 23:02 | DVHPN2 ---
[facility] DOS: 10/10/2025 Patient seen and examined at bedside. Intubated on mechanical ventilator. Overnight events reviewed. Reviewed: Care Plan, H&P, Labs, Medications, Previous Orders, Radiology Changes from previous H/P or p: No Changes Eyes: No Pain, No Vision change, No Conjunctivae inflammation, No Eyelid inflammation, No Other, No Redness ENT: No Ear pain, No Ear discharge, No Nose pain, No Nose discharge, No Nose congestion, No Mouth pain, No Mouth swelling, No Throat pain, No Throat swelling, No Other Cardiovascular: Chest Pain; No Palpitations, No Orthopnea, No Paroxysmal Noc. Dyspnea, No Edema, No Lt Headedness, No Other Respiratory: No Cough, No Dry, No Shortness of breath, No SOB with excertion, No Wheezing, No Hemoptysis, No Pleuritic Pain, No Sputum, No Other Gastrointestinal: No Nausea, No Vomiting, No Abdominal Pain, No Diarrhea, No Constipation, No Melena, No Hematochezia, No Other Genitourinary: No Dysuria, No Frequency, No Incontinence, No Hematuria, No Retention; Other (On hemodialysis) Musculoskeletal: No other, No neck pain, No shoulder pain, No arm pain, No back pain, No hand pain, No leg pain, No foot pain Skin: No Rash, No Lesions, No Jaundice, No Bruising, No Other Objective Vitals Vital Signs Date Time Temp Pulse Resp B/P (MAP) Pulse Ox O2 Delivery O2 Flow Rate FiO2 10/10/25 21:58 60 18 115/52 (73) 99 40 10/10/25 18:00 Mechanical Ventilator+ 10/10/25 12:00 98.8 98.8 Intake/Output Intake and Output 10/10/25 07:00 Intake Total 870 ml Output Total 175 ml Balance 695 ml IV Total 50 ml Tube Feeding 820 ml Output Urine Total 175 ml # Bowel Movements 1 Exam Gen.: Patient lying in bed in medical ICU. Intubated on mechanical ventilator. Head: Normocephalic, atraumatic. Eyes: PERRLA. Ears: Normal external anatomy. Throat: Endotracheal tube and orogastric tube in place. Neck: Supple, trachea midline. Chest: Transmitted breath sounds bilaterally. Decreased air entry bilaterally. No wheezing. Bibasilar crackles. Cardiovascular: Positive S1, positive S2. Regular rate and rhythm. Abdomen: Positive bowel sounds in all 4 quadrants. Soft, nontender, nondistended. : Salas in place. Normal external genitalia. Rectal: Deferred. Skin: Warm, dry. Intact. Extremities: 2+ radial pulses bilaterally. No lower extremity edema. Neuro: Off sedation Medications Current Medications Medications Dose Ordered Sig/Esteban Route Start Time Stop Time Status Last Admin Dose Admin Diagnostic Test (Pha) 1 strip ACHS 09/26/25 22:00 10/10/25 22:10 1 STRIP Insulin Human Regular ACHS SC 09/26/25 22:00 10/10/25 11:57 2 UNITS Dextrose 50 ml UD PRN IV 09/26/25 21:15 Sodium Chloride 10 ml Q8HR IV 09/26/25 22:00 10/10/25 22:10 10 ML Sevelamer HCl 800 mg TIDWM PO 09/29/25 18:00 10/10/25 19:06 800 MG Amino Acid Protein 30 ml BID PO 09/30/25 22:00 10/10/25 22:10 30 ML Multivit/Ca Carb/ B Cmplx/FA/Prenat 1 tab DAILY PO 09/30/25 11:12 10/10/25 10:56 1 TAB Epinephrine HCl 250 ml @ 7.5 mls/hr Q24H IV 10/01/25 15:15 10/01/25 15:39 15 MLS/HR Norepinephrine Bitartrate 250 ml @ 3.75 mls/hr Q24H IV 10/01/25 15:15 10/06/25 09:44 3.75 MLS/HR Albumin Human 100 ml @ 100 mls/hr ANABELLA PRN IV 10/03/25 09:45 10/07/25 17:42 100 MLS/HR Aspirin 81 mg DAILY NG 10/05/25 10:00 10/10/25 10:56 81 MG Enteral Nutritional Formula 1,000 ml 40ML/HR GT 10/04/25 18:30 10/10/25 22:15 1,000 ML Famotidine 10 mg HS IV 10/07/25 22:00 10/10/25 22:10 10 MG Albuterol 2.5 mg Q6HR NEB 10/08/25 12:00 10/10/25 18:17 2.5 MG Ipratropium [place] 0.5 mg Q6HR NEB 10/08/25 12:00 10/10/25 18:17 0.5 MG Artificial Tears 2 drop Q2HP PRN EACHEYE 10/08/25 14:30 Propofol 100 ml @ 3.966 mls/ hr Q24H IV 10/08/25 19:00 10/08/25 21:58 7.932 MLS/HR Linezolid 300 ml @ 150 mls/hr Q12H IV 10/10/25 16:15 10/10/25 16:15 150 MLS/HR Laboratory Results Laboratory Tests 10/10/25 02:34 Chemistry Test 10/10/25 02:34 Calcium Level 8.8 mg/dL (8.7-10.4) Magnesium Level 2.4 mg/dL (1.6-2.6) Phosphorus Level 5.8 mg/dL (2.4-5.1) H Urinalysis Test 10/08/25 22:28 Urine Color Dark-brown (Yellow) Urine Clarity Ex.turbid (Clear) Urine pH 6.0 (5.0-9.0) Urine Specific [place] 1.017 (1.001-1.035) Urine Protein 2+ (Negative) H Urine Ketones Negative (Negative) Urine Blood 3+ /uL (Negative) H Urine Nitrite Negative (Negative) Urine Bilirubin Negative (Negative) Urine Urobilinogen Normal mg/dL (Negative) Urine Leukocyte Esterase 3+ /uL (Negative) Urine RBC 320 /hpf (0 - 3) Urine WBC Clumps Present /hpf (None Seen) Urine Microscopic WBC 1809 /HPF (0-3) H Urine Squamous Epithelial Cells Many /hpf (<5) Urine Amorphous Crystals Few /hpf (None Seen) Urine Bacteria Many /hpf (None Seen) H Urine Mucus Few (None Seen) Urine Glucose Normal mg/dL (Normal) Blood Gas Results Test 10/10/25 07:50 Arterial Blood pH 7.397 (7.350-7.450) FiO2 % 30.0 Microbiology Microbiology Date/Time Source Procedure Growth Status 10/08/25 22:28 Urine - [place] Urine Culture - Preliminary Resulted 10/06/25 13:00 Sacrum Gram Stain - Final Resulted 10/06/25 13:00 Wound Culture - Preliminary Enterobacter cloacae Enterococcus faecalis - VRE Resulted 10/02/25 17:33 Blood Blood Culture - Final NO GROWTH AFTER 5 DAYS OF INCUBATION. Complete Assessment/Plan Assessment/Plan Impression: Acute hypoxic respiratory failure On mechanical ventilator Lactic acidosis S/p cardiac arrest Acute on chronic CHF ESRD, on hemodialysis DM type II Shock Morbid obesity Cellulitis Sacral ulcer Events: Remains on vent support On AC mode; RR 18, VT 450, PEEP 5-->8, FiO2 30-->50% Off sedation for [address] head reviewed, reveals no acute intracranial abnormality. 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 Likely chronic right cerebellar infarct. Off pressors, monitor hemodynamics. Patient noted to have increased pressor requirements during HD. Hemodialysis per Nephrology - HD this PM ABG reviewed, compensated Continue abx for cellulitis On meropenem Sputum cx revealed normal oropharyngeal elpidio. Hemodialysis per Nephrology Follow up Nephrology recs Monitor renal function Salas was exchanged 10/09. Tube feeds for nutritional support Wound care SBT - large VT 1000s, RR <10 BPM. Taper sedation as tolerated (off sedation for 48 hours) Will await for mentation to improve. Plan for CPAP trial once patient able to follow commands. Labs and imaging reviewed. Rest of plan as noted below. Plan: s/p intubation on mechanical ventilator. On AC mode; RR 18, VT 450, PEEP 8, FiO2 50% Titrate FIO2 to keep O2 saturation above 90%. VAP bundle. Daily ABG and CXR while intubated Pressors for hemodynamic support Titrate to keep mean arterial pressure greater than 65 mmHg. Continue antibiotics. Follow up cultures. HD per Nephrology Diurese to euvolemia Monitor renal function Monitor electrolytes. Supplement as necessary. Monitor ins and outs. Recommend judicious use of fluids due to CHF. Wound care Monitor lactic acid. Recommend diet and lifestyle modifications for weight reduction Obesity complicates all care GI prophylaxis. DVT prophylaxis. Prognosis: Poor given patient's multiple co-morbidities. Condition: Critical Rest of plan per hospitalist and other consultants. A total of 35 minutes of critical care time was spent reviewing the patient record, examining the patient, making a diagnostic and therapeutic plan, discussing this plan with the medical personnel, following up on diagnostic studies and following the patient for clinical stability excluding any and all procedures. At least 50% of this time was spent in direct, [id number] contact. Thank you, Dr. Cantu, for allowing me to participate in this patient's care. Further recommendations will depend on the patient's clinical course. Please do not hesitate to contact me if you have any questions or concerns. This medical document was created using an electronic medical record system with [employer] dictation system. Although these documentations are being carefully reviewed, there may still be some phonetic and typographical changes. The errors are purely typographical, due to imperfection on the software program, and do not reflect any compromise in the patient's medical care. Plan discussed with: Other (JOYCE Headley) My Orders Orders - JEREMIAH GAMEZ MD Procedure Category Date Status Time Ventilator Orders RT 10/10/25 Transmitted 15:02 Visit Coding Pulmonary Billing Provider: JEREMIAH GAMEZ MD Date of Service if different f: Oct 10, 2025 Common Visit Codes: [id number] INP/OBS CARE(HIGH), [id number] CARE 30-74 MIN JEREMIAH GAMEZ MD Oct 10, 2025 23:02
[2025-10-11] VITALS (100 sets, daily range): BP systolic 104–172; BP diastolic 43–124; PULSE 60–96; RESP 8–24; TEMP 97.4–98.9; O2SAT 97–100
[2025-10-11 03:35] LABS: Hematocrit 24.6 % (41.0-53.0); Hemoglobin 8.0 g/dL (13.5-17.5); Mean Corpuscular Volume 97.4 fL (80.0-100.0)
[2025-10-11 03:37] LABS: Mean Corpuscular Hemoglobin 31.6 pg (28.0-32.0); Nucleated Red Blood Cells % 0.2 %
[2025-10-11 03:52] LABS: Alanine Aminotransferase 11 U/L (7-40); Anion Gap 11 (5-15); BUN/Creatinine Ratio 9.4 (10.0-20.0); Calcium 8.8 mg/dL (8.7-10.4); Carbon Dioxide 29 mmol/L (20-31); Chloride 100 mmol/L (98-107); Magnesium 2.5 mg/dL (1.6-2.6); Potassium 3.7 mmol/L (3.5-5.1); Sodium 140 mmol/L (136-145); Total Protein 6.1 g/dL (5.7-8.2)
[2025-10-11 03:53] LABS: Albumin 3.0 g/dL (3.2-4.8); Alkaline Phosphatase 169 U/L (46-116); Bilirubin, Total 0.4 mg/dL (0.2-1.0); Blood Urea Nitrogen 57 mg/dL (9-23); Glucose 122 mg/dL (74-106)
--- NOTE | 2025-10-11 06:53 | DVH ---
INDICATION: PT INTUBATED TECHNIQUE: Single frontal view of the chest was obtained COMPARISON: XY CHEST XRAY 1 VIEW on DOS: 10/10/25, XY CHEST PORTABLE on DOS: 10/09/25, XY CHEST XRAY 1 VIEW on DOS: 10/09/25, XY CHEST XRAY 1 VIEW on DOS: 10/08/25, XY CHEST XRAY 1 VIEW on DOS: 10/07/25, XY CHEST XRAY 1 VIEW on DOS: 10/10/25 FINDINGS: Lines and Tubes: Endotracheal tube, enteric catheter in satisfactory position. Right tunneled central venous catheter and left chest wall pacemaker, unchanged. Lungs: Unchanged multifocal airspace disease. Pleura: No effusion.No pneumothorax. Cardiomediastinal contours: Unchanged cardiomegaly. Bones: Unremarkable IMPRESSION: No significant interval change.
[2025-10-11 08:12] LABS: Base Excess 2.6 mmol/L (-2.0-3.0)
--- NOTE | 2025-10-11 11:39 | DVHPN2 ---
Progress Note - Dictate Date Seen: Oct 11, 2025 Medical Necessity Reason Pt with a Central, PICC or Fol: No The following are medically ne: Central Line, Salas Catheter Subjective Patient resting comfortably this morning, tolerated dialysis yesterday. vital signs Vital Sign Date Time Temp Pulse Resp B/P (MAP) Pulse Ox O2 Delivery O2 Flow Rate FiO2 10/11/25 10:05 65 19 108/49 (68) 99 40 10/11/25 10:00 Mechanical Ventilator+ 10/11/25 08:00 97.9 97.9 Total Intake and Output 10/10/25 10/10/25 10/11/25 15:00 23:00 07:00 Intake Total 283.0 ml 307.715 ml Output Total 150 ml 100 ml Balance 133.0 ml 207.715 ml medications Current Medications Medications Dose Ordered Sig/Esteban Route Start Time Stop Time Status Last Admin Dose Admin Diagnostic Test (Pha) 1 strip ACHS 09/26/25 22:00 10/11/25 06:15 1 STRIP Insulin Human Regular ACHS SC 09/26/25 22:00 10/11/25 06:06 2 UNITS Dextrose 50 ml UD PRN IV 09/26/25 21:15 Sodium Chloride 10 ml Q8HR IV 09/26/25 22:00 10/11/25 06:00 10 ML Sevelamer HCl 800 mg TIDWM PO 09/29/25 18:00 10/11/25 08:40 800 MG Amino Acid Protein 30 ml BID PO 09/30/25 22:00 10/11/25 08:40 30 ML Multivit/Ca Carb/ B Cmplx/FA/Prenat 1 tab DAILY PO 09/30/25 11:12 10/11/25 08:40 1 TAB Epinephrine HCl 250 ml @ 7.5 mls/hr Q24H IV 10/01/25 15:15 10/01/25 15:39 15 MLS/HR Norepinephrine Bitartrate 250 ml @ 3.75 mls/hr Q24H IV 10/01/25 15:15 10/06/25 09:44 3.75 MLS/HR Albumin Human 100 ml @ 100 mls/hr ANABELLA PRN IV 10/03/25 09:45 10/07/25 17:42 100 MLS/HR Aspirin 81 mg DAILY NG 10/05/25 10:00 10/11/25 08:40 81 MG Enteral Nutritional Formula 1,000 ml 40ML/HR GT 10/04/25 18:30 10/10/25 22:15 1,000 ML Famotidine 10 mg HS IV 10/07/25 22:00 10/10/25 22:10 10 MG Albuterol 2.5 mg Q6HR NEB 10/08/25 12:00 10/11/25 06:28 2.5 MG Ipratropium [place] 0.5 mg Q6HR NEB 10/08/25 12:00 10/11/25 06:28 0.5 MG Artificial Tears 2 drop Q2HP PRN EACHEYE 10/08/25 14:30 Propofol 100 ml @ 3.966 mls/ hr Q24H IV 10/08/25 19:00 10/08/25 21:58 7.932 MLS/HR Linezolid 300 ml @ 150 mls/hr Q12H IV 10/10/25 16:15 10/11/25 04:00 150 MLS/HR objective Gen: nad, intubated lungs: cta anteriorly cvs: no rub abd: soft, bowel sounds audible ext: + edema laboratory and microbiology Laboratory Tests 10/11/25 03:18 Test 10/11/25 03:18 Range/Units Serum Glucose 122 H 74-106 mg/dL Assessment/Plan End-stage renal disease on hemodialysis Acute respiratory failure, patient intubated on ventilator Status post cardiac arrest x3 Decompensated heart failure with ejection fraction less than 25% Diabetes with severe diabetic nephropathy Severe peripheral artery disease Anemia of chronic kidney disease Encephalomalacia Hyperphosphatemia Hyperparathyroidism, secondary Recommendations - metabolic and volume status acceptable today - we will continue to evaluate daily for dialysis needs - next hemodialysis tentatively October 12. Dietary Evaluation Review Comments: Nutrition Recommendation: 1) CCHO 75gm + renal standard diet 2) Pro-stat 1 pk BID 3) Nephro-nellie 1 tab daily 4) Monitor PO intake, lab values, weight trend, and I/O Expected Outcomes/Goals: Wound to improve Intake to meet >75% estimated needs FU 3-5 days Plan discussed with: STEPHANIA Sanchez MD Oct 11, 2025 11:39
--- NOTE | 2025-10-11 13:37 | DVHPNRES ---
Progress Note Date Seen: Oct 11, 2025 Resident Creating Document: EFRAIN CARDONA RESIDENT Has the PT tested + for MRSA If YES, has PT been informed?: No Medical Necessity Reason Pt with a Central, PICC or Fol: No The following are medically ne: Central Line, Salas Catheter Subjective Review of Systems Mr. Zamora is a 59 year old male with PMHx of ESRD with recent initiation of dialysis approximately 2 weeks ago , HFrEF with pacemaker placement, CVA in 2012, type 2 diabetes mellitus, gout, and hypertension, who presented to [facility] due to witnessed cardiopulmonary arrest during dialysis on 09/26/2025. At the time of evaluation the patient is sedated and intubated, majority of history is taken from previous medical record and his sister, Claudia Burnett. Per record, the patient became unresponsive during hemodialysis, CPR was intiated by bystanders and AED was used, by the time EMS arrived on scene the patient was found A&Ox4, GCS15, and moaning in pain. On evaluation in the ED, patient was complaining of dyspnea and chest wall pain. He was afebrile, normocardic with pacedc rhythm, hypertensive, and saturating adequately on room air. EKG showed paced rhythm with widened QTc. Initial labs are significant for normocytic anemia, hypokalemia, creatinine 6.85, BUN 43, and BNP 1232.11. Troponins were negative. UA without alteration. Chest xray significant for lungs with bilateral patchy airspace opacities, prominent pulmonary vasculature, with small bilateral pleural effusions. Head CT shows bilateral cerebral encephalomalacia and mild global cerebral volume loss without intracranial hemorrhage or mass effect. The patient was started on IV diuresis and admitted for further work up and managment. He was evaluated by cardiology who continued diuresis. The patient was evaluated by nephrology who state that given diminished cardiac function likely patient cannot tolerate large ultrafiltration goals. He was scheduled for further dialysis, having undergone dialysis on 09/28/2025 without issue. He was receiving dialysis on 10/01/2025 when he became bradycardic and went into asystole. Martine jarrell was called and CPR was intiated with ROSC achieved after 7 minutes of CPR. He was transferred to the ICU and he entered asystole two more times in a span of 15 minutes a with ROSC achieved after 11 minutes of CPR and at 2 minutes of CPR respectively. He was intubated and started on pressors, sedation, antibiotics, and bicarbonate drip. On initial evaluation in the ICU, the patient is intubated, sedated, and mechanically ventilated, on levophed 2 mcg, pupils are reactive, no response to painful stimulus, cough and gag are present. Labs are significant for normocytic anemia, worsening thrombocytopenia, and worsening renal function. ABG is significant for metabolic alkalosis. Most recent chest xray shows worsening congestion. Past medical history: ESRD on dialysis, HFrEF, CVA in 2012, Type 2 diabetes mellitus, and hypertension Past surgical history: Pacemaker placement and replacement, Right femoral fracture repair Allergies: Denies Social: Per sister, the patient currently smokes marijuana, denies other drug use. Patient currently lives with his mother and his brother. Home meds: Famotidine, Allopurinol, pregabalin, furosemide, sevelamer, metoprolol, and lokelma 10/11/25 The patient remains critically ill and intubated on mechanical ventilation in the ICU. Oxygenation remains suboptimal, with ABG revealing hypoxemia despite ventilatory support. Arterial blood gas shows pH 7.416, pCO2 43.7 mmHg, pO? 56.5 mmHg, HCO3 27.5 mmol/L, with arterial oxygen saturation of 86.2%, consistent with hypoxic respiratory failure. The patient is currently on FiO? 40%, which was increased to 45% today due to persistent hypoxemia. The patient was placed on a spontaneous breathing / CPAP trial today for pulmonary conditioning. He is tolerating pressure support of 8 cm H?O with PEEP of 8 cm H2O and FiO2 45%, without signs of respiratory distress. Plan is to continue CPAP trials as tolerated and return to full ventilatory support if fatigue develops. Neurologically, the patient remains off continuous sedation since October 08. Repeat head CT from yesterday demonstrates no acute intracranial abnormality, with findings of chronic bilateral parietal-occipital infarcts and chronic right cerebellar infarct. Neurology consultation remains pending. Renally, the patient underwent hemodialysis yesterday with 2 liters removed. 10/10/2025; the ICU. He is intubated and mechanically ventilated. Pressors and sedation have been discontinued. He is afebrile, normochromic, with stable blood pressure. Labs are stable renal function worsening pending hemodialysis today. Due to results of ABG, respiratory had to increase FiO2 from 30% to 50%, Dr. Rivera peep was to be increased to 8. Cultures from wound are growing VRE, which meropenem will be discontinued, new antibiotics will be started. Per nephrology, Cathflo was installed yesterday due to dysfunctional port on his dialysis catheter. On evaluation today, neurologic state has not changed, which a neuro consult has been placed and a new head CT will be ordered. 10/09/2025: Patient seen in the ICU. He is intubated and mechanically ventilated. Pressors and have been discontinued. He is afebrile, normocardic, with stable BP. Labs are stable. Follow up UA shows signs of UTI. Patient shows signs of blinking and cough and gag, however no tracking, withdrawal to pain or other meaningful movements noted. 10/08/2025: Patient seen in the ICU. He is intubated, sedated, and mechanically ventilated. Levophed has been discontinued, with BP remaining stable. Sedation is being scaled back as tolerated. He continues to desaturate when moved. During yesterday's dialysis, patient became unstable requiring increased dose of levophed. Labs show increase in WBCs, however still within normal range. Wound culture from sacral wound are growing gram negative rods, for which ceftriaxone will be discontinued and meropenem will be started. Today on evaluation, there is presence of gag reflex and some movement of his mouth. Still no response to painful stimulus. 10/07/2025: Patient seen in the ICU. He is intubated, sedated, and mechanically ventilated. Patient's blood pressure continues to be unstable, requiring continued pressor. He continues to desaturate when moved, requiring increasing oxygen supplementation. Labs are slightly improved. Patient continues to have sluggish pupils and no cough or gag reflex, Head CT shows presence of chornic changes with no acute intracranial abnormalities. We will continue to lower sedation to determine neurologic state. 10/06/2025: Patient seen in the ICU. He is intubated, sedated, and mechanically ventilated. Continues on levophed. Per nurse, it was reported overnight that patient continues to desaturate when moved. Labs are stable. Blood cultures are showing no growth at 72 hours. Patient is pending head CT for evaluation of possible anoxic injury. We will continue to follow. 10/05/2025: Patient seen in the ICU. He is intubated, sedated, and mechanically ventilated. Overnight levophed had to be resumed. Per nurse, he continues to present desaturations to the 70s when moved. Additionally the patient continues to reach peak pressures on the vent for which sedation was increased. Labs are stable. Lab was contacted today to confirm blood culture results as they did not appear on the EMR, per lab patient's blood cultures are not going any organisms at this time. Chest xray today shows interval improvement. The patient is scheduled for dialysis today. Due to lack of cough and gag and minimally reactive pupils in the context of a patient post cardiac arrest x3, there is concern of anoxic brain injury. Head CT has been ordered. 10/04/2025: Patient seen in the ICU. He is intubated, sedated, and mechanically ventilated. Currently off pressors. Per nurse, patient presented desaturations to the 50s when moved has elevated peak pressures on the ventilator. Labs are significant for and a decrease in hemoglobin, renal function is stable at this time, he will undergo dialysis tomorrow. Blood cultures are currently growing Gram-positive cocci in pairs, for which he is currently be covered with ceftriaxone. We will continue to monitor. 10/03/2025: Patient seen and examined at bedside, patient has completed hemodialysis this morning, decrease sedation today, patient was taken off levophed. Per nurse, the patient will desaturate to 50s when moved. He is afebrile, normocardic, with MAP within normal range. He underwent dialysis yesterday with removal of 3 L. Blood cultures are growing gram positive cocci in pairs/ chain and wound cultures are growing E. coli. Patient will remain on ceftriaxone . Objective vital signs Vital Sign Date Time Temp Pulse Resp B/P (MAP) Pulse Ox O2 Delivery O2 Flow Rate FiO2 10/11/25 12:28 89 24 139/68 (91) 99 40 10/11/25 10:00 Mechanical Ventilator+ 10/11/25 08:00 97.9 97.9 Total Intake and Output 10/10/25 10/10/25 10/11/25 15:00 23:00 07:00 Intake Total 283.0 ml 307.715 ml Output Total 150 ml 100 ml Balance 133.0 ml 207.715 ml medications Current Medications Medications Dose Ordered Sig/Esteban Route Start Time Stop Time Status Last Admin Dose Admin Diagnostic Test (Pha) 1 strip ACHS 09/26/25 22:00 10/11/25 11:59 1 STRIP Insulin Human Regular ACHS SC 09/26/25 22:00 10/11/25 12:00 2 UNITS Dextrose 50 ml UD PRN IV 09/26/25 21:15 Sodium Chloride 10 ml Q8HR IV 09/26/25 22:00 10/11/25 06:00 10 ML Sevelamer HCl 800 mg TIDWM PO 09/29/25 18:00 10/11/25 12:00 800 MG Amino Acid Protein 30 ml BID PO 09/30/25 22:00 10/11/25 08:40 30 ML Multivit/Ca Carb/ B Cmplx/FA/Prenat 1 tab DAILY PO 09/30/25 11:12 10/11/25 08:40 1 TAB Epinephrine HCl 250 ml @ 7.5 mls/hr Q24H IV 10/01/25 15:15 10/01/25 15:39 15 MLS/HR Norepinephrine Bitartrate 250 ml @ 3.75 mls/hr Q24H IV 10/01/25 15:15 10/06/25 09:44 3.75 MLS/HR Albumin Human 100 ml @ 100 mls/hr ANABELLA PRN IV 10/03/25 09:45 10/07/25 17:42 100 MLS/HR Aspirin 81 mg DAILY NG 10/05/25 10:00 10/11/25 08:40 81 MG Enteral Nutritional Formula 1,000 ml 40ML/HR GT 10/04/25 18:30 10/10/25 22:15 1,000 ML Famotidine 10 mg HS IV 10/07/25 22:00 10/10/25 22:10 10 MG Albuterol 2.5 mg Q6HR NEB 10/08/25 12:00 10/11/25 12:28 2.5 MG Ipratropium Benedict 0.5 mg Q6HR NEB 10/08/25 12:00 10/11/25 12:28 0.5 MG Artificial Tears 2 drop Q2HP PRN EACHEYE 10/08/25 14:30 Propofol 100 ml @ 3.966 mls/ hr Q24H IV 10/08/25 19:00 10/08/25 21:58 7.932 MLS/HR Linezolid 300 ml @ 150 mls/hr Q12H IV 10/10/25 16:15 10/11/25 04:00 150 MLS/HR Examination General: Patient is intubated, mechanically ventilated, non-reactive to painful stimulus HEENT: Normocephalic, atraumatic, 3 mm very sluggish, no EOM, right conjunctiva is edematous and red, pink moist mucous membrane, ET tube in place, orogastric tube in palce Respiratory/pulmonary: Bilateral chest expansion, decreased breath sounds bilaterally, wheezing in bilateral upper lobes Cardiovascular: Normal RRR Abdomen: Obese, Abdomen nondistended, normal bowel sounds, tense likely due to edema, no grimacing is observed on palpation, no palpable masses. Extremities: No deformities, bilateral lower extremity pedal edema 2+ in calves with scrotal swelling, large red circular ulcers present in right calf, presence of femoral CVC in right groin region, pulses are present, blisters present on left forearm Skin: Saccrococcyx 2.5x1.2x0.5cm, moist, open, full-thickness wound with moist red granulation tissue in the wound base and a mix of pale pink collagen scar tissue and dark brown adhered eschar material on the periwound area, there is minimal odor., darkened eschar lesions on his toes Neurological: hypoactive Gag and cough noted, patient blinks but does not track movements with his eyes, does not respond to verbal commands, no response to painful stimulus laboratory and microbiology Laboratory Tests 10/11/25 03:18 Test 10/11/25 03:18 Range/Units Serum Glucose 122 H 74-106 mg/dL Microbiology Date/Time Source Procedure Growth Status 10/08/25 22:28 Urine - Sal[place] Urine Culture - Preliminary Enterobacter cloacae Enterococcus faecalis - VRE Resulted 10/06/25 13:00 Sacrum Gram Stain - Final Resulted 10/06/25 13:00 Wound Culture - Preliminary Enterobacter cloacae Enterococcus faecalis - VRE Resulted 10/02/25 17:33 Blood Blood Culture - Final NO GROWTH AFTER 5 DAYS OF INCUBATION. Complete Problem List/Assessment/Plan Problem List/Assessment/Plan Assessment and Plan: Neurology # Sedated - Propofol 15 mcg/kg/hr - Fentanyl discontinued # Encephalomalacia - Head CT 09/26/2025: Bilateral cerebral encephalomalacia # Global cerebral volume loss - Head CT 09/26/2025: Mild global cerebral volume loss # epilepsy - Oxycarbazepine - held # Concern for anoxic brain injury - Head CT 10/06/25: No acute intracranial hemorrhage or mass effect.Age indeterminate small infarct involving the right cerebellum, favored to be chronic. If there is clinical concern for acute infarct, recommend MRI for further evaluation.Chronic bilateral parietal and occipital lobe infarcts. - Despite being off sedation for 48 hours, patient still has no meaningful neurologic response. . Neurology has been consulted #History of CVA in 201210/10/25 CT head negative for acute process. * Neurology consult pending Off sedation since 10/08 Cardiovascular #S/p Cardiac arrest with ROSC - 09/26/2025: Witnessed at dialysis center, bystanders started CPR and AED use, ROSC achieved before EMS arrived - 10/01/2025: Rhythm: Asystole, ROSC achieved after 7 minutes of CPR - 10/01/2025: Rhythm: Asystole, ROSC achieved after 11 minutes of CPR - 10/01/2025: Rhythm: Asystole, ROSC achieved after 2 minutes of CPR # Cardiogenic shock # Lactic acidosis likely due to above - Cultures are pending - Levophed 2 mcg - Epinephrine has been discontinued # Acute on chronic HFrEF - BNP 1232.11 - Echocardiogram 08/22/2025: LVEF of 20-25%, Severe LV dysfunction, moderate mitral regurgitation - Per cardiology: Diuretics with lasix, aspirin, nitroglycerin SL - Lasix 40 mg IV daily - S/p pacemaker placement # Bilateral pleural effusion - Chest xray 09/26/2025: The lungs demonstrate bilateral patchy airspace opacities. The pulmonary vasculature is prominent. Small bilateral pleural effusions. #Hypertension - Amlodipine held by nephrology Respiratory # Acute hypoxic respiratory failure # Ventilator -Intubated (10/01/2025) -On [facility] vent : VCAC Mode RR 18 TV 450ml, PEEP Of 8 and FiO2 of 4045% - 8.0 endotracheal tube, 24 at the lip - Cutlures from sputum: Normal orophargyngeal elpidio * Current Trial: CPAP/PS 8/8, FiO2 45% Plan: * Continue daily spontaneous breathing trials * Titrate FiO2 to maintain SpO2 >92% GI # Peptic ulcer prophylaxis -Pantoprazole 40 mg IV daily # Salas catheter draining clear urine Nephrology # ESRD on hemodialysis - Received dialysis without complication 09/29/2025 - S/p Cardiac arrest during dialysis 10/01/2025 - Per nephrology, the patient is scheduled for hemodialysis tomorrow - Strict Is and Os # Severe diabetic nephropathy #Acute metabolic alkalosis # Secondary hyperparathyroidism # Hypocalcemia - Monitor - Calcitrol # Hyperphosphatemia - Phosphate binders Infectious disease # Possible cellulitis secondary to lower extremity ulcers and sacral wound Complicated UTI - Ceftriaxone - Wound culture: E. coli - Wound care is on board - Sacral wound culture: VRE, Preliminary Organism 1 Enterobacter cloacae sesitive to gentamicin need an ID consult Organism 2 Enterococcus faecalis - VRE tx with linezolid - Urine culture: Organism 1 Enterobacter cloacae sesitive to gentamicin need an ID consult Organism 2 Enterococcus faecalis - VRE tx with linezolid -- Linezolid 600 mg IV q 12 hours #Septic vs Cardiogenic shock - Cultures: Negative at 72 hours - Ceftriaxone 1 g IV daily, discontinue Hem/onc #Thrombocytopenia, improved - Monitor #Normocytic anemia, likely due to chronic disease - Monitor Hand H - Per nephrology: Epogen 57670 SQ 3 weekly as tolerated Endocrine #Type 2 diabetes mellitus - SSI -Accu cheks MSK # Gout - Allopurinol 300 mg PO daily Skin # Circular ulcers present on right leg, present on admission # Possible Sacral Ulcer stage 2, present on admission - Wound culture: VRE - Meropenem 500 mg daily, discontinued - Linezolid 600 mg IV q 12 hours Marijuana use DVT prophylaxis: SCD PUD prophylaxis: Pantoprazole 40 mg IV daily Lines -R femoral central line: 10/01/2025 -Salas catheter 09/27/2025 -ET tube: 10/01/2025 - Tunneled catheter in right pectoral region Patient has right femoral line given the presence of right tunnel catheter in right pectoral region and pacemaker in left field. We will give the patient more time for sedation to wear off for accurate neurological evaluation. Drips during [facility] ventilation Fentanyl Discontinued Propofol: 15 Bicarbonate drip discontinued Levophed discontinued Critical care time 45 minutes excluding procedure. Code status discussed greater than 20 minutes: Full CODE STATUS. Sister, Claudia Burnett, was updated over the phone. Plan discussed with Dr Rivera Plan discussed with: Other (SISTER, RN) My Orders My Orders Orders - EFRAIN CARDONA RESIDENT Procedure Category Date Status Time Complete Blood Count LAB 10/12/25 Verified 04:00 Comprehensive LAB 10/12/25 Verified Metabolic Panel 04:00 Chest Xray 1 View XY 10/12/25 Verified 04:00 Magnesium LAB 10/12/25 Verified 04:00 Abg W/ Co-Ox RT 10/12/25 Verified 04:00 Phosphorus LAB 10/12/25 Verified 04:00 Cpap Trial For Am ORDERS 10/11/25 Verified 13:29 Dietary Evaluation Review Comments: Nutrition Recommendation: 1) CCHO 75gm + renal standard diet 2) Pro-stat 1 pk BID 3) Nephro-nellie 1 tab daily 4) Monitor PO intake, lab values, weight trend, and I/O Expected Outcomes/Goals: Wound to improve Intake to meet >75% estimated needs FU 3-5 days Visit Coding STANDARD RES Billing Provider: JEREMIAH RIVERA MD Date of Service if different f: Oct 11, 2025 EFRAIN CARDONA SMITH RESIDENT Oct 11, 2025 13:37
--- NOTE | 2025-10-11 18:02 | MEDREC ---
[facility] ASP Intervention Section I Assessment of apprpriate abx f: Skin & soft tissue infect (PLEASE CONSIDER ID CONSULTATION FOR ENTEROBACTER CLOACAE - MDRO ORGANISM) RINA MIGUEL PHARMACIST Oct 11, 2025 18:02
--- NOTE | 2025-10-11 19:17 | DVHINCON2 ---
Date of service: Oct 11, [address] Muro Reason for Consultation Status post three CPR 22 minutes total, minimally neuron nonresponsive off sedation History of Present Illness Mr. Zamora is a right-handed gentleman with a history of hypertension, diabetes, coronary artery disease, congestive heart failure, chronic kidney failure, chronic leg edema, obesity, stroke, RLS, he was brought to the [facility] on 09/26/2025 with a chief complaint of cardiopulmonary arrest. At that time, the patient is intubated, eyes open, but is questionable respond to verbal stimuli. The history is obtained from his sister, and his nurse I saw him on 01/18/2024 for seizure activity When he was going through hemodialysis on 10/26/25, he coded and CPR started right away, upon arrival on scene, the patient is found to be a and O x4, GCS 15, and was moaning in pain The patient was admitted to the telemetry, but he coded 3 times again on 10/01/25 (RN: Total 22 minutes), and has been intubated since. With appropriate treatment, the patient has been stabilized, but he was not improving as expected Code blue assessment, 10/01/2025 14:22,(patient receiving hemodialysis when hemodialysis nurse pressed code blue button for bradycardia and then asystole). Time of ROSC: 14:26 Code blue assessment, (absence of pulse, respiration), 10/01/2025 15:01, Time of ROSC: 15:12 (RN: Was coded 3 times, total 22 minutes) Since the age of 47, the patient has grand mal seizure, at home he is on Trileptal 450 mg b.i.d. He was admitted to the [facility] in 03/2020 13 for ALOC/nonresponsiveness, he said he at home, "MRI showed 11 strokes". At home he was on aspirin 81 mg daily, but no cholesterol medication (Statin caused arthritis) He also has polyneuropathy and restless leg syndrome, he was put on Lyrica 50 mg Q evening recently [phone], Urinalysis, 10/08/2025: WBC: 1809, urine leukocyte esterase: 3+ ABG, 10/01/2025: Respiratory acidosis WBC/HB/PLT/MCV, 10/11/2025: 7/8/166/97.4 BUN/CR, 10/11/2025: 57/6.09 GFR, 10/11/2025: 10 HGB A1c, 08/17/2025: 7.4 Liver function tests, 10/11/2025: Unremarkable TG/HDL/LDL/HDL, 01/14/2024: 77/162/103/48 Chest x-ray, 10/01/2025: 1. Endotracheal tube tip projects at the level of the tiburcio. Recommend retraction by 2 cm. 2. Remaining Lines and tubes as above. 3. Moderate multifocal bilateral pulmonary airspace disease and pulmonary vascular congestion Chest x-ray, 10/11/2025: Endotracheal tube, enteric catheter in satisfactory position. Right tunneled central venous catheter and left chest wall pacemaker, unchanged. CT head, 10/10/2025: 1. No acute intracranial abnormality. 2. 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 3. Likely chronic right cerebellar infarct. Past Medical History hypertension, diabetes, coronary artery disease, congestive heart failure, chronic kidney failure, chronic leg edema, obesity, stroke, RLS Past Surgical History Pacemaker insertion (2012, 2023) Family History: Cerebrovascular accident (CVA) G8 FATHER, Diabetes mellitus G8 MOTHER G8 FATHER, Family History Hypertension, diabetes, coronary artery disease, heart attack, Social History Smoker: Non-Smoker Alcohol: Denies ETOH Use Drugs: Denies Drug Use Lives In: Home Allergies: Coded Allergies: NO KNOWN ALLERGIES (Unverified , 01/14/24) Home Meds Active Scripts Yeast (S. Boulardii)(S. Cerevi (Florastor) 250 Mg Cap, 250 MG PO DAILY for 14 Days, #14 CAP Prov:YOBANI GOETZ RESIDENT 08/19/25 Vancomycin Hcl (Vancocin Hcl) 250 Mg Cap, 250 MG PO QID for 14 Days, #56 CAP Prov:YOBANI GOETZ RESIDENT 08/19/25 Reported Medications Pregabalin (Lyrica) 50 Mg Cap, 50 MG PO DAILY, CAP 09/28/25 Aspirin (Aspir-Low) 81 Mg Tab, 81 MG PO DAILY for 30 Days, MG 09/28/25 Gentamicin Sulfate (Gentamicin Sulfate) 0.1 % Cre, 1 APPLIC TOP TID for 30 Days, #30 08/17/25 Amlodipine Besylate (Amlodipine Besylate) 2.5 Mg Tab, 1 TAB PO DAILY for 90 Days, #90 08/17/25 Oxcarbazepine (Trileptal) 150 Mg Tab, 1 TAB PO BID for 90 Days, #180 08/17/25 Insulin Lispro (Admelog Solostar) 100 Unit/Ml Inj, UNITS SC UD for 30 Days, #15 08/17/25 Mupirocin (Pseudomonas Fluores (Mupirocin) 2 % Oin, 1 APPLIC TOP BID for 44 Days, #44 08/17/25 Allopurinol (Allopurinol) 300 Mg Tab, 1 TAB PO DAILY for 90 Days, #90 08/17/25 Furosemide (Furosemide) 40 Mg Tab, 2 TAB PO DAILY for 90 Days, #180 06/01/25 Finerenone (Kerendia) 10 Mg Tab, 1 TAB PO DAILY 01/15/24 Metoprolol Succinate (Metoprolol Succinate Er) 50 Mg Tab, 1 TAB PO DAILY for 90 Days, #90 01/14/24 Famotidine (PEPCID TABLET) 20 Mg Tb, 1 TAB PO BID 01/14/24 Metolazone (Metolazone) 5 Mg Tab, 1 TAB PO DAILY 01/14/24 Sodium Zirconium Cyclosilicate (Lokelma) 10 Gm Masood, 1 PKT PO DAILY for 30 Days, #30 01/14/24 Lisinopril (Lisinopril) 40 Mg Tab, 1 TAB PO DAILY 01/14/24 Gabapentin (Gabapentin) 300 Mg Cap, 1 CAP PO DAILY for 90 Days, #90 01/14/24 Review of Systems As above, the other systems are negative Vital Signs Vital Signs Date Time Temp Pulse Resp B/P (MAP) Pulse Ox O2 Delivery O2 Flow Rate FiO2 10/11/25 18:30 70 18 134/62 (86) 100 30 10/11/25 18:00 Mechanical Ventilator+ 10/11/25 16:00 98.7 98.7 Physical Exam The patient is well-nourished and well-developed with no distress. The patient is intubated HEENT: Normocephalic, neck supple, no carotid bruits Lungs: Clear to auscultation Cardiovascular: Regular rate and region, S1, S2, no murmurs Abdomen: Soft, nontender, normal bowel sounds Superficial skin lesions of different ages in the feet MENTAL STATUS: Eyes are open, nonresponsive to visual threat, questionably responsive to verbal stimuli CRANIAL NERVES: Pupils are equal, round and reactive. Possible conjugated eye movement, he blinks. No signs of facial weakness. There are gagging or coughing reflexes SENSATION: No responses to pain stimuli. MOTOR: Normal tone in the upper and lower extremity. Normal muscle bulk. No fasciculations. No spontaneous movement. REFLEXES: Deep tendon reflexes are symmetrical. No pathological reflexes. CEREBELLAR/COORDINATION: Deferred GAIT/STATION: deferred. Labs/Diagnostic Data Labs Test 10/11/25 17:42 10/11/25 07:58 10/11/25 03:18 10/10/25 07:50 Range/Units POC Glucose 134 H 70-106 mg/dl Blood Gas Specimen Type Arterial Blood Gas Sample Site Left radial Blood Gas Patient Temperature 37.0 Arterial Blood Date Drawn [id number] Arterial Blood pH 7.416 7.350-7.450 Arterial Blood Partial Pressure CO2 43.7 35.0-48.0 mmHg Arterial Blood Partial Pressure O2 56.5 L 83.0-108.0 mmHg Arterial Blood HCO3 27.5 21.0-28.0 mmol/L Arterial Blood Oxygen Saturation 86.2 L 94.0-98.0 % Arterial Blood Base Excess 2.6 -2.0-3.0 mmol/L Arterial Blood Oxyhemoglobin 85.5 L 94.0-98.0 % Arterial Blood Carboxyhemoglobin 0.5 0.5-1.5 % Arterial Blood Methemoglobin 0.3 0.0-1.5 % Arterial Blood Deoxyhemoglobin 13.7 H 0.0-5.0 % Rashad Test Modified Blood Gas Total Hemoglobin 8.20 L 13.5-17.5 g/dL Blood Gas Set Respiration Rate 18.0 Blood Gas Modality Vent - ac FiO2 % 40.0 Blood Gas Tidal Volume 450.0 Blood Gas PEEP or CPAP 8.0 White Blood Count 7.0 # 4.4-10.8 10^3/uL Red Blood Count 2.52 L 4.5-5.90 10^6/uL Hemoglobin 8.0 L 13.5-17.5 g/dL Hematocrit 24.6 L 41.0-53.0 % Mean Corpuscular Volume 97.4 80.0-100.0 fL Mean Corpuscular Hemoglobin 31.6 28.0-32.0 pg Mean Corpuscular Hemoglobin Concent 32.4 32.0-36.0 g/dL Red Cell Distribution Width 16.8 H 11.8-14.3 % Platelet Count 166 140-450 10^3/uL Mean Platelet Volume 8.8 6.9-10.8 fL Neutrophils (%) (Auto) 78.5 37.0-80.0 % Lymphocytes (%) (Auto) 9.9 L 10.0-50.0 % Monocytes (%) (Auto) 8.1 0.0-12.0 % Eosinophils (%) (Auto) 2.7 0.0-7.0 % Basophils (%) (Auto) 0.8 0.0-2.0 % Neutrophils # (Auto) 5.5 1.6-8.6 10 ^3/uL Lymphocytes # (Auto) 0.7 0.4-5.4 10 ^3/uL Monocytes # (Auto) 0.6 0-1.3 10 ^3/uL Eosinophils # (Auto) 0.2 0-0.8 10 ^3/uL Basophils # (Auto) 0.1 0-0.2 10 ^3/uL Nucleated Red Blood Cells 0.2 % Sodium Level 140 136-145 mmol/L Potassium Level 3.7 3.5-5.1 mmol/L Chloride Level 100 98-107 mmol/L Carbon Dioxide Level 29 20-31 mmol/L Anion Gap 11 5-15 Blood Urea Nitrogen 57 H 9-23 mg/dL Creatinine 6.09 H 0.700-1.30 mg/dL Glomerular Filtration Rate Calc 10 >90 mL/min BUN/Creatinine Ratio 9.4 L 10.0-20.0 Serum Glucose 122 H 74-106 mg/dL Calcium Level 8.8 8.7-10.4 mg/dL Phosphorus Level 5.3 H 2.4-5.1 mg/dL Magnesium Level 2.5 1.6-2.6 mg/dL Total Bilirubin 0.4 0.2-1.0 mg/dL Aspartate Amino Transferase (AST) 28 13-40 U/L Alanine Aminotransferase (ALT) 11 7-40 U/L Alkaline Phosphatase 169 H 46-116 U/L Total Protein 6.1 5.7-8.2 g/dL Albumin 3.0 L 3.2-4.8 g/dL Blood Gas Critical Value Read Back yes Blood Gas Notified baron Enriquez md Blood Gas Notified Time [id number] Blood Gas Notified By Respiratory Care Practitioner zandra martinez Test 10/08/25 22:28 10/08/25 07:10 10/03/25 02:32 10/01/25 17:35 Range/Units Urine Color Dark-brown Yellow Urine Clarity Ex.turbid Clear Urine pH 6.0 5.0-9.0 Urine Specific [place] 1.017 1.001-1.035 Urine Protein 2+ H Negative Urine Ketones Negative Negative Urine Blood 3+ H Negative /uL Urine Nitrite Negative Negative Urine Bilirubin Negative Negative Urine Urobilinogen Normal Negative mg/dL Urine Leukocyte Esterase 3+ Negative /uL Urine RBC 320 0 - 3 /hpf Urine WBC Clumps Present None Seen /hpf Urine Microscopic WBC 1809 H 0-3 /HPF Urine Squamous Epithelial Cells Many <5 /hpf Urine Amorphous Crystals Few None Seen /hpf Urine Bacteria Many H None Seen /hpf Urine Mucus Few None Seen Urine Glucose Normal Normal mg/dL Blood Gas Spontaneous Rate 22 Platelet Estimate Decreased Prothrombin Time 11.9 H 9.3-11.8 sec Prothrombin Time INR 1.14 0.9-1.15 Activated Partial Thromboplast Time 31.6 24.5-34.5 SEC B-Type Natriuretic Peptide 993.78 0-100 pg/mL Lactic Acid Level 1.9 0.4-2.0 mmol/L Test 10/01/25 15:14 09/28/25 04:33 09/26/25 16:33 Range/Units Differential Total Cells Counted 100.0 100 Neutrophils % (Manual) 62.0 37.0-80.0 Band Neutrophils % (Manual) 0 Lymphocytes % (Manual) 31.0 10.0-50.0 Monocytes % (Manual) 7.0 0-12 Eosinophils % (Manual) 0 0-7 Basophils % (Manual) 0 0.0-2.0 Metamyelocytes % (manual) 0 Myelocytes % (Manual) 0 Promyelocytes % (Manual) 0 Blast Cells % (Manual) 0 Reactive Lymphocytes 0 Anisocytosis (manual) Slight Macrocytosis Slight Vitamin D 25-Hydroxy 29.0 L 30.0-100 ng/mL Parathyroid Hormone (Intact) 361.3 H 18.4-80.1 pg/mL Hepatitis A IgM Antibody Negative Hepatitis B Surface Antigen Negative Negative Hepatitis B Core IgM Antibody Negative Negative Hepatitis C Antibody Negative Negative Troponin I High Sensitivity 23 </=54 ng/L Microbiology Date/Time Source Procedure Growth Status 10/08/25 22:28 Urine - [place] Urine Culture - Preliminary Enterobacter cloacae Enterococcus faecalis - VRE Resulted 10/06/25 13:00 Sacrum Gram Stain - Final Resulted 10/06/25 13:00 Wound Culture - Preliminary Enterobacter cloacae Enterococcus faecalis - VRE Resulted 10/02/25 17:33 Blood Blood Culture - Final NO GROWTH AFTER 5 DAYS OF INCUBATION. Complete Assessment Altered mental status Hypoxic encephalopathy Metabolic encephalopathy Cardiopulmonary arrest Status post CPR Chronic multiple strokes Grand mal seizure Diabetic polyneuropathy Restless leg syndrome Plan/Recommendation Monitoring Supportive treatment ICU care EEG Follow-up lab Stabilize vitals Refused support/vent management Aspirin 81 mg daily Keppra 500 mg b.i.d. IV for now, back to Trileptal 450 mg b.i.d. later Ativan for seizure breakthrough More recommendation per clinical course Prognosis: Poor Critical care time spent is 60 minutes Plan discussed with: Other PETER MUÑOZ MD Oct 11, 2025 19:16
--- NOTE | 2025-10-11 19:20 | DVHPN2 ---
Progress Note - Dictate Date Seen: Oct 11, 2025 Medical Necessity Reason Pt with a Central, PICC or Fol: No The following are medically ne: Central Line, [place] Catheter Subjective Patient was seen and evaluated in follow up in the ICU. Patient is intubated and sedated on ventilator. 40% FiO2. Patient's neurologic state has not changed. HGB 8, HCT 24.6, BUN 57, PUBLIC RELATIONS OFFICER 6.09. Chest x-ray is unchanged. vital signs Vital Sign Date Time Temp Pulse Resp B/P (MAP) Pulse Ox O2 Delivery O2 Flow Rate FiO2 10/11/25 13:36 18 100 Mechanical Ventilator+ 40 40 10/11/25 13:36 89 10/11/25 13:30 153/66 (95) 10/11/25 12:00 98.9 98.9 Total Intake and Output 10/10/25 10/10/25 10/11/25 15:00 23:00 07:00 Intake Total 283.0 ml 307.715 ml Output Total 150 ml 100 ml Balance 133.0 ml 207.715 ml medications Current Medications Medications Dose Ordered Sig/Esteban Route Start Time Stop Time Status Last Admin Dose Admin Diagnostic Test (Pha) 1 strip ACHS 09/26/25 22:00 10/11/25 11:59 1 STRIP Insulin Human Regular ACHS SC 09/26/25 22:00 10/11/25 12:00 2 UNITS Dextrose 50 ml UD PRN IV 09/26/25 21:15 Sodium Chloride 10 ml Q8HR IV 09/26/25 22:00 10/11/25 06:00 10 ML Sevelamer HCl 800 mg TIDWM PO 09/29/25 18:00 10/11/25 12:00 800 MG Amino Acid Protein 30 ml BID PO 09/30/25 22:00 10/11/25 08:40 30 ML Multivit/Ca Carb/ B Cmplx/FA/Prenat 1 tab DAILY PO 09/30/25 11:12 10/11/25 08:40 1 TAB Epinephrine HCl 250 ml @ 7.5 mls/hr Q24H IV 10/01/25 15:15 10/01/25 15:39 15 MLS/HR Norepinephrine Bitartrate 250 ml @ 3.75 mls/hr Q24H IV 10/01/25 15:15 10/06/25 09:44 3.75 MLS/HR Albumin Human 100 ml @ 100 mls/hr ANABELLA PRN IV 10/03/25 09:45 10/07/25 17:42 100 MLS/HR Aspirin 81 mg DAILY NG 10/05/25 10:00 10/11/25 08:40 81 MG Enteral Nutritional Formula 1,000 ml 40ML/HR GT 10/04/25 18:30 10/10/25 22:15 1,000 ML Famotidine 10 mg HS IV 10/07/25 22:00 10/10/25 22:10 10 MG Albuterol 2.5 mg Q6HR NEB 10/08/25 12:00 10/11/25 12:28 2.5 MG Ipratropium [place] 0.5 mg Q6HR NEB 10/08/25 12:00 10/11/25 12:28 0.5 MG Artificial Tears 2 drop Q2HP PRN EACHEYE 10/08/25 14:30 Propofol 100 ml @ 3.966 mls/ hr Q24H IV 10/08/25 19:00 10/08/25 21:58 7.932 MLS/HR Linezolid 300 ml @ 150 mls/hr Q12H IV 10/10/25 16:15 10/11/25 04:00 150 MLS/HR objective GENERAL: Ill appearing, intubated on ventilator. Morbidly obese. EYES: PERRL, EOMI. Anicteric. HENT: Moist mucous membranes. LUNGS: Decreased breath sounds. CARDIOVASCULAR: Regular rate and rhythm. ABDOMEN: Soft, non-tender and non-distended. EXTREMITIES: No edema. SKIN: Warm, dry. laboratory and microbiology Laboratory Tests 10/11/25 03:18 Test 10/11/25 03:18 Range/Units Serum Glucose 122 H 74-106 mg/dL Problem List Acute syncopal episode. Status post cardiac arrest x3. ESRD on hemodialysis. Hypertension. Peripheral neuropathy. Severe peripheral artery disease. Acute on chronic congestive heart failure exacerbation. History of CVA. Anemia of chronic disease. Diabetes with severe diabetic nephropathy. History of pacemaker. Morbidly obese. Decompensated heart failure with ejection fraction less than 25%. Encephalomalacia. Hyperphosphatemia. Hyperparathyroidism. Assessment/Plan Continued all current supportive medical care. Aspirin. IV antibiotics as ordered. Morphine and [place] for pain management. Vasopressors for hemodynamic support. Additional plan as per the hospital course. Critical care time of 45 minutes provided to include time spent evaluation of patient at bedside, when appropriate patient/family education for diagnosis, treatment plan, review of pertinent medical information and discussion of care with specialty providers and PCP. Mechanical ventilator parameters, treatment and adjustments have personally been reviewed by me and treatment plan by receiving checker has also been reviewed. Dietary Evaluation Review Comments: Nutrition Recommendation: 1) CCHO 75gm + renal standard diet 2) Pro-stat 1 pk BID 3) Nephro-nellie 1 tab daily 4) Monitor PO intake, lab values, weight trend, and I/O Expected Outcomes/Goals: Wound to improve Intake to meet >75% estimated needs FU 3-5 days Plan discussed with: Other MATTHEW CIFUENTES MD Oct 11, 2025 14:21
[2025-10-11] MEDS ORDERED: LORazepam 2MG/ML-1ML VIAL IV PRN (21:00)
[2025-10-11] MEDS: levETIRAcetam 500 mg/100ml 100 ML IV SCH (22:08)
--- NOTE | 2025-10-11 23:43 | DVHPN2 ---
[facility] DOS: 10/11/2025 Patient seen and examined at bedside. Intubated on mechanical ventilator. Overnight events reviewed. Reviewed: Care Plan, H&P, Labs, Medications, Previous Orders, Radiology Changes from previous H/P or p: No Changes Eyes: No Pain, No Vision change, No Conjunctivae inflammation, No Eyelid inflammation, No Other, No Redness ENT: No Ear pain, No Ear discharge, No Nose pain, No Nose discharge, No Nose congestion, No Mouth pain, No Mouth swelling, No Throat pain, No Throat swelling, No Other Cardiovascular: Chest Pain; No Palpitations, No Orthopnea, No Paroxysmal Noc. Dyspnea, No Edema, No Lt Headedness, No Other Respiratory: No Cough, No Dry, No Shortness of breath, No SOB with excertion, No Wheezing, No Hemoptysis, No Pleuritic Pain, No Sputum, No Other Gastrointestinal: No Nausea, No Vomiting, No Abdominal Pain, No Diarrhea, No Constipation, No Melena, No Hematochezia, No Other Genitourinary: No Dysuria, No Frequency, No Incontinence, No Hematuria, No Retention; Other (On hemodialysis) Musculoskeletal: No other, No neck pain, No shoulder pain, No arm pain, No back pain, No hand pain, No leg pain, No foot pain Skin: No Rash, No Lesions, No Jaundice, No Bruising, No Other Objective Vitals Vital Signs Date Time Temp Pulse Resp B/P (MAP) Pulse Ox O2 Delivery O2 Flow Rate FiO2 10/11/25 21:50 65 18 131/62 (85) 98 30 10/11/25 20:00 Mechanical Ventilator+ 10/11/25 20:00 97.9 97.9 Intake/Output Intake and Output 10/11/25 07:00 Intake Total 590.715 ml Output Total 250 ml Balance 340.715 ml Intake Oral 250 ml IV Total 95.715 ml Tube Feeding 245 ml Output Urine Total 250 ml Exam Gen.: Patient lying in bed in medical ICU. Intubated on mechanical ventilator. Head: Normocephalic, atraumatic. Eyes: PERRLA. Ears: Normal external anatomy. Throat: Endotracheal tube and orogastric tube in place. Neck: Supple, trachea midline. Chest: Transmitted breath sounds bilaterally. Decreased air entry bilaterally. No wheezing. Bibasilar crackles. Cardiovascular: Positive S1, positive S2. Regular rate and rhythm. Abdomen: Positive bowel sounds in all 4 quadrants. Soft, nontender, nondistended. : Salas in place. Normal external genitalia. Rectal: Deferred. Skin: Warm, dry. Intact. Extremities: 2+ radial pulses bilaterally. No lower extremity edema. Neuro: Off sedation Medications Current Medications Medications Dose Ordered Sig/Esteban Route Start Time Stop Time Status Last Admin Dose Admin Diagnostic Test (Pha) 1 strip ACHS 09/26/25 22:00 10/11/25 23:12 1 STRIP Insulin Human Regular ACHS SC 09/26/25 22:00 10/11/25 18:23 2 UNITS Dextrose 50 ml UD PRN IV 09/26/25 21:15 Sodium Chloride 10 ml Q8HR IV 09/26/25 22:00 10/11/25 22:13 10 ML Sevelamer HCl 800 mg TIDWM PO 09/29/25 18:00 10/11/25 18:23 800 MG Amino Acid Protein 30 ml BID PO 09/30/25 22:00 10/11/25 23:05 30 ML Multivit/Ca Carb/ B Cmplx/FA/Prenat 1 tab DAILY PO 09/30/25 11:12 10/11/25 08:40 1 TAB Epinephrine HCl 250 ml @ 7.5 mls/hr Q24H IV 10/01/25 15:15 10/01/25 15:39 15 MLS/HR Norepinephrine Bitartrate 250 ml @ 3.75 mls/hr Q24H IV 10/01/25 15:15 10/06/25 09:44 3.75 MLS/HR Albumin Human 100 ml @ 100 mls/hr ANABELLA PRN IV 10/03/25 09:45 10/07/25 17:42 100 MLS/HR Aspirin 81 mg DAILY NG 10/05/25 10:00 10/11/25 08:40 81 MG Enteral Nutritional Formula 1,000 ml 40ML/HR GT 10/04/25 18:30 10/10/25 22:15 1,000 ML Famotidine 10 mg HS IV 10/07/25 22:00 10/11/25 22:12 10 MG Albuterol 2.5 mg Q6HR NEB 10/08/25 12:00 10/11/25 18:30 2.5 MG Ipratropium [place] 0.5 mg Q6HR NEB 10/08/25 12:00 10/11/25 18:29 0.5 MG Artificial Tears 2 drop Q2HP PRN EACHEYE 10/08/25 14:30 Propofol 100 ml @ 3.966 mls/ hr Q24H IV 10/08/25 19:00 10/08/25 21:58 7.932 MLS/HR Linezolid 300 ml @ 150 mls/hr Q12H IV 10/10/25 16:15 10/11/25 16:29 150 MLS/HR Levetiracetam 100 ml @ 400 mls/hr BID IV 10/11/25 22:00 10/11/25 22:08 400 MLS/HR Lorazepam 1 mg Q5MINP PRN IV 10/11/25 21:00 Laboratory Results Laboratory Tests 10/11/25 03:18 Chemistry Test 10/11/25 03:18 Albumin 3.0 g/dL (3.2-4.8) L Calcium Level 8.8 mg/dL (8.7-10.4) Magnesium Level 2.5 mg/dL (1.6-2.6) Phosphorus Level 5.3 mg/dL (2.4-5.1) H Total Protein 6.1 g/dL (5.7-8.2) LFT Test 10/11/25 03:18 Alanine Aminotransferase (ALT) 11 U/L (7-40) Alkaline Phosphatase 169 U/L (46-116) H Aspartate Amino Transferase (AST) 28 U/L (13-40) Total Bilirubin 0.4 mg/dL (0.2-1.0) Urinalysis Test 10/08/25 22:28 Urine Color Dark-brown (Yellow) Urine Clarity Ex.turbid (Clear) Urine pH 6.0 (5.0-9.0) Urine Specific [place] 1.017 (1.001-1.035) Urine Protein 2+ (Negative) H Urine Ketones Negative (Negative) Urine Blood 3+ /uL (Negative) H Urine Nitrite Negative (Negative) Urine Bilirubin Negative (Negative) Urine Urobilinogen Normal mg/dL (Negative) Urine Leukocyte Esterase 3+ /uL (Negative) Urine RBC 320 /hpf (0 - 3) Urine WBC Clumps Present /hpf (None Seen) Urine Microscopic WBC 1809 /HPF (0-3) H Urine Squamous Epithelial Cells Many /hpf (<5) Urine Amorphous Crystals Few /hpf (None Seen) Urine Bacteria Many /hpf (None Seen) H Urine Mucus Few (None Seen) Urine Glucose Normal mg/dL (Normal) Blood Gas Results Test 10/11/25 07:58 Arterial Blood pH 7.416 (7.350-7.450) FiO2 % 40.0 Microbiology Microbiology Date/Time Source Procedure Growth Status 10/08/25 22:28 Urine - [place] Urine Culture - Preliminary Enterobacter cloacae Enterococcus faecalis - VRE Resulted 10/06/25 13:00 Sacrum Gram Stain - Final Resulted 10/06/25 13:00 Wound Culture - Preliminary Enterobacter cloacae Enterococcus faecalis - VRE Resulted 10/02/25 17:33 Blood Blood Culture - Final NO GROWTH AFTER 5 DAYS OF INCUBATION. Complete Assessment/Plan Assessment/Plan Impression: Acute hypoxic respiratory failure On mechanical ventilator Lactic acidosis S/p cardiac arrest Acute on chronic CHF ESRD, on hemodialysis DM type II Shock Morbid obesity Cellulitis Sacral ulcer Events: Remains on vent support On AC mode; RR 18, VT 450, PEEP 8, FiO2 40% Off sedation since 10/08/25 Hemoglobin stable Awaiting for mentation to improve. CT head reviewed, reveals no acute intracranial abnormality. 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 Likely chronic right cerebellar infarct. Off pressors, monitor hemodynamics. Patient noted to have increased pressor requirements during HD. Hemodialysis per Nephrology - S/p HD yesterday ABG reviewed, compensated Continue abx for cellulitis On meropenem Sputum cx revealed normal oropharyngeal elpidio. Hemodialysis per Nephrology Follow up Nephrology recs Monitor renal function Salas was exchanged 10/09. Tube feeds for nutritional support Wound care Placed on SBT for exercise CPAP with PS 8, PEEP 8 Will await for mentation to improve - exercise for now Labs and imaging reviewed. Rest of plan as noted below. Plan: s/p intubation on mechanical ventilator. On AC mode; RR 18, VT 450, PEEP 8, FiO2 40% Titrate FIO2 to keep O2 saturation above 90%. VAP bundle. Daily ABG and CXR while intubated Pressors for hemodynamic support Titrate to keep mean arterial pressure greater than 65 mmHg. Continue antibiotics. Follow up cultures. HD per Nephrology Diurese to euvolemia Monitor renal function Monitor electrolytes. Supplement as necessary. Monitor ins and outs. Recommend judicious use of fluids due to CHF. Wound care Monitor lactic acid. Recommend diet and lifestyle modifications for weight reduction Obesity complicates all care GI prophylaxis. DVT prophylaxis. Prognosis: Poor given patient's multiple co-morbidities. Condition: Critical Rest of plan per hospitalist and other consultants. A total of 35 minutes of critical care time was spent reviewing the patient record, examining the patient, making a diagnostic and therapeutic plan, discussing this plan with the medical personnel, following up on diagnostic studies and following the patient for clinical stability excluding any and all procedures. At least 50% of this time was spent in direct, [id number] contact. Thank you, Dr. Cantu, for allowing me to participate in this patient's care. Further recommendations will depend on the patient's clinical course. Please do not hesitate to contact me if you have any questions or concerns. This medical document was created using an electronic medical record system with [employer] dictation system. Although these documentations are being carefully reviewed, there may still be some phonetic and typographical changes. The errors are purely typographical, due to imperfection on the software program, and do not reflect any compromise in the patient's medical care. Plan discussed with: Other (JOYCE Headley) My Orders Orders - JEREMIAH GAMEZ MD Procedure Category Date Status Time Abg W/ Co-Ox RT 10/11/25 Logged 06:00 Cpap Trial For Am ORDERS 10/11/25 Transmitted 12:57 Visit Coding Pulmonary Billing Provider: JEREMIAH GAMEZ MD Date of Service if different f: Oct 11, 2025 Common Visit Codes: 66082-[id number] INP/OBS CARE(HIGH), 26166-[id number] CARE 30-74 MIN JEREMIAH GAMEZ MD Oct 11, 2025 23:43
[2025-10-12] VITALS (118 sets, daily range): BP systolic 112–153; BP diastolic 34–94; PULSE 61–79; RESP 11–23; TEMP 97.8–98.7; O2SAT 96–100
[2025-10-12 03:32] LABS: Hematocrit 25.3 % (41.0-53.0); Hemoglobin 8.1 g/dL (13.5-17.5); Mean Corpuscular Hemoglobin 31.5 pg (28.0-32.0); Mean Corpuscular Volume 97.9 fL (80.0-100.0); Nucleated Red Blood Cells % 0.0 %
[2025-10-12 03:51] LABS: Alanine Aminotransferase 12 U/L (7-40); Anion Gap 11 (5-15); BUN/Creatinine Ratio 8.8 (10.0-20.0); Carbon Dioxide 29 mmol/L (20-31); Chloride 100 mmol/L (98-107); Magnesium 2.5 mg/dL (1.6-2.6); Potassium 3.9 mmol/L (3.5-5.1); Sodium 140 mmol/L (136-145); Total Protein 6.3 g/dL (5.7-8.2)
[2025-10-12 03:54] LABS: Albumin 3.0 g/dL (3.2-4.8); Alkaline Phosphatase 182 U/L (46-116); Bilirubin, Total 0.3 mg/dL (0.2-1.0); Blood Urea Nitrogen 62 mg/dL (9-23); Calcium 8.5 mg/dL (8.7-10.4); Glucose 136 mg/dL (74-106)
--- NOTE | 2025-10-12 05:28 | DVH ---
CHEST RADIOGRAPH Indication: Acute hypoxic respiratory failure Technique: Single frontal view of the chest was obtained COMPARISON: XY CHEST PORTABLE on DOS: 10/11/25, XY CHEST XRAY 1 VIEW on DOS: 10/10/25, XY CHEST PORTABLE on DOS: 10/09/25, XY CHEST XRAY 1 VIEW on DOS: 10/09/25, XY CHEST XRAY 1 VIEW on DOS: 10/08/25 FINDINGS: Lines and Tubes: Endotracheal tube, enteric catheter, right tunneled central venous catheter and left chest pacemaker in satisfactory position. Lungs: Unchanged pulmonary vascular congestion /multifocal airspace disease. Pleura: No effusion.No pneumothorax. Cardiomediastinal contours: Cardiomegaly. Bones: Unremarkable IMPRESSION: Lines and tubes in satisfactory position. No significant interval change.
[2025-10-12 09:07] LABS: Base Excess 1.4 mmol/L (-2.0-3.0)
[2025-10-12] MEDS: SODIUM CHL 0.9% 1000 ML BAG XX ONE (10:45)
--- NOTE | 2025-10-12 11:07 | DVHPN2 ---
Progress Note - Dictate Date Seen: Oct 12, 2025 Has the PT tested + for MRSA If YES, has PT been informed?: No Medical Necessity Reason Pt with a Central, PICC or Fol: No The following are medically ne: Central Line, Salas Catheter Subjective Mr. Zamora is a right-handed gentleman with a history of hypertension, diabetes, coronary artery disease, congestive heart failure, chronic kidney failure, chronic leg edema, obesity, stroke, RLS, he was brought to the [facility] on 09/26/2025 with a chief complaint of cardiopulmonary arrest. I saw him on 01/18/2024 for seizure activity I have seen and examined the patient, I have talked to his nurse and the medical staff He is going through hemodialysis today Eyes are closed, but is responsive to light touch, he has a little bit conjugated eye movement and blinking on waking up, but he does not track or follow verbal commands Urinalysis, 10/08/2025: WBC: 1809, urine leukocyte esterase: 3+ ABG, 10/01/2025: Respiratory acidosis WBC/HB/PLT/MCV, 10/11/2025: 7/8/166/97.4 BUN/CR, 10/11/2025: 57/6.09 GFR, 10/11/2025: 10 HGB A1c, 08/17/2025: 7.4 Liver function tests, 10/11/2025: Unremarkable TG/HDL/LDL/HDL, 01/14/2024: 77/162/103/48 Chest x-ray, 10/01/2025: 1. Endotracheal tube tip projects at the level of the tiburcio. Recommend retraction by 2 cm. 2. Remaining Lines and tubes as above. 3. Moderate multifocal bilateral pulmonary airspace disease and pulmonary vascular congestion Chest x-ray, 10/11/2025: Endotracheal tube, enteric catheter in satisfactory position. Right tunneled central venous catheter and left chest wall pacemaker, unchanged. CT head, 10/10/2025: 1. No acute intracranial abnormality. 2. 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 3. Likely chronic right cerebellar infarct vital signs Vital Sign Date Time Temp Pulse Resp B/P (MAP) Pulse Ox O2 Delivery O2 Flow Rate FiO2 10/12/25 10:30 71 23 129/53 (78) 100 10/12/25 09:36 50 10/12/25 09:30 Mechanical Ventilator+ 10/12/25 08:00 98.1 98.1 Total Intake and Output 10/11/25 10/11/25 10/12/25 15:00 23:00 07:00 Intake Total 62.795 ml 858.940 ml 534.3 ml Output Total 100 ml 125 ml Balance 62.795 ml 758.940 ml 409.3 ml medications Current Medications Medications Dose Ordered Sig/Esteban Route Start Time Stop Time Status Last Admin Dose Admin Diagnostic Test (Pha) 1 strip ACHS 09/26/25 22:00 10/12/25 06:38 1 STRIP Insulin Human Regular ACHS SC 09/26/25 22:00 10/12/25 06:38 2 UNITS Dextrose 50 ml UD PRN IV 09/26/25 21:15 Sodium Chloride 10 ml Q8HR IV 09/26/25 22:00 10/12/25 06:36 10 ML Sevelamer HCl 800 mg TIDWM PO 09/29/25 18:00 10/12/25 08:00 800 MG Amino Acid Protein 30 ml BID PO 09/30/25 22:00 10/11/25 23:05 30 ML Multivit/Ca Carb/ B Cmplx/FA/Prenat 1 tab DAILY PO 09/30/25 11:12 10/11/25 08:40 1 TAB Epinephrine HCl 250 ml @ 7.5 mls/hr Q24H IV 10/01/25 15:15 10/01/25 15:39 15 MLS/HR Norepinephrine Bitartrate 250 ml @ 3.75 mls/hr Q24H IV 10/01/25 15:15 10/06/25 09:44 3.75 MLS/HR Albumin Human 100 ml @ 100 mls/hr ANABELLA PRN IV 10/03/25 09:45 10/07/25 17:42 100 MLS/HR Aspirin 81 mg DAILY NG 10/05/25 10:00 10/11/25 08:40 81 MG Enteral Nutritional Formula 1,000 ml 40ML/HR GT 10/04/25 18:30 10/10/25 22:15 1,000 ML Famotidine 10 mg HS IV 10/07/25 22:00 10/11/25 22:12 10 MG Albuterol 2.5 mg Q6HR NEB 10/08/25 12:00 10/12/25 05:58 2.5 MG Ipratropium [place] 0.5 mg Q6HR NEB 10/08/25 12:00 10/12/25 05:58 0.5 MG Artificial Tears 2 drop Q2HP PRN EACHEYE 10/08/25 14:30 Propofol 100 ml @ 3.966 mls/ hr Q24H IV 10/08/25 19:00 10/08/25 21:58 7.932 MLS/HR Linezolid 300 ml @ 150 mls/hr Q12H IV 10/10/25 16:15 10/12/25 05:21 150 MLS/HR Levetiracetam 100 ml @ 400 mls/hr BID IV 10/11/25 22:00 10/11/25 22:08 400 MLS/HR Lorazepam 1 mg Q5MINP PRN IV 10/11/25 21:00 objective The patient is well-nourished and well-developed with no distress. The patient is intubated Superficial skin lesions of different ages in the feet MENTAL STATUS: Subjective CRANIAL NERVES: Pupils are equal, round and reactive. Possible conjugated eye movement, he blinks. No signs of facial weakness. There are gagging or coughing reflexes SENSATION: No responses to pain stimuli. MOTOR: Normal tone in the upper and lower extremity. Normal muscle bulk. No fasciculations. No spontaneous movement. REFLEXES: Deep tendon reflexes are symmetrical. No pathological reflexes. CEREBELLAR/COORDINATION: Deferred GAIT/STATION: deferred. laboratory and microbiology Laboratory Tests 10/12/25 02:50 Test 10/12/25 02:50 Range/Units Serum Glucose 136 H 74-106 mg/dL Problem List Altered mental status Hypoxic encephalopathy Metabolic encephalopathy Cardiopulmonary arrest Status post CPR Chronic multiple strokes Grand mal seizure Diabetic polyneuropathy Restless leg syndrome Assessment/Plan Monitoring Supportive treatment ICU care EEG Follow-up lab Stabilize vitals Refused support/vent management Aspirin 81 mg daily Keppra 500 mg b.i.d. IV for now, back to Trileptal 450 mg b.i.d. later Ativan for seizure breakthrough More recommendation per clinical course This medical document was created using an electronic medical record system with [employer] dictation system. Although this document has been carefully reviewed, there may still be some phonetic and typographical errors. These areas are purely typographical due to imperfections of the software programs, and do not reflect any compromise in the patient's medical care. Prognosis poor Dietary Evaluation Review Comments: Nutrition Recommendation: 1) CCHO 75gm + renal standard diet 2) Pro-stat 1 pk BID 3) Nephro-nellie 1 tab daily 4) Monitor PO intake, lab values, weight trend, and I/O Expected Outcomes/Goals: Wound to improve Intake to meet >75% estimated needs FU 3-5 days Plan discussed with: Other Critical Care Time(min): 35 PETER MUÑOZ MD Oct 12, 2025 11:07
--- NOTE | 2025-10-12 12:04 | DVHPN2 ---
Progress Note Date Seen: Oct 12, 2025 Has the PT tested + for MRSA If YES, has PT been informed?: No Medical Necessity Reason Pt with a Central, PICC or Fol: Yes The following are medically ne: Central Line, [place] Catheter Reason for rosales catheter: Strict I&O Subjective Review of Systems: Deferred Objective vital signs Vital Sign Date Time Temp Pulse Resp B/P (MAP) Pulse Ox O2 Delivery O2 Flow Rate FiO2 10/12/25 10:30 71 23 129/53 (78) 100 10/12/25 09:36 50 10/12/25 09:30 Mechanical Ventilator+ 10/12/25 08:00 98.1 98.1 Total Intake and Output 10/11/25 10/11/25 10/12/25 14:59 22:59 06:59 Intake Total 66.100 ml 855.650 ml 544.2 ml Output Total 100 ml 125 ml Balance 66.100 ml 755.650 ml 419.2 ml medications Current Medications Medications Dose Ordered Sig/Esteban Route Start Time Stop Time Status Last Admin Dose Admin Diagnostic Test (Pha) 1 strip ACHS 09/26/25 22:00 10/12/25 06:38 1 STRIP Insulin Human Regular ACHS SC 09/26/25 22:00 10/12/25 06:38 2 UNITS Dextrose 50 ml UD PRN IV 09/26/25 21:15 Sodium Chloride 10 ml Q8HR IV 09/26/25 22:00 10/12/25 06:36 10 ML Sevelamer HCl 800 mg TIDWM PO 09/29/25 18:00 10/12/25 08:00 800 MG Amino Acid Protein 30 ml BID PO 09/30/25 22:00 10/11/25 23:05 30 ML Multivit/Ca Carb/ B Cmplx/FA/Prenat 1 tab DAILY PO 09/30/25 11:12 10/11/25 08:40 1 TAB Epinephrine HCl 250 ml @ 7.5 mls/hr Q24H IV 10/01/25 15:15 10/01/25 15:39 15 MLS/HR Norepinephrine Bitartrate 250 ml @ 3.75 mls/hr Q24H IV 10/01/25 15:15 10/06/25 09:44 3.75 MLS/HR Albumin Human 100 ml @ 100 mls/hr ANABELLA PRN IV 10/03/25 09:45 10/07/25 17:42 100 MLS/HR Aspirin 81 mg DAILY NG 10/05/25 10:00 10/11/25 08:40 81 MG Enteral Nutritional Formula 1,000 ml 40ML/HR GT 10/04/25 18:30 10/10/25 22:15 1,000 ML Famotidine 10 mg HS IV 10/07/25 22:00 10/11/25 22:12 10 MG Albuterol 2.5 mg Q6HR NEB 10/08/25 12:00 10/12/25 05:58 2.5 MG Ipratropium [place] 0.5 mg Q6HR NEB 10/08/25 12:00 10/12/25 05:58 0.5 MG Artificial Tears 2 drop Q2HP PRN EACHEYE 10/08/25 14:30 Propofol 100 ml @ 3.966 mls/ hr Q24H IV 10/08/25 19:00 10/08/25 21:58 7.932 MLS/HR Linezolid 300 ml @ 150 mls/hr Q12H IV 10/10/25 16:15 10/12/25 05:21 150 MLS/HR Levetiracetam 100 ml @ 400 mls/hr BID IV 10/11/25 22:00 10/11/25 22:08 400 MLS/HR Lorazepam 1 mg Q5MINP PRN IV 10/11/25 21:00 Examination: GENERAL:Abnormal, LUNGS:Abnormal laboratory and microbiology Laboratory Tests 10/12/25 02:50 Test 10/12/25 02:50 Range/Units Serum Glucose 136 H 74-106 mg/dL Microbiology Date/Time Source Procedure Growth Status 10/08/25 22:28 Urine - [place] Urine Culture - Preliminary Enterobacter cloacae Enterococcus faecalis - VRE Resulted 10/06/25 13:00 Sacrum Gram Stain - Final Resulted 10/06/25 13:00 Wound Culture - Preliminary Enterobacter cloacae Enterococcus faecalis - VRE Resulted 10/02/25 17:33 Blood Blood Culture - Final NO GROWTH AFTER 5 DAYS OF INCUBATION. Complete Problem List/Assessment/Plan Problem List/Assessment/Plan End-stage renal disease on hemodialysis Acute respiratory failure, patient intubated on ventilator Status post cardiac arrest x3 Decompensated heart failure with ejection fraction less than 25% Diabetes with severe diabetic nephropathy Severe peripheral artery disease Anemia of chronic kidney disease Encephalomalacia Hyperphosphatemia Hyperparathyroidism, secondary Hd today fluid removal as tolerated avoid hypotension rest of care per critical care and primary Plan discussed with: Other (NURSE) My Orders My Orders Orders - VAISHALI SAMAYOA MD Procedure Category Date Status Time Hemodialysis Orders ORDERS 10/12/25 Transmitted 08:04 Dietary Evaluation Review Comments: Nutrition Recommendation: 1) CCHO 75gm + renal standard diet 2) Pro-stat 1 pk BID 3) Nephro-nellie 1 tab daily 4) Monitor PO intake, lab values, weight trend, and I/O Expected Outcomes/Goals: Wound to improve Intake to meet >75% estimated needs FU 3-5 days VAISHALI SAMAYOA MD Oct 12, 2025 12:04
[2025-10-12] MEDS ORDERED: EPOETIN ALFA-EPBX 10,000 UNIT/1ML VIAL SC SCH (12:15)
[2025-10-12] MEDS: levETIRAcetam 1000 mg/100ml 100 ML IV ONE (13:35)
[2025-10-12] MEDS ORDERED: TOBRAMYCIN PER PHARMACY 0 ML IV SCH (16:15)
[2025-10-12] MEDS ORDERED: GENTAMICIN PER PHARMACY 0 ML IV SCH (18:15)
--- NOTE | 2025-10-12 18:15 | DVHPNRES ---
Progress Note Date Seen: Oct 13, 2025 Resident Creating Document: YOBANI GOETZ RESIDENT Has the PT tested + for MRSA If YES, has PT been informed?: No Medical Necessity Reason Pt with a Central, PICC or Fol: Yes The following are medically ne: Central Line, Rosales Catheter Reason for rosales catheter: Strict I&O Subjective Review of Systems Mr. Zamora is a 59 year old male with PMHx of ESRD with recent initiation of dialysis approximately 2 weeks ago , HFrEF with pacemaker placement, CVA in 2012, type 2 diabetes mellitus, gout, and hypertension, who presented to [facility] due to witnessed cardiopulmonary arrest during dialysis on 09/26/2025. At the time of evaluation the patient is sedated and intubated, majority of history is taken from previous medical record and his sister, Claudia Burnett. Per record, the patient became unresponsive during hemodialysis, CPR was intiated by bystanders and AED was used, by the time EMS arrived on scene the patient was found A&Ox4, GCS15, and moaning in pain. On evaluation in the ED, patient was complaining of dyspnea and chest wall pain. He was afebrile, normocardic with pacedc rhythm, hypertensive, and saturating adequately on room air. EKG showed paced rhythm with widened QTc. Initial labs are significant for normocytic anemia, hypokalemia, creatinine 6.85, BUN 43, and BNP 1232.11. Troponins were negative. UA without alteration. Chest xray significant for lungs with bilateral patchy airspace opacities, prominent pulmonary vasculature, with small bilateral pleural effusions. Head CT shows bilateral cerebral encephalomalacia and mild global cerebral volume loss without intracranial hemorrhage or mass effect. The patient was started on IV diuresis and admitted for further work up and managment. He was evaluated by cardiology who continued diuresis. The patient was evaluated by nephrology who state that given diminished cardiac function likely patient cannot tolerate large ultrafiltration goals. He was scheduled for further dialysis, having undergone dialysis on 09/28/2025 without issue. He was receiving dialysis on 10/01/2025 when he became bradycardic and went into asystole. Code blue was called and CPR was intiated with ROSC achieved after 7 minutes of CPR. He was transferred to the ICU and he entered asystole two more times in a span of 15 minutes a with ROSC achieved after 11 minutes of CPR and at 2 minutes of CPR respectively. He was intubated and started on pressors, sedation, antibiotics, and bicarbonate drip. On initial evaluation in the ICU, the patient is intubated, sedated, and mechanically ventilated, on levophed 2 mcg, pupils are reactive, no response to painful stimulus, cough and gag are present. Labs are significant for normocytic anemia, worsening thrombocytopenia, and worsening renal function. ABG is significant for metabolic alkalosis. Most recent chest xray shows worsening congestion. Past medical history: ESRD on dialysis, HFrEF, CVA in 2012, Type 2 diabetes mellitus, and hypertension Past surgical history: Pacemaker placement and replacement, Right femoral fracture repair Allergies: Denies Social: Per sister, the patient currently smokes marijuana, denies other drug use. Patient currently lives with his mother and his brother. Home meds: Famotidine, Allopurinol, pregabalin, furosemide, sevelamer, metoprolol, and lokelma : Patient seen and examined at bedside. Started patient on gentamicin per pharmacy. Unable to complete MRI brain as pacemaker leads not compatible with MRI per mygolatronic. Infectious Disease consult. Decreased FiO2. Objective vital signs Vital Sign Date Time Temp Pulse Resp B/P (MAP) Pulse Ox O2 Delivery O2 Flow Rate FiO2 10/12/25 17:55 71 10/12/25 17:47 18 97 Mechanical Ventilator+ 40 40 10/12/25 17:45 137/56 (83) 10/12/25 16:00 98.7 98.7 Total Intake and Output 10/11/25 10/11/25 10/12/25 15:00 23:00 07:00 Intake Total 62.795 ml 858.940 ml 547.52 ml Output Total 100 ml 125 ml Balance 62.795 ml 758.940 ml 422.52 ml medications Current Medications Medications Dose Ordered Sig/Esteban Route Start Time Stop Time Status Last Admin Dose Admin Diagnostic Test (Pha) 1 strip ACHS 09/26/25 22:00 10/12/25 17:25 1 STRIP Insulin Human Regular ACHS SC 09/26/25 22:00 10/12/25 17:36 2 UNITS Dextrose 50 ml UD PRN IV 09/26/25 21:15 Sodium Chloride 10 ml Q8HR IV 09/26/25 22:00 10/12/25 13:53 10 ML Sevelamer HCl 800 mg TIDWM PO 09/29/25 18:00 10/12/25 17:37 800 MG Amino Acid Protein 30 ml BID PO 09/30/25 22:00 10/12/25 10:00 30 ML Multivit/Ca Carb/ B Cmplx/FA/Prenat 1 tab DAILY PO 09/30/25 11:12 10/12/25 12:19 1 TAB Epinephrine HCl 250 ml @ 7.5 mls/hr Q24H IV 10/01/25 15:15 10/01/25 15:39 15 MLS/HR Norepinephrine Bitartrate 250 ml @ 3.75 mls/hr Q24H IV 10/01/25 15:15 10/06/25 09:44 3.75 MLS/HR Albumin Human 100 ml @ 100 mls/hr ANABELLA PRN IV 10/03/25 09:45 10/07/25 17:42 100 MLS/HR Aspirin 81 mg DAILY NG 10/05/25 10:00 10/12/25 13:35 81 MG Enteral Nutritional Formula 1,000 ml 40ML/HR GT 10/04/25 18:30 10/10/25 22:15 1,000 ML Famotidine 10 mg HS IV 10/07/25 22:00 10/11/25 22:12 10 MG Albuterol 2.5 mg Q6HR NEB 10/08/25 12:00 10/12/25 12:11 2.5 MG Ipratropium [place] 0.5 mg Q6HR NEB 10/08/25 12:00 10/12/25 12:11 0.5 MG Artificial Tears 2 drop Q2HP PRN EACHEYE 10/08/25 14:30 Propofol 100 ml @ 3.966 mls/ hr Q24H IV 10/08/25 19:00 10/08/25 21:58 7.932 MLS/HR Linezolid 300 ml @ 150 mls/hr Q12H IV 10/10/25 16:15 10/12/25 16:15 150 MLS/HR Levetiracetam 100 ml @ 400 mls/hr BID IV 10/11/25 22:00 10/12/25 13:50 400 MLS/HR Lorazepam 1 mg Q5MINP PRN IV 10/11/25 21:00 Epoetin Mohan-epbx 10,000 unit MWF@2100 SC 10/12/25 21:00 Tobramycin Sulfate 0 ml @ 0 mls/hr PER PHARMACY IV 10/12/25 16:15 Examination General: Patient is intubated, mechanically ventilated, non-reactive to painful stimulus HEENT: Normocephalic, atraumatic, 3 mm very sluggish, no EOM, right conjunctiva is edematous and red, pink moist mucous membrane, ET tube in place, orogastric tube in palce Respiratory/pulmonary: Bilateral chest expansion, decreased breath sounds bilaterally, wheezing in bilateral upper lobes Cardiovascular: Normal RRR Abdomen: Obese, Abdomen nondistended, normal bowel sounds, tense likely due to edema, no grimacing is observed on palpation, no palpable masses. Extremities: No deformities, bilateral lower extremity pedal edema 2+ in calves with scrotal swelling, large red circular ulcers present in right calf, presence of femoral CVC in right groin region, pulses are present, blisters present on left forearm Skin: Saccrococcyx 2.5x1.2x0.5cm, moist, open, full-thickness wound with moist red granulation tissue in the wound base and a mix of pale pink collagen scar tissue and dark brown adhered eschar material on the periwound area, there is minimal odor., darkened eschar lesions on his toes Neurological: hypoactive Gag and cough noted, patient blinks but does not track movements with his eyes, does not respond to verbal commands, no response to painful stimulus laboratory and microbiology Laboratory Tests 10/12/25 02:50 Test 10/12/25 02:50 Range/Units Serum Glucose 136 H 74-106 mg/dL Microbiology Date/Time Source Procedure Growth Status 10/08/25 22:28 Urine - Rosales [place] Urine Culture - Final Complete 10/06/25 13:00 Sacrum Gram Stain - Final Resulted 10/06/25 13:00 Wound Culture - Preliminary Enterobacter cloacae Enterococcus faecalis - VRE Resulted 10/02/25 17:33 Blood Blood Culture - Final NO GROWTH AFTER 5 DAYS OF INCUBATION. Complete Labs and/or images reviewed: Labs reviewed by me, Image(s) reviewed by me Problem List/Assessment/Plan Problem List/Assessment/Plan Neurology # Sedated - Precedex at 0.3 mg # Encephalomalacia - Head CT 09/26/2025: Bilateral cerebral encephalomalacia # Global cerebral volume loss - Head CT 09/26/2025: Mild global cerebral volume loss # epilepsy - Oxycarbazepine - held # Concern for anoxic brain injury - Head CT 10/06/25: No acute intracranial hemorrhage or mass effect.Age indeterminate small infarct involving the right cerebellum, favored to be chronic. If there is clinical concern for acute infarct, recommend MRI for further evaluation.Chronic bilateral parietal and occipital lobe infarcts. - Despite being off sedation for 48 hours, patient still has no meaningful neurologic response. . Neurology has been consulted - unable to obtain MRI as per mygolatronic pacemaker leads are older generation and not MRI compatible. #History of CVA in 201210/10/25 CT head negative for acute process. * Neurology consult pending Off sedation since 10/08 Cardiovascular #S/p Cardiac arrest with ROSC - 09/26/2025: Witnessed at dialysis center, bystanders started CPR and AED use, ROSC achieved before EMS arrived - 10/01/2025: Rhythm: Asystole, ROSC achieved after 7 minutes of CPR - 10/01/2025: Rhythm: Asystole, ROSC achieved after 11 minutes of CPR - 10/01/2025: Rhythm: Asystole, ROSC achieved after 2 minutes of CPR # Cardiogenic shock # Lactic acidosis likely due to above - Cultures are pending - Levophed 2 mcg - Epinephrine has been discontinued # Acute on chronic HFrEF - BNP 1232.11 - Echocardiogram 08/22/2025: LVEF of 20-25%, Severe LV dysfunction, moderate mitral regurgitation - Per cardiology: Diuretics with lasix, aspirin, nitroglycerin SL - Lasix 40 mg IV daily - S/p pacemaker placement # Bilateral pleural effusion - Chest xray 10/12/2025: No significant interval change. #Hypertension - Amlodipine held by nephrology Respiratory # Acute hypoxic hypercapnic respiratory failure # Ventilator -Intubated (10/01/2025) -On [facility] vent : VCAC Mode RR 18 TV 450ml, PEEP Of 8 and FiO2 of 4045% - 8.0 endotracheal tube, 24 at the lip - Cutlures from sputum: Normal orophargyngeal elpidio * Current Trial: CPAP/PS 06/05, FiO2 45% Plan: * Continue daily spontaneous breathing trials * Titrate FiO2 to maintain SpO2 >92% GI # Peptic ulcer prophylaxis -Pantoprazole 40 mg IV daily # Rosales catheter draining clear urine Nephrology # ESRD on hemodialysis - Received dialysis without complication and without pressor support on 10/13/2025 with 2 L removed - Strict Is and Os # Severe diabetic nephropathy #Acute metabolic alkalosis # Secondary hyperparathyroidism # Hypocalcemia - Monitor - Calcitrol # Hyperphosphatemia - Phosphate binders Infectious disease # 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 # Possible cellulitis secondary to lower extremity ulcers, , leg wound growing E coli # Complicated UTI - IV linezolid - started patient on IV gentamicin per pharmacy - consulted infectious disease #Septic vs Cardiogenic shock - blood Cultures: Negative at 72 hours - Ceftriaxone 1 g IV daily, now discontinue Hem/onc #Thrombocytopenia, improved - Monitor #Normocytic anemia, likely due to chronic disease - Monitor Hand H - Per nephrology: Epogen 33836 SQ 3 weekly as tolerated Endocrine #Type 2 diabetes mellitus - SSI -Accu cheks MSK # Gout - Allopurinol 300 mg PO daily Skin # Circular ulcers present on right leg, present on admission # Possible Sacral Ulcer stage 2, present on admission - Wound culture: VRE - Meropenem 500 mg daily, discontinued - Linezolid 600 mg IV q 12 hours Marijuana use DVT prophylaxis: SCD PUD prophylaxis: Pantoprazole 40 mg IV daily Lines -R femoral central line: 10/01/2025 -Rosales catheter 10/09/2025 -ET tube: 10/01/2025 - Tunneled catheter in right pectoral region Patient has right femoral line given the presence of right tunnel catheter in right pectoral region and pacemaker in left field. We will give the patient more time for sedation to wear off for accurate neurological evaluation. Drips during [facility] ventilation Fentanyl Discontinued Propofol: 15 Bicarbonate drip discontinued Levophed discontinued Critical care time 63 minutes excluding procedure. Code status discussed greater than 20 minutes: Full CODE STATUS. Family at bedside explained about the condition of the patient Plan discussed with Dr. Bautista Plan discussed with: Other (RN) My Orders My Orders Orders - YOBANI GOETZ RESIDENT Procedure Category Date Status Time * Infectious [place]- CONS 10/12/25 Transmitted [facility] Huston 15:42 Tobramycin Per [facility] 10/12/25 In Process Pharmacy 16:15 Tobramycin Per [facility] 10/12/25 In Process Pharmacy Protoc 16:46 Tobramycin, Random LAB 10/14/25 Verified 04:00 Tobramycin Inj [facility]A 10/12/25 In Process 18:00 Complete Blood Count LAB 10/13/25 Verified 04:00 Chest Portable XY 10/13/25 Verified 04:00 Abg W/ Co-Ox RT 10/13/25 Transmitted 04:00 Gentamicin Per [facility]A 10/12/25 Verified Pharmacy 18:15 Dietary Evaluation Review Comments: Nutrition Recommendation: 1) CCHO 75gm + renal standard diet 2) Pro-stat 1 pk BID 3) Nephro-nellie 1 tab daily 4) Monitor PO intake, lab values, weight trend, and I/O Expected Outcomes/Goals: Wound to improve Intake to meet >75% estimated needs FU 3-5 days Visit Coding STANDARD RES Billing Provider: ANANT BAUTISTA MD Date of Service if different f: Oct 12, 2025 Common Visit Codes: 41269-[id number] CARE 30-74 MIN Date of Service: Oct 12, 2025 Billing Provider: ANANT BAUTISTA MD Common Visit Codes: 01660-[id number] CARE 30-74 MIN YOBANI GOETZ Oct 12, 2025 18:15 ANANT BAUTISTA MD Oct 13, 2025 16:12
[2025-10-12] MEDS: GENTAMICIN SULFATE 180 MG in D5W 5% 100 ML IV ONE (19:02)
[2025-10-12] MEDS: EPOETIN ALFA-EPBX 10,000 UNIT/1ML VIAL SC SCH (21:11)
--- NOTE | 2025-10-12 22:51 | DVHINCON2 ---
Date of service: Oct 12, 2025 Family History: Cerebrovascular accident (CVA) G8 FATHER, Diabetes mellitus G8 MOTHER G8 FATHER, Allergies: Coded Allergies: NO KNOWN ALLERGIES (Unverified , 01/14/24) Home Meds Active Scripts Yeast (S. Boulardii)(S. Cerevi (Florastor) 250 Mg Cap, 250 MG PO DAILY for 14 Days, #14 [facility]25 Vancomycin Hcl (Vancocin Hcl) 250 Mg Cap, 250 MG PO QID for 14 Days, #56 [facility] 08/[facility]/25 Reported Medications Pregabalin (Lyrica) 50 Mg Cap, 50 MG PO DAILY, CAP 09/28/25 Aspirin (Aspir-Low) 81 Mg Tab, 81 MG PO DAILY for 30 Days, MG 09/28/25 Gentamicin Sulfate (Gentamicin Sulfate) 0.1 % Cre, 1 APPLIC TOP TID for 30 Days, #30 08/17/25 Amlodipine Besylate (Amlodipine Besylate) 2.5 Mg Tab, 1 TAB PO DAILY for 90 Days, #90 08/17/25 Oxcarbazepine (Trileptal) 150 Mg Tab, 1 TAB PO BID for 90 Days, #180 08/17/25 Insulin Lispro (Admelog Solostar) 100 Unit/Ml Inj, UNITS SC UD for 30 Days, #15 08/17/25 Mupirocin (Pseudomonas Fluores (Mupirocin) 2 % Oin, 1 APPLIC TOP BID for 44 Days, #44 08/17/25 Allopurinol (Allopurinol) 300 Mg Tab, 1 TAB PO DAILY for 90 Days, #90 08/17/25 Furosemide (Furosemide) 40 Mg Tab, 2 TAB PO DAILY for 90 Days, #180 06/01/25 Finerenone (Kerendia) 10 Mg Tab, 1 TAB PO DAILY 01/15/24 Metoprolol Succinate (Metoprolol Succinate Er) 50 Mg Tab, 1 TAB PO DAILY for 90 Days, #90 01/14/24 Famotidine (PEPCID TABLET) 20 Mg Tb, 1 TAB PO BID 01/14/24 Metolazone (Metolazone) 5 Mg Tab, 1 TAB PO DAILY 01/14/24 Sodium Zirconium Cyclosilicate (Lokelma) 10 Gm Masood, 1 PKT PO DAILY for 30 Days, #30 01/14/24 Lisinopril (Lisinopril) 40 Mg Tab, 1 TAB PO DAILY 01/14/24 Gabapentin (Gabapentin) 300 Mg Cap, 1 CAP PO DAILY for 90 Days, #90 01/14/24 Current Medications Current Medications Medications (Trade) Dose Ordered Sig/Esteban Route PRN Reason Start Time Stop Time Status Last Admin Epoetin Mohan-epbx (Retacrit) 10,000 unit MWF SC 10/12/25 12:15 10/12/25 13:07 DC Epoetin Mohan-epbx (Retacrit) 10,000 unit MWF@2100 SC 10/12/25 21:00 10/12/25 21:11 Tobramycin Sulfate 0 ml @ 0 mls/hr PER PHARMACY IV 10/12/25 16:15 10/12/25 18:14 DC Gentamicin Sulfate 0 ml @ 0 mls/hr PER PHARMACY IV 10/12/25 18:15 Vital Signs Vital Signs Date Time Temp Pulse Resp B/P (MAP) Pulse Ox O2 Delivery O2 Flow Rate FiO2 10/12/25 22:03 74 21 134/66 (88) 100 40 10/12/25 20:00 98.4 98.4 10/12/25 17:47 Mechanical Ventilator+ Labs/Diagnostic Data Labs Test 10/12/25 21:45 10/12/25 08:55 10/12/25 02:50 10/08/25 22:28 Range/Units POC Glucose 157 H 70-106 mg/dl Blood Gas Specimen Type Arterial Blood Gas Sample Site Left radial Blood Gas Patient Temperature 37.0 Arterial Blood Date Drawn [id number] Arterial Blood pH 7.394 7.350-7.450 Arterial Blood Partial Pressure CO2 44.6 35.0-48.0 mmHg Arterial Blood Partial Pressure O2 48.1 *L 83.0-108.0 mmHg Arterial Blood HCO3 26.6 21.0-28.0 mmol/L Arterial Blood Oxygen Saturation 81.5 *L 94.0-98.0 % Arterial Blood Base Excess 1.4 -2.0-3.0 mmol/L Arterial Blood Oxyhemoglobin 80.2 L 94.0-98.0 % Arterial Blood Carboxyhemoglobin 1.2 0.5-1.5 % Arterial Blood Methemoglobin 0.4 0.0-1.5 % Arterial Blood Deoxyhemoglobin 18.2 H 0.0-5.0 % Rashad Test Modified Blood Gas Total Hemoglobin 12.70 L 13.5-17.5 g/dL Blood Gas Set Respiration Rate 18.0 Blood Gas Modality Vent - ac FiO2 % 30.0 Blood Gas Tidal Volume 450.0 Blood Gas PEEP or CPAP 8.0 Blood Gas Critical Value Read Back Yes Blood Gas Notified Whom Rickey blackman md Blood Gas Notified Time [id number] Blood Gas Notified By Isaiah meyers White Blood Count 6.5 4.4-10.8 10^3/uL Red Blood Count 2.58 L 4.5-5.90 10^6/uL Hemoglobin 8.1 L 13.5-17.5 g/dL Hematocrit 25.3 L 41.0-53.0 % Mean Corpuscular Volume 97.9 80.0-100.0 fL Mean Corpuscular Hemoglobin 31.5 28.0-32.0 pg Mean Corpuscular Hemoglobin Concent 32.2 32.0-36.0 g/dL Red Cell Distribution Width 17.0 H 11.8-14.3 % Platelet Count 199 140-450 10^3/uL Mean Platelet Volume 8.8 6.9-10.8 fL Neutrophils (%) (Auto) 74.7 37.0-80.0 % Lymphocytes (%) (Auto) 12.9 10.0-50.0 % Monocytes (%) (Auto) 9.6 0.0-12.0 % Eosinophils (%) (Auto) 2.0 0.0-7.0 % Basophils (%) (Auto) 0.8 0.0-2.0 % Neutrophils # (Auto) 4.9 1.6-8.6 10 ^3/uL Lymphocytes # (Auto) 0.8 0.4-5.4 10 ^3/uL Monocytes # (Auto) 0.6 0-1.3 10 ^3/uL Eosinophils # (Auto) 0.1 0-0.8 10 ^3/uL Basophils # (Auto) 0.1 0-0.2 10 ^3/uL Nucleated Red Blood Cells 0.0 % Sodium Level 140 136-145 mmol/L Potassium Level 3.9 3.5-5.1 mmol/L Chloride Level 100 98-107 mmol/L Carbon Dioxide Level 29 20-31 mmol/L Anion Gap 11 5-15 Blood Urea Nitrogen 62 H 9-23 mg/dL Creatinine 7.01 H 0.700-1.30 mg/dL Glomerular Filtration Rate Calc 8 >90 mL/min BUN/Creatinine Ratio 8.8 L 10.0-20.0 Serum Glucose 136 H 74-106 mg/dL Calcium Level 8.5 L 8.7-10.4 mg/dL Phosphorus Level 5.6 H 2.4-5.1 mg/dL Magnesium Level 2.5 1.6-2.6 mg/dL Total Bilirubin 0.3 0.2-1.0 mg/dL Aspartate Amino Transferase (AST) 31 13-40 U/L Alanine Aminotransferase (ALT) 12 7-40 U/L Alkaline Phosphatase 182 H 46-116 U/L Total Protein 6.3 5.7-8.2 g/dL Albumin 3.0 L 3.2-4.8 g/dL Urine Color Dark-brown Yellow Urine Clarity Ex.turbid Clear Urine pH 6.0 5.0-9.0 Urine Specific [place] 1.017 1.001-1.035 Urine Protein 2+ H Negative Urine Ketones Negative Negative Urine Blood 3+ H Negative /uL Urine Nitrite Negative Negative Urine Bilirubin Negative Negative Urine Urobilinogen Normal Negative mg/dL Urine Leukocyte Esterase 3+ Negative /uL Urine RBC 320 0 - 3 /hpf Urine WBC Clumps Present None Seen /hpf Urine Microscopic WBC 1809 H 0-3 /HPF Urine Squamous Epithelial Cells Many <5 /hpf Urine Amorphous Crystals Few None Seen /hpf Urine Bacteria Many H None Seen /hpf Urine Mucus Few None Seen Urine Glucose Normal Normal mg/dL Test 10/08/25 07:10 10/03/25 02:32 10/01/25 17:35 10/01/25 15:14 Range/Units Blood Gas Spontaneous Rate 22 Platelet Estimate Decreased Prothrombin Time 11.9 H 9.3-11.8 sec Prothrombin Time INR 1.14 0.9-1.15 Activated Partial Thromboplast Time 31.6 24.5-34.5 SEC B-Type Natriuretic Peptide 993.78 0-100 pg/mL Lactic Acid Level 1.9 0.4-2.0 mmol/L Differential Total Cells Counted 100.0 100 Neutrophils % (Manual) 62.0 37.0-80.0 Band Neutrophils % (Manual) 0 Lymphocytes % (Manual) 31.0 10.0-50.0 Monocytes % (Manual) 7.0 0-12 Eosinophils % (Manual) 0 0-7 Basophils % (Manual) 0 0.0-2.0 Metamyelocytes % (manual) 0 Myelocytes % (Manual) 0 Promyelocytes % (Manual) 0 Blast Cells % (Manual) 0 Reactive Lymphocytes 0 Anisocytosis (manual) Slight Macrocytosis Slight Test 09/28/25 04:33 09/26/25 16:33 Range/Units Vitamin D 25-Hydroxy 29.0 L 30.0-100 ng/mL Parathyroid Hormone (Intact) 361.3 H 18.4-80.1 pg/mL Hepatitis A IgM Antibody Negative Hepatitis B Surface Antigen Negative Negative Hepatitis B Core IgM Antibody Negative Negative Hepatitis C Antibody Negative Negative Troponin I High Sensitivity 23 </=54 ng/L Microbiology Date/Time Source Procedure Growth Status 10/08/25 22:28 Urine - [place] Urine Culture - Final Complete 10/06/25 13:00 Sacrum Gram Stain - Final Resulted 10/06/25 13:00 Wound Culture - Preliminary Enterobacter cloacae Enterococcus faecalis - VRE Resulted 10/02/25 17:33 Blood Blood Culture - Final NO GROWTH AFTER 5 DAYS OF INCUBATION. Complete Problems(with codes): (1) Cardiac arrest (2) Cardiac asystole (3) Wound cellulitis (4) Fever (5) End stage renal disease on dialysis (6) Electrolyte imbalance (7) Generalized weakness (8) Acute on chronic systolic congestive heart failure Plan/Recommendation ASSESSMENT AND PLAN: ID Problem List: \-- [id number] cardiac arrest at dialysis center with bystander CPR and AED shock \-- In-hospital bradycardia/asystolic arrest during hemodialysis on 10/01 with prolonged CPR and defibrillation \-- Acute hypoxic respiratory failure requiring mechanical ventilation \-- Multifocal pulmonary airspace disease and pulmonary vascular congestion (pulmonary edema/contusions) after multiple CPR events and underlying CHF \-- CKD on chronic hemodialysis (reported schedule Sunday//Sunday) \-- CHF \-- Diabetes mellitus \-- Hypertension \-- History of stroke \-- Pacemaker in situ (triple-lead on CXR) \-- Chronic thrombocytopenia (platelets progressively decreased from ~115K on admission to 60K on 10/01; most recent ~89K) \-- Sacrococcygeal pressure ulcer (full-thickness, granulating, no drainage/odor) \-- Right anterior ulcer (granulating, no drainage/edema) \-- Multiple left plantar blood-filled blisters and calluses (no deep tissue involvement) \-- Scattered skin ulcers/eschar likely related to peripheral arterial disease and pressure injuries \-- Wound culture (10/06) with VRE and carbapenem-resistant Enterobacter (CRE), currently felt to represent colonization \-- Pneumonia vs pulmonary edema/contusions treated empirically with ceftriaxone clindamycin, later meropenem \-- Current antibiotic regimen: linezolid + gentamicin per pharmacy at the time of this consult Assessment: Theo Zamora is a 59-year-old male with CKD on chronic hemodialysis (), CHF, history of stroke, diabetes, and hypertension who initially had a syncopal episode and cardiac arrest at the dialysis center. He received bystander CPR and AED shock; on EMS arrival he was awake, alert, and oriented x4 (GCS 15) but had chest wall pain. Initial evaluation showed leukocyte count 7.5, hemoglobin 9.8, platelets 115K, sodium 142, BUN 43, creatinine 6.85. CT head revealed no acute intracranial hemorrhage or mass effect but did show chronic encephalomalacia and chronic microvascular ischemic changes. CXR showed a triple-lead pacemaker and bilateral airspace opacities and pleural effusions without fractures, interpreted as pulmonary contusions and congestion. He was admitted to telemetry and subsequently developed a second arrest on 10/01 while on hemodialysis, with bradycardia progressing to asystole. He received chest compressions for 14 minutes and defibrillation at approximately 14 minutes 22 seconds. Post-code lactic acid was 5.7, improving to 1.9 after return of circulation and fluid resuscitation. Labs on 10/01: WBC 7.2, hemoglobin 8.6, platelets 60K, sodium 140, potassium 4.6, BUN 51, creatinine 7.46, glucose 100, liver enzymes unremarkable. He required intubation and mechanical ventilation (FiO2 50%, PEEP 5 initially), vasopressor support with norepinephrine (Levophed), and empiric antibiotics (ceftriaxone for pneumonia coverage; clind amycin for pneumonia and skin injuries). Respiratory cultures on 10/01 showed normal respiratory elpidio; cultures on 10/02 showed no growth to date. CXR and KUB showed colonic distension with NG tube in the stomach, and moderate multifocal bilateral pulmonary airspace disease with pulmonary vascular congestion. Vasopressor requirements gradually improved and were discontinued; he has now been off pressors for approximately 5 days. FiO2 has improved to 30% with PEEP 5, though CXR continues to show unchanging m ultifocal airspace disease. On exam he has multiple skin injuries, including a sacrococcygeal full-thickness ulcer (2.5 x 0.2 cm) with healthy granulation tissue and no odor or significant drainage, and a right anterior ulcer (3 x 4 cm) with healthy granulation and epithelium, no drainage, exudate, or surrounding swelling/edema. Eschar is noted on toes and ankle in areas of prior ulcers/ischemic disease. There are multiple left plantar foot blood-filled blisters and calluses; de-roofed blisters reveal intact underlying skin with no deeper edema or induration. These injuries are thought to be related to peripheral arterial disease, pressure, and thrombocytopenia-related skin fragility. Wound care is being provided. A wound culture on 10/06 grew VRE and a multidrug-resistant Enterobacter (carbapenem-resistant), sensitive only to gentamicin. Current antibiotics include linezolid and gentamicin per pharmacy. Clinically, there are no signs of cellulitis at the wound sites, no diarrhea, no reports of new drainage or local changes, and no ongoing hemodynamic instability or other signs of sepsis. The VRE and Enterobacter are felt to represent colonization of chronic wounds rather than active invasive infection at this time. Given his advanced CKD on dialysis and chronic thrombocytopenia (platelets <100K), the risks of gentamicin (nephrotoxicity/ototoxicity in a dialysis patient) and linezolid (worsening thrombocytopenia) likely outweigh the benefits in the absence of clear evidence of active systemic infection. Plan: 1\. Wound colonization with VRE and CRE Enterobacter (no current evidence of invasive infection): \-- Wound culture (10/06) with VRE and carbapenem-resistant Enterobacter likely represents colonization of chronic pressure/ischemic ulcers rather than active infection based on current exam (granulation tissue, lack of drainage, lack of surrounding erythema/edema, no systemic signs of sepsis). \-- Recommend stop all systemic antibiotics at this time, including linezolid and gentamicin, given: Lack of clinical evidence for active invasive infection High risk of ototoxicity/nephrotoxicity from gentamicin in a dialysis patient Risk of worsening thrombocytopenia with linezolid in a patient with platelets <100K \-- Continue meticulous local wound care as per wound care nursing and primary team. \-- Monitor wounds closely for any new drainage, malodor, increased pain, eryt ramon, warmth, or expansion, which would raise concern for superimposed infection. 2\. Acute hypoxic respiratory failure; multifocal airspace disease (pulmonary edema/contusions; possible pneumonia): \-- Currently mechanically ventilated with FiO2 ~30% and PEEP 5; off vasopressors for ~5 days. \-- Continue ventilator weaning as tolerated per ICU/primary team. \-- Continue aggressive volume management and diuresis in concert with hemodialysis to address pulmonary edema as seen on CXR. \-- At present, respiratory cultures show only normal elpidio or no growth; there are no clear signs of active, progressive pneumonia distinct from pulmonary edema/contusion. \-- If clinical concern for sepsis or worsening pneumonia arises (e.g., new fever, leukocytosis, rising vasopressor requirement, worsening oxygenation, hypotension, new purulent secretions): Obtain repeat sputum culture from a tracheal aspirate or tracheal wash. Reinitiate empiric therapy for hospital-acquired pneumonia. Options discussed include: Piperacillin-tazobactam (Zosyn) or cefepime for Pseudomonas and broad gram-negative coverage. At this time, VRE and carbapenem-resistant Enterobacter from the sacral wound are not felt to be significantly contributing to the pulmonary process or overall clinical picture, and targeted therapy against these organisms is not recommended absent evidence of invasive disease. 3\. Chronic kidney disease on hemodialysis; risk of electrolyte-related arrhythmia and arrest: \-- Continue scheduled hemodialysis (reported Sunday//Sunday) with careful monitoring of potassium and other electrolytes, especially in the olga- dialysis period given prior arrest during hemodialysis. \-- Avoid nephrotoxic antibiotics where possible; specifically recommend discontinuation of gentamicin as above. \-- Continue close hemodynamic and rhythm monitoring during dialysis sessions. 4\. Chronic thrombocytopenia: \-- Platelet count has declined from ~115K on admission to as low as 60K, with recent level around 89K. \-- Avoid linezolid in the setting of chronic thrombocytopenia where possible, as recommended above. \-- Monitor platelet counts serially. \-- Transfusion and further hematologic evaluation to be directed by the primary/ICU team. 5\. Skin ulcers, pressure injuries, and ischemic lesions: \-- Continue dedicated wound care with: Sacrococcygeal ulcer (2.5 x 0.2 cm, full thickness, granulating, no drainage/odor). Right anterior ulcer (3 x 4 cm, healthy granulation and epithelium, no drainage or surrounding edema). Eschar on toes and ankle at prior ulcer/ischemic sites. Multiple left plantar blood-filled blisters and calluses, with blisters de-roofed to healthy underlying tissue and no deep edema or induration. \-- Maintain offloading and repositioning strategies to avoid further pressure on sacrum and other bony prominences; defer specific dressing and positioning regimens to wound care nursing. \-- No systemic antibiotics indicated for these wounds at present, in the absence of cellulitis or systemic signs of infection. 6\. Cardiovascular status; postcardiac arrest care: \-- He has had two significant cardiac events (wkw-xo-[id number] arrest at dialysis center; in-hospital asystolic arrest during hemodialysis). \-- Etiology remains unclear but may be related in part to electrolyte shifts in the setting of CKD on dialysis and underlying structural heart disease (CHF, pacemaker in place). \-- Currently off vasopressors with stable blood pressures per transcript. \-- Continue telemetry and standard postcardiac arrest care as directed by ICU/cardiology teams. \-- No additional ID-specific interventions beyond those noted. 7\. Diabetes mellitus, hypertension, CHF, history of stroke: \-- Management to be continued by primary and consulting services. \-- From an ID standpoint, these comorbidities increase risk of poor wound healing and infection; reinforce close monitoring of wounds and careful glycemic and volume control. Isolation Precautions: \-- Isolation precautions: contact isolation for VRE/CRE . (Given colonization with VRE and carbapenem-resistant Enterobacter, facility policies on contact precautions should be followed as per hospital protocol; defer to hospital infection prevention team.) Plan is subject to change pending incorporation of new incoming information/diagnostics. Updates may be added as an addendum at the bottom (or top) of this note. Infectious Disease will continue to follow. Please contact the ID service with any new questions or concerns. Authorized and Performed by: lc huston MD Total critical care time: Approximately 76 minutes Due to a high probability of clinically significant, life threatening deterioration, the patient required my highest level of preparedness to intervene emergently and I personally spent this critical care time directly and personally managing the patient. This critical care time included obtaining a history; examining the patient; pulse oximetry; ordering and review of studies; arranging urgent treatment with development of a management plan; evaluation of patient's response to treatment; frequent reassessment; and, discussions with other providers. This critical care time was performed to assess and manage the high probability of imminent, life-threatening deterioration that could result in multi-organ failure. It was exclusive of separately billable procedures and treating other patients and teaching time. Electronically signed by: Lc Huston MD, 10/12/2025 HISTORY: The transcript of the current hospitalization was reviewed in detail. History source: Transcript of hospital course and consultants examination (patient currently intubated; direct history not documented in transcript). Theo Zamora is a 59-year-old male with a past medical history of CKD on hemodialysis (Sunday//Sunday), CHF, history of stroke, diabetes, and hypertension who presented after a syncopal episode and cardiac arrest at a dialysis center. He was witnessed to have syncope progressing to cardiac arrest, received CPR and AED shock from bystanders, and by the time EMS arrived he was alert and oriented x4 (GCS 15) but complained of chest wall pain. Initial ED evaluation showed WBC 7.5, hemoglobin 9.8, platelets 115K, sodium 142, BUN 43, creatinine 6.85. CT head showed no acute intracranial hemorrhage or mass effect. He was admitted to telemetry. Chest wall tenderness and bruising were noted on physical exam, consistent with CPR. He was initially on room air, later requiring 2 L nasal cannula by 09/30. On 10/01, while receiving hemodialysis, he became bradycardic and then asystolic, requiring 14 minutes of chest compressions and defibrillation at approximately 14 minutes 22 seconds. He was intubated and placed on mechanical ventilation (initially FiO2 50%, PEEP 5) and started on norepinephrine. Post-event labs showed WBC 7.2, hemoglobin 8.6, platelets 60K, sodium 140, potassium 4.6, BUN 51, creatinine 7.46, glucose 100; liver enzymes were unremarkable. Lactic acid was 5.7 after asystole and improved to 1.9 after return of circulation and fluid resuscitation. CXR and KUB on 10/01 showed ET tube and NG tube in appropriate positions, colonic distension, and moderate multifocal bilateral pulmonary airspace disease with pulmonary vascular congestion. Respiratory cultures on 10/01 showed normal respiratory elpidio; cultures on 10/02 showed no growth to date. He was started on empiric ceftriaxone for pneumonia coverage and clindamycin both for pneumonia and for skin injuries. A screen on 10/01 was reported as negative (test type not clearly specified in the transcript). Over subsequent days, vasopressor needs gradually improved and were discontinued by early in the second week of September; he has now been off pressors for approximately 5 days. FiO2 has been weaned to 30% with PEEP 5, though the most recent CXR continues to show multifocal airspace disease. On exam he has multiple skin injuries: a sacrococcygeal ulcer (2.5 x 0.2 cm, ful l thickness) with healthy granulation tissue and no odor or significant drainage; a right anterior ulcer (3 x 4 cm) with healthy granulation tissue and epithelium, no drainage, exudate, or surrounding swelling/edema; eschar on toes and ankle at sites of prior ulcers/ischemic disease; and multiple left plantar blood-filled blisters and calluses with no evidence of deeper edema or in duration. These lesions are attributed to peripheral arterial disease, pressure injuries, and thrombocytopenia-related skin fragility. Wound care is actively involved. A wound culture obtained on 10/06 grew VRE and a multidrug-resistant Enterobacter that is carbapenem-resistant and sensitive only to gentamicin. In response, the antibiotic regimen was changed from ceftriaxone to meropenem at one point, and the current regimen at the time of this consult is linezolid plus gentamicin per pharmacy. The ID impression is that these organisms represent colonization, not invasive infection, given the current clinical and wound appearance. REVIEW OF SYSTEMS: A complete review of systems is not documented in the transcript. -Constitutional: Not discussed in transcript. -HEENT: Not discussed in transcript. -Respiratory: Shortness of breath and cough not systematically addressed in transcript; respiratory status described in terms of mechanical ventilation and imaging. -Cardiovascular: Chest wall pain after CPR noted; no additional ROS details provided. -Gastrointestinal: No diarrhea; normal stool specifically noted. Other GI symptoms not discussed. -Genitourinary: Not discussed in transcript. -Musculoskeletal: Chest wall pain and tenderness post-CPR noted; no other MSK ROS details provided. -Skin: Presence of multiple ulcers, blisters, and eschar as described; pruritus or rash not otherwise discussed. -Neurological: Initial GCS 15 and orientation x4 after first arrest documented; no additional symptom-based ROS (e.g., headaches, syncope beyond index events) is provided. -Psychiatric: Mood, anxiety, and depression not discussed in transcript. PAST MEDICAL HISTORY: -Chronic kidney disease on hemodialysis (Sunday//Sunday) -Congestive heart failure -History of stroke -Diabetes (type not specified in transcript) -Hypertension PAST SURGICAL HISTORY: -Pacemaker placement (triple-lead device seen on chest X-ray) No other surgical history is provided in the transcript. HOME MEDICATIONS: Home/outpatient medications: Not provided in transcript. ALLERGIES: Allergies: Not provided in transcript. FAMILY HISTORY: Family history: Not provided in transcript. SOCIAL HISTORY: -Tobacco: No smoking -Alcohol: No alcohol use -Illicit drugs: No heavy drug use (no further detail provided) -Other social, occupational, or living situation details: Not provided in transcript. OBJECTIVE: Vital Signs on Arrival: -On admission: BP 142/80. Heart rate documented as 27.6, 99% on nasal cannula in transcript (exact heart rate and oxygen saturation values somewhat unclear, but SpO2 99% on nasal cannula inferred). Most Recent Vital Signs: -Most recent complete vital signs set: Not provided in transcript. Admission Weight: -Weight and BMI: Not provided in transcript. Physical Exam: General: NAD Neck: Supple. No masses. HEENT: PERRL. Normal lids and conjunctiva. Moist mucous membranes. Oropharynx without lesions, exudates or excessive erythema. Normal appearance of the external aspects of the nose and ears. Heart: Regular rhythm, normal rate. No murmur. No lower extremity edema. Lungs: Normal respiratory effort. Clear to auscultation bilaterally. No wheezes. No crackles. Mechanically ventilated via endotracheal tube; most recent settings in transcript: FiO2 approximately 30%, PEEP 5 cm H?O. Abdomen: Soft. Non-tender. Non-distended. No masses or abdominal hernia. Msk: No digital cyanosis. Normal strength and tone in all 4 limbs. Chest wall tenderness and bruising present, consistent with recent CPR. Skin: Warm and dry, no rashes. Sacrococcygeal ulcer approximately 2.5 x 0.2 cm, full-thickness wound with healthy granulation tissue, no odor or significant drainage. Right anterior ulcer approximately 3 x 4 cm with healthy granulation tissue and epithelium, no drainage, exudate, or surrounding swelling/edema. Eschar noted on toes and ankle in areas of prior ulcers/ischemic disease. Multiple left plantar foot blood-filled blisters and calluses; blisters de- roofed with intact underlying skin, no signs of deeper edema or induration. Scattered skin ulceration and tissue injury consistent with peripheral arterial disease and pressure injury. Neuro: Alert. No facial droop or slurred speech. Extra-ocular movements intact. Sensation intact to soft touch in all 4 limbs. Psych: Appropriate mood. Full affect. Oriented to person, place, time, and situation. Lines: Active lines (per transcript): -Right internal jugular hemodialysis permacath; site described as clean, dry, and intact. -Endotracheal tube in place (date and size not specified in transcript). DIAGNOSTIC STUDIES: Available diagnostic studies referenced in the transcript were reviewed. Significant results are summarized below or addressed in the Assessment and Plan. Laboratory Data (selected, from transcript): -On initial admission: -WBC: 7.5 x10/L -Hemoglobin: 9.8 g/dL -Platelets: 115 x10/L -Sodium: 142 mmol/L -BUN: 43 mg/dL -Creatinine: 6.85 mg/dL -On 10/01 (post-asystole and intubation): -WBC: 7.2 x10/L -Hemoglobin: 8.6 g/dL -Platelets: 60 x10/L -Sodium: 140 mmol/L -Potassium: 4.6 mmol/L -BUN: 51 mg/dL -Creatinine: 7.46 mg/dL -Glucose: 100 mg/dL -Liver enzymes: Unremarkable (per transcript) -Lactic acid: 5.7 mmol/L after asystole, improved to 1.9 mmol/L after return of circulation and fluid resuscitation -Most recent platelet count: -Approximately 89 x10/L (described as remains severely low at 89). -Microbiology: -Respiratory culture (10/01): Normal respiratory elpidio. -Cultures (10/02): No growth to date (specimen type not specified). -Wound culture (10/06): VRE and Enterobacter (carbapenem-resistant, sensitive only to gentamicin). -A screening test on 10/01 is described as negative in the transcript ([place] on the fourth was negative specific test not clearly defined). PERTINENT IMAGING: (From transcript; dates approximate based on context.) -CT Head (non-contrast): -No acute intracranial hemorrhage. -No extra-axial fluid collection, mass effect, or midline shift. -Ventricles midline and normal in size. -Basilar cisterns patent. -Bilateral parietal and right occipital encephalomalacia; less pronounced left occipital encephalomalacia. -Periventricular and subcortical white matter chronic microvascular ischemic changes. -Mild global cerebral volume loss. -Paranasal sinuses and mastoids are well pneumatized. -Chest X-ray on admission: -Triple-lead pacemaker in place. -Bilateral airspace patchy opacities. -Pleural effusions. -No fractures noted. Findings consistent with pulmonary contusions and pulmonary congestion. -Chest X-ray on 10/01: -Endotracheal tube in place. -Moderate multifocal bilateral pulmonary airspace disease. -Pulmonary vascular congestion. -Abdominal imaging (KUB, date around 10/01): -Colonic distension. -NG tube visualized over the stomach. -Most recent chest X-ray (date not explicitly stated, described as most rec ent): -Unchanged multifocal airspace disease. (Additional exact imaging reports, measurements, or interpretations are not prov ided in the transcript beyond the above summary.) Plan discussed with: Patient LC HUSTON MD Oct 12, 2025 22:51
[2025-10-13] VITALS (105 sets, daily range): BP systolic 115–168; BP diastolic 41–85; PULSE 64–88; RESP 9–24; TEMP 98–98.7; O2SAT 97–100
--- NOTE | 2025-10-13 00:20 | DVHPN2 ---
Progress Note - Dictate Date Seen: Oct 12, 2025 Has the PT tested + for MRSA If YES, has PT been informed?: No Medical Necessity Reason Pt with a Central, PICC or Fol: Yes The following are medically ne: Central Line, Rosales Catheter Reason for rosales catheter: Strict I&O Subjective Patient was seen and evaluated in follow up in the ICU. Patient is intubated and sedated on ventilator. 40% FiO2. Patient received dialysis today. The patients eyes are closed, but is responsive to light touch, he has a little bit conjugated eye movement and blinking on waking up, but he does not track or follow verbal commands. HGB 8.1, HCT 25.3. Chest x-ray shows unchanged pulmonary vascular congestion /multifocal airspace disease. vital signs Vital Sign Date Time Temp Pulse Resp B/P (MAP) Pulse Ox O2 Delivery O2 Flow Rate FiO2 10/13/25 00:13 64 22 124/53 (76) 100 40 10/12/25 20:00 98.4 98.4 10/12/25 17:47 Mechanical Ventilator+ Total Intake and Output 10/12/25 10/12/25 10/13/25 15:00 23:00 07:00 Intake Total 182.625 ml 362.660 ml Output Total 75 ml Balance 182.625 ml 287.660 ml medications Current Medications Medications Dose Ordered Sig/Esteban Route Start Time Stop Time Status Last Admin Dose Admin Diagnostic Test (Pha) 1 strip ACHS 09/26/25 22:00 10/12/25 21:25 1 STRIP Insulin Human Regular ACHS SC 09/26/25 22:00 10/12/25 21:34 2 UNITS Dextrose 50 ml UD PRN IV 09/26/25 21:15 Sodium Chloride 10 ml Q8HR IV 09/26/25 22:00 10/12/25 21:14 10 ML Sevelamer HCl 800 mg TIDWM PO 09/29/25 18:00 10/12/25 17:37 800 MG Amino Acid Protein 30 ml BID PO 09/30/25 22:00 10/12/25 21:25 30 ML Multivit/Ca Carb/ B Cmplx/FA/Prenat 1 tab DAILY PO 09/30/25 11:12 10/12/25 12:19 1 TAB Epinephrine HCl 250 ml @ 7.5 mls/hr Q24H IV 10/01/25 15:15 10/01/25 15:39 15 MLS/HR Norepinephrine Bitartrate 250 ml @ 3.75 mls/hr Q24H IV 10/01/25 15:15 10/06/25 09:44 3.75 MLS/HR Albumin Human 100 ml @ 100 mls/hr ANABELLA PRN IV 10/03/25 09:45 10/07/25 17:42 100 MLS/HR Aspirin 81 mg DAILY NG 10/05/25 10:00 10/12/25 13:35 81 MG Enteral Nutritional Formula 1,000 ml 40ML/HR GT 10/04/25 18:30 10/10/25 22:15 1,000 ML Famotidine 10 mg HS IV 10/07/25 22:00 10/12/25 21:14 10 MG Albuterol 2.5 mg Q6HR NEB 10/08/25 12:00 10/13/25 00:13 2.5 MG Ipratropium [place] 0.5 mg Q6HR NEB 10/08/25 12:00 10/13/25 00:13 0.5 MG Artificial Tears 2 drop Q2HP PRN EACHEYE 10/08/25 14:30 Propofol 100 ml @ 3.966 mls/ hr Q24H IV 10/08/25 19:00 10/08/25 21:58 7.932 MLS/HR Linezolid 300 ml @ 150 mls/hr Q12H IV 10/10/25 16:15 10/12/25 16:15 150 MLS/HR Levetiracetam 100 ml @ 400 mls/hr BID IV 10/11/25 22:00 10/12/25 21:14 400 MLS/HR Lorazepam 1 mg Q5MINP PRN IV 10/11/25 21:00 Epoetin Mohan-epbx 10,000 unit MWF@2100 SC 10/12/25 21:00 10/12/25 21:11 10,000 UNIT Gentamicin Sulfate 0 ml @ 0 mls/hr PER PHARMACY IV 10/12/25 18:15 objective GENERAL: Ill appearing, intubated on ventilator. Morbidly obese. EYES: PERRL, EOMI. Anicteric. HENT: Moist mucous membranes. LUNGS: Decreased breath sounds. CARDIOVASCULAR: Regular rate and rhythm. ABDOMEN: Soft, non-tender and non-distended. EXTREMITIES: No edema. SKIN: Warm, dry. laboratory and microbiology Laboratory Tests 10/12/25 02:50 Test 10/12/25 02:50 Range/Units Serum Glucose 136 H 74-106 mg/dL Problem List Acute syncopal episode. Status post cardiac arrest x3. ESRD on hemodialysis. Hypertension. Peripheral neuropathy. Severe peripheral artery disease. Acute on chronic congestive heart failure exacerbation. History of CVA. Anemia of chronic disease. Diabetes with severe diabetic nephropathy. History of pacemaker. Morbidly obese. Decompensated heart failure with ejection fraction less than 25%. Encephalomalacia. Hyperphosphatemia. Hyperparathyroidism. Assessment/Plan Continued all current supportive medical care. Aspirin. IV antibiotics as ordered. Morphine and Armour for pain management. Vasopressors for hemodynamic support. Additional plan as per the hospital course. Critical care time of 45 minutes provided to include time spent evaluation of patient at bedside, when appropriate patient/family education for diagnosis, treatment plan, review of pertinent medical information and discussion of care with specialty providers and PCP. Mechanical ventilator parameters, treatment and adjustments have personally been reviewed by me and treatment plan by chemical process equipment operator has also been reviewed. Dietary Evaluation Review Comments: Nutrition Recommendation: 1) CCHO 75gm + renal standard diet 2) Pro-stat 1 pk BID 3) Nephro-nellie 1 tab daily 4) Monitor PO intake, lab values, weight trend, and I/O Expected Outcomes/Goals: Wound to improve Intake to meet >75% estimated needs FU 3-5 days Plan discussed with: MATTHEW Sened MD Oct 13, 2025 00:20
[2025-10-13 03:38] LABS: Chloride 99 mmol/L (98-107); Potassium 3.7 mmol/L (3.5-5.1); Sodium 140 mmol/L (136-145)
[2025-10-13 03:40] LABS: Anion Gap 11 (5-15); Carbon Dioxide 30 mmol/L (20-31)
[2025-10-13 03:45] LABS: BUN/Creatinine Ratio 8.6 (10.0-20.0)
[2025-10-13 03:54] LABS: Blood Urea Nitrogen 45 mg/dL (9-23); Calcium 8.6 mg/dL (8.7-10.4); Glucose 126 mg/dL (74-106); Iron 37.0 ug/dL (65-175); Total Iron Binding Capacity 185.0 ug/dL (250-425)
[2025-10-13 03:58] LABS: Hematocrit 25.9 % (41.0-53.0); Hemoglobin 8.1 g/dL (13.5-17.5); Mean Corpuscular Hemoglobin 30.9 pg (28.0-32.0); Mean Corpuscular Volume 98.7 fL (80.0-100.0); Nucleated Red Blood Cells % 0.8 %
--- NOTE | 2025-10-13 05:10 | DVH ---
CHEST RADIOGRAPH Indication: Intubated Technique: Single frontal view of the chest was obtained COMPARISON: XY CHEST XRAY 1 VIEW on DOS: 10/12/25, XY CHEST PORTABLE on DOS: 10/11/25, XY CHEST XRAY 1 VIEW on DOS: 10/10/25, XY CHEST PORTABLE on DOS: 10/09/25, XY CHEST XRAY 1 VIEW on DOS: 10/09/25 FINDINGS: Lines and Tubes: Endotracheal tube, enteric catheter, left chest pacemaker and tunneled right central venous catheter in satisfactory position. Lungs: Unchanged multifocal airspace disease. Pleura: No effusion.No pneumothorax. Cardiomediastinal contours: Cardiomegaly. Bones: Unremarkable IMPRESSION: Lines and tubes in satisfactory position. No significant interval change.
[2025-10-13 08:24] LABS: Base Excess 2.0 mmol/L (-2.0-3.0)
--- NOTE | 2025-10-13 10:11 | DVHPN2 ---
Progress Note - Dictate Date Seen: Oct 13, 2025 Has the PT tested + for MRSA If YES, has PT been informed?: No Medical Necessity Reason Pt with a Central, PICC or Fol: Yes The following are medically ne: Central Line, Rosales Catheter Reason for rosales catheter: Strict I&O Subjective Mr. Zamora is a right-handed gentleman with a history of hypertension, diabetes, coronary artery disease, congestive heart failure, chronic kidney failure, chronic leg edema, obesity, stroke, RLS, he was brought to the [facility] on 09/26/2025 with a chief complaint of cardiopulmonary arrest. I saw him on 01/18/2024 for seizure activity I have seen and examined the patient, I have talked to his nurse and other medical staff, family in the room His eyes are closed, he is responsive to light touch, but not to verbal stimuli, he moves the right leg only Precedex 0.04 Urinalysis, 10/08/2025: WBC: 1809, urine leukocyte esterase: 3+ ABG, 10/01/2025: Respiratory acidosis WBC/HB/PLT/MCV, 10/11/2025: 7/8/166/97.4 BUN/CR, 10/11/2025: 57/6.09 GFR, 10/11/2025: 10 HGB A1c, 08/17/2025: 7.4 Liver function tests, 10/11/2025: Unremarkable TG/HDL/LDL/HDL, 01/14/2024: 77/162/103/48 Chest x-ray, 10/01/2025: 1. Endotracheal tube tip projects at the level of the tiburcio. Recommend retraction by 2 cm. 2. Remaining Lines and tubes as above. 3. Moderate multifocal bilateral pulmonary airspace disease and pulmonary vascular congestion Chest x-ray, 10/11/2025: Endotracheal tube, enteric catheter in satisfactory position. Right tunneled central venous catheter and left chest wall pacemaker, unchanged. CT head, 10/10/2025: 1. No acute intracranial abnormality. 2. 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 3. Likely chronic right cerebellar infarct vital signs Vital Sign Date Time Temp Pulse Resp B/P (MAP) Pulse Ox O2 Delivery O2 Flow Rate FiO2 10/13/25 07:40 76 21 152/66 (94) 99 40 10/13/25 06:02 Mechanical Ventilator+ 10/13/25 04:00 98.2 98.2 Total Intake and Output 10/12/25 10/12/25 10/13/25 15:00 23:00 07:00 Intake Total 182.625 ml 412.160 ml 529.215 ml Output Total 75 ml 200 ml Balance 182.625 ml 337.160 ml 329.215 ml medications Current Medications Medications Dose Ordered Sig/Esteban Route Start Time Stop Time Status Last Admin Dose Admin Diagnostic Test (Pha) 1 strip ACHS 09/26/25 22:00 10/13/25 06:41 1 STRIP Insulin Human Regular ACHS SC 09/26/25 22:00 10/13/25 06:41 2 UNITS Dextrose 50 ml UD PRN IV 09/26/25 21:15 Sodium Chloride 10 ml Q8HR IV 09/26/25 22:00 10/13/25 06:05 10 ML Sevelamer HCl 800 mg TIDWM PO 09/29/25 18:00 10/12/25 17:37 800 MG Amino Acid Protein 30 ml BID PO 09/30/25 22:00 10/12/25 21:25 30 ML Multivit/Ca Carb/ B Cmplx/FA/Prenat 1 tab DAILY PO 09/30/25 11:12 10/12/25 12:19 1 TAB Epinephrine HCl 250 ml @ 7.5 mls/hr Q24H IV 10/01/25 15:15 10/01/25 15:39 15 MLS/HR Norepinephrine Bitartrate 250 ml @ 3.75 mls/hr Q24H IV 10/01/25 15:15 10/06/25 09:44 3.75 MLS/HR Albumin Human 100 ml @ 100 mls/hr ANABELLA PRN IV 10/03/25 09:45 10/07/25 17:42 100 MLS/HR Aspirin 81 mg DAILY NG 10/05/25 10:00 10/12/25 13:35 81 MG Enteral Nutritional Formula 1,000 ml 40ML/HR GT 10/04/25 18:30 10/13/25 03:51 1,000 ML Famotidine 10 mg HS IV 10/07/25 22:00 10/12/25 21:14 10 MG Albuterol 2.5 mg Q6HR NEB 10/08/25 12:00 10/13/25 06:06 2.5 MG Ipratropium [place] 0.5 mg Q6HR NEB 10/08/25 12:00 10/13/25 06:06 0.5 MG Artificial Tears 2 drop Q2HP PRN EACHEYE 10/08/25 14:30 Propofol 100 ml @ 3.966 mls/ hr Q24H IV 10/08/25 19:00 10/08/25 21:58 7.932 MLS/HR Linezolid 300 ml @ 150 mls/hr Q12H IV 10/10/25 16:15 10/13/25 04:45 150 MLS/HR Levetiracetam 100 ml @ 400 mls/hr BID IV 10/11/25 22:00 10/12/25 21:14 400 MLS/HR Lorazepam 1 mg Q5MINP PRN IV 10/11/25 21:00 Epoetin Mohan-epbx 10,000 unit MWF@2100 SC 10/12/25 21:00 10/12/25 21:11 10,000 UNIT Gentamicin Sulfate 0 ml @ 0 mls/hr PER PHARMACY IV 10/12/25 18:15 objective The patient is well-nourished and well-developed with no distress. The patient is intubated Superficial skin lesions of different ages in the feet MENTAL STATUS: Subjective CRANIAL NERVES: Pupils are equal, round and reactive. Possible conjugated eye movement, he blinks. No signs of facial weakness. There are gagging or coughing reflexes SENSATION: No responses to pain stimuli. MOTOR: Normal tone in the upper and lower extremity. Normal muscle bulk. No fasciculations. Subjective REFLEXES: Deep tendon reflexes are symmetrical. No pathological reflexes. CEREBELLAR/COORDINATION: Deferred GAIT/STATION: deferred. laboratory and microbiology Laboratory Tests 10/13/25 02:30 Test 10/13/25 02:30 Range/Units Serum Glucose 126 H 74-106 mg/dL Problem List Altered mental status Hypoxic encephalopathy Metabolic encephalopathy Cardiopulmonary arrest Status post CPR Chronic multiple strokes Grand mal seizure Diabetic polyneuropathy Restless leg syndrome Wound/wound infection Assessment/Plan Monitoring Supportive treatment ICU care EEG Follow-up lab Stabilize vitals Respiratory support/vent management IV antibiotics Aspirin 81 mg daily Keppra 500 mg b.i.d. IV for now, back to Trileptal 450 mg b.i.d. later Ativan for seizure breakthrough Wound care More recommendation per clinical course This medical document was created using an electronic medical record system with [employer] computerized dictation system. Although this document has been carefully reviewed, there may still be some phonetic and typographical errors. These areas are purely typographical due to imperfections of the software programs, and do not reflect any compromise in the patient's medical care. Prognosis poor Dietary Evaluation Review Comments: Nutrition Recommendation: 1) CCHO 75gm + renal standard diet 2) Pro-stat 1 pk BID 3) Nephro-nellie 1 tab daily 4) Monitor PO intake, lab values, weight trend, and I/O Expected Outcomes/Goals: Wound to improve Intake to meet >75% estimated needs FU 3-5 days Plan discussed with: Other Critical Care Time(min): 35 PETER MUÑOZ MD Oct 13, 2025 10:11
--- NOTE | 2025-10-13 13:03 | DVHPN2 ---
Progress Note Date Seen: Oct 13, 2025 Has the PT tested + for MRSA If YES, has PT been informed?: No Medical Necessity Reason Pt with a Central, PICC or Fol: Yes The following are medically ne: Central Line, Rosales Catheter Reason for rosales catheter: Strict I&O Subjective Review of Systems: Deferred Objective vital signs Vital Sign Date Time Temp Pulse Resp B/P (MAP) Pulse Ox O2 Delivery O2 Flow Rate FiO2 10/13/25 12:00 18 99 Mechanical Ventilator+ 40 40 10/13/25 12:00 74 10/13/25 12:00 129/48 (75) 10/13/25 08:00 98.7 98.7 Total Intake and Output 10/12/25 10/12/25 10/13/25 15:00 23:00 07:00 Intake Total 182.625 ml 412.160 ml 539.130 ml Output Total 75 ml 200 ml Balance 182.625 ml 337.160 ml 339.130 ml medications Current Medications Medications Dose Ordered Sig/Esteban Route Start Time Stop Time Status Last Admin Dose Admin Diagnostic Test (Pha) 1 strip ACHS 09/26/25 22:00 10/13/25 11:23 1 STRIP Insulin Human Regular ACHS SC 09/26/25 22:00 10/13/25 06:41 2 UNITS Dextrose 50 ml UD PRN IV 09/26/25 21:15 Sodium Chloride 10 ml Q8HR IV 09/26/25 22:00 10/13/25 06:05 10 ML Sevelamer HCl 800 mg TIDWM PO 09/29/25 18:00 10/12/25 17:37 800 MG Amino Acid Protein 30 ml BID PO 09/30/25 22:00 10/12/25 21:25 30 ML Multivit/Ca Carb/ B Cmplx/FA/Prenat 1 tab DAILY PO 09/30/25 11:12 10/12/25 12:19 1 TAB Epinephrine HCl 250 ml @ 7.5 mls/hr Q24H IV 10/01/25 15:15 10/01/25 15:39 15 MLS/HR Norepinephrine Bitartrate 250 ml @ 3.75 mls/hr Q24H IV 10/01/25 15:15 10/06/25 09:44 3.75 MLS/HR Albumin Human 100 ml @ 100 mls/hr ANABELLA PRN IV 10/03/25 09:45 10/07/25 17:42 100 MLS/HR Aspirin 81 mg DAILY NG 10/05/25 10:00 10/13/25 10:17 81 MG Enteral Nutritional Formula 1,000 ml 40ML/HR GT 10/04/25 18:30 10/13/25 03:51 1,000 ML Famotidine 10 mg HS IV 10/07/25 22:00 10/12/25 21:14 10 MG Albuterol 2.5 mg Q6HR NEB 10/08/25 12:00 10/13/25 11:51 2.5 MG Ipratropium [place] 0.5 mg Q6HR NEB 10/08/25 12:00 10/13/25 11:51 0.5 MG Artificial Tears 2 drop Q2HP PRN EACHEYE 10/08/25 14:30 Propofol 100 ml @ 3.966 mls/ hr Q24H IV 10/08/25 19:00 10/08/25 21:58 7.932 MLS/HR Linezolid 300 ml @ 150 mls/hr Q12H IV 10/10/25 16:15 10/13/25 04:45 150 MLS/HR Levetiracetam 100 ml @ 400 mls/hr BID IV 10/11/25 22:00 10/13/25 10:16 400 MLS/HR Lorazepam 1 mg Q5MINP PRN IV 10/11/25 21:00 Epoetin Mohan-epbx 10,000 unit MWF@2100 SC 10/12/25 21:00 10/12/25 21:11 10,000 UNIT Gentamicin Sulfate 0 ml @ 0 mls/hr PER PHARMACY IV 10/12/25 18:15 Examination: GENERAL:Abnormal, LUNGS:Abnormal, CVS:Abnormal, NEURO:Abnormal laboratory and microbiology Laboratory Tests 10/13/25 02:30 Test 10/13/25 02:30 Range/Units Serum Glucose 126 H 74-106 mg/dL Microbiology Date/Time Source Procedure Growth Status 10/08/25 22:28 Urine - Rosales [place] Urine Culture - Final Complete 10/06/25 13:00 Sacrum Gram Stain - Final Resulted 10/06/25 13:00 Wound Culture - Preliminary Enterobacter cloacae Enterococcus faecalis - VRE Resulted 10/02/25 17:33 Blood Blood Culture - Final NO GROWTH AFTER 5 DAYS OF INCUBATION. Complete Problem List/Assessment/Plan Problem List/Assessment/Plan End-stage renal disease on hemodialysis Acute respiratory failure, patient intubated on ventilator Status post cardiac arrest x3 Decompensated heart failure with ejection fraction less than 25% Diabetes with severe diabetic nephropathy Severe peripheral artery disease Anemia of chronic kidney disease Encephalomalacia Hyperphosphatemia Hyperparathyroidism, secondary Hd SUNDAY slight visual tracking today, continue neuro checks fluid removal as tolerated avoid hypotension neuro checks, neurology on case rest of care per critical care and primary Plan discussed with: Other My Orders My Orders Orders - VAISHALI SAMAYOA MD Procedure Category Date Status Time Epoetin Mohan-Epbx [facility] 10/12/25 In Process (Retacrit) 21:00 Dietary Evaluation Review Comments: Nutrition Recommendation: 1) CCHO 75gm + renal standard diet 2) Pro-stat 1 pk BID 3) Nephro-nellie 1 tab daily 4) Monitor PO intake, lab values, weight trend, and I/O Expected Outcomes/Goals: Wound to improve Intake to meet >75% estimated needs FU 3-5 days VAISHALI SAMAYOA MD Oct 13, 2025 13:03
--- NOTE | 2025-10-13 15:13 | DVHPN2 ---
Consult Progress Note Date Seen: Oct 13, 2025 Subjective Patient reports: No new complaints, Feels better (no new fevers off antibiotics) Objective vital signs Vital Sign Date Time Temp Pulse Resp B/P (MAP) Pulse Ox O2 Delivery O2 Flow Rate FiO2 10/13/25 14:12 74 18 118/51 (73) 99 40 10/13/25 14:00 Mechanical Ventilator+ 10/13/25 12:00 98.1 98.1 Total Intake and Output 10/12/25 10/12/25 10/13/25 15:00 23:00 07:00 Intake Total 182.625 ml 412.160 ml 539.130 ml Output Total 75 ml 200 ml Balance 182.625 ml 337.160 ml 339.130 ml medications Current Medications Medications Dose Ordered Sig/Esteban Route Start Time Stop Time Status Last Admin Dose Admin Diagnostic Test (Pha) 1 strip ACHS 09/26/25 22:00 10/13/25 11:23 1 STRIP Insulin Human Regular ACHS SC 09/26/25 22:00 10/13/25 06:41 2 UNITS Dextrose 50 ml UD PRN IV 09/26/25 21:15 Sodium Chloride 10 ml Q8HR IV 09/26/25 22:00 10/13/25 14:00 10 ML Sevelamer HCl 800 mg TIDWM PO 09/29/25 18:00 10/12/25 17:37 800 MG Amino Acid Protein 30 ml BID PO 09/30/25 22:00 10/12/25 21:25 30 ML Multivit/Ca Carb/ B Cmplx/FA/Prenat 1 tab DAILY PO 09/30/25 11:12 10/12/25 12:19 1 TAB Epinephrine HCl 250 ml @ 7.5 mls/hr Q24H IV 10/01/25 15:15 10/01/25 15:39 15 MLS/HR Norepinephrine Bitartrate 250 ml @ 3.75 mls/hr Q24H IV 10/01/25 15:15 10/06/25 09:44 3.75 MLS/HR Albumin Human 100 ml @ 100 mls/hr ANABELLA PRN IV 10/03/25 09:45 10/07/25 17:42 100 MLS/HR Aspirin 81 mg DAILY NG 10/05/25 10:00 10/13/25 10:17 81 MG Enteral Nutritional Formula 1,000 ml 40ML/HR GT 10/04/25 18:30 10/13/25 03:51 1,000 ML Famotidine 10 mg HS IV 10/07/25 22:00 10/12/25 21:14 10 MG Albuterol 2.5 mg Q6HR NEB 10/08/25 12:00 10/13/25 11:51 2.5 MG Ipratropium [place] 0.5 mg Q6HR NEB 10/08/25 12:00 10/13/25 11:51 0.5 MG Artificial Tears 2 drop Q2HP PRN EACHEYE 10/08/25 14:30 Propofol 100 ml @ 3.966 mls/ hr Q24H IV 10/08/25 19:00 10/08/25 21:58 7.932 MLS/HR Levetiracetam 100 ml @ 400 mls/hr BID IV 10/11/25 22:00 10/13/25 10:16 400 MLS/HR Lorazepam 1 mg Q5MINP PRN IV 10/11/25 21:00 Epoetin Mohan-epbx 10,000 unit MWF@2100 SC 10/12/25 21:00 10/12/25 21:11 10,000 UNIT Gentamicin Sulfate 0 ml @ 0 mls/hr PER PHARMACY IV 10/12/25 18:15 Cancel laboratory and microbiology Laboratory Tests 10/13/25 02:30 Test 10/13/25 02:30 Range/Units Serum Glucose 126 H 74-106 mg/dL Problem List/Assessment/Plan Problem List/Assessment/Plan ASSESSMENT AND PLAN: ID Problem List: \-- [id number] cardiac arrest at dialysis center with bystander CPR and AED shock \-- In-hospital bradycardia/asystolic arrest during hemodialysis on 10/01 with prolonged CPR and defibrillation \-- Acute hypoxic respiratory failure requiring mechanical ventilation \-- Multifocal pulmonary airspace disease and pulmonary vascular congestion (pulmonary edema/contusions) after multiple CPR events and underlying CHF \-- CKD on chronic hemodialysis (reported schedule Sunday//Sunday) \-- CHF \-- Diabetes mellitus \-- Hypertension \-- History of stroke \-- Pacemaker in situ (triple-lead on CXR) \-- Chronic thrombocytopenia (platelets progressively decreased from ~115K on admission to 60K on 10/01; most recent ~89K) \-- Sacrococcygeal pressure ulcer (full-thickness, granulating, no drainage/odor) \-- Right anterior ulcer (granulating, no drainage/edema) \-- Multiple left plantar blood-filled blisters and calluses (no deep tissue involvement) \-- Scattered skin ulcers/eschar likely related to peripheral arterial disease and pressure injuries \-- Wound culture (10/06) with VRE and carbapenem-resistant Enterobacter (CRE), currently felt to represent colonization \-- Pneumonia vs pulmonary edema/contusions treated empirically with ceftriaxone clindamycin, later meropenem \-- Current antibiotic regimen: linezolid + gentamicin per pharmacy at the time of this consult Assessment: Theo Zamora is a 59-year-old male with CKD on chronic hemodialysis (//Sun), CHF, history of stroke, diabetes, and hypertension who initially had a syncopal episode and cardiac arrest at the dialysis center. He received bystander CPR and AED shock; on EMS arrival he was awake, alert, and oriented x4 (GCS 15) but had chest wall pain. Initial evaluation showed leukocyte count 7.5, hemoglobin 9.8, platelets 115K, sodium 142, BUN 43, creatinine 6.85. CT head revealed no acute intracranial hemorrhage or mass effect but did show chronic encephalomalacia and chronic microvascular ischemic changes. CXR showed a triple-lead pacemaker and bilateral airspace opacities and pleural effusions without fractures, interpreted as pulmonary contusions and congestion. He was admitted to telemetry and subsequently developed a second arrest on 10/01 while on hemodialysis, with bradycardia progressing to asystole. He received chest compressions for 14 minutes and defibrillation at approximately 14 minutes 22 seconds. Post-code lactic acid was 5.7, improving to 1.9 after return of circulation and fluid resuscitation. Labs on 10/01: WBC 7.2, hemoglobin 8.6, platelets 60K, sodium 140, potassium 4.6, BUN 51, creatinine 7.46, glucose 100, liver enzymes unremarkable. He required intubation and mechanical ventilation (FiO2 50%, PEEP 5 initially), vasopressor support with norepinephrine (Levophed), and empiric antibiotics (ceftriaxone for pneumonia coverage; clindamycin for pneumonia and skin injuries). Respiratory cultures on 10/01 showed normal respiratory elpidio; cultures on 10/02 showed no growth to date. CXR and KUB showed colonic distension with NG tube in the stomach, and moderate multifocal bilateral pulmonary airspace disease with pulmonary vascular congestion. Vasopressor requirements gradually improved and were discontinued; he has now been off pressors for approximately 5 days. FiO2 has improved to 30% with PEEP 5, though CXR continues to show unchanging multifocal airspace disease. On exam he has multiple skin injuries, including a sacrococcygeal full-thickness ulcer (2.5 x 0.2 cm) with healthy granulation tissue and no odor or significant drainage, and a right anterior ulcer (3 x 4 cm) with healthy granulation and epithelium, no drainage, exudate, or surrounding swelling/edema. Eschar is noted on toes and ankle in areas of prior ulcers/ischemic disease. There are multiple left plantar foot blood-filled blisters and calluses; de-roofed blisters reveal intact underlying skin with no deeper edema or induration. These injuries are thought to be related to peripheral arterial disease, pressure, and thrombocytopenia-related skin fragility. Wound care is being provided. A wound culture on 10/06 grew VRE and a multidrug-resistant Enterobacter (carbapenem-resistant), sensitive only to gentamicin. Current antibiotics include linezolid and gentamicin per pharmacy. Clinically, there are no signs of cellulitis at the wound sites, no diarrhea, no reports of new drainage or local changes, and no ongoing hemodynamic instability or other signs of sepsis. The VRE and Enterobacter are felt to represent colonization of chronic wounds rather than active invasive infection at this time. Given his advanced CKD on dialysis and chronic thrombocytopenia (platelets <100K), the risks of gentamicin (nephrotoxicity/ototoxicity in a dialysis patient) and linezolid (worsening thrombocytopenia) likely outweigh the benefits in the absence of clear evidence of active systemic infection. 10/13: hemodynamically stable off antibiotics Plan: 1\. Wound colonization with VRE and CRE Enterobacter (no current evidence of invasive infection): \-- Wound culture (10/06) with VRE and carbapenem-resistant Enterobacter likely represents colonization of chronic pressure/ischemic ulcers rather than active infection based on current exam (granulation tissue, lack of drainage, lack of surrounding erythema/edema, no systemic signs of sepsis). \-- Recommend stop all systemic antibiotics at this time, including linezolid and gentamicin, given: Lack of clinical evidence for active invasive infection High risk of ototoxicity/nephrotoxicity from gentamicin in a dialysis patient Risk of worsening thrombocytopenia with linezolid in a patient with platelets <100K \-- Continue meticulous local wound care as per wound care nursing and primary team. \-- Monitor wounds closely for any new drainage, malodor, increased pain, erythema, warmth, or expansion, which would raise concern for superimposed infection. 2\. Acute hypoxic respiratory failure; multifocal airspace disease (pulmonary edema/contusions; possible pneumonia): \-- Currently mechanically ventilated with FiO2 ~30% and PEEP 5; off vasopressors for ~5 days. \-- Continue ventilator weaning as tolerated per ICU/primary team. \-- Continue aggressive volume management and diuresis in concert with hemodialysis to address pulmonary edema as seen on CXR. \-- At present, respiratory cultures show only normal elpidio or no growth; there are no clear signs of active, progressive pneumonia distinct from pulmonary edema/contusion. \-- If clinical concern for sepsis or worsening pneumonia arises (e.g., new fever, leukocytosis, rising vasopressor requirement, worsening oxygenation, hypotension, new purulent secretions): Obtain repeat sputum culture from a tracheal aspirate or tracheal wash. Reinitiate empiric therapy for hospital-acquired pneumonia. Options discussed include: Piperacillin-tazobactam (Zosyn) or cefepime for Pseudomonas and broad gram-negative coverage. At this time, VRE and carbapenem-resistant Enterobacter from the sacral wound are not felt to be significantly contributing to the pulmonary process or overall clinical picture, and targeted therapy against these organisms is not recommended absent evidence of invasive disease. 3\. Chronic kidney disease on hemodialysis; risk of electrolyte-related arrhythmia and arrest: \-- Continue scheduled hemodialysis (reported Sunday//Sunday) with careful monitoring of potassium and other electrolytes, especially in the olga- dialysis period given prior arrest during hemodialysis. \-- Avoid nephrotoxic antibiotics where possible; specifically recommend discontinuation of gentamicin as above. \-- Continue close hemodynamic and rhythm monitoring during dialysis sessions. 4\. Chronic thrombocytopenia: \-- Platelet count has declined from ~115K on admission to as low as 60K, with recent level around 89K. \-- Avoid linezolid in the setting of chronic thrombocytopenia where possible, as recommended above. \-- Monitor platelet counts serially. \-- Transfusion and further hematologic evaluation to be directed by the primary/ICU team. 5\. Skin ulcers, pressure injuries, and ischemic lesions: \-- Continue dedicated wound care with: Sacrococcygeal ulcer (2.5 x 0.2 cm, full thickness, granulating, no drainage/odor). Right anterior ulcer (3 x 4 cm, healthy granulation and epithelium, no drainage or surrounding edema). Eschar on toes and ankle at prior ulcer/ischemic sites. Multiple left plantar blood-filled blisters and calluses, with blisters de-roofed to healthy underlying tissue and no deep edema or induration. \-- Maintain offloading and repositioning strategies to avoid further pressure on sacrum and other bony prominences; defer specific dressing and positioning regimens to wound care nursing. \-- No systemic antibiotics indicated for these wounds at present, in the absence of cellulitis or systemic signs of infection. 6\. Cardiovascular status; postcardiac arrest care: \-- He has had two significant cardiac events ([id number] arrest at dialysis center; in-hospital asystolic arrest during hemodialysis). \-- Etiology remains unclear but may be related in part to electrolyte shifts in the setting of CKD on dialysis and underlying structural heart disease (CHF, pacemaker in place). \-- Currently off vasopressors with stable blood pressures per transcript. \-- Continue telemetry and standard postcardiac arrest care as directed by ICU/cardiology teams. \-- No additional ID-specific interventions beyond those noted. 7\. Diabetes mellitus, hypertension, CHF, history of stroke: \-- Management to be continued by primary and consulting services. \-- From an ID standpoint, these comorbidities increase risk of poor wound healing and infection; reinforce close monitoring of wounds and careful glycemic and volume control. Isolation Precautions: \-- Isolation precautions: Not specified in transcript. (Given colonization with VRE and carbapenem-resistant Enterobacter, facility policies on contact precautions should be followed as per hospital protocol; defer to hospital infection prevention team.) Plan is subject to change pending incorporation of new incoming information/diagnostics. Updates may be added as an addendum at the bottom (or top) of this note. Infectious Disease will continue to follow. Please contact the ID service with any new questions or concerns. Electronically signed by: Lc Polo MD, 10/13/2025 Authorized and Performed by: lc polo Md Total critical care time: Approximately 66 minutes Due to a high probability of clinically significant, life threatening deterioration, the patient required my highest level of preparedness to intervene emergently and I personally spent this critical care time directly and personally managing the patient. This critical care time included obtaining a history; examining the patient; pulse oximetry; ordering and review of studies; arranging urgent treatment with development of a management plan; evaluation of patient's response to treatment; frequent reassessment; and, discussions with other providers. This critical care time was performed to assess and manage the high probability of imminent, life-threatening deterioration that could result in multi-organ failure. It was exclusive of separately billable procedures and treating other patients and teaching time. Physical Exam: General: NAD Neck: Supple. No masses. HEENT: PERRL. Normal lids and conjunctiva. Moist mucous membranes. Oropharynx without lesions, exudates or excessive erythema. Normal appearance of the external aspects of the nose and ears. Heart: Regular rhythm, normal rate. No murmur. No lower extremity edema. Lungs: Normal respiratory effort. Clear to auscultation bilaterally. No wheezes. No crackles. Mechanically ventilated via endotracheal tube; most recent settings in transcript: FiO2 approximately 30%, PEEP 5 cm H?O. Abdomen: Soft. Non-tender. Non-distended. No masses or abdominal hernia. Msk: No digital cyanosis. Normal strength and tone in all 4 limbs. Chest wall tenderness and bruising present, consistent with recent CPR. Skin: Warm and dry, no rashes. Sacrococcygeal ulcer approximately 2.5 x 0.2 cm, full-thickness wound with healthy granulation tissue, no odor or significant drainage. Right anterior ulcer approximately 3 x 4 cm with healthy granulation tissue and epithelium, no drainage, exudate, or surrounding swelling/edema. Eschar noted on toes and ankle in areas of prior ulcers/ischemic disease. Multiple left plantar foot blood-filled blisters and calluses; blisters de- roofed with intact underlying skin, no signs of deeper edema or induration. Scattered skin ulceration and tissue injury consistent with peripheral arterial disease and pressure injury. Neuro: Alert. No facial droop or slurred speech. Extra-ocular movements intact. Sensation intact to soft touch in all 4 limbs. Psych: Appropriate mood. Full affect. Oriented to person, place, time, and situation. Plan discussed with: Patient Dietary Evaluation Review Comments: Nutrition Recommendation: 1) [facility] + renal standard diet 2) Pro-stat 1 pk BID 3) Nephro-nellie 1 tab daily 4) Monitor PO intake, lab values, weight trend, and I/O Expected Outcomes/Goals: Wound to improve Intake to meet >75% estimated needs FU 3-5 days LC POLO MD Oct 13, 2025 15:13
--- NOTE | 2025-10-13 17:35 | DVHPNRES ---
Progress Note Date Seen: Oct 13, 2025 Resident Creating Document: YOBANI GOETZ RESIDENT Has the PT tested + for MRSA If YES, has PT been informed?: No Medical Necessity Reason Pt with a Central, PICC or Fol: Yes The following are medically ne: Central Line, Rosales Catheter Reason for rosales catheter: Strict I&O Subjective Review of Systems Mr. Zamora is a 59 year old male with PMHx of ESRD with recent initiation of dialysis approximately 2 weeks ago , HFrEF with pacemaker placement, CVA in 2012, type 2 diabetes mellitus, gout, and hypertension, who presented to [facility] due to witnessed cardiopulmonary arrest during dialysis on 09/26/2025. At the time of evaluation the patient is sedated and intubated, majority of history is taken from previous medical record and his sister, Claudia Burnett. Per record, the patient became unresponsive during hemodialysis, CPR was intiated by bystanders and AED was used, by the time EMS arrived on scene the patient was found A&Ox4, GCS15, and moaning in pain. On evaluation in the ED, patient was complaining of dyspnea and chest wall pain. He was afebrile, normocardic with pacedc rhythm, hypertensive, and saturating adequately on room air. EKG showed paced rhythm with widened QTc. Initial labs are significant for normocytic anemia, hypokalemia, creatinine 6.85, BUN 43, and BNP 1232.11. Troponins were negative. UA without alteration. Chest xray significant for lungs with bilateral patchy airspace opacities, prominent pulmonary vasculature, with small bilateral pleural effusions. Head CT shows bilateral cerebral encephalomalacia and mild global cerebral volume loss without intracranial hemorrhage or mass effect. The patient was started on IV diuresis and admitted for further work up and managment. He was evaluated by cardiology who continued diuresis. The patient was evaluated by nephrology who state that given diminished cardiac function likely patient cannot tolerate large ultrafiltration goals. He was scheduled for further dialysis, having undergone dialysis on 09/28/2025 without issue. He was receiving dialysis on 10/01/2025 when he became bradycardic and went into asystole. Code blue was called and CPR was intiated with ROSC achieved after 7 minutes of CPR. He was transferred to the ICU and he entered asystole two more times in a span of 15 minutes a with ROSC achieved after 11 minutes of CPR and at 2 minutes of CPR respectively. He was intubated and started on pressors, sedation, antibiotics, and bicarbonate drip. On initial evaluation in the ICU, the patient is intubated, sedated, and mechanically ventilated, on levophed 2 mcg, pupils are reactive, no response to painful stimulus, cough and gag are present. Labs are significant for normocytic anemia, worsening thrombocytopenia, and worsening renal function. ABG is significant for metabolic alkalosis. Most recent chest xray shows worsening congestion. Past medical history: ESRD on dialysis, HFrEF, CVA in 2012, Type 2 diabetes mellitus, and hypertension Past surgical history: Pacemaker placement and replacement, Right femoral fracture repair Allergies: Denies Social: Per sister, the patient currently smokes marijuana, denies other drug use. Patient currently lives with his mother and his brother. Home meds: Famotidine, Allopurinol, pregabalin, furosemide, sevelamer, metoprolol, and lokelma : Patient seen and examined at bedside. Started patient on gentamicin per pharmacy. Unable to complete MRI brain as pacemaker leads not compatible with MRI per [employer]. Infectious Disease consult. Decreased FiO2. 10/13/2025: Patient seen and examined at bedside. Discontinued all antibiotics per Infectious Disease recommendation. PICC line orders as per nephrology in order to discontinue femoral TLC. Precedex at 0.3. Left voicemail for next of kin Lilian Zamora at [phone]. Detailed conversation held with patient's sister at [phone], she would prefer extubation with a possibility of re- intubation if respiratory distress persists. Patient's sister like to come in tomorrow and have a discussion with Dr. Bautista Objective vital signs Vital Sign Date Time Temp Pulse Resp B/P (MAP) Pulse Ox O2 Delivery O2 Flow Rate FiO2 10/13/25 15:45 78 23 140/61 (87) 100 40 10/13/25 14:00 Mechanical Ventilator+ 10/13/25 12:00 98.1 98.1 Total Intake and Output 10/12/25 10/12/25 10/13/25 15:00 23:00 07:00 Intake Total 182.625 ml 412.160 ml 539.130 ml Output Total 75 ml 200 ml Balance 182.625 ml 337.160 ml 339.130 ml medications Current Medications Medications Dose Ordered Sig/Esteban Route Start Time Stop Time Status Last Admin Dose Admin Diagnostic Test (Pha) 1 strip ACHS 09/26/25 22:00 10/13/25 11:23 1 STRIP Insulin Human Regular ACHS SC 09/26/25 22:00 10/13/25 06:41 2 UNITS Dextrose 50 ml UD PRN IV 09/26/25 21:15 Sodium Chloride 10 ml Q8HR IV 09/26/25 22:00 10/13/25 14:00 10 ML Sevelamer HCl 800 mg TIDWM PO 09/29/25 18:00 10/12/25 17:37 800 MG Amino Acid Protein 30 ml BID PO 09/30/25 22:00 10/12/25 21:25 30 ML Multivit/Ca Carb/ B Cmplx/FA/Prenat 1 tab DAILY PO 09/30/25 11:12 10/12/25 12:19 1 TAB Epinephrine HCl 250 ml @ 7.5 mls/hr Q24H IV 10/01/25 15:15 10/01/25 15:39 15 MLS/HR Norepinephrine Bitartrate 250 ml @ 3.75 mls/hr Q24H IV 10/01/25 15:15 10/06/25 09:44 3.75 MLS/HR Albumin Human 100 ml @ 100 mls/hr ANABELLA PRN IV 10/03/25 09:45 10/07/25 17:42 100 MLS/HR Aspirin 81 mg DAILY NG 10/05/25 10:00 10/13/25 10:17 81 MG Enteral Nutritional Formula 1,000 ml 40ML/HR GT 10/04/25 18:30 10/13/25 03:51 1,000 ML Famotidine 10 mg HS IV 10/07/25 22:00 10/12/25 21:14 10 MG Albuterol 2.5 mg Q6HR NEB 10/08/25 12:00 10/13/25 11:51 2.5 MG Ipratropium [place] 0.5 mg Q6HR NEB 10/08/25 12:00 10/13/25 11:51 0.5 MG Artificial Tears 2 drop Q2HP PRN EACHEYE 10/08/25 14:30 Propofol 100 ml @ 3.966 mls/ hr Q24H IV 10/08/25 19:00 10/08/25 21:58 7.932 MLS/HR Levetiracetam 100 ml @ 400 mls/hr BID IV 10/11/25 22:00 10/13/25 10:16 400 MLS/HR Lorazepam 1 mg Q5MINP PRN IV 10/11/25 21:00 Epoetin Mohan-epbx 10,000 unit MWF@2100 SC 10/12/25 21:00 10/12/25 21:11 10,000 UNIT Gentamicin Sulfate 0 ml @ 0 mls/hr PER PHARMACY IV 10/12/25 18:15 Cancel Examination General: Patient is intubated, mechanically ventilated, non-reactive to painful stimulus HEENT: Normocephalic, atraumatic, 3 mm very sluggish, no EOM, eyes open and moving, unable to track objects, ET tube in place, orogastric tube in palce Respiratory/pulmonary: Bilateral chest expansion, decreased breath sounds bilaterally, wheezing in bilateral upper lobes Cardiovascular: Normal RRR Abdomen: Obese, Abdomen nondistended, normal bowel sounds no grimacing is observed on palpation, no palpable masses. Extremities: No deformities, bilateral lower extremity pedal edema 2+ up to upper thighs, with scrotal swelling, large red circular ulcers present in right calf, presence of femoral CVC in right groin region, pulses are present, blisters present on left forearm. Left lower extremity superficial ulcer on the lateral aspect of the leg. Right lower extremity 2 superficial ulcers 1 on the medial leg and 1 on the dorsal foot. Skin: Saccrococcyx 2.5x1.2x0.5cm, moist, open, full-thickness wound with moist red granulation tissue in the wound base and a mix of pale pink collagen scar tissue and dark brown adhered eschar material on the periwound area, there is minimal odor., darkened eschar lesions on his toes Neurological: hypoactive Gag and cough noted, patient blinks but does not track movements with his eyes, does not respond to verbal commands, no response to painful stimulus. Penile ulcer noted under the foreskin laboratory and microbiology Laboratory Tests 10/13/25 02:30 Test 10/13/25 02:30 Range/Units Serum Glucose 126 H 74-106 mg/dL Microbiology Date/Time Source Procedure Growth Status 10/08/25 22:28 Urine - Rosales Port Urine Culture - Final Complete 10/06/25 13:00 Sacrum Gram Stain - Final Resulted 10/06/25 13:00 Wound Culture - Preliminary Enterobacter cloacae Enterococcus faecalis - VRE Resulted 10/02/25 17:33 Blood Blood Culture - Final NO GROWTH AFTER 5 DAYS OF INCUBATION. Complete Labs and/or images reviewed: Labs reviewed by me, Image(s) reviewed by me Problem List/Assessment/Plan Problem List/Assessment/Plan Neurology # Sedated - Precedex at 0.3 mg # Encephalomalacia - Head CT 09/26/2025: Bilateral cerebral encephalomalacia # Global cerebral volume loss - Head CT 09/26/2025: Mild global cerebral volume loss # epilepsy - Oxycarbazepine - held # Concern for anoxic brain injury - Head CT 10/06/25: No acute intracranial hemorrhage or mass effect.Age indeterminate small infarct involving the right cerebellum, favored to be chronic. If there is clinical concern for acute infarct, recommend MRI for further evaluation.Chronic bilateral parietal and occipital lobe infarcts. - Despite being off sedation for 48 hours, patient still has no meaningful neurologic response. . Neurology has been consulted - unable to obtain MRI as per [employer] pacemaker leads are older generation and not MRI compatible. #History of CVA in 201210/10/25 CT head negative for acute process. - Neurology consult - Off sedation since 10/08 Cardiovascular #S/p Cardiac arrest with ROSC - 09/26/2025: Witnessed at dialysis center, bystanders started CPR and AED use, ROSC achieved before EMS arrived - 10/01/2025: Rhythm: Asystole, ROSC achieved after 7 minutes of CPR - 10/01/2025: Rhythm: Asystole, ROSC achieved after 11 minutes of CPR - 10/01/2025: Rhythm: Asystole, ROSC achieved after 2 minutes of CPR # Cardiogenic shock # Lactic acidosis likely due to above - Cultures are pending - Levophed 2 mcg - Epinephrine has been discontinued # Acute on chronic HFrEF - BNP 1232.11 - Echocardiogram 08/22/2025: LVEF of 20-25%, Severe LV dysfunction, moderate mitral regurgitation - Per cardiology: Diuretics with lasix, aspirin, nitroglycerin SL - Lasix 40 mg IV daily - S/p pacemaker placement # Bilateral pleural effusion - Chest xray 10/12/2025: No significant interval change. #Hypertension - Amlodipine held by nephrology Respiratory # Acute hypoxic hypercapnic respiratory failure # Ventilator -Intubated (10/01/2025) -On [facility] vent : VCAC Mode RR 18 TV 450ml, PEEP Of 8 and FiO2 of 4045% - 8.0 endotracheal tube, 24 at the lip - Cutlures from sputum: Normal orophargyngeal elpidio GI # Peptic ulcer prophylaxis -Pantoprazole 40 mg IV daily # Rosales catheter draining clear urine placed on 10/09/2025 Nephrology # ESRD on hemodialysis - Received dialysis without complication and without pressor support on 10/13/2025 with 2 L removed - Strict Is and Os # Severe diabetic nephropathy #Acute metabolic alkalosis # Secondary hyperparathyroidism # Hypocalcemia - Monitor - Calcitrol # Hyperphosphatemia - Phosphate binders Infectious disease # 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 # Possible cellulitis secondary to lower extremity ulcers, , leg wound growing E coli # Complicated UTI growing MDR cloacae, VRE - IV linezolid - started patient on IV gentamicin per pharmacy - consulted infectious disease; per ID to discontinue systemic antibiotics likely colonization #Septic vs Cardiogenic shock - blood Cultures: Negative at 72 hours - Ceftriaxone 1 g IV daily, now discontinue Hem/onc #Thrombocytopenia, improved - Monitor #Normocytic anemia, likely due to chronic disease - Monitor Hand H - Per nephrology: Epogen 19256 SQ 3 weekly as tolerated Endocrine #Type 2 diabetes mellitus - SSI -Accu cheks MSK # Gout - Allopurinol 300 mg PO daily Skin # Circular ulcers present on right leg, present on admission # Possible Sacral Ulcer stage 2, present on admission - Wound culture: VRE - Meropenem 500 mg daily, discontinued - Linezolid 600 mg IV q 12 hours Marijuana use DVT prophylaxis: SCD PUD prophylaxis: Pantoprazole 40 mg IV daily Lines -R femoral central line: 10/01/2025 -Rosales catheter 10/09/2025 -ET tube: 10/01/2025 - Tunneled catheter in right pectoral region Patient has right femoral line given the presence of right tunnel catheter in right pectoral region and pacemaker in left field. We will give the patient more time for sedation to wear off for accurate neurological evaluation. Drips during [facility] ventilation Fentanyl Discontinued Propofol: dc'ed Bicarbonate drip discontinued Levophed discontinued Critical care time 63 minutes excluding procedure. Code status discussed greater than 20 minutes: Full CODE STATUS. Family at bedside explained about the condition of the patient Plan discussed with Dr. Bautista Plan discussed with: Other (Sister, RN) My Orders My Orders Orders - YOBANI GOETZ RESIDENT Procedure Category Date Status Time Chest Portable XY 10/13/25 Resulted 04:00 Abg W/ Co-Ox RT 10/13/25 Logged 04:00 Gentamicin Per NIXON 10/12/25 In Process Pharmacy Protco 18:21 Dietary Evaluation Review Comments: Nutrition Recommendation: 1) CCHO 75gm + renal standard diet 2) Pro-stat 1 pk BID 3) Nephro-nellie 1 tab daily 4) Monitor PO intake, lab values, weight trend, and I/O Expected Outcomes/Goals: Wound to improve Intake to meet >75% estimated needs FU 3-5 days Visit Coding STANDARD RES Billing Provider: ANANT BAUTISTA MD Date of Service if different f: Oct 13, 2025 Common Visit Codes: 53731-TGMTRANJ CARE 30-74 MIN YOBANI GOETZ Oct 13, 2025 17:35 ANANT BAUTISTA MD Oct 14, 2025 14:56
[2025-10-13 17:37] LABS: INR 1.05 (0.9-1.15); Partial Thromboplastin Time 25.3 SEC (24.5-34.5); Prothrombin Time 11.1 sec (9.3-11.8)
--- NOTE | 2025-10-13 19:01 | DVH ---
TECHNIQUE: Real-time ultrasound imaging, with color Doppler and compression of the bilateral upper extremity veins. INDICATION: SWELLING COMPARISON: None FINDINGS: There is a right internal jugular central venous catheter. There is thrombus around the catheter that appears partially occlusive. The right subclavian, axillary veins demonstrate no filling defect. The right cephalic vein is noncompressible without significant color flow. The right brachial, basilic veins demonstrate compressibility. The right radial vein demonstrates color flow. Right ulnar vein demonstrates color flow. Left internal jugular vein, left subclavian vein demonstrate color flow. Left axillary vein demonstrates color flow and compressibility. Left cephalic vein noncompressible without color flow. The left brachial vein is compressible and demonstrates color flow. Left basilic vein compressible and demonstrates partially occlusive peripheral thrombus. Left ulnar and radial veins demonstrate color flow. IMPRESSION: Partially occlusive deep vein thrombus surrounding the right internal jugular central venous catheter. Superficial vein thrombus within the right cephalic vein that is occlusive. Superficial vein thrombus within the left cephalic vein that is occlusive. Partially occlusive left basilic vein thrombus.
--- NOTE | 2025-10-13 23:24 | DVHPN2 ---
Progress Note - Dictate Date Seen: Oct 13, 2025 Has the PT tested + for MRSA If YES, has PT been informed?: No Medical Necessity Reason Pt with a Central, PICC or Fol: Yes The following are medically ne: Central Line, Rosales Catheter Reason for rosales catheter: Strict I&O Subjective Patient was seen and evaluated in follow up in the ICU. Patient is intubated and sedated on ventilator. 40% FiO2. His eyes are closed, he is responsive to light touch, but not to verbal stimuli, he moves the right leg only. HGB 8.1, HCT 25.9, BUN 45, INSTALLATION ENGINEER 5.26. Chest x-ray is unchanged. vital signs Vital Sign Date Time Temp Pulse Resp B/P (MAP) Pulse Ox O2 Delivery O2 Flow Rate FiO2 10/13/25 13:30 75 18 140/61 (87) 100 10/13/25 12:00 Mechanical Ventilator+ 40 40 10/13/25 12:00 98.1 98.1 Total Intake and Output 10/12/25 10/12/25 10/13/25 15:00 23:00 07:00 Intake Total 182.625 ml 412.160 ml 539.130 ml Output Total 75 ml 200 ml Balance 182.625 ml 337.160 ml 339.130 ml medications Current Medications Medications Dose Ordered Sig/Esteban Route Start Time Stop Time Status Last Admin Dose Admin Diagnostic Test (Pha) 1 strip ACHS 09/26/25 22:00 10/13/25 11:23 1 STRIP Insulin Human Regular ACHS SC 09/26/25 22:00 10/13/25 06:41 2 UNITS Dextrose 50 ml UD PRN IV 09/26/25 21:15 Sodium Chloride 10 ml Q8HR IV 09/26/25 22:00 10/13/25 06:05 10 ML Sevelamer HCl 800 mg TIDWM PO 09/29/25 18:00 10/12/25 17:37 800 MG Amino Acid Protein 30 ml BID PO 09/30/25 22:00 10/12/25 21:25 30 ML Multivit/Ca Carb/ B Cmplx/FA/Prenat 1 tab DAILY PO 09/30/25 11:12 10/12/25 12:19 1 TAB Epinephrine HCl 250 ml @ 7.5 mls/hr Q24H IV 10/01/25 15:15 10/01/25 15:39 15 MLS/HR Norepinephrine Bitartrate 250 ml @ 3.75 mls/hr Q24H IV 10/01/25 15:15 10/06/25 09:44 3.75 MLS/HR Albumin Human 100 ml @ 100 mls/hr ANABELLA PRN IV 10/03/25 09:45 10/07/25 17:42 100 MLS/HR Aspirin 81 mg DAILY NG 10/05/25 10:00 10/13/25 10:17 81 MG Enteral Nutritional Formula 1,000 ml 40ML/HR GT 10/04/25 18:30 10/13/25 03:51 1,000 ML Famotidine 10 mg HS IV 10/07/25 22:00 10/12/25 21:14 10 MG Albuterol 2.5 mg Q6HR NEB 10/08/25 12:00 10/13/25 11:51 2.5 MG Ipratropium [place] 0.5 mg Q6HR NEB 10/08/25 12:00 10/13/25 11:51 0.5 MG Artificial Tears 2 drop Q2HP PRN EACHEYE 10/08/25 14:30 Propofol 100 ml @ 3.966 mls/ hr Q24H IV 10/08/25 19:00 10/08/25 21:58 7.932 MLS/HR Linezolid 300 ml @ 150 mls/hr Q12H IV 10/10/25 16:15 10/13/25 04:45 150 MLS/HR Levetiracetam 100 ml @ 400 mls/hr BID IV 10/11/25 22:00 10/13/25 10:16 400 MLS/HR Lorazepam 1 mg Q5MINP PRN IV 10/11/25 21:00 Epoetin Mohan-epbx 10,000 unit MWF@2100 SC 10/12/25 21:00 10/12/25 21:11 10,000 UNIT Gentamicin Sulfate 0 ml @ 0 mls/hr PER PHARMACY IV 10/12/25 18:15 objective GENERAL: Ill appearing, intubated on ventilator. Morbidly obese. EYES: PERRL, EOMI. Anicteric. HENT: Moist mucous membranes. LUNGS: Decreased breath sounds. CARDIOVASCULAR: Regular rate and rhythm. ABDOMEN: Soft, non-tender and non-distended. EXTREMITIES: No edema. SKIN: Warm, dry. laboratory and microbiology Laboratory Tests 10/13/25 02:30 Test 10/13/25 02:30 Range/Units Serum Glucose 126 H 74-106 mg/dL Problem List Acute syncopal episode. Status post cardiac arrest x3. ESRD on hemodialysis. Hypertension. Peripheral neuropathy. Severe peripheral artery disease. Acute on chronic congestive heart failure exacerbation. History of CVA. Anemia of chronic disease. Diabetes with severe diabetic nephropathy. History of pacemaker. Morbidly obese. Decompensated heart failure with ejection fraction less than 25%. Encephalomalacia. Hyperphosphatemia. Hyperparathyroidism. Assessment/Plan Continued all current supportive medical care. Aspirin. IV antibiotics as ordered. Morphine and [place] for pain management. Vasopressors for hemodynamic support. Additional plan as per the hospital course. Critical care time of 45 minutes provided to include time spent evaluation of patient at bedside, when appropriate patient/family education for diagnosis, treatment plan, review of pertinent medical information and discussion of care with specialty providers and PCP. Mechanical ventilator parameters, treatment and adjustments have personally been reviewed by me and treatment plan by home health nurse licensed practical has also been reviewed. Dietary Evaluation Review Comments: Nutrition Recommendation: 1) CCHO 75gm + renal standard diet 2) Pro-stat 1 pk BID 3) Nephro-nellie 1 tab daily 4) Monitor PO intake, lab values, weight trend, and I/O Expected Outcomes/Goals: Wound to improve Intake to meet >75% estimated needs FU 3-5 days Plan discussed with: MATTHEW Sneed MD Oct 13, 2025 13:56
[2025-10-14] VITALS (105 sets, daily range): BP systolic 127–163; BP diastolic 52–92; PULSE 65–119; RESP 10–24; TEMP 97.6–99.2; O2SAT 98–100
--- NOTE | 2025-10-14 00:03 | DVHEEG2 ---
Neurology EEG Procedural Note Procedural Note EXAM DATE: 10/12/2025 REFERRING DOCTOR: Dr. Muñoz TECHNIQUE: Eighteen channels of EEG, 2 channels of EOG, and 1 channel of EKG were recorded using the International 10/20 system. CLINICAL DATA: The patient was referred for an EEG evaluation for the evidence of seizure disorder. MEDICATIONS: See the chart BACKGROUND ACTIVITY: The record showed diffuse low to medium amplitude mixed delta theta polymorphic waveforms over both hemispheres, that was reactive to external stimuli. Intermixed with this was a few spikes, sharp waves over the right hemisphere, with phase reversal at T4, F4 ACTIVATION: Hyperventilation: Not done Photic Stimulation: Not done Sleep: Not seen IMPRESSION: This is a moderately abnormal EEG, this EEG is seen in moderate cerebral dysfunction due to metabolic/hypoxic encephalopathy or medication effect, please correlate clinically. The sharp and spikes over the right hemisphere considered epileptiform in nature, please correlate clinically. The EKG channel showed a regular heart rate of 72/min. [place] [address] PETER MUÑOZ MD Oct 14, 2025 00:03
[2025-10-14 03:03] LABS: Hematocrit 27.8 % (41.0-53.0); Hemoglobin 8.9 g/dL (13.5-17.5); Mean Corpuscular Hemoglobin 31.7 pg (28.0-32.0); Mean Corpuscular Volume 99.0 fL (80.0-100.0); Nucleated Red Blood Cells % 0.2 %
[2025-10-14 03:21] LABS: Anion Gap 12 (5-15); Carbon Dioxide 28 mmol/L (20-31); Chloride 100 mmol/L (98-107); Potassium 3.8 mmol/L (3.5-5.1); Sodium 140 mmol/L (136-145)
[2025-10-14 03:23] LABS: Calcium 9.0 mg/dL (8.7-10.4)
[2025-10-14 03:27] LABS: BUN/Creatinine Ratio 7.1 (10.0-20.0)
[2025-10-14 03:29] LABS: Blood Urea Nitrogen 38 mg/dL (9-23); Glucose 112 mg/dL (74-106)
--- NOTE | 2025-10-14 06:35 | DVH ---
CHEST RADIOGRAPH INDICATION: sob TECHNIQUE: Single frontal view of the chest was obtained COMPARISON: XY CHEST PORTABLE on DOS: 10/13/25, XY CHEST XRAY 1 VIEW on DOS: 10/12/25, XY CHEST PORTABLE on DOS: 10/11/25, XY CHEST XRAY 1 VIEW on DOS: 10/10/25, XY CHEST PORTABLE on DOS: 10/09/25 FINDINGS: Lines and Tubes: Unchanged. Lungs: Stable appearing diffuse Increased prominence of the pulmonary vasculature. Right basilar atelectasis. Small bilateral pleural effusions. No pneumothorax. Cardiomediastinal contours: Cardiomegaly. Bones: Unremarkable IMPRESSION: 1. Stable appearing pulmonary vascular congestion, small bilateral pleural effusions and cardiomegaly. 2. Lines and tubes unchanged.
[2025-10-14] MEDS: SODIUM CHL 0.9% 1000 ML BAG XX ONE (07:00)
[2025-10-14 07:38] LABS: Base Excess 3.4 mmol/L (-2.0-3.0)
--- NOTE | 2025-10-14 10:40 | DVHPN2 ---
Progress Note - Dictate Date Seen: Oct 14, 2025 Has the PT tested + for MRSA If YES, has PT been informed?: No Medical Necessity Reason Pt with a Central, PICC or Fol: Yes The following are medically ne: Central Line, Rosales Catheter Reason for rosales catheter: Strict I&O Subjective Mr. Zamora is a right-handed gentleman with a history of hypertension, diabetes, coronary artery disease, congestive heart failure, chronic kidney failure, chronic leg edema, obesity, stroke, RLS, he was brought to the [facility] on 09/26/2025 with a chief complaint of cardiopulmonary arrest. I saw him on 01/18/2024 for seizure activity I have seen and examined the patient, I have talked to his nurse and other medical staff, he open his eyes to my voice, but he does not not track, or follow any verbal commands, he is on move his arms and legs for me Urinalysis, 10/08/2025: WBC: 1809, urine leukocyte esterase: 3+ ABG, 10/01/2025: Respiratory acidosis WBC/HB/PLT/MCV, 10/11/2025: 7/8/166/97.4 BUN/CR, 10/11/2025: 57/6.09 GFR, 10/11/2025: 10 HGB A1c, 08/17/2025: 7.4 Liver function tests, 10/11/2025: Unremarkable TG/HDL/LDL/HDL, 01/14/2024: 77/162/103/48 EEG, 10/12/2025: This is a moderately abnormal EEG with epileptiform discharges Chest x-ray, 10/01/2025: 1. Endotracheal tube tip projects at the level of the tiburcio. Recommend retraction by 2 cm. 2. Remaining Lines and tubes as above. 3. Moderate multifocal bilateral pulmonary airspace disease and pulmonary vascular congestion Chest x-ray, 10/11/2025: Endotracheal tube, enteric catheter in satisfactory position. Right tunneled central venous catheter and left chest wall pacemaker, unchanged. CT head, 10/10/2025: 1. No acute intracranial abnormality. 2. 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 3. Likely chronic right cerebellar infarct vital signs Vital Sign Date Time Temp Pulse Resp B/P (MAP) Pulse Ox O2 Delivery O2 Flow Rate FiO2 10/14/25 07:41 105 24 155/75 (101) 100 40 10/14/25 06:00 Mechanical Ventilator+ 10/14/25 04:00 98.6 98.6 Total Intake and Output 10/13/25 10/13/25 10/14/25 15:00 23:00 07:00 Intake Total 185.020 ml 33.050 ml 228.220 ml Output Total 125 ml 200 ml Balance 185.020 ml -91.950 ml 28.220 ml medications Current Medications Medications Dose Ordered Sig/Esteban Route Start Time Stop Time Status Last Admin Dose Admin Diagnostic Test (Pha) 1 strip ACHS 09/26/25 22:00 10/14/25 06:49 1 STRIP Insulin Human Regular ACHS SC 09/26/25 22:00 10/13/25 21:05 2 UNITS Dextrose 50 ml UD PRN IV 09/26/25 21:15 Sodium Chloride 10 ml Q8HR IV 09/26/25 22:00 10/14/25 05:22 10 ML Sevelamer HCl 800 mg TIDWM PO 09/29/25 18:00 10/14/25 08:24 800 MG Amino Acid Protein 30 ml BID PO 09/30/25 22:00 10/14/25 10:08 30 ML Multivit/Ca Carb/ B Cmplx/FA/Prenat 1 tab DAILY PO 09/30/25 11:12 10/14/25 10:07 1 TAB Epinephrine HCl 250 ml @ 7.5 mls/hr Q24H IV 10/01/25 15:15 10/01/25 15:39 15 MLS/HR Norepinephrine Bitartrate 250 ml @ 3.75 mls/hr Q24H IV 10/01/25 15:15 10/06/25 09:44 3.75 MLS/HR Albumin Human 100 ml @ 100 mls/hr ANABELLA PRN IV 10/03/25 09:45 10/07/25 17:42 100 MLS/HR Aspirin 81 mg DAILY NG 10/05/25 10:00 10/14/25 10:07 81 MG Enteral Nutritional Formula 1,000 ml 40ML/HR GT 10/04/25 18:30 10/13/25 03:51 1,000 ML Famotidine 10 mg HS IV 10/07/25 22:00 10/13/25 21:04 10 MG Albuterol 2.5 mg Q6HR NEB 10/08/25 12:00 10/14/25 00:15 2.5 MG Ipratropium [place] 0.5 mg Q6HR NEB 10/08/25 12:00 10/14/25 00:15 0.5 MG Artificial Tears 2 drop Q2HP PRN EACHEYE 10/08/25 14:30 Propofol 100 ml @ 3.966 mls/ hr Q24H IV 10/08/25 19:00 10/08/25 21:58 7.932 MLS/HR Levetiracetam 100 ml @ 400 mls/hr BID IV 10/11/25 22:00 10/14/25 10:07 400 MLS/HR Lorazepam 1 mg Q5MINP PRN IV 10/11/25 21:00 Epoetin Mohan-epbx 10,000 unit MWF@2100 SC 10/12/25 21:00 10/12/25 21:11 10,000 UNIT Gentamicin Sulfate 0 ml @ 0 mls/hr PER PHARMACY IV 10/12/25 18:15 Cancel objective The patient is well-nourished and well-developed with no distress. The patient is intubated Superficial skin lesions of different ages in the feet MENTAL STATUS: Subjective CRANIAL NERVES: Pupils are equal, round and reactive. Possible conjugated eye movement, he blinks. No signs of facial weakness. There are gagging or coughing reflexes SENSATION: No responses to pain stimuli. MOTOR: Normal tone in the upper and lower extremity. Normal muscle bulk. No fasciculations. Subjective REFLEXES: Deep tendon reflexes are symmetrical. No pathological reflexes. CEREBELLAR/COORDINATION: Deferred GAIT/STATION: deferred. laboratory and microbiology Laboratory Tests 10/14/25 02:41 Test 10/14/25 02:41 Range/Units Serum Glucose 112 H 74-106 mg/dL Problem List Altered mental status Hypoxic encephalopathy Metabolic encephalopathy Cardiopulmonary arrest Status post CPR Chronic multiple strokes Grand mal seizure Diabetic polyneuropathy Restless leg syndrome Wound/wound infection Assessment/Plan Monitoring Supportive treatment ICU care Follow-up lab Stabilize vitals Respiratory support/vent management IV antibiotics Aspirin 81 mg daily Keppra 500 mg b.i.d. IV for now, back to Trileptal 450 mg b.i.d. later [facility] More recommendation per clinical course This medical document was created using an electronic medical record system with Etherpad dictation system. Although this document has been carefully reviewed, there may still be some phonetic and typographical errors. These areas are purely typographical due to imperfections of the software programs, and do not reflect any compromise in the patient's medical care. Prognosis poor Dietary Evaluation Review Comments: Nutrition Recommendation: 1) CCHO 75gm + renal standard diet 2) Pro-stat 1 pk BID 3) Nephro-nellie 1 tab daily 4) Monitor PO intake, lab values, weight trend, and I/O Expected Outcomes/Goals: Wound to improve Intake to meet >75% estimated needs FU 3-5 days Plan discussed with: Other PETER MUÑOZ MD Oct 14, 2025 10:40
--- NOTE | 2025-10-14 14:23 | DVHPN2 ---
Progress Note Date Seen: Oct 14, 2025 Has the PT tested + for MRSA If YES, has PT been informed?: No Medical Necessity Reason Pt with a Central, PICC or Fol: Yes The following are medically ne: Central Line, Rosales Catheter Reason for rosales catheter: Strict I&O Subjective Review of Systems: NEURO:Abnormal Objective vital signs Vital Sign Date Time Temp Pulse Resp B/P (MAP) Pulse Ox O2 Delivery O2 Flow Rate FiO2 10/14/25 11:30 97 18 145/66 (92) 99 10/14/25 10:00 Mechanical Ventilator+ 40 40 10/14/25 08:00 97.6 97.6 Total Intake and Output 10/13/25 10/13/25 10/14/25 15:00 23:00 07:00 Intake Total 185.020 ml 33.050 ml 228.220 ml Output Total 125 ml 200 ml Balance 185.020 ml -91.950 ml 28.220 ml medications Current Medications Medications Dose Ordered Sig/Esteban Route Start Time Stop Time Status Last Admin Dose Admin Diagnostic Test (Pha) 1 strip ACHS 09/26/25 22:00 10/14/25 11:38 1 STRIP Insulin Human Regular ACHS SC 09/26/25 22:00 10/13/25 21:05 2 UNITS Dextrose 50 ml UD PRN IV 09/26/25 21:15 Sodium Chloride 10 ml Q8HR IV 09/26/25 22:00 10/14/25 05:22 10 ML Sevelamer HCl 800 mg TIDWM PO 09/29/25 18:00 10/14/25 14:15 800 MG Amino Acid Protein 30 ml BID PO 09/30/25 22:00 10/14/25 10:08 30 ML Multivit/Ca Carb/ B Cmplx/FA/Prenat 1 tab DAILY PO 09/30/25 11:12 10/14/25 10:07 1 TAB Epinephrine HCl 250 ml @ 7.5 mls/hr Q24H IV 10/01/25 15:15 10/01/25 15:39 15 MLS/HR Norepinephrine Bitartrate 250 ml @ 3.75 mls/hr Q24H IV 10/01/25 15:15 10/06/25 09:44 3.75 MLS/HR Albumin Human 100 ml @ 100 mls/hr ANABELLA PRN IV 10/03/25 09:45 10/07/25 17:42 100 MLS/HR Aspirin 81 mg DAILY NG 10/05/25 10:00 10/14/25 10:07 81 MG Enteral Nutritional Formula 1,000 ml 40ML/HR GT 10/04/25 18:30 10/14/25 14:15 1,000 ML Famotidine 10 mg HS IV 10/07/25 22:00 10/13/25 21:04 10 MG Albuterol 2.5 mg Q6HR NEB 10/08/25 12:00 10/14/25 12:15 2.5 MG Ipratropium [place] 0.5 mg Q6HR NEB 10/08/25 12:00 10/14/25 12:15 0.5 MG Artificial Tears 2 drop Q2HP PRN EACHEYE 10/08/25 14:30 Propofol 100 ml @ 3.966 mls/ hr Q24H IV 10/08/25 19:00 10/08/25 21:58 7.932 MLS/HR Levetiracetam 100 ml @ 400 mls/hr BID IV 10/11/25 22:00 10/14/25 10:07 400 MLS/HR Lorazepam 1 mg Q5MINP PRN IV 10/11/25 21:00 Epoetin Mohan-epbx 10,000 unit MWF@2100 SC 10/12/25 21:00 10/12/25 21:11 10,000 UNIT Gentamicin Sulfate 0 ml @ 0 mls/hr PER PHARMACY IV 10/12/25 18:15 Cancel Examination: GENERAL:Abnormal, LUNGS:Abnormal, SKIN:Abnormal, NEURO:Abnormal laboratory and microbiology Laboratory Tests 10/14/25 02:41 Test 10/14/25 02:41 Range/Units Serum Glucose 112 H 74-106 mg/dL Microbiology Date/Time Source Procedure Growth Status 10/08/25 22:28 Urine - Rosales [place] Urine Culture - Final Complete 10/06/25 13:00 Sacrum Gram Stain - Final Resulted 10/06/25 13:00 Wound Culture - Preliminary Enterobacter cloacae Enterococcus faecalis - VRE Resulted 10/02/25 17:33 Blood Blood Culture - Final NO GROWTH AFTER 5 DAYS OF INCUBATION. Complete Problem List/Assessment/Plan Problem List/Assessment/Plan End-stage renal disease on hemodialysis Acute respiratory failure, patient intubated on ventilator Status post cardiac arrest x3 Decompensated heart failure with ejection fraction less than 25% Diabetes with severe diabetic nephropathy Severe peripheral artery disease Anemia of chronic kidney disease Encephalomalacia Hyperphosphatemia Hyperparathyroidism, secondary Hd today cautious fluid removal opens eyes today but did not visually track, continue neuro checks fluid removal as tolerated avoid hypotension neuro checks, neurology on case rest of care per critical care and primary Plan discussed with: Other My Orders My Orders Orders - VAISHALI SAMAYOA MD Procedure Category Date Status Time Hemodialysis Orders ORDERS 10/14/25 Transmitted 07:00 Dialysis Nursing [facility] 10/14/25 In Process Message 07:00 Document Fluid Input [facility] 10/14/25 In Process And Outpu 07:00 Dietary Evaluation Review Comments: Nutrition Recommendation: 1) CCHO 75gm + renal standard diet 2) Pro-stat 1 pk BID 3) Nephro-nellie 1 tab daily 4) Monitor PO intake, lab values, weight trend, and I/O Expected Outcomes/Goals: Wound to improve Intake to meet >75% estimated needs FU 3-5 days VAISHALI SAMAYOA MD Oct 14, 2025 14:23
[2025-10-14] MEDS ORDERED: GLYCOPYRROLATE 0.2 MG/ML 1ML VIAL IV ONE (16:00)
--- NOTE | 2025-10-14 16:02 | DVHPNRES ---
Progress Note Date Seen: Oct 14, 2025 Resident Creating Document: YOBANI GOETZ RESIDENT Has the PT tested + for MRSA If YES, has PT been informed?: No Medical Necessity Reason Pt with a Central, PICC or Fol: Yes The following are medically ne: Central Line, Rosales Catheter Reason for rosales catheter: Strict I&O Subjective Review of Systems Mr. Zamora is a 59 year old male with PMHx of ESRD with recent initiation of dialysis approximately 2 weeks ago , HFrEF with pacemaker placement, CVA in 2012, type 2 diabetes mellitus, gout, and hypertension, who presented to [facility] due to witnessed cardiopulmonary arrest during dialysis on 09/26/2025. At the time of evaluation the patient is sedated and intubated, majority of history is taken from previous medical record and his sister, Claudia Burnett. Per record, the patient became unresponsive during hemodialysis, CPR was intiated by bystanders and AED was used, by the time EMS arrived on scene the patient was found A&Ox4, GCS15, and moaning in pain. On evaluation in the ED, patient was complaining of dyspnea and chest wall pain. He was afebrile, normocardic with pacedc rhythm, hypertensive, and saturating adequately on room air. EKG showed paced rhythm with widened QTc. Initial labs are significant for normocytic anemia, hypokalemia, creatinine 6.85, BUN 43, and BNP 1232.11. Troponins were negative. UA without alteration. Chest xray significant for lungs with bilateral patchy airspace opacities, prominent pulmonary vasculature, with small bilateral pleural effusions. Head CT shows bilateral cerebral encephalomalacia and mild global cerebral volume loss without intracranial hemorrhage or mass effect. The patient was started on IV diuresis and admitted for further work up and managment. He was evaluated by cardiology who continued diuresis. The patient was evaluated by nephrology who state that given diminished cardiac function likely patient cannot tolerate large ultrafiltration goals. He was scheduled for further dialysis, having undergone dialysis on 09/28/2025 without issue. He was receiving dialysis on 10/01/2025 when he became bradycardic and went into asystole. Code blue was called and CPR was intiated with ROSC achieved after 7 minutes of CPR. He was transferred to the ICU and he entered asystole two more times in a span of 15 minutes a with ROSC achieved after 11 minutes of CPR and at 2 minutes of CPR respectively. He was intubated and started on pressors, sedation, antibiotics, and bicarbonate drip. On initial evaluation in the ICU, the patient is intubated, sedated, and mechanically ventilated, on levophed 2 mcg, pupils are reactive, no response to painful stimulus, cough and gag are present. Labs are significant for normocytic anemia, worsening thrombocytopenia, and worsening renal function. ABG is significant for metabolic alkalosis. Most recent chest xray shows worsening congestion. Past medical history: ESRD on dialysis, HFrEF, CVA in 2012, Type 2 diabetes mellitus, and hypertension Past surgical history: Pacemaker placement and replacement, Right femoral fracture repair Allergies: Denies Social: Per sister, the patient currently smokes marijuana, denies other drug use. Patient currently lives with his mother and his brother. Home meds: Famotidine, Allopurinol, pregabalin, furosemide, sevelamer, metoprolol, and lokelma : Patient seen and examined at bedside. Started patient on gentamicin per pharmacy. Unable to complete MRI brain as pacemaker leads not compatible with MRI per [employer]. Infectious Disease consult. Decreased FiO2. 10/13/2025: Patient seen and examined at bedside. Discontinued all antibiotics per Infectious Disease recommendation. PICC line orders as per nephrology in order to discontinue femoral TLC. Precedex at 0.3. Left voicemail for next of kin Lilian Zamora at [phone]. Detailed conversation held with patient's sister at [phone], she would prefer extubation with a possibility of re- intubation if respiratory distress persists. Patient's sister like to come in tomorrow and have a discussion with Dr. Bautista 10/14/2025: Patient seen and examined at bedside, unable to obtain PICC line as left basilic vein thrombus noted. Detailed conversation held with patient's sister at bedside where prognosis was explained, per patient's sister would like to wait until Sunday before deciding for compassionate extubation versus tracheostomy. Objective vital signs Vital Sign Date Time Temp Pulse Resp B/P (MAP) Pulse Ox O2 Delivery O2 Flow Rate FiO2 10/14/25 15:56 100 18 150/70 (96) 100 40 10/14/25 15:49 Mechanical Ventilator+ 10/14/25 08:00 97.6 97.6 Total Intake and Output 10/13/25 10/13/25 10/14/25 15:00 23:00 07:00 Intake Total 185.020 ml 33.050 ml 228.220 ml Output Total 125 ml 200 ml Balance 185.020 ml -91.950 ml 28.220 ml medications Current Medications Medications Dose Ordered Sig/Esteban Route Start Time Stop Time Status Last Admin Dose Admin Diagnostic Test (Pha) 1 strip ACHS 09/26/25 22:00 10/14/25 11:38 1 STRIP Insulin Human Regular ACHS SC 09/26/25 22:00 10/13/25 21:05 2 UNITS Dextrose 50 ml UD PRN IV 09/26/25 21:15 Sodium Chloride 10 ml Q8HR IV 09/26/25 22:00 10/14/25 05:22 10 ML Sevelamer HCl 800 mg TIDWM PO 09/29/25 18:00 10/14/25 14:15 800 MG Amino Acid Protein 30 ml BID PO 09/30/25 22:00 10/14/25 10:08 30 ML Multivit/Ca Carb/ B Cmplx/FA/Prenat 1 tab DAILY PO 09/30/25 11:12 10/14/25 10:07 1 TAB Epinephrine HCl 250 ml @ 7.5 mls/hr Q24H IV 10/01/25 15:15 10/01/25 15:39 15 MLS/HR Norepinephrine Bitartrate 250 ml @ 3.75 mls/hr Q24H IV 10/01/25 15:15 10/06/25 09:44 3.75 MLS/HR Albumin Human 100 ml @ 100 mls/hr ANABELLA PRN IV 10/03/25 09:45 10/07/25 17:42 100 MLS/HR Aspirin 81 mg DAILY NG 10/05/25 10:00 10/14/25 10:07 81 MG Enteral Nutritional Formula 1,000 ml 40ML/HR GT 10/04/25 18:30 10/14/25 14:15 1,000 ML Famotidine 10 mg HS IV 10/07/25 22:00 10/13/25 21:04 10 MG Albuterol 2.5 mg Q6HR NEB 10/08/25 12:00 10/14/25 12:15 2.5 MG Ipratropium Fields 0.5 mg Q6HR NEB 10/08/25 12:00 10/14/25 12:15 0.5 MG Artificial Tears 2 drop Q2HP PRN EACHEYE 10/08/25 14:30 Propofol 100 ml @ 3.966 mls/ hr Q24H IV 10/08/25 19:00 10/08/25 21:58 7.932 MLS/HR Levetiracetam 100 ml @ 400 mls/hr BID IV 10/11/25 22:00 10/14/25 10:07 400 MLS/HR Lorazepam 1 mg Q5MINP PRN IV 10/11/25 21:00 Epoetin Mohan-epbx 10,000 unit MWF@2100 SC 10/12/25 21:00 10/12/25 21:11 10,000 UNIT Gentamicin Sulfate 0 ml @ 0 mls/hr PER PHARMACY IV 10/12/25 18:15 Cancel Examination General: Patient is intubated, mechanically ventilated, non-reactive to painful stimulus HEENT: Normocephalic, atraumatic, 3 mm very sluggish, no EOM, eyes open and moving, unable to track objects, ET tube in place, orogastric tube in palce Respiratory/pulmonary: Bilateral chest expansion, decreased breath sounds bilaterally, wheezing in bilateral upper lobes Cardiovascular: Normal RRR Abdomen: Obese, Abdomen nondistended, normal bowel sounds no grimacing is observed on palpation, no palpable masses. Extremities: No deformities, bilateral lower extremity pedal edema 2+ up to upper thighs, with scrotal swelling, large red circular ulcers present in right calf, presence of femoral CVC in right groin region, pulses are present, blisters present on left forearm. Left lower extremity superficial ulcer on the lateral aspect of the leg. Right lower extremity 2 superficial ulcers 1 on the medial leg and 1 on the dorsal foot. Skin: Saccrococcyx 2.5x1.2x0.5cm, moist, open, full-thickness wound with moist red granulation tissue in the wound base and a mix of pale pink collagen scar tissue and dark brown adhered eschar material on the periwound area, there is minimal odor., darkened eschar lesions on his toes Neurological: hypoactive Gag and cough noted, patient blinks but does not track movements with his eyes, does not respond to verbal commands, no response to painful stimulus. Penile ulcer noted under the foreskin laboratory and microbiology Laboratory Tests 10/14/25 02:41 Test 10/14/25 02:41 Range/Units Serum Glucose 112 H 74-106 mg/dL Microbiology Date/Time Source Procedure Growth Status 10/08/25 22:28 Urine - Rosales Port Urine Culture - Final Complete 10/06/25 13:00 Sacrum Gram Stain - Final Resulted 10/06/25 13:00 Wound Culture - Preliminary Enterobacter cloacae Enterococcus faecalis - VRE Resulted 10/02/25 17:33 Blood Blood Culture - Final NO GROWTH AFTER 5 DAYS OF INCUBATION. Complete Labs and/or images reviewed: Labs reviewed by me, Image(s) reviewed by me Problem List/Assessment/Plan Problem List/Assessment/Plan Neurology # Sedated - Precedex at 0.3 mg # Encephalomalacia - Head CT 09/26/2025: Bilateral cerebral encephalomalacia # Global cerebral volume loss - Head CT 09/26/2025: Mild global cerebral volume loss # epilepsy - Oxycarbazepine - held # Concern for anoxic brain injury - Head CT 10/06/25: No acute intracranial hemorrhage or mass effect.Age indeterminate small infarct involving the right cerebellum, favored to be chronic. If there is clinical concern for acute infarct, recommend MRI for further evaluation.Chronic bilateral parietal and occipital lobe infarcts. - Despite being off sedation for 48 hours, patient still has no meaningful neurologic response. . Neurology has been consulted - unable to obtain MRI as per [employer] pacemaker leads are older generation and not MRI compatible. #History of CVA in 201210/10/25 CT head negative for acute process. - Neurology consult - Off sedation since 10/08 Cardiovascular #S/p Cardiac arrest with ROSC - 09/26/2025: Witnessed at dialysis center, bystanders started CPR and AED use, ROSC achieved before EMS arrived - 10/01/2025: Rhythm: Asystole, ROSC achieved after 7 minutes of CPR - 10/01/2025: Rhythm: Asystole, ROSC achieved after 11 minutes of CPR - 10/01/2025: Rhythm: Asystole, ROSC achieved after 2 minutes of CPR # Cardiogenic shock # Lactic acidosis likely due to above - wound culture growing Enterobacter cloacae MDR, VRE Enterococcus faecalis. - Levophed 2 mcg, now discontinued - Epinephrine has been discontinued # Acute on chronic HFrEF - BNP 1232.11 - Echocardiogram 08/22/2025: LVEF of 20-25%, Severe LV dysfunction, moderate mitral regurgitation - Per cardiology: Diuretics with lasix, aspirin, nitroglycerin SL - Lasix 40 mg IV daily - S/p pacemaker placement # Bilateral pleural effusion - Chest xray 10/12/2025: No significant interval change. #Hypertension - Amlodipine held by nephrology Respiratory # Acute hypoxic hypercapnic respiratory failure # Ventilator -Intubated (10/01/2025) -On [facility] vent : VCAC Mode RR 18 TV 450ml, PEEP Of 8 and FiO2 of 4045% - 8.0 endotracheal tube, 24 at the lip - Cutlures from sputum: Normal orophargyngeal elpidio GI # Peptic ulcer prophylaxis -Pantoprazole 40 mg IV daily # Rosales catheter draining clear urine placed on 10/09/2025 Nephrology # ESRD on hemodialysis - Received dialysis without complication and without pressor support on 10/13/2025 with 2 L removed - Strict Is and Os # Severe diabetic nephropathy #Acute metabolic alkalosis # Secondary hyperparathyroidism # Hypocalcemia - Monitor - Calcitrol # Hyperphosphatemia - Phosphate binders Infectious disease # 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 # Possible cellulitis secondary to lower extremity ulcers, , leg wound growing E coli # Complicated UTI growing MDR cloacae, VRE - IV linezolid, now discontinued - started patient on IV gentamicin per pharmacy, now discontinued - consulted infectious disease; per ID to discontinue systemic antibiotics likely colonization #Septic vs Cardiogenic shock - blood Cultures: Negative at 72 hours - Ceftriaxone 1 g IV daily, now discontinue Hem/onc #Thrombocytopenia, improved - Monitor #Normocytic anemia, likely due to chronic disease - Monitor Hand H - Per nephrology: Epogen 34488 SQ 3 weekly as tolerated Endocrine #Type 2 diabetes mellitus - SSI -Accu cheks MSK # Gout - Allopurinol 300 mg PO daily Skin # Circular ulcers present on right leg, present on admission # Possible Sacral Ulcer stage 2, present on admission - Wound culture: VRE - Meropenem 500 mg daily, discontinued - Linezolid 600 mg IV q 12 hours , now discontinued Marijuana use DVT prophylaxis: SCD PUD prophylaxis: Pantoprazole 40 mg IV daily Lines -R femoral central line: 10/01/2025 -Rosales catheter 10/09/2025 -ET tube: 10/01/2025 - Tunneled catheter in right pectoral region Patient has right femoral line given the presence of right tunnel catheter in right pectoral region and pacemaker in left field. We will give the patient more time for sedation to wear off for accurate neurological evaluation. Drips during [facility] ventilation Fentanyl Discontinued Propofol: dc'ed Bicarbonate drip discontinued Levophed discontinued Critical care time 82 minutes excluding procedure. Code status discussed greater than 20 minutes: Full CODE STATUS. Detailed conversation held with patient's sister at bedside where prognosis was explained, per patient's sister would like to wait until Sunday before deciding for compassionate extubation versus tracheostomy. Plan discussed with Dr. Bautista Plan discussed with: Other (Patient's sister, [id number], RN) My Orders My Orders Orders - YOBANI GOETZ Procedure Category Date Status Time Chest Portable XY 10/14/25 Resulted 04:00 Abg W/ Co-Ox RT 10/14/25 Logged 05:30 * Wound Consult CONS 10/14/25 Transmitted Glycopyrrolate PHA 10/14/25 Logged Injection (Robinul 16:00 Complete Blood Count LAB 10/15/25 Verified 04:00 Basic Metabolic Panel LAB 10/15/25 Verified 04:00 Chest Portable XY 10/15/25 Transmitted 04:00 Abg W/ Co-Ox RT 10/15/25 Transmitted 04:00 Dietary Evaluation Review Comments: Nutrition Recommendation: 1) CCHO 75gm + renal standard diet 2) Pro-stat 1 pk BID 3) Nephro-nellie 1 tab daily 4) Monitor PO intake, lab values, weight trend, and I/O Expected Outcomes/Goals: Wound to improve Intake to meet >75% estimated needs FU 3-5 days Visit Coding STANDARD RES Billing Provider: ANANT BAUTISTA MD Date of Service if different f: Oct 14, 2025 Common Visit Codes: 73435-[id number] CARE 30-74 MIN, [id number] CARE-EACH +30MIN YOBANI GOETZ Oct 14, 2025 16:02 ANANT BAUTISTA MD Oct 15, 2025 14:30
[2025-10-14] MEDS: GLYCOPYRROLATE 0.2 MG/ML 1ML VIAL IV ONE (17:49)
--- NOTE | 2025-10-14 18:57 | DVHPN2 ---
Consult Progress Note Date Seen: Oct 14, 2025 Subjective Patient reports: Feels better (oliguric, no fevers) Objective vital signs Vital Sign Date Time Temp Pulse Resp B/P (MAP) Pulse Ox O2 Delivery O2 Flow Rate FiO2 10/14/25 18:37 101 18 147/78 (101) 100 40 10/14/25 18:30 Mechanical Ventilator+ 10/14/25 16:00 98.5 98.5 Total Intake and Output 10/13/25 10/13/25 10/14/25 15:00 23:00 07:00 Intake Total 185.020 ml 33.050 ml 228.220 ml Output Total 125 ml 200 ml Balance 185.020 ml -91.950 ml 28.220 ml medications Current Medications Medications Dose Ordered Sig/Esteban Route Start Time Stop Time Status Last Admin Dose Admin Diagnostic Test (Pha) 1 strip ACHS 09/26/25 22:00 10/14/25 17:45 1 STRIP Insulin Human Regular ACHS SC 09/26/25 22:00 10/13/25 21:05 2 UNITS Dextrose 50 ml UD PRN IV 09/26/25 21:15 Sodium Chloride 10 ml Q8HR IV 09/26/25 22:00 10/14/25 14:00 10 ML Sevelamer HCl 800 mg TIDWM PO 09/29/25 18:00 10/14/25 17:48 800 MG Amino Acid Protein 30 ml BID PO 09/30/25 22:00 10/14/25 10:08 30 ML Multivit/Ca Carb/ B Cmplx/FA/Prenat 1 tab DAILY PO 09/30/25 11:12 10/14/25 10:07 1 TAB Epinephrine HCl 250 ml @ 7.5 mls/hr Q24H IV 10/01/25 15:15 10/01/25 15:39 15 MLS/HR Norepinephrine Bitartrate 250 ml @ 3.75 mls/hr Q24H IV 10/01/25 15:15 10/06/25 09:44 3.75 MLS/HR Albumin Human 100 ml @ 100 mls/hr ANABELLA PRN IV 10/03/25 09:45 10/07/25 17:42 100 MLS/HR Aspirin 81 mg DAILY NG 10/05/25 10:00 10/14/25 10:07 81 MG Enteral Nutritional Formula 1,000 ml 40ML/HR GT 10/04/25 18:30 10/14/25 14:15 1,000 ML Famotidine 10 mg HS IV 10/07/25 22:00 10/13/25 21:04 10 MG Albuterol 2.5 mg Q6HR NEB 10/08/25 12:00 10/14/25 18:37 2.5 MG Ipratropium [place] 0.5 mg Q6HR NEB 10/08/25 12:00 10/14/25 18:37 0.5 MG Artificial Tears 2 drop Q2HP PRN EACHEYE 10/08/25 14:30 Propofol 100 ml @ 3.966 mls/ hr Q24H IV 10/08/25 19:00 10/08/25 21:58 7.932 MLS/HR Levetiracetam 100 ml @ 400 mls/hr BID IV 10/11/25 22:00 10/14/25 10:07 400 MLS/HR Lorazepam 1 mg Q5MINP PRN IV 10/11/25 21:00 Epoetin Mohan-epbx 10,000 unit MWF@2100 SC 10/12/25 21:00 10/12/25 21:11 10,000 UNIT Gentamicin Sulfate 0 ml @ 0 mls/hr PER PHARMACY IV 10/12/25 18:15 Cancel laboratory and microbiology Laboratory Tests 10/14/25 02:41 Test 10/14/25 02:41 Range/Units Serum Glucose 112 H 74-106 mg/dL Problem List/Assessment/Plan Problem List/Assessment/Plan ASSESSMENT AND PLAN: ID Problem List: \-- [id number]-vr-[id number] cardiac arrest at dialysis center with bystander CPR and AED shock \-- In-hospital bradycardia/asystolic arrest during hemodialysis on 10/01 with prolonged CPR and defibrillation \-- Acute hypoxic respiratory failure requiring mechanical ventilation \-- Multifocal pulmonary airspace disease and pulmonary vascular congestion (pulmonary edema/contusions) after multiple CPR events and underlying CHF \-- CKD on chronic hemodialysis (reported schedule Sunday//Sunday) \-- CHF \-- Diabetes mellitus \-- Hypertension \-- History of stroke \-- Pacemaker in situ (triple-lead on CXR) \-- Chronic thrombocytopenia (platelets progressively decreased from ~115K on admission to 60K on 10/01; most recent ~89K) \-- Sacrococcygeal pressure ulcer (full-thickness, granulating, no drainage/odor) \-- Right anterior ulcer (granulating, no drainage/edema) \-- Multiple left plantar blood-filled blisters and calluses (no deep tissue involvement) \-- Scattered skin ulcers/eschar likely related to peripheral arterial disease and pressure injuries \-- Wound culture (10/06) with VRE and carbapenem-resistant Enterobacter (CRE), currently felt to represent colonization \-- Pneumonia vs pulmonary edema/contusions treated empirically with ceftriaxone clindamycin, later meropenem \-- Current antibiotic regimen: linezolid + gentamicin per pharmacy at the time of this consult Assessment: Theo Zamora is a 59-year-old male with CKD on chronic hemodialysis (), CHF, history of stroke, diabetes, and hypertension who initially had a syncopal episode and cardiac arrest at the dialysis center. He received bystander CPR and AED shock; on EMS arrival he was awake, alert, and oriented x4 (GCS 15) but had chest wall pain. Initial evaluation showed leukocyte count 7.5, hemoglobin 9.8, platelets 115K, sodium 142, BUN 43, creatinine 6.85. CT head revealed no acute intracranial hemorrhage or mass effect but did show chronic encephalomalacia and chronic microvascular ischemic changes. CXR showed a triple-lead pacemaker and bilateral airspace opacities and pleural effusions without fractures, interpreted as pulmonary contusions and congestion. He was admitted to telemetry and subsequently developed a second arrest on 10/01 while on hemodialysis, with bradycardia progressing to asystole. He received chest compressions for 14 minutes and defibrillation at approximately 14 minutes 22 seconds. Post-code lactic acid was 5.7, improving to 1.9 after return of circulation and fluid resuscitation. Labs on 10/01: WBC 7.2, hemoglobin 8.6, platelets 60K, sodium 140, potassium 4.6, BUN 51, creatinine 7.46, glucose 100, liver enzymes unremarkable. He required intubation and mechanical ventilation (FiO2 50%, PEEP 5 initially), vasopressor support with norepinephrine (Levophed), and empiric antibiotics (ceftriaxone for pneumonia coverage; clindamycin for pneumonia and skin injuries). Respiratory cultures on 10/01 showed normal respiratory elpidio; cultures on 10/02 showed no growth to date. CXR and KUB showed colonic distension with NG tube in the stomach, and moderate multifocal bilateral pulmonary airspace disease with pulmonary vascular congestion. Vasopressor requirements gradually improved and were discontinued; he has now been off pressors for approximately 5 days. FiO2 has improved to 30% with PEEP 5, though CXR continues to show unchanging multifocal airspace disease. On exam he has multiple skin injuries, including a sacrococcygeal full-thickness ulcer (2.5 x 0.2 cm) with healthy granulation tissue and no odor or significant drainage, and a right anterior ulcer (3 x 4 cm) with healthy granulation and epithelium, no drainage, exudate, or surrounding swelling/edema. Eschar is noted on toes and ankle in areas of prior ulcers/ischemic disease. There are multiple left plantar foot blood-filled blisters and calluses; de-roofed blisters reveal intact underlying skin with no deeper edema or induration. These injuries are thought to be related to peripheral arterial disease, pressure, and thrombocytopenia-related skin fragility. Wound care is being provided. A wound culture on 10/06 grew VRE and a multidrug-resistant Enterobacter (carbapenem-resistant), sensitive only to gentamicin. Current antibiotics include linezolid and gentamicin per pharmacy. Clinically, there are no signs of cellulitis at the wound sites, no diarrhea, no reports of new drainage or local changes, and no ongoing hemodynamic instability or other signs of sepsis. The VRE and Enterobacter are felt to represent colonization of chronic wounds rather than active invasive infection at this time. Given his advanced CKD on dialysis and chronic thrombocytopenia (platelets <100K), the risks of gentamicin (nephrotoxicity/ototoxicity in a dialysis patient) and linezolid (worsening thrombocytopenia) likely outweigh the benefits in the absence of clear evidence of active systemic infection. 10/13: hemodynamically stable off antibiotics 10/14: urine culture w. rosales catheter sampled oliguric urine growing VRE and enterobacter - consistent with colonization Plan: 0. will continue to monitor patient off all antibiotics 1\. Wound colonization with VRE and CRE Enterobacter (no current evidence of invasive infection): \-- Wound culture (10/06) with VRE and carbapenem-resistant Enterobacter likely represents colonization of chronic pressure/ischemic ulcers rather than active infection based on current exam (granulation tissue, lack of drainage, lack of surrounding erythema/edema, no systemic signs of sepsis). // Likewise, urine sample from oliguric patient sampled from a rosales catheter placed at time of admission would like represent stagnant urine breeding colonized bacteria. \-- Recommend stop all systemic antibiotics at this time, including linezolid and gentamicin, given: Lack of clinical evidence for active invasive infection High risk of ototoxicity/nephrotoxicity from gentamicin in a dialysis patient Risk of worsening thrombocytopenia with linezolid in a patient with platelets <100K \-- Continue meticulous local wound care as per wound care nursing and primary team. \-- Monitor wounds closely for any new drainage, malodor, increased pain, erythema, warmth, or expansion, which would raise concern for superimposed infection. 2\. Acute hypoxic respiratory failure; multifocal airspace disease (pulmonary edema/contusions; possible pneumonia): \-- Currently mechanically ventilated with FiO2 ~30% and PEEP 5; off vasopressors for ~5 days. \-- Continue ventilator weaning as tolerated per ICU/primary team. \-- Continue aggressive volume management and diuresis in concert with hemodialysis to address pulmonary edema as seen on CXR. \-- At present, respiratory cultures show only normal elpidio or no growth; there are no clear signs of active, progressive pneumonia distinct from pulmonary edema/contusion. \-- If clinical concern for sepsis or worsening pneumonia arises (e.g., new fever, leukocytosis, rising vasopressor requirement, worsening oxygenation, hypotension, new purulent secretions): Obtain repeat sputum culture from a tracheal aspirate or tracheal wash. Reinitiate empiric therapy for hospital-acquired pneumonia. Options discussed include: Piperacillin-tazobactam (Zosyn) or cefepime for Pseudomonas and broad gram-negative coverage. At this time, VRE and carbapenem-resistant Enterobacter from the sacral wound are not felt to be significantly contributing to the pulmonary process or overall clinical picture, and targeted therapy against these organisms is not recommended absent evidence of invasive disease. 3\. Chronic kidney disease on hemodialysis; risk of electrolyte-related arrhythmia and arrest: \-- Continue scheduled hemodialysis (reported Sunday//Sunday) with careful monitoring of potassium and other electrolytes, especially in the olga- dialysis period given prior arrest during hemodialysis. \-- Avoid nephrotoxic antibiotics where possible; specifically recommend discontinuation of gentamicin as above. \-- Continue close hemodynamic and rhythm monitoring during dialysis sessions. 4\. Chronic thrombocytopenia: \-- Platelet count has declined from ~115K on admission to as low as 60K, with recent level around 89K. \-- Avoid linezolid in the setting of chronic thrombocytopenia where possible, as recommended above. \-- Monitor platelet counts serially. \-- Transfusion and further hematologic evaluation to be directed by the primary/ICU team. 5\. Skin ulcers, pressure injuries, and ischemic lesions: \-- Continue dedicated wound care with: Sacrococcygeal ulcer (2.5 x 0.2 cm, full thickness, granulating, no drainage/odor). Right anterior ulcer (3 x 4 cm, healthy granulation and epithelium, no drainage or surrounding edema). Eschar on toes and ankle at prior ulcer/ischemic sites. Multiple left plantar blood-filled blisters and calluses, with blisters de-roofed to healthy underlying tissue and no deep edema or induration. \-- Maintain offloading and repositioning strategies to avoid further pressure on sacrum and other bony prominences; defer specific dressing and positioning regimens to wound care nursing. \-- No systemic antibiotics indicated for these wounds at present, in the absence of cellulitis or systemic signs of infection. 6\. Cardiovascular status; postcardiac arrest care: \-- He has had two significant cardiac events ([id number] arrest at dialysis center; in-hospital asystolic arrest during hemodialysis). \-- Etiology remains unclear but may be related in part to electrolyte shifts in the setting of CKD on dialysis and underlying structural heart disease (CHF, pacemaker in place). \-- Currently off vasopressors with stable blood pressures per transcript. \-- Continue telemetry and standard postcardiac arrest care as directed by ICU/cardiology teams. \-- No additional ID-specific interventions beyond those noted. 7\. Diabetes mellitus, hypertension, CHF, history of stroke: \-- Management to be continued by primary and consulting services. \-- From an ID standpoint, these comorbidities increase risk of poor wound healing and infection; reinforce close monitoring of wounds and careful glycemic and volume control. Isolation Precautions: \-- Isolation precautions: Not specified in transcript. (Given colonization with VRE and carbapenem-resistant Enterobacter, facility policies on contact precautions should be followed as per hospital protocol; defer to hospital infection prevention team.) Plan is subject to change pending incorporation of new incoming information/diagnostics. Updates may be added as an addendum at the bottom (or top) of this note. Infectious Disease will continue to follow. Please contact the ID service with any new questions or concerns. Electronically signed by: Lc Huston MD, 10/13/2025 Authorized and Performed by: lc huston Md Total critical care time: Approximately 66 minutes Due to a high probability of clinically significant, life threatening deterioration, the patient required my highest level of preparedness to intervene emergently and I personally spent this critical care time directly and personally managing the patient. This critical care time included obtaining a history; examining the patient; pulse oximetry; ordering and review of studies; arranging urgent treatment with development of a management plan; evaluation of patient's response to treatment; frequent reassessment; and, discussions with other providers. This critical care time was performed to assess and manage the high probability of imminent, life-threatening deterioration that could result in multi-organ failure. It was exclusive of separately billable procedures and treating other patients and teaching time. Physical Exam: General: NAD Neck: Supple. No masses. HEENT: PERRL. Normal lids and conjunctiva. Moist mucous membranes. Oropharynx without lesions, exudates or excessive erythema. Normal appearance of the external aspects of the nose and ears. Heart: Regular rhythm, normal rate. No murmur. No lower extremity edema. Lungs: Normal respiratory effort. Clear to auscultation bilaterally. No wheezes. No crackles. Mechanically ventilated via endotracheal tube; most recent settings in transcript: FiO2 approximately 30%, PEEP 5 cm H?O. Abdomen: Soft. Non-tender. Non-distended. No masses or abdominal hernia. Msk: No digital cyanosis. Normal strength and tone in all 4 limbs. Chest wall tenderness and bruising present, consistent with recent CPR. Skin: Warm and dry, no rashes. Sacrococcygeal ulcer approximately 2.5 x 0.2 cm, full-thickness wound with healthy granulation tissue, no odor or significant drainage. Right anterior ulcer approximately 3 x 4 cm with healthy granulation tissue and epithelium, no drainage, exudate, or surrounding swelling/edema. Eschar noted on toes and ankle in areas of prior ulcers/ischemic disease. Multiple left plantar foot blood-filled blisters and calluses; blisters de- roofed with intact underlying skin, no signs of deeper edema or induration. Scattered skin ulceration and tissue injury consistent with peripheral arterial disease and pressure injury. Neuro: Alert. No facial droop or slurred speech. Extra-ocular movements intact. Sensation intact to soft touch in all 4 limbs. Psych: Appropriate mood. Full affect. Oriented to person, place, time, and situation. Plan discussed with: Patient Dietary Evaluation Review Comments: Nutrition Recommendation: 1) CCHO 75gm + renal standard diet 2) Pro-stat 1 pk BID 3) Nephro-nellie 1 tab daily 4) Monitor PO intake, lab values, weight trend, and I/O Expected Outcomes/Goals: Wound to improve Intake to meet >75% estimated needs FU 3-5 days LC HUSTON MD Oct 14, 2025 18:57
[2025-10-15] VITALS (110 sets, daily range): BP systolic 101–154; BP diastolic 52–91; PULSE 83–113; RESP 8–26; TEMP 96.9–98.9; O2SAT 40–100
[2025-10-15 04:22] LABS: Nucleated Red Blood Cells % 0.0 %
[2025-10-15 04:25] LABS: Hematocrit 25.1 % (41.0-53.0); Hemoglobin 8.3 g/dL (13.5-17.5); Mean Corpuscular Hemoglobin 32.9 pg (28.0-32.0); Mean Corpuscular Volume 99.1 fL (80.0-100.0)
[2025-10-15 04:27] LABS: Anion Gap 12 (5-15); Carbon Dioxide 30 mmol/L (20-31); Chloride 100 mmol/L (98-107); Potassium 3.7 mmol/L (3.5-5.1); Sodium 142 mmol/L (136-145)
[2025-10-15 04:28] LABS: Calcium 9.2 mg/dL (8.7-10.4)
--- NOTE | 2025-10-15 04:29 | DVHPN2 ---
Progress Note - Dictate Date Seen: Oct 14, 2025 Has the PT tested + for MRSA If YES, has PT been informed?: No Medical Necessity Reason Pt with a Central, PICC or Fol: Yes The following are medically ne: Central Line, Rosales Catheter Reason for rosales catheter: Strict I&O Subjective Patient was seen and evaluated in follow up in the ICU. Patient is intubated and sedated on ventilator. 40% FiO2. Patient open his eyes to voices, but he does not not track, or follow any verbal command. EEG was abnormal. HGB 8.9, HCT 27.8, BUN 38, [employer] 5.37. Chest x-ray shows stable appearing pulmonary vascular congestion, small bilateral pleural effusions and cardiomegaly. vital signs Vital Sign Date Time Temp Pulse Resp B/P (MAP) Pulse Ox O2 Delivery O2 Flow Rate FiO2 10/14/25 11:30 97 18 145/66 (92) 99 10/14/25 10:00 Mechanical Ventilator+ 40 40 10/14/25 08:00 97.6 97.6 Total Intake and Output 10/13/25 10/13/25 10/14/25 15:00 23:00 07:00 Intake Total 185.020 ml 33.050 ml 228.220 ml Output Total 125 ml 200 ml Balance 185.020 ml -91.950 ml 28.220 ml medications Current Medications Medications Dose Ordered Sig/Esteban Route Start Time Stop Time Status Last Admin Dose Admin Diagnostic Test (Pha) 1 strip ACHS 09/26/25 22:00 10/14/25 11:38 1 STRIP Insulin Human Regular ACHS SC 09/26/25 22:00 10/13/25 21:05 2 UNITS Dextrose 50 ml UD PRN IV 09/26/25 21:15 Sodium Chloride 10 ml Q8HR IV 09/26/25 22:00 10/14/25 05:22 10 ML Sevelamer HCl 800 mg TIDWM PO 09/29/25 18:00 10/14/25 08:24 800 MG Amino Acid Protein 30 ml BID PO 09/30/25 22:00 10/14/25 10:08 30 ML Multivit/Ca Carb/ B Cmplx/FA/Prenat 1 tab DAILY PO 09/30/25 11:12 10/14/25 10:07 1 TAB Epinephrine HCl 250 ml @ 7.5 mls/hr Q24H IV 10/01/25 15:15 10/01/25 15:39 15 MLS/HR Norepinephrine Bitartrate 250 ml @ 3.75 mls/hr Q24H IV 10/01/25 15:15 10/06/25 09:44 3.75 MLS/HR Albumin Human 100 ml @ 100 mls/hr ANABELLA PRN IV 10/03/25 09:45 10/07/25 17:42 100 MLS/HR Aspirin 81 mg DAILY NG 10/05/25 10:00 10/14/25 10:07 81 MG Enteral Nutritional Formula 1,000 ml 40ML/HR GT 10/04/25 18:30 10/13/25 03:51 1,000 ML Famotidine 10 mg HS IV 10/07/25 22:00 10/13/25 21:04 10 MG Albuterol 2.5 mg Q6HR NEB 10/08/25 12:00 10/14/25 12:15 2.5 MG Ipratropium [place] 0.5 mg Q6HR NEB 10/08/25 12:00 10/14/25 12:15 0.5 MG Artificial Tears 2 drop Q2HP PRN EACHEYE 10/08/25 14:30 Propofol 100 ml @ 3.966 mls/ hr Q24H IV 10/08/25 19:00 10/08/25 21:58 7.932 MLS/HR Levetiracetam 100 ml @ 400 mls/hr BID IV 10/11/25 22:00 10/14/25 10:07 400 MLS/HR Lorazepam 1 mg Q5MINP PRN IV 10/11/25 21:00 Epoetin Mohan-epbx 10,000 unit MWF@2100 SC 10/12/25 21:00 10/12/25 21:11 10,000 UNIT Gentamicin Sulfate 0 ml @ 0 mls/hr PER PHARMACY IV 10/12/25 18:15 Cancel objective GENERAL: Ill appearing, intubated on ventilator. Morbidly obese. EYES: PERRL, EOMI. Anicteric. HENT: Moist mucous membranes. LUNGS: Decreased breath sounds. CARDIOVASCULAR: Regular rate and rhythm. ABDOMEN: Soft, non-tender and non-distended. EXTREMITIES: No edema. SKIN: Warm, dry. laboratory and microbiology Laboratory Tests 10/14/25 02:41 Test 10/14/25 02:41 Range/Units Serum Glucose 112 H 74-106 mg/dL Problem List Acute syncopal episode. Status post cardiac arrest x3. ESRD on hemodialysis. Hypertension. Peripheral neuropathy. Severe peripheral artery disease. Acute on chronic congestive heart failure exacerbation. History of CVA. Anemia of chronic disease. Diabetes with severe diabetic nephropathy. History of pacemaker. Morbidly obese. Decompensated heart failure with ejection fraction less than 25%. Encephalomalacia. Hyperphosphatemia. Hyperparathyroidism. Assessment/Plan Continued all current supportive medical care. Aspirin. IV antibiotics as ordered. Morphine and [place] for pain management. Vasopressors for hemodynamic support. Additional plan as per the hospital course. Critical care time of 45 minutes provided to include time spent evaluation of patient at bedside, when appropriate patient/family education for diagnosis, treatment plan, review of pertinent medical information and discussion of care with specialty providers and PCP. Mechanical ventilator parameters, treatment and adjustments have personally been reviewed by me and treatment plan by college tutor has also been reviewed. Dietary Evaluation Review Comments: Nutrition Recommendation: 1) CCHO 75gm + renal standard diet 2) Pro-stat 1 pk BID 3) Nephro-nellie 1 tab daily 4) Monitor PO intake, lab values, weight trend, and I/O Expected Outcomes/Goals: Wound to improve Intake to meet >75% estimated needs FU 3-5 days Plan discussed with: MATTHEW Sneed MD Oct 14, 2025 13:20
[2025-10-15 04:33] LABS: BUN/Creatinine Ratio 8.1 (10.0-20.0)
[2025-10-15 04:34] LABS: Blood Urea Nitrogen 34 mg/dL (9-23); Glucose 106 mg/dL (74-106)
--- NOTE | 2025-10-15 06:53 | DVH ---
CHEST RADIOGRAPH INDICATION: intubated TECHNIQUE: Single frontal view of the chest was obtained COMPARISON: XY CHEST PORTABLE on DOS: 10/14/25, XY CHEST PORTABLE on DOS: 10/13/25, XY CHEST XRAY 1 VIEW on DOS: 10/12/25, XY CHEST PORTABLE on DOS: 10/11/25, XY CHEST XRAY 1 VIEW on DOS: 10/10/25 FINDINGS: Lines and Tubes: Lines and tubes unchanged. Lungs: Moderate diffuse increased prominence of the pulmonary vasculature and right lower lung zone atelectasis. Pleura: No effusion. No pneumothorax. Cardiomediastinal contours: Cardiomegaly. Bones: Unremarkable IMPRESSION: 1. Cardiomegaly and pulmonary vascular congestion. 2. Right lower lung zone atelectasis. 3. Lines and tubes unchanged.
[2025-10-15] MEDS: SODIUM CHL 0.9% 1000 ML BAG XX ONE (07:00)
[2025-10-15 08:10] LABS: Base Excess 1.9 mmol/L (-2.0-3.0)
--- NOTE | 2025-10-15 12:42 | DVHPNRES ---
Progress Note Date Seen: Oct 15, 2025 Resident Creating Document: YOBANI GOETZ RESIDENT Has the PT tested + for MRSA If YES, has PT been informed?: No Medical Necessity Reason Pt with a Central, PICC or Fol: Yes The following are medically ne: Central Line, Rosales Catheter Reason for rosales catheter: Strict I&O Subjective Review of Systems Mr. Zamora is a 59 year old male with PMHx of ESRD with recent initiation of dialysis approximately 2 weeks ago , HFrEF with pacemaker placement, CVA in 2012, type 2 diabetes mellitus, gout, and hypertension, who presented to [facility] due to witnessed cardiopulmonary arrest during dialysis on 09/26/2025. At the time of evaluation the patient is sedated and intubated, majority of history is taken from previous medical record and his sister, Claudia Burnett. Per record, the patient became unresponsive during hemodialysis, CPR was intiated by bystanders and AED was used, by the time EMS arrived on scene the patient was found A&Ox4, GCS15, and moaning in pain. On evaluation in the ED, patient was complaining of dyspnea and chest wall pain. He was afebrile, normocardic with pacedc rhythm, hypertensive, and saturating adequately on room air. EKG showed paced rhythm with widened QTc. Initial labs are significant for normocytic anemia, hypokalemia, creatinine 6.85, BUN 43, and BNP 1232.11. Troponins were negative. UA without alteration. Chest xray significant for lungs with bilateral patchy airspace opacities, prominent pulmonary vasculature, with small bilateral pleural effusions. Head CT shows bilateral cerebral encephalomalacia and mild global cerebral volume loss without intracranial hemorrhage or mass effect. The patient was started on IV diuresis and admitted for further work up and managment. He was evaluated by cardiology who continued diuresis. The patient was evaluated by nephrology who state that given diminished cardiac function likely patient cannot tolerate large ultrafiltration goals. He was scheduled for further dialysis, having undergone dialysis on 09/28/2025 without issue. He was receiving dialysis on 10/01/2025 when he became bradycardic and went into asystole. Code blue was called and CPR was intiated with ROSC achieved after 7 minutes of CPR. He was transferred to the ICU and he entered asystole two more times in a span of 15 minutes a with ROSC achieved after 11 minutes of CPR and at 2 minutes of CPR respectively. He was intubated and started on pressors, sedation, antibiotics, and bicarbonate drip. On initial evaluation in the ICU, the patient is intubated, sedated, and mechanically ventilated, on levophed 2 mcg, pupils are reactive, no response to painful stimulus, cough and gag are present. Labs are significant for normocytic anemia, worsening thrombocytopenia, and worsening renal function. ABG is significant for metabolic alkalosis. Most recent chest xray shows worsening congestion. Past medical history: ESRD on dialysis, HFrEF, CVA in 2012, Type 2 diabetes mellitus, and hypertension Past surgical history: Pacemaker placement and replacement, Right femoral fracture repair Allergies: Denies Social: Per sister, the patient currently smokes marijuana, denies other drug use. Patient currently lives with his mother and his brother. Home meds: Famotidine, Allopurinol, pregabalin, furosemide, sevelamer, metoprolol, and lokelma : Patient seen and examined at bedside. Started patient on gentamicin per pharmacy. Unable to complete MRI brain as pacemaker leads not compatible with MRI per [employer]. Infectious Disease consult. Decreased FiO2. 10/13/2025: Patient seen and examined at bedside. Discontinued all antibiotics per Infectious Disease recommendation. PICC line orders as per nephrology in order to discontinue femoral TLC. Precedex at 0.3. Left voicemail for next of kin Lilian Zamora at [phone]. Detailed conversation held with patient's sister at [phone], she would prefer extubation with a possibility of re- intubation if respiratory distress persists. Patient's sister like to come in tomorrow and have a discussion with Dr. Bautista 10/14/2025: Patient seen and examined at bedside, unable to obtain PICC line as left basilic vein thrombus noted. Detailed conversation held with patient's sister at bedside where prognosis was explained, per patient's sister would like to wait until Sunday before deciding for compassionate extubation versus tracheostomy. 10/15/2025: Patient seen and examined at bedside, physical exam remains the same as prior. Last bowel movement last night, received hemodialysis yesterday with 2 L of fluid removed, currently off of Precedex. We will try to get thigh PICC line. Objective vital signs Vital Sign Date Time Temp Pulse Resp B/P (MAP) Pulse Ox O2 Delivery O2 Flow Rate FiO2 10/15/25 12:00 103 26 131/91 (104) 100 40 10/15/25 11:53 Mechanical Ventilator+ 10/15/25 08:00 98.9 98.9 Total Intake and Output 10/14/25 10/14/25 10/15/25 15:00 23:00 07:00 Intake Total 100 ml 370 ml 507 ml Output Total 2225 ml 150 ml Balance 100 ml -1855 ml 357 ml medications Current Medications Medications Dose Ordered Sig/Esteban Route Start Time Stop Time Status Last Admin Dose Admin Diagnostic Test (Pha) 1 strip ACHS 09/26/25 22:00 10/15/25 05:30 1 STRIP Insulin Human Regular ACHS SC 09/26/25 22:00 10/13/25 21:05 2 UNITS Dextrose 50 ml UD PRN IV 09/26/25 21:15 Sodium Chloride 10 ml Q8HR IV 09/26/25 22:00 10/15/25 05:30 10 ML Sevelamer HCl 800 mg TIDWM PO 09/29/25 18:00 10/14/25 17:48 800 MG Amino Acid Protein 30 ml BID PO 09/30/25 22:00 10/14/25 20:58 30 ML Multivit/Ca Carb/ B Cmplx/FA/Prenat 1 tab DAILY PO 09/30/25 11:12 10/15/25 09:34 1 TAB Epinephrine HCl 250 ml @ 7.5 mls/hr Q24H IV 10/01/25 15:15 10/01/25 15:39 15 MLS/HR Norepinephrine Bitartrate 250 ml @ 3.75 mls/hr Q24H IV 10/01/25 15:15 10/06/25 09:44 3.75 MLS/HR Albumin Human 100 ml @ 100 mls/hr ANABELLA PRN IV 10/03/25 09:45 10/07/25 17:42 100 MLS/HR Aspirin 81 mg DAILY NG 10/05/25 10:00 10/15/25 09:34 81 MG Enteral Nutritional Formula 1,000 ml 40ML/HR GT 10/04/25 18:30 10/14/25 14:15 1,000 ML Famotidine 10 mg HS IV 10/07/25 22:00 10/14/25 20:57 10 MG Albuterol 2.5 mg Q6HR NEB 10/08/25 12:00 10/15/25 12:00 2.5 MG Ipratropium [place] 0.5 mg Q6HR NEB 10/08/25 12:00 10/15/25 12:00 0.5 MG Artificial Tears 2 drop Q2HP PRN EACHEYE 10/08/25 14:30 Propofol 100 ml @ 3.966 mls/ hr Q24H IV 10/08/25 19:00 10/08/25 21:58 7.932 MLS/HR Levetiracetam 100 ml @ 400 mls/hr BID IV 10/11/25 22:00 10/15/25 09:34 400 MLS/HR Lorazepam 1 mg Q5MINP PRN IV 10/11/25 21:00 Epoetin Mohan-epbx 10,000 unit MWF@2100 SC 10/12/25 21:00 10/14/25 20:57 10,000 UNIT Gentamicin Sulfate 0 ml @ 0 mls/hr PER PHARMACY IV 10/12/25 18:15 Cancel Examination General: Patient is intubated, mechanically ventilated, non-reactive to painful stimulus HEENT: Normocephalic, atraumatic, 3 mm very sluggish, no EOM, eyes open and moving, unable to track objects, ET tube in place, orogastric tube in palce Respiratory/pulmonary: Bilateral chest expansion, decreased breath sounds bilaterally, wheezing in bilateral upper lobes Cardiovascular: Normal RRR Abdomen: Obese, Abdomen nondistended, normal bowel sounds no grimacing is observed on palpation, no palpable masses. Extremities: No deformities, bilateral lower extremity pedal edema 2+ up to upper thighs, with scrotal swelling, large red circular ulcers present in right calf, presence of femoral CVC in right groin region, pulses are present, blisters present on left forearm. Left lower extremity superficial ulcer on the lateral aspect of the leg. Right lower extremity 2 superficial ulcers 1 on the medial leg and 1 on the dorsal foot. Skin: Saccrococcyx 2.5x1.2x0.5cm, moist, open, full-thickness wound with moist red granulation tissue in the wound base and a mix of pale pink collagen scar tissue and dark brown adhered eschar material on the periwound area, there is minimal odor., darkened eschar lesions on his toes Neurological: hypoactive Gag and cough noted, patient blinks but does not track movements with his eyes, does not respond to verbal commands, no response to painful stimulus. Penile ulcer noted under the foreskin laboratory and microbiology Laboratory Tests 10/15/25 03:40 Test 10/15/25 03:40 Range/Units Serum Glucose 106 74-106 mg/dL Microbiology Date/Time Source Procedure Growth Status 10/08/25 22:28 Urine - Rosales [place] Urine Culture - Final Complete 10/06/25 13:00 Sacrum Gram Stain - Final Resulted 10/06/25 13:00 Wound Culture - Preliminary Enterobacter cloacae Enterococcus faecalis - VRE Resulted 10/02/25 17:33 Blood Blood Culture - Final NO GROWTH AFTER 5 DAYS OF INCUBATION. Complete Labs and/or images reviewed: Labs reviewed by me, Image(s) reviewed by me Problem List/Assessment/Plan Problem List/Assessment/Plan Neurology # Sedated - Precedex at 0.3 mg # Encephalomalacia - Head CT 09/26/2025: Bilateral cerebral encephalomalacia # Global cerebral volume loss - Head CT 09/26/2025: Mild global cerebral volume loss # epilepsy - Oxycarbazepine - held # Concern for anoxic brain injury - Head CT 10/06/25: No acute intracranial hemorrhage or mass effect.Age indeterminate small infarct involving the right cerebellum, favored to be chronic. If there is clinical concern for acute infarct, recommend MRI for further evaluation.Chronic bilateral parietal and occipital lobe infarcts. - Despite being off sedation for 48 hours, patient still has no meaningful neurologic response. . Neurology has been consulted - unable to obtain MRI as per [employer] pacemaker leads are older generation and not MRI compatible. #History of CVA in 201210/10/25 CT head negative for acute process. - Neurology consult - Off sedation since 10/08 Cardiovascular #S/p Cardiac arrest with ROSC - 09/26/2025: Witnessed at dialysis center, bystanders started CPR and AED use, ROSC achieved before EMS arrived - 10/01/2025: Rhythm: Asystole, ROSC achieved after 7 minutes of CPR - 10/01/2025: Rhythm: Asystole, ROSC achieved after 11 minutes of CPR - 10/01/2025: Rhythm: Asystole, ROSC achieved after 2 minutes of CPR # Cardiogenic shock # Lactic acidosis likely due to above - wound culture growing Enterobacter cloacae MDR, VRE Enterococcus faecalis. - Levophed 2 mcg, now discontinued - Epinephrine has been discontinued # Acute on chronic HFrEF - BNP 1232.11 - Echocardiogram 08/22/2025: LVEF of 20-25%, Severe LV dysfunction, moderate mitral regurgitation - Per cardiology: Diuretics with lasix, aspirin, nitroglycerin SL - Lasix 40 mg IV daily - S/p pacemaker placement # Bilateral pleural effusion - Chest xray 10/12/2025: No significant interval change. #Hypertension - Amlodipine held by nephrology Respiratory # Acute hypoxic hypercapnic respiratory failure # Ventilator -Intubated (10/01/2025) -On [facility] vent : VCAC Mode RR 18 TV 450ml, PEEP Of 8 and FiO2 of 4045% - 8.0 endotracheal tube, 24 at the lip - Cutlures from sputum: Normal orophargyngeal elpidio GI # Peptic ulcer prophylaxis -Pantoprazole 40 mg IV daily # Rosales catheter draining clear urine placed on 10/09/2025 Nephrology # ESRD on hemodialysis - Received dialysis without complication and without pressor support on 10/13/2025 with 2 L removed - Strict Is and Os # Severe diabetic nephropathy #Acute metabolic alkalosis # Secondary hyperparathyroidism # Hypocalcemia - Monitor - Calcitrol # Hyperphosphatemia - Phosphate binders Infectious disease # 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 # Possible cellulitis secondary to lower extremity ulcers, , leg wound growing E coli # Complicated UTI growing MDR cloacae, VRE - IV linezolid, now discontinued - started patient on IV gentamicin per pharmacy, now discontinued - consulted infectious disease; per ID to discontinue systemic antibiotics likely colonization #Septic vs Cardiogenic shock - blood Cultures: Negative at 72 hours - Ceftriaxone 1 g IV daily, now discontinue Hem/onc #Thrombocytopenia, improved - Monitor #Normocytic anemia, likely due to chronic disease - Monitor Hand H - Per nephrology: Epogen 74025 SQ 3 weekly as tolerated Endocrine #Type 2 diabetes mellitus - SSI -Accu cheks MSK # Gout - Allopurinol 300 mg PO daily Skin # Circular ulcers present on right leg, present on admission # Possible Sacral Ulcer stage 2, present on admission - Wound culture: VRE - Meropenem 500 mg daily, discontinued - Linezolid 600 mg IV q 12 hours , now discontinued Marijuana use DVT prophylaxis: SCD PUD prophylaxis: Pantoprazole 40 mg IV daily Lines -R femoral central line: 10/01/2025, discontinued on 10/15/2025. - thigh PICC line placed on 10/15/2025 -Rosales catheter 10/09/2025 -ET tube: 10/01/2025 - Tunneled catheter in right pectoral region Patient has right femoral line given the presence of right tunnel catheter in right pectoral region and pacemaker in left field. We will give the patient more time for sedation to wear off for accurate neurological evaluation. Drips during [facility] ventilation Fentanyl Discontinued Propofol: dc'ed Bicarbonate drip discontinued Levophed discontinued Critical care time 52 minutes excluding procedure. Code status discussed greater than 20 minutes: Full CODE STATUS. Detailed conversation held with patient's sister at bedside where prognosis was explained, per patient's sister would like to wait until Sunday before deciding for compassionate extubation versus tracheostomy. Plan discussed with Dr. Bautista Plan discussed with: Other (RN) My Orders My Orders Orders - YOBANI GOETZ RESIDENT Procedure Category Date Status Time Chest Portable XY 10/15/25 Resulted 04:00 Abg W/ Co-Ox RT 10/15/25 Logged 04:00 Dietary Evaluation Review Comments: Nutrition Recommendation: 1) CCHO 75gm + renal standard diet 2) Pro-stat 1 pk BID 3) Nephro-nellie 1 tab daily 4) Monitor PO intake, lab values, weight trend, and I/O Expected Outcomes/Goals: Wound to improve Intake to meet >75% estimated needs FU 3-5 days Visit Coding STANDARD RES Billing Provider: ANANT BAUTISTA MD Date of Service if different f: Oct 15, 2025 Common Visit Codes: 80840-[id number] CARE 30-74 MIN YOBANI GOETZ Oct 15, 2025 12:42 ANANT BAUTISTA MD Oct 18, 2025 11:15
[2025-10-15] MEDS: LIDOCAINE 1% (LOCAL ANESTH.) PF 5ml SDV ID ONE (15:14)
[2025-10-15] MEDS: GLYCOPYRROLATE 0.2 MG/ML 1ML VIAL IV ONE (15:48)
[2025-10-15] MEDS: SODIUM CHLOR 0.9% PF (SALINE LOCK) 10ML VIAL/SYR IV SCH (21:31)
--- NOTE | 2025-10-15 21:32 | DVHPN2 ---
Progress Note - Dictate Date Seen: Oct 15, 2025 Has the PT tested + for MRSA If YES, has PT been informed?: No Medical Necessity Reason Pt with a Central, PICC or Fol: Yes The following are medically ne: Central Line, Rosales Catheter Reason for rosales catheter: Strict I&O Subjective Mr. aZmora is a right-handed gentleman with a history of hypertension, diabetes, coronary artery disease, congestive heart failure, chronic kidney failure, chronic leg edema, obesity, stroke, RLS, he was brought to the [facility] [place] on 09/26/2025 with a chief complaint of cardiopulmonary arrest. I saw him on 01/18/2024 for seizure activity I have seen and examined the patient, I have talked to his nurse and other medical staff, he is responsive to light painful stimuli, the spontaneous movement in the left leg RN: He open eyes from times time, but no tracking, no following Precedex 0.2mdg/min, FiO2: 40 Urinalysis, 10/08/2025: WBC: 1809, urine leukocyte esterase: 3+ ABG, 10/01/2025: Respiratory acidosis WBC/HB/PLT/MCV, 10/11/2025: 7/8/166/97.4 BUN/CR, 10/11/2025: 57/6.09 GFR, 10/11/2025: 10 HGB A1c, 08/17/2025: 7.4 Liver function tests, 10/11/2025: Unremarkable TG/HDL/LDL/HDL, 01/14/2024: 77/162/103/48 EEG, 10/12/2025: This is a moderately abnormal EEG with epileptiform discharges Chest x-ray, 10/01/2025: 1. Endotracheal tube tip projects at the level of the tiburcio. Recommend retraction by 2 cm. 2. Remaining Lines and tubes as above. 3. Moderate multifocal bilateral pulmonary airspace disease and pulmonary vascular congestion Chest x-ray, 10/11/2025: Endotracheal tube, enteric catheter in satisfactory position. Right tunneled central venous catheter and left chest wall pacemaker, unchanged. CT head, 10/10/2025: 1. No acute intracranial abnormality. 2. 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 3. Likely chronic right cerebellar infarct vital signs Vital Sign Date Time Temp Pulse Resp B/P (MAP) Pulse Ox O2 Delivery O2 Flow Rate FiO2 10/15/25 20:27 83 22 137/66 (89) 100 40 10/15/25 20:00 Mechanical Ventilator+ 10/15/25 16:00 98.1 98.1 Total Intake and Output 10/14/25 10/14/25 10/15/25 15:00 23:00 07:00 Intake Total 100 ml 370 ml 507 ml Output Total 2225 ml 150 ml Balance 100 ml -1855 ml 357 ml medications Current Medications Medications Dose Ordered Sig/Esteban Route Start Time Stop Time Status Last Admin Dose Admin Diagnostic Test (Pha) 1 strip ACHS 09/26/25 22:00 10/15/25 16:55 1 STRIP Insulin Human Regular ACHS SC 09/26/25 22:00 10/13/25 21:05 2 UNITS Dextrose 50 ml UD PRN IV 09/26/25 21:15 Sodium Chloride 10 ml Q8HR IV 09/26/25 22:00 10/15/25 14:29 10 ML Sevelamer HCl 800 mg TIDWM PO 09/29/25 18:00 10/14/25 17:48 800 MG Amino Acid Protein 30 ml BID PO 09/30/25 22:00 10/14/25 20:58 30 ML Multivit/Ca Carb/ B Cmplx/FA/Prenat 1 tab DAILY PO 09/30/25 11:12 10/15/25 09:34 1 TAB Epinephrine HCl 250 ml @ 7.5 mls/hr Q24H IV 10/01/25 15:15 10/01/25 15:39 15 MLS/HR Norepinephrine Bitartrate 250 ml @ 3.75 mls/hr Q24H IV 10/01/25 15:15 10/06/25 09:44 3.75 MLS/HR Albumin Human 100 ml @ 100 mls/hr ANABELLA PRN IV 10/03/25 09:45 10/07/25 17:42 100 MLS/HR Aspirin 81 mg DAILY NG 10/05/25 10:00 10/15/25 09:34 81 MG Enteral Nutritional Formula 1,000 ml 40ML/HR GT 10/04/25 18:30 10/14/25 14:15 1,000 ML Famotidine 10 mg HS IV 10/07/25 22:00 10/14/25 20:57 10 MG Albuterol 2.5 mg Q6HR NEB 10/08/25 12:00 10/15/25 18:50 2.5 MG Ipratropium [place] 0.5 mg Q6HR NEB 10/08/25 12:00 10/15/25 18:50 0.5 MG Artificial Tears 2 drop Q2HP PRN EACHEYE 10/08/25 14:30 Levetiracetam 100 ml @ 400 mls/hr BID IV 10/11/25 22:00 10/15/25 09:34 400 MLS/HR Lorazepam 1 mg Q5MINP PRN IV 10/11/25 21:00 Epoetin Mohan-epbx 10,000 unit MWF@2100 SC 10/12/25 21:00 10/14/25 20:57 10,000 UNIT Gentamicin Sulfate 0 ml @ 0 mls/hr PER PHARMACY IV 10/12/25 18:15 Cancel Sodium Chloride 10 ml QSHIFT@10,22 IV 10/15/25 22:00 objective The patient is well-nourished and well-developed with no distress. The patient is intubated Superficial skin lesions of different ages in the feet MENTAL STATUS: Subjective CRANIAL NERVES: Pupils are equal, round and reactive. Possible conjugated eye movement, he blinks. No signs of facial weakness. There are gagging or coughing reflexes SENSATION: No responses to pain stimuli. MOTOR: Normal tone in the upper and lower extremity. Normal muscle bulk. No fasciculations. Subjective REFLEXES: Deep tendon reflexes are symmetrical. No pathological reflexes. CEREBELLAR/COORDINATION: Deferred GAIT/STATION: deferred. laboratory and microbiology Laboratory Tests 10/15/25 03:40 Test 10/15/25 03:40 Range/Units Serum Glucose 106 74-106 mg/dL Problem List Altered mental status Hypoxic encephalopathy Metabolic encephalopathy Cardiopulmonary arrest Status post CPR Chronic multiple strokes Grand mal seizure Diabetic polyneuropathy Restless leg syndrome Wound/wound infection Assessment/Plan Monitoring Supportive treatment ICU care Follow-up lab Stabilize vitals Respiratory support/vent management IV antibiotics Aspirin 81 mg daily Keppra 500 mg b.i.d. IV for now, back to Trileptal 450 mg b.i.d. later Ativan for seizure breakthrough Wound care More recommendation per clinical course This medical document was created using an electronic medical record system with [employer] dictation system. Although this document has been carefully reviewed, there may still be some phonetic and typographical errors. These areas are purely typographical due to imperfections of the software programs, and do not reflect any compromise in the patient's medical care. Prognosis poor Dietary Evaluation Review Comments: Nutrition Recommendation: 1) CCHO 75gm + renal standard diet 2) Pro-stat 1 pk BID 3) Nephro-nellie 1 tab daily 4) Monitor PO intake, lab values, weight trend, and I/O Expected Outcomes/Goals: Wound to improve Intake to meet >75% estimated needs FU 3-5 days Plan discussed with: Other PETER MUÑOZ MD Oct 15, 2025 21:32
--- NOTE | 2025-10-15 22:58 | DVHPN2 ---
Progress Note - Dictate Date Seen: Oct 15, 2025 Has the PT tested + for MRSA If YES, has PT been informed?: No Medical Necessity Reason Pt with a Central, PICC or Fol: Yes The following are medically ne: Central Line, Rosales Catheter Reason for rosales catheter: Strict I&O Subjective Patient was seen and evaluated in follow up in the ICU. Patient is intubated and sedated on ventilator. 40% FiO2. Patient received hemodialysis yesterday with 2 L of fluid removed. HGB 8.3, HCT 25.1, BUN 34, [employer] 4.19. Chest x-ray shows cardiomegaly and pulmonary vascular congestion and right lower lung zone atelectasis. vital signs Vital Sign Date Time Temp Pulse Resp B/P (MAP) Pulse Ox O2 Delivery O2 Flow Rate FiO2 10/15/25 13:00 98 11 130/69 (89) 100 10/15/25 12:00 96.9 96.9 10/15/25 12:00 40 10/15/25 11:53 Mechanical Ventilator+ Total Intake and Output 10/14/25 10/14/25 10/15/25 15:00 23:00 07:00 Intake Total 100 ml 370 ml 507 ml Output Total 2225 ml 150 ml Balance 100 ml -1855 ml 357 ml medications Current Medications Medications Dose Ordered Sig/Esteban Route Start Time Stop Time Status Last Admin Dose Admin Diagnostic Test (Pha) 1 strip ACHS 09/26/25 22:00 10/15/25 05:30 1 STRIP Insulin Human Regular ACHS SC 09/26/25 22:00 10/13/25 21:05 2 UNITS Dextrose 50 ml UD PRN IV 09/26/25 21:15 Sodium Chloride 10 ml Q8HR IV 09/26/25 22:00 10/15/25 05:30 10 ML Sevelamer HCl 800 mg TIDWM PO 09/29/25 18:00 10/14/25 17:48 800 MG Amino Acid Protein 30 ml BID PO 09/30/25 22:00 10/14/25 20:58 30 ML Multivit/Ca Carb/ B Cmplx/FA/Prenat 1 tab DAILY PO 09/30/25 11:12 10/15/25 09:34 1 TAB Epinephrine HCl 250 ml @ 7.5 mls/hr Q24H IV 10/01/25 15:15 10/01/25 15:39 15 MLS/HR Norepinephrine Bitartrate 250 ml @ 3.75 mls/hr Q24H IV 10/01/25 15:15 10/06/25 09:44 3.75 MLS/HR Albumin Human 100 ml @ 100 mls/hr ANABELLA PRN IV 10/03/25 09:45 10/07/25 17:42 100 MLS/HR Aspirin 81 mg DAILY NG 10/05/25 10:00 10/15/25 09:34 81 MG Enteral Nutritional Formula 1,000 ml 40ML/HR GT 10/04/25 18:30 10/14/25 14:15 1,000 ML Famotidine 10 mg HS IV 10/07/25 22:00 10/14/25 20:57 10 MG Albuterol 2.5 mg Q6HR NEB 10/08/25 12:00 10/15/25 12:00 2.5 MG Ipratropium [place] 0.5 mg Q6HR NEB 10/08/25 12:00 10/15/25 12:00 0.5 MG Artificial Tears 2 drop Q2HP PRN EACHEYE 10/08/25 14:30 Propofol 100 ml @ 3.966 mls/ hr Q24H IV 10/08/25 19:00 10/08/25 21:58 7.932 MLS/HR Levetiracetam 100 ml @ 400 mls/hr BID IV 10/11/25 22:00 10/15/25 09:34 400 MLS/HR Lorazepam 1 mg Q5MINP PRN IV 10/11/25 21:00 Epoetin Mohan-epbx 10,000 unit MWF@2100 SC 10/12/25 21:00 10/14/25 20:57 10,000 UNIT Gentamicin Sulfate 0 ml @ 0 mls/hr PER PHARMACY IV 10/12/25 18:15 Cancel objective GENERAL: Ill appearing, intubated on ventilator. Morbidly obese. EYES: PERRL, EOMI. Anicteric. HENT: Moist mucous membranes. LUNGS: Decreased breath sounds. CARDIOVASCULAR: Regular rate and rhythm. ABDOMEN: Soft, non-tender and non-distended. EXTREMITIES: No edema. SKIN: Warm, dry. laboratory and microbiology Laboratory Tests 10/15/25 03:40 Test 10/15/25 03:40 Range/Units Serum Glucose 106 74-106 mg/dL Problem List Acute syncopal episode. Status post cardiac arrest x3. ESRD on hemodialysis. Hypertension. Peripheral neuropathy. Severe peripheral artery disease. Acute on chronic congestive heart failure exacerbation. History of CVA. Anemia of chronic disease. Diabetes with severe diabetic nephropathy. History of pacemaker. Morbidly obese. Decompensated heart failure with ejection fraction less than 25%. Encephalomalacia. Hyperphosphatemia. Hyperparathyroidism. Assessment/Plan Continued all current supportive medical care. Aspirin. IV antibiotics as ordered. Morphine and Lovely for pain management. Vasopressors for hemodynamic support. Additional plan as per the hospital course. Critical care time of 45 minutes provided to include time spent evaluation of patient at bedside, when appropriate patient/family education for diagnosis, treatment plan, review of pertinent medical information and discussion of care with specialty providers and PCP. Mechanical ventilator parameters, treatment and adjustments have personally been reviewed by me and treatment plan by technical coordinator has also been reviewed. Dietary Evaluation Review Comments: Nutrition Recommendation: 1) CCHO 75gm + renal standard diet 2) Pro-stat 1 pk BID 3) Nephro-nellie 1 tab daily 4) Monitor PO intake, lab values, weight trend, and I/O Expected Outcomes/Goals: Wound to improve Intake to meet >75% estimated needs FU 3-5 days Plan discussed with: Other MATTHEW CIFUENTES MD Oct 15, 2025 13:26
[2025-10-16] VITALS (109 sets, daily range): BP systolic 111–156; BP diastolic 50–87; PULSE 82–133; RESP 8–25; TEMP 98.6–98.9; O2SAT 77–100
[2025-10-16 02:59] LABS: Hemoglobin 8.2 g/dL (13.5-17.5); Nucleated Red Blood Cells % 0.0 %
[2025-10-16 03:03] LABS: Hematocrit 25.6 % (41.0-53.0); Mean Corpuscular Hemoglobin 31.7 pg (28.0-32.0); Mean Corpuscular Volume 98.8 fL (80.0-100.0)
[2025-10-16 03:13] LABS: Chloride 102 mmol/L (98-107); Potassium 3.6 mmol/L (3.5-5.1); Sodium 143 mmol/L (136-145)
[2025-10-16 03:14] LABS: Anion Gap 11 (5-15); Calcium 9.2 mg/dL (8.7-10.4); Carbon Dioxide 30 mmol/L (20-31)
[2025-10-16 03:19] LABS: BUN/Creatinine Ratio 7.6 (10.0-20.0)
[2025-10-16 03:20] LABS: Blood Urea Nitrogen 26 mg/dL (9-23); Glucose 131 mg/dL (74-106)
[2025-10-16 06:02] LABS: Base Excess 5.9 mmol/L (-2.0-3.0)
--- NOTE | 2025-10-16 06:25 | DVH ---
CHEST RADIOGRAPH INDICATION: pna TECHNIQUE: Single frontal view of the chest was obtained COMPARISON: XY CHEST PORTABLE on DOS: 10/15/25, XY CHEST PORTABLE on DOS: 10/14/25, XY CHEST PORTABLE on DOS: 10/13/25, XY CHEST XRAY 1 VIEW on DOS: 10/12/25, XY CHEST PORTABLE on DOS: 10/11/25 FINDINGS: Lines and Tubes: Unchanged. Lungs: Stable appearing diffuse increased prominence of the pulmonary vasculature. Small right pleural effusion. No pneumothorax. Cardiomediastinal contours: Cardiomegaly. Bones: Unremarkable IMPRESSION: 1. Stable pulmonary vascular congestion, small right pleural effusion and cardiomegaly. 2. Lines and tubes unchanged.
--- NOTE | 2025-10-16 08:59 | DVH ---
EXAM: US US GUIDED VASCULAR ACCESS CLINICAL HISTORY: picc line placement COMPARISON: US BI LAT UPPER DVT on DOS: 10/13/25, US RT UPPER DVT on DOS: 06/03/25, US US GUIDED VASCULAR ACCESS on DOS: 06/02/25, US RT UPPER DVT on DOS: 01/25/24 FINDINGS: Targeted sonographic evaluation of the arm vein was obtained utilizing grayscale and color Doppler imaging. IMPRESSION: Sonographic assistance for peripherally inserted central line placement. Please refer to procedural report for detailed findings.
--- NOTE | 2025-10-16 09:09 | DVHPNRES ---
Progress Note Date Seen: Oct 16, 2025 Resident Creating Document: YOBANI GOETZ RESIDENT Has the PT tested + for MRSA If YES, has PT been informed?: No Medical Necessity Reason Pt with a Central, PICC or Fol: Yes The following are medically ne: Central Line, Rosales Catheter Reason for rosales catheter: Strict I&O Subjective Review of Systems Mr. Zamora is a 59 year old male with PMHx of ESRD with recent initiation of dialysis approximately 2 weeks ago , HFrEF with pacemaker placement, CVA in 2012, type 2 diabetes mellitus, gout, and hypertension, who presented to [facility] due to witnessed cardiopulmonary arrest during dialysis on 09/26/2025. At the time of evaluation the patient is sedated and intubated, majority of history is taken from previous medical record and his sister, Claudia Burnett. Per record, the patient became unresponsive during hemodialysis, CPR was intiated by bystanders and AED was used, by the time EMS arrived on scene the patient was found A&Ox4, GCS15, and moaning in pain. On evaluation in the ED, patient was complaining of dyspnea and chest wall pain. He was afebrile, normocardic with pacedc rhythm, hypertensive, and saturating adequately on room air. EKG showed paced rhythm with widened QTc. Initial labs are significant for normocytic anemia, hypokalemia, creatinine 6.85, BUN 43, and BNP 1232.11. Troponins were negative. UA without alteration. Chest xray significant for lungs with bilateral patchy airspace opacities, prominent pulmonary vasculature, with small bilateral pleural effusions. Head CT shows bilateral cerebral encephalomalacia and mild global cerebral volume loss without intracranial hemorrhage or mass effect. The patient was started on IV diuresis and admitted for further work up and managment. He was evaluated by cardiology who continued diuresis. The patient was evaluated by nephrology who state that given diminished cardiac function likely patient cannot tolerate large ultrafiltration goals. He was scheduled for further dialysis, having undergone dialysis on 09/28/2025 without issue. He was receiving dialysis on 10/01/2025 when he became bradycardic and went into asystole. Code blue was called and CPR was intiated with ROSC achieved after 7 minutes of CPR. He was transferred to the ICU and he entered asystole two more times in a span of 15 minutes a with ROSC achieved after 11 minutes of CPR and at 2 minutes of CPR respectively. He was intubated and started on pressors, sedation, antibiotics, and bicarbonate drip. On initial evaluation in the ICU, the patient is intubated, sedated, and mechanically ventilated, on levophed 2 mcg, pupils are reactive, no response to painful stimulus, cough and gag are present. Labs are significant for normocytic anemia, worsening thrombocytopenia, and worsening renal function. ABG is significant for metabolic alkalosis. Most recent chest xray shows worsening congestion. Past medical history: ESRD on dialysis, HFrEF, CVA in 2012, Type 2 diabetes mellitus, and hypertension Past surgical history: Pacemaker placement and replacement, Right femoral fracture repair Allergies: Denies Social: Per sister, the patient currently smokes marijuana, denies other drug use. Patient currently lives with his mother and his brother. Home meds: Famotidine, Allopurinol, pregabalin, furosemide, sevelamer, metoprolol, and lokelma : Patient seen and examined at bedside. Started patient on gentamicin per pharmacy. Unable to complete MRI brain as pacemaker leads not compatible with MRI per [employer]. Infectious Disease consult. Decreased FiO2. 10/13/2025: Patient seen and examined at bedside. Discontinued all antibiotics per Infectious Disease recommendation. PICC line orders as per nephrology in order to discontinue femoral TLC. Precedex at 0.3. Left voicemail for next of kin Lilian Zamora at [phone]. Detailed conversation held with patient's sister at [phone], she would prefer extubation with a possibility of re- intubation if respiratory distress persists. Patient's sister like to come in tomorrow and have a discussion with Dr. Walter 10/14/2025: Patient seen and examined at bedside, unable to obtain PICC line as left basilic vein thrombus noted. Detailed conversation held with patient's sister at bedside where prognosis was explained, per patient's sister would like to wait until Sunday before deciding for compassionate extubation versus tracheostomy. 10/15/2025: Patient seen and examined at bedside, physical exam remains the same as prior. Last bowel movement last night, received hemodialysis yesterday with 2 L of fluid removed, currently off of Precedex. We will try to get thigh PICC line. 10/16/2025: Patient seen and examined at bedside, physical exam unchanged from prior. Currently on Precedex 0.2 mcg, noted to be in respiratory alkalosis. Some abdominal distention noted today, ordered KUB nonspecific bowel gas pattern. Sister changed code status to DNR. Objective vital signs Vital Sign Date Time Temp Pulse Resp B/P (MAP) Pulse Ox O2 Delivery O2 Flow Rate FiO2 10/16/25 08:18 88 20 111/58 (75) 100 40 10/16/25 06:00 Mechanical Ventilator+ 10/15/25 23:35 40.0 10/15/25 20:00 98.0 98.0 Total Intake and Output 10/15/25 10/15/25 10/16/25 15:00 23:00 07:00 Intake Total 119.83 ml 472.88 ml 276.27 ml Output Total 2100 ml 100 ml Balance 119.83 ml -1627.12 ml 176.27 ml medications Current Medications Medications Dose Ordered Sig/Esteban Route Start Time Stop Time Status Last Admin Dose Admin Diagnostic Test (Pha) 1 strip ACHS 09/26/25 22:00 10/16/25 06:25 1 STRIP Insulin Human Regular ACHS SC 09/26/25 22:00 10/13/25 21:05 2 UNITS Dextrose 50 ml UD PRN IV 09/26/25 21:15 Sodium Chloride 10 ml Q8HR IV 09/26/25 22:00 10/16/25 07:31 10 ML Sevelamer HCl 800 mg TIDWM PO 09/29/25 18:00 10/16/25 07:30 800 MG Amino Acid Protein 30 ml BID PO 09/30/25 22:00 10/16/25 07:31 30 ML Multivit/Ca Carb/ B Cmplx/FA/Prenat 1 tab DAILY PO 09/30/25 11:12 10/16/25 07:30 1 TAB Epinephrine HCl 250 ml @ 7.5 mls/hr Q24H IV 10/01/25 15:15 10/01/25 15:39 15 MLS/HR Norepinephrine Bitartrate 250 ml @ 3.75 mls/hr Q24H IV 10/01/25 15:15 10/06/25 09:44 3.75 MLS/HR Albumin Human 100 ml @ 100 mls/hr ANABELLA PRN IV 10/03/25 09:45 10/07/25 17:42 100 MLS/HR Aspirin 81 mg DAILY NG 10/05/25 10:00 10/16/25 07:30 81 MG Enteral Nutritional Formula 1,000 ml 40ML/HR GT 10/04/25 18:30 10/16/25 06:36 1,000 ML Famotidine 10 mg HS IV 10/07/25 22:00 10/15/25 21:31 10 MG Albuterol 2.5 mg Q6HR NEB 10/08/25 12:00 10/16/25 05:48 2.5 MG Ipratropium [place] 0.5 mg Q6HR NEB 10/08/25 12:00 10/16/25 05:48 0.5 MG Artificial Tears 2 drop Q2HP PRN EACHEYE 10/08/25 14:30 Levetiracetam 100 ml @ 400 mls/hr BID IV 10/11/25 22:00 10/16/25 07:30 400 MLS/HR Lorazepam 1 mg Q5MINP PRN IV 10/11/25 21:00 Epoetin Mohan-epbx 10,000 unit MWF@2100 SC 10/12/25 21:00 10/14/25 20:57 10,000 UNIT Gentamicin Sulfate 0 ml @ 0 mls/hr PER PHARMACY IV 10/12/25 18:15 Cancel Sodium Chloride 10 ml QSHIFT@10,22 IV 10/15/25 22:00 10/16/25 07:27 10 ML Examination General: Patient is intubated, mechanically ventilated, non-reactive to painful stimulus HEENT: Normocephalic, atraumatic, 3 mm very sluggish, no EOM, eyes open and moving, unable to track objects, ET tube in place, orogastric tube in palce Respiratory/pulmonary: Bilateral chest expansion, decreased breath sounds bilaterally, wheezing in bilateral upper lobes Cardiovascular: Normal RRR Abdomen: Obese, Abdomen nondistended, normal bowel sounds no grimacing is observed on palpation, no palpable masses. Extremities: No deformities, bilateral lower extremity pedal edema 2+ up to upper thighs, with scrotal swelling, large red circular ulcers present in right calf, presence of femoral CVC in right groin region, pulses are present, blisters present on left forearm. Left lower extremity superficial ulcer on the lateral aspect of the leg. Right lower extremity 2 superficial ulcers 1 on the medial leg and 1 on the dorsal foot. Skin: Saccrococcyx 2.5x1.2x0.5cm, moist, open, full-thickness wound with moist red granulation tissue in the wound base and a mix of pale pink collagen scar tissue and dark brown adhered eschar material on the periwound area, there is minimal odor., darkened eschar lesions on his toes Neurological: hypoactive Gag and cough noted, patient blinks but does not track movements with his eyes, does not respond to verbal commands, no response to painful stimulus. Penile ulcer noted under the foreskin laboratory and microbiology Laboratory Tests 10/16/25 02:48 Test 10/16/25 02:48 Range/Units Serum Glucose 131 H 74-106 mg/dL Microbiology Date/Time Source Procedure Growth Status 10/08/25 22:28 Urine - Rosales [place] Urine Culture - Final Complete 10/06/25 13:00 Sacrum Gram Stain - Final Resulted 10/06/25 13:00 Wound Culture - Preliminary Enterobacter cloacae Enterococcus faecalis - VRE Resulted 10/02/25 17:33 Blood Blood Culture - Final NO GROWTH AFTER 5 DAYS OF INCUBATION. Complete Labs and/or images reviewed: Labs reviewed by me, Image(s) reviewed by me Problem List/Assessment/Plan Problem List/Assessment/Plan Neurology # Sedated - Precedex at 0.3 mg # Encephalomalacia - Head CT 09/26/2025: Bilateral cerebral encephalomalacia # Global cerebral volume loss - Head CT 09/26/2025: Mild global cerebral volume loss # epilepsy - Oxycarbazepine - held # Concern for anoxic brain injury - Head CT 10/06/25: No acute intracranial hemorrhage or mass effect.Age indeterminate small infarct involving the right cerebellum, favored to be chronic. If there is clinical concern for acute infarct, recommend MRI for further evaluation.Chronic bilateral parietal and occipital lobe infarcts. - Despite being off sedation for 48 hours, patient still has no meaningful neurologic response. . Neurology has been consulted - unable to obtain MRI as per [employer] pacemaker leads are older generation and not MRI compatible. #History of CVA in 201210/10/25 CT head negative for acute process. - Neurology consult - Off sedation since 10/08 Cardiovascular #S/p Cardiac arrest with ROSC - 09/26/2025: Witnessed at dialysis center, bystanders started CPR and AED use, ROSC achieved before EMS arrived - 10/01/2025: Rhythm: Asystole, ROSC achieved after 7 minutes of CPR - 10/01/2025: Rhythm: Asystole, ROSC achieved after 11 minutes of CPR - 10/01/2025: Rhythm: Asystole, ROSC achieved after 2 minutes of CPR # Cardiogenic shock # Lactic acidosis likely due to above - wound culture growing Enterobacter cloacae MDR, VRE Enterococcus faecalis. - Levophed 2 mcg, now discontinued - Epinephrine has been discontinued # Acute on chronic HFrEF - BNP 1232.11 - Echocardiogram 08/22/2025: LVEF of 20-25%, Severe LV dysfunction, moderate mitral regurgitation - Per cardiology: Diuretics with lasix, aspirin, nitroglycerin SL - Lasix 40 mg IV daily - S/p pacemaker placement # Bilateral pleural effusion - Chest xray 10/12/2025: No significant interval change. #Hypertension - Amlodipine held by nephrology Respiratory # Acute hypoxic hypercapnic respiratory failure # Ventilator -Intubated (10/01/2025) -On [facility] vent : VCAC Mode RR 18 TV 450ml, PEEP Of 8 and FiO2 of 4045% - 8.0 endotracheal tube, 24 at the lip - Cutlures from sputum: Normal orophargyngeal eplidio GI # Peptic ulcer prophylaxis -Pantoprazole 40 mg IV daily # Rosales catheter draining clear urine placed on 10/09/2025 Nephrology # ESRD on hemodialysis - Received dialysis without complication and without pressor support on 10/13/2025 with 2 L removed - Strict Is and Os # Severe diabetic nephropathy #Acute metabolic alkalosis # Secondary hyperparathyroidism # Hypocalcemia - Monitor - Calcitrol # Hyperphosphatemia - Phosphate binders Infectious disease # 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 # Possible cellulitis secondary to lower extremity ulcers, , leg wound growing E coli # Complicated UTI growing MDR cloacae, VRE - IV linezolid, now discontinued - started patient on IV gentamicin per pharmacy, now discontinued - consulted infectious disease; per ID to discontinue systemic antibiotics likely colonization #Septic vs Cardiogenic shock - blood Cultures: Negative at 72 hours - Ceftriaxone 1 g IV daily, now discontinue Hem/onc #Thrombocytopenia, improved - Monitor #Normocytic anemia, likely due to chronic disease - Monitor Hand H - Per nephrology: Epogen 91267 SQ 3 weekly as tolerated Endocrine #Type 2 diabetes mellitus - SSI -Accu cheks MSK # Gout - Allopurinol 300 mg PO daily Skin # Circular ulcers present on right leg, present on admission # Possible Sacral Ulcer stage 2, present on admission - Wound culture: VRE - Meropenem 500 mg daily, discontinued - Linezolid 600 mg IV q 12 hours , now discontinued Marijuana use DVT prophylaxis: SCD PUD prophylaxis: Pantoprazole 40 mg IV daily Lines -R femoral central line: 10/01/2025, discontinued on 10/15/2025. - thigh PICC line placed on 10/15/2025 -Rosales catheter 10/09/2025 -ET tube: 10/01/2025 - Tunneled catheter in right pectoral region Patient has right femoral line given the presence of right tunnel catheter in right pectoral region and pacemaker in left field. We will give the patient more time for sedation to wear off for accurate neurological evaluation. [facility] Fentanyl Discontinued Propofol: dc'ed Bicarbonate drip discontinued Levophed discontinued Critical care time 82 minutes excluding procedure. Code status discussed greater than 20 minutes: Full CODE STATUS. Detailed conversation held with patient's sister at bedside where prognosis was explained, per patient's sister would like to wait until Sunday before deciding for compassionate extubation versus tracheostomy. Plan discussed with Dr. Rivera Plan discussed with: Other (RN) My Orders My Orders Orders - YOBANI GOETZ Procedure Category Date Status Time Chest Portable XY 10/16/25 Resulted 04:00 Abg W/ Co-Ox RT 10/16/25 Logged 04:00 Dietary Evaluation Review Comments: Nutrition Recommendation: 1) CCHO 75gm + renal standard diet 2) Pro-stat 1 pk BID 3) Nephro-nellie 1 tab daily 4) Monitor PO intake, lab values, weight trend, and I/O Expected Outcomes/Goals: Wound to improve Intake to meet >75% estimated needs FU 3-5 days Visit Coding STANDARD RES Billing Provider: JEREMIAH RIVERA MD Date of Service if different f: Oct 16, 2025 Common Visit Codes: 36085-EHPUZYHI CARE 30-74 MIN, 00937-[id number] CARE-EACH +30MIN YOBANI GOETZ Oct 16, 2025 09:09
--- NOTE | 2025-10-16 13:44 | DVH ---
Date: 10/16/2025 12:01 PM Examination: XY KUB ABDOMEN SINGLE VIEW History: distended abdomen COMPARISON: XY KUB ABDOMEN SINGLE VIEW on DOS: 10/01/25 TECHNIQUE: Frontal views of the abdomen was obtained. FINDINGS: Bowel gas pattern is unremarkable. Catheter in place on the left The lung bases are unremarkable. No acute osseous abnormality identified. IMPRESSION: 1. Nonobstructive bowel gas pattern. 2. Catheter in place on the left
--- NOTE | 2025-10-16 14:28 | DVHPN2 ---
Progress Note - Dictate Date Seen: Oct 16, 2025 Has the PT tested + for MRSA If YES, has PT been informed?: No Medical Necessity Reason Pt with a Central, PICC or Fol: Yes The following are medically ne: Central Line, Rosales Catheter Reason for rosales catheter: Strict I&O Subjective Mr. Zamora is a right-handed gentleman with a history of hypertension, diabetes, coronary artery disease, congestive heart failure, chronic kidney failure, chronic leg edema, obesity, stroke, RLS, he was brought to the [facility] on 09/26/2025 with a chief complaint of cardiopulmonary arrest. I saw him on 01/18/2024 for seizure activity I have seen and examined the patient, I have talked to his nurse, he is responsive to eye opening, but he does not responsive to verbal stimuli, not track, no spontaneous extremity movement track, Urinalysis, 10/08/2025: WBC: 1809, urine leukocyte esterase: 3+ ABG, 10/01/2025: Respiratory acidosis WBC/HB/PLT/MCV, 10/11/2025: 7/8/166/97.4 BUN/CR, 10/11/2025: 57/6.09 GFR, 10/11/2025: 10 HGB A1c, 08/17/2025: 7.4 Liver function tests, 10/11/2025: Unremarkable TG/HDL/LDL/HDL, 01/14/2024: 77/162/103/48 EEG, 10/12/2025: This is a moderately abnormal EEG with epileptiform discharges Chest x-ray, 10/01/2025: 1. Endotracheal tube tip projects at the level of the tiburcio. Recommend retraction by 2 cm. 2. Remaining Lines and tubes as above. 3. Moderate multifocal bilateral pulmonary airspace disease and pulmonary vascular congestion Chest x-ray, 10/11/2025: Endotracheal tube, enteric catheter in satisfactory position. Right tunneled central venous catheter and left chest wall pacemaker, unchanged. CT head, 10/10/2025: 1. No acute intracranial abnormality. 2. 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 3. Likely chronic right cerebellar infarct vital signs Vital Sign Date Time Temp Pulse Resp B/P (MAP) Pulse Ox O2 Delivery O2 Flow Rate FiO2 10/16/25 14:00 18 99 Mechanical Ventilator+ 30 30 10/16/25 14:00 90 155/71 (99) 10/16/25 12:00 98.6 98.6 10/15/25 23:35 40.0 Total Intake and Output 10/15/25 10/15/25 10/16/25 15:00 23:00 07:00 Intake Total 119.83 ml 472.88 ml 282.88 ml Output Total 2100 ml 100 ml Balance 119.83 ml -1627.12 ml 182.88 ml medications Current Medications Medications Dose Ordered Sig/Esteban Route Start Time Stop Time Status Last Admin Dose Admin Diagnostic Test (Pha) 1 strip ACHS 09/26/25 22:00 10/16/25 10:42 1 STRIP Insulin Human Regular ACHS SC 09/26/25 22:00 10/13/25 21:05 2 UNITS Dextrose 50 ml UD PRN IV 09/26/25 21:15 Sodium Chloride 10 ml Q8HR IV 09/26/25 22:00 10/16/25 07:31 10 ML Sevelamer HCl 800 mg TIDWM PO 09/29/25 18:00 10/16/25 10:45 800 MG Amino Acid Protein 30 ml BID PO 09/30/25 22:00 10/16/25 07:31 30 ML Multivit/Ca Carb/ B Cmplx/FA/Prenat 1 tab DAILY PO 09/30/25 11:12 10/16/25 07:30 1 TAB Epinephrine HCl 250 ml @ 7.5 mls/hr Q24H IV 10/01/25 15:15 10/01/25 15:39 15 MLS/HR Norepinephrine Bitartrate 250 ml @ 3.75 mls/hr Q24H IV 10/01/25 15:15 10/06/25 09:44 3.75 MLS/HR Albumin Human 100 ml @ 100 mls/hr ANABELLA PRN IV 10/03/25 09:45 10/07/25 17:42 100 MLS/HR Aspirin 81 mg DAILY NG 10/05/25 10:00 10/16/25 07:30 81 MG Enteral Nutritional Formula 1,000 ml 40ML/HR GT 10/04/25 18:30 10/16/25 06:36 1,000 ML Famotidine 10 mg HS IV 10/07/25 22:00 10/15/25 21:31 10 MG Albuterol 2.5 mg Q6HR NEB 10/08/25 12:00 10/16/25 11:48 2.5 MG Ipratropium [place] 0.5 mg Q6HR NEB 10/08/25 12:00 10/16/25 11:48 0.5 MG Artificial Tears 2 drop Q2HP PRN EACHEYE 10/08/25 14:30 Levetiracetam 100 ml @ 400 mls/hr BID IV 10/11/25 22:00 10/16/25 07:30 400 MLS/HR Lorazepam 1 mg Q5MINP PRN IV 10/11/25 21:00 Epoetin Mohan-epbx 10,000 unit MWF@2100 SC 10/12/25 21:00 10/14/25 20:57 10,000 UNIT Gentamicin Sulfate 0 ml @ 0 mls/hr PER PHARMACY IV 10/12/25 18:15 Cancel Sodium Chloride 10 ml QSHIFT@10,22 IV 10/15/25 22:00 10/16/25 07:27 10 ML objective The patient is well-nourished and well-developed with no distress. The patient is intubated Superficial skin lesions of different ages in the feet MENTAL STATUS: Subjective CRANIAL NERVES: Pupils are equal, round and reactive. He has doll's eye, corneal reflexes. No signs of facial weakness. There are gagging or coughing reflexes SENSATION: No responses to pain stimuli. MOTOR: Normal tone in the upper and lower extremity. Normal muscle bulk. No fasciculations. Subjective REFLEXES: Deep tendon reflexes are symmetrical. No pathological reflexes. CEREBELLAR/COORDINATION: Deferred GAIT/STATION: deferred. laboratory and microbiology Laboratory Tests 10/16/25 02:48 Test 10/16/25 02:48 Range/Units Serum Glucose 131 H 74-106 mg/dL Problem List Altered mental status Hypoxic encephalopathy Metabolic encephalopathy Cardiopulmonary arrest Status post CPR Chronic multiple strokes Grand mal seizure Diabetic polyneuropathy Restless leg syndrome Wound/wound infection Assessment/Plan Monitoring Supportive treatment ICU care Follow-up lab Stabilize vitals Respiratory support/vent management IV antibiotics Aspirin 81 mg daily Keppra 500 mg b.i.d. IV for now, back to Trileptal 450 [facility].d. [facility] More recommendation per clinical course Poor prognosis for recovery This medical document was created using an electronic medical record system with [employer] dictation system. Although this document has been carefully reviewed, there may still be some phonetic and typographical errors. These areas are purely typographical due to imperfections of the software programs, and do not reflect any compromise in the patient's medical care. Prognosis poor Dietary Evaluation Review Comments: Nutrition Recommendation: 1) CCHO 75gm + renal standard diet 2) Pro-stat 1 pk BID 3) Nephro-nellie 1 tab daily 4) Monitor PO intake, lab values, weight trend, and I/O Expected Outcomes/Goals: Wound to improve Intake to meet >75% estimated needs FU 3-5 days Plan discussed with: Other PETER MUÑOZ MD Oct 16, 2025 14:28
--- NOTE | 2025-10-16 14:57 | DVHPN2 ---
Progress Note - Dictate Date Seen: Oct 16, 2025 Has the PT tested + for MRSA If YES, has PT been informed?: No Medical Necessity Reason Pt with a Central, PICC or Fol: Yes The following are medically ne: Central Line, Rosales Catheter Reason for rosales catheter: Strict I&O Subjective Patient was seen and evaluated in follow up in the ICU. Patient is intubated and sedated on ventilator. 30% FiO2. Patient is responsive to eye opening, but is not responsive to verbal stimuli. HGB 8.2, HCT 25.6, BUN 26, VASCULAR ULTRASOUND TECHNOLOGIST 3.41. KUB shows nonobstructive bowel gas pattern. Chest x-ray showed stable pulmonary vascular congestion, small right pleural effusion and cardiomegaly. vital signs Vital Sign Date Time Temp Pulse Resp B/P (MAP) Pulse Ox O2 Delivery O2 Flow Rate FiO2 10/16/25 14:00 18 99 Mechanical Ventilator+ 30 30 10/16/25 14:00 90 155/71 (99) 10/16/25 12:00 98.6 98.6 10/15/25 23:35 40.0 Total Intake and Output 10/15/25 10/15/25 10/16/25 15:00 23:00 07:00 Intake Total 119.83 ml 472.88 ml 282.88 ml Output Total 2100 ml 100 ml Balance 119.83 ml -1627.12 ml 182.88 ml medications Current Medications Medications Dose Ordered Sig/Esteban Route Start Time Stop Time Status Last Admin Dose Admin Diagnostic Test (Pha) 1 strip ACHS 09/26/25 22:00 10/16/25 10:42 1 STRIP Insulin Human Regular ACHS SC 09/26/25 22:00 10/13/25 21:05 2 UNITS Dextrose 50 ml UD PRN IV 09/26/25 21:15 Sodium Chloride 10 ml Q8HR IV 09/26/25 22:00 10/16/25 07:31 10 ML Sevelamer HCl 800 mg TIDWM PO 09/29/25 18:00 10/16/25 10:45 800 MG Amino Acid Protein 30 ml BID PO 09/30/25 22:00 10/16/25 07:31 30 ML Multivit/Ca Carb/ B Cmplx/FA/Prenat 1 tab DAILY PO 09/30/25 11:12 10/16/25 07:30 1 TAB Epinephrine HCl 250 ml @ 7.5 mls/hr Q24H IV 10/01/25 15:15 10/01/25 15:39 15 MLS/HR Norepinephrine Bitartrate 250 ml @ 3.75 mls/hr Q24H IV 10/01/25 15:15 10/06/25 09:44 3.75 MLS/HR Albumin Human 100 ml @ 100 mls/hr ANABELLA PRN IV 10/03/25 09:45 10/07/25 17:42 100 MLS/HR Aspirin 81 mg DAILY NG 10/05/25 10:00 10/16/25 07:30 81 MG Enteral Nutritional Formula 1,000 ml 40ML/HR GT 10/04/25 18:30 10/16/25 06:36 1,000 ML Famotidine 10 mg HS IV 10/07/25 22:00 10/15/25 21:31 10 MG Albuterol 2.5 mg Q6HR NEB 10/08/25 12:00 10/16/25 11:48 2.5 MG Ipratropium [place] 0.5 mg Q6HR NEB 10/08/25 12:00 10/16/25 11:48 0.5 MG Artificial Tears 2 drop Q2HP PRN EACHEYE 10/08/25 14:30 Levetiracetam 100 ml @ 400 mls/hr BID IV 10/11/25 22:00 10/16/25 07:30 400 MLS/HR Lorazepam 1 mg Q5MINP PRN IV 10/11/25 21:00 Epoetin Mohan-epbx 10,000 unit MWF@2100 SC 10/12/25 21:00 10/14/25 20:57 10,000 UNIT Gentamicin Sulfate 0 ml @ 0 mls/hr PER PHARMACY IV 10/12/25 18:15 Cancel Sodium Chloride 10 ml QSHIFT@10,22 IV 10/15/25 22:00 10/16/25 07:27 10 ML objective GENERAL: Ill appearing, intubated on ventilator. Morbidly obese. EYES: PERRL, EOMI. Anicteric. HENT: Moist mucous membranes. LUNGS: Decreased breath sounds. CARDIOVASCULAR: Regular rate and rhythm. ABDOMEN: Soft, non-tender and non-distended. EXTREMITIES: No edema. SKIN: Warm, dry. laboratory and microbiology Laboratory Tests 10/16/25 02:48 Test 10/16/25 02:48 Range/Units Serum Glucose 131 H 74-106 mg/dL Problem List Acute syncopal episode. Status post cardiac arrest x3. ESRD on hemodialysis. Hypertension. Peripheral neuropathy. Severe peripheral artery disease. Acute on chronic congestive heart failure exacerbation. History of CVA. Anemia of chronic disease. Diabetes with severe diabetic nephropathy. History of pacemaker. Morbidly obese. Decompensated heart failure with ejection fraction less than 25%. Encephalomalacia. Hyperphosphatemia. Hyperparathyroidism. Assessment/Plan Continued all current supportive medical care. Aspirin. Vasopressors for hemodynamic support. Additional plan as per the hospital course. Critical care time of 45 minutes provided to include time spent evaluation of patient at bedside, when appropriate patient/family education for diagnosis, treatment plan, review of pertinent medical information and discussion of care with specialty providers and PCP. Mechanical ventilator parameters, treatment and adjustments have personally been reviewed by me and treatment plan by forest management professor has also been reviewed. Dietary Evaluation Review Comments: Nutrition Recommendation: 1) CCHO 75gm + renal standard diet 2) Pro-stat 1 pk BID 3) Nephro-nellie 1 tab daily 4) Monitor PO intake, lab values, weight trend, and I/O Expected Outcomes/Goals: Wound to improve Intake to meet >75% estimated needs FU 3-5 days Plan discussed with: Other MATTHEW CIFUENTES MD Oct 16, 2025 14:43
--- NOTE | 2025-10-16 15:41 | DVHPN2 ---
Progress Note Date Seen: Oct 16, 2025 Has the PT tested + for MRSA If YES, has PT been informed?: No Medical Necessity Reason Pt with a Central, PICC or Fol: Yes The following are medically ne: Central Line, Rosales Catheter Reason for rosales catheter: Strict I&O Subjective Review of Systems: Deferred Objective vital signs Vital Sign Date Time Temp Pulse Resp B/P (MAP) Pulse Ox O2 Delivery O2 Flow Rate FiO2 10/16/25 14:00 18 99 Mechanical Ventilator+ 30 30 10/16/25 14:00 90 155/71 (99) 10/16/25 12:00 98.6 98.6 10/15/25 23:35 40.0 Total Intake and Output 10/15/25 10/15/25 10/16/25 15:00 23:00 07:00 Intake Total 119.83 ml 472.88 ml 282.88 ml Output Total 2100 ml 100 ml Balance 119.83 ml -1627.12 ml 182.88 ml medications Current Medications Medications Dose Ordered Sig/Esteban Route Start Time Stop Time Status Last Admin Dose Admin Diagnostic Test (Pha) 1 strip ACHS 09/26/25 22:00 10/16/25 10:42 1 STRIP Insulin Human Regular ACHS SC 09/26/25 22:00 10/13/25 21:05 2 UNITS Dextrose 50 ml UD PRN IV 09/26/25 21:15 Sodium Chloride 10 ml Q8HR IV 09/26/25 22:00 10/16/25 07:31 10 ML Sevelamer HCl 800 mg TIDWM PO 09/29/25 18:00 10/16/25 10:45 800 MG Amino Acid Protein 30 ml BID PO 09/30/25 22:00 10/16/25 07:31 30 ML Multivit/Ca Carb/ B Cmplx/FA/Prenat 1 tab DAILY PO 09/30/25 11:12 10/16/25 07:30 1 TAB Epinephrine HCl 250 ml @ 7.5 mls/hr Q24H IV 10/01/25 15:15 10/01/25 15:39 15 MLS/HR Norepinephrine Bitartrate 250 ml @ 3.75 mls/hr Q24H IV 10/01/25 15:15 10/06/25 09:44 3.75 MLS/HR Albumin Human 100 ml @ 100 mls/hr ANABELLA PRN IV 10/03/25 09:45 10/07/25 17:42 100 MLS/HR Aspirin 81 mg DAILY NG 10/05/25 10:00 10/16/25 07:30 81 MG Enteral Nutritional Formula 1,000 ml 40ML/HR GT 10/04/25 18:30 10/16/25 06:36 1,000 ML Famotidine 10 mg HS IV 10/07/25 22:00 10/15/25 21:31 10 MG Albuterol 2.5 mg Q6HR NEB 10/08/25 12:00 10/16/25 11:48 2.5 MG Ipratropium [place] 0.5 mg Q6HR NEB 10/08/25 12:00 10/16/25 11:48 0.5 MG Artificial Tears 2 drop Q2HP PRN EACHEYE 10/08/25 14:30 Levetiracetam 100 ml @ 400 mls/hr BID IV 10/11/25 22:00 10/16/25 07:30 400 MLS/HR Lorazepam 1 mg Q5MINP PRN IV 10/11/25 21:00 Epoetin Mohan-epbx 10,000 unit MWF@2100 SC 10/12/25 21:00 10/14/25 20:57 10,000 UNIT Gentamicin Sulfate 0 ml @ 0 mls/hr PER PHARMACY IV 10/12/25 18:15 Cancel Sodium Chloride 10 ml QSHIFT@10,22 IV 10/15/25 22:00 10/16/25 07:27 10 ML Examination: GENERAL:Abnormal, CVS:Abnormal, SKIN:Abnormal, NEURO:Abnormal laboratory and microbiology Laboratory Tests 10/16/25 02:48 Test 10/16/25 02:48 Range/Units Serum Glucose 131 H 74-106 mg/dL Microbiology Date/Time Source Procedure Growth Status 10/08/25 22:28 Urine - Rosales [place] Urine Culture - Final Complete 10/06/25 13:00 Sacrum Gram Stain - Final Resulted 10/06/25 13:00 Wound Culture - Preliminary Enterobacter cloacae Enterococcus faecalis - VRE Resulted 10/02/25 17:33 Blood Blood Culture - Final NO GROWTH AFTER 5 DAYS OF INCUBATION. Complete Problem List/Assessment/Plan Problem List/Assessment/Plan End-stage renal disease on hemodialysis Acute respiratory failure, patient intubated on ventilator Status post cardiac arrest x3 Decompensated heart failure with ejection fraction less than 25% Diabetes with severe diabetic nephropathy Severe peripheral artery disease Anemia of chronic kidney disease Encephalomalacia Hyperphosphatemia Hyperparathyroidism, secondary We will continue daily assessment and scheduled dialysis as per family wish opens eyes today but did not visually track, continue neuro checks unchanged from the last few days fluid removal as tolerated avoid hypotension neuro checks, neurology on case rest of care per critical care and primary Per ICU nurse at bedside patient now DNR Plan discussed with: Other (nurse) Dietary Evaluation Review Comments: Nutrition Recommendation: 1) CCHO 75gm + renal standard diet 2) Pro-stat 1 pk BID 3) Nephro-nellie 1 tab daily 4) Monitor PO intake, lab values, weight trend, and I/O Expected Outcomes/Goals: Wound to improve Intake to meet >75% estimated needs FU 3-5 days VAISHALI SAMAYOA MD Oct 16, 2025 15:41
[2025-10-17] VITALS (110 sets, daily range): BP systolic 129–191; BP diastolic 37–91; PULSE 82–112; RESP 9–26; TEMP 97.2–99.2; O2SAT 88–100
[2025-10-17 04:18] LABS: Hematocrit 26.5 % (41.0-53.0); Hemoglobin 8.4 g/dL (13.5-17.5); Mean Corpuscular Hemoglobin 31.4 pg (28.0-32.0); Mean Corpuscular Volume 99.0 fL (80.0-100.0); Nucleated Red Blood Cells % 0.0 %
[2025-10-17 04:29] LABS: Anion Gap 13 (5-15); Carbon Dioxide 30 mmol/L (20-31); Chloride 101 mmol/L (98-107); Potassium 3.5 mmol/L (3.5-5.1); Sodium 144 mmol/L (136-145)
[2025-10-17 04:31] LABS: Calcium 9.5 mg/dL (8.7-10.4)
[2025-10-17 04:35] LABS: BUN/Creatinine Ratio 7.2 (10.0-20.0)
[2025-10-17 04:38] LABS: Blood Urea Nitrogen 31 mg/dL (9-23); Glucose 119 mg/dL (74-106)
--- NOTE | 2025-10-17 06:12 | DVH ---
CHEST RADIOGRAPH Indication: Intubated Technique: Single frontal view of the chest was obtained COMPARISON: XY CHEST PORTABLE on DOS: 10/16/25, XY CHEST PORTABLE on DOS: 10/15/25, XY CHEST PORTABLE on DOS: 10/14/25, XY CHEST PORTABLE on DOS: 10/13/25, XY CHEST XRAY 1 VIEW on DOS: 10/12/25 FINDINGS: Lines and Tubes: Endotracheal tube is slightly high at the level of the thoracic inlet. Tunneled right central venous catheter in satisfactory position. Left chest wall pacemaker. Lungs: Unchanged pulmonary vascular congestion and low lung volumes. Pleura: No effusion. No pneumothorax. Cardiomediastinal contours: Cardiomegaly. Bones: Unremarkable IMPRESSION: Endotracheal tube is slightly high at the level of the thoracic inlet. Recommend advancement by 2 cm.
--- NOTE | 2025-10-17 07:52 | DVHPN2 ---
[facility] DOS: 10/16/2025 Patient seen and examined at bedside. Intubated on mechanical ventilator. Overnight events reviewed. Reviewed: Care Plan, H&P, Labs, Medications, Previous Orders, Radiology Changes from previous H/P or p: No Changes Eyes: No Pain, No Vision change, No Conjunctivae inflammation, No Eyelid inflammation, No Other, No Redness ENT: No Ear pain, No Ear discharge, No Nose pain, No Nose discharge, No Nose congestion, No Mouth pain, No Mouth swelling, No Throat pain, No Throat swelling, No Other Cardiovascular: Chest Pain; No Palpitations, No Orthopnea, No Paroxysmal Noc. Dyspnea, No Edema, No Lt Headedness, No Other Respiratory: No Cough, No Dry, No Shortness of breath, No SOB with excertion, No Wheezing, No Hemoptysis, No Pleuritic Pain, No Sputum, No Other Gastrointestinal: No Nausea, No Vomiting, No Abdominal Pain, No Diarrhea, No Constipation, No Melena, No Hematochezia, No Other Genitourinary: No Dysuria, No Frequency, No Incontinence, No Hematuria, No Retention; Other (On hemodialysis) Musculoskeletal: No other, No neck pain, No shoulder pain, No arm pain, No back pain, No hand pain, No leg pain, No foot pain Skin: No Rash, No Lesions, No Jaundice, No Bruising, No Other Objective Vitals Vital Signs Date Time Temp Pulse Resp B/P (MAP) Pulse Ox O2 Delivery O2 Flow Rate FiO2 10/17/25 06:45 90 18 152/66 (94) 100 10/17/25 06:32 30 10/17/25 06:00 Mechanical Ventilator+ 10/17/25 04:00 98.2 98.2 10/15/25 23:35 40.0 Intake/Output Intake and Output 10/17/25 07:00 Intake Total 651.03 ml Output Total 250 ml Balance 401.03 ml Intake Oral 200 ml IV Total 152.03 ml Tube Feeding 299 ml Output Urine Total 250 ml # Bowel Movements 1 Exam Gen.: Patient lying in bed in medical ICU. Intubated on mechanical ventilator. Head: Normocephalic, atraumatic. Eyes: PERRLA. Ears: Normal external anatomy. Throat: Endotracheal tube and orogastric tube in place. Neck: Supple, trachea midline. Chest: Transmitted breath sounds bilaterally. Decreased air entry bilaterally. No wheezing. Bibasilar crackles. Cardiovascular: Positive S1, positive S2. Regular rate and rhythm. Abdomen: Positive bowel sounds in all 4 quadrants. Soft, nontender, nondistended. : Salas in place. Normal external genitalia. Rectal: Deferred. Skin: Warm, dry. Intact. Extremities: 2+ radial pulses bilaterally. No lower extremity edema. Neuro: Off sedation Medications Current Medications Medications Dose Ordered Sig/Esteban Route Start Time Stop Time Status Last Admin Dose Admin Diagnostic Test (Pha) 1 strip ACHS 09/26/25 22:00 10/17/25 05:51 1 STRIP Insulin Human Regular ACHS SC 09/26/25 22:00 10/13/25 21:05 2 UNITS Dextrose 50 ml UD PRN IV 09/26/25 21:15 Sevelamer HCl 800 mg TIDWM PO 09/29/25 18:00 10/17/25 07:27 800 MG Amino Acid Protein 30 ml BID PO 09/30/25 22:00 10/17/25 07:27 30 ML Multivit/Ca Carb/ B Cmplx/FA/Prenat 1 tab DAILY PO 09/30/25 11:12 10/17/25 07:27 1 TAB Epinephrine HCl 250 ml @ 7.5 mls/hr Q24H IV 10/01/25 15:15 10/01/25 15:39 15 MLS/HR Norepinephrine Bitartrate 250 ml @ 3.75 mls/hr Q24H IV 10/01/25 15:15 10/06/25 09:44 3.75 MLS/HR Albumin Human 100 ml @ 100 mls/hr ANABELLA PRN IV 10/03/25 09:45 10/07/25 17:42 100 MLS/HR Aspirin 81 mg DAILY NG 10/05/25 10:00 10/17/25 07:27 81 MG Enteral Nutritional Formula 1,000 ml 40ML/HR GT 10/04/25 18:30 10/16/25 06:36 1,000 ML Famotidine 10 mg HS IV 10/07/25 22:00 10/16/25 21:11 10 MG Albuterol 2.5 mg Q6HR NEB 10/08/25 12:00 10/17/25 06:32 2.5 MG Ipratropium [place] 0.5 mg Q6HR NEB 10/08/25 12:00 10/17/25 06:32 0.5 MG Artificial Tears 2 drop Q2HP PRN EACHEYE 10/08/25 14:30 Levetiracetam 100 ml @ 400 mls/hr BID IV 10/11/25 22:00 10/17/25 07:27 400 MLS/HR Lorazepam 1 mg Q5MINP PRN IV 10/11/25 21:00 Epoetin Mohan-epbx 10,000 unit MWF@2100 SC 10/12/25 21:00 10/16/25 21:12 10,000 UNIT Gentamicin Sulfate 0 ml @ 0 mls/hr PER PHARMACY IV 10/12/25 18:15 Cancel Sodium Chloride 10 ml QSHIFT@ IV 10/15/25 22:00 10/17/25 07:27 10 ML Laboratory Results Laboratory Tests 10/17/25 03:49 Chemistry Test 10/17/25 03:49 Calcium Level 9.5 mg/dL (8.7-10.4) Urinalysis Test 10/08/25 22:28 Urine Color Dark-brown (Yellow) Urine Clarity Ex.turbid (Clear) Urine pH 6.0 (5.0-9.0) Urine Specific [place] 1.017 (1.001-1.035) Urine Protein 2+ (Negative) H Urine Ketones Negative (Negative) Urine Blood 3+ /uL (Negative) H Urine Nitrite Negative (Negative) Urine Bilirubin Negative (Negative) Urine Urobilinogen Normal mg/dL (Negative) Urine Leukocyte Esterase 3+ /uL (Negative) Urine RBC 320 /hpf (0 - 3) Urine WBC Clumps Present /hpf (None Seen) Urine Microscopic WBC 1809 /HPF (0-3) H Urine Squamous Epithelial Cells Many /hpf (<5) Urine Amorphous Crystals Few /hpf (None Seen) Urine Bacteria Many /hpf (None Seen) H Urine Mucus Few (None Seen) Urine Glucose Normal mg/dL (Normal) Microbiology Microbiology Date/Time Source Procedure Growth Status 10/08/25 22:28 Urine - [place] Urine Culture - Final Complete 10/06/25 13:00 Sacrum Gram Stain - Final Resulted 10/06/25 13:00 Wound Culture - Preliminary Enterobacter cloacae Enterococcus faecalis - VRE Resulted 10/02/25 17:33 Blood Blood Culture - Final NO GROWTH AFTER 5 DAYS OF INCUBATION. Complete Assessment/Plan Assessment/Plan Impression: Acute hypoxic respiratory failure On mechanical ventilator Lactic acidosis S/p cardiac arrest Acute on chronic CHF ESRD, on hemodialysis DM type II Shock Morbid obesity Cellulitis Sacral ulcer Events: Remains on vent support On AC mode; RR 18, VT 450, PEEP 8, FiO2 30% Off sedation since 10/08/25 On Precedex drip. Patient is responsive to eye opening, but is not responsive to verbal stimuli. Labs reviewed; HGB 8.2, HCT 25.6, BUN 26, HYDRAULIC REPAIRER 3.41. KUB shows nonobstructive bowel gas pattern. Chest x-ray showed stable pulmonary vascular congestion, small right pleural effusion and cardiomegaly. Off pressors, monitor hemodynamics. Patient noted to have increased pressor requirements during HD. Hemodialysis per Nephrology Continue bronchodilators Antiepileptic with Keppra Hemodialysis per Nephrology Follow up Nephrology recs Monitor renal function Salas was exchanged 10/09. Tube feeds for nutritional support Wound care Patient has poor prognosis. Family meeting on Sunday to discuss goals of care. CT head reveals no acute intracranial abnormality. 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 Likely chronic right cerebellar infarct. Labs and imaging reviewed. Rest of plan as noted below. Plan: s/p intubation on mechanical ventilator. On AC mode; RR 18, VT 450, PEEP 8, FiO2 30% Titrate FIO2 to keep O2 saturation above 90%. VAP bundle. Daily ABG and CXR while intubated Pressors for hemodynamic support Titrate to keep mean arterial pressure greater than 65 mmHg. Antibiotics. Follow up cultures. HD per Nephrology Diurese to euvolemia Monitor renal function Monitor electrolytes. Supplement as necessary. Monitor ins and outs. Recommend judicious use of fluids due to CHF. Wound care Monitor lactic acid. Recommend diet and lifestyle modifications for weight reduction Obesity complicates all care GI prophylaxis. DVT prophylaxis. Prognosis: Poor given patient's multiple co-morbidities. Condition: Critical Rest of plan per hospitalist and other consultants. A total of 35 minutes of critical care time was spent reviewing the patient record, examining the patient, making a diagnostic and therapeutic plan, discussing this plan with the medical personnel, following up on diagnostic studies and following the patient for clinical stability excluding any and all procedures. At least 50% of this time was spent in direct, wnuo-ta-swon contact. Thank you, Dr. Cantu, for allowing me to participate in this patient's care. Further recommendations will depend on the patient's clinical course. Please do not hesitate to contact me if you have any questions or concerns. This medical document was created using an electronic medical record system with [employer] dictation system. Although these documentations are being carefully reviewed, there may still be some phonetic and typographical changes. The errors are purely typographical, due to imperfection on the software program, and do not reflect any compromise in the patient's medical care. Plan discussed with: Other (JOYCE Cervantes) Visit Coding Pulmonary Billing Provider: JEREMIAH GAMEZ MD Date of Service if different f: Oct 16, 2025 Common Visit Codes: 49077-[id number] INP/OBS CARE(HIGH), 11571-[id number] CARE 30-74 MIN JEREMIAH GAMEZ MD Oct 17, 2025 07:52
[2025-10-17 08:12] LABS: Base Excess 2.2 mmol/L (-2.0-3.0)
[2025-10-17] MEDS: hydrALAZINE HCL 20 MG/ML VL IV ONE (14:15)
--- NOTE | 2025-10-17 14:15 | DVHPN2 ---
Progress Note Date Seen: Oct 17, 2025 Has the PT tested + for MRSA If YES, has PT been informed?: No Medical Necessity Reason Pt with a Central, PICC or Fol: Yes The following are medically ne: Central Line, Rosales Catheter Reason for rosales catheter: Strict I&O Subjective Review of Systems: Deferred Objective vital signs Vital Sign Date Time Temp Pulse Resp B/P (MAP) Pulse Ox O2 Delivery O2 Flow Rate FiO2 10/17/25 13:33 18 100 Mechanical Ventilator+ 30 30 10/17/25 13:33 92 10/17/25 13:30 157/38 (77) 10/17/25 12:30 98.9 98.9 10/15/25 23:35 40.0 Total Intake and Output 10/16/25 10/16/25 10/17/25 15:00 23:00 07:00 Intake Total 52.88 ml 327.88 ml 276.88 ml Output Total 150 ml 100 ml Balance 52.88 ml 177.88 ml 176.88 ml medications Current Medications Medications Dose Ordered Sig/Esteban Route Start Time Stop Time Status Last Admin Dose Admin Diagnostic Test (Pha) 1 strip ACHS 09/26/25 22:00 10/17/25 11:30 1 STRIP Insulin Human Regular ACHS SC 09/26/25 22:00 10/13/25 21:05 2 UNITS Dextrose 50 ml UD PRN IV 09/26/25 21:15 Sevelamer HCl 800 mg TIDWM PO 09/29/25 18:00 10/17/25 12:21 800 MG Amino Acid Protein 30 ml BID PO 09/30/25 22:00 10/17/25 07:27 30 ML Multivit/Ca Carb/ B Cmplx/FA/Prenat 1 tab DAILY PO 09/30/25 11:12 10/17/25 07:27 1 TAB Epinephrine HCl 250 ml @ 7.5 mls/hr Q24H IV 10/01/25 15:15 10/01/25 15:39 15 MLS/HR Norepinephrine Bitartrate 250 ml @ 3.75 mls/hr Q24H IV 10/01/25 15:15 10/06/25 09:44 3.75 MLS/HR Albumin Human 100 ml @ 100 mls/hr ANABELLA PRN IV 10/03/25 09:45 10/07/25 17:42 100 MLS/HR Aspirin 81 mg DAILY NG 10/05/25 10:00 10/17/25 07:27 81 MG Enteral Nutritional Formula 1,000 ml 40ML/HR GT 10/04/25 18:30 10/16/25 06:36 1,000 ML Famotidine 10 mg HS IV 10/07/25 22:00 10/16/25 21:11 10 MG Albuterol 2.5 mg Q6HR NEB 10/08/25 12:00 10/17/25 12:30 2.5 MG Ipratropium [place] 0.5 mg Q6HR NEB 10/08/25 12:00 10/17/25 12:31 0.5 MG Artificial Tears 2 drop Q2HP PRN EACHEYE 10/08/25 14:30 Levetiracetam 100 ml @ 400 mls/hr BID IV 10/11/25 22:00 10/17/25 07:27 400 MLS/HR Lorazepam 1 mg Q5MINP PRN IV 10/11/25 21:00 Epoetin Mohan-epbx 10,000 unit MWF@2100 SC 10/12/25 21:00 10/16/25 21:12 10,000 UNIT Gentamicin Sulfate 0 ml @ 0 mls/hr PER PHARMACY IV 10/12/25 18:15 Cancel Sodium Chloride 10 ml QSHIFT@10,22 IV 10/15/25 22:00 10/17/25 07:27 10 ML Examination: GENERAL:Abnormal, LUNGS:Abnormal, CVS:Normal, SKIN:Abnormal, NEURO:Abnormal laboratory and microbiology Laboratory Tests 10/17/25 03:49 Test 10/17/25 03:49 Range/Units Serum Glucose 119 H 74-106 mg/dL Microbiology Date/Time Source Procedure Growth Status 10/08/25 22:28 Urine - Rosales Port Urine Culture - Final Complete 10/06/25 13:00 Sacrum Gram Stain - Final Resulted 10/06/25 13:00 Wound Culture - Preliminary Enterobacter cloacae Enterococcus faecalis - VRE Resulted 10/02/25 17:33 Blood Blood Culture - Final NO GROWTH AFTER 5 DAYS OF INCUBATION. Complete Problem List/Assessment/Plan Problem List/Assessment/Plan End-stage renal disease on hemodialysis Acute respiratory failure, patient intubated on ventilator Status post cardiac arrest x3 Decompensated heart failure with ejection fraction less than 25% Diabetes with severe diabetic nephropathy Severe peripheral artery disease Anemia of chronic kidney disease Encephalomalacia Hyperphosphatemia Hyperparathyroidism, secondary Hd schedule sunday We will continue daily assessment and scheduled dialysis as per family wish opens eyes today but did not visually track, continue neuro checks unchanged from the last few days fluid removal as tolerated avoid hypotension neuro checks, neurology on case rest of care per critical care and primary Per ICU nurse at bedside patient now DNR Plan discussed with: Other Dietary Evaluation Review Comments: Nutrition Recommendation: 1) CCHO 75gm + renal standard diet 2) Pro-stat 1 pk BID 3) Nephro-nellie 1 tab daily 4) Monitor PO intake, lab values, weight trend, and I/O Expected Outcomes/Goals: Wound to improve Intake to meet >75% estimated needs FU 3-5 days VAISHALI SAMAYOA MD Oct 17, 2025 14:15
--- NOTE | 2025-10-17 15:36 | DVHPNRES ---
Progress Note Date Seen: Oct 17, 2025 Resident Creating Document: YOBANI GOETZ RESIDENT Has the PT tested + for MRSA If YES, has PT been informed?: No Medical Necessity Reason Pt with a Central, PICC or Fol: Yes The following are medically ne: Central Line, Rosales Catheter Reason for rosales catheter: Strict I&O Subjective Review of Systems Mr. Zamora is a 59 year old male with PMHx of ESRD with recent initiation of dialysis approximately 2 weeks ago , HFrEF with pacemaker placement, CVA in 2012, type 2 diabetes mellitus, gout, and hypertension, who presented to [facility] due to witnessed cardiopulmonary arrest during dialysis on 09/26/2025. At the time of evaluation the patient is sedated and intubated, majority of history is taken from previous medical record and his sister, Claudia Burnett. Per record, the patient became unresponsive during hemodialysis, CPR was intiated by bystanders and AED was used, by the time EMS arrived on scene the patient was found A&Ox4, GCS15, and moaning in pain. On evaluation in the ED, patient was complaining of dyspnea and chest wall pain. He was afebrile, normocardic with pacedc rhythm, hypertensive, and saturating adequately on room air. EKG showed paced rhythm with widened QTc. Initial labs are significant for normocytic anemia, hypokalemia, creatinine 6.85, BUN 43, and BNP 1232.11. Troponins were negative. UA without alteration. Chest xray significant for lungs with bilateral patchy airspace opacities, prominent pulmonary vasculature, with small bilateral pleural effusions. Head CT shows bilateral cerebral encephalomalacia and mild global cerebral volume loss without intracranial hemorrhage or mass effect. The patient was started on IV diuresis and admitted for further work up and managment. He was evaluated by cardiology who continued diuresis. The patient was evaluated by nephrology who state that given diminished cardiac function likely patient cannot tolerate large ultrafiltration goals. He was scheduled for further dialysis, having undergone dialysis on 09/28/2025 without issue. He was receiving dialysis on 10/01/2025 when he became bradycardic and went into asystole. Code blue was called and CPR was intiated with ROSC achieved after 7 minutes of CPR. He was transferred to the ICU and he entered asystole two more times in a span of 15 minutes a with ROSC achieved after 11 minutes of CPR and at 2 minutes of CPR respectively. He was intubated and started on pressors, sedation, antibiotics, and bicarbonate drip. On initial evaluation in the ICU, the patient is intubated, sedated, and mechanically ventilated, on levophed 2 mcg, pupils are reactive, no response to painful stimulus, cough and gag are present. Labs are significant for normocytic anemia, worsening thrombocytopenia, and worsening renal function. ABG is significant for metabolic alkalosis. Most recent chest xray shows worsening congestion. Past medical history: ESRD on dialysis, HFrEF, CVA in 2012, Type 2 diabetes mellitus, and hypertension Past surgical history: Pacemaker placement and replacement, Right femoral fracture repair Allergies: Denies Social: Per sister, the patient currently smokes marijuana, denies other drug use. Patient currently lives with his mother and his brother. Home meds: Famotidine, Allopurinol, pregabalin, furosemide, sevelamer, metoprolol, and lokelma 10/17/2025: Patient seen and examined at bedside, continues to have 1 to 2+ lower extremity edema, minimally to sluggishly reactive pupils. Objective vital signs Vital Sign Date Time Temp Pulse Resp B/P (MAP) Pulse Ox O2 Delivery O2 Flow Rate FiO2 10/17/25 15:33 92 10/17/25 15:33 18 100 Mechanical Ventilator+ 30 30 10/17/25 14:16 148/61 (90) 10/17/25 12:30 98.9 98.9 10/15/25 23:35 40.0 Total Intake and Output 10/16/25 10/16/25 10/17/25 15:00 23:00 07:00 Intake Total 52.88 ml 327.88 ml 276.88 ml Output Total 150 ml 100 ml Balance 52.88 ml 177.88 ml 176.88 ml medications Current Medications Medications Dose Ordered Sig/Esteban Route Start Time Stop Time Status Last Admin Dose Admin Diagnostic Test (Pha) 1 strip ACHS 09/26/25 22:00 10/17/25 11:30 1 STRIP Insulin Human Regular ACHS SC 09/26/25 22:00 10/13/25 21:05 2 UNITS Dextrose 50 ml UD PRN IV 09/26/25 21:15 Sevelamer HCl 800 mg TIDWM PO 09/29/25 18:00 10/17/25 12:21 800 MG Amino Acid Protein 30 ml BID PO 09/30/25 22:00 10/17/25 07:27 30 ML Multivit/Ca Carb/ B Cmplx/FA/Prenat 1 tab DAILY PO 09/30/25 11:12 10/17/25 07:27 1 TAB Epinephrine HCl 250 ml @ 7.5 mls/hr Q24H IV 10/01/25 15:15 10/01/25 15:39 15 MLS/HR Norepinephrine Bitartrate 250 ml @ 3.75 mls/hr Q24H IV 10/01/25 15:15 10/06/25 09:44 3.75 MLS/HR Albumin Human 100 ml @ 100 mls/hr ANABELLA PRN IV 10/03/25 09:45 10/07/25 17:42 100 MLS/HR Aspirin 81 mg DAILY NG 10/05/25 10:00 10/17/25 07:27 81 MG Enteral Nutritional Formula 1,000 ml 40ML/HR GT 10/04/25 18:30 10/16/25 06:36 1,000 ML Famotidine 10 mg HS IV 10/07/25 22:00 10/16/25 21:11 10 MG Albuterol 2.5 mg Q6HR NEB 10/08/25 12:00 10/17/25 12:30 2.5 MG Ipratropium [place] 0.5 mg Q6HR NEB 10/08/25 12:00 10/17/25 12:31 0.5 MG Artificial Tears 2 drop Q2HP PRN EACHEYE 10/08/25 14:30 Levetiracetam 100 ml @ 400 mls/hr BID IV 10/11/25 22:00 10/17/25 07:27 400 MLS/HR Lorazepam 1 mg Q5MINP PRN IV 10/11/25 21:00 Epoetin Mohan-epbx 10,000 unit MWF@2100 SC 10/12/25 21:00 10/16/25 21:12 10,000 UNIT Gentamicin Sulfate 0 ml @ 0 mls/hr PER PHARMACY IV 10/12/25 18:15 Cancel Sodium Chloride 10 ml QSHIFT@10,22 IV 10/15/25 22:00 10/17/25 07:27 10 ML Examination General: Patient is intubated, mechanically ventilated, non-reactive to painful stimulus HEENT: Normocephalic, atraumatic, 3 mm very sluggish, no EOM, eyes open and moving, unable to track objects, ET tube in place, orogastric tube in palce Respiratory/pulmonary: Bilateral chest expansion, decreased breath sounds bilaterally, wheezing in bilateral upper lobes Cardiovascular: Normal RRR Abdomen: Obese, Abdomen nondistended, normal bowel sounds no grimacing is observed on palpation, no palpable masses. Extremities: No deformities, bilateral lower extremity pedal edema 2+ up to upper thighs, with scrotal swelling, large red circular ulcers present in right calf, presence of femoral CVC in right groin region, pulses are present, blisters present on left forearm. Left lower extremity superficial ulcer on the lateral aspect of the leg. Right lower extremity 2 superficial ulcers 1 on the medial leg and 1 on the dorsal foot. Skin: Saccrococcyx 2.5x1.2x0.5cm, moist, open, full-thickness wound with moist red granulation tissue in the wound base and a mix of pale pink collagen scar tissue and dark brown adhered eschar material on the periwound area, there is minimal odor., darkened eschar lesions on his toes Neurological: hypoactive Gag and cough noted, patient blinks but does not track movements with his eyes, does not respond to verbal commands, no response to painful stimulus. Penile ulcer noted under the foreskin laboratory and microbiology Laboratory Tests 10/17/25 03:49 Test 10/17/25 03:49 Range/Units Serum Glucose 119 H 74-106 mg/dL Microbiology Date/Time Source Procedure Growth Status 10/08/25 22:28 Urine - Rosales Port Urine Culture - Final Complete 10/06/25 13:00 Sacrum Gram Stain - Final Resulted 10/06/25 13:00 Wound Culture - Preliminary Enterobacter cloacae Enterococcus faecalis - VRE Resulted 10/02/25 17:33 Blood Blood Culture - Final NO GROWTH AFTER 5 DAYS OF INCUBATION. Complete Labs and/or images reviewed: Labs reviewed by me, Image(s) reviewed by me Problem List/Assessment/Plan Problem List/Assessment/Plan Neurology # Sedated - Precedex at 0.3 mg # Encephalomalacia - Head CT 09/26/2025: Bilateral cerebral encephalomalacia # Global cerebral volume loss - Head CT 09/26/2025: Mild global cerebral volume loss # epilepsy - Oxycarbazepine - held # Concern for anoxic brain injury - Head CT 10/06/25: No acute intracranial hemorrhage or mass effect.Age indeterminate small infarct involving the right cerebellum, favored to be chronic. If there is clinical concern for acute infarct, recommend MRI for further evaluation.Chronic bilateral parietal and occipital lobe infarcts. - Despite being off sedation for 48 hours, patient still has no meaningful neurologic response. . Neurology has been consulted - unable to obtain MRI as per [employer] pacemaker leads are older generation and not MRI compatible. #History of CVA in 201210/10/25 CT head negative for acute process. - Neurology consult - Off sedation since 10/08 Cardiovascular #S/p Cardiac arrest with ROSC - 09/26/2025: Witnessed at dialysis center, bystanders started CPR and AED use, ROSC achieved before EMS arrived - 10/01/2025: Rhythm: Asystole, ROSC achieved after 7 minutes of CPR - 10/01/2025: Rhythm: Asystole, ROSC achieved after 11 minutes of CPR - 10/01/2025: Rhythm: Asystole, ROSC achieved after 2 minutes of CPR # Cardiogenic shock # Lactic acidosis likely due to above - wound culture growing Enterobacter cloacae MDR, VRE Enterococcus faecalis. - Levophed 2 mcg, now discontinued - Epinephrine has been discontinued # Acute on chronic HFrEF - BNP 1232.11 - Echocardiogram 08/22/2025: LVEF of 20-25%, Severe LV dysfunction, moderate mitral regurgitation - Per cardiology: Diuretics with lasix, aspirin, nitroglycerin SL - Lasix 40 mg IV daily - S/p pacemaker placement # Bilateral pleural effusion - Chest xray 10/12/2025: No significant interval change. #Hypertension - Amlodipine held by nephrology Respiratory # Acute hypoxic hypercapnic respiratory failure # Ventilator -Intubated (10/01/2025) -On [facility] vent : VCAC Mode RR 18 TV 450ml, PEEP Of 8 and FiO2 of 4045% - 8.0 endotracheal tube, 24 at the lip - Cutlures from sputum: Normal orophargyngeal elpidio GI # Peptic ulcer prophylaxis -Pantoprazole 40 mg IV daily # Rosales catheter draining clear urine placed on 10/09/2025 Nephrology # ESRD on hemodialysis - Received dialysis without complication and without pressor support on 10/13/2025 with 2 L removed - Strict Is and Os # Severe diabetic nephropathy #Acute metabolic alkalosis # Secondary hyperparathyroidism # Hypocalcemia - Monitor - Calcitrol # Hyperphosphatemia - Phosphate binders Infectious disease # 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 # Possible cellulitis secondary to lower extremity ulcers, , leg wound growing E coli # Complicated UTI growing MDR cloacae, VRE - IV linezolid, now discontinued - started patient on IV gentamicin per pharmacy, now discontinued - consulted infectious disease; per ID to discontinue systemic antibiotics likely colonization #Septic vs Cardiogenic shock - blood Cultures: Negative at 72 hours - Ceftriaxone 1 g IV daily, now discontinue Hem/onc #Thrombocytopenia, improved - Monitor #Normocytic anemia, likely due to chronic disease - Monitor Hand H - Per nephrology: Epogen 98957 SQ 3 weekly as tolerated Endocrine #Type 2 diabetes mellitus - SSI -Accu cheks MSK # Gout - Allopurinol 300 mg PO daily Skin # Circular ulcers present on right leg, present on admission # Possible Sacral Ulcer stage 2, present on admission - Wound culture: VRE - Meropenem 500 mg daily, discontinued - Linezolid 600 mg IV q 12 hours , now discontinued Marijuana use DVT prophylaxis: SCD PUD prophylaxis: Pantoprazole 40 mg IV daily Lines -R femoral central line: 10/01/2025, discontinued on 10/15/2025. - thigh PICC line placed on 10/15/2025 -Rosales catheter 10/09/2025 -ET tube: 10/01/2025 - Tunneled catheter in right pectoral region Patient has right femoral line given the presence of right tunnel catheter in right pectoral region and pacemaker in left field. We will give the patient more time for sedation to wear off for accurate neurological evaluation. Drips during [facility] ventilation Fentanyl Discontinued Propofol: dc'ed Bicarbonate drip discontinued Levophed discontinued Critical care time 82 minutes excluding procedure. Code status discussed greater than 20 minutes: Full CODE STATUS. Detailed conversation held with patient's sister at bedside where prognosis was explained, per patient's sister would like to wait until Sunday before deciding for compassionate extubation versus tracheostomy. Plan discussed with Dr. Rivera Plan discussed with: Other (RN) My Orders My Orders Orders - YOBANI GOETZ RESIDENT Procedure Category Date Status Time Chest Portable XY 10/17/25 Resulted 04:00 Abg W/ Co-Ox RT 10/17/25 Logged 04:00 Respiratory Misc. RT 12/20/25 Transmitted Order 12:31 Dietary Evaluation Review Comments: Nutrition Recommendation: 1) CCHO 75gm + renal standard diet 2) Pro-stat 1 pk BID 3) Nephro-nellie 1 tab daily 4) Monitor PO intake, lab values, weight trend, and I/O Expected Outcomes/Goals: Wound to improve Intake to meet >75% estimated needs FU 3-5 days Visit Coding STANDARD RES Billing Provider: JEREMIAH RIVERA MD Date of Service if different f: Oct 17, 2025 Common Visit Codes: 48524-[id number] CARE 30-74 MIN, 45997-XYHOGIHV CARE-EACH +30MIN YOBANI GOETZ RESIDENT Oct 17, 2025 15:36
--- NOTE | 2025-10-17 21:12 | DVHPN2 ---
Progress Note - Dictate Date Seen: Oct 17, 2025 Has the PT tested + for MRSA If YES, has PT been informed?: No Medical Necessity Reason Pt with a Central, PICC or Fol: Yes The following are medically ne: Central Line, Rosales Catheter Reason for rosales catheter: Strict I&O Subjective Patient was seen and evaluated in follow up in the ICU. Patient is intubated and sedated on ventilator. 30% FiO2. HGB 8.4, HCT 26.5, BUN 31, SUPPLY CHAIN PROCUREMENT MANAGER 4.30. Chest x- ray shows unchanged pulmonary vascular congestion and low lung volumes. vital signs Vital Sign Date Time Temp Pulse Resp B/P (MAP) Pulse Ox O2 Delivery O2 Flow Rate FiO2 10/17/25 10:42 93 21 172/54 (93) 98 30 10/17/25 09:42 Mechanical Ventilator+ 10/17/25 08:00 99.2 99.2 10/15/25 23:35 40.0 Total Intake and Output 10/16/25 10/16/25 10/17/25 15:00 23:00 07:00 Intake Total 52.88 ml 327.88 ml 276.88 ml Output Total 150 ml 100 ml Balance 52.88 ml 177.88 ml 176.88 ml medications Current Medications Medications Dose Ordered Sig/Esteban Route Start Time Stop Time Status Last Admin Dose Admin Diagnostic Test (Pha) 1 strip ACHS 09/26/25 22:00 10/17/25 05:51 1 STRIP Insulin Human Regular ACHS SC 09/26/25 22:00 10/13/25 21:05 2 UNITS Dextrose 50 ml UD PRN IV 09/26/25 21:15 Sevelamer HCl 800 mg TIDWM PO 09/29/25 18:00 10/17/25 07:27 800 MG Amino Acid Protein 30 ml BID PO 09/30/25 22:00 10/17/25 07:27 30 ML Multivit/Ca Carb/ B Cmplx/FA/Prenat 1 tab DAILY PO 09/30/25 11:12 10/17/25 07:27 1 TAB Epinephrine HCl 250 ml @ 7.5 mls/hr Q24H IV 10/01/25 15:15 10/01/25 15:39 15 MLS/HR Norepinephrine Bitartrate 250 ml @ 3.75 mls/hr Q24H IV 10/01/25 15:15 12/25 09:44 3.75 MLS/HR Albumin Human 100 ml @ 100 mls/hr ANABELLA PRN IV 10/03/25 09:45 10/07/25 17:42 100 MLS/HR Aspirin 81 mg DAILY NG 10/05/25 10:00 10/17/25 07:27 81 MG Enteral Nutritional Formula 1,000 ml 40ML/HR GT 10/04/25 18:30 10/16/25 06:36 1,000 ML Famotidine 10 mg HS IV 10/07/25 22:00 10/16/25 21:11 10 MG Albuterol 2.5 mg Q6HR NEB 10/08/25 12:00 10/17/25 06:32 2.5 MG Ipratropium [place] 0.5 mg Q6HR NEB 10/08/25 12:00 10/17/25 06:32 0.5 MG Artificial Tears 2 drop Q2HP PRN EACHEYE 10/08/25 14:30 Levetiracetam 100 ml @ 400 mls/hr BID IV 10/11/25 22:00 10/17/25 07:27 400 MLS/HR Lorazepam 1 mg Q5MINP PRN IV 10/11/25 21:00 Epoetin Mohan-epbx 10,000 unit MWF@2100 SC 10/12/25 21:00 10/16/25 21:12 10,000 UNIT Gentamicin Sulfate 0 ml @ 0 mls/hr PER PHARMACY IV 10/12/25 18:15 Cancel Sodium Chloride 10 ml QSHIFT@10,22 IV 10/15/25 22:00 10/17/25 07:27 10 ML objective GENERAL: Ill appearing, intubated on ventilator. Morbidly obese. EYES: PERRL, EOMI. Anicteric. HENT: Moist mucous membranes. LUNGS: Decreased breath sounds. CARDIOVASCULAR: Regular rate and rhythm. ABDOMEN: Soft, non-tender and non-distended. EXTREMITIES: No edema. SKIN: Warm, dry. laboratory and microbiology Laboratory Tests 10/17/25 03:49 Test 10/17/25 03:49 Range/Units Serum Glucose 119 H 74-106 mg/dL Problem List Acute syncopal episode. Status post cardiac arrest x3. ESRD on hemodialysis. Hypertension. Peripheral neuropathy. Severe peripheral artery disease. Acute on chronic congestive heart failure exacerbation. History of CVA. Anemia of chronic disease. Diabetes with severe diabetic nephropathy. History of pacemaker. Morbidly obese. Decompensated heart failure with ejection fraction less than 25%. Encephalomalacia. Hyperphosphatemia. Hyperparathyroidism. Assessment/Plan Continued all current supportive medical care. Aspirin. Nebulized breathing treatments. Vasopressors for hemodynamic support. Additional plan as per the hospital course. Critical care time of 45 minutes provided to include time spent evaluation of patient at bedside, when appropriate patient/family education for diagnosis, treatment plan, review of pertinent medical information and discussion of care with specialty providers and PCP. Mechanical ventilator parameters, treatment and adjustments have personally been reviewed by me and treatment plan by lead developer has also been reviewed. Dietary Evaluation Review Comments: Nutrition Recommendation: 1) CCHO 75gm + renal standard diet 2) Pro-stat 1 pk BID 3) Nephro-nellie 1 tab daily 4) Monitor PO intake, lab values, weight trend, and I/O Expected Outcomes/Goals: Wound to improve Intake to meet >75% estimated needs FU 3-5 days Plan discussed with: Other MATTHEW CIFUENTES MD Oct 17, 2025 12:15
--- NOTE | 2025-10-17 23:52 | DVHPN2 ---
[facility] DOS: 10/17/2025 Patient seen and examined at bedside. Intubated on mechanical ventilator. Overnight events reviewed. Reviewed: Care Plan, H&P, Labs, Medications, Previous Orders, Radiology Changes from previous H/P or p: No Changes Eyes: No Pain, No Vision change, No Conjunctivae inflammation, No Eyelid inflammation, No Other, No Redness ENT: No Ear pain, No Ear discharge, No Nose pain, No Nose discharge, No Nose congestion, No Mouth pain, No Mouth swelling, No Throat pain, No Throat swelling, No Other Cardiovascular: Chest Pain; No Palpitations, No Orthopnea, No Paroxysmal Noc. Dyspnea, No Edema, No Lt Headedness, No Other Respiratory: No Cough, No Dry, No Shortness of breath, No SOB with excertion, No Wheezing, No Hemoptysis, No Pleuritic Pain, No Sputum, No Other Gastrointestinal: No Nausea, No Vomiting, No Abdominal Pain, No Diarrhea, No Constipation, No Melena, No Hematochezia, No Other Genitourinary: No Dysuria, No Frequency, No Incontinence, No Hematuria, No Retention; Other (On hemodialysis) Musculoskeletal: No other, No neck pain, No shoulder pain, No arm pain, No back pain, No hand pain, No leg pain, No foot pain Skin: No Rash, No Lesions, No Jaundice, No Bruising, No Other Objective Vitals Vital Signs Date Time Temp Pulse Resp B/P (MAP) Pulse Ox O2 Delivery O2 Flow Rate FiO2 10/17/25 22:45 105 17 159/70 (99) 100 10/17/25 22:23 Mechanical Ventilator+ 30 30 10/17/25 20:00 98.9 98.9 10/15/25 23:35 40.0 Intake/Output Intake and Output 10/17/25 07:00 Intake Total 657.64 ml Output Total 250 ml Balance 407.64 ml Intake Oral 200 ml IV Total 158.64 ml Tube Feeding 299 ml Output Urine Total 250 ml # Bowel Movements 1 Exam Gen.: Patient lying in bed in medical ICU. Intubated on mechanical ventilator. Head: Normocephalic, atraumatic. Eyes: PERRLA. Ears: Normal external anatomy. Throat: Endotracheal tube and orogastric tube in place. Neck: Supple, trachea midline. Chest: Transmitted breath sounds bilaterally. Decreased air entry bilaterally. No wheezing. Bibasilar crackles. Cardiovascular: Positive S1, positive S2. Regular rate and rhythm. Abdomen: Positive bowel sounds in all 4 quadrants. Soft, nontender, nondistended. : Salas in place. Normal external genitalia. Rectal: Deferred. Skin: Warm, dry. Intact. Extremities: 2+ radial pulses bilaterally. No lower extremity edema. Neuro: Off sedation Medications Current Medications Medications Dose Ordered Sig/Esteban Route Start Time Stop Time Status Last Admin Dose Admin Diagnostic Test (Pha) 1 strip ACHS 09/26/25 22:00 10/17/25 21:46 1 STRIP Insulin Human Regular ACHS SC 09/26/25 22:00 10/13/25 21:05 2 UNITS Dextrose 50 ml UD PRN IV 09/26/25 21:15 Sevelamer HCl 800 mg TIDWM PO 09/29/25 18:00 10/17/25 16:31 800 MG Amino Acid Protein 30 ml BID PO 09/30/25 22:00 10/17/25 21:46 30 ML Multivit/Ca Carb/ B Cmplx/FA/Prenat 1 tab DAILY PO 09/30/25 11:12 10/17/25 07:27 1 TAB Epinephrine HCl 250 ml @ 7.5 mls/hr Q24H IV 10/01/25 15:15 10/01/25 15:39 15 MLS/HR Norepinephrine Bitartrate 250 ml @ 3.75 mls/hr Q24H IV 10/01/25 15:15 10/06/25 09:44 3.75 MLS/HR Albumin Human 100 ml @ 100 mls/hr ANABELLA PRN IV 10/03/25 09:45 10/07/25 17:42 100 MLS/HR Aspirin 81 mg DAILY NG 10/05/25 10:00 10/17/25 07:27 81 MG Enteral Nutritional Formula 1,000 ml 40ML/HR GT 10/04/25 18:30 10/16/25 06:36 1,000 ML Famotidine 10 mg HS IV 10/07/25 22:00 10/17/25 21:46 10 MG Albuterol 2.5 mg Q6HR NEB 10/08/25 12:00 10/17/25 18:23 2.5 MG Ipratropium [place] 0.5 mg Q6HR NEB 10/08/25 12:00 10/17/25 18:23 0.5 MG Artificial Tears 2 drop Q2HP PRN EACHEYE 10/08/25 14:30 Levetiracetam 100 ml @ 400 mls/hr BID IV 10/11/25 22:00 10/17/25 21:46 400 MLS/HR Lorazepam 1 mg Q5MINP PRN IV 10/11/25 21:00 Epoetin Mohan-epbx 10,000 unit MWF@2100 SC 10/12/25 21:00 10/16/25 21:12 10,000 UNIT Gentamicin Sulfate 0 ml @ 0 mls/hr PER PHARMACY IV 10/12/25 18:15 Cancel Sodium Chloride 10 ml QSHIFT@,22 IV 10/15/25 22:00 10/17/25 21:46 10 ML Laboratory Results Laboratory Tests 10/17/25 03:49 Chemistry Test 10/17/25 03:49 Calcium Level 9.5 mg/dL (8.7-10.4) Urinalysis Test 10/08/25 22:28 Urine Color Dark-brown (Yellow) Urine Clarity Ex.turbid (Clear) Urine pH 6.0 (5.0-9.0) Urine Specific [place] 1.017 (1.001-1.035) Urine Protein 2+ (Negative) H Urine Ketones Negative (Negative) Urine Blood 3+ /uL (Negative) H Urine Nitrite Negative (Negative) Urine Bilirubin Negative (Negative) Urine Urobilinogen Normal mg/dL (Negative) Urine Leukocyte Esterase 3+ /uL (Negative) Urine RBC 320 /hpf (0 - 3) Urine WBC Clumps Present /hpf (None Seen) Urine Microscopic WBC 1809 /HPF (0-3) H Urine Squamous Epithelial Cells Many /hpf (<5) Urine Amorphous Crystals Few /hpf (None Seen) Urine Bacteria Many /hpf (None Seen) H Urine Mucus Few (None Seen) Urine Glucose Normal mg/dL (Normal) Blood Gas Results Test 10/17/25 07:45 Arterial Blood pH 7.461 (7.350-7.450) FiO2 % 30.0 Microbiology Microbiology Date/Time Source Procedure Growth Status 10/08/25 22:28 Urine - [place] Urine Culture - Final Complete 10/06/25 13:00 Sacrum Gram Stain - Final Resulted 10/06/25 13:00 Wound Culture - Preliminary Enterobacter cloacae Enterococcus faecalis - VRE Resulted 10/02/25 17:33 Blood Blood Culture - Final NO GROWTH AFTER 5 DAYS OF INCUBATION. Complete Assessment/Plan Assessment/Plan Impression: Acute hypoxic respiratory failure On mechanical ventilator Lactic acidosis S/p cardiac arrest Acute on chronic CHF ESRD, on hemodialysis DM type II Shock Morbid obesity Cellulitis Sacral ulcer Events: Remains on vent support On AC mode; RR 18, VT 450, PEEP 8, FiO2 30% Off sedation since 10/08/25 Patient is responsive to eye opening, but is not responsive to verbal stimuli. ABG notable for alkalemia Labs reviewed; HGB 8.4, HCT 26.5, BUN 31, TALCER 4.30. Chest x-ray shows unchanged pulmonary vascular congestion and low lung volumes. KUB shows nonobstructive bowel gas pattern. Off pressors, hemodynamically stable. Patient noted to have increased pressor requirements during HD. Hemodialysis per Nephrology Hemoglobin is stable. Continue bronchodilators Completed antibiotics Antiepileptic with Keppra Hemodialysis per Nephrology Follow up Nephrology recs Monitor renal function Salas was exchanged 10/09. Tube feeds for nutritional support Wound care Patient has poor prognosis. Discontinue Precedex. Family meeting on Sunday to discuss goals of care. CT head reveals no acute intracranial abnormality. 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 Likely chronic right cerebellar infarct. Labs and imaging reviewed. Rest of plan as noted below. Plan: s/p intubation on mechanical ventilator. On AC mode; RR 18, VT 450, PEEP 8, FiO2 30% Titrate FIO2 to keep O2 saturation above 90%. VAP bundle. Daily ABG and CXR while intubated Pressors as necessary for hemodynamic support Titrate to keep mean arterial pressure greater than 65 mmHg. Antibiotics. Follow up cultures. HD per Nephrology Diurese to euvolemia Monitor renal function Monitor electrolytes. Supplement as necessary. Monitor ins and outs. Recommend judicious use of fluids due to CHF. Wound care Monitor lactic acid. Recommend diet and lifestyle modifications for weight reduction Obesity complicates all care GI prophylaxis. DVT prophylaxis. Prognosis: Poor given patient's multiple co-morbidities. Condition: Critical Rest of plan per hospitalist and other consultants. A total of 35 minutes of critical care time was spent reviewing the patient record, examining the patient, making a diagnostic and therapeutic plan, discussing this plan with the medical personnel, following up on diagnostic studies and following the patient for clinical stability excluding any and all procedures. At least 50% of this time was spent in direct, [id number] contact. Thank you, Dr. Cantu, for allowing me to participate in this patient's care. Further recommendations will depend on the patient's clinical course. Please do not hesitate to contact me if you have any questions or concerns. This medical document was created using an electronic medical record system with [employer] dictation system. Although these documentations are being carefully reviewed, there may still be some phonetic and typographical changes. The errors are purely typographical, due to imperfection on the software program, and do not reflect any compromise in the patient's medical care. Plan discussed with: Other (JOYCE Cervantes) Visit Coding Pulmonary Billing Provider: JEREMIAH GAMEZ MD Date of Service if different f: Oct 17, 2025 Common Visit Codes: 31073-[id number] INP/OBS CARE(HIGH), [id number] CARE 30-74 MIN JEREMIAH GAMEZ MD Oct 17, 2025 23:52
[2025-10-18] VITALS (87 sets, daily range): BP systolic 132–188; BP diastolic 57–107; PULSE 97–114; RESP 9–26; TEMP 97.5–100.1; O2SAT 98–100
[2025-10-18 04:12] LABS: Mean Corpuscular Hemoglobin 32.0 pg (28.0-32.0); Nucleated Red Blood Cells % 0.0 %
[2025-10-18 04:14] LABS: Hematocrit 25.4 % (41.0-53.0); Hemoglobin 8.3 g/dL (13.5-17.5); Mean Corpuscular Volume 97.7 fL (80.0-100.0)
[2025-10-18 04:29] LABS: Chloride 102 mmol/L (98-107); Sodium 144 mmol/L (136-145)
[2025-10-18 04:30] LABS: Anion Gap 13 (5-15); Carbon Dioxide 29 mmol/L (20-31)
[2025-10-18 04:31] LABS: Calcium 9.4 mg/dL (8.7-10.4)
[2025-10-18 04:35] LABS: BUN/Creatinine Ratio 7.8 (10.0-20.0)
[2025-10-18 04:41] LABS: Blood Urea Nitrogen 35 mg/dL (9-23); Glucose 145 mg/dL (74-106); Potassium 3.3 mmol/L (3.5-5.1)
[2025-10-18] MEDS: POTASSIUM CHL 20MEQ/100ML 100 ML IV ONE (05:02)
--- NOTE | 2025-10-18 06:28 | DVH ---
CHEST RADIOGRAPH Indication: intubated Technique: Single frontal view of the chest was obtained COMPARISON: XY CHEST PORTABLE on DOS: 10/17/25, XY CHEST PORTABLE on DOS: 10/16/25, XY CHEST PORTABLE on DOS: 10/15/25, XY CHEST PORTABLE on DOS: 10/14/25, XY CHEST PORTABLE on DOS: 10/13/25 FINDINGS: Lines and Tubes: Endotracheal tube, enteric catheter, right central venous catheter and left pacemaker in satisfactory position. Lungs: Unchanged multifocal airspace disease. Pleura: No effusion.No pneumothorax. Cardiomediastinal contours: Unchanged cardiomegaly. Bones: Unremarkable IMPRESSION: Lines and tubes in satisfactory position. No significant interval change.
[2025-10-18 07:59] LABS: Base Excess 3.9 mmol/L (-2.0-3.0)
--- NOTE | 2025-10-18 14:31 | DVHPNRES ---
Progress Note Date Seen: Oct 18, 2025 Resident Creating Document: SEUN RUBIN RESIDENT Has the PT tested + for MRSA If YES, has PT been informed?: No Medical Necessity Reason Pt with a Central, PICC or Fol: Yes The following are medically ne: Central Line, Rosales Catheter Reason for rosales catheter: Strict I&O Subjective Review of Systems Mr. Zamora is a 59 year old male with PMHx of ESRD with recent initiation of dialysis approximately 2 weeks ago , HFrEF with pacemaker placement, CVA in 2012, type 2 diabetes mellitus, gout, and hypertension, who presented to [facility] due to witnessed cardiopulmonary arrest during dialysis on 09/26/2025. At the time of evaluation the patient is sedated and intubated, majority of history is taken from previous medical record and his sister, Claudia Burnett. Per record, the patient became unresponsive during hemodialysis, CPR was intiated by bystanders and AED was used, by the time EMS arrived on scene the patient was found A&Ox4, GCS15, and moaning in pain. On evaluation in the ED, patient was complaining of dyspnea and chest wall pain. He was afebrile, normocardic with pacedc rhythm, hypertensive, and saturating adequately on room air. EKG showed paced rhythm with widened QTc. Initial labs are significant for normocytic anemia, hypokalemia, creatinine 6.85, BUN 43, and BNP 1232.11. Troponins were negative. UA without alteration. Chest xray significant for lungs with bilateral patchy airspace opacities, prominent pulmonary vasculature, with small bilateral pleural effusions. Head CT shows bilateral cerebral encephalomalacia and mild global cerebral volume loss without intracranial hemorrhage or mass effect. The patient was started on IV diuresis and admitted for further work up and managment. He was evaluated by cardiology who continued diuresis. The patient was evaluated by nephrology who state that given diminished cardiac function likely patient cannot tolerate large ultrafiltration goals. He was scheduled for further dialysis, having undergone dialysis on 09/28/2025 without issue. He was receiving dialysis on 10/01/2025 when he became bradycardic and went into asystole. Code wesly was called and CPR was intiated with ROSC achieved after 7 minutes of CPR. He was transferred to the ICU and he entered asystole two more times in a span of 15 minutes a with ROSC achieved after 11 minutes of CPR and at 2 minutes of CPR respectively. He was intubated and started on pressors, sedation, antibiotics, and bicarbonate drip. On initial evaluation in the ICU, the patient is intubated, sedated, and mechanically ventilated, on levophed 2 mcg, pupils are reactive, no response to painful stimulus, cough and gag are present. Labs are significant for normocytic anemia, worsening thrombocytopenia, and worsening renal function. ABG is significant for metabolic alkalosis. Most recent chest xray shows worsening congestion. Past medical history: ESRD on dialysis, HFrEF, CVA in 2012, Type 2 diabetes mellitus, and hypertension Past surgical history: Pacemaker placement and replacement, Right femoral fracture repair Allergies: Denies Social: Per sister, the patient currently smokes marijuana, denies other drug use. Patient currently lives with his mother and his brother. Home meds: Famotidine, Allopurinol, pregabalin, furosemide, sevelamer, metoprolol, and lokelma 10/18/2025: patient was seen at bedside. Patient is sedated and intubated. No significant overnight events. He will undergo hemodialysis today. Objective vital signs Vital Sign Date Time Temp Pulse Resp B/P (MAP) Pulse Ox O2 Delivery O2 Flow Rate FiO2 10/18/25 12:30 105 22 148/79 (102) 98 30 10/18/25 10:07 Mechanical Ventilator+ 10/18/25 08:00 97.5 97.5 Total Intake and Output 10/17/25 10/17/25 10/18/25 15:00 23:00 07:00 Intake Total 149.575 ml 525 ml 452 ml Output Total 150 ml 140 ml Balance 149.575 ml 375 ml 312 ml medications Current Medications Medications Dose Ordered Sig/Esteban Route Start Time Stop Time Status Last Admin Dose Admin Diagnostic Test (Pha) 1 strip ACHS 09/26/25 22:00 10/18/25 11:09 1 STRIP Insulin Human Regular ACHS SC 09/26/25 22:00 10/18/25 11:05 2 UNITS Dextrose 50 ml UD PRN IV 09/26/25 21:15 Sevelamer HCl 800 mg TIDWM PO 09/29/25 18:00 10/17/25 16:31 800 MG Amino Acid Protein 30 ml BID PO 09/30/25 22:00 10/18/25 10:38 30 ML Multivit/Ca Carb/ B Cmplx/FA/Prenat 1 tab DAILY PO 09/30/25 11:12 10/18/25 10:38 1 TAB Epinephrine HCl 250 ml @ 7.5 mls/hr Q24H IV 10/01/25 15:15 10/01/25 15:39 15 MLS/HR Norepinephrine Bitartrate 250 ml @ 3.75 mls/hr Q24H IV 10/01/25 15:15 10/06/25 09:44 3.75 MLS/HR Albumin Human 100 ml @ 100 mls/hr ANABELLA PRN IV 10/03/25 09:45 10/07/25 17:42 100 MLS/HR Aspirin 81 mg DAILY NG 10/05/25 10:00 10/18/25 10:38 81 MG Enteral Nutritional Formula 1,000 ml 40ML/HR GT 10/04/25 18:30 10/16/25 06:36 1,000 ML Famotidine 10 mg HS IV 10/07/25 22:00 10/17/25 21:46 10 MG Albuterol 2.5 mg Q6HR NEB 10/08/25 12:00 10/18/25 12:40 2.5 MG Ipratropium [place] 0.5 mg Q6HR NEB 10/08/25 12:00 10/18/25 12:40 0.5 MG Artificial Tears 2 drop Q2HP PRN EACHEYE 10/08/25 14:30 Levetiracetam 100 ml @ 400 mls/hr BID IV 10/11/25 22:00 10/18/25 10:37 400 MLS/HR Lorazepam 1 mg Q5MINP PRN IV 10/11/25 21:00 Epoetin Mohan-epbx 10,000 unit MWF@2100 SC 10/12/25 21:00 10/16/25 21:12 10,000 UNIT Gentamicin Sulfate 0 ml @ 0 mls/hr PER PHARMACY IV 10/12/25 18:15 Cancel Sodium Chloride 10 ml QSHIFT@10,22 IV 10/15/25 22:00 10/18/25 10:39 10 ML Examination General: Patient is intubated, mechanically ventilated, non-reactive to painful stimulus HEENT: Normocephalic, atraumatic, 3 mm very sluggish, no EOM, eyes open and moving, unable to track objects, ET tube in place, orogastric tube in palce Respiratory/pulmonary: Bilateral chest expansion, decreased breath sounds bilaterally, wheezing in bilateral upper lobes Cardiovascular: Normal RRR Abdomen: Obese, Abdomen nondistended, normal bowel sounds no grimacing is observed on palpation, no palpable masses. Extremities: No deformities, bilateral lower extremity pedal edema 2+ up to upper thighs, with scrotal swelling, large red circular ulcers present in right calf, presence of femoral CVC in right groin region, pulses are present, blisters present on left forearm. Left lateral lower leg noted with 2x0.6cm open partial thickness wound. Right lower extremity 2 superficial ulcers 1 on the medial leg and 1 on the dorsal foot. Cold bilateral lowe.r extremities Skin: Saccrococcyx 2.5x1.2x0.5cm, moist, open, full-thickness wound with moist red granulation tissue in the wound base and a mix of pale pink collagen scar tissue and dark brown adhered eschar material on the periwound area, there is minimal odor., darkened eschar lesions on his toes Neurological: Hypoactive. Gag and cough noted, patient blinks but does not track movements with his eyes, does not respond to verbal commands, no response to painful stimulus. Penile ulcer noted under the foreskin laboratory and microbiology Laboratory Tests 10/18/25 03:53 Test 10/18/25 03:53 Range/Units Serum Glucose 145 H 74-106 mg/dL Microbiology Date/Time Source Procedure Growth Status 10/08/25 22:28 Urine - Ros[place] Urine Culture - Final Complete 10/06/25 13:00 Sacrum Gram Stain - Final Resulted 10/06/25 13:00 Wound Culture - Preliminary Enterobacter cloacae Enterococcus faecalis - VRE Resulted 10/02/25 17:33 Blood Blood Culture - Final NO GROWTH AFTER 5 DAYS OF INCUBATION. Complete Problem List/Assessment/Plan Problem List/Assessment/Plan Neurology # Sedated - Precedex at 0.3 mg # Encephalomalacia - Head CT 09/26/2025: Bilateral cerebral encephalomalacia # Global cerebral volume loss - Head CT 09/26/2025: Mild global cerebral volume loss # epilepsy - Oxycarbazepine - held # Concern for anoxic brain injury - Head CT 10/06/25: No acute intracranial hemorrhage or mass effect.Age indeterminate small infarct involving the right cerebellum, favored to be chronic. If there is clinical concern for acute infarct, recommend MRI for further evaluation.Chronic bilateral parietal and occipital lobe infarcts. - Despite being off sedation for 48 hours, patient still has no meaningful neurologic response. . Neurology has been consulted - unable to obtain MRI as per [employer] pacemaker leads are older generation and not MRI compatible. #History of CVA in 201210/10/25 CT head negative for acute process. - Neurology consult - Off sedation since 10/08 Cardiovascular #S/p Cardiac arrest with ROSC - 09/26/2025: Witnessed at dialysis center, bystanders started CPR and AED use, ROSC achieved before EMS arrived - 10/01/2025: Rhythm: Asystole, ROSC achieved after 7 minutes of CPR - 10/01/2025: Rhythm: Asystole, ROSC achieved after 11 minutes of CPR - 10/01/2025: Rhythm: Asystole, ROSC achieved after 2 minutes of CPR # Cardiogenic shock # Lactic acidosis likely due to above - wound culture growing Enterobacter cloacae MDR, VRE Enterococcus faecalis. - Levophed 2 mcg, now discontinued - Epinephrine has been discontinued # Acute on chronic HFrEF - BNP 1232.11 - Echocardiogram 08/22/2025: LVEF of 20-25%, Severe LV dysfunction, moderate mitral regurgitation - Per cardiology: Diuretics with lasix, aspirin, nitroglycerin SL - Lasix 40 mg IV daily - S/p pacemaker placement # Bilateral pleural effusion - Chest xray 10/12/2025: No significant interval change. #Hypertension - Amlodipine held by nephrology Respiratory # Acute hypoxic hypercapnic respiratory failure # Ventilator -Intubated (10/01/2025) -On [facility] vent : VCAC Mode RR 18 TV 450ml, PEEP Of 8 and FiO2 of 4045% - 8.0 endotracheal tube, 24 at the lip - Cutlures from sputum: Normal orophargyngeal elpidio GI # Peptic ulcer prophylaxis -Pantoprazole 40 mg IV daily # Rosales catheter draining clear urine placed on 10/09/2025 Nephrology # ESRD on hemodialysis - Received dialysis without complication and without pressor support on 10/13/2025 with 2 L removed - Strict Is and Os # Severe diabetic nephropathy # Acute metabolic alkalosis # Secondary hyperparathyroidism # Hypocalcemia - Monitor - Calcitrol # Hyperphosphatemia - Phosphate binders #Hypokalemia - Potassium 3.3, supplemented Infectious disease # Infected sacral wound growing carbapenem resistant enterococci # Possible cellulitis secondary to lower extremity ulcers, , leg wound growing E coli # Complicated UTI growing MDR cloacae, VRE - IV linezolid, now discontinued - started patient on IV gentamicin per pharmacy, now discontinued - consulted infectious disease; per ID to discontinue systemic antibiotics likely colonization #Septic vs Cardiogenic shock - blood Cultures: Negative at 72 hours - Ceftriaxone 1 g IV daily, now discontinue Hem/onc # Thrombocytopenia, improved - Monitor # Normocytic anemia, likely due to chronic disease - Monitor Hand H - Per nephrology: Epogen 72503 SQ 3 weekly as tolerated Endocrine #Type 2 diabetes mellitus - SSI -Accu cheks MSK # Gout - Allopurinol 300 mg PO daily Skin # Circular ulcers present on right leg, present on admission # Possible Sacral Ulcer stage 2, present on admission - Wound culture: VRE - Meropenem 500 mg daily, discontinued - Linezolid 600 mg IV q 12 hours , now discontinued Psychiatry # Marijuana use disorder DVT prophylaxis: SCD PUD prophylaxis: Pantoprazole 40 mg IV daily Lines -R femoral central line: 10/01/2025, discontinued on 10/15/2025. - thigh PICC line placed on 10/15/2025 -Rosales catheter 10/09/2025 -ET tube: 10/01/2025 - Tunneled catheter in right pectoral region Patient has right femoral line given the presence of right tunnel catheter in right pectoral region and pacemaker in left field. We will give the patient more time for sedation to wear off for accurate neurological evaluation. Drips during [facility] ventilation Fentanyl Discontinued Propofol: dc'ed Bicarbonate drip discontinued Levophed discontinued Critical care time 81 minutes excluding procedure. Code status discussed greater than 20 minutes: Full CODE STATUS. Detailed conversation held with patient's sister at bedside where prognosis was explained, per patient's sister would like to wait until Sunday before deciding for compassionate extubation versus tracheostomy. Plan discussed with Dr. Rivera Plan discussed with: Other (Nurses) My Orders My Orders Orders - SEUN RUBIN RESIDENT Procedure Category Date Status Time Complete Blood Count LAB 10/19/25 Verified 04:00 Comprehensive LAB 10/19/25 Verified Metabolic Panel 04:00 Abg W/ Co-Ox RT 10/19/25 Logged 04:00 Chest Portable XY 10/19/25 Logged 04:00 Abg W/ Co-Ox RT 10/18/25 Logged 08:13 Dietary Evaluation Review Comments: Nutrition Recommendation: 1) CCHO 75gm + renal standard diet 2) Pro-stat 1 pk BID 3) Nephro-nellie 1 tab daily 4) Monitor PO intake, lab values, weight trend, and I/O Expected Outcomes/Goals: Wound to improve Intake to meet >75% estimated needs FU 3-5 days SEUN RUBIN RESIDENT Oct 18, 2025 14:31
--- NOTE | 2025-10-18 14:43 | DVHPN2 ---
Progress Note Date Seen: Oct 18, 2025 Has the PT tested + for MRSA If YES, has PT been informed?: No Medical Necessity Reason Pt with a Central, PICC or Fol: Yes The following are medically ne: Central Line, Rosales Catheter Reason for rosales catheter: Strict I&O Subjective Review of Systems: Deferred Objective vital signs Vital Sign Date Time Temp Pulse Resp B/P (MAP) Pulse Ox O2 Delivery O2 Flow Rate FiO2 10/18/25 12:30 105 22 148/79 (102) 98 30 10/18/25 10:07 Mechanical Ventilator+ 10/18/25 08:00 97.5 97.5 Total Intake and Output 10/17/25 10/17/25 10/18/25 15:00 23:00 07:00 Intake Total 149.575 ml 525 ml 452 ml Output Total 150 ml 140 ml Balance 149.575 ml 375 ml 312 ml medications Current Medications Medications Dose Ordered Sig/Esteban Route Start Time Stop Time Status Last Admin Dose Admin Diagnostic Test (Pha) 1 strip ACHS 09/26/25 22:00 10/18/25 11:09 1 STRIP Insulin Human Regular ACHS SC 09/26/25 22:00 10/18/25 11:05 2 UNITS Dextrose 50 ml UD PRN IV 09/26/25 21:15 Sevelamer HCl 800 mg TIDWM PO 09/29/25 18:00 10/17/25 16:31 800 MG Amino Acid Protein 30 ml BID PO 09/30/25 22:00 10/18/25 10:38 30 ML Multivit/Ca Carb/ B Cmplx/FA/Prenat 1 tab DAILY PO 09/30/25 11:12 10/18/25 10:38 1 TAB Epinephrine HCl 250 ml @ 7.5 mls/hr Q24H IV 10/01/25 15:15 10/01/25 15:39 15 MLS/HR Norepinephrine Bitartrate 250 ml @ 3.75 mls/hr Q24H IV 10/01/25 15:15 10/06/25 09:44 3.75 MLS/HR Albumin Human 100 ml @ 100 mls/hr ANABELLA PRN IV 10/03/25 09:45 10/07/25 17:42 100 MLS/HR Aspirin 81 mg DAILY NG 10/05/25 10:00 10/18/25 10:38 81 MG Enteral Nutritional Formula 1,000 ml 40ML/HR GT 10/04/25 18:30 10/16/25 06:36 1,000 ML Famotidine 10 mg HS IV 10/07/25 22:00 10/17/25 21:46 10 MG Albuterol 2.5 mg Q6HR NEB 10/08/25 12:00 10/18/25 12:40 2.5 MG Ipratropium [place] 0.5 mg Q6HR NEB 10/08/25 12:00 10/18/25 12:40 0.5 MG Artificial Tears 2 drop Q2HP PRN EACHEYE 10/08/25 14:30 Levetiracetam 100 ml @ 400 mls/hr BID IV 10/11/25 22:00 10/18/25 10:37 400 MLS/HR Lorazepam 1 mg Q5MINP PRN IV 10/11/25 21:00 Epoetin Mohan-epbx 10,000 unit MWF@2100 SC 10/12/25 21:00 10/16/25 21:12 10,000 UNIT Gentamicin Sulfate 0 ml @ 0 mls/hr PER PHARMACY IV 10/12/25 18:15 Cancel Sodium Chloride 10 ml QSHIFT@10,22 IV 10/15/25 22:00 10/18/25 10:39 10 ML Examination: GENERAL:Abnormal, LUNGS:Abnormal, CVS:Normal, NEURO:Abnormal laboratory and microbiology Laboratory Tests 10/18/25 03:53 Test 10/18/25 03:53 Range/Units Serum Glucose 145 H 74-106 mg/dL Microbiology Date/Time Source Procedure Growth Status 10/08/25 22:28 Urine - Rosales [place] Urine Culture - Final Complete 10/06/25 13:00 Sacrum Gram Stain - Final Resulted 10/06/25 13:00 Wound Culture - Preliminary Enterobacter cloacae Enterococcus faecalis - VRE Resulted 10/02/25 17:33 Blood Blood Culture - Final NO GROWTH AFTER 5 DAYS OF INCUBATION. Complete Problem List/Assessment/Plan Problem List/Assessment/Plan End-stage renal disease on hemodialysis Acute respiratory failure, patient intubated on ventilator Status post cardiac arrest x3 Decompensated heart failure with ejection fraction less than 25% Diabetes with severe diabetic nephropathy Severe peripheral artery disease Anemia of chronic kidney disease Encephalomalacia Hyperphosphatemia Hyperparathyroidism, secondary Hd schedule for Sunday tentative family meeting labs within acceptable limits opens eyes today but did not visually track, continue neuro checks unchanged from the last few days fluid removal as tolerated avoid hypotension neuro checks, neurology on case rest of care per critical care and primary Per ICU nurse at bedside patient now DNR Plan discussed with: Other Dietary Evaluation Review Comments: Nutrition Recommendation: 1) CCHO 75gm + renal standard diet 2) Pro-stat 1 pk BID 3) Nephro-nellie 1 tab daily 4) Monitor PO intake, lab values, weight trend, and I/O Expected Outcomes/Goals: Wound to improve Intake to meet >75% estimated needs FU 3-5 days VAISHALI SAMAYOA MD Oct 18, 2025 14:43
[2025-10-18] MEDS ORDERED: hydrALAZINE HCL 20 MG/ML VL IV PRN (14:45)
--- NOTE | 2025-10-18 15:38 | DVHPN2 ---
Progress Note - Dictate Date Seen: Oct 18, 2025 Has the PT tested + for MRSA If YES, has PT been informed?: No Medical Necessity Reason Pt with a Central, PICC or Fol: Yes The following are medically ne: Central Line, Rosales Catheter Reason for rosales catheter: Strict I&O Subjective Mr. Zamora is a right-handed gentleman with a history of hypertension, diabetes, coronary artery disease, congestive heart failure, chronic kidney failure, chronic leg edema, obesity, stroke, RLS, he was brought to the [facility] on 09/26/2025 with a chief complaint of cardiopulmonary arrest. I saw him on 01/18/2024 for seizure activity I have seen and examined the patient, I have talked to his nurse, he has been his eyes from times time, but is nonresponsive to verbal stimuli, he does not track, no spontaneous movement Urinalysis, 10/08/2025: WBC: 1809, urine leukocyte esterase: 3+ ABG, 10/01/2025: Respiratory acidosis WBC/HB/PLT/MCV, 10/11/2025: 7/8/166/97.4 BUN/CR, 10/11/2025: 57/6.09 GFR, 10/11/2025: 10 HGB A1c, 08/17/2025: 7.4 Liver function tests, 10/11/2025: Unremarkable TG/HDL/LDL/HDL, 01/14/2024: 77/162/103/48 EEG, 10/12/2025: This is a moderately abnormal EEG with epileptiform discharges Chest x-ray, 10/01/2025: 1. Endotracheal tube tip projects at the level of the tiburcio. Recommend retraction by 2 cm. 2. Remaining Lines and tubes as above. 3. Moderate multifocal bilateral pulmonary airspace disease and pulmonary vascular congestion Chest x-ray, 10/11/2025: Endotracheal tube, enteric catheter in satisfactory position. Right tunneled central venous catheter and left chest wall pacemaker, unchanged. Chest x-ray : Lines and tubes in satisfactory position. No significant interval change. CT head, 10/10/2025: 1. No acute intracranial abnormality. 2. 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 3. Likely chronic right cerebellar infarct vital signs Vital Sign Date Time Temp Pulse Resp B/P (MAP) Pulse Ox O2 Delivery O2 Flow Rate FiO2 10/18/25 14:38 105 26 151/80 (103) 99 30 10/18/25 10:07 Mechanical Ventilator+ 10/18/25 08:00 97.5 97.5 Total Intake and Output 10/17/25 10/17/25 10/18/25 15:00 23:00 07:00 Intake Total 149.575 ml 525 ml 452 ml Output Total 150 ml 140 ml Balance 149.575 ml 375 ml 312 ml medications Current Medications Medications Dose Ordered Sig/Esteban Route Start Time Stop Time Status Last Admin Dose Admin Diagnostic Test (Pha) 1 strip ACHS 09/26/25 22:00 10/18/25 11:09 1 STRIP Insulin Human Regular ACHS SC 09/26/25 22:00 10/18/25 11:05 2 UNITS Dextrose 50 ml UD PRN IV 09/26/25 21:15 Amino Acid Protein 30 ml BID PO 09/30/25 22:00 10/18/25 10:38 30 ML Multivit/Ca Carb/ B Cmplx/FA/Prenat 1 tab DAILY PO 09/30/25 11:12 10/18/25 10:38 1 TAB Epinephrine HCl 250 ml @ 7.5 mls/hr Q24H IV 10/01/25 15:15 10/01/25 15:39 15 MLS/HR Norepinephrine Bitartrate 250 ml @ 3.75 mls/hr Q24H IV 10/01/25 15:15 10/06/25 09:44 3.75 MLS/HR Albumin Human 100 ml @ 100 mls/hr ANABELLA PRN IV 10/03/25 09:45 10/07/25 17:42 100 MLS/HR Aspirin 81 mg DAILY NG 10/05/25 10:00 10/18/25 10:38 81 MG Enteral Nutritional Formula 1,000 ml 40ML/HR GT 10/04/25 18:30 10/16/25 06:36 1,000 ML Famotidine 10 mg HS IV 10/07/25 22:00 10/17/25 21:46 10 MG Albuterol 2.5 mg Q6HR NEB 10/08/25 12:00 10/18/25 12:40 2.5 MG Ipratropium [place] 0.5 mg Q6HR NEB 10/08/25 12:00 10/18/25 12:40 0.5 MG Artificial Tears 2 drop Q2HP PRN EACHEYE 10/08/25 14:30 Levetiracetam 100 ml @ 400 mls/hr BID IV 10/11/25 22:00 10/18/25 10:37 400 MLS/HR Lorazepam 1 mg Q5MINP PRN IV 10/11/25 21:00 Epoetin Mohan-epbx 10,000 unit MWF@2100 SC 10/12/25 21:00 10/16/25 21:12 10,000 UNIT Gentamicin Sulfate 0 ml @ 0 mls/hr PER PHARMACY IV 10/12/25 18:15 Cancel Sodium Chloride 10 ml QSHIFT@10,22 IV 10/15/25 22:00 10/18/25 10:39 10 ML Calcium Acetate 667 mg TIDWMEALS PO 10/18/25 18:00 Hydralazine HCl 10 mg Q6HP PRN IV 10/18/25 14:45 objective The patient is well-nourished and well-developed with no distress. The patient is intubated Superficial skin lesions of different ages in the feet MENTAL STATUS: Subjective CRANIAL NERVES: Pupils are equal, round and reactive. He opens his eyes. No signs of facial weakness. There are gagging or coughing reflexes SENSATION: No responses to pain stimuli. MOTOR: Normal tone in the upper and lower extremity. Normal muscle bulk. No fasciculations. Subjective REFLEXES: Deep tendon reflexes are symmetrical. No pathological reflexes. CEREBELLAR/COORDINATION: Deferred GAIT/STATION: deferred. laboratory and microbiology Laboratory Tests 10/18/25 03:53 Test 10/18/25 03:53 Range/Units Serum Glucose 145 H 74-106 mg/dL Problem List Altered mental status Hypoxic encephalopathy Metabolic encephalopathy Cardiopulmonary arrest Status post CPR Chronic multiple strokes Grand mal seizure Diabetic polyneuropathy Restless leg syndrome Wound/wound infection Assessment/Plan Monitoring Supportive treatment ICU care Follow-up lab Stabilize vitals Respiratory support/vent management IV antibiotics Aspirin 81 mg daily Keppra 500 mg b.i.d. IV for now, back to Trileptal 450 mg b.i.d. later Ativan for seizure breakthrough Wound care More recommendation per clinical course Poor prognosis for recovery This medical document was created using an electronic medical record system with [employer] dictation system. Although this document has been carefully reviewed, there may still be some phonetic and typographical errors. These areas are purely typographical due to imperfections of the software programs, and do not reflect any compromise in the patient's medical care. Prognosis poor Dietary Evaluation Review Comments: Nutrition Recommendation: 1) CCHO 75gm + renal standard diet 2) Pro-stat 1 pk BID 3) Nephro-nellie 1 tab daily 4) Monitor PO intake, lab values, weight trend, and I/O Expected Outcomes/Goals: Wound to improve Intake to meet >75% estimated needs FU 3-5 days Plan discussed with: Other PETER MUÑOZ MD Oct 18, 2025 15:38
[2025-10-18] MEDS: CALCIUM ACETATE 667 MG CAP PO SCH (17:39)
[2025-10-18] MEDS: GLYCOPYRROLATE 0.2 MG/ML 1ML VIAL IV ONE (19:53)
--- NOTE | 2025-10-18 23:21 | DVHPN2 ---
Progress Note - Dictate Date Seen: Oct 18, 2025 Has the PT tested + for MRSA If YES, has PT been informed?: No Medical Necessity Reason Pt with a Central, PICC or Fol: Yes The following are medically ne: Central Line, Rosales Catheter Reason for rosales catheter: Strict I&O Subjective Patient was seen and evaluated in follow up in the ICU. Patient is intubated and sedated on ventilator. 30% FiO2. Per RN, linen change was unable to be completed due to the patient desaturating in the 70's. HGB 8.3, HCT 25.4, K 3.3, BUN 35, SAL[employer] 4.46. vital signs Vital Sign Date Time Temp Pulse Resp B/P (MAP) Pulse Ox O2 Delivery O2 Flow Rate FiO2 10/18/25 12:30 105 22 148/79 (102) 98 30 10/18/25 10:07 Mechanical Ventilator+ 10/18/25 08:00 97.5 97.5 Total Intake and Output 10/17/25 10/17/25 10/18/25 15:00 23:00 07:00 Intake Total 149.575 ml 525 ml 452 ml Output Total 150 ml 140 ml Balance 149.575 ml 375 ml 312 ml medications Current Medications Medications Dose Ordered Sig/Esteban Route Start Time Stop Time Status Last Admin Dose Admin Diagnostic Test (Pha) 1 strip ACHS 09/26/25 22:00 10/18/25 11:09 1 STRIP Insulin Human Regular ACHS SC 09/26/25 22:00 10/18/25 11:05 2 UNITS Dextrose 50 ml UD PRN IV 09/26/25 21:15 Sevelamer HCl 800 mg TIDWM PO 09/29/25 18:00 10/17/25 16:31 800 MG Amino Acid Protein 30 ml BID PO 09/30/25 22:00 10/18/25 10:38 30 ML Multivit/Ca Carb/ B Cmplx/FA/Prenat 1 tab DAILY PO 09/30/25 11:12 10/18/25 10:38 1 TAB Epinephrine HCl 250 ml @ 7.5 mls/hr Q24H IV 10/01/25 15:15 10/01/25 15:39 15 MLS/HR Norepinephrine Bitartrate 250 ml @ 3.75 mls/hr Q24H IV 10/01/25 15:15 10/06/25 09:44 3.75 MLS/HR Albumin Human 100 ml @ 100 mls/hr ANABELLA PRN IV 10/03/25 09:45 10/07/25 17:42 100 MLS/HR Aspirin 81 mg DAILY NG 10/05/25 10:00 10/18/25 10:38 81 MG Enteral Nutritional Formula 1,000 ml 40ML/HR GT 10/04/25 18:30 10/16/25 06:36 1,000 ML Famotidine 10 mg HS IV 10/07/25 22:00 10/17/25 21:46 10 MG Albuterol 2.5 mg Q6HR NEB 10/08/25 12:00 10/18/25 12:40 2.5 MG Ipratropium [place] 0.5 mg Q6HR NEB 10/08/25 12:00 10/18/25 12:40 0.5 MG Artificial Tears 2 drop Q2HP PRN EACHEYE 10/08/25 14:30 Levetiracetam 100 ml @ 400 mls/hr BID IV 10/11/25 22:00 10/18/25 10:37 400 MLS/HR Lorazepam 1 mg Q5MINP PRN IV 10/11/25 21:00 Epoetin Mohan-epbx 10,000 unit MWF@2100 SC 10/12/25 21:00 10/16/25 21:12 10,000 UNIT Gentamicin Sulfate 0 ml @ 0 mls/hr PER PHARMACY IV 10/12/25 18:15 Cancel Sodium Chloride 10 ml QSHIFT@10,22 IV 10/15/25 22:00 10/18/25 10:39 10 ML objective GENERAL: Ill appearing, intubated on ventilator. Morbidly obese. EYES: PERRL, EOMI. Anicteric. HENT: Moist mucous membranes. LUNGS: Decreased breath sounds. CARDIOVASCULAR: Regular rate and rhythm. ABDOMEN: Soft, non-tender and non-distended. EXTREMITIES: No edema. SKIN: Warm, dry. laboratory and microbiology Laboratory Tests 10/18/25 03:53 Test 10/18/25 03:53 Range/Units Serum Glucose 145 H 74-106 mg/dL Problem List Acute syncopal episode. Status post cardiac arrest x3. ESRD on hemodialysis. Hypertension. Peripheral neuropathy. Severe peripheral artery disease. Acute on chronic congestive heart failure exacerbation. History of CVA. Anemia of chronic disease. Diabetes with severe diabetic nephropathy. History of pacemaker. Morbidly obese. Decompensated heart failure with ejection fraction less than 25%. Encephalomalacia. Hyperphosphatemia. Hyperparathyroidism. Assessment/Plan Continued all current supportive medical care. Aspirin. Nebulized breathing treatments. Vasopressors for hemodynamic support. Additional plan as per the hospital course. Critical care time of 45 minutes provided to include time spent evaluation of patient at bedside, when appropriate patient/family education for diagnosis, treatment plan, review of pertinent medical information and discussion of care with specialty providers and PCP. Mechanical ventilator parameters, treatment and adjustments have personally been reviewed by me and treatment plan by coke crusher operator has also been reviewed. Dietary Evaluation Review Comments: Nutrition Recommendation: 1) CCHO 75gm + renal standard diet 2) Pro-stat 1 pk BID 3) Nephro-nellie 1 tab daily 4) Monitor PO intake, lab values, weight trend, and I/O Expected Outcomes/Goals: Wound to improve Intake to meet >75% estimated needs FU 3-5 days Plan discussed with: Other MATTHEW CIFUENTES MD Oct 18, 2025 13:34
--- NOTE | 2025-10-18 23:34 | DVHPN2 ---
[facility] DOS: 10/18/2025 Patient seen and examined at bedside. Intubated on mechanical ventilator. Overnight events reviewed. Reviewed: Care Plan, H&P, Labs, Medications, Previous Orders, Radiology Changes from previous H/P or p: No Changes Eyes: No Pain, No Vision change, No Conjunctivae inflammation, No Eyelid inflammation, No Other, No Redness ENT: No Ear pain, No Ear discharge, No Nose pain, No Nose discharge, No Nose congestion, No Mouth pain, No Mouth swelling, No Throat pain, No Throat swelling, No Other Cardiovascular: Chest Pain; No Palpitations, No Orthopnea, No Paroxysmal Noc. Dyspnea, No Edema, No Lt Headedness, No Other Respiratory: No Cough, No Dry, No Shortness of breath, No SOB with excertion, No Wheezing, No Hemoptysis, No Pleuritic Pain, No Sputum, No Other Gastrointestinal: No Nausea, No Vomiting, No Abdominal Pain, No Diarrhea, No Constipation, No Melena, No Hematochezia, No Other Genitourinary: No Dysuria, No Frequency, No Incontinence, No Hematuria, No Retention; Other (On hemodialysis) Musculoskeletal: No other, No neck pain, No shoulder pain, No arm pain, No back pain, No hand pain, No leg pain, No foot pain Skin: No Rash, No Lesions, No Jaundice, No Bruising, No Other Objective Vitals Vital Signs Date Time Temp Pulse Resp B/P (MAP) Pulse Ox O2 Delivery O2 Flow Rate FiO2 10/18/25 22:00 99 17 148/77 (100) 99 10/18/25 21:53 30 10/18/25 21:50 Mechanical Ventilator+ 10/18/25 20:00 98.6 98.6 Intake/Output Intake and Output 10/18/25 07:00 Intake Total 1126.575 ml Output Total 290 ml Balance 836.575 ml Intake Oral 150 ml IV Total 349.575 ml Tube Feeding 627 ml Output Urine Total 290 ml # Bowel Movements 1 Exam Gen.: Patient lying in bed in medical ICU. Intubated on mechanical ventilator. Head: Normocephalic, atraumatic. Eyes: PERRLA. Ears: Normal external anatomy. Throat: Endotracheal tube and orogastric tube in place. Neck: Supple, trachea midline. Chest: Transmitted breath sounds bilaterally. Decreased air entry bilaterally. No wheezing. Bibasilar crackles. Cardiovascular: Positive S1, positive S2. Regular rate and rhythm. Abdomen: Positive bowel sounds in all 4 quadrants. Soft, nontender, nondistended. : Salas in place. Normal external genitalia. Rectal: Deferred. Skin: Warm, dry. Intact. Extremities: 2+ radial pulses bilaterally. No lower extremity edema. Neuro: Off sedation Medications Current Medications Medications Dose Ordered Sig/Esteban Route Start Time Stop Time Status Last Admin Dose Admin Diagnostic Test (Pha) 1 strip ACHS 09/26/25 22:00 10/18/25 21:34 1 STRIP Insulin Human Regular ACHS SC 09/26/25 22:00 10/18/25 21:34 2 UNITS Dextrose 50 ml UD PRN IV 09/26/25 21:15 Amino Acid Protein 30 ml BID PO 09/30/25 22:00 10/18/25 21:34 30 ML Multivit/Ca Carb/ B Cmplx/FA/Prenat 1 tab DAILY PO 09/30/25 11:12 10/18/25 10:38 1 TAB Epinephrine HCl 250 ml @ 7.5 mls/hr Q24H IV 10/01/25 15:15 10/01/25 15:39 15 MLS/HR Norepinephrine Bitartrate 250 ml @ 3.75 mls/hr Q24H IV 10/01/25 15:15 10/06/25 09:44 3.75 MLS/HR Albumin Human 100 ml @ 100 mls/hr ANABELLA PRN IV 10/03/25 09:45 10/07/25 17:42 100 MLS/HR Aspirin 81 mg DAILY NG 10/05/25 10:00 10/18/25 10:38 81 MG Enteral Nutritional Formula 1,000 ml 40ML/HR GT 10/04/25 18:30 10/16/25 06:36 1,000 ML Famotidine 10 mg HS IV 10/07/25 22:00 10/18/25 21:34 10 MG Albuterol 2.5 mg Q6HR NEB 10/08/25 12:00 10/18/25 18:21 2.5 MG Ipratropium [place] 0.5 mg Q6HR NEB 10/08/25 12:00 10/18/25 18:21 0.5 MG Artificial Tears 2 drop Q2HP PRN EACHEYE 10/08/25 14:30 Levetiracetam 100 ml @ 400 mls/hr BID IV 10/11/25 22:00 10/18/25 21:33 400 MLS/HR Lorazepam 1 mg Q5MINP PRN IV 10/11/25 21:00 Epoetin Mohan-epbx 10,000 unit MWF@2100 SC 10/12/25 21:00 10/16/25 21:12 10,000 UNIT Gentamicin Sulfate 0 ml @ 0 mls/hr PER PHARMACY IV 10/12/25 18:15 Cancel Sodium Chloride 10 ml QSHIFT@10,22 IV 10/15/25 22:00 10/18/25 21:34 10 ML Calcium Acetate 667 mg TIDWMEALS PO 10/18/25 18:00 10/18/25 17:39 667 MG Hydralazine HCl 10 mg Q6HP PRN IV 10/18/25 14:45 Laboratory Results Laboratory Tests 10/18/25 03:53 10/18/25 19:34 Chemistry Test 10/18/25 03:53 Calcium Level 9.4 mg/dL (8.7-10.4) Urinalysis Test 10/08/25 22:28 Urine Color Dark-brown (Yellow) Urine Clarity Ex.turbid (Clear) Urine pH 6.0 (5.0-9.0) Urine Specific [place] 1.017 (1.001-1.035) Urine Protein 2+ (Negative) H Urine Ketones Negative (Negative) Urine Blood 3+ /uL (Negative) H Urine Nitrite Negative (Negative) Urine Bilirubin Negative (Negative) Urine Urobilinogen Normal mg/dL (Negative) Urine Leukocyte Esterase 3+ /uL (Negative) Urine RBC 320 /hpf (0 - 3) Urine WBC Clumps Present /hpf (None Seen) Urine Microscopic WBC 1809 /HPF (0-3) H Urine Squamous Epithelial Cells Many /hpf (<5) Urine Amorphous Crystals Few /hpf (None Seen) Urine Bacteria Many /hpf (None Seen) H Urine Mucus Few (None Seen) Urine Glucose Normal mg/dL (Normal) Blood Gas Results Test 10/18/25 07:52 Arterial Blood pH 7.501 (7.350-7.450) FiO2 % 30.0 Microbiology Microbiology Date/Time Source Procedure Growth Status 10/08/25 22:28 Urine - [place] Urine Culture - Final Complete 10/06/25 13:00 Sacrum Gram Stain - Final Resulted 10/06/25 13:00 Wound Culture - Preliminary Enterobacter cloacae Enterococcus faecalis - VRE Resulted 10/02/25 17:33 Blood Blood Culture - Final NO GROWTH AFTER 5 DAYS OF INCUBATION. Complete Assessment/Plan Assessment/Plan Impression: Acute hypoxic respiratory failure On mechanical ventilator Lactic acidosis S/p cardiac arrest Acute on chronic CHF ESRD, on hemodialysis DM type II Shock Morbid obesity Cellulitis Sacral ulcer Events: Remains on vent support On AC mode; RR 18, VT 450, PEEP 8, FiO2 30% Off sedation since 10/08/25 Patient is responsive to eye opening, but is not responsive to verbal stimuli. Head of bed elevation Aspiration precautions Increased oral secretions - glycopyrrolate 0.2 mg IVP given. Chest x-ray shows unchanged pulmonary vascular congestion and low lung volumes. Off pressors, hemodynamically stable. Patient noted to have increased pressor requirements during HD. Hemodialysis per Nephrology Hemoglobin is stable. Continue bronchodilators Completed antibiotics Antiepileptic with Keppra Hemodialysis per Nephrology Follow up Nephrology recs Monitor renal function Salas was exchanged 10/09. Tube feeds for nutritional support Wound care Patient has poor prognosis. Discontinued Precedex. Family meeting on Sunday to discuss goals of care. CT head reveals no acute intracranial abnormality. 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 Likely chronic right cerebellar infarct. KUB shows nonobstructive bowel gas pattern. Labs and imaging reviewed. Rest of plan as noted below. Plan: s/p intubation on mechanical ventilator. On AC mode; RR 18, VT 450, PEEP 8, FiO2 30% Titrate FIO2 to keep O2 saturation above 90%. VAP bundle. Daily ABG and CXR while intubated Pressors as necessary for hemodynamic support Titrate to keep mean arterial pressure greater than 65 mmHg. Antibiotics. Follow up cultures. HD per Nephrology Diurese to euvolemia Monitor renal function Monitor electrolytes. Supplement as necessary. Monitor ins and outs. Recommend judicious use of fluids due to CHF. Wound care Monitor lactic acid. Recommend diet and lifestyle modifications for weight reduction Obesity complicates all care GI prophylaxis. DVT prophylaxis. Prognosis: Poor given patient's multiple co-morbidities. Condition: Critical Rest of plan per hospitalist and other consultants. A total of 35 minutes of critical care time was spent reviewing the patient record, examining the patient, making a diagnostic and therapeutic plan, discussing this plan with the medical personnel, following up on diagnostic studies and following the patient for clinical stability excluding any and all procedures. At least 50% of this time was spent in direct, [id number] contact. Thank you, Dr. Cantu, for allowing me to participate in this patient's care. Further recommendations will depend on the patient's clinical course. Please do not hesitate to contact me if you have any questions or concerns. This medical document was created using an electronic medical record system with [employer] dictation system. Although these documentations are being carefully reviewed, there may still be some phonetic and typographical changes. The errors are purely typographical, due to imperfection on the software program, and do not reflect any compromise in the patient's medical care. Plan discussed with: Other (JOYCE Lauren) Visit Coding Pulmonary Billing Provider: JEREMIAH GAMEZ MD Date of Service if different f: Oct 18, 2025 Common Visit Codes: [id number] INP/OBS CARE(HIGH), [id number] CARE 30-74 MIN JEREMIAH GAMEZ MD Oct 18, 2025 23:34
[2025-10-19] VITALS (71 sets, daily range): BP systolic 121–171; BP diastolic 64–107; PULSE 90–110; RESP 10–26; TEMP 96.8–98.8; O2SAT 97–100
--- NOTE | 2025-10-19 04:30 | DVH ---
CHEST RADIOGRAPH INDICATION: INTUBATED PATIENT TECHNIQUE: Single frontal view of the chest was obtained COMPARISON: XY CHEST PORTABLE on DOS: 10/18/25, XY CHEST PORTABLE on DOS: 10/17/25, XY CHEST PORTABLE on DOS: 10/16/25, XY CHEST PORTABLE on DOS: 10/15/25, XY CHEST PORTABLE on DOS: 10/14/25 FINDINGS: Lines and Tubes: Unchanged. Lungs: Diffuse increased prominence of the pulmonary vasculature. Pleura: No effusion. No pneumothorax. Cardiomediastinal contours: Cardiomegaly. Bones: Unremarkable IMPRESSION: 1. Stable cardiomegaly and pulmonary vascular congestion. 2. Lines and tubes unchanged.
[2025-10-19 04:48] LABS: Hematocrit 25.8 % (41.0-53.0); Hemoglobin 8.4 g/dL (13.5-17.5); Mean Corpuscular Hemoglobin 32.3 pg (28.0-32.0); Mean Corpuscular Volume 99.4 fL (80.0-100.0); Nucleated Red Blood Cells % 0.0 %
[2025-10-19 05:05] LABS: Alanine Aminotransferase 22 U/L (7-40); Albumin 3.4 g/dL (3.2-4.8); Anion Gap 11 (5-15); BUN/Creatinine Ratio 9.8 (10.0-20.0); Bilirubin, Total 0.5 mg/dL (0.2-1.0); Calcium 9.4 mg/dL (8.7-10.4); Carbon Dioxide 30 mmol/L (20-31); Chloride 104 mmol/L (98-107); Potassium 3.6 mmol/L (3.5-5.1); Sodium 145 mmol/L (136-145); Total Protein 6.8 g/dL (5.7-8.2)
[2025-10-19 05:11] LABS: Alkaline Phosphatase 190 U/L (46-116); Blood Urea Nitrogen 52 mg/dL (9-23); Glucose 140 mg/dL (74-106)
[2025-10-19 07:36] LABS: Base Excess 5.8 mmol/L (-2.0-3.0)
--- NOTE | 2025-10-19 10:20 | DVHPN2 ---
Progress Note - Dictate Date Seen: Oct 19, 2025 Has the PT tested + for MRSA If YES, has PT been informed?: No Medical Necessity Reason Pt with a Central, PICC or Fol: Yes The following are medically ne: Central Line, Rosales Catheter Reason for rosales catheter: Strict I&O Subjective Mr. Zamora is a right-handed gentleman with a history of hypertension, diabetes, coronary artery disease, congestive heart failure, chronic kidney failure, chronic leg edema, obesity, stroke, RLS, he was brought to the [facility] on 09/26/2025 with a chief complaint of cardiopulmonary arrest. I saw him on 01/18/2024 for seizure activity I have seen and examined the patient, I have talked to his nurse, his brother in the room. The eyes are open, and is rolling from [id number], but is nonresponsive to verbal stimuli and he does not not track On 10/17/2025, questionable anisocoria noticed with pupil size around 4 mm, the right side slightly bigger Urinalysis, 10/08/2025: WBC: 1809, urine leukocyte esterase: 3+ ABG, 10/01/2025: Respiratory acidosis WBC/HB/PLT/MCV, 10/11/2025: 7/8/166/97.4 BUN/CR, 10/11/2025: 57/6.09 GFR, 10/11/2025: 10 HGB A1c, 08/17/2025: 7.4 Liver function tests, 10/11/2025: Unremarkable TG/HDL/LDL/HDL, 01/14/2024: 77/162/103/48 EEG, 10/12/2025: This is a moderately abnormal EEG with epileptiform discharges Chest x-ray, 10/01/2025: 1. Endotracheal tube tip projects at the level of the tiburcio. Recommend retraction by 2 cm. 2. Remaining Lines and tubes as above. 3. Moderate multifocal bilateral pulmonary airspace disease and pulmonary vascular congestion Chest x-ray, 10/11/2025: Endotracheal tube, enteric catheter in satisfactory position. Right tunneled central venous catheter and left chest wall pacemaker, unchanged. Chest x-ray : Lines and tubes in satisfactory position. No significant interval change. CT head, 10/10/2025: 1. No acute intracranial abnormality. 2. 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 3. Likely chronic right cerebellar infarct vital signs Vital Sign Date Time Temp Pulse Resp B/P (MAP) Pulse Ox O2 Delivery O2 Flow Rate FiO2 10/19/25 06:30 98 26 153/87 (109) 98 30 10/19/25 05:31 Mechanical Ventilator+ 10/19/25 04:00 98.8 98.8 Total Intake and Output 10/18/25 10/18/25 10/19/25 15:00 23:00 07:00 Intake Total 530 ml 477 ml Output Total 140 ml Balance 530 ml 337 ml medications Current Medications Medications Dose Ordered Sig/Esteban Route Start Time Stop Time Status Last Admin Dose Admin Diagnostic Test (Pha) 1 strip ACHS 09/26/25 22:00 10/19/25 06:30 1 STRIP Insulin Human Regular ACHS SC 09/26/25 22:00 10/19/25 06:30 2 UNITS Dextrose 50 ml UD PRN IV 09/26/25 21:15 Amino Acid Protein 30 ml BID PO 09/30/25 22:00 10/19/25 10:15 30 ML Multivit/Ca Carb/ B Cmplx/FA/Prenat 1 tab DAILY PO 09/30/25 11:12 10/19/25 10:16 1 TAB Epinephrine HCl 250 ml @ 7.5 mls/hr Q24H IV 10/01/25 15:15 10/01/25 15:39 15 MLS/HR Norepinephrine Bitartrate 250 ml @ 3.75 mls/hr Q24H IV 10/01/25 15:15 10/06/25 09:44 3.75 MLS/HR Albumin Human 100 ml @ 100 mls/hr ANABELLA PRN IV 10/03/25 09:45 10/07/25 17:42 100 MLS/HR Aspirin 81 mg DAILY NG 10/05/25 10:00 10/19/25 10:16 81 MG Enteral Nutritional Formula 1,000 ml 40ML/HR GT 10/04/25 18:30 10/16/25 06:36 1,000 ML Famotidine 10 mg HS IV 10/07/25 22:00 10/18/25 21:34 10 MG Albuterol 2.5 mg Q6HR NEB 10/08/25 12:00 10/19/25 06:30 2.5 MG Ipratropium [place] 0.5 mg Q6HR NEB 10/08/25 12:00 10/19/25 06:31 0.5 MG Artificial Tears 2 drop Q2HP PRN EACHEYE 10/08/25 14:30 Levetiracetam 100 ml @ 400 mls/hr BID IV 10/11/25 22:00 10/19/25 10:15 400 MLS/HR Lorazepam 1 mg Q5MINP PRN IV 10/11/25 21:00 Epoetin Mohan-epbx 10,000 unit MWF@2100 SC 10/12/25 21:00 10/16/25 21:12 10,000 UNIT Gentamicin Sulfate 0 ml @ 0 mls/hr PER PHARMACY IV 10/12/25 18:15 Cancel Sodium Chloride 10 ml QSHIFT@,22 IV 10/15/25 22:00 10/19/25 10:00 10 ML Calcium Acetate 667 mg TIDWMEALS PO 10/18/25 18:00 10/19/25 08:25 667 MG Hydralazine HCl 10 mg Q6HP PRN IV 10/18/25 14:45 objective The patient is well-nourished and well-developed with no distress. The patient is intubated Superficial skin lesions of different ages in the feet MENTAL STATUS: Subjective CRANIAL NERVES: Pupils are round and reactive. Rolling eye movement noticed. No signs of facial weakness. There are gagging or coughing reflexes SENSATION: No responses to pain stimuli. MOTOR: Normal tone in the upper and lower extremity. Normal muscle bulk. No fasciculations. Subjective REFLEXES: Deep tendon reflexes are symmetrical. No pathological reflexes. CEREBELLAR/COORDINATION: Deferred GAIT/STATION: deferred. laboratory and microbiology Laboratory Tests 10/19/25 03:20 Test 10/19/25 03:20 Range/Units Serum Glucose 140 H 74-106 mg/dL Problem List Altered mental status Hypoxic encephalopathy Metabolic encephalopathy Cardiopulmonary arrest Status post CPR Chronic multiple strokes Grand mal seizure Diabetic polyneuropathy Restless leg syndrome Wound/wound infection ? Anisocoria Assessment/Plan Monitoring Supportive treatment ICU care Follow-up lab Stabilize vitals Respiratory support/vent management IV antibiotics Aspirin 81 mg daily Keppra 500 mg b.i.d. IV for now, back to Trileptal 450 mg b.i.d. later [facility] Wound care More recommendation per clinical course Poor prognosis for recovery This medical document was created using an electronic medical record system with [employer] computerized dictation system. Although this document has been carefully reviewed, there may still be some phonetic and typographical errors. These areas are purely typographical due to imperfections of the software programs, and do not reflect any compromise in the patient's medical care. Prognosis poor Dietary Evaluation Review Comments: Nutrition Recommendation: 1) CCHO 75gm + renal standard diet 2) Pro-stat 1 pk BID 3) Nephro-nellie 1 tab daily 4) Monitor PO intake, lab values, weight trend, and I/O Expected Outcomes/Goals: Wound to improve Intake to meet >75% estimated needs FU 3-5 days Plan discussed with: Other PETER MUÑOZ MD Oct 19, 2025 10:20
--- NOTE | 2025-10-19 10:40 | DVHPN2 ---
Progress Note Date Seen: Oct 19, 2025 Has the PT tested + for MRSA If YES, has PT been informed?: No Medical Necessity Reason Pt with a Central, PICC or Fol: Yes The following are medically ne: Central Line, Rosales Catheter Reason for rosales catheter: Strict I&O Subjective Review of Systems: RESPIRATORY:Abnormal Other Systems: Patient seen and examined by myself today in follow-up, patient remained intubated on ventilator Patient examined hemodialysis, blood pressure stable Objective vital signs Vital Sign Date Time Temp Pulse Resp B/P (MAP) Pulse Ox O2 Delivery O2 Flow Rate FiO2 10/19/25 06:30 98 26 153/87 (109) 98 30 10/19/25 05:31 Mechanical Ventilator+ 10/19/25 04:00 98.8 98.8 Total Intake and Output 10/18/25 10/18/25 10/19/25 15:00 23:00 07:00 Intake Total 530 ml 477 ml Output Total 140 ml Balance 530 ml 337 ml medications Current Medications Medications Dose Ordered Sig/Esteban Route Start Time Stop Time Status Last Admin Dose Admin Diagnostic Test (Pha) 1 strip ACHS 09/26/25 22:00 10/19/25 06:30 1 STRIP Insulin Human Regular ACHS SC 09/26/25 22:00 10/19/25 06:30 2 UNITS Dextrose 50 ml UD PRN IV 09/26/25 21:15 Amino Acid Protein 30 ml BID PO 09/30/25 22:00 10/19/25 10:15 30 ML Multivit/Ca Carb/ B Cmplx/FA/Prenat 1 tab DAILY PO 09/30/25 11:12 10/19/25 10:16 1 TAB Epinephrine HCl 250 ml @ 7.5 mls/hr Q24H IV 10/01/25 15:15 10/01/25 15:39 15 MLS/HR Norepinephrine Bitartrate 250 ml @ 3.75 mls/hr Q24H IV 10/01/25 15:15 10/06/25 09:44 3.75 MLS/HR Albumin Human 100 ml @ 100 mls/hr ANABELLA PRN IV 10/03/25 09:45 10/07/25 17:42 100 MLS/HR Aspirin 81 mg DAILY NG 10/05/25 10:00 10/19/25 10:16 81 MG Enteral Nutritional Formula 1,000 ml 40ML/HR GT 10/04/25 18:30 10/16/25 06:36 1,000 ML Famotidine 10 mg HS IV 10/07/25 22:00 10/18/25 21:34 10 MG Albuterol 2.5 mg Q6HR NEB 10/08/25 12:00 10/19/25 06:30 2.5 MG Ipratropium [place] 0.5 mg Q6HR NEB 10/08/25 12:00 10/19/25 06:31 0.5 MG Artificial Tears 2 drop Q2HP PRN EACHEYE 10/08/25 14:30 Levetiracetam 100 ml @ 400 mls/hr BID IV 10/11/25 22:00 10/19/25 10:15 400 MLS/HR Lorazepam 1 mg Q5MINP PRN IV 10/11/25 21:00 Epoetin Mohan-epbx 10,000 unit MWF@2100 SC 10/12/25 21:00 10/16/25 21:12 10,000 UNIT Gentamicin Sulfate 0 ml @ 0 mls/hr PER PHARMACY IV 10/12/25 18:15 Cancel Sodium Chloride 10 ml QSHIFT@10,22 IV 10/15/25 22:00 10/19/25 10:00 10 ML Calcium Acetate 667 mg TIDWMEALS PO 10/18/25 18:00 10/19/25 08:25 667 MG Hydralazine HCl 10 mg Q6HP PRN IV 10/18/25 14:45 Examination: LUNGS:Normal, CVS:Abnormal, MSK:Abnormal laboratory and microbiology Laboratory Tests 10/19/25 03:20 Test 10/19/25 03:20 Range/Units Serum Glucose 140 H 74-106 mg/dL Microbiology Date/Time Source Procedure Growth Status 10/08/25 22:28 Urine - Rosales Port Urine Culture - Final Complete 10/06/25 13:00 Sacrum Gram Stain - Final Resulted 10/06/25 13:00 Wound Culture - Preliminary Enterobacter cloacae Enterococcus faecalis - VRE Resulted 10/02/25 17:33 Blood Blood Culture - Final NO GROWTH AFTER 5 DAYS OF INCUBATION. Complete Problem List/Assessment/Plan Problem List/Assessment/Plan End-stage renal disease on hemodialysis Acute respiratory failure, patient intubated on ventilator Status post cardiac arrest x3 Decompensated heart failure with ejection fraction less than 25% Diabetes with severe diabetic nephropathy Severe peripheral artery disease Anemia of chronic kidney disease Encephalomalacia Hyperphosphatemia Hyperparathyroidism, secondary Recommendations Continue with UF to 3 L as tolerated Epogen 75175 subQ 3 times weekly Albumin 25% IV with hemodialysis Strict I&Os Renal diet IV pressors for blood pressure support phosphate binders Calcitriol Discontinue amlodipine We will continue to follow Plan discussed with: Other (Nurse) Dietary Evaluation Review Comments: Nutrition Recommendation: 1) CCHO 75gm + renal standard diet 2) Pro-stat 1 pk BID 3) Nephro-nellie 1 tab daily 4) Monitor PO intake, lab values, weight trend, and I/O Expected Outcomes/Goals: Wound to improve Intake to meet >75% estimated needs FU 3-5 days AKASH BARRAZA MD Oct 19, 2025 10:40
--- NOTE | 2025-10-19 16:37 | DVHPNRES ---
Progress Note Date Seen: Oct 19, 2025 Resident Creating Document: YOBANI GOETZ RESIDENT Has the PT tested + for MRSA If YES, has PT been informed?: No Medical Necessity Reason Pt with a Central, PICC or Fol: Yes The following are medically ne: Central Line, Rosales Catheter Reason for rosales catheter: Strict I&O Subjective Review of Systems Mr. Zamora is a 59 year old male with PMHx of ESRD with recent initiation of dialysis approximately 2 weeks ago , HFrEF with pacemaker placement, CVA in 2012, type 2 diabetes mellitus, gout, and hypertension, who presented to [facility] due to witnessed cardiopulmonary arrest during dialysis on 09/26/2025. At the time of evaluation the patient is sedated and intubated, majority of history is taken from previous medical record and his sister, Claudia Burnett. Per record, the patient became unresponsive during hemodialysis, CPR was intiated by bystanders and AED was used, by the time EMS arrived on scene the patient was found A&Ox4, GCS15, and moaning in pain. On evaluation in the ED, patient was complaining of dyspnea and chest wall pain. He was afebrile, normocardic with pacedc rhythm, hypertensive, and saturating adequately on room air. EKG showed paced rhythm with widened QTc. Initial labs are significant for normocytic anemia, hypokalemia, creatinine 6.85, BUN 43, and BNP 1232.11. Troponins were negative. UA without alteration. Chest xray significant for lungs with bilateral patchy airspace opacities, prominent pulmonary vasculature, with small bilateral pleural effusions. Head CT shows bilateral cerebral encephalomalacia and mild global cerebral volume loss without intracranial hemorrhage or mass effect. The patient was started on IV diuresis and admitted for further work up and managment. He was evaluated by cardiology who continued diuresis. The patient was evaluated by nephrology who state that given diminished cardiac function likely patient cannot tolerate large ultrafiltration goals. He was scheduled for further dialysis, having undergone dialysis on 09/28/2025 without issue. He was receiving dialysis on 10/01/2025 when he became bradycardic and went into asystole. Code blue was called and CPR was intiated with ROSC achieved after 7 minutes of CPR. He was transferred to the ICU and he entered asystole two more times in a span of 15 minutes a with ROSC achieved after 11 minutes of CPR and at 2 minutes of CPR respectively. He was intubated and started on pressors, sedation, antibiotics, and bicarbonate drip. On initial evaluation in the ICU, the patient is intubated, sedated, and mechanically ventilated, on levophed 2 mcg, pupils are reactive, no response to painful stimulus, cough and gag are present. Labs are significant for normocytic anemia, worsening thrombocytopenia, and worsening renal function. ABG is significant for metabolic alkalosis. Most recent chest xray shows worsening congestion. Past medical history: ESRD on dialysis, HFrEF, CVA in 2012, Type 2 diabetes mellitus, and hypertension Past surgical history: Pacemaker placement and replacement, Right femoral fracture repair Allergies: Denies Social: Per sister, the patient currently smokes marijuana, denies other drug use. Patient currently lives with his mother and his brother. Home meds: Famotidine, Allopurinol, pregabalin, furosemide, sevelamer, metoprolol, and lokelma 10/19/2025: Patient seen and examined at bedside, stable pulmonary vascular congestion on chest x-ray. Remains on respiratory rate 18, tidal volume 450, peep 8, FiO2 30%. Detailed discussion held with the younger brother at bedside, all questions answered concerns were addressed. Awaiting sister who is the decision maker to make the final decision on compassionate extubation versus tracheostomy. Objective vital signs Vital Sign Date Time Temp Pulse Resp B/P (MAP) Pulse Ox O2 Delivery O2 Flow Rate FiO2 10/19/25 16:26 108 24 136/64 (88) 100 30 10/19/25 16:00 97.7 97.7 10/19/25 16:00 Mechanical Ventilator+ Total Intake and Output 10/18/25 10/18/25 10/19/25 15:00 23:00 07:00 Intake Total 530 ml 477 ml Output Total 140 ml Balance 530 ml 337 ml medications Current Medications Medications Dose Ordered Sig/Esteban Route Start Time Stop Time Status Last Admin Dose Admin Diagnostic Test (Pha) 1 strip ACHS 09/26/25 22:00 10/19/25 11:30 1 STRIP Insulin Human Regular ACHS SC 09/26/25 22:00 10/19/25 12:29 2 UNITS Dextrose 50 ml UD PRN IV 09/26/25 21:15 Amino Acid Protein 30 ml BID PO 09/30/25 22:00 10/19/25 10:15 30 ML Multivit/Ca Carb/ B Cmplx/FA/Prenat 1 tab DAILY PO 09/30/25 11:12 10/19/25 10:16 1 TAB Epinephrine HCl 250 ml @ 7.5 mls/hr Q24H IV 10/01/25 15:15 10/01/25 15:39 15 MLS/HR Norepinephrine Bitartrate 250 ml @ 3.75 mls/hr Q24H IV 10/01/25 15:15 10/06/25 09:44 3.75 MLS/HR Albumin Human 100 ml @ 100 mls/hr ANABELLA PRN IV 10/03/25 09:45 10/07/25 17:42 100 MLS/HR Aspirin 81 mg DAILY NG 10/05/25 10:00 10/19/25 10:16 81 MG Enteral Nutritional Formula 1,000 ml 40ML/HR GT 10/04/25 18:30 10/16/25 06:36 1,000 ML Famotidine 10 mg HS IV 10/07/25 22:00 10/18/25 21:34 10 MG Albuterol 2.5 mg Q6HR NEB 10/08/25 12:00 10/19/25 11:55 2.5 MG Ipratropium [place] 0.5 mg Q6HR NEB 10/08/25 12:00 10/19/25 11:55 0.5 MG Artificial Tears 2 drop Q2HP PRN EACHEYE 10/08/25 14:30 Levetiracetam 100 ml @ 400 mls/hr BID IV 10/11/25 22:00 10/19/25 10:15 400 MLS/HR Lorazepam 1 mg Q5MINP PRN IV 10/11/25 21:00 Epoetin Mohan-epbx 10,000 unit MWF@2100 SC 10/12/25 21:00 10/16/25 21:12 10,000 UNIT Gentamicin Sulfate 0 ml @ 0 mls/hr PER PHARMACY IV 10/12/25 18:15 Cancel Sodium Chloride 10 ml QSHIFT@10,22 IV 10/15/25 22:00 10/19/25 10:00 10 ML Calcium Acetate 667 mg TIDWMEALS PO 10/18/25 18:00 10/19/25 12:28 667 MG Hydralazine HCl 10 mg Q6HP PRN IV 10/18/25 14:45 Examination General: Patient is intubated, mechanically ventilated, non-reactive to painful stimulus HEENT: Normocephalic, atraumatic, 3 mm very sluggish, no EOM, eyes open and moving, unable to track objects, ET tube in place, orogastric tube in palce Respiratory/pulmonary: Bilateral chest expansion, decreased breath sounds bilaterally, wheezing in bilateral upper lobes Cardiovascular: Normal RRR Abdomen: Obese, Abdomen nondistended, normal bowel sounds no grimacing is observed on palpation, no palpable masses. Extremities: No deformities, bilateral lower extremity pedal edema 2+ up to upper thighs, with scrotal swelling, large red circular ulcers present in right calf, presence of femoral CVC in right groin region, pulses are present, blisters present on left forearm. Left lower extremity superficial ulcer on the lateral aspect of the leg. Right lower extremity 2 superficial ulcers 1 on the medial leg and 1 on the dorsal foot. Skin: Saccrococcyx 2.5x1.2x0.5cm, moist, open, full-thickness wound with moist red granulation tissue in the wound base and a mix of pale pink collagen scar tissue and dark brown adhered eschar material on the periwound area, there is minimal odor., darkened eschar lesions on his toes Neurological: hypoactive Gag and cough noted, patient blinks but does not track movements with his eyes, does not respond to verbal commands, no response to painful stimulus. Penile ulcer noted under the foreskin laboratory and microbiology Laboratory Tests 10/19/25 03:20 Test 10/19/25 03:20 Range/Units Serum Glucose 140 H 74-106 mg/dL Microbiology Date/Time Source Procedure Growth Status 10/08/25 22:28 Urine - Rosales Port Urine Culture - Final Complete 10/06/25 13:00 Sacrum Gram Stain - Final Resulted 10/06/25 13:00 Wound Culture - Preliminary Enterobacter cloacae Enterococcus faecalis - VRE Resulted 10/02/25 17:33 Blood Blood Culture - Final NO GROWTH AFTER 5 DAYS OF INCUBATION. Complete Labs and/or images reviewed: Labs reviewed by me, Image(s) reviewed by me Problem List/Assessment/Plan Problem List/Assessment/Plan Neurology # Sedated - Precedex at 0.3 mg # Encephalomalacia - Head CT 09/26/2025: Bilateral cerebral encephalomalacia # Global cerebral volume loss - Head CT 09/26/2025: Mild global cerebral volume loss # epilepsy - Oxycarbazepine - held # Concern for anoxic brain injury - Head CT 10/06/25: No acute intracranial hemorrhage or mass effect.Age indeterminate small infarct involving the right cerebellum, favored to be chronic. If there is clinical concern for acute infarct, recommend MRI for further evaluation.Chronic bilateral parietal and occipital lobe infarcts. - Despite being off sedation for 48 hours, patient still has no meaningful neurologic response. . Neurology has been consulted - unable to obtain MRI as per [email or web address] pacemaker leads are older generation and not MRI compatible. #History of CVA in 201210/10/25 CT head negative for acute process. - Neurology consult - Off sedation since 10/08 Cardiovascular #S/p Cardiac arrest with ROSC - 09/26/2025: Witnessed at dialysis center, bystanders started CPR and AED use, ROSC achieved before EMS arrived - 10/01/2025: Rhythm: Asystole, ROSC achieved after 7 minutes of CPR - 10/01/2025: Rhythm: Asystole, ROSC achieved after 11 minutes of CPR - 10/01/2025: Rhythm: Asystole, ROSC achieved after 2 minutes of CPR # Cardiogenic shock # Lactic acidosis likely due to above - wound culture growing Enterobacter cloacae MDR, VRE Enterococcus faecalis. - Levophed 2 mcg, now discontinued - Epinephrine has been discontinued # Acute on chronic HFrEF - BNP 1232.11 - Echocardiogram 08/22/2025: LVEF of 20-25%, Severe LV dysfunction, moderate mitral regurgitation - Per cardiology: Diuretics with lasix, aspirin, nitroglycerin SL - Lasix 40 mg IV daily - S/p pacemaker placement # Bilateral pleural effusion - Chest xray 10/12/2025: No significant interval change. #Hypertension - Amlodipine held by nephrology Respiratory # Acute hypoxic hypercapnic respiratory failure # pulmonary edema # Ventilator -Intubated (10/01/2025) -On [facility] vent : VCAC Mode RR 18 TV 450ml, PEEP Of 8 and FiO2 of 4045% - 8.0 endotracheal tube, 24 at the lip - Cutlures from sputum: Normal orophargyngeal elpidio GI # Peptic ulcer prophylaxis -Pantoprazole 40 mg IV daily # Rosales catheter draining clear urine placed on 10/09/2025 Nephrology # ESRD on hemodialysis - Received dialysis without complication and without pressor support on 10/13/2025 with 2 L removed - Strict Is and Os # Severe diabetic nephropathy #Acute metabolic alkalosis # Secondary hyperparathyroidism # Hypocalcemia - Monitor - Calcitrol # Hyperphosphatemia - Phosphate binders Infectious disease # 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 # Possible cellulitis secondary to lower extremity ulcers, , leg wound growing E coli # Complicated UTI growing MDR cloacae, VRE - IV linezolid, now discontinued - started patient on IV gentamicin per pharmacy, now discontinued - consulted infectious disease; per ID to discontinue systemic antibiotics likely colonization #Septic vs Cardiogenic shock - blood Cultures: Negative at 72 hours - Ceftriaxone 1 g IV daily, now discontinue Hem/onc #Thrombocytopenia, improved - Monitor #Normocytic anemia, likely due to chronic disease - Monitor Hand H - Per nephrology: Epogen 68480 SQ 3 weekly as tolerated Endocrine #Type 2 diabetes mellitus - SSI -Accu cheks MSK # Gout - Allopurinol 300 mg PO daily Skin # Circular ulcers present on right leg, present on admission # Possible Sacral Ulcer stage 2, present on admission - Wound culture: VRE - Meropenem 500 mg daily, discontinued - Linezolid 600 mg IV q 12 hours , now discontinued Marijuana use DVT prophylaxis: SCD PUD prophylaxis: Pantoprazole 40 mg IV daily Lines -R femoral central line: 10/01/2025, discontinued on 10/15/2025. - thigh PICC line placed on 10/15/2025 -Rosales catheter 10/09/2025 -ET tube: 10/01/2025 - Tunneled catheter in right pectoral region Patient has right femoral line given the presence of right tunnel catheter in right pectoral region and pacemaker in left field. We will give the patient more time for sedation to wear off for accurate neurological evaluation. [facility] Fentanyl Discontinued Propofol: dc'ed Bicarbonate drip discontinued Levophed discontinued Critical care time 82 minutes excluding procedure. Code status discussed greater than 20 minutes: DNR Detailed conversation held with patient's sister at bedside where prognosis was explained, per patient's sister would like to wait until Sunday before deciding for compassionate extubation versus tracheostomy. Plan discussed with Dr. Bautista Plan discussed with: Other (Brother, JOYCE Palma) Dietary Evaluation Review Comments: Nutrition Recommendation: 1) CCHO 75gm + renal standard diet 2) Pro-stat 1 pk BID 3) Nephro-nellie 1 tab daily 4) Monitor PO intake, lab values, weight trend, and I/O Expected Outcomes/Goals: Wound to improve Intake to meet >75% estimated needs FU 3-5 days Visit Coding STANDARD RES Billing Provider: ANANT BAUTISTA MD Date of Service if different f: Oct 19, 2025 Common Visit Codes: 72452-[id number] CARE 30-74 MIN, 14427-[id number] CARE-EACH +30MIN YOBANI GOETZ Oct 19, 2025 16:37 ANANT BAUTISTA MD Oct 20, 2025 16:24
[2025-10-19] MEDS: SODIUM CHL 0.9% 1000 ML BAG XX ONE (18:01)
[2025-10-19] MEDS: EPOETIN ALFA-EPBX 10,000 UNIT/1ML VIAL SC ONE (21:00)
--- NOTE | 2025-10-19 23:13 | DVHPN2 ---
Progress Note - Dictate Date Seen: Oct 19, 2025 Has the PT tested + for MRSA If YES, has PT been informed?: No Medical Necessity Reason Pt with a Central, PICC or Fol: Yes The following are medically ne: Central Line, Rosales Catheter Reason for rosales catheter: Strict I&O Subjective Patient was seen and evaluated in follow up in the ICU. Patient is intubated and sedated on ventilator. 30% FiO2. Patient received dialysis today. Awaiting sister who is the decision maker to make the final decision on compassionate extubation versus tracheostomy. HGB 8.4, HCT 25.8, BUN 52, Gerentological Physiotherapist 5.32. Chest x-ray showing stable cardiomegaly and pulmonary vascular congestion. vital signs Vital Sign Date Time Temp Pulse Resp B/P (MAP) Pulse Ox O2 Delivery O2 Flow Rate FiO2 10/19/25 22:20 95 21 138/71 (93) 99 30 10/19/25 18:00 Mechanical Ventilator+ 10/19/25 16:00 97.7 97.7 Total Intake and Output 10/18/25 10/18/25 10/19/25 15:00 23:00 07:00 Intake Total 530 ml 477 ml Output Total 140 ml Balance 530 ml 337 ml medications Current Medications Medications Dose Ordered Sig/Esteban Route Start Time Stop Time Status Last Admin Dose Admin Diagnostic Test (Pha) 1 strip ACHS 09/26/25 22:00 10/19/25 21:57 1 STRIP Insulin Human Regular ACHS SC 09/26/25 22:00 10/19/25 12:29 2 UNITS Dextrose 50 ml UD PRN IV 09/26/25 21:15 Amino Acid Protein 30 ml BID PO 09/30/25 22:00 10/19/25 22:01 30 ML Multivit/Ca Carb/ B Cmplx/FA/Prenat 1 tab DAILY PO 09/30/25 11:12 10/19/25 10:16 1 TAB Epinephrine HCl 250 ml @ 7.5 mls/hr Q24H IV 10/01/25 15:15 10/01/25 15:39 15 MLS/HR Norepinephrine Bitartrate 250 ml @ 3.75 mls/hr Q24H IV 10/01/25 15:15 10/06/25 09:44 3.75 MLS/HR Albumin Human 100 ml @ 100 mls/hr ANABELLA PRN IV 10/03/25 09:45 10/07/25 17:42 100 MLS/HR Aspirin 81 mg DAILY NG 10/05/25 10:00 10/19/25 10:16 81 MG Enteral Nutritional Formula 1,000 ml 40ML/HR GT 10/04/25 18:30 10/16/25 06:36 1,000 ML Famotidine 10 mg HS IV 10/07/25 22:00 10/19/25 21:57 10 MG Albuterol 2.5 mg Q6HR NEB 10/08/25 12:00 10/19/25 18:12 2.5 MG Ipratropium Cascade 0.5 mg Q6HR NEB 10/08/25 12:00 10/19/25 18:12 0.5 MG Artificial Tears 2 drop Q2HP PRN EACHEYE 10/08/25 14:30 Levetiracetam 100 ml @ 400 mls/hr BID IV 10/11/25 22:00 10/19/25 21:57 400 MLS/HR Lorazepam 1 mg Q5MINP PRN IV 10/11/25 21:00 Epoetin Mohan-epbx 10,000 unit MWF@2100 SC 10/12/25 21:00 10/19/25 21:57 10,000 UNIT Gentamicin Sulfate 0 ml @ 0 mls/hr PER PHARMACY IV 10/12/25 18:15 Cancel Sodium Chloride 10 ml QSHIFT@10,22 IV 10/15/25 22:00 10/19/25 21:57 10 ML Calcium Acetate 667 mg TIDWMEALS PO 10/18/25 18:00 10/19/25 12:28 667 MG Hydralazine HCl 10 mg Q6HP PRN IV 10/18/25 14:45 objective GENERAL: Ill appearing, intubated on ventilator. Morbidly obese. EYES: PERRL, EOMI. Anicteric. HENT: Moist mucous membranes. LUNGS: Decreased breath sounds. CARDIOVASCULAR: Regular rate and rhythm. ABDOMEN: Soft, non-tender and non-distended. EXTREMITIES: No edema. SKIN: Warm, dry. laboratory and microbiology Laboratory Tests 10/19/25 03:20 Test 10/19/25 03:20 Range/Units Serum Glucose 140 H 74-106 mg/dL Problem List Acute syncopal episode. Status post cardiac arrest x3. ESRD on hemodialysis. Hypertension. Peripheral neuropathy. Severe peripheral artery disease. Acute on chronic congestive heart failure exacerbation. History of CVA. Anemia of chronic disease. Diabetes with severe diabetic nephropathy. History of pacemaker. Morbidly obese. Decompensated heart failure with ejection fraction less than 25%. Encephalomalacia. Hyperphosphatemia. Hyperparathyroidism. Assessment/Plan Continued all current supportive medical care. Aspirin. Nebulized breathing treatments. Vasopressors for hemodynamic support. Additional plan as per the hospital course. Critical care time of 45 minutes provided to include time spent evaluation of patient at bedside, when appropriate patient/family education for diagnosis, treatment plan, review of pertinent medical information and discussion of care with specialty providers and PCP. Mechanical ventilator parameters, treatment and adjustments have personally been reviewed by me and treatment plan by scientist electronics has also been reviewed. Dietary Evaluation Review Comments: Nutrition Recommendation: 1) CCHO 75gm + renal standard diet 2) Pro-stat 1 pk BID 3) Nephro-nellie 1 tab daily 4) Monitor PO intake, lab values, weight trend, and I/O Expected Outcomes/Goals: Wound to improve Intake to meet >75% estimated needs FU 3-5 days Plan discussed with: Other MATTHEW CIFUENTES MD Oct 19, 2025 23:13
--- NOTE | 2025-10-19 23:58 | DVHPN2 ---
Consult Progress Note Date Seen: Oct 19, 2025 Subjective Patient reports: Feels better (no fever or chills) Objective vital signs Vital Sign Date Time Temp Pulse Resp B/P (MAP) Pulse Ox O2 Delivery O2 Flow Rate FiO2 10/19/25 22:20 95 21 138/71 (93) 99 30 10/19/25 18:00 Mechanical Ventilator+ 10/19/25 16:00 97.7 97.7 Total Intake and Output 10/18/25 10/18/25 10/19/25 15:00 23:00 07:00 Intake Total 530 ml 477 ml Output Total 140 ml Balance 530 ml 337 ml medications Current Medications Medications Dose Ordered Sig/Esteban Route Start Time Stop Time Status Last Admin Dose Admin Diagnostic Test (Pha) 1 strip ACHS 09/26/25 22:00 10/19/25 21:57 1 STRIP Insulin Human Regular ACHS SC 09/26/25 22:00 10/19/25 12:29 2 UNITS Dextrose 50 ml UD PRN IV 09/26/25 21:15 Amino Acid Protein 30 ml BID PO 09/30/25 22:00 10/19/25 22:01 30 ML Multivit/Ca Carb/ B Cmplx/FA/Prenat 1 tab DAILY PO 09/30/25 11:12 10/19/25 10:16 1 TAB Epinephrine HCl 250 ml @ 7.5 mls/hr Q24H IV 10/01/25 15:15 10/01/25 15:39 15 MLS/HR Norepinephrine Bitartrate 250 ml @ 3.75 mls/hr Q24H IV 10/01/25 15:15 10/06/25 09:44 3.75 MLS/HR Albumin Human 100 ml @ 100 mls/hr ANABELLA PRN IV 10/03/25 09:45 10/07/25 17:42 100 MLS/HR Aspirin 81 mg DAILY NG 10/05/25 10:00 10/19/25 10:16 81 MG Enteral Nutritional Formula 1,000 ml 40ML/HR GT 10/04/25 18:30 10/16/25 06:36 1,000 ML Famotidine 10 mg HS IV 10/07/25 22:00 10/19/25 21:57 10 MG Albuterol 2.5 mg Q6HR NEB 10/08/25 12:00 10/19/25 18:12 2.5 MG Ipratropium Vevay 0.5 mg Q6HR NEB 10/08/25 12:00 10/19/25 18:12 0.5 MG Artificial Tears 2 drop Q2HP PRN EACHEYE 10/08/25 14:30 Levetiracetam 100 ml @ 400 mls/hr BID IV 10/11/25 22:00 10/19/25 21:57 400 MLS/HR Lorazepam 1 mg Q5MINP PRN IV 10/11/25 21:00 Epoetin Mohan-epbx 10,000 unit MWF@2100 SC 10/12/25 21:00 10/19/25 21:57 10,000 UNIT Gentamicin Sulfate 0 ml @ 0 mls/hr PER PHARMACY IV 10/12/25 18:15 Cancel Sodium Chloride 10 ml QSHIFT@,22 IV 10/15/25 22:00 10/19/25 21:57 10 ML Calcium Acetate 667 mg TIDWMEALS PO 10/18/25 18:00 10/19/25 12:28 667 MG Hydralazine HCl 10 mg Q6HP PRN IV 10/18/25 14:45 laboratory and microbiology Laboratory Tests 10/19/25 03:20 Test 10/19/25 03:20 Range/Units Serum Glucose 140 H 74-106 mg/dL Problem List/Assessment/Plan Problem List/Assessment/Plan ASSESSMENT AND PLAN: ID Problem List: \-- Klq-rn-qukajszj cardiac arrest at dialysis center with bystander CPR and AED shock \-- In-hospital bradycardia/asystolic arrest during hemodialysis on 10/01 with prolonged CPR and defibrillation \-- Acute hypoxic respiratory failure requiring mechanical ventilation \-- Multifocal pulmonary airspace disease and pulmonary vascular congestion (pulmonary edema/contusions) after multiple CPR events and underlying CHF \-- CKD on chronic hemodialysis (reported schedule Sunday//Sunday) \-- CHF \-- Diabetes mellitus \-- Hypertension \-- History of stroke \-- Pacemaker in situ (triple-lead on CXR) \-- Chronic thrombocytopenia (platelets progressively decreased from ~115K on admission to 60K on 10/01; most recent ~89K) \-- Sacrococcygeal pressure ulcer (full-thickness, granulating, no drainage/odor) \-- Right anterior ulcer (granulating, no drainage/edema) \-- Multiple left plantar blood-filled blisters and calluses (no deep tissue involvement) \-- Scattered skin ulcers/eschar likely related to peripheral arterial disease and pressure injuries \-- Wound culture (10/06) with VRE and carbapenem-resistant Enterobacter (CRE), currently felt to represent colonization \-- Pneumonia vs pulmonary edema/contusions treated empirically with ceftriaxone clindamycin, later meropenem \-- Current antibiotic regimen: linezolid + gentamicin per pharmacy at the time of this consult Assessment: Theo Zamora is a 59-year-old male with CKD on chronic hemodialysis (//Sun), CHF, history of stroke, diabetes, and hypertension who initially had a syncopal episode and cardiac arrest at the dialysis center. He received bystander CPR and AED shock; on EMS arrival he was awake, alert, and oriented x4 (GCS 15) but had chest wall pain. Initial evaluation showed leukocyte count 7.5, hemoglobin 9.8, platelets 115K, sodium 142, BUN 43, creatinine 6.85. CT head revealed no acute intracranial hemorrhage or mass effect but did show chronic encephalomalacia and chronic microvascular ischemic changes. CXR showed a triple-lead pacemaker and bilateral airspace opacities and pleural effusions without fractures, interpreted as pulmonary contusions and congestion. He was admitted to telemetry and subsequently developed a second arrest on 10/01 while on hemodialysis, with bradycardia progressing to asystole. He received chest compressions for 14 minutes and defibrillation at approximately 14 minutes 22 seconds. Post-code lactic acid was 5.7, improving to 1.9 after return of circulation and fluid resuscitation. Labs on 10/01: WBC 7.2, hemoglobin 8.6, platelets 60K, sodium 140, potassium 4.6, BUN 51, creatinine 7.46, glucose 100, liver enzymes unremarkable. He required intubation and mechanical ventilation (FiO2 50%, PEEP 5 initially), vasopressor support with norepinephrine (Levophed), and empiric antibiotics (ceftriaxone for pneumonia coverage; clindamycin for pneumonia and skin injuries). Respiratory cultures on 10/01 showed normal respiratory elpidio; cultures on 10/02 showed no growth to date. CXR and KUB showed colonic distension with NG tube in the stomach, and moderate multifocal bilateral pulmonary airspace disease with pulmonary vascular congestion. Vasopressor requirements gradually improved and were discontinued; he has now been off pressors for approximately 5 days. FiO2 has improved to 30% with PEEP 5, though CXR continues to show unchanging multifocal airspace disease. On exam he has multiple skin injuries, including a sacrococcygeal full-thickness ulcer (2.5 x 0.2 cm) with healthy granulation tissue and no odor or significant drainage, and a right anterior ulcer (3 x 4 cm) with healthy granulation and epithelium, no drainage, exudate, or surrounding swelling/edema. Eschar is noted on toes and ankle in areas of prior ulcers/ischemic disease. There are multiple left plantar foot blood-filled blisters and calluses; de-roofed blisters reveal intact underlying skin with no deeper edema or induration. These injuries are thought to be related to peripheral arterial disease, pressure, and thrombocytopenia-related skin fragility. Wound care is being provided. A wound culture on 10/06 grew VRE and a multidrug-resistant Enterobacter (carbapenem-resistant), sensitive only to gentamicin. Current antibiotics include linezolid and gentamicin per pharmacy. Clinically, there are no signs of cellulitis at the wound sites, no diarrhea, no reports of new drainage or local changes, and no ongoing hemodynamic instability or other signs of sepsis. The VRE and Enterobacter are felt to represent colonization of chronic wounds rather than active invasive infection at this time. Given his advanced CKD on dialysis and chronic thrombocytopenia (platelets <100K), the risks of gentamicin (nephrotoxicity/ototoxicity in a dialysis patient) and linezolid (worsening thrombocytopenia) likely outweigh the benefits in the absence of clear evidence of active systemic infection. 10/13: hemodynamically stable off antibiotics 10/14: urine culture w. rosales catheter sampled oliguric urine growing VRE and enterobacter - consistent with colonization Plan: 0. will continue to monitor patient off all antibiotics 1\. Wound colonization with VRE and CRE Enterobacter (no current evidence of invasive infection): \-- Wound culture (10/06) with VRE and carbapenem-resistant Enterobacter likely represents colonization of chronic pressure/ischemic ulcers rather than active infection based on current exam (granulation tissue, lack of drainage, lack of surrounding erythema/edema, no systemic signs of sepsis). // Likewise, urine sample from oliguric patient sampled from a rosales catheter placed at time of admission would like represent stagnant urine breeding colonized bacteria. \-- Recommend stop all systemic antibiotics at this time, including linezolid and gentamicin, given: Lack of clinical evidence for active invasive infection High risk of ototoxicity/nephrotoxicity from gentamicin in a dialysis patient Risk of worsening thrombocytopenia with linezolid in a patient with platelets <100K \-- Continue meticulous local wound care as per wound care nursing and primary team. \-- Monitor wounds closely for any new drainage, malodor, increased pain, erythema, warmth, or expansion, which would raise concern for superimposed infection. 2\. Acute hypoxic respiratory failure; multifocal airspace disease (pulmonary edema/contusions; possible pneumonia): \-- Currently mechanically ventilated with FiO2 ~30% and PEEP 5; off vasopressors for ~5 days. \-- Continue ventilator weaning as tolerated per ICU/primary team. \-- Continue aggressive volume management and diuresis in concert with hemodialysis to address pulmonary edema as seen on CXR. \-- At present, respiratory cultures show only normal elpidio or no growth; there are no clear signs of active, progressive pneumonia distinct from pulmonary edema/contusion. \-- If clinical concern for sepsis or worsening pneumonia arises (e.g., new fever, leukocytosis, rising vasopressor requirement, worsening oxygenation, hypotension, new purulent secretions): Obtain repeat sputum culture from a tracheal aspirate or tracheal wash. Reinitiate empiric therapy for hospital-acquired pneumonia. Options discussed include: Piperacillin-tazobactam (Zosyn) or cefepime for Pseudomonas and broad gram-negative coverage. At this time, VRE and carbapenem-resistant Enterobacter from the sacral wound are not felt to be significantly contributing to the pulmonary process or overall clinical picture, and targeted therapy against these organisms is not recommended absent evidence of invasive disease. 3\. Chronic kidney disease on hemodialysis; risk of electrolyte-related arrhythmia and arrest: \-- Continue scheduled hemodialysis (reported Sunday//Sunday) with careful monitoring of potassium and other electrolytes, especially in the olga- dialysis period given prior arrest during hemodialysis. \-- Avoid nephrotoxic antibiotics where possible; specifically recommend discontinuation of gentamicin as above. \-- Continue close hemodynamic and rhythm monitoring during dialysis sessions. 4\. Chronic thrombocytopenia: \-- Platelet count has declined from ~115K on admission to as low as 60K, with recent level around 89K. \-- Avoid linezolid in the setting of chronic thrombocytopenia where possible, as recommended above. \-- Monitor platelet counts serially. \-- Transfusion and further hematologic evaluation to be directed by the primary/ICU team. 5\. Skin ulcers, pressure injuries, and ischemic lesions: \-- Continue dedicated wound care with: Sacrococcygeal ulcer (2.5 x 0.2 cm, full thickness, granulating, no drainage/odor). Right anterior ulcer (3 x 4 cm, healthy granulation and epithelium, no drainage or surrounding edema). Eschar on toes and ankle at prior ulcer/ischemic sites. Multiple left plantar blood-filled blisters and calluses, with blisters de-roofed to healthy underlying tissue and no deep edema or induration. \-- Maintain offloading and repositioning strategies to avoid further pressure on sacrum and other bony prominences; defer specific dressing and positioning regimens to wound care nursing. \-- No systemic antibiotics indicated for these wounds at present, in the absence of cellulitis or systemic signs of infection. 6\. Cardiovascular status; postcardiac arrest care: \-- He has had two significant cardiac events (vuh-nm-lgqwpeus arrest at dialysis center; in-hospital asystolic arrest during hemodialysis). \-- Etiology remains unclear but may be related in part to electrolyte shifts in the setting of CKD on dialysis and underlying structural heart disease (CHF, pacemaker in place). \-- Currently off vasopressors with stable blood pressures per transcript. \-- Continue telemetry and standard postcardiac arrest care as directed by ICU/cardiology teams. \-- No additional ID-specific interventions beyond those noted. 7\. Diabetes mellitus, hypertension, CHF, history of stroke: \-- Management to be continued by primary and consulting services. \-- From an ID standpoint, these comorbidities increase risk of poor wound healing and infection; reinforce close monitoring of wounds and careful glycemic and volume control. Isolation Precautions: \-- Isolation precautions: Not specified in transcript. (Given colonization with VRE and carbapenem-resistant Enterobacter, facility policies on contact precautions should be followed as per hospital protocol; defer to hospital infection prevention team.) Plan is subject to change pending incorporation of new incoming information/diagnostics. Updates may be added as an addendum at the bottom (or top) of this note. Infectious Disease will continue to follow. Please contact the ID service with any new questions or concerns. Electronically signed by: Lc Huston MD, 10/13/2025 Authorized and Performed by: lc huston Md Total critical care time: Approximately 66 minutes Due to a high probability of clinically significant, life threatening deterioration, the patient required my highest level of preparedness to intervene emergently and I personally spent this critical care time directly and personally managing the patient. This critical care time included obtaining a history; examining the patient; pulse oximetry; ordering and review of studies; arranging urgent treatment with development of a management plan; evaluation of patient's response to treatment; frequent reassessment; and, discussions with other providers. This critical care time was performed to assess and manage the high probability of imminent, life-threatening deterioration that could result in multi-organ failure. It was exclusive of separately billable procedures and treating other patients and teaching time. Physical Exam: General: NAD Neck: Supple. No masses. HEENT: PERRL. Normal lids and conjunctiva. Moist mucous membranes. Oropharynx without lesions, exudates or excessive erythema. Normal appearance of the external aspects of the nose and ears. Heart: Regular rhythm, normal rate. No murmur. No lower extremity edema. Lungs: Normal respiratory effort. Clear to auscultation bilaterally. No wheezes. No crackles. Mechanically ventilated via endotracheal tube; most recent settings in transcript: FiO2 approximately 30%, PEEP 5 cm H?O. Abdomen: Soft. Non-tender. Non-distended. No masses or abdominal hernia. Msk: No digital cyanosis. Normal strength and tone in all 4 limbs. Chest wall tenderness and bruising present, consistent with recent CPR. Skin: Warm and dry, no rashes. Sacrococcygeal ulcer approximately 2.5 x 0.2 cm, full-thickness wound with healthy granulation tissue, no odor or significant drainage. Right anterior ulcer approximately 3 x 4 cm with healthy granulation tissue and epithelium, no drainage, exudate, or surrounding swelling/edema. Eschar noted on toes and ankle in areas of prior ulcers/ischemic disease. Multiple left plantar foot blood-filled blisters and calluses; blisters de- roofed with intact underlying skin, no signs of deeper edema or induration. Scattered skin ulceration and tissue injury consistent with peripheral arterial disease and pressure injury. Neuro: Alert. No facial droop or slurred speech. Extra-ocular movements intact. Sensation intact to soft touch in all 4 limbs. Psych: Appropriate mood. Full affect. Oriented to person, place, time, and situation. Plan discussed with: Patient Dietary Evaluation Review Comments: Nutrition Recommendation: 1) CCHO 75gm + renal standard diet 2) Pro-stat 1 pk BID 3) Nephro-nellie 1 tab daily 4) Monitor PO intake, lab values, weight trend, and I/O Expected Outcomes/Goals: Wound to improve Intake to meet >75% estimated needs FU 3-5 days LC HUSTON MD Oct 19, 2025 23:58
[2025-10-20] VITALS (105 sets, daily range): BP systolic 126–184; BP diastolic 58–122; PULSE 84–113; RESP 9–25; TEMP 98–99.5; O2SAT 88–100
[2025-10-20 04:02] LABS: Hematocrit 27.0 % (41.0-53.0); Hemoglobin 8.5 g/dL (13.5-17.5); Mean Corpuscular Hemoglobin 31.7 pg (28.0-32.0); Mean Corpuscular Volume 100.4 fL (80.0-100.0); Nucleated Red Blood Cells % 0.1 %
[2025-10-20 04:03] LABS: Chloride 100 mmol/L (98-107); Potassium 3.8 mmol/L (3.5-5.1); Sodium 141 mmol/L (136-145)
[2025-10-20 04:04] LABS: Anion Gap 9 (5-15); Calcium 9.1 mg/dL (8.7-10.4)
[2025-10-20 04:09] LABS: BUN/Creatinine Ratio 9.2 (10.0-20.0)
[2025-10-20 04:11] LABS: Blood Urea Nitrogen 40 mg/dL (9-23); Carbon Dioxide 32 mmol/L (20-31); Glucose 134 mg/dL (74-106)
--- NOTE | 2025-10-20 05:05 | DVH ---
CHEST RADIOGRAPH INDICATION: congestion TECHNIQUE: Single frontal view of the chest was obtained COMPARISON: XY CHEST PORTABLE on DOS: 10/19/25, XY CHEST PORTABLE on DOS: 10/18/25, XY CHEST PORTABLE on DOS: 10/17/25, XY CHEST PORTABLE on DOS: 10/16/25, XY CHEST PORTABLE on DOS: 10/15/25 FINDINGS: Lines and Tubes: Unchanged. Lungs: Stable appearing diffuse increased prominence of the pulmonary vasculature. Small bilateral pleural effusions. No pneumothorax. Cardiomediastinal contours: Cardiomegaly. Bones: Unremarkable IMPRESSION: 1. Stable appearing pulmonary edema. 2. Bilateral pleural effusions. 3. Cardiomegaly. 4. Lines and tubes unchanged.
[2025-10-20 10:57] LABS: Base Excess 5.1 mmol/L (-2.0-3.0)
--- NOTE | 2025-10-20 10:57 | DVHPN2 ---
Progress Note Date Seen: Oct 20, 2025 Has the PT tested + for MRSA If YES, has PT been informed?: No Medical Necessity Reason Pt with a Central, PICC or Fol: Yes The following are medically ne: Central Line, Rosales Catheter Reason for rosales catheter: Strict I&O Subjective Review of Systems: RESPIRATORY:Abnormal Other Systems: Patient seen and examined by myself today in follow-up, patient remained intubated on ventilator Objective vital signs Vital Sign Date Time Temp Pulse Resp B/P (MAP) Pulse Ox O2 Delivery O2 Flow Rate FiO2 10/20/25 06:42 99 23 155/69 (97) 99 30 10/20/25 05:50 Mechanical Ventilator+ 10/20/25 04:00 98.0 98.0 Total Intake and Output 10/19/25 10/19/25 10/20/25 15:00 23:00 07:00 Intake Total 100 ml 470 ml 430 ml Output Total 100 ml 155 ml Balance 100 ml 370 ml 275 ml medications Current Medications Medications Dose Ordered Sig/Esteban Route Start Time Stop Time Status Last Admin Dose Admin Diagnostic Test (Pha) 1 strip ACHS 09/26/25 22:00 10/20/25 06:41 1 STRIP Insulin Human Regular ACHS SC 09/26/25 22:00 10/20/25 06:43 2 UNITS Dextrose 50 ml UD PRN IV 09/26/25 21:15 Amino Acid Protein 30 ml BID PO 09/30/25 22:00 10/19/25 22:01 30 ML Multivit/Ca Carb/ B Cmplx/FA/Prenat 1 tab DAILY PO 09/30/25 11:12 10/20/25 10:18 1 TAB Epinephrine HCl 250 ml @ 7.5 mls/hr Q24H IV 10/01/25 15:15 10/01/25 15:39 15 MLS/HR Norepinephrine Bitartrate 250 ml @ 3.75 mls/hr Q24H IV 10/01/25 15:15 10/06/25 09:44 3.75 MLS/HR Albumin Human 100 ml @ 100 mls/hr ANABELLA PRN IV 10/03/25 09:45 10/07/25 17:42 100 MLS/HR Aspirin 81 mg DAILY NG 10/05/25 10:00 10/20/25 10:18 81 MG Enteral Nutritional Formula 1,000 ml 40ML/HR GT 10/04/25 18:30 10/20/25 03:28 1,000 ML Famotidine 10 mg HS IV 10/07/25 22:00 10/19/25 21:57 10 MG Albuterol 2.5 mg Q6HR NEB 10/08/25 12:00 10/20/25 06:42 2.5 MG Ipratropium [place] 0.5 mg Q6HR NEB 10/08/25 12:00 10/20/25 06:42 0.5 MG Artificial Tears 2 drop Q2HP PRN EACHEYE 10/08/25 14:30 Levetiracetam 100 ml @ 400 mls/hr BID IV 10/11/25 22:00 10/20/25 10:18 400 MLS/HR Lorazepam 1 mg Q5MINP PRN IV 10/11/25 21:00 Epoetin Mohan-epbx 10,000 unit MWF@2100 SC 10/12/25 21:00 10/19/25 21:57 10,000 UNIT Gentamicin Sulfate 0 ml @ 0 mls/hr PER PHARMACY IV 10/12/25 18:15 Cancel Sodium Chloride 10 ml QSHIFT@10,22 IV 10/15/25 22:00 10/20/25 10:18 10 ML Calcium Acetate 667 mg TIDWMEALS PO 10/18/25 18:00 10/20/25 10:43 667 MG Hydralazine HCl 10 mg Q6HP PRN IV 10/18/25 14:45 Examination: LUNGS:Abnormal, CVS:Normal, MSK:Abnormal laboratory and microbiology Laboratory Tests 10/20/25 03:15 Test 10/20/25 03:15 Range/Units Serum Glucose 134 H 74-106 mg/dL Microbiology Date/Time Source Procedure Growth Status 10/08/25 22:28 Urine - Rosales Port Urine Culture - Final Complete 10/06/25 13:00 Sacrum Gram Stain - Final Resulted 10/06/25 13:00 Wound Culture - Preliminary Enterobacter cloacae Enterococcus faecalis - VRE Resulted 10/02/25 17:33 Blood Blood Culture - Final NO GROWTH AFTER 5 DAYS OF INCUBATION. Complete Problem List/Assessment/Plan Problem List/Assessment/Plan End-stage renal disease on hemodialysis Acute respiratory failure, patient intubated on ventilator Status post cardiac arrest x3 Decompensated heart failure with ejection fraction less than 25% Diabetes with severe diabetic nephropathy Severe peripheral artery disease Anemia of chronic kidney disease Encephalomalacia Hyperphosphatemia Hyperparathyroidism, secondary Recommendations Hemodialysis tomorrow Epogen 74707 subQ 3 times weekly Albumin 25% IV with hemodialysis Strict I&Os Renal diet IV pressors for blood pressure support phosphate binders Calcitriol Discontinue amlodipine We will continue to follow Plan discussed with: Other (Nurse) Dietary Evaluation Review Comments: Nutrition Recommendation: 1) CCHO 75gm + renal standard diet 2) Pro-stat 1 pk BID 3) Nephro-nellie 1 tab daily 4) Monitor PO intake, lab values, weight trend, and I/O Expected Outcomes/Goals: Wound to improve Intake to meet >75% estimated needs FU 3-5 days AKASH BARRAZA MD Oct 20, 2025 10:57
--- NOTE | 2025-10-20 17:52 | DVHPN2 ---
Progress Note - Dictate Date Seen: Oct 20, 2025 Has the PT tested + for MRSA If YES, has PT been informed?: No Medical Necessity Reason Pt with a Central, PICC or Fol: Yes The following are medically ne: Central Line, Rosales Catheter Reason for rosales catheter: Strict I&O Subjective Patient was seen and evaluated in follow up in the ICU. Patient is intubated and sedated on ventilator. 30% FiO2. Patient's sister/decision maker has not yet decided on either proceeding with compassionate extubation or tracheostomy placement. HGB 8.5, HCT 27, CO2 32, BUN 40, GRAIN OILSEED OR PASTURE GROWER 4.33. Chest x-ray shows stable appearing pulmonary edema, bilateral pleural effusions and cardiomegaly. vital signs Vital Sign Date Time Temp Pulse Resp B/P (MAP) Pulse Ox O2 Delivery O2 Flow Rate FiO2 10/20/25 10:45 101 10 160/87 (111) 100 10/20/25 10:05 30 10/20/25 05:50 Mechanical Ventilator+ 10/20/25 04:00 98.0 98.0 Total Intake and Output 10/19/25 10/19/25 10/20/25 15:00 23:00 07:00 Intake Total 100 ml 470 ml 430 ml Output Total 100 ml 155 ml Balance 100 ml 370 ml 275 ml medications Current Medications Medications Dose Ordered Sig/Esteban Route Start Time Stop Time Status Last Admin Dose Admin Diagnostic Test (Pha) 1 strip ACHS 09/26/25 22:00 10/20/25 06:41 1 STRIP Insulin Human Regular ACHS SC 09/26/25 22:00 10/20/25 06:43 2 UNITS Dextrose 50 ml UD PRN IV 09/26/25 21:15 Amino Acid Protein 30 ml BID PO 09/30/25 22:00 10/19/25 22:01 30 ML Multivit/Ca Carb/ B Cmplx/FA/Prenat 1 tab DAILY PO 09/30/25 11:12 10/20/25 10:18 1 TAB Epinephrine HCl 250 ml @ 7.5 mls/hr Q24H IV 10/01/25 15:15 10/01/25 15:39 15 MLS/HR Norepinephrine Bitartrate 250 ml @ 3.75 mls/hr Q24H IV 10/01/25 15:15 10/06/25 09:44 3.75 MLS/HR Albumin Human 100 ml @ 100 mls/hr ANABELLA PRN IV 10/03/25 09:45 10/07/25 17:42 100 MLS/HR Aspirin 81 mg DAILY NG 10/05/25 10:00 10/20/25 10:18 81 MG Enteral Nutritional Formula 1,000 ml 40ML/HR GT 10/04/25 18:30 10/20/25 03:28 1,000 ML Famotidine 10 mg HS IV 10/07/25 22:00 10/19/25 21:57 10 MG Albuterol 2.5 mg Q6HR NEB 10/08/25 12:00 10/20/25 11:21 2.5 MG Ipratropium [place] 0.5 mg Q6HR NEB 10/08/25 12:00 10/20/25 11:21 0.5 MG Artificial Tears 2 drop Q2HP PRN EACHEYE 10/08/25 14:30 Levetiracetam 100 ml @ 400 mls/hr BID IV 10/11/25 22:00 10/20/25 10:18 400 MLS/HR Lorazepam 1 mg Q5MINP PRN IV 10/11/25 21:00 Epoetin Mohan-epbx 10,000 unit MWF@2100 SC 10/12/25 21:00 10/19/25 21:57 10,000 UNIT Gentamicin Sulfate 0 ml @ 0 mls/hr PER PHARMACY IV 10/12/25 18:15 Cancel Sodium Chloride 10 ml QSHIFT@10,22 IV 10/15/25 22:00 10/20/25 10:18 10 ML Calcium Acetate 667 mg TIDWMEALS PO 10/18/25 18:00 10/20/25 10:43 667 MG Hydralazine HCl 10 mg Q6HP PRN IV 10/18/25 14:45 objective GENERAL: Ill appearing, intubated on ventilator. Morbidly obese. EYES: PERRL, EOMI. Anicteric. HENT: Moist mucous membranes. LUNGS: Decreased breath sounds. CARDIOVASCULAR: Regular rate and rhythm. ABDOMEN: Soft, non-tender and non-distended. EXTREMITIES: No edema. SKIN: Warm, dry. laboratory and microbiology Laboratory Tests 10/20/25 03:15 Test 10/20/25 03:15 Range/Units Serum Glucose 134 H 74-106 mg/dL Problem List Acute syncopal episode. Status post cardiac arrest x3. ESRD on hemodialysis. Hypertension. Peripheral neuropathy. Severe peripheral artery disease. Acute on chronic congestive heart failure exacerbation. History of CVA. Anemia of chronic disease. Diabetes with severe diabetic nephropathy. History of pacemaker. Morbidly obese. Decompensated heart failure with ejection fraction less than 25%. Encephalomalacia. Hyperphosphatemia. Hyperparathyroidism. Assessment/Plan Continued all current supportive medical care. Aspirin. IV Hydralazine for SBP >180. Vasopressors for hemodynamic support. Additional plan as per the hospital course. Critical care time of 45 minutes provided to include time spent evaluation of patient at bedside, when appropriate patient/family education for diagnosis, treatment plan, review of pertinent medical information and discussion of care with specialty providers and PCP. Mechanical ventilator parameters, treatment and adjustments have personally been reviewed by me and treatment plan by hospital account manager has also been reviewed. Dietary Evaluation Review Comments: Nutrition Recommendation: 1) CCHO 75gm + renal standard diet 2) Pro-stat 1 pk BID 3) Nephro-nellie 1 tab daily 4) Monitor PO intake, lab values, weight trend, and I/O Expected Outcomes/Goals: Wound to improve Intake to meet >75% estimated needs FU 3-5 days Plan discussed with: Other MATTHEW CIFUENTES MD Oct 20, 2025 12:50
[2025-10-20] MEDS: SODIUM CHL 0.9% 1000 ML BAG XX ONE (18:15)
--- NOTE | 2025-10-20 18:17 | DVHPNRES ---
Progress Note Date Seen: Oct 20, 2025 Resident Creating Document: YOBANI GOETZ RESIDENT Has the PT tested + for MRSA If YES, has PT been informed?: No Medical Necessity Reason Pt with a Central, PICC or Fol: Yes The following are medically ne: Central Line, Rosales Catheter Reason for rosales catheter: Strict I&O Subjective Review of Systems Mr. Zamora is a 59 year old male with PMHx of ESRD with recent initiation of dialysis approximately 2 weeks ago , HFrEF with pacemaker placement, CVA in 2012, type 2 diabetes mellitus, gout, and hypertension, who presented to [facility] due to witnessed cardiopulmonary arrest during dialysis on 09/26/2025. At the time of evaluation the patient is sedated and intubated, majority of history is taken from previous medical record and his sister, Claudia Burnett. Per record, the patient became unresponsive during hemodialysis, CPR was intiated by bystanders and AED was used, by the time EMS arrived on scene the patient was found A&Ox4, GCS15, and moaning in pain. On evaluation in the ED, patient was complaining of dyspnea and chest wall pain. He was afebrile, normocardic with pacedc rhythm, hypertensive, and saturating adequately on room air. EKG showed paced rhythm with widened QTc. Initial labs are significant for normocytic anemia, hypokalemia, creatinine 6.85, BUN 43, and BNP 1232.11. Troponins were negative. UA without alteration. Chest xray significant for lungs with bilateral patchy airspace opacities, prominent pulmonary vasculature, with small bilateral pleural effusions. Head CT shows bilateral cerebral encephalomalacia and mild global cerebral volume loss without intracranial hemorrhage or mass effect. The patient was started on IV diuresis and admitted for further work up and managment. He was evaluated by cardiology who continued diuresis. The patient was evaluated by nephrology who state that given diminished cardiac function likely patient cannot tolerate large ultrafiltration goals. He was scheduled for further dialysis, having undergone dialysis on 09/28/2025 without issue. He was receiving dialysis on 10/01/2025 when he became bradycardic and went into asystole. Code blue was called and CPR was intiated with ROSC achieved after 7 minutes of CPR. He was transferred to the ICU and he entered asystole two more times in a span of 15 minutes a with ROSC achieved after 11 minutes of CPR and at 2 minutes of CPR respectively. He was intubated and started on pressors, sedation, antibiotics, and bicarbonate drip. On initial evaluation in the ICU, the patient is intubated, sedated, and mechanically ventilated, on levophed 2 mcg, pupils are reactive, no response to painful stimulus, cough and gag are present. Labs are significant for normocytic anemia, worsening thrombocytopenia, and worsening renal function. ABG is significant for metabolic alkalosis. Most recent chest xray shows worsening congestion. Past medical history: ESRD on dialysis, HFrEF, CVA in 2012, Type 2 diabetes mellitus, and hypertension Past surgical history: Pacemaker placement and replacement, Right femoral fracture repair Allergies: Denies Social: Per sister, the patient currently smokes marijuana, denies other drug use. Patient currently lives with his mother and his brother. Home meds: Famotidine, Allopurinol, pregabalin, furosemide, sevelamer, metoprolol, and lokelma 10/20/2025: Patient seen and examined at bedside, family meeting held with sister, decision to terminal wean with hospice in board and care placement. Per family, patient remains DNR/DNI, no chest compressions, no pressors. Objective vital signs Vital Sign Date Time Temp Pulse Resp B/P (MAP) Pulse Ox O2 Delivery O2 Flow Rate FiO2 10/20/25 16:14 96 21 147/82 (103) 94 30 10/20/25 05:50 Mechanical Ventilator+ 10/20/25 04:00 98.0 98.0 Total Intake and Output 10/19/25 10/19/25 10/20/25 15:00 23:00 07:00 Intake Total 100 ml 470 ml 430 ml Output Total 100 ml 155 ml Balance 100 ml 370 ml 275 ml medications Current Medications Medications Dose Ordered Sig/Esteban Route Start Time Stop Time Status Last Admin Dose Admin Diagnostic Test (Pha) 1 strip ACHS 09/26/25 22:00 10/20/25 06:41 1 STRIP Insulin Human Regular ACHS SC 09/26/25 22:00 10/20/25 06:43 2 UNITS Dextrose 50 ml UD PRN IV 09/26/25 21:15 Amino Acid Protein 30 ml BID PO 09/30/25 22:00 10/19/25 22:01 30 ML Multivit/Ca Carb/ B Cmplx/FA/Prenat 1 tab DAILY PO 09/30/25 11:12 10/20/25 10:18 1 TAB Epinephrine HCl 250 ml @ 7.5 mls/hr Q24H IV 10/01/25 15:15 10/01/25 15:39 15 MLS/HR Norepinephrine Bitartrate 250 ml @ 3.75 mls/hr Q24H IV 10/01/25 15:15 10/06/25 09:44 3.75 MLS/HR Albumin Human 100 ml @ 100 mls/hr ANABELLA PRN IV 10/03/25 09:45 10/07/25 17:42 100 MLS/HR Aspirin 81 mg DAILY NG 10/05/25 10:00 10/20/25 10:18 81 MG Enteral Nutritional Formula 1,000 ml 40ML/HR GT 10/04/25 18:30 10/20/25 03:28 1,000 ML Famotidine 10 mg HS IV 10/07/25 22:00 10/19/25 21:57 10 MG Albuterol 2.5 mg Q6HR NEB 10/08/25 12:00 10/20/25 18:13 2.5 MG Ipratropium [place] 0.5 mg Q6HR NEB 10/08/25 12:00 10/20/25 18:13 0.5 MG Artificial Tears 2 drop Q2HP PRN EACHEYE 10/08/25 14:30 Levetiracetam 100 ml @ 400 mls/hr BID IV 10/11/25 22:00 10/20/25 10:18 400 MLS/HR Lorazepam 1 mg Q5MINP PRN IV 10/11/25 21:00 Epoetin Mohan-epbx 10,000 unit MWF@2100 [place] 10/12/25 21:00 Hold 10/19/25 21:57 10,000 UNIT Gentamicin Sulfate 0 ml @ 0 mls/hr PER PHARMACY IV 10/12/25 18:15 Cancel Sodium Chloride 10 ml QSHIFT@10,22 IV 10/15/25 22:00 10/20/25 10:18 10 ML Calcium Acetate 667 mg TIDWMEALS PO 10/18/25 18:00 10/20/25 10:43 667 MG Hydralazine HCl 10 mg Q6HP PRN IV 10/18/25 14:45 Examination General: Patient is intubated, mechanically ventilated, non-reactive to painful stimulus HEENT: Normocephalic, atraumatic, 3 mm very sluggish, no EOM, eyes open and moving, unable to track objects, ET tube in place, orogastric tube in palce Respiratory/pulmonary: Bilateral chest expansion, decreased breath sounds bilaterally, wheezing in bilateral upper lobes Cardiovascular: Normal RRR Abdomen: Obese, Abdomen nondistended, normal bowel sounds no grimacing is observed on palpation, no palpable masses. Extremities: No deformities, bilateral lower extremity pedal edema 2+ up to upper thighs, with scrotal swelling, large red circular ulcers present in right calf, presence of femoral CVC in right groin region, pulses are present, blisters present on left forearm. Left lower extremity superficial ulcer on the lateral aspect of the leg. Right lower extremity 2 superficial ulcers 1 on the medial leg and 1 on the dorsal foot. Skin: Saccrococcyx 2.5x1.2x0.5cm, moist, open, full-thickness wound with moist red granulation tissue in the wound base and a mix of pale pink collagen scar tissue and dark brown adhered eschar material on the periwound area, there is minimal odor., darkened eschar lesions on his toes Neurological: hypoactive Gag and cough noted, patient blinks but does not track movements with his eyes, does not respond to verbal commands, no response to painful stimulus. Penile ulcer noted under the foreskin laboratory and microbiology Laboratory Tests 10/20/25 03:15 Test 10/20/25 03:15 Range/Units Serum Glucose 134 H 74-106 mg/dL Microbiology Date/Time Source Procedure Growth Status 10/08/25 22:28 Urine - Rosales [place] Urine Culture - Final Complete 10/06/25 13:00 Sacrum Gram Stain - Final Resulted 10/06/25 13:00 Wound Culture - Preliminary Enterobacter cloacae Enterococcus faecalis - VRE Resulted 10/02/25 17:33 Blood Blood Culture - Final NO GROWTH AFTER 5 DAYS OF INCUBATION. Complete Labs and/or images reviewed: Labs reviewed by me, Image(s) reviewed by me Problem List/Assessment/Plan Problem List/Assessment/Plan Neurology # Sedated - Precedex at 0.3 mg # Encephalomalacia - Head CT 09/26/2025: Bilateral cerebral encephalomalacia # Global cerebral volume loss - Head CT 09/26/2025: Mild global cerebral volume loss # epilepsy - Oxycarbazepine - held # Concern for anoxic brain injury - Head CT 10/06/25: No acute intracranial hemorrhage or mass effect.Age indeterminate small infarct involving the right cerebellum, favored to be chronic. If there is clinical concern for acute infarct, recommend MRI for further evaluation.Chronic bilateral parietal and occipital lobe infarcts. - Despite being off sedation for 48 hours, patient still has no meaningful neurologic response. . Neurology has been consulted - unable to obtain MRI as per [employer] pacemaker leads are older generation and not MRI compatible. #History of CVA in 201210/10/25 CT head negative for acute process. - Neurology consult - Off sedation since 10/08 Cardiovascular #S/p Cardiac arrest with ROSC - 09/26/2025: Witnessed at dialysis center, bystanders started CPR and AED use, ROSC achieved before EMS arrived - 10/01/2025: Rhythm: Asystole, ROSC achieved after 7 minutes of CPR - 10/01/2025: Rhythm: Asystole, ROSC achieved after 11 minutes of CPR - 10/01/2025: Rhythm: Asystole, ROSC achieved after 2 minutes of CPR # Cardiogenic shock # Lactic acidosis likely due to above - wound culture growing Enterobacter cloacae MDR, VRE Enterococcus faecalis. - Levophed 2 mcg, now discontinued - Epinephrine has been discontinued # Acute on chronic HFrEF - BNP 1232.11 - Echocardiogram 08/22/2025: LVEF of 20-25%, Severe LV dysfunction, moderate mitral regurgitation - Per cardiology: Diuretics with lasix, aspirin, nitroglycerin SL - Lasix 40 mg IV daily - S/p pacemaker placement # Bilateral pleural effusion - Chest xray 10/12/2025: No significant interval change. #Hypertension - Amlodipine held by nephrology Respiratory # Acute hypoxic hypercapnic respiratory failure # pulmonary edema # Ventilator -Intubated (10/01/2025) -[facility] : VCAC Mode RR 18 TV 450ml, PEEP Of 8 and FiO2 of 4045% - 8.0 endotracheal tube, 24 at the lip - Cutlures from sputum: Normal orophargyngeal elpidio GI # Peptic ulcer prophylaxis -Pantoprazole 40 mg IV daily # Rosales catheter draining clear urine placed on 10/09/2025 Nephrology # ESRD on hemodialysis - Received dialysis without complication and without pressor support on 10/13/2025 with 2 L removed - Strict Is and Os # Severe diabetic nephropathy #Acute metabolic alkalosis # Secondary hyperparathyroidism # Hypocalcemia - Monitor - Calcitrol # Hyperphosphatemia - Phosphate binders Infectious disease # 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 # Possible cellulitis secondary to lower extremity ulcers, , leg wound growing E coli # Complicated UTI growing MDR cloacae, VRE - IV linezolid, now discontinued - started patient on IV gentamicin per pharmacy, now discontinued - consulted infectious disease; per ID to discontinue systemic antibiotics likely colonization #Septic vs Cardiogenic shock - blood Cultures: Negative at 72 hours - Ceftriaxone 1 g IV daily, now discontinue Hem/onc #Thrombocytopenia, improved - Monitor #Normocytic anemia, likely due to chronic disease - Monitor Hand H - Per nephrology: Epogen 45940 SQ 3 weekly as tolerated Endocrine #Type 2 diabetes mellitus - SSI -Accu cheks MSK # Gout - Allopurinol 300 mg PO daily Skin # Circular ulcers present on right leg, present on admission # Possible Sacral Ulcer stage 2, present on admission - Wound culture: VRE - Meropenem 500 mg daily, discontinued - Linezolid 600 mg IV q 12 hours , now discontinued Marijuana use DVT prophylaxis: SCD PUD prophylaxis: Pantoprazole 40 mg IV daily Lines -R femoral central line: 10/01/2025, discontinued on 10/15/2025. - thigh PICC line placed on 10/15/2025 -Rosales catheter 10/09/2025 -ET tube: 10/01/2025 - Tunneled catheter in right pectoral region Patient has right femoral line given the presence of right tunnel catheter in right pectoral region and pacemaker in left field. We will give the patient more time for sedation to wear off for accurate neurological evaluation. Drips [facility] Fentanyl Discontinued Propofol: dc'ed Bicarbonate drip discontinued Levophed discontinued Critical care time 82 minutes including long dw sister regards plan of care and excluding procedure. Code status discussed greater than 20 minutes: DNR Detailed conversation held with patient's sister at bedside where prognosis was explained, per patient's sister would like to wait until Sunday before deciding for compassionate extubation versus tracheostomy. Plan discussed with Dr. Bautista Plan discussed with: Other (RN) My Orders My Orders Orders - YOBANI GOETZ RESIDENT Procedure Category Date Status Time Respiratory Misc. RT 10/20/25 Transmitted Order 10:05 Dietary Evaluation Review Comments: Nutrition Recommendation: 1) CCHO 75gm + renal standard diet 2) Pro-stat 1 pk BID 3) Nephro-nellie 1 tab daily 4) Monitor PO intake, lab values, weight trend, and I/O Expected Outcomes/Goals: Wound to improve Intake to meet >75% estimated needs FU 3-5 days Visit Coding STANDARD RES Billing Provider: ANANT BAUTISTA MD Date of Service if different f: Oct 20, 2025 Common Visit Codes: 11011-[id number] CARE 30-74 MIN, [id number] CARE-EACH +30MIN YOBANI GOETZ Oct 20, 2025 18:17 ANANT BAUTISTA MD Oct 21, 2025 14:19
--- NOTE | 2025-10-20 20:11 | DVHPN2 ---
Progress Note - Dictate Date Seen: Oct 20, 2025 Has the PT tested + for MRSA If YES, has PT been informed?: No Medical Necessity Reason Pt with a Central, PICC or Fol: Yes The following are medically ne: Central Line, Rosales Catheter Reason for rosales catheter: Strict I&O Subjective Mr. Zamora is a right-handed gentleman with a history of hypertension, diabetes, coronary artery disease, congestive heart failure, chronic kidney failure, chronic leg edema, obesity, stroke, RLS, he was brought to the [facility] on 09/26/2025 with a chief complaint of cardiopulmonary arrest. I saw him on 01/18/2024 for seizure activity I have seen and examined the patient, I have talked to his nurse, his sister (phone). The eyes are open, and are rolling from [id number], but is nonresponsive to verbal stimuli and he does not not track Urinalysis, 10/08/2025: WBC: 1809, urine leukocyte esterase: 3+ ABG, 10/01/2025: Respiratory acidosis WBC/HB/PLT/MCV, 10/11/2025: 7/8/166/97.4 BUN/CR, 10/11/2025: 57/6.09 GFR, 10/11/2025: 10 HGB A1c, 08/17/2025: 7.4 Liver function tests, 10/11/2025: Unremarkable TG/HDL/LDL/HDL, 01/14/2024: 77/162/103/48 EEG, 10/12/2025: This is a moderately abnormal EEG with epileptiform discharges Chest x-ray, 10/01/2025: 1. Endotracheal tube tip projects at the level of the tiburcio. Recommend retraction by 2 cm. 2. Remaining Lines and tubes as above. 3. Moderate multifocal bilateral pulmonary airspace disease and pulmonary vascular congestion Chest x-ray, 10/11/2025: Endotracheal tube, enteric catheter in satisfactory position. Right tunneled central venous catheter and left chest wall pacemaker, unchanged. Chest x-ray : Lines and tubes in satisfactory position. No significant interval change. CT head, 10/10/2025: 1. No acute intracranial abnormality. 2. 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 3. Likely chronic right cerebellar infarct vital signs Vital Sign Date Time Temp Pulse Resp B/P (MAP) Pulse Ox O2 Delivery O2 Flow Rate FiO2 10/20/25 19:45 91 12 133/76 (95) 91 10/20/25 18:14 30 10/20/25 17:50 Mechanical Ventilator+ 10/20/25 12:00 98.6 98.6 Total Intake and Output 10/19/25 10/19/25 10/20/25 15:00 23:00 07:00 Intake Total 100 ml 470 ml 430 ml Output Total 100 ml 155 ml Balance 100 ml 370 ml 275 ml medications Current Medications Medications Dose Ordered Sig/Esteban Route Start Time Stop Time Status Last Admin Dose Admin Diagnostic Test (Pha) 1 strip ACHS 09/26/25 22:00 10/20/25 18:28 1 STRIP Insulin Human Regular ACHS SC 09/26/25 22:00 10/20/25 18:29 2 UNITS Dextrose 50 ml UD PRN IV 09/26/25 21:15 Amino Acid Protein 30 ml BID PO 09/30/25 22:00 10/20/25 11:00 30 ML Multivit/Ca Carb/ B Cmplx/FA/Prenat 1 tab DAILY PO 09/30/25 11:12 10/20/25 10:18 1 TAB Epinephrine HCl 250 ml @ 7.5 mls/hr Q24H IV 10/01/25 15:15 10/01/25 15:39 15 MLS/HR Norepinephrine Bitartrate 250 ml @ 3.75 mls/hr Q24H IV 10/01/25 15:15 10/06/25 09:44 3.75 MLS/HR Albumin Human 100 ml @ 100 mls/hr ANABELLA PRN IV 10/03/25 09:45 10/07/25 17:42 100 MLS/HR Aspirin 81 mg DAILY NG 10/05/25 10:00 10/20/25 10:18 81 MG Enteral Nutritional Formula 1,000 ml 40ML/HR GT 10/04/25 18:30 10/20/25 03:28 1,000 ML Famotidine 10 mg HS IV 10/07/25 22:00 10/19/25 21:57 10 MG Albuterol 2.5 mg Q6HR NEB 10/08/25 12:00 10/20/25 18:13 2.5 MG Ipratropium [place] 0.5 mg Q6HR NEB 10/08/25 12:00 10/20/25 18:13 0.5 MG Artificial Tears 2 drop Q2HP PRN EACHEYE 10/08/25 14:30 Levetiracetam 100 ml @ 400 mls/hr BID IV 10/11/25 22:00 10/20/25 10:18 400 MLS/HR Lorazepam 1 mg Q5MINP PRN IV 10/11/25 21:00 Epoetin Mohan-epbx 10,000 unit MWF@2100 SC 10/12/25 21:00 Hold 10/19/25 21:57 10,000 UNIT Gentamicin Sulfate 0 ml @ 0 mls/hr PER PHARMACY IV 10/12/25 18:15 Cancel Sodium Chloride 10 ml QSHIFT@10,22 IV 10/15/25 22:00 10/20/25 10:18 10 ML Calcium Acetate 667 mg TIDWMEALS PO 10/18/25 18:00 10/20/25 10:43 667 MG Hydralazine HCl 10 mg Q6HP PRN IV 10/18/25 14:45 objective The patient is well-nourished and well-developed with no distress. The patient is intubated Superficial skin lesions of different ages in the feet MENTAL STATUS: Subjective CRANIAL NERVES: Pupils are round and reactive. Rolling eye movement noticed. No signs of facial weakness. There are gagging or coughing reflexes SENSATION: No responses to pain stimuli. MOTOR: Normal tone in the upper and lower extremity. Normal muscle bulk. No fasciculations. Subjective REFLEXES: Deep tendon reflexes are symmetrical. No pathological reflexes. CEREBELLAR/COORDINATION: Deferred GAIT/STATION: deferred. laboratory and microbiology Laboratory Tests 10/20/25 03:15 Test 10/20/25 03:15 Range/Units Serum Glucose 134 H 74-106 mg/dL Problem List Altered mental status Hypoxic encephalopathy Metabolic encephalopathy Cardiopulmonary arrest Status post CPR Chronic multiple strokes Grand mal seizure Diabetic polyneuropathy Restless leg syndrome Wound/wound infection Assessment/Plan Monitoring Supportive treatment ICU care Follow-up lab Stabilize vitals Respiratory support/vent management IV antibiotics Aspirin 81 mg daily Keppra 500 mg b.i.d. IV for now, back to Trileptal 450 mg b.i.d. later [facility] for seizure breakthrough Wound care More recommendation per clinical course Poor prognosis for recovery, he is likely vegetative This medical document was created using an electronic medical record system with Tractive dictation system. Although this document has been carefully reviewed, there may still be some phonetic and typographical errors. These areas are purely typographical due to imperfections of the software programs, and do not reflect any compromise in the patient's medical care. Prognosis poor Dietary Evaluation Review Comments: Nutrition Recommendation: 1) CCHO 75gm + renal standard diet 2) Pro-stat 1 pk BID 3) Nephro-nellie 1 tab daily 4) Monitor PO intake, lab values, weight trend, and I/O Expected Outcomes/Goals: Wound to improve Intake to meet >75% estimated needs FU 3-5 days Plan discussed with: Other Critical Care Time(min): 35 PETER MUÑOZ MD Oct 20, 2025 20:11
[2025-10-20] MEDS: EPOETIN ALFA-EPBX 10,000 UNIT/1ML VIAL SC ONE (21:37)
[2025-10-21] VITALS (110 sets, daily range): BP systolic 109–142; BP diastolic 43–79; PULSE 63–99; RESP 8–23; TEMP 97.8–98.5; O2SAT 95–100
[2025-10-21 04:02] LABS: Nucleated Red Blood Cells % 0.0 %
[2025-10-21 04:06] LABS: Hematocrit 23.0 % (41.0-53.0); Hemoglobin 7.3 g/dL (13.5-17.5); Mean Corpuscular Hemoglobin 31.1 pg (28.0-32.0); Mean Corpuscular Volume 98.0 fL (80.0-100.0)
[2025-10-21 04:20] LABS: Alanine Aminotransferase 20 U/L (7-40); Albumin 3.2 g/dL (3.2-4.8); Anion Gap 7 (5-15); BUN/Creatinine Ratio 8.9 (10.0-20.0); Calcium 8.9 mg/dL (8.7-10.4); Chloride 104 mmol/L (98-107); Sodium 143 mmol/L (136-145); Total Protein 6.6 g/dL (5.7-8.2)
[2025-10-21 04:21] LABS: Bilirubin, Total 0.5 mg/dL (0.2-1.0)
[2025-10-21 04:25] LABS: Alkaline Phosphatase 174 U/L (46-116); Blood Urea Nitrogen 27 mg/dL (9-23); Carbon Dioxide 32 mmol/L (20-31); Glucose 135 mg/dL (74-106); Potassium 3.4 mmol/L (3.5-5.1)
[2025-10-21] MEDS: POTASSIUM CHL 20MEQ/100ML 100 ML IV ONE (05:00)
--- NOTE | 2025-10-21 05:57 | DVH ---
CHEST RADIOGRAPH INDICATION: INTUBATED TECHNIQUE: Single frontal view of the chest was obtained COMPARISON: XY CHEST PORTABLE on DOS: 10/20/25 FINDINGS: Lines and Tubes: The endotracheal tube terminates 3.5 cm above the tiburcio. Right central venous catheter terminates in the right atrium. The enteric tube courses below the left hemidiaphragm and the tip extends outside the field of view. Pacemaker with right atrial and ventricular leads. Lungs: Pulmonary interstitial prominence is unchanged. Pleura: No effusion. No pneumothorax. Cardiomediastinal contours: Stable cardiomegaly. Bones: No acute osseous abnormality. IMPRESSION: 1. Similar position of the support lines and tubes. 2. Pulmonary vascular congestion. 3. Cardiomegaly. 4. No significant interval change.
[2025-10-21] MEDS ORDERED: SODIUM CHL 0.9% 1000 ML BAG XX ONE (07:00)
[2025-10-21 07:23] LABS: Base Excess 4.3 mmol/L (-2.0-3.0)
--- NOTE | 2025-10-21 11:00 | DVHPN2 ---
Progress Note Date Seen: Oct 21, 2025 Has the PT tested + for MRSA If YES, has PT been informed?: No Medical Necessity Reason Pt with a Central, PICC or Fol: Yes The following are medically ne: Central Line, Rosales Catheter Reason for rosales catheter: Strict I&O Subjective Review of Systems: RESPIRATORY:Abnormal Other Systems: Patient seen and examined by myself today follow-up, patient remained intubated ventilator Objective vital signs Vital Sign Date Time Temp Pulse Resp B/P (MAP) Pulse Ox O2 Delivery O2 Flow Rate FiO2 10/21/25 09:32 65 18 121/64 (83) 99 30 10/21/25 08:00 Mechanical Ventilator+ 10/21/25 04:00 98.1 98.1 Total Intake and Output 10/20/25 10/20/25 10/21/25 15:00 23:00 07:00 Intake Total 100 ml 564.61 ml 434.3 ml Output Total 195 ml 60 ml Balance 100 ml 369.61 ml 374.3 ml medications Current Medications Medications Dose Ordered Sig/Esteban Route Start Time Stop Time Status Last Admin Dose Admin Diagnostic Test (Pha) 1 strip ACHS 09/26/25 22:00 10/21/25 06:22 1 STRIP Insulin Human Regular ACHS SC 09/26/25 22:00 10/21/25 06:11 2 UNITS Dextrose 50 ml UD PRN IV 09/26/25 21:15 Amino Acid Protein 30 ml BID PO 09/30/25 22:00 10/21/25 10:44 30 ML Multivit/Ca Carb/ B Cmplx/FA/Prenat 1 tab DAILY PO 09/30/25 11:12 10/21/25 10:37 1 TAB Albumin Human 100 ml @ 100 mls/hr ANABELLA PRN IV 10/03/25 09:45 10/07/25 17:42 100 MLS/HR Aspirin 81 mg DAILY NG 10/05/25 10:00 10/21/25 10:44 81 MG Enteral Nutritional Formula 1,000 ml 40ML/HR GT 10/04/25 18:30 10/20/25 23:12 1,000 ML Famotidine 10 mg HS IV 10/07/25 22:00 10/20/25 21:35 10 MG Albuterol 2.5 mg Q6HR NEB 10/08/25 12:00 10/21/25 06:09 2.5 MG Ipratropium [place] 0.5 mg Q6HR NEB 10/08/25 12:00 10/21/25 06:09 0.5 MG Artificial Tears 2 drop Q2HP PRN EACHEYE 10/08/25 14:30 Levetiracetam 100 ml @ 400 mls/hr BID IV 10/11/25 22:00 10/21/25 10:36 400 MLS/HR Lorazepam 1 mg Q5MINP PRN IV 10/11/25 21:00 Epoetin Mohan-epbx 10,000 unit MWF@2100 SC 10/12/25 21:00 Hold 10/19/25 21:57 10,000 UNIT Gentamicin Sulfate 0 ml @ 0 mls/hr PER PHARMACY IV 10/12/25 18:15 Cancel Sodium Chloride 10 ml QSHIFT@,22 IV 10/15/25 22:00 10/21/25 10:37 10 ML Calcium Acetate 667 mg TIDWMEALS PO 10/18/25 18:00 10/21/25 08:28 667 MG Hydralazine HCl 10 mg Q6HP PRN IV 10/18/25 14:45 Examination: LUNGS:Abnormal, CVS:Normal, MSK:Abnormal laboratory and microbiology Laboratory Tests 10/21/25 08:15 10/21/25 03:32 Test 10/21/25 03:32 Range/Units Serum Glucose 135 H 74-106 mg/dL Microbiology Date/Time Source Procedure Growth Status 10/08/25 22:28 Urine - Rosales [place] Urine Culture - Final Complete 10/06/25 13:00 Sacrum Gram Stain - Final Resulted 10/06/25 13:00 Wound Culture - Preliminary Enterobacter cloacae Enterococcus faecalis - VRE Resulted 10/02/25 17:33 Blood Blood Culture - Final NO GROWTH AFTER 5 DAYS OF INCUBATION. Complete Problem List/Assessment/Plan Problem List/Assessment/Plan End-stage renal disease on hemodialysis Acute respiratory failure, patient intubated on ventilator Status post cardiac arrest x3 Decompensated heart failure with ejection fraction less than 25% Diabetes with severe diabetic nephropathy Severe peripheral artery disease Anemia of chronic kidney disease Encephalomalacia Hyperphosphatemia Hyperparathyroidism, secondary Recommendations Next HD 10/23 Epogen 20046 subQ 3 times weekly Albumin 25% IV prn hemodialysis Strict I&Os Renal diet IV pressors for blood pressure support phosphate binders Calcitriol Discontinue amlodipine We will continue to follow Plan discussed with: Other (Nurse) My Orders My Orders Orders - AKASH BARRAZA MD Procedure Category Date Status Time Communication Order ORDERS 10/20/25 Transmitted 13:30 Hemodialysis Orders ORDERS 10/20/25 Transmitted 17:00 Dialysis Nursing NIXON 10/20/25 In Process Message 18:12 Document Fluid Input NIXON 10/20/25 In Process And Outpu 18:12 Dietary Evaluation Review Comments: Nutrition Recommendation: 1) CCHO 75gm + renal standard diet 2) Pro-stat 1 pk BID 3) Nephro-nellie 1 tab daily 4) Monitor PO intake, lab values, weight trend, and I/O Expected Outcomes/Goals: Wound to improve Intake to meet >75% estimated needs FU 3-5 days AKASH BARRAZA MD Oct 21, 2025 11:00
[2025-10-21] MEDS ORDERED: ACETAMINOPHEN 325 MG TAB PO PRN (13:00)
--- NOTE | 2025-10-21 13:27 | DVHPN2 ---
Progress Note - Dictate Date Seen: Oct 21, 2025 Has the PT tested + for MRSA If YES, has PT been informed?: No Medical Necessity Reason Pt with a Central, PICC or Fol: Yes The following are medically ne: Central Line, Rosales Catheter Reason for rosales catheter: Strict I&O Subjective Patient was seen and evaluated in follow up in the ICU. Patient is intubated and sedated on ventilator. 30% FiO2. Patient's eyes are open, and are rolling from [id number], but is nonresponsive to verbal stimuli and he does not not track. HGB 7.3, HCT 23, K 3.4, CO2 32, BUN 27, HEAT TREAT INSPECTOR 3.03. Chest x-ray shows pulmonary vascular congestion and cardiomegaly. vital signs Vital Sign Date Time Temp Pulse Resp B/P (MAP) Pulse Ox O2 Delivery O2 Flow Rate FiO2 10/21/25 12:30 30 10/21/25 11:24 78 18 132/64 (86) 98 10/21/25 10:30 Mechanical Ventilator+ 10/21/25 04:00 98.1 98.1 Total Intake and Output 10/20/25 10/20/25 10/21/25 15:00 23:00 07:00 Intake Total 100 ml 564.61 ml 434.3 ml Output Total 195 ml 60 ml Balance 100 ml 369.61 ml 374.3 ml medications Current Medications Medications Dose Ordered Sig/Esteban Route Start Time Stop Time Status Last Admin Dose Admin Diagnostic Test (Pha) 1 strip ACHS 09/26/25 22:00 10/21/25 12:29 1 STRIP Insulin Human Regular ACHS SC 09/26/25 22:00 10/21/25 06:11 2 UNITS Dextrose 50 ml UD PRN IV 09/26/25 21:15 Amino Acid Protein 30 ml BID PO 09/30/25 22:00 10/21/25 10:44 30 ML Multivit/Ca Carb/ B Cmplx/FA/Prenat 1 tab DAILY PO 09/30/25 11:12 10/21/25 10:37 1 TAB Albumin Human 100 ml @ 100 mls/hr ANABELLA PRN IV 10/03/25 09:45 10/07/25 17:42 100 MLS/HR Aspirin 81 mg DAILY NG 10/05/25 10:00 10/21/25 10:44 81 MG Enteral Nutritional Formula 1,000 ml 40ML/HR GT 10/04/25 18:30 10/20/25 23:12 1,000 ML Famotidine 10 mg HS IV 10/07/25 22:00 10/20/25 21:35 10 MG Albuterol 2.5 mg Q6HR NEB 10/08/25 12:00 10/21/25 11:24 2.5 MG Ipratropium [place] 0.5 mg Q6HR NEB 10/08/25 12:00 10/21/25 11:24 0.5 MG Artificial Tears 2 drop Q2HP PRN EACHEYE 10/08/25 14:30 Levetiracetam 100 ml @ 400 mls/hr BID IV 10/11/25 22:00 10/21/25 10:36 400 MLS/HR Lorazepam 1 mg Q5MINP PRN IV 10/11/25 21:00 Epoetin Mohan-epbx 10,000 unit MWF@2100 SC 10/12/25 21:00 Hold 10/19/25 21:57 10,000 UNIT Gentamicin Sulfate 0 ml @ 0 mls/hr PER PHARMACY IV 10/12/25 18:15 Cancel Sodium Chloride 10 ml QSHIFT@10,22 IV 10/15/25 22:00 10/21/25 10:37 10 ML Calcium Acetate 667 mg TIDWMEALS PO 10/18/25 18:00 10/21/25 12:29 667 MG Hydralazine HCl 10 mg Q6HP PRN IV 10/18/25 14:45 Acetaminophen 650 mg Q6HP PRN PO 10/21/25 13:00 objective GENERAL: Ill appearing, intubated on ventilator. Morbidly obese. EYES: PERRL, EOMI. Anicteric. HENT: Moist mucous membranes. LUNGS: Decreased breath sounds. CARDIOVASCULAR: Regular rate and rhythm. ABDOMEN: Soft, non-tender and non-distended. EXTREMITIES: No edema. SKIN: Warm, dry. laboratory and microbiology Laboratory Tests 10/21/25 08:15 10/21/25 03:32 Test 10/21/25 03:32 Range/Units Serum Glucose 135 H 74-106 mg/dL Problem List Acute syncopal episode. Status post cardiac arrest x3. ESRD on hemodialysis. Hypertension. Peripheral neuropathy. Severe peripheral artery disease. Acute on chronic congestive heart failure exacerbation. History of CVA. Anemia of chronic disease. Diabetes with severe diabetic nephropathy. History of pacemaker. Morbidly obese. Decompensated heart failure with ejection fraction less than 25%. Encephalomalacia. Hyperphosphatemia. Hyperparathyroidism. Assessment/Plan Continued all current supportive medical care. Aspirin. Nebulized breathing treatments. IV Hydralazine for SBP >180. Vasopressors for hemodynamic support. Additional plan as per the hospital course. Critical care time of 45 minutes provided to include time spent evaluation of patient at bedside, when appropriate patient/family education for diagnosis, treatment plan, review of pertinent medical information and discussion of care with specialty providers and PCP. Mechanical ventilator parameters, treatment and adjustments have personally been reviewed by me and treatment plan by database security expert has also been reviewed. Dietary Evaluation Review Comments: Nutrition Recommendation: 1) CCHO 75gm + renal standard diet 2) Pro-stat 1 pk BID 3) Nephro-nellie 1 tab daily 4) Monitor PO intake, lab values, weight trend, and I/O Expected Outcomes/Goals: Wound to improve Intake to meet >75% estimated needs FU 3-5 days Plan discussed with: Other MATTHEW CIFUENTES MD Oct 21, 2025 13:06
--- NOTE | 2025-10-21 15:05 | DVHPNRES ---
Progress Note Date Seen: Oct 21, 2025 Resident Creating Document: YOBANI GOETZ RESIDENT Has the PT tested + for MRSA If YES, has PT been informed?: No Medical Necessity Reason Pt with a Central, PICC or Fol: Yes The following are medically ne: Central Line, Rosales Catheter Reason for rosales catheter: Strict I&O Subjective Review of Systems Mr. Zamora is a 59 year old male with PMHx of ESRD with recent initiation of dialysis approximately 2 weeks ago , HFrEF with pacemaker placement, CVA in 2012, type 2 diabetes mellitus, gout, and hypertension, who presented to [facility] due to witnessed cardiopulmonary arrest during dialysis on 09/26/2025. At the time of evaluation the patient is sedated and intubated, majority of history is taken from previous medical record and his sister, Claudia Burnett. Per record, the patient became unresponsive during hemodialysis, CPR was intiated by bystanders and AED was used, by the time EMS arrived on scene the patient was found A&Ox4, GCS15, and moaning in pain. On evaluation in the ED, patient was complaining of dyspnea and chest wall pain. He was afebrile, normocardic with pacedc rhythm, hypertensive, and saturating adequately on room air. EKG showed paced rhythm with widened QTc. Initial labs are significant for normocytic anemia, hypokalemia, creatinine 6.85, BUN 43, and BNP 1232.11. Troponins were negative. UA without alteration. Chest xray significant for lungs with bilateral patchy airspace opacities, prominent pulmonary vasculature, with small bilateral pleural effusions. Head CT shows bilateral cerebral encephalomalacia and mild global cerebral volume loss without intracranial hemorrhage or mass effect. The patient was started on IV diuresis and admitted for further work up and managment. He was evaluated by cardiology who continued diuresis. The patient was evaluated by nephrology who state that given diminished cardiac function likely patient cannot tolerate large ultrafiltration goals. He was scheduled for further dialysis, having undergone dialysis on 09/28/2025 without issue. He was receiving dialysis on 10/01/2025 when he became bradycardic and went into asystole. Code blue was called and CPR was intiated with ROSC achieved after 7 minutes of CPR. He was transferred to the ICU and he entered asystole two more times in a span of 15 minutes a with ROSC achieved after 11 minutes of CPR and at 2 minutes of CPR respectively. He was intubated and started on pressors, sedation, antibiotics, and bicarbonate drip. On initial evaluation in the ICU, the patient is intubated, sedated, and mechanically ventilated, on levophed 2 mcg, pupils are reactive, no response to painful stimulus, cough and gag are present. Labs are significant for normocytic anemia, worsening thrombocytopenia, and worsening renal function. ABG is significant for metabolic alkalosis. Most recent chest xray shows worsening congestion. Past medical history: ESRD on dialysis, HFrEF, CVA in 2012, Type 2 diabetes mellitus, and hypertension Past surgical history: Pacemaker placement and replacement, Right femoral fracture repair Allergies: Denies Social: Per sister, the patient currently smokes marijuana, denies other drug use. Patient currently lives with his mother and his brother. Home meds: Famotidine, Allopurinol, pregabalin, furosemide, sevelamer, metoprolol, and lokelma 10/21/2025: Patient seen and examined at bedside, physical exam remains the same. Underwent dialysis yesterday. Decreased PEEP to 5. Remains on Precedex 0.3 which was started last night due to patient getting agitated. Objective vital signs Vital Sign Date Time Temp Pulse Resp B/P (MAP) Pulse Ox O2 Delivery O2 Flow Rate FiO2 10/21/25 14:34 83 21 132/71 (91) 100 30 10/21/25 10:30 Mechanical Ventilator+ 10/21/25 04:00 98.1 98.1 Total Intake and Output 10/20/25 10/20/25 10/21/25 15:00 23:00 07:00 Intake Total 100 ml 564.61 ml 434.3 ml Output Total 195 ml 60 ml Balance 100 ml 369.61 ml 374.3 ml medications Current Medications Medications Dose Ordered Sig/Esteban Route Start Time Stop Time Status Last Admin Dose Admin Diagnostic Test (Pha) 1 strip ACHS 09/26/25 22:00 10/21/25 12:29 1 STRIP Insulin Human Regular ACHS SC 09/26/25 22:00 10/21/25 12:30 2 UNITS Dextrose 50 ml UD PRN IV 09/26/25 21:15 Amino Acid Protein 30 ml BID PO 09/30/25 22:00 10/21/25 10:44 30 ML Multivit/Ca Carb/ B Cmplx/FA/Prenat 1 tab DAILY PO 09/30/25 11:12 10/21/25 10:37 1 TAB Albumin Human 100 ml @ 100 mls/hr ANABELLA PRN IV 10/03/25 09:45 10/07/25 17:42 100 MLS/HR Aspirin 81 mg DAILY NG 10/05/25 10:00 10/21/25 10:44 81 MG Enteral Nutritional Formula 1,000 ml 40ML/HR GT 10/04/25 18:30 10/20/25 23:12 1,000 ML Famotidine 10 mg HS IV 10/07/25 22:00 10/20/25 21:35 10 MG Albuterol 2.5 mg Q6HR NEB 10/08/25 12:00 10/21/25 11:24 2.5 MG Ipratropium [place] 0.5 mg Q6HR NEB 10/08/25 12:00 10/21/25 11:24 0.5 MG Artificial Tears 2 drop Q2HP PRN EACHEYE 10/08/25 14:30 Levetiracetam 100 ml @ 400 mls/hr BID IV 10/11/25 22:00 10/21/25 10:36 400 MLS/HR Lorazepam 1 mg Q5MINP PRN IV 10/11/25 21:00 Epoetin Mohan-epbx 10,000 unit MWF@2100 SC 10/12/25 21:00 Hold 10/19/25 21:57 10,000 UNIT Gentamicin Sulfate 0 ml @ 0 mls/hr PER PHARMACY IV 10/12/25 18:15 Cancel Sodium Chloride 10 ml QSHIFT@10,22 IV 10/15/25 22:00 10/21/25 10:37 10 ML Calcium Acetate 667 mg TIDWMEALS PO 10/18/25 18:00 10/21/25 12:29 667 MG Hydralazine HCl 10 mg Q6HP PRN IV 10/18/25 14:45 Acetaminophen 650 mg Q6HP PRN PO 10/21/25 13:00 Cancel Examination General: Patient is intubated, mechanically ventilated, non-reactive to painful stimulus HEENT: Normocephalic, atraumatic, 3 mm very sluggish, no EOM, eyes open and moving, unable to track objects, ET tube in place, orogastric tube in palce Respiratory/pulmonary: Bilateral chest expansion, decreased breath sounds bilaterally, wheezing in bilateral upper lobes Cardiovascular: Normal RRR Abdomen: Obese, Abdomen nondistended, normal bowel sounds no grimacing is observed on palpation, no palpable masses. Extremities: No deformities, bilateral lower extremity pedal edema 2+ up to upper thighs, with scrotal swelling, large red circular ulcers present in right calf, presence of femoral CVC in right groin region, pulses are present, blisters present on left forearm. Left lower extremity superficial ulcer on the lateral aspect of the leg. Right lower extremity 2 superficial ulcers 1 on the medial leg and 1 on the dorsal foot. Skin: Saccrococcyx 2.5x1.2x0.5cm, moist, open, full-thickness wound with moist red granulation tissue in the wound base and a mix of pale pink collagen scar tissue and dark brown adhered eschar material on the periwound area, there is minimal odor., darkened eschar lesions on his toes Neurological: hypoactive Gag and cough noted, patient blinks but does not track movements with his eyes, does not respond to verbal commands, no response to painful stimulus. Penile ulcer noted under the foreskin laboratory and microbiology Laboratory Tests 10/21/25 08:15 10/21/25 03:32 Test 10/21/25 03:32 Range/Units Serum Glucose 135 H 74-106 mg/dL Microbiology Date/Time Source Procedure Growth Status 10/08/25 22:28 Urine - Rosales [place] Urine Culture - Final Complete 10/06/25 13:00 Sacrum Gram Stain - Final Resulted 10/06/25 13:00 Wound Culture - Preliminary Enterobacter cloacae Enterococcus faecalis - VRE Resulted 10/02/25 17:33 Blood Blood Culture - Final NO GROWTH AFTER 5 DAYS OF INCUBATION. Complete Problem List/Assessment/Plan Problem List/Assessment/Plan Neurology # Sedated - Precedex at 0.3 mg # Encephalomalacia - Head CT 09/26/2025: Bilateral cerebral encephalomalacia # Global cerebral volume loss - Head CT 09/26/2025: Mild global cerebral volume loss # epilepsy - Oxycarbazepine - held # Concern for anoxic brain injury - Head CT 10/06/25: No acute intracranial hemorrhage or mass effect.Age indeterminate small infarct involving the right cerebellum, favored to be chronic. If there is clinical concern for acute infarct, recommend MRI for further evaluation.Chronic bilateral parietal and occipital lobe infarcts. - Despite being off sedation for 48 hours, patient still has no meaningful neurologic response. . Neurology has been consulted - unable to obtain MRI as per [employer] pacemaker leads are older generation and not MRI compatible. #History of CVA in 201210/10/25 CT head negative for acute process. - Neurology consult - Off sedation since 10/08 Cardiovascular #S/p Cardiac arrest with ROSC - 09/26/2025: Witnessed at dialysis center, bystanders started CPR and AED use, ROSC achieved before EMS arrived - 10/01/2025: Rhythm: Asystole, ROSC achieved after 7 minutes of CPR - 10/01/2025: Rhythm: Asystole, ROSC achieved after 11 minutes of CPR - 10/01/2025: Rhythm: Asystole, ROSC achieved after 2 minutes of CPR # Cardiogenic shock # Lactic acidosis likely due to above - wound culture growing Enterobacter cloacae MDR, VRE Enterococcus faecalis. - Levophed 2 mcg, now discontinued - Epinephrine has been discontinued # Acute on chronic HFrEF - BNP 1232.11 - Echocardiogram 08/22/2025: LVEF of 20-25%, Severe LV dysfunction, moderate mitral regurgitation - Per cardiology: Diuretics with lasix, aspirin, nitroglycerin SL - Lasix 40 mg IV daily - S/p pacemaker placement # Bilateral pleural effusion - Chest xray 10/12/2025: No significant interval change. #Hypertension - Amlodipine held by nephrology Respiratory # Acute hypoxic hypercapnic respiratory failure # pulmonary edema # Ventilator -Intubated (10/01/2025) -On [facility] vent : VCAC Mode RR 18 TV 450ml, PEEP Of 8 and FiO2 of 4045% - 8.0 endotracheal tube, 24 at the lip - Cutlures from sputum: Normal orophargyngeal elpidio GI # Peptic ulcer prophylaxis -Pantoprazole 40 mg IV daily # Rosales catheter draining clear urine placed on 10/09/2025 Nephrology # ESRD on hemodialysis - Received dialysis without complication and without pressor support on 10/13/2025 with 2 L removed - Strict Is and Os # Severe diabetic nephropathy #Acute metabolic alkalosis # Secondary hyperparathyroidism # Hypocalcemia - Monitor - Calcitrol # Hyperphosphatemia - Phosphate binders Infectious disease # 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 # Possible cellulitis secondary to lower extremity ulcers, , leg wound growing E coli # Complicated UTI growing MDR cloacae, VRE - IV linezolid, now discontinued - started patient on IV gentamicin per pharmacy, now discontinued - consulted infectious disease; per ID to discontinue systemic antibiotics likely colonization #Septic vs Cardiogenic shock - blood Cultures: Negative at 72 hours - Ceftriaxone 1 g IV daily, now discontinue Hem/onc #Thrombocytopenia, improved - Monitor #Normocytic anemia, likely due to chronic disease - Monitor Hand H - Per nephrology: Epogen 13057 SQ 3 weekly as tolerated Endocrine #Type 2 diabetes mellitus - SSI -Accu cheks MSK # Gout - Allopurinol 300 mg PO daily Skin # Circular ulcers present on right leg, present on admission # Possible Sacral Ulcer stage 2, present on admission - Wound culture: VRE - Meropenem 500 mg daily, discontinued - Linezolid 600 mg IV q 12 hours , now discontinued Marijuana use DVT prophylaxis: SCD PUD prophylaxis: Pantoprazole 40 mg IV daily Lines -R femoral central line: 10/01/2025, discontinued on 10/15/2025. - thigh PICC line placed on 10/15/2025 -Rosales catheter 10/09/2025 -ET tube: 10/01/2025 - Tunneled catheter in right pectoral region Patient has right femoral line given the presence of right tunnel catheter in right pectoral region and pacemaker in left field. We will give the patient more time for sedation to wear off for accurate neurological evaluation. [facility] Fent[facility] Discontinued Propofol: dc'ed Bicarbonate drip discontinued Levophed discontinued Critical care time 82 minutes excluding procedure. Code status discussed greater than 20 minutes: DNR Detailed conversation held with patient's sister at bedside where prognosis was explained, per patient's sister would like to wait until Sunday before deciding for compassionate extubation versus tracheostomy. Plan discussed with Dr. Bautista Plan discussed with: Other (JOYCE Drummond) My Orders My Orders Orders - YOBANI GOETZ RESIDENT Procedure Category Date Status Time Chest Portable XY 10/21/25 Resulted 04:00 Basic Metabolic Panel LAB 10/22/25 Verified 04:00 Complete Blood Count LAB 10/22/25 Verified 04:00 Chest Portable XY 10/22/25 Logged 04:00 Abg W/ Co-Ox RT 10/22/25 Logged 04:00 Dietary Evaluation Review Comments: Nutrition Recommendation: 1) CCHO 75gm + renal standard diet 2) Pro-stat 1 pk BID 3) Nephro-nellie 1 tab daily 4) Monitor PO intake, lab values, weight trend, and I/O Expected Outcomes/Goals: Wound to improve Intake to meet >75% estimated needs FU 3-5 days Visit Coding STANDARD RES Billing Provider: ANANT BAUTISTA MD Date of Service if different f: Oct 21, 2025 Common Visit Codes: 81145-[id number] CARE 30-74 MIN, 45344-[id number] CARE-EACH +30MIN YOBANI GOETZ Oct 21, 2025 15:05 ANANT BAUTISTA MD Oct 25, 2025 11:22
[2025-10-21] MEDS ORDERED: EPOETIN ALFA-EPBX 10,000 UNIT/1ML VIAL SC ONE (21:00)
--- NOTE | 2025-10-21 23:32 | DVHPN2 ---
Consult Progress Note Objective vital signs Vital Sign Date Time Temp Pulse Resp B/P (MAP) Pulse Ox O2 Delivery O2 Flow Rate FiO2 10/21/25 22:30 73 14 130/60 (83) 97 10/21/25 22:17 30 10/21/25 22:00 Mechanical Ventilator+ 10/21/25 20:00 98.5 98.5 Total Intake and Output 10/20/25 10/20/25 10/21/25 15:00 23:00 07:00 Intake Total 100 ml 564.61 ml 444.2 ml Output Total 195 ml 60 ml Balance 100 ml 369.61 ml 384.2 ml medications Current Medications Medications Dose Ordered Sig/Esteban Route Start Time Stop Time Status Last Admin Dose Admin Diagnostic Test (Pha) 1 strip ACHS 09/26/25 22:00 10/21/25 21:36 1 STRIP Insulin Human Regular ACHS SC 09/26/25 22:00 10/21/25 21:25 2 UNITS Dextrose 50 ml UD PRN IV 09/26/25 21:15 Amino Acid Protein 30 ml BID PO 09/30/25 22:00 10/21/25 21:36 30 ML Multivit/Ca Carb/ B Cmplx/FA/Prenat 1 tab DAILY PO 09/30/25 11:12 10/21/25 10:37 1 TAB Albumin Human 100 ml @ 100 mls/hr ANABELLA PRN IV 10/03/25 09:45 10/07/25 17:42 100 MLS/HR Aspirin 81 mg DAILY NG 10/05/25 10:00 10/21/25 10:44 81 MG Enteral Nutritional Formula 1,000 ml 40ML/HR GT 10/04/25 18:30 10/20/25 23:12 1,000 ML Famotidine 10 mg HS IV 10/07/25 22:00 10/21/25 21:31 10 MG Albuterol 2.5 mg Q6HR NEB 10/08/25 12:00 10/21/25 18:22 2.5 MG Ipratropium [place] 0.5 mg Q6HR NEB 10/08/25 12:00 10/21/25 18:22 0.5 MG Artificial Tears 2 drop Q2HP PRN EACHEYE 10/08/25 14:30 Levetiracetam 100 ml @ 400 mls/hr BID IV 10/11/25 22:00 10/21/25 21:31 400 MLS/HR Lorazepam 1 mg Q5MINP PRN IV 10/11/25 21:00 Epoetin Mohan-epbx 10,000 unit MWF@2100 SC 10/12/25 21:00 Hold 10/19/25 21:57 10,000 UNIT Gentamicin Sulfate 0 ml @ 0 mls/hr PER PHARMACY IV 10/12/25 18:15 Cancel Sodium Chloride 10 ml QSHIFT@10,22 IV 10/15/25 22:00 10/21/25 21:36 10 ML Calcium Acetate 667 mg TIDWMEALS PO 10/18/25 18:00 10/21/25 17:56 667 MG Hydralazine HCl 10 mg Q6HP PRN IV 10/18/25 14:45 Acetaminophen 650 mg Q6HP PRN PO 10/21/25 13:00 Cancel laboratory and microbiology Laboratory Tests 10/21/25 08:15 10/21/25 03:32 Test 10/21/25 03:32 Range/Units Serum Glucose 135 H 74-106 mg/dL Problem List/Assessment/Plan Problem List/Assessment/Plan ASSESSMENT AND PLAN: ID Problem List: \-- [id number] cardiac arrest at dialysis center with bystander CPR and AED shock \-- In-hospital bradycardia/asystolic arrest during hemodialysis on 10/01 with prolonged CPR and defibrillation \-- Acute hypoxic respiratory failure requiring mechanical ventilation \-- Multifocal pulmonary airspace disease and pulmonary vascular congestion (pulmonary edema/contusions) after multiple CPR events and underlying CHF \-- CKD on chronic hemodialysis (reported schedule Sunday//Sunday) \-- CHF \-- Diabetes mellitus \-- Hypertension \-- History of stroke \-- Pacemaker in situ (triple-lead on CXR) \-- Chronic thrombocytopenia (platelets progressively decreased from ~115K on admission to 60K on 10/01; most recent ~89K) \-- Sacrococcygeal pressure ulcer (full-thickness, granulating, no drainage/odor) \-- Right anterior ulcer (granulating, no drainage/edema) \-- Multiple left plantar blood-filled blisters and calluses (no deep tissue involvement) \-- Scattered skin ulcers/eschar likely related to peripheral arterial disease and pressure injuries \-- Wound culture (10/06) with VRE and carbapenem-resistant Enterobacter (CRE), currently felt to represent colonization \-- Pneumonia vs pulmonary edema/contusions treated empirically with ceftriaxone clindamycin, later meropenem \-- Current antibiotic regimen: linezolid + gentamicin per pharmacy at the time of this consult Assessment: Theo Zamora is a 59-year-old male with CKD on chronic hemodialysis (), CHF, history of stroke, diabetes, and hypertension who initially had a syncopal episode and cardiac arrest at the dialysis center. He received bystander CPR and AED shock; on EMS arrival he was awake, alert, and oriented x4 (GCS 15) but had chest wall pain. Initial evaluation showed leukocyte count 7.5, hemoglobin 9.8, platelets 115K, sodium 142, BUN 43, creatinine 6.85. CT head revealed no acute intracranial hemorrhage or mass effect but did show chronic encephalomalacia and chronic microvascular ischemic changes. CXR showed a triple-lead pacemaker and bilateral airspace opacities and pleural effusions without fractures, interpreted as pulmonary contusions and congestion. He was admitted to telemetry and subsequently developed a second arrest on 10/01 while on hemodialysis, with bradycardia progressing to asystole. He received chest compressions for 14 minutes and defibrillation at approximately 14 minutes 22 seconds. Post-code lactic acid was 5.7, improving to 1.9 after return of circulation and fluid resuscitation. Labs on 10/01: WBC 7.2, hemoglobin 8.6, platelets 60K, sodium 140, potassium 4.6, BUN 51, creatinine 7.46, glucose 100, liver enzymes unremarkable. He required intubation and mechanical ventilation (FiO2 50%, PEEP 5 initially), vasopressor support with norepinephrine (Levophed), and empiric antibiotics (ceftriaxone for pneumonia coverage; clindamycin for pneumonia and skin injuries). Respiratory cultures on 10/01 showed normal respiratory elpidio; cultures on 10/02 showed no growth to date. CXR and KUB showed colonic distension with NG tube in the stomach, and moderate multifocal bilateral pulmonary airspace disease with pulmonary vascular congestion. Vasopressor requirements gradually improved and were discontinued; he has now been off pressors for approximately 5 days. FiO2 has improved to 30% with PEEP 5, though CXR continues to show unchanging multifocal airspace disease. On exam he has multiple skin injuries, including a sacrococcygeal full-thickness ulcer (2.5 x 0.2 cm) with healthy granulation tissue and no odor or significant drainage, and a right anterior ulcer (3 x 4 cm) with healthy granulation and epithelium, no drainage, exudate, or surrounding swelling/edema. Eschar is noted on toes and ankle in areas of prior ulcers/ischemic disease. There are multiple left plantar foot blood-filled blisters and calluses; de-roofed blisters reveal intact underlying skin with no deeper edema or induration. These injuries are thought to be related to peripheral arterial disease, pressure, and thrombocytopenia-related skin fragility. Wound care is being provided. A wound culture on 10/06 grew VRE and a multidrug-resistant Enterobacter (carbapenem-resistant), sensitive only to gentamicin. Current antibiotics include linezolid and gentamicin per pharmacy. Clinically, there are no signs of cellulitis at the wound sites, no diarrhea, no reports of new drainage or local changes, and no ongoing hemodynamic instability or other signs of sepsis. The VRE and Enterobacter are felt to represent colonization of chronic wounds rather than active invasive infection at this time. Given his advanced CKD on dialysis and chronic thrombocytopenia (platelets <100K), the risks of gentamicin (nephrotoxicity/ototoxicity in a dialysis patient) and linezolid (worsening thrombocytopenia) likely outweigh the benefits in the absence of clear evidence of active systemic infection. 10/13: hemodynamically stable off antibiotics 10/14: urine culture w. rosalse catheter sampled oliguric urine growing VRE and enterobacter - consistent with colonization Plan: 0. will continue to monitor patient off all antibiotics 1\. Wound colonization with VRE and CRE Enterobacter (no current evidence of invasive infection): \-- Wound culture (10/06) with VRE and carbapenem-resistant Enterobacter likely represents colonization of chronic pressure/ischemic ulcers rather than active infection based on current exam (granulation tissue, lack of drainage, lack of surrounding erythema/edema, no systemic signs of sepsis). // Likewise, urine sample from oliguric patient sampled from a rosales catheter placed at time of admission would like represent stagnant urine breeding colonized bacteria. \-- Recommend stop all systemic antibiotics at this time, including linezolid and gentamicin, given: Lack of clinical evidence for active invasive infection High risk of ototoxicity/nephrotoxicity from gentamicin in a dialysis patient Risk of worsening thrombocytopenia with linezolid in a patient with platelets <100K \-- Continue meticulous local wound care as per wound care nursing and primary team. \-- Monitor wounds closely for any new drainage, malodor, increased pain, erythema, warmth, or expansion, which would raise concern for superimposed infection. 2\. Acute hypoxic respiratory failure; multifocal airspace disease (pulmonary edema/contusions; possible pneumonia): \-- Currently mechanically ventilated with FiO2 ~30% and PEEP 5; off vasopressors for ~5 days. \-- Continue ventilator weaning as tolerated per ICU/primary team. \-- Continue aggressive volume management and diuresis in concert with hemodialysis to address pulmonary edema as seen on CXR. \-- At present, respiratory cultures show only normal elpidio or no growth; there are no clear signs of active, progressive pneumonia distinct from pulmonary edema/contusion. \-- If clinical concern for sepsis or worsening pneumonia arises (e.g., new fever, leukocytosis, rising vasopressor requirement, worsening oxygenation, hypotension, new purulent secretions): Obtain repeat sputum culture from a tracheal aspirate or tracheal wash. Reinitiate empiric therapy for hospital-acquired pneumonia. Options discussed include: Piperacillin-tazobactam (Zosyn) or cefepime for Pseudomonas and broad gram-negative coverage. At this time, VRE and carbapenem-resistant Enterobacter from the sacral wound are not felt to be significantly contributing to the pulmonary process or overall clinical picture, and targeted therapy against these organisms is not recommended absent evidence of invasive disease. 3\. Chronic kidney disease on hemodialysis; risk of electrolyte-related arrhythmia and arrest: \-- Continue scheduled hemodialysis (reported Sunday//Sunday) with careful monitoring of potassium and other electrolytes, especially in the olga- dialysis period given prior arrest during hemodialysis. \-- Avoid nephrotoxic antibiotics where possible; specifically recommend discontinuation of gentamicin as above. \-- Continue close hemodynamic and rhythm monitoring during dialysis sessions. 4\. Chronic thrombocytopenia: \-- Platelet count has declined from ~115K on admission to as low as 60K, with recent level around 89K. \-- Avoid linezolid in the setting of chronic thrombocytopenia where possible, as recommended above. \-- Monitor platelet counts serially. \-- Transfusion and further hematologic evaluation to be directed by the primary/ICU team. 5\. Skin ulcers, pressure injuries, and ischemic lesions: \-- Continue dedicated wound care with: Sacrococcygeal ulcer (2.5 x 0.2 cm, full thickness, granulating, no drainage/odor). Right anterior ulcer (3 x 4 cm, healthy granulation and epithelium, no drainage or surrounding edema). Eschar on toes and ankle at prior ulcer/ischemic sites. Multiple left plantar blood-filled blisters and calluses, with blisters de-roofed to healthy underlying tissue and no deep edema or induration. \-- Maintain offloading and repositioning strategies to avoid further pressure on sacrum and other bony prominences; defer specific dressing and positioning regimens to wound care nursing. \-- No systemic antibiotics indicated for these wounds at present, in the absence of cellulitis or systemic signs of infection. 6\. Cardiovascular status; postcardiac arrest care: \-- He has had two significant cardiac events (dwy-[id number] arrest at dialysis center; in-hospital asystolic arrest during hemodialysis). \-- Etiology remains unclear but may be related in part to electrolyte shifts in the setting of CKD on dialysis and underlying structural heart disease (CHF, pacemaker in place). \-- Currently off vasopressors with stable blood pressures per transcript. \-- Continue telemetry and standard postcardiac arrest care as directed by ICU/cardiology teams. \-- No additional ID-specific interventions beyond those noted. 7\. Diabetes mellitus, hypertension, CHF, history of stroke: \-- Management to be continued by primary and consulting services. \-- From an ID standpoint, these comorbidities increase risk of poor wound healing and infection; reinforce close monitoring of wounds and careful glycemic and volume control. Isolation Precautions: \-- Isolation precautions: Not specified in transcript. (Given colonization with VRE and carbapenem-resistant Enterobacter, facility policies on contact precautions should be followed as per hospital protocol; defer to hospital infection prevention team.) Plan is subject to change pending incorporation of new incoming information/diagnostics. Updates may be added as an addendum at the bottom (or top) of this note. Infectious Disease will continue to follow. Please contact the ID service with any new questions or concerns. Electronically signed by: Lc Huston MD, 10/13/2025 Authorized and Performed by: lc huston Md Total critical care time: Approximately 66 minutes Due to a high probability of clinically significant, life threatening deterioration, the patient required my highest level of preparedness to intervene emergently and I personally spent this critical care time directly and personally managing the patient. This critical care time included obtaining a history; examining the patient; pulse oximetry; ordering and review of studies; arranging urgent treatment with development of a management plan; evaluation of patient's response to treatment; frequent reassessment; and, discussions with other providers. This critical care time was performed to assess and manage the high probability of imminent, life-threatening deterioration that could result in multi-organ failure. It was exclusive of separately billable procedures and treating other patients and teaching time. Physical Exam: General: NAD Neck: Supple. No masses. HEENT: PERRL. Normal lids and conjunctiva. Moist mucous membranes. Oropharynx without lesions, exudates or excessive erythema. Normal appearance of the external aspects of the nose and ears. Heart: Regular rhythm, normal rate. No murmur. No lower extremity edema. Lungs: Normal respiratory effort. Clear to auscultation bilaterally. No wheezes. No crackles. Mechanically ventilated via endotracheal tube; most recent settings in transcript: FiO2 approximately 30%, PEEP 5 cm H?O. Abdomen: Soft. Non-tender. Non-distended. No masses or abdominal hernia. Msk: No digital cyanosis. Normal strength and tone in all 4 limbs. Chest wall tenderness and bruising present, consistent with recent CPR. Skin: Warm and dry, no rashes. Sacrococcygeal ulcer approximately 2.5 x 0.2 cm, full-thickness wound with healthy granulation tissue, no odor or significant drainage. Right anterior ulcer approximately 3 x 4 cm with healthy granulation tissue and epithelium, no drainage, exudate, or surrounding swelling/edema. Eschar noted on toes and ankle in areas of prior ulcers/ischemic disease. Multiple left plantar foot blood-filled blisters and calluses; blisters de- roofed with intact underlying skin, no signs of deeper edema or induration. Scattered skin ulceration and tissue injury consistent with peripheral arterial disease and pressure injury. Neuro: Alert. No facial droop or slurred speech. Extra-ocular movements intact. Sensation intact to soft touch in all 4 limbs. Psych: Appropriate mood. Full affect. Oriented to person, place, time, and situation. Dietary Evaluation Review Comments: Nutrition Recommendation: 1) CCHO 75gm + renal standard diet 2) Pro-stat 1 pk BID 3) Nephro-nellie 1 tab daily 4) Monitor PO intake, lab values, weight trend, and I/O Expected Outcomes/Goals: Wound to improve Intake to meet >75% estimated needs FU 3-5 days LC HUSTON MD Oct 21, 2025 23:32
[2025-10-22] VITALS (87 sets, daily range): BP systolic 121–155; BP diastolic 55–99; PULSE 67–96; RESP 13–24; TEMP 97.3; O2SAT 96–100
[2025-10-22 01:49] LABS: Hemoglobin 7.6 g/dL (13.5-17.5); Nucleated Red Blood Cells % 0.0 %
[2025-10-22 01:51] LABS: Hematocrit 23.9 % (41.0-53.0); Mean Corpuscular Hemoglobin 31.4 pg (28.0-32.0); Mean Corpuscular Volume 98.5 fL (80.0-100.0)
[2025-10-22 01:58] LABS: Chloride 103 mmol/L (98-107); Potassium 3.6 mmol/L (3.5-5.1); Sodium 142 mmol/L (136-145)
[2025-10-22 01:59] LABS: Anion Gap 8 (5-15)
[2025-10-22 02:00] LABS: Calcium 9.0 mg/dL (8.7-10.4)
[2025-10-22 02:05] LABS: BUN/Creatinine Ratio 9.3 (10.0-20.0); Blood Urea Nitrogen 34 mg/dL (9-23); Carbon Dioxide 31 mmol/L (20-31); Glucose 146 mg/dL (74-106)
--- NOTE | 2025-10-22 06:00 | DVH ---
CHEST RADIOGRAPH Indication: intubated Technique: Single frontal view of the chest was obtained COMPARISON: XY CHEST PORTABLE on DOS: 10/21/25, XY CHEST PORTABLE on DOS: 10/20/25, XY CHEST PORTABLE on DOS: 10/19/25, XY CHEST PORTABLE on DOS: 10/18/25, XY CHEST PORTABLE on DOS: 10/17/25 FINDINGS: Lines and Tubes: Endotracheal tube in satisfactory position. Left chest wall pacemaker and right tunneled central venous catheter and enteric catheter in satisfactory position. Lungs: Unchanged multifocal airspace disease. Unchanged low lung volumes. Pleura: No effusion. No pneumothorax. Cardiomediastinal contours: Unremarkable Bones: Unremarkable IMPRESSION: Lines and tubes in satisfactory position. No significant interval change.
[2025-10-22 10:21] LABS: Base Excess 2.9 mmol/L (-2.0-3.0)
--- NOTE | 2025-10-22 10:43 | DVHPN2 ---
Progress Note Date Seen: Oct 22, 2025 Has the PT tested + for MRSA If YES, has PT been informed?: No Medical Necessity Reason Pt with a Central, PICC or Fol: Yes The following are medically ne: Central Line, Rosales Catheter Reason for rosales catheter: Strict I&O Subjective Review of Systems: RESPIRATORY:Abnormal Other Systems: Patient seen and examined by myself today in follow-up, patient remained intubated on ventilator Patient examined hemodialysis, blood pressure stable Objective vital signs Vital Sign Date Time Temp Pulse Resp B/P (MAP) Pulse Ox O2 Delivery O2 Flow Rate FiO2 10/22/25 10:00 87 20 144/77 (99) 100 30 10/22/25 05:52 Mechanical Ventilator+ 10/22/25 04:00 97.3 97.3 Total Intake and Output 10/21/25 10/21/25 10/22/25 15:00 23:00 07:00 Intake Total 179.2 ml 826.2 ml 509.3 ml Output Total 100 ml 50 ml Balance 179.2 ml 726.2 ml 459.3 ml medications Current Medications Medications Dose Ordered Sig/Esteban Route Start Time Stop Time Status Last Admin Dose Admin Diagnostic Test (Pha) 1 strip ACHS 09/26/25 22:00 10/22/25 06:01 1 STRIP Insulin Human Regular ACHS SC 09/26/25 22:00 10/22/25 06:00 2 UNITS Dextrose 50 ml UD PRN IV 09/26/25 21:15 Amino Acid Protein 30 ml BID PO 09/30/25 22:00 10/22/25 09:27 30 ML Multivit/Ca Carb/ B Cmplx/FA/Prenat 1 tab DAILY PO 09/30/25 11:12 10/22/25 09:22 1 TAB Albumin Human 100 ml @ 100 mls/hr ANABELLA PRN IV 10/03/25 09:45 10/07/25 17:42 100 MLS/HR Aspirin 81 mg DAILY NG 10/05/25 10:00 10/22/25 09:22 81 MG Enteral Nutritional Formula 1,000 ml 40ML/HR GT 10/04/25 18:30 10/20/25 23:12 1,000 ML Famotidine 10 mg HS IV 10/07/25 22:00 10/21/25 21:31 10 MG Albuterol 2.5 mg Q6HR NEB 10/08/25 12:00 10/22/25 06:48 2.5 MG Ipratropium [place] 0.5 mg Q6HR NEB 10/08/25 12:00 10/22/25 06:48 0.5 MG Artificial Tears 2 drop Q2HP PRN EACHEYE 10/08/25 14:30 Levetiracetam 100 ml @ 400 mls/hr BID IV 10/11/25 22:00 10/22/25 09:22 400 MLS/HR Lorazepam 1 mg Q5MINP PRN IV 10/11/25 21:00 Epoetin Mohan-epbx 10,000 unit MWF@2100 SC 10/12/25 21:00 Hold 10/19/25 21:57 10,000 UNIT Gentamicin Sulfate 0 ml @ 0 mls/hr PER PHARMACY IV 10/12/25 18:15 Cancel Sodium Chloride 10 ml QSHIFT@10,22 IV 10/15/25 22:00 10/22/25 09:22 10 ML Calcium Acetate 667 mg TIDWMEALS PO 10/18/25 18:00 10/22/25 09:18 667 MG Hydralazine HCl 10 mg Q6HP PRN IV 10/18/25 14:45 Acetaminophen 650 mg Q6HP PRN PO 10/21/25 13:00 Cancel Examination: LUNGS:Abnormal, CVS:Normal, MSK:Abnormal laboratory and microbiology Laboratory Tests 10/22/25 01:46 Test 10/22/25 01:46 Range/Units Serum Glucose 146 H 74-106 mg/dL Microbiology Date/Time Source Procedure Growth Status 10/08/25 22:28 Urine - [place] Urine Culture - Final Complete 10/06/25 13:00 Sacrum Gram Stain - Final Resulted 10/06/25 13:00 Wound Culture - Preliminary Enterobacter cloacae Enterococcus faecalis - VRE Resulted 10/02/25 17:33 Blood Blood Culture - Final NO GROWTH AFTER 5 DAYS OF INCUBATION. Complete Problem List/Assessment/Plan Problem List/Assessment/Plan End-stage renal disease on hemodialysis Acute respiratory failure, patient intubated on ventilator Status post cardiac arrest x3 Decompensated heart failure with ejection fraction less than 25% Diabetes with severe diabetic nephropathy Severe peripheral artery disease Anemia of chronic kidney disease Encephalomalacia Hyperphosphatemia Hyperparathyroidism, secondary Recommendations Continue with UF 3-4 L as tolerated Epogen 58095 subQ 3 times weekly Albumin 25% IV prn hemodialysis Strict I&Os Renal diet IV pressors for blood pressure support phosphate binders Calcitriol Discontinue amlodipine We will continue to follow Plan discussed with: Other (Nurse) Dietary Evaluation Review Comments: Nutrition Recommendation: 1) CCHO 75gm + renal standard diet 2) Pro-stat 1 pk BID 3) Nephro-nellie 1 tab daily 4) Monitor PO intake, lab values, weight trend, and I/O Expected Outcomes/Goals: Wound to improve Intake to meet >75% estimated needs FU 3-5 days AKASH BARRAZA MD Oct 22, 2025 10:43
--- NOTE | 2025-10-22 13:43 | DVHPNRES ---
Progress Note Date Seen: Oct 22, 2025 Resident Creating Document: YOBANI GOETZ RESIDENT Has the PT tested + for MRSA If YES, has PT been informed?: No Medical Necessity Reason Pt with a Central, PICC or Fol: Yes The following are medically ne: Central Line, Rosales Catheter Reason for rosales catheter: Strict I&O Subjective Review of Systems Mr. Zamora is a 59 year old male with PMHx of ESRD with recent initiation of dialysis approximately 2 weeks ago , HFrEF with pacemaker placement, CVA in 2012, type 2 diabetes mellitus, gout, and hypertension, who presented to [facility] due to witnessed cardiopulmonary arrest during dialysis on 09/26/2025. At the time of evaluation the patient is sedated and intubated, majority of history is taken from previous medical record and his sister, Claudia Burnett. Per record, the patient became unresponsive during hemodialysis, CPR was intiated by bystanders and AED was used, by the time EMS arrived on scene the patient was found A&Ox4, GCS15, and moaning in pain. On evaluation in the ED, patient was complaining of dyspnea and chest wall pain. He was afebrile, normocardic with pacedc rhythm, hypertensive, and saturating adequately on room air. EKG showed paced rhythm with widened QTc. Initial labs are significant for normocytic anemia, hypokalemia, creatinine 6.85, BUN 43, and BNP 1232.11. Troponins were negative. UA without alteration. Chest xray significant for lungs with bilateral patchy airspace opacities, prominent pulmonary vasculature, with small bilateral pleural effusions. Head CT shows bilateral cerebral encephalomalacia and mild global cerebral volume loss without intracranial hemorrhage or mass effect. The patient was started on IV diuresis and admitted for further work up and managment. He was evaluated by cardiology who continued diuresis. The patient was evaluated by nephrology who state that given diminished cardiac function likely patient cannot tolerate large ultrafiltration goals. He was scheduled for further dialysis, having undergone dialysis on 09/28/2025 without issue. He was receiving dialysis on 10/01/2025 when he became bradycardic and went into asystole. Code blue was called and CPR was intiated with ROSC achieved after 7 minutes of CPR. He was transferred to the ICU and he entered asystole two more times in a span of 15 minutes a with ROSC achieved after 11 minutes of CPR and at 2 minutes of CPR respectively. He was intubated and started on pressors, sedation, antibiotics, and bicarbonate drip. On initial evaluation in the ICU, the patient is intubated, sedated, and mechanically ventilated, on levophed 2 mcg, pupils are reactive, no response to painful stimulus, cough and gag are present. Labs are significant for normocytic anemia, worsening thrombocytopenia, and worsening renal function. ABG is significant for metabolic alkalosis. Most recent chest xray shows worsening congestion. Past medical history: ESRD on dialysis, HFrEF, CVA in 2012, Type 2 diabetes mellitus, and hypertension Past surgical history: Pacemaker placement and replacement, Right femoral fracture repair Allergies: Denies Social: Per sister, the patient currently smokes marijuana, denies other drug use. Patient currently lives with his mother and his brother. Home meds: Famotidine, Allopurinol, pregabalin, furosemide, sevelamer, metoprolol, and lokelma 10/22/2025: Patient seen and examined at bedside, physical exam remains unchanged. Scheduled to undergo dialysis today. Remains on Precedex at 0.3. Objective vital signs Vital Sign Date Time Temp Pulse Resp B/P (MAP) Pulse Ox O2 Delivery O2 Flow Rate FiO2 10/22/25 13:15 92 16 146/78 (100) 100 10/22/25 12:00 30 10/22/25 12:00 Mechanical Ventilator+ 10/22/25 04:00 97.3 97.3 Total Intake and Output 10/21/25 10/21/25 10/22/25 15:00 23:00 07:00 Intake Total 179.2 ml 826.2 ml 509.3 ml Output Total 100 ml 50 ml Balance 179.2 ml 726.2 ml 459.3 ml medications Current Medications Medications Dose Ordered Sig/Esteban Route Start Time Stop Time Status Last Admin Dose Admin Diagnostic Test (Pha) 1 strip ACHS 09/26/25 22:00 10/22/25 12:10 1 STRIP Insulin Human Regular ACHS SC 09/26/25 22:00 10/22/25 12:13 2 UNITS Dextrose 50 ml UD PRN IV 09/26/25 21:15 Amino Acid Protein 30 ml BID PO 09/30/25 22:00 10/22/25 09:27 30 ML Multivit/Ca Carb/ B Cmplx/FA/Prenat 1 tab DAILY PO 09/30/25 11:12 10/22/25 09:22 1 TAB Albumin Human 100 ml @ 100 mls/hr ANABELLA PRN IV 10/03/25 09:45 10/07/25 17:42 100 MLS/HR Aspirin 81 mg DAILY NG 10/05/25 10:00 10/22/25 09:22 81 MG Enteral Nutritional Formula 1,000 ml 40ML/HR GT 10/04/25 18:30 10/20/25 23:12 1,000 ML Famotidine 10 mg HS IV 10/07/25 22:00 10/21/25 21:31 10 MG Albuterol 2.5 mg Q6HR NEB 10/08/25 12:00 10/22/25 11:49 2.5 MG Ipratropium [place] 0.5 mg Q6HR NEB 10/08/25 12:00 10/22/25 11:49 0.5 MG Artificial Tears 2 drop Q2HP PRN EACHEYE 10/08/25 14:30 Levetiracetam 100 ml @ 400 mls/hr BID IV 10/11/25 22:00 10/22/25 09:22 400 MLS/HR Lorazepam 1 mg Q5MINP PRN IV 10/11/25 21:00 Epoetin Mohan-epbx 10,000 unit MWF@2100 SC 10/12/25 21:00 Hold 10/19/25 21:57 10,000 UNIT Gentamicin Sulfate 0 ml @ 0 mls/hr PER PHARMACY IV 10/12/25 18:15 Cancel Sodium Chloride 10 ml QSHIFT@10,22 IV 10/15/25 22:00 10/22/25 09:22 10 ML Calcium Acetate 667 mg TIDWMEALS PO 10/18/25 18:00 10/22/25 13:01 667 MG Hydralazine HCl 10 mg Q6HP PRN IV 10/18/25 14:45 Acetaminophen 650 mg Q6HP PRN PO 10/21/25 13:00 Cancel Examination General: Patient is intubated, mechanically ventilated, non-reactive to painful stimulus HEENT: Normocephalic, atraumatic, 3 mm very sluggish, no EOM, eyes open and moving, unable to track objects, ET tube in place, orogastric tube in palce Respiratory/pulmonary: Bilateral chest expansion, decreased breath sounds bilaterally, wheezing in bilateral upper lobes Cardiovascular: Normal RRR Abdomen: Obese, Abdomen nondistended, normal bowel sounds no grimacing is observed on palpation, no palpable masses. Extremities: No deformities, bilateral lower extremity pedal edema 2+ up to upper thighs, with scrotal swelling, large red circular ulcers present in right calf, presence of femoral CVC in right groin region, pulses are present, blisters present on left forearm. Left lower extremity superficial ulcer on the lateral aspect of the leg. Right lower extremity 2 superficial ulcers 1 on the medial leg and 1 on the dorsal foot. Skin: Saccrococcyx 2.5x1.2x0.5cm, moist, open, full-thickness wound with moist red granulation tissue in the wound base and a mix of pale pink collagen scar tissue and dark brown adhered eschar material on the periwound area, there is minimal odor., darkened eschar lesions on his toes Neurological: hypoactive Gag and cough noted, patient blinks but does not track movements with his eyes, does not respond to verbal commands, no response to painful stimulus. Penile ulcer noted under the foreskin laboratory and microbiology Laboratory Tests 10/22/25 01:46 Test 10/22/25 01:46 Range/Units Serum Glucose 146 H 74-106 mg/dL Microbiology Date/Time Source Procedure Growth Status 10/08/25 22:28 Urine - Rosales [place] Urine Culture - Final Complete 10/06/25 13:00 Sacrum Gram Stain - Final Resulted 10/06/25 13:00 Wound Culture - Preliminary Enterobacter cloacae Enterococcus faecalis - VRE Resulted 10/02/25 17:33 Blood Blood Culture - Final NO GROWTH AFTER 5 DAYS OF INCUBATION. Complete Labs and/or images reviewed: Labs reviewed by me, Image(s) reviewed by me Problem List/Assessment/Plan Problem List/Assessment/Plan Neurology # Sedated - Precedex at 0.3 mg # Encephalomalacia - Head CT 09/26/2025: Bilateral cerebral encephalomalacia # Global cerebral volume loss - Head CT 09/26/2025: Mild global cerebral volume loss # epilepsy - Oxycarbazepine - held # Concern for anoxic brain injury - Head CT 10/06/25: No acute intracranial hemorrhage or mass effect.Age indeterminate small infarct involving the right cerebellum, favored to be chronic. If there is clinical concern for acute infarct, recommend MRI for further evaluation.Chronic bilateral parietal and occipital lobe infarcts. - Despite being off sedation for 48 hours, patient still has no meaningful neurologic response. . Neurology has been consulted - unable to obtain MRI as per [employer] pacemaker leads are older generation and not MRI compatible. #History of CVA in 201210/10/25 CT head negative for acute process. - Neurology consult - Off sedation since 10/08 Cardiovascular #S/p Cardiac arrest with ROSC - 09/26/2025: Witnessed at dialysis center, bystanders started CPR and AED use, ROSC achieved before EMS arrived - 10/01/2025: Rhythm: Asystole, ROSC achieved after 7 minutes of CPR - 10/01/2025: Rhythm: Asystole, ROSC achieved after 11 minutes of CPR - 10/01/2025: Rhythm: Asystole, ROSC achieved after 2 minutes of CPR # Cardiogenic shock # Lactic acidosis likely due to above - wound culture growing Enterobacter cloacae MDR, VRE Enterococcus faecalis. - Levophed 2 mcg, now discontinued - Epinephrine has been discontinued # Acute on chronic HFrEF - BNP 1232.11 - Echocardiogram 08/22/2025: LVEF of 20-25%, Severe LV dysfunction, moderate mitral regurgitation - Per cardiology: Diuretics with lasix, aspirin, nitroglycerin SL - Lasix 40 mg IV daily - S/p pacemaker placement # Bilateral pleural effusion - Chest xray 10/12/2025: No significant interval change. #Hypertension - Amlodipine held by nephrology Respiratory # Acute hypoxic hypercapnic respiratory failure # pulmonary edema # Ventilator -Intubated (10/01/2025) -On [facility] vent : VCAC Mode RR 18 TV 450ml, PEEP Of 8 and FiO2 of 4045% - 8.0 endotracheal tube, 24 at the lip - Cutlures from sputum: Normal orophargyngeal elpidio GI # Peptic ulcer prophylaxis -Pantoprazole 40 mg IV daily # Rosales catheter draining clear urine placed on 10/09/2025 Nephrology # ESRD on hemodialysis - Received dialysis without complication and without pressor support on 10/13/2025 with 2 L removed - Strict Is and Os # Severe diabetic nephropathy #Acute metabolic alkalosis # Secondary hyperparathyroidism # Hypocalcemia - Monitor - Calcitrol # Hyperphosphatemia - Phosphate binders Infectious disease # 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 # Possible cellulitis secondary to lower extremity ulcers, , leg wound growing E coli # Complicated UTI growing MDR cloacae, VRE - IV linezolid, now discontinued - started patient on IV gentamicin per pharmacy, now discontinued - consulted infectious disease; per ID to discontinue systemic antibiotics likely colonization #Septic vs Cardiogenic shock - blood Cultures: Negative at 72 hours - Ceftriaxone 1 g IV daily, now discontinue Hem/onc #Thrombocytopenia, improved - Monitor #Normocytic anemia, likely due to chronic disease - Monitor Hand H - Per nephrology: Epogen 32653 SQ 3 weekly as tolerated Endocrine #Type 2 diabetes mellitus - SSI -Accu cheks MSK # Gout - Allopurinol 300 mg PO daily Skin # Circular ulcers present on right leg, present on admission # Possible Sacral Ulcer stage 2, present on admission - Wound culture: VRE - Meropenem 500 mg daily, discontinued - Linezolid 600 mg IV q 12 hours , now discontinued Marijuana use DVT prophylaxis: SCD PUD prophylaxis: Pantoprazole 40 mg IV daily Lines -R femoral central line: 10/01/2025, discontinued on 10/15/2025. - thigh PICC line placed on 10/15/2025 -Rosales catheter 10/09/2025 -ET tube: 10/01/2025 - Tunneled catheter in right pectoral region Patient has right femoral line given the presence of right tunnel catheter in right pectoral region and pacemaker in left field. We will give the patient more time for sedation to wear off for accurate neurological evaluation. Drips during [facility] ventilation Fentanyl Discontinued Propofol: dc'ed Bicarbonate drip discontinued Levophed discontinued Critical care time 82 minutes excluding procedure. Code status discussed greater than 20 minutes: DNR Detailed conversation held with patient's sister at bedside where prognosis was explained, per patient's sister would like to wait until Sunday before deciding for compassionate extubation versus tracheostomy. Plan discussed with Dr. Rivera Plan discussed with: Other (RN) Dietary Evaluation Review Comments: Nutrition Recommendation: 1) CCHO 75gm + renal standard diet 2) Pro-stat 1 pk BID 3) Nephro-nellie 1 tab daily 4) Monitor PO intake, lab values, weight trend, and I/O Expected Outcomes/Goals: Wound to improve Intake to meet >75% estimated needs FU 3-5 days Visit Coding STANDARD RES Billing Provider: JEREMIAH RIVERA MD Date of Service if different f: Oct 22, 2025 Common Visit Codes: 81677-[id number] CARE 30-74 MIN, [id number] CARE-EACH +30MIN YOBANI GOETZ RESIDENT Oct 22, 2025 13:43
[2025-10-22] MEDS: GLYCOPYRROLATE 0.2 MG/ML 1ML VIAL IV ONE (17:00)
--- NOTE | 2025-10-22 22:47 | DVHPN2 ---
Progress Note - Dictate Date Seen: Oct 22, 2025 Has the PT tested + for MRSA If YES, has PT been informed?: No Medical Necessity Reason Pt with a Central, PICC or Fol: Yes The following are medically ne: Central Line, Rosales Catheter Reason for rosales catheter: Strict I&O Subjective Patient was seen and evaluated in follow up in the ICU. Patient is intubated and sedated on ventilator. 30% FiO2. Patient received HD today. HGB 7.6, HCT 23.9, BUN 34, Fabric Sourcer 3.64. Chest x-ray shows unchanged multifocal airspace disease. vital signs Vital Sign Date Time Temp Pulse Resp B/P (MAP) Pulse Ox O2 Delivery O2 Flow Rate FiO2 10/22/25 22:03 67 18 129/62 (84) 99 30 10/22/25 18:00 Mechanical Ventilator+ 10/22/25 04:00 97.3 97.3 Total Intake and Output 10/21/25 10/21/25 10/22/25 15:00 23:00 07:00 Intake Total 179.2 ml 826.2 ml 509.3 ml Output Total 100 ml 50 ml Balance 179.2 ml 726.2 ml 459.3 ml medications Current Medications Medications Dose Ordered Sig/Esteban Route Start Time Stop Time Status Last Admin Dose Admin Diagnostic Test (Pha) 1 strip ACHS 09/26/25 22:00 10/22/25 17:00 1 STRIP Insulin Human Regular ACHS SC 09/26/25 22:00 10/22/25 12:13 2 UNITS Dextrose 50 ml UD PRN IV 09/26/25 21:15 Amino Acid Protein 30 ml BID PO 09/30/25 22:00 10/22/25 22:26 30 ML Multivit/Ca Carb/ B Cmplx/FA/Prenat 1 tab DAILY PO 09/30/25 11:12 10/22/25 09:22 1 TAB Albumin Human 100 ml @ 100 mls/hr ANABELLA PRN IV 10/03/25 09:45 10/07/25 17:42 100 MLS/HR Aspirin 81 mg DAILY NG 10/05/25 10:00 10/22/25 09:22 81 MG Enteral Nutritional Formula 1,000 ml 40ML/HR GT 10/04/25 18:30 10/20/25 23:12 1,000 ML Famotidine 10 mg HS IV 10/07/25 22:00 10/22/25 22:23 10 MG Albuterol 2.5 mg Q6HR NEB 10/08/25 12:00 10/22/25 18:21 2.5 MG Ipratropium [place] 0.5 mg Q6HR NEB 10/08/25 12:00 10/22/25 18:21 0.5 MG Artificial Tears 2 drop Q2HP PRN EACHEYE 10/08/25 14:30 Levetiracetam 100 ml @ 400 mls/hr BID IV 10/11/25 22:00 10/22/25 22:23 400 MLS/HR Lorazepam 1 mg Q5MINP PRN IV 10/11/25 21:00 Epoetin Mohan-epbx 10,000 unit MWF@2100 SC 10/12/25 21:00 Hold 10/19/25 21:57 10,000 UNIT Gentamicin Sulfate 0 ml @ 0 mls/hr PER PHARMACY IV 10/12/25 18:15 Cancel Sodium Chloride 10 ml QSHIFT@10,22 IV 10/15/25 22:00 10/22/25 22:24 10 ML Calcium Acetate 667 mg TIDWMEALS PO 10/18/25 18:00 10/22/25 18:03 667 MG Hydralazine HCl 10 mg Q6HP PRN IV 10/18/25 14:45 Acetaminophen 650 mg Q6HP PRN PO 10/21/25 13:00 Cancel objective GENERAL: Ill appearing, intubated on ventilator. Morbidly obese. EYES: PERRL, EOMI. Anicteric. HENT: Moist mucous membranes. LUNGS: Decreased breath sounds. CARDIOVASCULAR: Regular rate and rhythm. ABDOMEN: Soft, non-tender and non-distended. EXTREMITIES: No edema. SKIN: Warm, dry. laboratory and microbiology Laboratory Tests 10/22/25 01:46 Test 10/22/25 01:46 Range/Units Serum Glucose 146 H 74-106 mg/dL Problem List Acute syncopal episode. Status post cardiac arrest x3. ESRD on hemodialysis. Hypertension. Peripheral neuropathy. Severe peripheral artery disease. Acute on chronic congestive heart failure exacerbation. History of CVA. Anemia of chronic disease. Diabetes with severe diabetic nephropathy. History of pacemaker. Morbidly obese. Decompensated heart failure with ejection fraction less than 25%. Encephalomalacia. Hyperphosphatemia. Hyperparathyroidism. Assessment/Plan Continued all current supportive medical care. Aspirin. Nebulized breathing treatments. IV Hydralazine for SBP >180. Vasopressors for hemodynamic support. Additional plan as per the hospital course. Critical care time of 45 minutes provided to include time spent evaluation of patient at bedside, when appropriate patient/family education for diagnosis, treatment plan, review of pertinent medical information and discussion of care with specialty providers and PCP. Mechanical ventilator parameters, treatment and adjustments have personally been reviewed by me and treatment plan by salad bar clerk has also been reviewed. Dietary Evaluation Review Comments: Nutrition Recommendation: 1) CCHO 75gm + renal standard diet 2) Pro-stat 1 pk BID 3) Nephro-nellie 1 tab daily 4) Monitor PO intake, lab values, weight trend, and I/O Expected Outcomes/Goals: Wound to improve Intake to meet >75% estimated needs FU 3-5 days Plan discussed with: Other MATTHEW CIFUENTES MD Oct 22, 2025 22:47
[2025-10-22] MEDS: EPOETIN ALFA-EPBX 10,000 UNIT/1ML VIAL SC ONE (23:00)
--- NOTE | 2025-10-22 23:40 | DVHPN2 ---
Consult Progress Note Objective vital signs Vital Sign Date Time Temp Pulse Resp B/P (MAP) Pulse Ox O2 Delivery O2 Flow Rate FiO2 10/22/25 22:03 67 18 129/62 (84) 99 30 10/22/25 18:00 Mechanical Ventilator+ 10/22/25 04:00 97.3 97.3 Total Intake and Output 10/21/25 10/21/25 10/22/25 15:00 23:00 07:00 Intake Total 179.2 ml 826.2 ml 509.3 ml Output Total 100 ml 50 ml Balance 179.2 ml 726.2 ml 459.3 ml medications Current Medications Medications Dose Ordered Sig/Esteban Route Start Time Stop Time Status Last Admin Dose Admin Diagnostic Test (Pha) 1 strip ACHS 09/26/25 22:00 10/22/25 22:00 1 STRIP Insulin Human Regular ACHS SC 09/26/25 22:00 10/22/25 12:13 2 UNITS Dextrose 50 ml UD PRN IV 09/26/25 21:15 Amino Acid Protein 30 ml BID PO 09/30/25 22:00 10/22/25 22:26 30 ML Multivit/Ca Carb/ B Cmplx/FA/Prenat 1 tab DAILY PO 09/30/25 11:12 10/22/25 09:22 1 TAB Albumin Human 100 ml @ 100 mls/hr ANABELLA PRN IV 10/03/25 09:45 10/07/25 17:42 100 MLS/HR Aspirin 81 mg DAILY NG 10/05/25 10:00 10/22/25 09:22 81 MG Enteral Nutritional Formula 1,000 ml 40ML/HR GT 10/04/25 18:30 10/20/25 23:12 1,000 ML Famotidine 10 mg HS IV 10/07/25 22:00 10/22/25 22:23 10 MG Albuterol 2.5 mg Q6HR NEB 10/08/25 12:00 10/22/25 18:21 2.5 MG Ipratropium [place] 0.5 mg Q6HR NEB 10/08/25 12:00 10/22/25 18:21 0.5 MG Artificial Tears 2 drop Q2HP PRN EACHEYE 10/08/25 14:30 Levetiracetam 100 ml @ 400 mls/hr BID IV 10/11/25 22:00 10/22/25 22:23 400 MLS/HR Lorazepam 1 mg Q5MINP PRN IV 10/11/25 21:00 Epoetin Mohan-epbx 10,000 unit MWF@2100 SC 10/12/25 21:00 Hold 10/19/25 21:57 10,000 UNIT Gentamicin Sulfate 0 ml @ 0 mls/hr PER PHARMACY IV 10/12/25 18:15 Cancel Sodium Chloride 10 ml QSHIFT@10,22 IV 10/15/25 22:00 10/22/25 22:24 10 ML Calcium Acetate 667 mg TIDWMEALS PO 10/18/25 18:00 10/22/25 18:03 667 MG Hydralazine HCl 10 mg Q6HP PRN IV 10/18/25 14:45 Acetaminophen 650 mg Q6HP PRN PO 10/21/25 13:00 Cancel laboratory and microbiology Laboratory Tests 10/22/25 01:46 Test 10/22/25 01:46 Range/Units Serum Glucose 146 H 74-106 mg/dL Problem List/Assessment/Plan Problem List/Assessment/Plan ASSESSMENT AND PLAN: ID Problem List: \-- Ijw-rc-gestjkzf cardiac arrest at dialysis center with bystander CPR and AED shock \-- In-hospital bradycardia/asystolic arrest during hemodialysis on 10/01 with prolonged CPR and defibrillation \-- Acute hypoxic respiratory failure requiring mechanical ventilation \-- Multifocal pulmonary airspace disease and pulmonary vascular congestion (pulmonary edema/contusions) after multiple CPR events and underlying CHF \-- CKD on chronic hemodialysis (reported schedule Sunday//Sunday) \-- CHF \-- Diabetes mellitus \-- Hypertension \-- History of stroke \-- Pacemaker in situ (triple-lead on CXR) \-- Chronic thrombocytopenia (platelets progressively decreased from ~115K on admission to 60K on 10/01; most recent ~89K) \-- Sacrococcygeal pressure ulcer (full-thickness, granulating, no drainage/odor) \-- Right anterior ulcer (granulating, no drainage/edema) \-- Multiple left plantar blood-filled blisters and calluses (no deep tissue involvement) \-- Scattered skin ulcers/eschar likely related to peripheral arterial disease and pressure injuries \-- Wound culture (10/06) with VRE and carbapenem-resistant Enterobacter (CRE), currently felt to represent colonization \-- Pneumonia vs pulmonary edema/contusions treated empirically with ceftriaxone clindamycin, later meropenem \-- Current antibiotic regimen: linezolid + gentamicin per pharmacy at the time of this consult Assessment: Theo Zamora is a 59-year-old male with CKD on chronic hemodialysis (//Sun), CHF, history of stroke, diabetes, and hypertension who initially had a syncopal episode and cardiac arrest at the dialysis center. He received bystander CPR and AED shock; on EMS arrival he was awake, alert, and oriented x4 (GCS 15) but had chest wall pain. Initial evaluation showed leukocyte count 7.5, hemoglobin 9.8, platelets 115K, sodium 142, BUN 43, creatinine 6.85. CT head revealed no acute intracranial hemorrhage or mass effect but did show chronic encephalomalacia and chronic microvascular ischemic changes. CXR showed a triple-lead pacemaker and bilateral airspace opacities and pleural effusions without fractures, interpreted as pulmonary contusions and congestion. He was admitted to telemetry and subsequently developed a second arrest on 10/01 while on hemodialysis, with bradycardia progressing to asystole. He received chest compressions for 14 minutes and defibrillation at approximately 14 minutes 22 seconds. Post-code lactic acid was 5.7, improving to 1.9 after return of circulation and fluid resuscitation. Labs on 10/01: WBC 7.2, hemoglobin 8.6, platelets 60K, sodium 140, potassium 4.6, BUN 51, creatinine 7.46, glucose 100, liver enzymes unremarkable. He required intubation and mechanical ventilation (FiO2 50%, PEEP 5 initially), vasopressor support with norepinephrine (Levophed), and empiric antibiotics (ceftriaxone for pneumonia coverage; clindamycin for pneumonia and skin injuries). Respiratory cultures on 10/01 showed normal respiratory elpidio; cultures on 10/02 showed no growth to date. CXR and KUB showed colonic distension with NG tube in the stomach, and moderate multifocal bilateral pulmonary airspace disease with pulmonary vascular congestion. Vasopressor requirements gradually improved and were discontinued; he has now been off pressors for approximately 5 days. FiO2 has improved to 30% with PEEP 5, though CXR continues to show unchanging multifocal airspace disease. On exam he has multiple skin injuries, including a sacrococcygeal full-thickness ulcer (2.5 x 0.2 cm) with healthy granulation tissue and no odor or significant drainage, and a right anterior ulcer (3 x 4 cm) with healthy granulation and epithelium, no drainage, exudate, or surrounding swelling/edema. Eschar is noted on toes and ankle in areas of prior ulcers/ischemic disease. There are multiple left plantar foot blood-filled blisters and calluses; de-roofed blisters reveal intact underlying skin with no deeper edema or induration. These injuries are thought to be related to peripheral arterial disease, pressure, and thrombocytopenia-related skin fragility. Wound care is being provided. A wound culture on 10/06 grew VRE and a multidrug-resistant Enterobacter (carbapenem-resistant), sensitive only to gentamicin. Current antibiotics include linezolid and gentamicin per pharmacy. Clinically, there are no signs of cellulitis at the wound sites, no diarrhea, no reports of new drainage or local changes, and no ongoing hemodynamic instability or other signs of sepsis. The VRE and Enterobacter are felt to represent colonization of chronic wounds rather than active invasive infection at this time. Given his advanced CKD on dialysis and chronic thrombocytopenia (platelets <100K), the risks of gentamicin (nephrotoxicity/ototoxicity in a dialysis patient) and linezolid (worsening thrombocytopenia) likely outweigh the benefits in the absence of clear evidence of active systemic infection. 10/13: hemodynamically stable off antibiotics 10/14: urine culture w. rosales catheter sampled oliguric urine growing VRE and enterobacter - consistent with colonization Plan: 0. will continue to monitor patient off all antibiotics 1\. Wound colonization with VRE and CRE Enterobacter (no current evidence of invasive infection): \-- Wound culture (10/06) with VRE and carbapenem-resistant Enterobacter likely represents colonization of chronic pressure/ischemic ulcers rather than active infection based on current exam (granulation tissue, lack of drainage, lack of surrounding erythema/edema, no systemic signs of sepsis). // Likewise, urine sample from oliguric patient sampled from a rosales catheter placed at time of admission would like represent stagnant urine breeding colonized bacteria. \-- Recommend stop all systemic antibiotics at this time, including linezolid and gentamicin, given: Lack of clinical evidence for active invasive infection High risk of ototoxicity/nephrotoxicity from gentamicin in a dialysis patient Risk of worsening thrombocytopenia with linezolid in a patient with platelets <100K \-- Continue meticulous local wound care as per wound care nursing and primary team. \-- Monitor wounds closely for any new drainage, malodor, increased pain, erythema, warmth, or expansion, which would raise concern for superimposed infection. 2\. Acute hypoxic respiratory failure; multifocal airspace disease (pulmonary edema/contusions; possible pneumonia): \-- Currently mechanically ventilated with FiO2 ~30% and PEEP 5; off vasopressors for ~5 days. \-- Continue ventilator weaning as tolerated per ICU/primary team. \-- Continue aggressive volume management and diuresis in concert with hemodialysis to address pulmonary edema as seen on CXR. \-- At present, respiratory cultures show only normal elpidio or no growth; there are no clear signs of active, progressive pneumonia distinct from pulmonary edema/contusion. \-- If clinical concern for sepsis or worsening pneumonia arises (e.g., new fever, leukocytosis, rising vasopressor requirement, worsening oxygenation, hypotension, new purulent secretions): Obtain repeat sputum culture from a tracheal aspirate or tracheal wash. Reinitiate empiric therapy for hospital-acquired pneumonia. Options discussed include: Piperacillin-tazobactam (Zosyn) or cefepime for Pseudomonas and broad gram-negative coverage. At this time, VRE and carbapenem-resistant Enterobacter from the sacral wound are not felt to be significantly contributing to the pulmonary process or overall clinical picture, and targeted therapy against these organisms is not recommended absent evidence of invasive disease. 3\. Chronic kidney disease on hemodialysis; risk of electrolyte-related arrhythmia and arrest: \-- Continue scheduled hemodialysis (reported Sunday//Sunday) with careful monitoring of potassium and other electrolytes, especially in the olga- dialysis period given prior arrest during hemodialysis. \-- Avoid nephrotoxic antibiotics where possible; specifically recommend discontinuation of gentamicin as above. \-- Continue close hemodynamic and rhythm monitoring during dialysis sessions. 4\. Chronic thrombocytopenia: \-- Platelet count has declined from ~115K on admission to as low as 60K, with recent level around 89K. \-- Avoid linezolid in the setting of chronic thrombocytopenia where possible, as recommended above. \-- Monitor platelet counts serially. \-- Transfusion and further hematologic evaluation to be directed by the primary/ICU team. 5\. Skin ulcers, pressure injuries, and ischemic lesions: \-- Continue dedicated wound care with: Sacrococcygeal ulcer (2.5 x 0.2 cm, full thickness, granulating, no drainage/odor). Right anterior ulcer (3 x 4 cm, healthy granulation and epithelium, no drainage or surrounding edema). Eschar on toes and ankle at prior ulcer/ischemic sites. Multiple left plantar blood-filled blisters and calluses, with blisters de-roofed to healthy underlying tissue and no deep edema or induration. \-- Maintain offloading and repositioning strategies to avoid further pressure on sacrum and other bony prominences; defer specific dressing and positioning regimens to wound care nursing. \-- No systemic antibiotics indicated for these wounds at present, in the absence of cellulitis or systemic signs of infection. 6\. Cardiovascular status; postcardiac arrest care: \-- He has had two significant cardiac events ([id number]-kj-[id number] arrest at dialysis center; in-hospital asystolic arrest during hemodialysis). \-- Etiology remains unclear but may be related in part to electrolyte shifts in the setting of CKD on dialysis and underlying structural heart disease (CHF, pacemaker in place). \-- Currently off vasopressors with stable blood pressures per transcript. \-- Continue telemetry and standard postcardiac arrest care as directed by ICU/cardiology teams. \-- No additional ID-specific interventions beyond those noted. 7\. Diabetes mellitus, hypertension, CHF, history of stroke: \-- Management to be continued by primary and consulting services. \-- From an ID standpoint, these comorbidities increase risk of poor wound healing and infection; reinforce close monitoring of wounds and careful glycemic and volume control. Isolation Precautions: \-- Isolation precautions: Not specified in transcript. (Given colonization with VRE and carbapenem-resistant Enterobacter, facility policies on contact precautions should be followed as per hospital protocol; defer to hospital infection prevention team.) Plan is subject to change pending incorporation of new incoming information/diagnostics. Updates may be added as an addendum at the bottom (or top) of this note. Infectious Disease will continue to follow. Please contact the ID service with any new questions or concerns. Electronically signed by: Lc Huston MD, 10/13/2025 Authorized and Performed by: lc huston Md Total critical care time: Approximately 66 minutes Due to a high probability of clinically significant, life threatening deterioration, the patient required my highest level of preparedness to intervene emergently and I personally spent this critical care time directly and personally managing the patient. This critical care time included obtaining a history; examining the patient; pulse oximetry; ordering and review of studies; arranging urgent treatment with development of a management plan; evaluation of patient's response to treatment; frequent reassessment; and, discussions with other providers. This critical care time was performed to assess and manage the high probability of imminent, life-threatening deterioration that could result in multi-organ failure. It was exclusive of separately billable procedures and treating other patients and teaching time. Physical Exam: General: NAD Neck: Supple. No masses. HEENT: PERRL. Normal lids and conjunctiva. Moist mucous membranes. Oropharynx without lesions, exudates or excessive erythema. Normal appearance of the external aspects of the nose and ears. Heart: Regular rhythm, normal rate. No murmur. No lower extremity edema. Lungs: Normal respiratory effort. Clear to auscultation bilaterally. No wheezes. No crackles. Mechanically ventilated via endotracheal tube; most recent settings in transcript: FiO2 approximately 30%, PEEP 5 cm H?O. Abdomen: Soft. Non-tender. Non-distended. No masses or abdominal hernia. Msk: No digital cyanosis. Normal strength and tone in all 4 limbs. Chest wall tenderness and bruising present, consistent with recent CPR. Skin: Warm and dry, no rashes. Sacrococcygeal ulcer approximately 2.5 x 0.2 cm, full-thickness wound with healthy granulation tissue, no odor or significant drainage. Right anterior ulcer approximately 3 x 4 cm with healthy granulation tissue and epithelium, no drainage, exudate, or surrounding swelling/edema. Eschar noted on toes and ankle in areas of prior ulcers/ischemic disease. Multiple left plantar foot blood-filled blisters and calluses; blisters de- roofed with intact underlying skin, no signs of deeper edema or induration. Scattered skin ulceration and tissue injury consistent with peripheral arterial disease and pressure injury. Neuro: Alert. No facial droop or slurred speech. Extra-ocular movements intact. Sensation intact to soft touch in all 4 limbs. Psych: Appropriate mood. Full affect. Oriented to person, place, time, and situation. Dietary Evaluation Review Comments: Nutrition Recommendation: 1) CCHO 75gm + renal standard diet 2) Pro-stat 1 pk BID 3) Nephro-nellie 1 tab daily 4) Monitor PO intake, lab values, weight trend, and I/O Expected Outcomes/Goals: Wound to improve Intake to meet >75% estimated needs FU 3-5 days LC HUSTON MD Oct 22, 2025 23:40
--- NOTE | 2025-10-22 23:43 | DVHPN2 ---
[facility] DOS: 10/22/2025 Patient seen and examined at bedside. Intubated on mechanical ventilator. Overnight events reviewed. Reviewed: Care Plan, H&P, Labs, Medications, Previous Orders, Radiology Changes from previous H/P or p: No Changes Eyes: No Pain, No Vision change, No Conjunctivae inflammation, No Eyelid inflammation, No Other, No Redness ENT: No Ear pain, No Ear discharge, No Nose pain, No Nose discharge, No Nose congestion, No Mouth pain, No Mouth swelling, No Throat pain, No Throat swelling, No Other Cardiovascular: Chest Pain; No Palpitations, No Orthopnea, No Paroxysmal Noc. Dyspnea, No Edema, No Lt Headedness, No Other Respiratory: No Cough, No Dry, No Shortness of breath, No SOB with excertion, No Wheezing, No Hemoptysis, No Pleuritic Pain, No Sputum, No Other Gastrointestinal: No Nausea, No Vomiting, No Abdominal Pain, No Diarrhea, No Constipation, No Melena, No Hematochezia, No Other Genitourinary: No Dysuria, No Frequency, No Incontinence, No Hematuria, No Retention; Other (On hemodialysis) Musculoskeletal: No other, No neck pain, No shoulder pain, No arm pain, No back pain, No hand pain, No leg pain, No foot pain Skin: No Rash, No Lesions, No Jaundice, No Bruising, No Other Objective Vitals Vital Signs Date Time Temp Pulse Resp B/P (MAP) Pulse Ox O2 Delivery O2 Flow Rate FiO2 10/22/25 22:03 67 18 129/62 (84) 99 30 10/22/25 18:00 Mechanical Ventilator+ 10/22/25 04:00 97.3 97.3 Intake/Output Intake and Output 10/22/25 07:00 Intake Total 1514.7 ml Output Total 150 ml Balance 1364.7 ml Intake Oral 200 ml IV Total 427.7 ml Tube Feeding 887 ml Output Urine Total 125 ml Stool Total 25 ml Exam Gen.: Patient lying in bed in medical ICU. Intubated on mechanical ventilator. Head: Normocephalic, atraumatic. Eyes: PERRLA. Ears: Normal external anatomy. Throat: Endotracheal tube and orogastric tube in place. Neck: Supple, trachea midline. Chest: Transmitted breath sounds bilaterally. Decreased air entry bilaterally. No wheezing. Bibasilar crackles. Cardiovascular: Positive S1, positive S2. Regular rate and rhythm. Abdomen: Positive bowel sounds in all 4 quadrants. Soft, nontender, nondistended. : Salas in place. Normal external genitalia. Rectal: Deferred. Skin: Warm, dry. Intact. Extremities: 2+ radial pulses bilaterally. No lower extremity edema. Neuro: Off sedation Medications Current Medications Medications Dose Ordered Sig/Esteban Route Start Time Stop Time Status Last Admin Dose Admin Diagnostic Test (Pha) 1 strip ACHS 09/26/25 22:00 10/22/25 22:00 1 STRIP Insulin Human Regular ACHS SC 09/26/25 22:00 10/22/25 12:13 2 UNITS Dextrose 50 ml UD PRN IV 09/26/25 21:15 Amino Acid Protein 30 ml BID PO 09/30/25 22:00 10/22/25 22:26 30 ML Multivit/Ca Carb/ B Cmplx/FA/Prenat 1 tab DAILY PO 09/30/25 11:12 10/22/25 09:22 1 TAB Albumin Human 100 ml @ 100 mls/hr ANABELLA PRN IV 10/03/25 09:45 10/07/25 17:42 100 MLS/HR Aspirin 81 mg DAILY NG 10/05/25 10:00 10/22/25 09:22 81 MG Enteral Nutritional Formula 1,000 ml 40ML/HR GT 10/04/25 18:30 10/20/25 23:12 1,000 ML Famotidine 10 mg HS IV 10/07/25 22:00 10/22/25 22:23 10 MG Albuterol 2.5 mg Q6HR NEB 10/08/25 12:00 10/22/25 18:21 2.5 MG Ipratropium [place] 0.5 mg Q6HR NEB 10/08/25 12:00 10/22/25 18:21 0.5 MG Artificial Tears 2 drop Q2HP PRN EACHEYE 10/08/25 14:30 Levetiracetam 100 ml @ 400 mls/hr BID IV 10/11/25 22:00 10/22/25 22:23 400 MLS/HR Lorazepam 1 mg Q5MINP PRN IV 10/11/25 21:00 Epoetin Mohan-epbx 10,000 unit MWF@2100 NH 10/12/25 21:00 Hold 10/19/25 21:57 10,000 UNIT Gentamicin Sulfate 0 ml @ 0 mls/hr PER PHARMACY IV 10/12/25 18:15 Cancel Sodium Chloride 10 ml QSHIFT@10,22 IV 10/15/25 22:00 10/22/25 22:24 10 ML Calcium Acetate 667 mg TIDWMEALS PO 10/18/25 18:00 10/22/25 18:03 667 MG Hydralazine HCl 10 mg Q6HP PRN IV 10/18/25 14:45 Acetaminophen 650 mg Q6HP PRN PO 10/21/25 13:00 Cancel Laboratory Results Laboratory Tests 10/22/25 01:46 Chemistry Test 10/22/25 01:46 Calcium Level 9.0 mg/dL (8.7-10.4) Urinalysis Test 10/08/25 22:28 Urine Color Dark-brown (Yellow) Urine Clarity Ex.turbid (Clear) Urine pH 6.0 (5.0-9.0) Urine Specific [place] 1.017 (1.001-1.035) Urine Protein 2+ (Negative) H Urine Ketones Negative (Negative) Urine Blood 3+ /uL (Negative) H Urine Nitrite Negative (Negative) Urine Bilirubin Negative (Negative) Urine Urobilinogen Normal mg/dL (Negative) Urine Leukocyte Esterase 3+ /uL (Negative) Urine RBC 320 /hpf (0 - 3) Urine WBC Clumps Present /hpf (None Seen) Urine Microscopic WBC 1809 /HPF (0-3) H Urine Squamous Epithelial Cells Many /hpf (<5) Urine Amorphous Crystals Few /hpf (None Seen) Urine Bacteria Many /hpf (None Seen) H Urine Mucus Few (None Seen) Urine Glucose Normal mg/dL (Normal) Blood Gas Results Test 10/22/25 10:15 Arterial Blood pH 7.458 (7.350-7.450) FiO2 % 30.0 Microbiology Microbiology Date/Time Source Procedure Growth Status 10/08/25 22:28 Urine - [place] Urine Culture - Final Complete 10/06/25 13:00 Sacrum Gram Stain - Final Resulted 10/06/25 13:00 Wound Culture - Preliminary Enterobacter cloacae Enterococcus faecalis - VRE Resulted 10/02/25 17:33 Blood Blood Culture - Final NO GROWTH AFTER 5 DAYS OF INCUBATION. Complete Assessment/Plan Assessment/Plan Impression: Acute hypoxic respiratory failure On mechanical ventilator Lactic acidosis S/p cardiac arrest Acute on chronic CHF ESRD, on hemodialysis DM type II Shock Morbid obesity Cellulitis Sacral ulcer Events: Remains on vent support On AC mode; RR 18, VT 450, PEEP 5, FiO2 40% Off sedation since 10/08/25 On Precedex drip Head of bed elevation Aspiration precautions Glycopyrrolate PRN for increased oral secretions. ABG notable for alkalemia Chest x-ray shows unchanged multifocal airspace disease and low lung volumes. S/p hemodialysis, removed 3 liters. Off pressors, hemodynamically stable. Patient noted to have increased pressor requirements during HD. Continue hemodialysis per Nephrology Monitor hemoglobin - currently 7.6 g/dL. Transfuse if less than 7.0 g/dL. Continue bronchodilators Completed antibiotics Antiepileptic with Keppra Hemodialysis per Nephrology Follow up Nephrology recs Monitor renal function Salas was exchanged 10/09. Tube feeds for nutritional support Wound care Patient has poor prognosis. Follow up on family discussion regarding goals of care. CT head revealed no acute intracranial abnormality. 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 Likely chronic right cerebellar infarct. KUB showed nonobstructive bowel gas pattern. Labs and imaging reviewed. Rest of plan as noted below. Plan: s/p intubation on mechanical ventilator. On AC mode; RR 18, VT 450, PEEP 5, FiO2 40% Titrate FIO2 to keep O2 saturation above 90%. VAP bundle. Daily ABG and CXR while intubated Pressors as necessary for hemodynamic support Titrate to keep mean arterial pressure greater than 65 mmHg. Antibiotics. Follow up cultures. HD per Nephrology Diurese to euvolemia Monitor renal function Monitor electrolytes. Supplement as necessary. Monitor ins and outs. Recommend judicious use of fluids due to CHF. Wound care Monitor lactic acid. Obesity complicates all care GI prophylaxis. DVT prophylaxis. Prognosis: Poor given patient's multiple co-morbidities. Condition: Critical Rest of plan per hospitalist and other consultants. A total of 35 minutes of critical care time was spent reviewing the patient record, examining the patient, making a diagnostic and therapeutic plan, discussing this plan with the medical personnel, following up on diagnostic studies and following the patient for clinical stability excluding any and all procedures. At least 50% of this time was spent in direct, [id number] contact. Thank you, Dr. Cantu, for allowing me to participate in this patient's care. Further recommendations will depend on the patient's clinical course. Please do not hesitate to contact me if you have any questions or concerns. This medical document was created using an electronic medical record system with [employer] dictation system. Although these documentations are being carefully reviewed, there may still be some phonetic and typographical changes. The errors are purely typographical, due to imperfection on the software program, and do not reflect any compromise in the patient's medical care. Plan discussed with: Other (JOYCE Taylor) Visit Coding Pulmonary Billing Provider: JEREMIAH GAMEZ MD Date of Service if different f: Oct 22, 2025 Common Visit Codes: [id number] INP/OBS CARE(HIGH), [id number] CARE 30-74 MIN JEREMIAH GAMEZ MD Oct 22, 2025 23:43
[2025-10-23] VITALS (104 sets, daily range): BP systolic 113–162; BP diastolic 47–95; PULSE 63–87; RESP 9–22; TEMP 97.6–98.8; O2SAT 96–100
[2025-10-23 03:39] LABS: Hematocrit 24.9 % (41.0-53.0); Hemoglobin 7.9 g/dL (13.5-17.5); Mean Corpuscular Hemoglobin 31.4 pg (28.0-32.0); Mean Corpuscular Volume 98.5 fL (80.0-100.0); Nucleated Red Blood Cells % 0.0 %
[2025-10-23 03:43] LABS: Chloride 102 mmol/L (98-107); Potassium 3.6 mmol/L (3.5-5.1); Sodium 141 mmol/L (136-145)
[2025-10-23 03:44] LABS: Anion Gap 9 (5-15); Calcium 9.1 mg/dL (8.7-10.4); Carbon Dioxide 30 mmol/L (20-31)
[2025-10-23 03:49] LABS: BUN/Creatinine Ratio 8.3 (10.0-20.0)
[2025-10-23 03:53] LABS: Blood Urea Nitrogen 25 mg/dL (9-23); Glucose 156 mg/dL (74-106)
--- NOTE | 2025-10-23 05:04 | DVH ---
CHEST RADIOGRAPH Indication: intubated Technique: Single frontal view of the chest was obtained COMPARISON: XY CHEST PORTABLE on DOS: 10/22/25, XY CHEST PORTABLE on DOS: 10/21/25, XY CHEST PORTABLE on DOS: 10/20/25, XY CHEST PORTABLE on DOS: 10/19/25, XY CHEST PORTABLE on DOS: 10/18/25 FINDINGS: Lines and Tubes: Endotracheal tube, enteric catheter, tunneled right central venous catheter and left chest pacemaker in satisfactory position. Lungs: Unchanged multifocal airspace disease. Pleura: No effusion. No pneumothorax. Cardiomediastinal contours: Unremarkable Bones: Unremarkable IMPRESSION: Lines and tubes in satisfactory position. No significant interval change.
[2025-10-23 07:57] LABS: Base Excess 5.2 mmol/L (-2.0-3.0)
--- NOTE | 2025-10-23 08:15 | DVHPNRES ---
Progress Note Date Seen: Oct 23, 2025 Resident Creating Document: YOBANI GOETZ RESIDENT Has the PT tested + for MRSA If YES, has PT been informed?: No Medical Necessity Reason Pt with a Central, PICC or Fol: Yes The following are medically ne: Central Line, Rosales Catheter Reason for rosales catheter: Strict I&O Subjective Review of Systems Mr. Zamora is a 59 year old male with PMHx of ESRD with recent initiation of dialysis approximately 2 weeks ago , HFrEF with pacemaker placement, CVA in 2012, type 2 diabetes mellitus, gout, and hypertension, who presented to [facility] due to witnessed cardiopulmonary arrest during dialysis on 09/26/2025. At the time of evaluation the patient is sedated and intubated, majority of history is taken from previous medical record and his sister, Claudia Burnett. Per record, the patient became unresponsive during hemodialysis, CPR was intiated by bystanders and AED was used, by the time EMS arrived on scene the patient was found A&Ox4, GCS15, and moaning in pain. On evaluation in the ED, patient was complaining of dyspnea and chest wall pain. He was afebrile, normocardic with pacedc rhythm, hypertensive, and saturating adequately on room air. EKG showed paced rhythm with widened QTc. Initial labs are significant for normocytic anemia, hypokalemia, creatinine 6.85, BUN 43, and BNP 1232.11. Troponins were negative. UA without alteration. Chest xray significant for lungs with bilateral patchy airspace opacities, prominent pulmonary vasculature, with small bilateral pleural effusions. Head CT shows bilateral cerebral encephalomalacia and mild global cerebral volume loss without intracranial hemorrhage or mass effect. The patient was started on IV diuresis and admitted for further work up and managment. He was evaluated by cardiology who continued diuresis. The patient was evaluated by nephrology who state that given diminished cardiac function likely patient cannot tolerate large ultrafiltration goals. He was scheduled for further dialysis, having undergone dialysis on 09/28/2025 without issue. He was receiving dialysis on 10/01/2025 when he became bradycardic and went into asystole. Code blue was called and CPR was intiated with ROSC achieved after 7 minutes of CPR. He was transferred to the ICU and he entered asystole two more times in a span of 15 minutes a with ROSC achieved after 11 minutes of CPR and at 2 minutes of CPR respectively. He was intubated and started on pressors, sedation, antibiotics, and bicarbonate drip. On initial evaluation in the ICU, the patient is intubated, sedated, and mechanically ventilated, on levophed 2 mcg, pupils are reactive, no response to painful stimulus, cough and gag are present. Labs are significant for normocytic anemia, worsening thrombocytopenia, and worsening renal function. ABG is significant for metabolic alkalosis. Most recent chest xray shows worsening congestion. Past medical history: ESRD on dialysis, HFrEF, CVA in 2012, Type 2 diabetes mellitus, and hypertension Past surgical history: Pacemaker placement and replacement, Right femoral fracture repair Allergies: Denies Social: Per sister, the patient currently smokes marijuana, denies other drug use. Patient currently lives with his mother and his brother. Home meds: Famotidine, Allopurinol, pregabalin, furosemide, sevelamer, metoprolol, and lokelma 10/23/2025: Patient seen and examined at bedside, physical exam largely unremarkable except patient withdrawing to pain, pupils remain and reactive. Planned to compassionately extubate and then potential board and care with hospice. Objective vital signs Vital Sign Date Time Temp Pulse Resp B/P (MAP) Pulse Ox O2 Delivery O2 Flow Rate FiO2 10/23/25 07:00 75 19 144/64 (90) 100 10/23/25 06:56 30 10/23/25 05:35 Mechanical Ventilator+ 10/23/25 03:45 97.6 97.6 Total Intake and Output 10/22/25 10/22/25 10/23/25 15:00 23:00 07:00 Intake Total 165.76 ml 765.68 ml 457.4 ml Output Total 5 ml 50 ml Balance 165.76 ml 760.68 ml 407.4 ml medications Current Medications Medications Dose Ordered Sig/Esteban Route Start Time Stop Time Status Last Admin Dose Admin Diagnostic Test (Pha) 1 strip ACHS 09/26/25 22:00 10/23/25 06:04 1 STRIP Insulin Human Regular ACHS SC 09/26/25 22:00 10/23/25 06:04 2 UNITS Dextrose 50 ml UD PRN IV 09/26/25 21:15 Amino Acid Protein 30 ml BID PO 09/30/25 22:00 10/22/25 22:26 30 ML Multivit/Ca Carb/ B Cmplx/FA/Prenat 1 tab DAILY PO 09/30/25 11:12 10/22/25 09:22 1 TAB Albumin Human 100 ml @ 100 mls/hr ANABELLA PRN IV 10/03/25 09:45 10/07/25 17:42 100 MLS/HR Aspirin 81 mg DAILY NG 10/05/25 10:00 10/22/25 09:22 81 MG Enteral Nutritional Formula 1,000 ml 40ML/HR GT 10/04/25 18:30 10/20/25 23:12 1,000 ML Famotidine 10 mg HS IV 10/07/25 22:00 10/22/25 22:23 10 MG Albuterol 2.5 mg Q6HR NEB 10/08/25 12:00 10/23/25 06:55 2.5 MG Ipratropium [place] 0.5 mg Q6HR NEB 10/08/25 12:00 10/23/25 06:55 0.5 MG Artificial Tears 2 drop Q2HP PRN EACHEYE 10/08/25 14:30 Levetiracetam 100 ml @ 400 mls/hr BID IV 10/11/25 22:00 10/22/25 22:23 400 MLS/HR Lorazepam 1 mg Q5MINP PRN IV 10/11/25 21:00 Epoetin Mohan-epbx 10,000 unit MWF@2100 SC 10/12/25 21:00 Hold 10/19/25 21:57 10,000 UNIT Gentamicin Sulfate 0 ml @ 0 mls/hr PER PHARMACY IV 10/12/25 18:15 Cancel Sodium Chloride 10 ml QSHIFT@10,22 IV 10/15/25 22:00 10/22/25 22:24 10 ML Calcium Acetate 667 mg TIDWMEALS PO 10/18/25 18:00 10/22/25 18:03 667 MG Hydralazine HCl 10 mg Q6HP PRN IV 10/18/25 14:45 Acetaminophen 650 mg Q6HP PRN PO 10/21/25 13:00 Cancel Examination General: Patient is intubated, mechanically ventilated, somewhat-reactive to painful stimulus HEENT: Normocephalic, atraumatic, 3 mm very sluggish, no EOM, eyes open and moving, unable to track objects, ET tube in place, orogastric tube in palce Respiratory/pulmonary: Bilateral chest expansion, decreased breath sounds bilaterally, wheezing in bilateral upper lobes Cardiovascular: Normal RRR Abdomen: Obese, Abdomen nondistended, normal bowel sounds no grimacing is observed on palpation, no palpable masses. Extremities: No deformities, bilateral lower extremity pedal edema 2+ up to upper thighs, with scrotal swelling, large red circular ulcers present in right calf, presence of femoral CVC in right groin region, pulses are present, blisters present on left forearm. Left lower extremity superficial ulcer on the lateral aspect of the leg. Right lower extremity 2 superficial ulcers 1 on the medial leg and 1 on the dorsal foot. Skin: Saccrococcyx 2.5x1.2x0.5cm, moist, open, full-thickness wound with moist red granulation tissue in the wound base and a mix of pale pink collagen scar tissue and dark brown adhered eschar material on the periwound area, there is minimal odor., darkened eschar lesions on his toes Neurological: hypoactive Gag and cough noted, patient blinks but does not track movements with his eyes, does not respond to verbal commands, no response to painful stimulus. Penile ulcer noted under the foreskin laboratory and microbiology Laboratory Tests 10/23/25 03:02 Test 10/23/25 03:02 Range/Units Serum Glucose 156 H 74-106 mg/dL Microbiology Date/Time Source Procedure Growth Status 10/08/25 22:28 Urine - [place] Urine Culture - Final Complete 10/06/25 13:00 Sacrum Gram Stain - Final Resulted 10/06/25 13:00 Wound Culture - Preliminary Enterobacter cloacae Enterococcus faecalis - VRE Resulted 10/02/25 17:33 Blood Blood Culture - Final NO GROWTH AFTER 5 DAYS OF INCUBATION. Complete Labs and/or images reviewed: Labs reviewed by me, Image(s) reviewed by me Problem List/Assessment/Plan Problem List/Assessment/Plan Neurology # Sedated - Precedex at 0.3 mg # Encephalomalacia - Head CT 09/26/2025: Bilateral cerebral encephalomalacia # Global cerebral volume loss - Head CT 09/26/2025: Mild global cerebral volume loss # epilepsy - Oxycarbazepine - held # Concern for anoxic brain injury - Head CT 10/06/25: No acute intracranial hemorrhage or mass effect.Age indeterminate small infarct involving the right cerebellum, favored to be chronic. If there is clinical concern for acute infarct, recommend MRI for further evaluation.Chronic bilateral parietal and occipital lobe infarcts. - Despite being off sedation for 48 hours, patient still has no meaningful neurologic response. . Neurology has been consulted - unable to obtain MRI as per [employer] pacemaker leads are older generation and not MRI compatible. #History of CVA in 201210/10/25 CT head negative for acute process. - Neurology consult - Off sedation since 10/08 Cardiovascular #S/p Cardiac arrest with ROSC - 09/26/2025: Witnessed at dialysis center, bystanders started CPR and AED use, ROSC achieved before EMS arrived - 10/01/2025: Rhythm: Asystole, ROSC achieved after 7 minutes of CPR - 10/01/2025: Rhythm: Asystole, ROSC achieved after 11 minutes of CPR - 10/01/2025: Rhythm: Asystole, ROSC achieved after 2 minutes of CPR # Cardiogenic shock # Lactic acidosis likely due to above - wound culture growing Enterobacter cloacae MDR, VRE Enterococcus faecalis. - Levophed 2 mcg, now discontinued - Epinephrine has been discontinued # Acute on chronic HFrEF - BNP 1232.11 - Echocardiogram 08/22/2025: LVEF of 20-25%, Severe LV dysfunction, moderate mitral regurgitation - Per cardiology: Diuretics with lasix, aspirin, nitroglycerin SL - Lasix 40 mg IV daily - S/p pacemaker placement # Bilateral pleural effusion - Chest xray 10/12/2025: No significant interval change. #Hypertension - Amlodipine held by nephrology Respiratory # Acute hypoxic hypercapnic respiratory failure # pulmonary edema # Ventilator -Intubated (10/01/2025) -On [facility] vent : VCAC Mode RR 18 TV 450ml, PEEP Of 8 and FiO2 of 4045% - 8.0 endotracheal tube, 24 at the lip - Cutlures from sputum: Normal orophargyngeal elpidio GI # Peptic ulcer prophylaxis -Pantoprazole 40 mg IV daily # Rosales catheter draining clear urine placed on 10/09/2025 Nephrology # ESRD on hemodialysis - Received dialysis without complication and without pressor support on 10/13/2025 with 2 L removed - Strict Is and Os # Severe diabetic nephropathy #Acute metabolic alkalosis # Secondary hyperparathyroidism # Hypocalcemia - Monitor - Calcitrol # Hyperphosphatemia - Phosphate binders Infectious disease # 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 # Possible cellulitis secondary to lower extremity ulcers, , leg wound growing E coli # Complicated UTI growing MDR cloacae, VRE - IV linezolid, now discontinued - started patient on IV gentamicin per pharmacy, now discontinued - consulted infectious disease; per ID to discontinue systemic antibiotics likely colonization #Septic vs Cardiogenic shock - blood Cultures: Negative at 72 hours - Ceftriaxone 1 g IV daily, now discontinue Hem/onc #Thrombocytopenia, improved - Monitor #Normocytic anemia, likely due to chronic disease - Monitor Hand H - Per nephrology: Epogen 58479 SQ 3 weekly as tolerated Endocrine #Type 2 diabetes mellitus - SSI -Accu cheks MSK # Gout - Allopurinol 300 mg PO daily Skin # Circular ulcers present on right leg, present on admission # Possible Sacral Ulcer stage 2, present on admission - Wound culture: VRE - Meropenem 500 mg daily, discontinued - Linezolid 600 mg IV q 12 hours , now discontinued Marijuana use DVT prophylaxis: SCD PUD prophylaxis: Pantoprazole 40 mg IV daily Lines -R femoral central line: 10/01/2025, discontinued on 10/15/2025. - thigh PICC line placed on 10/15/2025 -Rosales catheter 10/09/2025 -ET tube: 10/01/2025 - Tunneled catheter in right pectoral region Patient has right femoral line given the presence of right tunnel catheter in right pectoral region and pacemaker in left field. We will give the patient more time for sedation to wear off for accurate neurological evaluation. [facility]ent[facility] Discontinued Propofol: dc'ed Bicarbonate drip discontinued Levophed discontinued Critical care time 82 minutes excluding procedure. Code status discussed greater than 20 minutes: DNR Detailed conversation held with patient's sister at bedside where prognosis was explained, per patient's sister would like to wait until Sunday before deciding for compassionate extubation versus tracheostomy. Plan discussed with Dr. Rivera Plan discussed with: Other (RN) My Orders My Orders Orders - YOBANI GOETZ RESIDENT Procedure Category Date Status Time Chest Portable XY 10/23/25 Resulted 04:00 Abg W/ Co-Ox RT 10/23/25 Logged 04:00 Complete Blood Count LAB 10/24/25 Verified 04:00 Basic Metabolic Panel LAB 10/24/25 Verified 04:00 Chest Portable XY 10/24/25 Verified 04:00 Abg W/ Co-Ox RT 10/24/25 Verified 04:00 Dietary Evaluation Review Comments: Nutrition Recommendation: 1) CCHO 75gm + renal standard diet 2) Pro-stat 1 pk BID 3) Nephro-nellie 1 tab daily 4) Monitor PO intake, lab values, weight trend, and I/O Expected Outcomes/Goals: Wound to improve Intake to meet >75% estimated needs FU 3-5 days Visit Coding STANDARD RES Billing Provider: JEREMIAH RIVERA MD Date of Service if different f: Oct 23, 2025 Common Visit Codes: [id number] CARE 30-74 MIN, [id number] CARE-EACH +30MIN YOBANI GOETZ RESIDENT Oct 23, 2025 08:14
--- NOTE | 2025-10-23 10:56 | DVHPN2 ---
Progress Note Date Seen: Oct 23, 2025 Has the PT tested + for MRSA If YES, has PT been informed?: No Medical Necessity Reason Pt with a Central, PICC or Fol: Yes The following are medically ne: Central Line, Rosales Catheter Reason for rosales catheter: Strict I&O Subjective Review of Systems: RESPIRATORY:Abnormal Other Systems: Patient seen and examined by myself today in follow-up, patient remained intubated on ventilator Objective vital signs Vital Sign Date Time Temp Pulse Resp B/P (MAP) Pulse Ox O2 Delivery O2 Flow Rate FiO2 10/23/25 09:55 78 20 154/78 (103) 98 30 10/23/25 08:00 Mechanical Ventilator+ 10/23/25 03:45 97.6 97.6 Total Intake and Output 10/22/25 10/22/25 10/23/25 15:00 23:00 07:00 Intake Total 165.76 ml 765.68 ml 465.6 ml Output Total 5 ml 50 ml Balance 165.76 ml 760.68 ml 415.6 ml medications Current Medications Medications Dose Ordered Sig/Esteban Route Start Time Stop Time Status Last Admin Dose Admin Diagnostic Test (Pha) 1 strip ACHS 09/26/25 22:00 10/23/25 06:04 1 STRIP Insulin Human Regular ACHS SC 09/26/25 22:00 10/23/25 06:04 2 UNITS Dextrose 50 ml UD PRN IV 09/26/25 21:15 Amino Acid Protein 30 ml BID PO 09/30/25 22:00 10/23/25 09:57 30 ML Multivit/Ca Carb/ B Cmplx/FA/Prenat 1 tab DAILY PO 09/30/25 11:12 10/23/25 09:54 1 TAB Albumin Human 100 ml @ 100 mls/hr ANABELLA PRN IV 10/03/25 09:45 10/07/25 17:42 100 MLS/HR Aspirin 81 mg DAILY NG 10/05/25 10:00 10/23/25 09:54 81 MG Enteral Nutritional Formula 1,000 ml 40ML/HR GT 10/04/25 18:30 10/20/25 23:12 1,000 ML Famotidine 10 mg HS IV 10/07/25 22:00 10/22/25 22:23 10 MG Albuterol 2.5 mg Q6HR NEB 10/08/25 12:00 10/23/25 06:55 2.5 MG Ipratropium [place] 0.5 mg Q6HR NEB 10/08/25 12:00 10/23/25 06:55 0.5 MG Artificial Tears 2 drop Q2HP PRN EACHEYE 10/08/25 14:30 Levetiracetam 100 ml @ 400 mls/hr BID IV 10/11/25 22:00 10/23/25 09:54 400 MLS/HR Lorazepam 1 mg Q5MINP PRN IV 10/11/25 21:00 Epoetin Mohan-epbx 10,000 unit MWF@2100 SC 10/12/25 21:00 Hold 10/19/25 21:57 10,000 UNIT Gentamicin Sulfate 0 ml @ 0 mls/hr PER PHARMACY IV 10/12/25 18:15 Cancel Sodium Chloride 10 ml QSHIFT@10,22 IV 10/15/25 22:00 10/23/25 09:54 10 ML Calcium Acetate 667 mg TIDWMEALS PO 10/18/25 18:00 10/23/25 08:56 667 MG Hydralazine HCl 10 mg Q6HP PRN IV 10/18/25 14:45 Acetaminophen 650 mg Q6HP PRN PO 10/21/25 13:00 Cancel Examination: LUNGS:Abnormal, CVS:Normal, MSK:Abnormal laboratory and microbiology Laboratory Tests 10/23/25 03:02 Test 10/23/25 03:02 Range/Units Serum Glucose 156 H 74-106 mg/dL Microbiology Date/Time Source Procedure Growth Status 10/08/25 22:28 Urine - Rosales [place] Urine Culture - Final Complete 10/06/25 13:00 Sacrum Gram Stain - Final Resulted 10/06/25 13:00 Wound Culture - Preliminary Enterobacter cloacae Enterococcus faecalis - VRE Resulted 10/02/25 17:33 Blood Blood Culture - Final NO GROWTH AFTER 5 DAYS OF INCUBATION. Complete Problem List/Assessment/Plan Problem List/Assessment/Plan End-stage renal disease on hemodialysis Acute respiratory failure, patient intubated on ventilator Status post cardiac arrest x3 Decompensated heart failure with ejection fraction less than 25% Diabetes with severe diabetic nephropathy Severe peripheral artery disease Anemia of chronic kidney disease Encephalomalacia Hyperphosphatemia Hyperparathyroidism, secondary Recommendations Hemodialysis tomorrow Epogen 32454 subQ 3 times weekly Albumin 25% IV prn hemodialysis Strict I&Os Renal diet IV pressors for blood pressure support phosphate binders Calcitriol Discontinue amlodipine We will continue to follow Plan discussed with: Other (Nurse) Dietary Evaluation Review Comments: Nutrition Recommendation: 1) CCHO 75gm + renal standard diet 2) Pro-stat 1 pk BID 3) Nephro-nellie 1 tab daily 4) Monitor PO intake, lab values, weight trend, and I/O Expected Outcomes/Goals: Wound to improve Intake to meet >75% estimated needs FU 3-5 days AKASH BARRAZA MD Oct 23, 2025 10:56
--- NOTE | 2025-10-23 16:07 | DVHPN2 ---
Progress Note - Dictate Date Seen: Oct 23, 2025 Has the PT tested + for MRSA If YES, has PT been informed?: No Medical Necessity Reason Pt with a Central, PICC or Fol: Yes The following are medically ne: Central Line, Rosales Catheter Reason for rosales catheter: Strict I&O Subjective Patient was seen and evaluated in follow up in the ICU. Patient is intubated and sedated on ventilator. 30% FiO2. Patient's sister has decided to proceed forward with compassionately extubating the patient and then potential board and care with hospice. HGB 7.9, HCT 24.9, BUN 25, BREED TO [employer]IC[employer] 3. Chest x-ray shows lines and tubes in satisfactory position. vital signs Vital Sign Date Time Temp Pulse Resp B/P (MAP) Pulse Ox O2 Delivery O2 Flow Rate FiO2 10/23/25 12:45 69 18 125/64 (84) 98 10/23/25 12:22 30 10/23/25 12:00 Mechanical Ventilator+ 10/23/25 12:00 98.8 98.8 Total Intake and Output 10/22/25 10/22/25 10/23/25 15:00 23:00 07:00 Intake Total 165.76 ml 765.68 ml 465.6 ml Output Total 5 ml 50 ml Balance 165.76 ml 760.68 ml 415.6 ml medications Current Medications Medications Dose Ordered Sig/Esteban Route Start Time Stop Time Status Last Admin Dose Admin Diagnostic Test (Pha) 1 strip ACHS 09/26/25 22:00 10/23/25 11:43 1 STRIP Insulin Human Regular ACHS SC 09/26/25 22:00 10/23/25 11:45 2 UNITS Dextrose 50 ml UD PRN IV 09/26/25 21:15 Amino Acid Protein 30 ml BID PO 09/30/25 22:00 10/23/25 09:57 30 ML Multivit/Ca Carb/ B Cmplx/FA/Prenat 1 tab DAILY PO 09/30/25 11:12 10/23/25 09:54 1 TAB Albumin Human 100 ml @ 100 mls/hr ANABELLA PRN IV 10/03/25 09:45 10/07/25 17:42 100 MLS/HR Aspirin 81 mg DAILY NG 10/05/25 10:00 10/23/25 09:54 81 MG Enteral Nutritional Formula 1,000 ml 40ML/HR GT 10/04/25 18:30 10/20/25 23:12 1,000 ML Famotidine 10 mg HS IV 10/07/25 22:00 10/22/25 22:23 10 MG Albuterol 2.5 mg Q6HR NEB 10/08/25 12:00 10/23/25 12:21 2.5 MG Ipratropium [place] 0.5 mg Q6HR NEB 10/08/25 12:00 10/23/25 12:21 0.5 MG Artificial Tears 2 drop Q2HP PRN EACHEYE 10/08/25 14:30 Levetiracetam 100 ml @ 400 mls/hr BID IV 10/11/25 22:00 10/23/25 09:54 400 MLS/HR Lorazepam 1 mg Q5MINP PRN IV 10/11/25 21:00 Epoetin Mohan-epbx 10,000 unit MWF@2100 SC 10/12/25 21:00 Hold 10/19/25 21:57 10,000 UNIT Gentamicin Sulfate 0 ml @ 0 mls/hr PER PHARMACY IV 10/12/25 18:15 Cancel Sodium Chloride 10 ml QSHIFT@10,22 IV 10/15/25 22:00 10/23/25 09:54 10 ML Calcium Acetate 667 mg TIDWMEALS PO 10/18/25 18:00 10/23/25 11:45 667 MG Hydralazine HCl 10 mg Q6HP PRN IV 10/18/25 14:45 Acetaminophen 650 mg Q6HP PRN PO 10/21/25 13:00 Cancel objective GENERAL: Ill appearing, intubated on ventilator. Morbidly obese. EYES: PERRL, EOMI. Anicteric. HENT: Moist mucous membranes. LUNGS: Decreased breath sounds. CARDIOVASCULAR: Regular rate and rhythm. ABDOMEN: Soft, non-tender and non-distended. EXTREMITIES: No edema. SKIN: Warm, dry. laboratory and microbiology Laboratory Tests 10/23/25 03:02 Test 10/23/25 03:02 Range/Units Serum Glucose 156 H 74-106 mg/dL Problem List Acute syncopal episode. Status post cardiac arrest x3. ESRD on hemodialysis. Hypertension. Peripheral neuropathy. Severe peripheral artery disease. Acute on chronic congestive heart failure exacerbation. History of CVA. Anemia of chronic disease. Diabetes with severe diabetic nephropathy. History of pacemaker. Morbidly obese. Decompensated heart failure with ejection fraction less than 25%. Encephalomalacia. Hyperphosphatemia. Hyperparathyroidism. Assessment/Plan Continued all current supportive medical care. Aspirin. IV Hydralazine for SBP >180. Vasopressors for hemodynamic support. Additional plan as per the hospital course. Critical care time of 45 minutes provided to include time spent evaluation of patient at bedside, when appropriate patient/family education for diagnosis, treatment plan, review of pertinent medical information and discussion of care with specialty providers and PCP. Mechanical ventilator parameters, treatment and adjustments have personally been reviewed by me and treatment plan by lactation specialist has also been reviewed. Dietary Evaluation Review Comments: Nutrition Recommendation: 1) CCHO 75gm + renal standard diet 2) Pro-stat 1 pk BID 3) Nephro-nellie 1 tab daily 4) Monitor PO intake, lab values, weight trend, and I/O Expected Outcomes/Goals: Wound to improve Intake to meet >75% estimated needs FU 3-5 days Plan discussed with: Other MATTHEW CFIUENTES MD Oct 23, 2025 13:23
[2025-10-23] MEDS: GLYCOPYRROLATE 0.2 MG/ML 1ML VIAL IM ONE (19:45)
--- NOTE | 2025-10-23 21:11 | DVHPN2 ---
Consult Progress Note Objective vital signs Vital Sign Date Time Temp Pulse Resp B/P (MAP) Pulse Ox O2 Delivery O2 Flow Rate FiO2 10/23/25 19:30 67 14 133/57 (82) 98 10/23/25 18:05 30 10/23/25 18:00 Mechanical Ventilator+ 10/23/25 16:00 98.4 98.4 Total Intake and Output 10/22/25 10/22/25 10/23/25 15:00 23:00 07:00 Intake Total 165.76 ml 765.68 ml 465.6 ml Output Total 5 ml 50 ml Balance 165.76 ml 760.68 ml 415.6 ml medications Current Medications Medications Dose Ordered Sig/Esteban Route Start Time Stop Time Status Last Admin Dose Admin Diagnostic Test (Pha) 1 strip ACHS 09/26/25 22:00 10/23/25 17:26 1 STRIP Insulin Human Regular ACHS SC 09/26/25 22:00 10/23/25 17:32 2 UNITS Dextrose 50 ml UD PRN IV 09/26/25 21:15 Amino Acid Protein 30 ml BID PO 09/30/25 22:00 10/23/25 09:57 30 ML Multivit/Ca Carb/ B Cmplx/FA/Prenat 1 tab DAILY PO 09/30/25 11:12 10/23/25 09:54 1 TAB Albumin Human 100 ml @ 100 mls/hr ANABELLA PRN IV 10/03/25 09:45 10/07/25 17:42 100 MLS/HR Aspirin 81 mg DAILY NG 10/05/25 10:00 10/23/25 09:54 81 MG Enteral Nutritional Formula 1,000 ml 40ML/HR GT 10/04/25 18:30 10/20/25 23:12 1,000 ML Famotidine 10 mg HS IV 10/07/25 22:00 10/22/25 22:23 10 MG Albuterol 2.5 mg Q6HR NEB 10/08/25 12:00 10/23/25 17:58 2.5 MG Ipratropium [place] 0.5 mg Q6HR NEB 10/08/25 12:00 10/23/25 17:58 0.5 MG Artificial Tears 2 drop Q2HP PRN EACHEYE 10/08/25 14:30 Levetiracetam 100 ml @ 400 mls/hr BID IV 10/11/25 22:00 10/23/25 09:54 400 MLS/HR Lorazepam 1 mg Q5MINP PRN IV 10/11/25 21:00 Epoetin Mohan-epbx 10,000 unit MWF@2100 SC 10/12/25 21:00 Hold 10/19/25 21:57 10,000 UNIT Gentamicin Sulfate 0 ml @ 0 mls/hr PER PHARMACY IV 10/12/25 18:15 Cancel Sodium Chloride 10 ml QSHIFT@10,22 IV 10/15/25 22:00 10/23/25 09:54 10 ML Calcium Acetate 667 mg TIDWMEALS PO 10/18/25 18:00 10/23/25 17:26 667 MG Hydralazine HCl 10 mg Q6HP PRN IV 10/18/25 14:45 Acetaminophen 650 mg Q6HP PRN PO 10/21/25 13:00 Cancel laboratory and microbiology Laboratory Tests 10/23/25 03:02 Test 10/23/25 03:02 Range/Units Serum Glucose 156 H 74-106 mg/dL Problem List/Assessment/Plan Problem List/Assessment/Plan ASSESSMENT AND PLAN: ID Problem List: \-- [id number] cardiac arrest at dialysis center with bystander CPR and AED shock \-- In-hospital bradycardia/asystolic arrest during hemodialysis on 10/01 with prolonged CPR and defibrillation \-- Acute hypoxic respiratory failure requiring mechanical ventilation \-- Multifocal pulmonary airspace disease and pulmonary vascular congestion (pulmonary edema/contusions) after multiple CPR events and underlying CHF \-- CKD on chronic hemodialysis (reported schedule Sunday//Sunday) \-- CHF \-- Diabetes mellitus \-- Hypertension \-- History of stroke \-- Pacemaker in situ (triple-lead on CXR) \-- Chronic thrombocytopenia (platelets progressively decreased from ~115K on admission to 60K on 10/01; most recent ~89K) \-- Sacrococcygeal pressure ulcer (full-thickness, granulating, no drainage/odor) \-- Right anterior ulcer (granulating, no drainage/edema) \-- Multiple left plantar blood-filled blisters and calluses (no deep tissue involvement) \-- Scattered skin ulcers/eschar likely related to peripheral arterial disease and pressure injuries \-- Wound culture (10/06) with VRE and carbapenem-resistant Enterobacter (CRE), currently felt to represent colonization \-- Pneumonia vs pulmonary edema/contusions treated empirically with ceftriaxone clindamycin, later meropenem \-- Current antibiotic regimen: linezolid + gentamicin per pharmacy at the time of this consult Assessment: Theo Zamora is a 59-year-old male with CKD on chronic hemodialysis (/), CHF, history of stroke, diabetes, and hypertension who initially had a syncopal episode and cardiac arrest at the dialysis center. He received bystander CPR and AED shock; on EMS arrival he was awake, alert, and oriented x4 (GCS 15) but had chest wall pain. Initial evaluation showed leukocyte count 7.5, hemoglobin 9.8, platelets 115K, sodium 142, BUN 43, creatinine 6.85. CT head revealed no acute intracranial hemorrhage or mass effect but did show chronic encephalomalacia and chronic microvascular ischemic changes. CXR showed a triple-lead pacemaker and bilateral airspace opacities and pleural effusions without fractures, interpreted as pulmonary contusions and congestion. He was admitted to telemetry and subsequently developed a second arrest on 10/01 while on hemodialysis, with bradycardia progressing to asystole. He received chest compressions for 14 minutes and defibrillation at approximately 14 minutes 22 seconds. Post-code lactic acid was 5.7, improving to 1.9 after return of circulation and fluid resuscitation. Labs on 10/01: WBC 7.2, hemoglobin 8.6, platelets 60K, sodium 140, potassium 4.6, BUN 51, creatinine 7.46, glucose 100, liver enzymes unremarkable. He required intubation and mechanical ventilation (FiO2 50%, PEEP 5 initially), vasopressor support with norepinephrine (Levophed), and empiric antibiotics (ceftriaxone for pneumonia coverage; clindamycin for pneumonia and skin injuries). Respiratory cultures on 10/01 showed normal respiratory elpidio; cultures on 10/02 showed no growth to date. CXR and KUB showed colonic distension with NG tube in the stomach, and moderate multifocal bilateral pulmonary airspace disease with pulmonary vascular congestion. Vasopressor requirements gradually improved and were discontinued; he has now been off pressors for approximately 5 days. FiO2 has improved to 30% with PEEP 5, though CXR continues to show unchanging multifocal airspace disease. On exam he has multiple skin injuries, including a sacrococcygeal full-thickness ulcer (2.5 x 0.2 cm) with healthy granulation tissue and no odor or significant drainage, and a right anterior ulcer (3 x 4 cm) with healthy granulation and epithelium, no drainage, exudate, or surrounding swelling/edema. Eschar is noted on toes and ankle in areas of prior ulcers/ischemic disease. There are multiple left plantar foot blood-filled blisters and calluses; de-roofed blisters reveal intact underlying skin with no deeper edema or induration. These injuries are thought to be related to peripheral arterial disease, pressure, and thrombocytopenia-related skin fragility. Wound care is being provided. A wound culture on 10/06 grew VRE and a multidrug-resistant Enterobacter (carbapenem-resistant), sensitive only to gentamicin. Current antibiotics include linezolid and gentamicin per pharmacy. Clinically, there are no signs of cellulitis at the wound sites, no diarrhea, no reports of new drainage or local changes, and no ongoing hemodynamic instability or other signs of sepsis. The VRE and Enterobacter are felt to represent colonization of chronic wounds rather than active invasive infection at this time. Given his advanced CKD on dialysis and chronic thrombocytopenia (platelets <100K), the risks of gentamicin (nephrotoxicity/ototoxicity in a dialysis patient) and linezolid (worsening thrombocytopenia) likely outweigh the benefits in the absence of clear evidence of active systemic infection. 10/13: hemodynamically stable off antibiotics 10/14: urine culture w. rosales catheter sampled oliguric urine growing VRE and enterobacter - consistent with colonization Plan: 0. will continue to monitor patient off all antibiotics 1\. Wound colonization with VRE and CRE Enterobacter (no current evidence of invasive infection): \-- Wound culture (10/06) with VRE and carbapenem-resistant Enterobacter likely represents colonization of chronic pressure/ischemic ulcers rather than active infection based on current exam (granulation tissue, lack of drainage, lack of surrounding erythema/edema, no systemic signs of sepsis). // Likewise, urine sample from oliguric patient sampled from a rosales catheter placed at time of admission would like represent stagnant urine breeding colonized bacteria. \-- Recommend stop all systemic antibiotics at this time, including linezolid and gentamicin, given: Lack of clinical evidence for active invasive infection High risk of ototoxicity/nephrotoxicity from gentamicin in a dialysis patient Risk of worsening thrombocytopenia with linezolid in a patient with platelets <100K \-- Continue meticulous local wound care as per wound care nursing and primary team. \-- Monitor wounds closely for any new drainage, malodor, increased pain, erythema, warmth, or expansion, which would raise concern for superimposed infection. 2\. Acute hypoxic respiratory failure; multifocal airspace disease (pulmonary edema/contusions; possible pneumonia): \-- Currently mechanically ventilated with FiO2 ~30% and PEEP 5; off vasopressors for ~5 days. \-- Continue ventilator weaning as tolerated per ICU/primary team. \-- Continue aggressive volume management and diuresis in concert with hemodialysis to address pulmonary edema as seen on CXR. \-- At present, respiratory cultures show only normal elpidio or no growth; there are no clear signs of active, progressive pneumonia distinct from pulmonary edema/contusion. \-- If clinical concern for sepsis or worsening pneumonia arises (e.g., new fever, leukocytosis, rising vasopressor requirement, worsening oxygenation, hypotension, new purulent secretions): Obtain repeat sputum culture from a tracheal aspirate or tracheal wash. Reinitiate empiric therapy for hospital-acquired pneumonia. Options discussed include: Piperacillin-tazobactam (Zosyn) or cefepime for Pseudomonas and broad gram-negative coverage. At this time, VRE and carbapenem-resistant Enterobacter from the sacral wound are not felt to be significantly contributing to the pulmonary process or overall clinical picture, and targeted therapy against these organisms is not recommended absent evidence of invasive disease. 3\. Chronic kidney disease on hemodialysis; risk of electrolyte-related arrhythmia and arrest: \-- Continue scheduled hemodialysis (reported Sunday//Sunday) with careful monitoring of potassium and other electrolytes, especially in the olga- dialysis period given prior arrest during hemodialysis. \-- Avoid nephrotoxic antibiotics where possible; specifically recommend discontinuation of gentamicin as above. \-- Continue close hemodynamic and rhythm monitoring during dialysis sessions. 4\. Chronic thrombocytopenia: \-- Platelet count has declined from ~115K on admission to as low as 60K, with recent level around 89K. \-- Avoid linezolid in the setting of chronic thrombocytopenia where possible, as recommended above. \-- Monitor platelet counts serially. \-- Transfusion and further hematologic evaluation to be directed by the primary/ICU team. 5\. Skin ulcers, pressure injuries, and ischemic lesions: \-- Continue dedicated wound care with: Sacrococcygeal ulcer (2.5 x 0.2 cm, full thickness, granulating, no drainage/odor). Right anterior ulcer (3 x 4 cm, healthy granulation and epithelium, no drainage or surrounding edema). Eschar on toes and ankle at prior ulcer/ischemic sites. Multiple left plantar blood-filled blisters and calluses, with blisters de-roofed to healthy underlying tissue and no deep edema or induration. \-- Maintain offloading and repositioning strategies to avoid further pressure on sacrum and other bony prominences; defer specific dressing and positioning regimens to wound care nursing. \-- No systemic antibiotics indicated for these wounds at present, in the absence of cellulitis or systemic signs of infection. 6\. Cardiovascular status; postcardiac arrest care: \-- He has had two significant cardiac events ([id number] arrest at dialysis center; in-hospital asystolic arrest during hemodialysis). \-- Etiology remains unclear but may be related in part to electrolyte shifts in the setting of CKD on dialysis and underlying structural heart disease (CHF, pacemaker in place). \-- Currently off vasopressors with stable blood pressures per transcript. \-- Continue telemetry and standard postcardiac arrest care as directed by ICU/cardiology teams. \-- No additional ID-specific interventions beyond those noted. 7\. Diabetes mellitus, hypertension, CHF, history of stroke: \-- Management to be continued by primary and consulting services. \-- From an ID standpoint, these comorbidities increase risk of poor wound healing and infection; reinforce close monitoring of wounds and careful glycemic and volume control. Isolation Precautions: \-- Isolation precautions: Not specified in transcript. (Given colonization with VRE and carbapenem-resistant Enterobacter, facility policies on contact precautions should be followed as per hospital protocol; defer to hospital infection prevention team.) Plan is subject to change pending incorporation of new incoming information/diagnostics. Updates may be added as an addendum at the bottom (or top) of this note. Infectious Disease will continue to follow. Please contact the ID service with any new questions or concerns. Electronically signed by: Lc Huston MD, 10/13/2025 Authorized and Performed by: lc huston Md Total critical care time: Approximately 66 minutes Due to a high probability of clinically significant, life threatening deterioration, the patient required my highest level of preparedness to intervene emergently and I personally spent this critical care time directly and personally managing the patient. This critical care time included obtaining a history; examining the patient; pulse oximetry; ordering and review of studies; arranging urgent treatment with development of a management plan; evaluation of patient's response to treatment; frequent reassessment; and, discussions with other providers. This critical care time was performed to assess and manage the high probability of imminent, life-threatening deterioration that could result in multi-organ failure. It was exclusive of separately billable procedures and treating other patients and teaching time. Physical Exam: General: NAD Neck: Supple. No masses. HEENT: PERRL. Normal lids and conjunctiva. Moist mucous membranes. Oropharynx without lesions, exudates or excessive erythema. Normal appearance of the external aspects of the nose and ears. Heart: Regular rhythm, normal rate. No murmur. No lower extremity edema. Lungs: Normal respiratory effort. Clear to auscultation bilaterally. No wheezes. No crackles. Mechanically ventilated via endotracheal tube; most recent settings in transcript: FiO2 approximately 30%, PEEP 5 cm H?O. Abdomen: Soft. Non-tender. Non-distended. No masses or abdominal hernia. Msk: No digital cyanosis. Normal strength and tone in all 4 limbs. Chest wall tenderness and bruising present, consistent with recent CPR. Skin: Warm and dry, no rashes. Sacrococcygeal ulcer approximately 2.5 x 0.2 cm, full-thickness wound with healthy granulation tissue, no odor or significant drainage. Right anterior ulcer approximately 3 x 4 cm with healthy granulation tissue and epithelium, no drainage, exudate, or surrounding swelling/edema. Eschar noted on toes and ankle in areas of prior ulcers/ischemic disease. Multiple left plantar foot blood-filled blisters and calluses; blisters de- roofed with intact underlying skin, no signs of deeper edema or induration. Scattered skin ulceration and tissue injury consistent with peripheral arterial disease and pressure injury. Neuro: Alert. No facial droop or slurred speech. Extra-ocular movements intact. Sensation intact to soft touch in all 4 limbs. Psych: Appropriate mood. Full affect. Oriented to person, place, time, and situation. Dietary Evaluation Review Comments: Nutrition Recommendation: 1) CCHO 75gm + renal standard diet 2) Pro-stat 1 pk BID 3) Nephro-nellie 1 tab daily 4) Monitor PO intake, lab values, weight trend, and I/O Expected Outcomes/Goals: Wound to improve Intake to meet >75% estimated needs FU 3-5 days LC HUSTON MD Oct 23, 2025 21:11
--- NOTE | 2025-10-23 22:15 | DVHPN2 ---
[facility] DOS: 10/23/2025 Patient seen and examined at bedside. Intubated on mechanical ventilator. Overnight events reviewed. Reviewed: Care Plan, H&P, Labs, Medications, Previous Orders, Radiology Changes from previous H/P or p: No Changes Eyes: No Pain, No Vision change, No Conjunctivae inflammation, No Eyelid inflammation, No Other, No Redness ENT: No Ear pain, No Ear discharge, No Nose pain, No Nose discharge, No Nose congestion, No Mouth pain, No Mouth swelling, No Throat pain, No Throat swelling, No Other Cardiovascular: Chest Pain; No Palpitations, No Orthopnea, No Paroxysmal Noc. Dyspnea, No Edema, No Lt Headedness, No Other Respiratory: No Cough, No Dry, No Shortness of breath, No SOB with excertion, No Wheezing, No Hemoptysis, No Pleuritic Pain, No Sputum, No Other Gastrointestinal: No Nausea, No Vomiting, No Abdominal Pain, No Diarrhea, No Constipation, No Melena, No Hematochezia, No Other Genitourinary: No Dysuria, No Frequency, No Incontinence, No Hematuria, No Retention; Other (On hemodialysis) Musculoskeletal: No other, No neck pain, No shoulder pain, No arm pain, No back pain, No hand pain, No leg pain, No foot pain Skin: No Rash, No Lesions, No Jaundice, No Bruising, No Other Objective Vitals Vital Signs Date Time Temp Pulse Resp B/P (MAP) Pulse Ox O2 Delivery O2 Flow Rate FiO2 10/23/25 20:45 79 18 140/50 (80) 100 30 10/23/25 18:00 Mechanical Ventilator+ 10/23/25 16:00 98.4 98.4 Intake/Output Intake and Output 10/23/25 07:00 Intake Total 1397.04 ml Output Total 55 ml Balance 1342.04 ml Intake Oral 200 ml IV Total 397.04 ml Tube Feeding 800 ml Output Urine Total 50 ml Stool Total 5 ml Exam Gen.: Patient lying in bed in medical ICU. Intubated on mechanical ventilator. Head: Normocephalic, atraumatic. Eyes: PERRLA. Ears: Normal external anatomy. Throat: Endotracheal tube and orogastric tube in place. Neck: Supple, trachea midline. Chest: Transmitted breath sounds bilaterally. Decreased air entry bilaterally. No wheezing. Bibasilar crackles. Cardiovascular: Positive S1, positive S2. Regular rate and rhythm. Abdomen: Positive bowel sounds in all 4 quadrants. Soft, nontender, nondistended. : Salas in place. Normal external genitalia. Rectal: Deferred. Skin: Warm, dry. Intact. Extremities: 2+ radial pulses bilaterally. No lower extremity edema. Neuro: Off sedation Medications Current Medications Medications Dose Ordered Sig/Esteban Route Start Time Stop Time Status Last Admin Dose Admin Diagnostic Test (Pha) 1 strip ACHS 09/26/25 22:00 10/23/25 22:04 1 STRIP Insulin Human Regular ACHS SC 09/26/25 22:00 10/23/25 22:04 2 UNITS Dextrose 50 ml UD PRN IV 09/26/25 21:15 Amino Acid Protein 30 ml BID PO 09/30/25 22:00 10/23/25 22:07 30 ML Multivit/Ca Carb/ B Cmplx/FA/Prenat 1 tab DAILY PO 09/30/25 11:12 10/23/25 09:54 1 TAB Albumin Human 100 ml @ 100 mls/hr ANABELLA PRN IV 10/03/25 09:45 10/07/25 17:42 100 MLS/HR Aspirin 81 mg DAILY NG 10/05/25 10:00 10/23/25 09:54 81 MG Enteral Nutritional Formula 1,000 ml 40ML/HR GT 10/04/25 18:30 10/20/25 23:12 1,000 ML Famotidine 10 mg HS IV 10/07/25 22:00 10/23/25 21:54 10 MG Albuterol 2.5 mg Q6HR NEB 10/08/25 12:00 10/23/25 17:58 2.5 MG Ipratropium [place] 0.5 mg Q6HR NEB 10/08/25 12:00 10/23/25 17:58 0.5 MG Artificial Tears 2 drop Q2HP PRN EACHEYE 10/08/25 14:30 Levetiracetam 100 ml @ 400 mls/hr BID IV 10/11/25 22:00 10/23/25 21:53 400 MLS/HR Lorazepam 1 mg Q5MINP PRN IV 10/11/25 21:00 Epoetin Mohan-epbx 10,000 unit MWF@2100 NE 10/12/25 21:00 Hold 10/19/25 21:57 10,000 UNIT Gentamicin Sulfate 0 ml @ 0 mls/hr PER PHARMACY IV 10/12/25 18:15 Cancel Sodium Chloride 10 ml QSHIFT@10,22 IV 10/15/25 22:00 10/23/25 21:56 10 ML Calcium Acetate 667 mg TIDWMEALS PO 10/18/25 18:00 10/23/25 17:26 667 MG Hydralazine HCl 10 mg Q6HP PRN IV 10/18/25 14:45 Acetaminophen 650 mg Q6HP PRN PO 10/21/25 13:00 Cancel Laboratory Results Laboratory Tests 10/23/25 03:02 Chemistry Test 10/23/25 03:02 Calcium Level 9.1 mg/dL (8.7-10.4) Urinalysis Test 10/08/25 22:28 Urine Color Dark-brown (Yellow) Urine Clarity Ex.turbid (Clear) Urine pH 6.0 (5.0-9.0) Urine Specific [place] 1.017 (1.001-1.035) Urine Protein 2+ (Negative) H Urine Ketones Negative (Negative) Urine Blood 3+ /uL (Negative) H Urine Nitrite Negative (Negative) Urine Bilirubin Negative (Negative) Urine Urobilinogen Normal mg/dL (Negative) Urine Leukocyte Esterase 3+ /uL (Negative) Urine RBC 320 /hpf (0 - 3) Urine WBC Clumps Present /hpf (None Seen) Urine Microscopic WBC 1809 /HPF (0-3) H Urine Squamous Epithelial Cells Many /hpf (<5) Urine Amorphous Crystals Few /hpf (None Seen) Urine Bacteria Many /hpf (None Seen) H Urine Mucus Few (None Seen) Urine Glucose Normal mg/dL (Normal) Blood Gas Results Test 10/23/25 07:24 Arterial Blood pH 7.468 (7.350-7.450) FiO2 % 30.0 Microbiology Microbiology Date/Time Source Procedure Growth Status 10/08/25 22:28 Urine - [place] Urine Culture - Final Complete 10/06/25 13:00 Sacrum Gram Stain - Final Resulted 10/06/25 13:00 Wound Culture - Preliminary Enterobacter cloacae Enterococcus faecalis - VRE Resulted 10/02/25 17:33 Blood Blood Culture - Final NO GROWTH AFTER 5 DAYS OF INCUBATION. Complete Assessment/Plan Assessment/Plan Impression: Acute hypoxic respiratory failure On mechanical ventilator Lactic acidosis S/p cardiac arrest Acute on chronic CHF ESRD, on hemodialysis DM type II Shock Morbid obesity Cellulitis Sacral ulcer Events: Remains on vent support On AC mode; RR 18, VT 450, PEEP 5, FiO2 40% Off sedation since 10/08/25 On Precedex drip Head of bed elevation Aspiration precautions Glycopyrrolate PRN for increased oral secretions. ABG notable for alkalemia Chest x-ray shows unchanged multifocal airspace disease and low lung volumes. S/p hemodialysis yesterday, removed 3 liters. Off pressors, hemodynamically stable. Patient noted to have increased pressor requirements during HD. Continue hemodialysis per Nephrology Monitor hemoglobin - currently 7.9 g/dL. Transfuse if less than 7.0 g/dL. Continue bronchodilators Completed antibiotics Antiepileptic with Keppra Hemodialysis per Nephrology Follow up Nephrology recs Monitor renal function Salas was exchanged 10/09. Tube feeds for nutritional support Wound care Patient has poor prognosis. Family discussion held regarding goals of care. Possible plan for compassionate extubation on Sunday CT head revealed no acute intracranial abnormality. 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 Likely chronic right cerebellar infarct. KUB showed nonobstructive bowel gas pattern. Labs and imaging reviewed. Rest of plan as noted below. Plan: s/p intubation on mechanical ventilator. On AC mode; RR 18, VT 450, PEEP 5, FiO2 40% Titrate FIO2 to keep O2 saturation above 90%. VAP bundle. Daily ABG and CXR while intubated Pressors as necessary for hemodynamic support Titrate to keep mean arterial pressure greater than 65 mmHg. Antibiotics. Follow up cultures. HD per Nephrology Diurese to euvolemia Monitor renal function Monitor electrolytes. Supplement as necessary. Monitor ins and outs. Recommend judicious use of fluids due to CHF. Wound care Monitor lactic acid. Obesity complicates all care GI prophylaxis. DVT prophylaxis. Prognosis: Poor given patient's multiple co-morbidities. Condition: Critical Rest of plan per hospitalist and other consultants. A total of 35 minutes of critical care time was spent reviewing the patient record, examining the patient, making a diagnostic and therapeutic plan, discussing this plan with the medical personnel, following up on diagnostic studies and following the patient for clinical stability excluding any and all procedures. At least 50% of this time was spent in direct, [id number] contact. Thank you, Dr. Cantu, for allowing me to participate in this patient's care. Further recommendations will depend on the patient's clinical course. Please do not hesitate to contact me if you have any questions or concerns. This medical document was created using an electronic medical record system with [employer] dictation system. Although these documentations are being carefully reviewed, there may still be some phonetic and typographical changes. The errors are purely typographical, due to imperfection on the software program, and do not reflect any compromise in the patient's medical care. Plan discussed with: Other (RN) Visit Coding Pulmonary Billing Provider: JEREMIAH GAMEZ MD Date of Service if different f: Oct 23, 2025 Common Visit Codes: 39323-[id number] INP/OBS CARE(HIGH), [id number] CARE 30-74 MIN JEREMIAH GAMEZ MD Oct 23, 2025 22:15
[2025-10-24] VITALS (101 sets, daily range): BP systolic 97–172; BP diastolic 31–99; PULSE 61–94; RESP 9–25; TEMP 97.4–98.7; O2SAT 95–100
[2025-10-24 03:57] LABS: Hemoglobin 8.1 g/dL (13.5-17.5); Nucleated Red Blood Cells % 0.1 %
[2025-10-24 04:00] LABS: Hematocrit 25.1 % (41.0-53.0); Mean Corpuscular Hemoglobin 31.7 pg (28.0-32.0); Mean Corpuscular Volume 97.9 fL (80.0-100.0)
[2025-10-24 04:06] LABS: Chloride 102 mmol/L (98-107); Potassium 3.7 mmol/L (3.5-5.1); Sodium 141 mmol/L (136-145)
[2025-10-24 04:07] LABS: Anion Gap 9 (5-15); Carbon Dioxide 30 mmol/L (20-31)
[2025-10-24 04:08] LABS: Calcium 9.5 mg/dL (8.7-10.4)
[2025-10-24 04:12] LABS: BUN/Creatinine Ratio 10.0 (10.0-20.0)
[2025-10-24 04:16] LABS: Blood Urea Nitrogen 37 mg/dL (9-23); Glucose 164 mg/dL (74-106)
--- NOTE | 2025-10-24 06:16 | DVH ---
CHEST RADIOGRAPH INDICATION: intubated TECHNIQUE: Single frontal view of the chest was obtained COMPARISON: XY CHEST PORTABLE on DOS: 10/23/25, XY CHEST PORTABLE on DOS: 10/22/25, XY CHEST PORTABLE on DOS: 10/21/25, XY CHEST PORTABLE on DOS: 10/20/25, XY CHEST PORTABLE on DOS: 10/19/25 FINDINGS: Lines and Tubes: Endotracheal tube tip is 6.3 cm above the tiburcio. Right IJ line. Left chest pacer. Enteric tube. Lungs: Moderate to extensive pulmonary edema. Pleura: No effusion. No pneumothorax. Cardiomediastinal contours: Mild cardiomegaly Bones: No acute osseous abnormality. IMPRESSION: 1. Endotracheal tube tip 6.3 cm above the tiburcio; consider 2 cm advancement. 2. Otherwise support lines are in appropriate position. 3. Extensive pulmonary edema and mild cardiomegaly
[2025-10-24 07:41] LABS: Base Excess 3.8 mmol/L (-2.0-3.0)
--- NOTE | 2025-10-24 10:34 | DVHPN2 ---
Progress Note Date Seen: Oct 24, 2025 Has the PT tested + for MRSA If YES, has PT been informed?: No Medical Necessity Reason Pt with a Central, PICC or Fol: Yes The following are medically ne: Central Line, [place] Catheter Reason for rosales catheter: Strict I&O Subjective Review of Systems: RESPIRATORY:Abnormal Other Systems: Patient seen and examined by myself today in follow-up, patient remained intubated on ventilator Patient examined hemodialysis, blood pressure stable Objective vital signs Vital Sign Date Time Temp Pulse Resp B/P (MAP) Pulse Ox O2 Delivery O2 Flow Rate FiO2 10/24/25 09:07 94 25 160/82 (108) 100 30 10/24/25 08:00 Mechanical Ventilator+ 10/24/25 08:00 97.4 97.4 Total Intake and Output 10/23/25 10/23/25 10/24/25 15:00 23:00 07:00 Intake Total 8.2 ml 756.185 ml 532.54 ml Output Total 85 ml 60 ml Balance 8.2 ml 671.185 ml 472.54 ml medications Current Medications Medications Dose Ordered Sig/Esteban Route Start Time Stop Time Status Last Admin Dose Admin Diagnostic Test (Pha) 1 strip ACHS 09/26/25 22:00 10/24/25 06:21 1 STRIP Insulin Human Regular ACHS SC 09/26/25 22:00 10/24/25 06:24 3 UNITS Dextrose 50 ml UD PRN IV 09/26/25 21:15 Amino Acid Protein 30 ml BID PO 09/30/25 22:00 10/24/25 10:14 30 ML Multivit/Ca Carb/ B Cmplx/FA/Prenat 1 tab DAILY PO 09/30/25 11:12 10/24/25 10:13 1 TAB Albumin Human 100 ml @ 100 mls/hr ANABELLA PRN IV 10/03/25 09:45 10/07/25 17:42 100 MLS/HR Aspirin 81 mg DAILY NG 10/05/25 10:00 10/24/25 10:13 81 MG Enteral Nutritional Formula 1,000 ml 40ML/HR GT 10/04/25 18:30 10/24/25 01:20 1,000 ML Famotidine 10 mg HS IV 10/07/25 22:00 10/23/25 21:54 10 MG Albuterol 2.5 mg Q6HR NEB 10/08/25 12:00 10/24/25 06:51 2.5 MG Ipratropium [place] 0.5 mg Q6HR NEB 10/08/25 12:00 10/24/25 06:51 0.5 MG Artificial Tears 2 drop Q2HP PRN EACHEYE 10/08/25 14:30 Levetiracetam 100 ml @ 400 mls/hr BID IV 10/11/25 22:00 10/24/25 10:13 400 MLS/HR Lorazepam 1 mg Q5MINP PRN IV 10/11/25 21:00 Epoetin Mohan-epbx 10,000 unit MWF@2100 SC 10/12/25 21:00 Hold 10/19/25 21:57 10,000 UNIT Gentamicin Sulfate 0 ml @ 0 mls/hr PER PHARMACY IV 10/12/25 18:15 Cancel Sodium Chloride 10 ml QSHIFT@10,22 IV 10/15/25 22:00 10/24/25 10:14 10 ML Calcium Acetate 667 mg TIDWMEALS PO 10/18/25 18:00 10/24/25 08:50 667 MG Hydralazine HCl 10 mg Q6HP PRN IV 10/18/25 14:45 Acetaminophen 650 mg Q6HP PRN PO 10/21/25 13:00 Cancel Examination: LUNGS:Abnormal, CVS:Normal, MSK:Abnormal laboratory and microbiology Laboratory Tests 10/24/25 03:45 Test 10/24/25 03:45 Range/Units Serum Glucose 164 H 74-106 mg/dL Microbiology Date/Time Source Procedure Growth Status 10/08/25 22:28 Urine - [place] Urine Culture - Final Complete 10/06/25 13:00 Sacrum Gram Stain - Final Resulted 10/06/25 13:00 Wound Culture - Preliminary Enterobacter cloacae Enterococcus faecalis - VRE Resulted 10/02/25 17:33 Blood Blood Culture - Final NO GROWTH AFTER 5 DAYS OF INCUBATION. Complete Problem List/Assessment/Plan Problem List/Assessment/Plan End-stage renal disease on hemodialysis Acute respiratory failure, patient intubated on ventilator Status post cardiac arrest x3 Decompensated heart failure with ejection fraction less than 25% Diabetes with severe diabetic nephropathy Severe peripheral artery disease Anemia of chronic kidney disease Encephalomalacia Hyperphosphatemia Hyperparathyroidism, secondary Recommendations Continue with UF to 3 L as tolerated Epogen 77358 subQ 3 times weekly Albumin 25% IV prn hemodialysis Strict I&Os Renal diet IV pressors for blood pressure support phosphate binders Calcitriol Discontinue amlodipine We will continue to follow Plan discussed with: Other (Nurse) My Orders My Orders Orders - AKASH BARRAZA MD Procedure Category Date Status Time Hemodialysis Orders ORDERS 10/24/25 Transmitted 07:00 Dialysis Nursing [facility] 10/24/25 In Process Message 07:00 Document Fluid Input [facility] 10/24/25 In Process And Outpu 07:00 Epoetin Mohan-Epbx [facility] 10/24/25 In Process (Retacrit) 21:00 Dietary Evaluation Review Comments: Nutrition Recommendation: 1) CCHO 75gm + renal standard diet 2) Pro-stat 1 pk BID 3) Nephro-nellie 1 tab daily 4) Monitor PO intake, lab values, weight trend, and I/O Expected Outcomes/Goals: Wound to improve Intake to meet >75% estimated needs FU 3-5 days AKASH BARRAZA MD Oct 24, 2025 10:34
--- NOTE | 2025-10-24 13:51 | DVHPNRES ---
Progress Note Date Seen: Oct 24, 2025 Resident Creating Document: SEUN RUBIN RESIDENT Has the PT tested + for MRSA If YES, has PT been informed?: No Medical Necessity Reason Pt with a Central, PICC or Fol: Yes The following are medically ne: Central Line, Rosales Catheter Reason for rosales catheter: Strict I&O Subjective Review of Systems Mr. Zamora is a 59 year old male with PMHx of ESRD with recent initiation of dialysis approximately 2 weeks ago , HFrEF with pacemaker placement, CVA in 2012, type 2 diabetes mellitus, gout, and hypertension, who presented to [facility] due to witnessed cardiopulmonary arrest during dialysis on 09/26/2025. At the time of evaluation the patient is sedated and intubated, majority of history is taken from previous medical record and his sister, Claudia Burnett. Per record, the patient became unresponsive during hemodialysis, CPR was intiated by bystanders and AED was used, by the time EMS arrived on scene the patient was found A&Ox4, GCS15, and moaning in pain. On evaluation in the ED, patient was complaining of dyspnea and chest wall pain. He was afebrile, normocardic with pacedc rhythm, hypertensive, and saturating adequately on room air. EKG showed paced rhythm with widened QTc. Initial labs are significant for normocytic anemia, hypokalemia, creatinine 6.85, BUN 43, and BNP 1232.11. Troponins were negative. UA without alteration. Chest xray significant for lungs with bilateral patchy airspace opacities, prominent pulmonary vasculature, with small bilateral pleural effusions. Head CT shows bilateral cerebral encephalomalacia and mild global cerebral volume loss without intracranial hemorrhage or mass effect. The patient was started on IV diuresis and admitted for further work up and managment. He was evaluated by cardiology who continued diuresis. The patient was evaluated by nephrology who state that given diminished cardiac function likely patient cannot tolerate large ultrafiltration goals. He was scheduled for further dialysis, having undergone dialysis on 09/28/2025 without issue. He was receiving dialysis on 10/01/2025 when he became bradycardic and went into asystole. Code wesly was called and CPR was intiated with ROSC achieved after 7 minutes of CPR. He was transferred to the ICU and he entered asystole two more times in a span of 15 minutes a with ROSC achieved after 11 minutes of CPR and at 2 minutes of CPR respectively. He was intubated and started on pressors, sedation, antibiotics, and bicarbonate drip. On initial evaluation in the ICU, the patient is intubated, sedated, and mechanically ventilated, on levophed 2 mcg, pupils are reactive, no response to painful stimulus, cough and gag are present. Labs are significant for normocytic anemia, worsening thrombocytopenia, and worsening renal function. ABG is significant for metabolic alkalosis. Most recent chest xray shows worsening congestion. Past medical history: ESRD on dialysis, HFrEF, CVA in 2012, Type 2 diabetes mellitus, and hypertension Past surgical history: Pacemaker placement and replacement, Right femoral fracture repair Allergies: Denies Social: Per sister, the patient currently smokes marijuana, denies other drug use. Patient currently lives with his mother and his brother. Home meds: Famotidine, Allopurinol, pregabalin, furosemide, sevelamer, metoprolol, and lokelma 10/24/2025: Patient was seen at bedside. Nurse reported spontaneous eye opening. Eye opening on sternal rub. Patient is minimally sedated, remained nonverbal. Labs show elevated creatinine and BUN. Currently on Precedex 0.5. Planned compassionate extubation and potential discharge to board and care with hospice. Objective vital signs Vital Sign Date Time Temp Pulse Resp B/P (MAP) Pulse Ox O2 Delivery O2 Flow Rate FiO2 10/24/25 12:30 70 18 132/58 (82) 98 10/24/25 12:00 30 10/24/25 12:00 Mechanical Ventilator+ 10/24/25 12:00 97.5 97.5 Total Intake and Output 10/23/25 10/23/25 10/24/25 15:00 23:00 07:00 Intake Total 8.2 ml 756.185 ml 545.74 ml Output Total 85 ml 60 ml Balance 8.2 ml 671.185 ml 485.74 ml medications Current Medications Medications Dose Ordered Sig/Esteban Route Start Time Stop Time Status Last Admin Dose Admin Diagnostic Test (Pha) 1 strip ACHS 09/26/25 22:00 10/24/25 11:37 1 STRIP Insulin Human Regular ACHS SC 09/26/25 22:00 10/24/25 11:36 3 UNITS Dextrose 50 ml UD PRN IV 09/26/25 21:15 Amino Acid Protein 30 ml BID PO 12/3/25 22:00 10/24/25 10:14 30 ML Multivit/Ca Carb/ B Cmplx/FA/Prenat 1 tab DAILY PO 09/30/25 11:12 10/24/25 10:13 1 TAB Albumin Human 100 ml @ 100 mls/hr ANABELLA PRN IV 10/03/25 09:45 10/07/25 17:42 100 MLS/HR Aspirin 81 mg DAILY NG 10/05/25 10:00 10/24/25 10:13 81 MG Enteral Nutritional Formula 1,000 ml 40ML/HR GT 10/04/25 18:30 10/24/25 01:20 1,000 ML Famotidine 10 mg HS IV 10/07/25 22:00 10/23/25 21:54 10 MG Albuterol 2.5 mg Q6HR NEB 10/08/25 12:00 10/24/25 11:12 2.5 MG Ipratropium [place] 0.5 mg Q6HR NEB 10/08/25 12:00 10/24/25 11:12 0.5 MG Artificial Tears 2 drop Q2HP PRN EACHEYE 10/08/25 14:30 Levetiracetam 100 ml @ 400 mls/hr BID IV 10/11/25 22:00 10/24/25 10:13 400 MLS/HR Lorazepam 1 mg Q5MINP PRN IV 10/11/25 21:00 Epoetin Mohan-epbx 10,000 unit MWF@2100 SC 10/12/25 21:00 Hold 10/19/25 21:57 10,000 UNIT Gentamicin Sulfate 0 ml @ 0 mls/hr PER PHARMACY IV 10/12/25 18:15 Cancel Sodium Chloride 10 ml QSHIFT@10,22 IV 10/15/25 22:00 10/24/25 10:14 10 ML Calcium Acetate 667 mg TIDWMEALS PO 10/18/25 18:00 10/24/25 11:38 667 MG Hydralazine HCl 10 mg Q6HP PRN IV 10/18/25 14:45 Acetaminophen 650 mg Q6HP PRN PO 10/21/25 13:00 Cancel Examination General: Patient is intubated, mechanically ventilated, eye opening on sternal rub. HEENT: Normocephalic, atraumatic, 3 mm very sluggish, no EOM, eyes open and moving, unable to track objects, ET tube in place, orogastric tube in palce Respiratory/pulmonary: Bilateral chest expansion, decreased breath sounds bilaterally, wheezing in bilateral upper lobes Cardiovascular: Normal RRR Abdomen: Obese, Abdomen nondistended, normal bowel sounds no grimacing is observed on palpation, no palpable masses. Extremities: No deformities, bilateral lower extremity pedal edema 2+ up to upper thighs, with scrotal swelling, large red circular ulcers present in right calf, presence of femoral CVC in right groin region, pulses are present, blisters present on left forearm. Left lower extremity superficial ulcer on the lateral aspect of the leg. Right lower extremity 2 superficial ulcers 1 on the medial leg and 1 on the dorsal foot. Skin: Saccrococcyx 2.5x1.2x0.5cm, moist, open, full-thickness wound with moist red granulation tissue in the wound base and a mix of pale pink collagen scar tissue and dark brown adhered eschar material on the periwound area, there is minimal odor., darkened eschar lesions on his toes Neurological: hypoactive Gag and cough noted, patient blinks but does not track movements with his eyes, does not respond to verbal commands, no response to painful stimulus. Penile ulcer noted under the foreskin laboratory and microbiology Laboratory Tests 10/24/25 03:45 Test 10/24/25 03:45 Range/Units Serum Glucose 164 H 74-106 mg/dL Microbiology Date/Time Source Procedure Growth Status 10/08/25 22:28 Urine - Rosales [place] Urine Culture - Final Complete 10/06/25 13:00 Sacrum Gram Stain - Final Resulted 10/06/25 13:00 Wound Culture - Preliminary Enterobacter cloacae Enterococcus faecalis - VRE Resulted 10/02/25 17:33 Blood Blood Culture - Final NO GROWTH AFTER 5 DAYS OF INCUBATION. Complete Problem List/Assessment/Plan Problem List/Assessment/Plan Neurology # Sedated - Precedex at 0.5 mg # Encephalomalacia - Head CT 09/26/2025: Bilateral cerebral encephalomalacia # Global cerebral volume loss - Head CT 09/26/2025: Mild global cerebral volume loss # epilepsy - Oxycarbazepine - held # Concern for anoxic brain injury - Head CT 10/06/25: No acute intracranial hemorrhage or mass effect.Age indeterminate small infarct involving the right cerebellum, favored to be chronic. If there is clinical concern for acute infarct, recommend MRI for further evaluation.Chronic bilateral parietal and occipital lobe infarcts. - Despite being off sedation for 48 hours, patient still has no meaningful neurologic response. . Neurology has been consulted - unable to obtain MRI as per [employer] pacemaker leads are older generation and not MRI compatible. #History of CVA in 201210/10/25 CT head negative for acute process. - Neurology consult - Off sedation since 10/08 Cardiovascular #S/p Cardiac arrest with ROSC - 09/26/2025: Witnessed at dialysis center, bystanders started CPR and AED use, ROSC achieved before EMS arrived - 10/01/2025: Rhythm: Asystole, ROSC achieved after 7 minutes of CPR - 10/01/2025: Rhythm: Asystole, ROSC achieved after 11 minutes of CPR - 10/01/2025: Rhythm: Asystole, ROSC achieved after 2 minutes of CPR # Cardiogenic shock # Lactic acidosis likely due to above - wound culture growing Enterobacter cloacae MDR, VRE Enterococcus faecalis. - Levophed 2 mcg, now discontinued - Epinephrine has been discontinued # Acute on chronic HFrEF - BNP 1232.11 - Echocardiogram 08/22/2025: LVEF of 20-25%, Severe LV dysfunction, moderate mitral regurgitation - Per cardiology: Diuretics with lasix, aspirin, nitroglycerin SL - Lasix 40 mg IV daily - S/p pacemaker placement # Bilateral pleural effusion - Chest xray 10/12/2025: No significant interval change. #Hypertension - Amlodipine held by nephrology Respiratory # Acute hypoxic hypercapnic respiratory failure # Ventilator -Intubated (10/01/2025) -On [facility] vent : VCAC Mode RR 18 TV 450ml, PEEP Of 8 and FiO2 of 4045% - 8.0 endotracheal tube, 24 at the lip - Cutlures from sputum: Normal orophargyngeal elpidio GI # Peptic ulcer prophylaxis -Pantoprazole 40 mg IV daily # Rosales catheter draining clear urine placed on 10/09/2025 Nephrology # ESRD on hemodialysis - Received dialysis without complication and without pressor support on 10/13/2025 with 2 L removed - Strict Is and Os # Severe diabetic nephropathy # Acute metabolic alkalosis # Secondary hyperparathyroidism # Hypocalcemia - Monitor - Calcitrol # Hyperphosphatemia - Phosphate binders #Hypokalemia, resolved Infectious disease # Infected sacral wound growing carbapenem resistant enterococci # Possible cellulitis secondary to lower extremity ulcers, , leg wound growing E coli # Complicated UTI growing MDR cloacae, VRE - IV linezolid, now discontinued - started patient on IV gentamicin per pharmacy, now discontinued - consulted infectious disease; per ID to discontinue systemic antibiotics likely colonization #Septic vs Cardiogenic shock - blood Cultures: Negative at 72 hours - Ceftriaxone 1 g IV daily, now discontinued Hem/onc # Thrombocytopenia, improved - Monitor # Normocytic anemia, likely due to chronic disease - Monitor Hand H - Per nephrology: Epogen 23787 SQ 3 weekly as tolerated Endocrine #Type 2 diabetes mellitus - SSI -Accu cheks MSK # Gout - Allopurinol 300 mg PO daily Skin # Circular ulcers present on right leg, present on admission # Possible Sacral Ulcer stage 2, present on admission - Wound culture: VRE - Meropenem 500 mg daily, discontinued - Linezolid 600 mg IV q 12 hours , now discontinued Psychiatry # Marijuana use disorder DVT prophylaxis: SCD PUD prophylaxis: Pantoprazole 40 mg IV daily Lines -R femoral central line: 10/01/2025, discontinued on 10/15/2025. - thigh PICC line placed on 10/15/2025 -Rosales catheter 10/09/2025 -ET tube: 10/01/2025 - Tunneled catheter in right pectoral region Patient has right femoral line given the presence of right tunnel catheter in right pectoral region and pacemaker in left field. We will give the patient more time for sedation to wear off for accurate neurological evaluation. Drips during [facility] ventilation Fentanyl Discontinued Propofol: dc'ed Bicarbonate drip discontinued Levophed discontinued Critical care time 79 minutes excluding procedure. Code status discussed greater than 20 minutes: Full CODE STATUS. Detailed conversation held with patient's sister at bedside where prognosis was explained, per patient's sister would like to wait until Sunday before deciding for compassionate extubation versus tracheostomy. Plan discussed with Dr. Rivera Plan discussed with: Other (Nurses) Dietary Evaluation Review Comments: Nutrition Recommendation: 1) CCHO 75gm + renal standard diet 2) Pro-stat 1 pk BID 3) Nephro-nellie 1 tab daily 4) Monitor PO intake, lab values, weight trend, and I/O Expected Outcomes/Goals: Wound to improve Intake to meet >75% estimated needs FU 3-5 days Visit Coding STANDARD RES Billing Provider: JEREMIAH RIVERA MD Date of Service if different f: Oct 24, 2025 Common Visit Codes: 99801-[id number] CARE 30-74 MIN, [id number] CARE-EACH +30MIN SEUN RUBIN RESIDENT Oct 24, 2025 13:51
--- NOTE | 2025-10-24 16:52 | DVHPN2 ---
Progress Note - Dictate Date Seen: Oct 24, 2025 Has the PT tested + for MRSA If YES, has PT been informed?: No Medical Necessity Reason Pt with a Central, PICC or Fol: Yes The following are medically ne: Central Line, Rosales Catheter Reason for rosales catheter: Strict I&O Subjective Patient was seen and evaluated in follow up in the ICU. Patient is intubated and sedated on ventilator. 30% FiO2. Nurse reported spontaneous eye opening. Eye opening on sternal rub. Patient is minimally sedated, remained nonverbal. Planned compassionate extubation and potential discharge to board and care with hospice. HGB 8.1, HCT 25.1, BUN 37, Chief Scientific Officer 3.71. Chest x-ray shows extensive pulmonary edema and mild cardiomegaly vital signs Vital Sign Date Time Temp Pulse Resp B/P (MAP) Pulse Ox O2 Delivery O2 Flow Rate FiO2 10/24/25 16:00 97.7 75 19 144/67 (92) 97 97.7 10/24/25 16:00 Mechanical Ventilator+ 30 30 Total Intake and Output 10/23/25 10/23/25 10/24/25 15:00 23:00 07:00 Intake Total 8.2 ml 756.185 ml 545.74 ml Output Total 85 ml 60 ml Balance 8.2 ml 671.185 ml 485.74 ml medications Current Medications Medications Dose Ordered Sig/Esteban Route Start Time Stop Time Status Last Admin Dose Admin Diagnostic Test (Pha) 1 strip ACHS 09/26/25 22:00 10/24/25 11:37 1 STRIP Insulin Human Regular ACHS SC 09/26/25 22:00 10/24/25 11:36 3 UNITS Dextrose 50 ml UD PRN IV 09/26/25 21:15 Amino Acid Protein 30 ml BID PO 09/30/25 22:00 10/24/25 10:14 30 ML Multivit/Ca Carb/ B Cmplx/FA/Prenat 1 tab DAILY PO 09/30/25 11:12 10/24/25 10:13 1 TAB Albumin Human 100 ml @ 100 mls/hr ANABELLA PRN IV 10/03/25 09:45 10/07/25 17:42 100 MLS/HR Aspirin 81 mg DAILY NG 10/05/25 10:00 10/24/25 10:13 81 MG Enteral Nutritional Formula 1,000 ml 40ML/HR GT 10/04/25 18:30 10/24/25 01:20 1,000 ML Famotidine 10 mg HS IV 10/07/25 22:00 10/23/25 21:54 10 MG Albuterol 2.5 mg Q6HR NEB 10/08/25 12:00 10/24/25 11:12 2.5 MG Ipratropium [place] 0.5 mg Q6HR NEB 10/08/25 12:00 10/24/25 11:12 0.5 MG Artificial Tears 2 drop Q2HP PRN EACHEYE 10/08/25 14:30 Levetiracetam 100 ml @ 400 mls/hr BID IV 10/11/25 22:00 10/24/25 10:13 400 MLS/HR Lorazepam 1 mg Q5MINP PRN IV 10/11/25 21:00 Epoetin Mohan-epbx 10,000 unit MWF@2100 SC 10/12/25 21:00 Hold 10/19/25 21:57 10,000 UNIT Gentamicin Sulfate 0 ml @ 0 mls/hr PER PHARMACY IV 10/12/25 18:15 Cancel Sodium Chloride 10 ml QSHIFT@10,22 IV 10/15/25 22:00 10/24/25 10:14 10 ML Calcium Acetate 667 mg TIDWMEALS PO 10/18/25 18:00 10/24/25 11:38 667 MG Hydralazine HCl 10 mg Q6HP PRN IV 10/18/25 14:45 Acetaminophen 650 mg Q6HP PRN PO 10/21/25 13:00 Cancel objective GENERAL: Ill appearing, intubated on ventilator. Morbidly obese. EYES: PERRL, EOMI. Anicteric. HENT: Moist mucous membranes. LUNGS: Decreased breath sounds. CARDIOVASCULAR: Regular rate and rhythm. ABDOMEN: Soft, non-tender and non-distended. EXTREMITIES: No edema. SKIN: Warm, dry. laboratory and microbiology Laboratory Tests 10/24/25 03:45 Test 10/24/25 03:45 Range/Units Serum Glucose 164 H 74-106 mg/dL Problem List Acute syncopal episode. Status post cardiac arrest x3. ESRD on hemodialysis. Hypertension. Peripheral neuropathy. Severe peripheral artery disease. Acute on chronic congestive heart failure exacerbation. History of CVA. Anemia of chronic disease. Diabetes with severe diabetic nephropathy. History of pacemaker. Morbidly obese. Decompensated heart failure with ejection fraction less than 25%. Encephalomalacia. Hyperphosphatemia. Hyperparathyroidism. Assessment/Plan Continued all current supportive medical care. Aspirin. IV Hydralazine for SBP >180. Vasopressors for hemodynamic support. Additional plan as per the hospital course. Critical care time of 45 minutes provided to include time spent evaluation of patient at bedside, when appropriate patient/family education for diagnosis, treatment plan, review of pertinent medical information and discussion of care with specialty providers and PCP. Mechanical ventilator parameters, treatment and adjustments have personally been reviewed by me and treatment plan by economic consultant has also been reviewed. Dietary Evaluation Review Comments: Nutrition Recommendation: 1) CCHO 75gm + renal standard diet 2) Pro-stat 1 pk BID 3) Nephro-nellie 1 tab daily 4) Monitor PO intake, lab values, weight trend, and I/O Expected Outcomes/Goals: Wound to improve Intake to meet >75% estimated needs FU 3-5 days Plan discussed with: Other MATTHEW CIFUENTES MD Oct 24, 2025 16:52
[2025-10-24] MEDS: EPOETIN ALFA-EPBX 10,000 UNIT/1ML VIAL SC ONE (21:16)
--- NOTE | 2025-10-24 23:27 | DVHPN2 ---
[facility] DOS: 10/24/2025 Patient seen and examined at bedside. Intubated on mechanical ventilator. Overnight events reviewed. Reviewed: Care Plan, H&P, Labs, Medications, Previous Orders, Radiology Changes from previous H/P or p: No Changes Eyes: No Pain, No Vision change, No Conjunctivae inflammation, No Eyelid inflammation, No Other, No Redness ENT: No Ear pain, No Ear discharge, No Nose pain, No Nose discharge, No Nose congestion, No Mouth pain, No Mouth swelling, No Throat pain, No Throat swelling, No Other Cardiovascular: Chest Pain; No Palpitations, No Orthopnea, No Paroxysmal Noc. Dyspnea, No Edema, No Lt Headedness, No Other Respiratory: No Cough, No Dry, No Shortness of breath, No SOB with excertion, No Wheezing, No Hemoptysis, No Pleuritic Pain, No Sputum, No Other Gastrointestinal: No Nausea, No Vomiting, No Abdominal Pain, No Diarrhea, No Constipation, No Melena, No Hematochezia, No Other Genitourinary: No Dysuria, No Frequency, No Incontinence, No Hematuria, No Retention; Other (On hemodialysis) Musculoskeletal: No other, No neck pain, No shoulder pain, No arm pain, No back pain, No hand pain, No leg pain, No foot pain Skin: No Rash, No Lesions, No Jaundice, No Bruising, No Other Objective Vitals Vital Signs Date Time Temp Pulse Resp B/P (MAP) Pulse Ox O2 Delivery O2 Flow Rate FiO2 10/24/25 22:04 72 20 138/38 (71) 98 30 10/24/25 20:00 Mechanical Ventilator+ 10/24/25 16:00 97.7 97.7 Intake/Output Intake and Output 10/24/25 07:00 Intake Total 1310.125 ml Output Total 145 ml Balance 1165.125 ml Intake Oral 200 ml IV Total 270.125 ml Tube Feeding 840 ml Output Urine Total 125 ml Stool Total 20 ml Exam Gen.: Patient lying in bed in medical ICU. Intubated on mechanical ventilator. Head: Normocephalic, atraumatic. Eyes: PERRLA. Ears: Normal external anatomy. Throat: Endotracheal tube and orogastric tube in place. Neck: Supple, trachea midline. Chest: Transmitted breath sounds bilaterally. Decreased air entry bilaterally. No wheezing. Bibasilar crackles. Cardiovascular: Positive S1, positive S2. Regular rate and rhythm. Abdomen: Positive bowel sounds in all 4 quadrants. Soft, nontender, nondistended. : Salas in place. Normal external genitalia. Rectal: Deferred. Skin: Warm, dry. Intact. Extremities: 2+ radial pulses bilaterally. No lower extremity edema. Neuro: Off sedation Medications Current Medications Medications Dose Ordered Sig/Esteban Route Start Time Stop Time Status Last Admin Dose Admin Diagnostic Test (Pha) 1 strip ACHS 09/26/25 22:00 10/24/25 21:34 1 STRIP Insulin Human Regular ACHS SC 09/26/25 22:00 10/24/25 21:37 3 UNITS Dextrose 50 ml UD PRN IV 09/26/25 21:15 Amino Acid Protein 30 ml BID PO 09/30/25 22:00 10/24/25 21:33 30 ML Multivit/Ca Carb/ B Cmplx/FA/Prenat 1 tab DAILY PO 09/30/25 11:12 10/24/25 10:13 1 TAB Albumin Human 100 ml @ 100 mls/hr ANABELLA PRN IV 10/03/25 09:45 10/07/25 17:42 100 MLS/HR Aspirin 81 mg DAILY NG 10/05/25 10:00 10/24/25 10:13 81 MG Enteral Nutritional Formula 1,000 ml 40ML/HR GT 10/04/25 18:30 10/24/25 01:20 1,000 ML Famotidine 10 mg HS IV 10/07/25 22:00 10/24/25 21:21 10 MG Albuterol 2.5 mg Q6HR NEB 10/08/25 12:00 10/24/25 18:24 2.5 MG Ipratropium Mckenney 0.5 mg Q6HR NEB 10/08/25 12:00 10/24/25 18:24 0.5 MG Artificial Tears 2 drop Q2HP PRN EACHEYE 10/08/25 14:30 Levetiracetam 100 ml @ 400 mls/hr BID IV 10/11/25 22:00 10/24/25 21:20 400 MLS/HR Lorazepam 1 mg Q5MINP PRN IV 10/11/25 21:00 Epoetin Mohan-epbx 10,000 unit MWF@2100 CT 10/12/25 21:00 Hold 10/19/25 21:57 10,000 UNIT Gentamicin Sulfate 0 ml @ 0 mls/hr PER PHARMACY IV 10/12/25 18:15 Cancel Sodium Chloride 10 ml QSHIFT@10,22 IV 10/15/25 22:00 10/24/25 21:24 10 ML Calcium Acetate 667 mg TIDWMEALS PO 10/18/25 18:00 10/24/25 17:53 667 MG Hydralazine HCl 10 mg Q6HP PRN IV 10/18/25 14:45 Acetaminophen 650 mg Q6HP PRN PO 10/21/25 13:00 Cancel Laboratory Results Laboratory Tests 10/24/25 03:45 Chemistry Test 10/24/25 03:45 Calcium Level 9.5 mg/dL (8.7-10.4) Urinalysis Test 10/08/25 22:28 Urine Color Dark-brown (Yellow) Urine Clarity Ex.turbid (Clear) Urine pH 6.0 (5.0-9.0) Urine Specific [place] 1.017 (1.001-1.035) Urine Protein 2+ (Negative) H Urine Ketones Negative (Negative) Urine Blood 3+ /uL (Negative) H Urine Nitrite Negative (Negative) Urine Bilirubin Negative (Negative) Urine Urobilinogen Normal mg/dL (Negative) Urine Leukocyte Esterase 3+ /uL (Negative) Urine RBC 320 /hpf (0 - 3) Urine WBC Clumps Present /hpf (None Seen) Urine Microscopic WBC 1809 /HPF (0-3) H Urine Squamous Epithelial Cells Many /hpf (<5) Urine Amorphous Crystals Few /hpf (None Seen) Urine Bacteria Many /hpf (None Seen) H Urine Mucus Few (None Seen) Urine Glucose Normal mg/dL (Normal) Blood Gas Results Test 10/24/25 07:28 Arterial Blood pH 7.482 (7.350-7.450) FiO2 % 30.0 Microbiology Microbiology Date/Time Source Procedure Growth Status 10/08/25 22:28 Urine - [place] Urine Culture - Final Complete 10/06/25 13:00 Sacrum Gram Stain - Final Resulted 10/06/25 13:00 Wound Culture - Preliminary Enterobacter cloacae Enterococcus faecalis - VRE Resulted 10/02/25 17:33 Blood Blood Culture - Final NO GROWTH AFTER 5 DAYS OF INCUBATION. Complete Assessment/Plan Assessment/Plan Impression: Acute hypoxic respiratory failure On mechanical ventilator Lactic acidosis S/p cardiac arrest Acute on chronic CHF ESRD, on hemodialysis DM type II Shock Morbid obesity Cellulitis Sacral ulcer Events: Remains on vent support On AC mode; RR 18, VT 450, PEEP 5, FiO2 40% Off sedation since 10/08/25 On Precedex drip Head of bed elevation Aspiration precautions Glycopyrrolate PRN for increased oral secretions. ABG notable for alkalemia Chest x-ray shows extensive pulmonary edema and mild cardiomegaly. Off pressors, hemodynamically stable. Patient noted to have increased pressor requirements during HD. Continue hemodialysis per Nephrology Monitor hemoglobin Transfuse if less than 7.0 g/dL. Continue bronchodilators Completed antibiotics Antiepileptic with Keppra Hemodialysis per Nephrology Follow up Nephrology recs Monitor renal function Salas was exchanged 10/09. Tube feeds for nutritional support Wound care Patient has poor prognosis, poor chance of meaningful recovery. Family discussion held regarding goals of care. Possible plan for compassionate extubation on Sunday CT head revealed no acute intracranial abnormality. 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 Likely chronic right cerebellar infarct. KUB showed nonobstructive bowel gas pattern. Labs and imaging reviewed. Rest of plan as noted below. Plan: s/p intubation on mechanical ventilator. On AC mode; RR 18, VT 450, PEEP 5, FiO2 40% Titrate FIO2 to keep O2 saturation above 90%. VAP bundle. Daily ABG and CXR while intubated Pressors as necessary for hemodynamic support Titrate to keep mean arterial pressure greater than 65 mmHg. Antibiotics. Follow up cultures. HD per Nephrology Diurese to euvolemia Monitor renal function Monitor electrolytes. Supplement as necessary. Monitor ins and outs. Recommend judicious use of fluids due to CHF. Wound care Monitor lactic acid. Obesity complicates all care GI prophylaxis. DVT prophylaxis. Prognosis: Poor given patient's multiple co-morbidities. Condition: Critical Rest of plan per hospitalist and other consultants. A total of 35 minutes of critical care time was spent reviewing the patient record, examining the patient, making a diagnostic and therapeutic plan, discussing this plan with the medical personnel, following up on diagnostic studies and following the patient for clinical stability excluding any and all procedures. At least 50% of this time was spent in direct, [id number] contact. Thank you, Dr. Cantu, for allowing me to participate in this patient's care. Further recommendations will depend on the patient's clinical course. Please do not hesitate to contact me if you have any questions or concerns. This medical document was created using an electronic medical record system with [employer] dictation system. Although these documentations are being carefully reviewed, there may still be some phonetic and typographical changes. The errors are purely typographical, due to imperfection on the software program, and do not reflect any compromise in the patient's medical care. Plan discussed with: Other (RN) Visit Coding Pulmonary Billing Provider: JEREMIAH GAMEZ MD Date of Service if different f: Oct 24, 2025 Common Visit Codes: [id number] INP/OBS CARE(HIGH), [id number] CARE 30-74 MIN JEREMIAH GAMEZ MD Oct 24, 2025 23:27
[2025-10-25] VITALS (101 sets, daily range): BP systolic 127–161; BP diastolic 47–81; PULSE 63–83; RESP 12–23; TEMP 98–99.4; O2SAT 96–100
--- NOTE | 2025-10-25 01:55 | DVHPN2 ---
Consult Progress Note Objective vital signs Vital Sign Date Time Temp Pulse Resp B/P (MAP) Pulse Ox O2 Delivery O2 Flow Rate FiO2 10/25/25 01:30 77 16 141/56 (84) 98 10/25/25 00:09 30 10/25/25 00:00 98.0 98.0 10/25/25 00:00 Mechanical Ventilator+ Total Intake and Output 10/24/25 10/24/25 10/25/25 15:00 23:00 07:00 Intake Total 228.7 ml 836.0 ml 16.5 ml Output Total 200 ml Balance 228.7 ml 636.0 ml 16.5 ml medications Current Medications Medications Dose Ordered Sig/Esteban Route Start Time Stop Time Status Last Admin Dose Admin Diagnostic Test (Pha) 1 strip ACHS 09/26/25 22:00 10/24/25 21:34 1 STRIP Insulin Human Regular ACHS SC 09/26/25 22:00 10/24/25 21:37 3 UNITS Dextrose 50 ml UD PRN IV 09/26/25 21:15 Amino Acid Protein 30 ml BID PO 09/30/25 22:00 10/24/25 21:33 30 ML Multivit/Ca Carb/ B Cmplx/FA/Prenat 1 tab DAILY PO 09/30/25 11:12 10/24/25 10:13 1 TAB Albumin Human 100 ml @ 100 mls/hr ANABELLA PRN IV 10/03/25 09:45 10/07/25 17:42 100 MLS/HR Aspirin 81 mg DAILY NG 10/05/25 10:00 10/24/25 10:13 81 MG Enteral Nutritional Formula 1,000 ml 40ML/HR GT 10/04/25 18:30 10/24/25 01:20 1,000 ML Famotidine 10 mg HS IV 10/07/25 22:00 10/24/25 21:21 10 MG Albuterol 2.5 mg Q6HR NEB 10/08/25 12:00 10/24/25 23:53 2.5 MG Ipratropium Camilla 0.5 mg Q6HR NEB 10/08/25 12:00 10/24/25 23:53 0.5 MG Artificial Tears 2 drop Q2HP PRN EACHEYE 10/08/25 14:30 Levetiracetam 100 ml @ 400 mls/hr BID IV 10/11/25 22:00 10/24/25 21:20 400 MLS/HR Lorazepam 1 mg Q5MINP PRN IV 10/11/25 21:00 Epoetin Mohan-epbx 10,000 unit MWF@2100 SC 10/12/25 21:00 Hold 10/19/25 21:57 10,000 UNIT Gentamicin Sulfate 0 ml @ 0 mls/hr PER PHARMACY IV 10/12/25 18:15 Cancel Sodium Chloride 10 ml QSHIFT@10,22 IV 10/15/25 22:00 10/24/25 21:24 10 ML Calcium Acetate 667 mg TIDWMEALS PO 10/18/25 18:00 10/24/25 17:53 667 MG Hydralazine HCl 10 mg Q6HP PRN IV 10/18/25 14:45 Acetaminophen 650 mg Q6HP PRN PO 10/21/25 13:00 Cancel laboratory and microbiology Laboratory Tests 10/24/25 03:45 Test 10/24/25 03:45 Range/Units Serum Glucose 164 H 74-106 mg/dL Problem List/Assessment/Plan Problem List/Assessment/Plan ASSESSMENT AND PLAN: ID Problem List: \-- [id number] cardiac arrest at dialysis center with bystander CPR and AED shock \-- In-hospital bradycardia/asystolic arrest during hemodialysis on 10/01 with prolonged CPR and defibrillation \-- Acute hypoxic respiratory failure requiring mechanical ventilation \-- Multifocal pulmonary airspace disease and pulmonary vascular congestion (pulmonary edema/contusions) after multiple CPR events and underlying CHF \-- CKD on chronic hemodialysis (reported schedule Sunday//Sunday) \-- CHF \-- Diabetes mellitus \-- Hypertension \-- History of stroke \-- Pacemaker in situ (triple-lead on CXR) \-- Chronic thrombocytopenia (platelets progressively decreased from ~115K on admission to 60K on 10/01; most recent ~89K) \-- Sacrococcygeal pressure ulcer (full-thickness, granulating, no drainage/odor) \-- Right anterior ulcer (granulating, no drainage/edema) \-- Multiple left plantar blood-filled blisters and calluses (no deep tissue involvement) \-- Scattered skin ulcers/eschar likely related to peripheral arterial disease and pressure injuries \-- Wound culture (10/06) with VRE and carbapenem-resistant Enterobacter (CRE), currently felt to represent colonization \-- Pneumonia vs pulmonary edema/contusions treated empirically with ceftriaxone clindamycin, later meropenem \-- Current antibiotic regimen: linezolid + gentamicin per pharmacy at the time of this consult Assessment: Theo Zamora is a 59-year-old male with CKD on chronic hemodialysis (//Sun), CHF, history of stroke, diabetes, and hypertension who initially had a syncopal episode and cardiac arrest at the dialysis center. He received bystander CPR and AED shock; on EMS arrival he was awake, alert, and oriented x4 (GCS 15) but had chest wall pain. Initial evaluation showed leukocyte count 7.5, hemoglobin 9.8, platelets 115K, sodium 142, BUN 43, creatinine 6.85. CT head revealed no acute intracranial hemorrhage or mass effect but did show chronic encephalomalacia and chronic microvascular ischemic changes. CXR showed a triple-lead pacemaker and bilateral airspace opacities and pleural effusions without fractures, interpreted as pulmonary contusions and congestion. He was admitted to telemetry and subsequently developed a second arrest on 10/01 while on hemodialysis, with bradycardia progressing to asystole. He received chest compressions for 14 minutes and defibrillation at approximately 14 minutes 22 seconds. Post-code lactic acid was 5.7, improving to 1.9 after return of circulation and fluid resuscitation. Labs on 10/01: WBC 7.2, hemoglobin 8.6, platelets 60K, sodium 140, potassium 4.6, BUN 51, creatinine 7.46, glucose 100, liver enzymes unremarkable. He required intubation and mechanical ventilation (FiO2 50%, PEEP 5 initially), vasopressor support with norepinephrine (Levophed), and empiric antibiotics (ceftriaxone for pneumonia coverage; clindamycin for pneumonia and skin injuries). Respiratory cultures on 10/01 showed normal respiratory elpidio; cultures on 10/02 showed no growth to date. CXR and KUB showed colonic distension with NG tube in the stomach, and moderate multifocal bilateral pulmonary airspace disease with pulmonary vascular congestion. Vasopressor requirements gradually improved and were discontinued; he has now been off pressors for approximately 5 days. FiO2 has improved to 30% with PEEP 5, though CXR continues to show unchanging multifocal airspace disease. On exam he has multiple skin injuries, including a sacrococcygeal full-thickness ulcer (2.5 x 0.2 cm) with healthy granulation tissue and no odor or significant drainage, and a right anterior ulcer (3 x 4 cm) with healthy granulation and epithelium, no drainage, exudate, or surrounding swelling/edema. Eschar is noted on toes and ankle in areas of prior ulcers/ischemic disease. There are multiple left plantar foot blood-filled blisters and calluses; de-roofed blisters reveal intact underlying skin with no deeper edema or induration. These injuries are thought to be related to peripheral arterial disease, pressure, and thrombocytopenia-related skin fragility. Wound care is being provided. A wound culture on 10/06 grew VRE and a multidrug-resistant Enterobacter (carbapenem-resistant), sensitive only to gentamicin. Current antibiotics include linezolid and gentamicin per pharmacy. Clinically, there are no signs of cellulitis at the wound sites, no diarrhea, no reports of new drainage or local changes, and no ongoing hemodynamic instability or other signs of sepsis. The VRE and Enterobacter are felt to represent colonization of chronic wounds rather than active invasive infection at this time. Given his advanced CKD on dialysis and chronic thrombocytopenia (platelets <100K), the risks of gentamicin (nephrotoxicity/ototoxicity in a dialysis patient) and linezolid (worsening thrombocytopenia) likely outweigh the benefits in the absence of clear evidence of active systemic infection. 10/13: hemodynamically stable off antibiotics 10/14: urine culture w. rosales catheter sampled oliguric urine growing VRE and enterobacter - consistent with colonization Plan: 0. will continue to monitor patient off all antibiotics 1\. Wound colonization with VRE and CRE Enterobacter (no current evidence of invasive infection): \-- Wound culture (10/06) with VRE and carbapenem-resistant Enterobacter likely represents colonization of chronic pressure/ischemic ulcers rather than active infection based on current exam (granulation tissue, lack of drainage, lack of surrounding erythema/edema, no systemic signs of sepsis). // Likewise, urine sample from oliguric patient sampled from a rosales catheter placed at time of admission would like represent stagnant urine breeding colonized bacteria. \-- Recommend stop all systemic antibiotics at this time, including linezolid and gentamicin, given: Lack of clinical evidence for active invasive infection High risk of ototoxicity/nephrotoxicity from gentamicin in a dialysis patient Risk of worsening thrombocytopenia with linezolid in a patient with platelets <100K \-- Continue meticulous local wound care as per wound care nursing and primary team. \-- Monitor wounds closely for any new drainage, malodor, increased pain, erythema, warmth, or expansion, which would raise concern for superimposed infection. 2\. Acute hypoxic respiratory failure; multifocal airspace disease (pulmonary edema/contusions; possible pneumonia): \-- Currently mechanically ventilated with FiO2 ~30% and PEEP 5; off vasopressors for ~5 days. \-- Continue ventilator weaning as tolerated per ICU/primary team. \-- Continue aggressive volume management and diuresis in concert with hemodialysis to address pulmonary edema as seen on CXR. \-- At present, respiratory cultures show only normal elpidio or no growth; there are no clear signs of active, progressive pneumonia distinct from pulmonary edema/contusion. \-- If clinical concern for sepsis or worsening pneumonia arises (e.g., new fever, leukocytosis, rising vasopressor requirement, worsening oxygenation, hypotension, new purulent secretions): Obtain repeat sputum culture from a tracheal aspirate or tracheal wash. Reinitiate empiric therapy for hospital-acquired pneumonia. Options discussed include: Piperacillin-tazobactam (Zosyn) or cefepime for Pseudomonas and broad gram-negative coverage. At this time, VRE and carbapenem-resistant Enterobacter from the sacral wound are not felt to be significantly contributing to the pulmonary process or overall clinical picture, and targeted therapy against these organisms is not recommended absent evidence of invasive disease. 3\. Chronic kidney disease on hemodialysis; risk of electrolyte-related arrhythmia and arrest: \-- Continue scheduled hemodialysis (reported Sunday//Sunday) with careful monitoring of potassium and other electrolytes, especially in the olga- dialysis period given prior arrest during hemodialysis. \-- Avoid nephrotoxic antibiotics where possible; specifically recommend discontinuation of gentamicin as above. \-- Continue close hemodynamic and rhythm monitoring during dialysis sessions. 4\. Chronic thrombocytopenia: \-- Platelet count has declined from ~115K on admission to as low as 60K, with recent level around 89K. \-- Avoid linezolid in the setting of chronic thrombocytopenia where possible, as recommended above. \-- Monitor platelet counts serially. \-- Transfusion and further hematologic evaluation to be directed by the primary/ICU team. 5\. Skin ulcers, pressure injuries, and ischemic lesions: \-- Continue dedicated wound care with: Sacrococcygeal ulcer (2.5 x 0.2 cm, full thickness, granulating, no drainage/odor). Right anterior ulcer (3 x 4 cm, healthy granulation and epithelium, no drainage or surrounding edema). Eschar on toes and ankle at prior ulcer/ischemic sites. Multiple left plantar blood-filled blisters and calluses, with blisters de-roofed to healthy underlying tissue and no deep edema or induration. \-- Maintain offloading and repositioning strategies to avoid further pressure on sacrum and other bony prominences; defer specific dressing and positioning regimens to wound care nursing. \-- No systemic antibiotics indicated for these wounds at present, in the absence of cellulitis or systemic signs of infection. 6\. Cardiovascular status; postcardiac arrest care: \-- He has had two significant cardiac events ([id number] arrest at dialysis center; in-hospital asystolic arrest during hemodialysis). \-- Etiology remains unclear but may be related in part to electrolyte shifts in the setting of CKD on dialysis and underlying structural heart disease (CHF, pacemaker in place). \-- Currently off vasopressors with stable blood pressures per transcript. \-- Continue telemetry and standard postcardiac arrest care as directed by ICU/cardiology teams. \-- No additional ID-specific interventions beyond those noted. 7\. Diabetes mellitus, hypertension, CHF, history of stroke: \-- Management to be continued by primary and consulting services. \-- From an ID standpoint, these comorbidities increase risk of poor wound healing and infection; reinforce close monitoring of wounds and careful glycemic and volume control. Isolation Precautions: \-- Isolation precautions: Not specified in transcript. (Given colonization with VRE and carbapenem-resistant Enterobacter, facility policies on contact precautions should be followed as per hospital protocol; defer to hospital infection prevention team.) Plan is subject to change pending incorporation of new incoming information/diagnostics. Updates may be added as an addendum at the bottom (or top) of this note. Infectious Disease will continue to follow. Please contact the ID service with any new questions or concerns. Electronically signed by: Lc Huston MD, 10/13/2025 Authorized and Performed by: lc huston Md Total critical care time: Approximately 66 minutes Due to a high probability of clinically significant, life threatening deterioration, the patient required my highest level of preparedness to intervene emergently and I personally spent this critical care time directly and personally managing the patient. This critical care time included obtaining a history; examining the patient; pulse oximetry; ordering and review of studies; arranging urgent treatment with development of a management plan; evaluation of patient's response to treatment; frequent reassessment; and, discussions with other providers. This critical care time was performed to assess and manage the high probability of imminent, life-threatening deterioration that could result in multi-organ failure. It was exclusive of separately billable procedures and treating other patients and teaching time. Physical Exam: General: NAD Neck: Supple. No masses. HEENT: PERRL. Normal lids and conjunctiva. Moist mucous membranes. Oropharynx without lesions, exudates or excessive erythema. Normal appearance of the external aspects of the nose and ears. Heart: Regular rhythm, normal rate. No murmur. No lower extremity edema. Lungs: Normal respiratory effort. Clear to auscultation bilaterally. No wheezes. No crackles. Mechanically ventilated via endotracheal tube; most recent settings in transcript: FiO2 approximately 30%, PEEP 5 cm H?O. Abdomen: Soft. Non-tender. Non-distended. No masses or abdominal hernia. Msk: No digital cyanosis. Normal strength and tone in all 4 limbs. Chest wall tenderness and bruising present, consistent with recent CPR. Skin: Warm and dry, no rashes. Sacrococcygeal ulcer approximately 2.5 x 0.2 cm, full-thickness wound with healthy granulation tissue, no odor or significant drainage. Right anterior ulcer approximately 3 x 4 cm with healthy granulation tissue and epithelium, no drainage, exudate, or surrounding swelling/edema. Eschar noted on toes and ankle in areas of prior ulcers/ischemic disease. Multiple left plantar foot blood-filled blisters and calluses; blisters de- roofed with intact underlying skin, no signs of deeper edema or induration. Scattered skin ulceration and tissue injury consistent with peripheral arterial disease and pressure injury. Neuro: Alert. No facial droop or slurred speech. Extra-ocular movements intact. Sensation intact to soft touch in all 4 limbs. Psych: Appropriate mood. Full affect. Oriented to person, place, time, and situation. Dietary Evaluation Review Comments: Nutrition Recommendation: 1) CCHO 75gm + renal standard diet 2) Pro-stat 1 pk BID 3) Nephro-nellie 1 tab daily 4) Monitor PO intake, lab values, weight trend, and I/O Expected Outcomes/Goals: Wound to improve Intake to meet >75% estimated needs FU 3-5 days LC HUSTON MD Oct 25, 2025 01:55
[2025-10-25 03:11] LABS: Hemoglobin 7.9 g/dL (13.5-17.5)
[2025-10-25 03:13] LABS: Hematocrit 24.5 % (41.0-53.0); Mean Corpuscular Hemoglobin 31.2 pg (28.0-32.0); Mean Corpuscular Volume 96.5 fL (80.0-100.0); Nucleated Red Blood Cells % 0.2 %
[2025-10-25 03:21] LABS: Alanine Aminotransferase 21 U/L (7-40); Albumin 3.5 g/dL (3.2-4.8); Anion Gap 8 (5-15); BUN/Creatinine Ratio 10.4 (10.0-20.0); Calcium 9.1 mg/dL (8.7-10.4); Chloride 101 mmol/L (98-107); Potassium 4.1 mmol/L (3.5-5.1); Sodium 141 mmol/L (136-145); Total Protein 7.0 g/dL (5.7-8.2)
[2025-10-25 03:22] LABS: Bilirubin, Total 0.5 mg/dL (0.2-1.0)
[2025-10-25 03:27] LABS: Alkaline Phosphatase 211 U/L (46-116); Blood Urea Nitrogen 32 mg/dL (9-23); Carbon Dioxide 32 mmol/L (20-31); Glucose 176 mg/dL (74-106)
[2025-10-25] MEDS: SODIUM CHL 0.9% 1000 ML BAG XX ONE (05:16)
--- NOTE | 2025-10-25 08:19 | DVH ---
CHEST RADIOGRAPH Indication: Intubated Technique: Single frontal view of the chest was obtained COMPARISON: XY CHEST PORTABLE on DOS: 10/24/25, XY CHEST PORTABLE on DOS: 10/23/25, XY CHEST PORTABLE on DOS: 10/22/25, XY CHEST PORTABLE on DOS: 10/21/25, XY CHEST PORTABLE on DOS: 10/20/25 FINDINGS: Lines and Tubes: Left chest wall pacemaker. Tunneled right central venous catheter, endotracheal tube and enteric catheter in satisfactory position. Lungs: Low lung volumes. Increased interstitial prominence. This may represent pulmonary vascular congestion and/or viral pneumonia. Pleura: No effusion. No pneumothorax. Cardiomediastinal contours: Cardiomegaly. Bones: Unremarkable IMPRESSION: Lines and tubes in satisfactory position. Increased interstitial prominence. This may represent pulmonary vascular congestion and/or viral pneumonia. No significant interval change.
[2025-10-25 08:41] LABS: Base Excess 4.8 mmol/L (-2.0-3.0)
--- NOTE | 2025-10-25 09:33 | DVHPNRES ---
Progress Note Date Seen: Oct 25, 2025 Resident Creating Document: YOBANI GOETZ RESIDENT Has the PT tested + for MRSA If YES, has PT been informed?: No Medical Necessity Reason Pt with a Central, PICC or Fol: Yes The following are medically ne: Central Line, Rosales Catheter Reason for rosales catheter: Strict I&O Subjective Review of Systems Mr. Zamora is a 59 year old male with PMHx of ESRD with recent initiation of dialysis approximately 2 weeks ago , HFrEF with pacemaker placement, CVA in 2012, type 2 diabetes mellitus, gout, and hypertension, who presented to [facility] due to witnessed cardiopulmonary arrest during dialysis on 09/26/2025. At the time of evaluation the patient is sedated and intubated, majority of history is taken from previous medical record and his sister, Claudia Burnett. Per record, the patient became unresponsive during hemodialysis, CPR was intiated by bystanders and AED was used, by the time EMS arrived on scene the patient was found A&Ox4, GCS15, and moaning in pain. On evaluation in the ED, patient was complaining of dyspnea and chest wall pain. He was afebrile, normocardic with pacedc rhythm, hypertensive, and saturating adequately on room air. EKG showed paced rhythm with widened QTc. Initial labs are significant for normocytic anemia, hypokalemia, creatinine 6.85, BUN 43, and BNP 1232.11. Troponins were negative. UA without alteration. Chest xray significant for lungs with bilateral patchy airspace opacities, prominent pulmonary vasculature, with small bilateral pleural effusions. Head CT shows bilateral cerebral encephalomalacia and mild global cerebral volume loss without intracranial hemorrhage or mass effect. The patient was started on IV diuresis and admitted for further work up and managment. He was evaluated by cardiology who continued diuresis. The patient was evaluated by nephrology who state that given diminished cardiac function likely patient cannot tolerate large ultrafiltration goals. He was scheduled for further dialysis, having undergone dialysis on 09/28/2025 without issue. He was receiving dialysis on 10/01/2025 when he became bradycardic and went into asystole. Code blue was called and CPR was intiated with ROSC achieved after 7 minutes of CPR. He was transferred to the ICU and he entered asystole two more times in a span of 15 minutes a with ROSC achieved after 11 minutes of CPR and at 2 minutes of CPR respectively. He was intubated and started on pressors, sedation, antibiotics, and bicarbonate drip. On initial evaluation in the ICU, the patient is intubated, sedated, and mechanically ventilated, on levophed 2 mcg, pupils are reactive, no response to painful stimulus, cough and gag are present. Labs are significant for normocytic anemia, worsening thrombocytopenia, and worsening renal function. ABG is significant for metabolic alkalosis. Most recent chest xray shows worsening congestion. Past medical history: ESRD on dialysis, HFrEF, CVA in 2012, Type 2 diabetes mellitus, and hypertension Past surgical history: Pacemaker placement and replacement, Right femoral fracture repair Allergies: Denies Social: Per sister, the patient currently smokes marijuana, denies other drug use. Patient currently lives with his mother and his brother. Home meds: Famotidine, Allopurinol, pregabalin, furosemide, sevelamer, metoprolol, and lokelma 10/25/2025: Physical exam largely unchanged, continues to withdraw to pain. Equal, minimal reactive pupils, eyes not tracking. Underwent hemodialysis yesterday with 3.5 L removed. Remains on Precedex at 0.5. Objective vital signs Vital Sign Date Time Temp Pulse Resp B/P (MAP) Pulse Ox O2 Delivery O2 Flow Rate FiO2 10/25/25 07:39 75 18 145/55 (85) 100 30 10/25/25 07:30 Mechanical Ventilator+ 10/25/25 04:15 99.0 99.0 Total Intake and Output 10/24/25 10/24/25 10/25/25 15:00 23:00 07:00 Intake Total 228.7 ml 836.0 ml 555.5 ml Output Total 200 ml 50 ml Balance 228.7 ml 636.0 ml 505.5 ml medications Current Medications Medications Dose Ordered Sig/Esteban Route Start Time Stop Time Status Last Admin Dose Admin Diagnostic Test (Pha) 1 strip ACHS 09/26/25 22:00 10/25/25 06:21 1 STRIP Insulin Human Regular ACHS SC 09/26/25 22:00 10/25/25 06:13 3 UNITS Dextrose 50 ml UD PRN IV 09/26/25 21:15 Amino Acid Protein 30 ml BID PO 09/30/25 22:00 10/24/25 21:33 30 ML Multivit/Ca Carb/ B Cmplx/FA/Prenat 1 tab DAILY PO 09/30/25 11:12 10/24/25 10:13 1 TAB Albumin Human 100 ml @ 100 mls/hr ANABELLA PRN IV 10/03/25 09:45 10/07/25 17:42 100 MLS/HR Aspirin 81 mg DAILY NG 10/05/25 10:00 10/24/25 10:13 81 MG Enteral Nutritional Formula 1,000 ml 40ML/HR GT 10/04/25 18:30 10/25/25 04:33 1,000 ML Famotidine 10 mg HS IV 10/07/25 22:00 10/24/25 21:21 10 MG Albuterol 2.5 mg Q6HR NEB 10/08/25 12:00 10/25/25 06:36 2.5 MG Ipratropium [place] 0.5 mg Q6HR NEB 10/08/25 12:00 10/25/25 06:36 0.5 MG Artificial Tears 2 drop Q2HP PRN EACHEYE 10/08/25 14:30 Levetiracetam 100 ml @ 400 mls/hr BID IV 10/11/25 22:00 10/24/25 21:20 400 MLS/HR Lorazepam 1 mg Q5MINP PRN IV 10/11/25 21:00 Epoetin Mohan-epbx 10,000 unit MWF@2100 SC 10/12/25 21:00 Hold 10/19/25 21:57 10,000 UNIT Gentamicin Sulfate 0 ml @ 0 mls/hr PER PHARMACY IV 10/12/25 18:15 Cancel Sodium Chloride 10 ml QSHIFT@10,22 IV 10/15/25 22:00 10/24/25 21:24 10 ML Calcium Acetate 667 mg TIDWMEALS PO 10/18/25 18:00 10/25/25 09:27 667 MG Hydralazine HCl 10 mg Q6HP PRN IV 10/18/25 14:45 Acetaminophen 650 mg Q6HP PRN PO 10/21/25 13:00 Cancel Examination General: Patient is intubated, mechanically ventilated, somewhat-reactive to painful stimulus HEENT: Normocephalic, atraumatic, 3 mm very sluggish, no EOM, eyes open and moving, unable to track objects, ET tube in place, orogastric tube in palce Respiratory/pulmonary: Bilateral chest expansion, decreased breath sounds bilaterally, wheezing in bilateral upper lobes Cardiovascular: Normal RRR Abdomen: Obese, Abdomen nondistended, normal bowel sounds no grimacing is observed on palpation, no palpable masses. Extremities: No deformities, bilateral lower extremity pedal edema 2+ up to upper thighs, with scrotal swelling, large red circular ulcers present in right calf, presence of femoral CVC in right groin region, pulses are present, blisters present on left forearm. Left lower extremity superficial ulcer on the lateral aspect of the leg. Right lower extremity 2 superficial ulcers 1 on the medial leg and 1 on the dorsal foot. Skin: Saccrococcyx 2.5x1.2x0.5cm, moist, open, full-thickness wound with moist red granulation tissue in the wound base and a mix of pale pink collagen scar tissue and dark brown adhered eschar material on the periwound area, there is minimal odor., darkened eschar lesions on his toes Neurological: hypoactive Gag and cough noted, patient blinks but does not track movements with his eyes, does not respond to verbal commands, no response to painful stimulus. Penile ulcer noted under the foreskin laboratory and microbiology Laboratory Tests 10/25/25 02:30 Test 10/25/25 02:30 Range/Units Serum Glucose 176 H 74-106 mg/dL Microbiology Date/Time Source Procedure Growth Status 10/08/25 22:28 Urine - Rosales Port Urine Culture - Final Complete 10/06/25 13:00 Sacrum Gram Stain - Final Resulted 10/06/25 13:00 Wound Culture - Preliminary Enterobacter cloacae Enterococcus faecalis - VRE Resulted 10/02/25 17:33 Blood Blood Culture - Final NO GROWTH AFTER 5 DAYS OF INCUBATION. Complete Labs and/or images reviewed: Labs reviewed by me, Image(s) reviewed by me Problem List/Assessment/Plan Problem List/Assessment/Plan Neurology # Sedated - Precedex at 0.5 mg # Encephalomalacia - Head CT 09/26/2025: Bilateral cerebral encephalomalacia # Global cerebral volume loss - Head CT 09/26/2025: Mild global cerebral volume loss # epilepsy - Oxycarbazepine - held - IV Keppra 500 mg b.i.d. - # Concern for anoxic brain injury - Head CT 10/06/25: No acute intracranial hemorrhage or mass effect.Age indeterminate small infarct involving the right cerebellum, favored to be chronic. If there is clinical concern for acute infarct, recommend MRI for further evaluation.Chronic bilateral parietal and occipital lobe infarcts. - Despite being off sedation for 48 hours, patient still has no meaningful neurologic response. . Neurology has been consulted - unable to obtain MRI as per [employer] pacemaker leads are older generation and not MRI compatible. #History of CVA in 201210/10/25 CT head negative for acute process. - Neurology consult - Off sedation since 10/08 Cardiovascular #S/p Cardiac arrest with ROSC - 09/26/2025: Witnessed at dialysis center, bystanders started CPR and AED use, ROSC achieved before EMS arrived - 10/01/2025: Rhythm: Asystole, ROSC achieved after 7 minutes of CPR - 10/01/2025: Rhythm: Asystole, ROSC achieved after 11 minutes of CPR - 10/01/2025: Rhythm: Asystole, ROSC achieved after 2 minutes of CPR # Cardiogenic shock # Lactic acidosis likely due to above - wound culture growing Enterobacter cloacae MDR, VRE Enterococcus faecalis. - Levophed 2 mcg, now discontinued - Epinephrine has been discontinued # Acute on chronic HFrEF - BNP 1232.11 - Echocardiogram 08/22/2025: LVEF of 20-25%, Severe LV dysfunction, moderate mitral regurgitation - Per cardiology: Diuretics with lasix, aspirin, nitroglycerin SL - Lasix 40 mg IV daily - S/p pacemaker placement # Bilateral pleural effusion - Chest xray 10/12/2025: No significant interval change. #Hypertension - Amlodipine held by nephrology Respiratory # Acute hypoxic hypercapnic respiratory failure # pulmonary edema # Ventilator -Intubated (10/01/2025) -On [facility] vent : VCAC Mode RR 18 TV 450ml, PEEP Of 8 and FiO2 of 4045% - 8.0 endotracheal tube, 24 at the lip - Cutlures from sputum: Normal orophargyngeal elpidio GI # Peptic ulcer prophylaxis - Pepcid 10 mg IV daily # Rosales catheter draining clear urine placed on 10/09/2025 Nephrology # ESRD on hemodialysis - Received dialysis without complication and without pressor support on 10/13/2025 with 2 L removed - Strict Is and Os # Severe diabetic nephropathy #Acute metabolic alkalosis # Secondary hyperparathyroidism # Hypocalcemia - Monitor - Calcitrol # Hyperphosphatemia - Phosphate binders Infectious disease # 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 # Possible cellulitis secondary to lower extremity ulcers, , leg wound growing E coli # Complicated UTI growing MDR cloacae, VRE - IV linezolid, now discontinued - started patient on IV gentamicin per pharmacy, now discontinued - consulted infectious disease; per ID to discontinue systemic antibiotics likely colonization #Septic vs Cardiogenic shock - blood Cultures: Negative at 72 hours - Ceftriaxone 1 g IV daily, now discontinue Hem/onc #Thrombocytopenia, improved - Monitor #Normocytic anemia, likely due to chronic disease - Monitor Hand H - Per nephrology: Epogen 21043 SQ 3 weekly as tolerated Endocrine #Type 2 diabetes mellitus - SSI -Accu cheks MSK # Gout - Allopurinol 300 mg PO daily Skin # Circular ulcers present on right leg, present on admission # Possible Sacral Ulcer stage 2, present on admission - Wound culture: VRE - Meropenem 500 mg daily, discontinued - Linezolid 600 mg IV q 12 hours , now discontinued Marijuana use DVT prophylaxis: SCD Lines -R femoral central line: 10/01/2025, discontinued on 10/15/2025. - thigh PICC line placed on 10/15/2025 -Rosales catheter 10/09/2025 -ET tube: 10/01/2025 - Tunneled catheter in right pectoral region Drips during [facility] ventilation Fentanyl Discontinued Propofol: dc'ed Bicarbonate drip discontinued Levophed discontinued Critical care time 82 minutes excluding procedure. Code status discussed greater than 20 minutes: DNR Detailed conversation held with patient's sister at bedside where prognosis was explained, per patient's sister would like to compassionate extubation on Sunday10/26/[address] Rivera Plan discussed with: Patient, Other (RN) Dietary Evaluation Review Comments: Nutrition Recommendation: 1) CCHO 75gm + renal standard diet 2) Pro-stat 1 pk BID 3) Nephro-nellie 1 tab daily 4) Monitor PO intake, lab values, weight trend, and I/O Expected Outcomes/Goals: Wound to improve Intake to meet >75% estimated needs FU 3-5 days Visit Coding STANDARD RES Billing Provider: JEREMIAH RIVERA MD Date of Service if different f: Oct 25, 2025 Common Visit Codes: 34671-[id number] CARE 30-74 MIN, [id number] CARE-EACH +30MIN GOETZ,EMAN RESIDENT Oct 25, 2025 09:33
--- NOTE | 2025-10-25 10:09 | DVHPN2 ---
Progress Note Date Seen: Oct 25, 2025 Has the PT tested + for MRSA If YES, has PT been informed?: No Medical Necessity Reason Pt with a Central, PICC or Fol: Yes The following are medically ne: Central Line, Rosales Catheter Reason for rosales catheter: Strict I&O Subjective Review of Systems: RESPIRATORY:Abnormal Other Systems: Patient seen and examined by myself today in follow-up, patient remained intubated on ventilator Objective vital signs Vital Sign Date Time Temp Pulse Resp B/P (MAP) Pulse Ox O2 Delivery O2 Flow Rate FiO2 10/25/25 07:39 75 18 145/55 (85) 100 30 10/25/25 07:30 Mechanical Ventilator+ 10/25/25 04:15 99.0 99.0 Total Intake and Output 10/24/25 10/24/25 10/25/25 15:00 23:00 07:00 Intake Total 228.7 ml 836.0 ml 555.5 ml Output Total 200 ml 50 ml Balance 228.7 ml 636.0 ml 505.5 ml medications Current Medications Medications Dose Ordered Sig/Esteban Route Start Time Stop Time Status Last Admin Dose Admin Diagnostic Test (Pha) 1 strip ACHS 09/26/25 22:00 10/25/25 06:21 1 STRIP Insulin Human Regular ACHS SC 09/26/25 22:00 10/25/25 06:13 3 UNITS Dextrose 50 ml UD PRN IV 09/26/25 21:15 Amino Acid Protein 30 ml BID PO 09/30/25 22:00 10/25/25 10:06 30 ML Multivit/Ca Carb/ B Cmplx/FA/Prenat 1 tab DAILY PO 09/30/25 11:12 10/25/25 10:06 1 TAB Albumin Human 100 ml @ 100 mls/hr ANABELLA PRN IV 10/03/25 09:45 10/07/25 17:42 100 MLS/HR Aspirin 81 mg DAILY NG 10/05/25 10:00 10/25/25 10:06 81 MG Enteral Nutritional Formula 1,000 ml 40ML/HR GT 10/04/25 18:30 10/25/25 04:33 1,000 ML Famotidine 10 mg HS IV 10/07/25 22:00 10/24/25 21:21 10 MG Albuterol 2.5 mg Q6HR NEB 10/08/25 12:00 10/25/25 06:36 2.5 MG Ipratropium [place] 0.5 mg Q6HR NEB 10/08/25 12:00 10/25/25 06:36 0.5 MG Artificial Tears 2 drop Q2HP PRN EACHEYE 10/08/25 14:30 Levetiracetam 100 ml @ 400 mls/hr BID IV 10/11/25 22:00 10/25/25 10:06 400 MLS/HR Lorazepam 1 mg Q5MINP PRN IV 10/11/25 21:00 Epoetin Mohan-epbx 10,000 unit MWF@2100 SC 10/12/25 21:00 Hold 10/19/25 21:57 10,000 UNIT Gentamicin Sulfate 0 ml @ 0 mls/hr PER PHARMACY IV 10/12/25 18:15 Cancel Sodium Chloride 10 ml QSHIFT@10,22 IV 10/15/25 22:00 10/25/25 10:06 10 ML Calcium Acetate 667 mg TIDWMEALS PO 10/18/25 18:00 10/25/25 09:27 667 MG Hydralazine HCl 10 mg Q6HP PRN IV 10/18/25 14:45 Acetaminophen 650 mg Q6HP PRN PO 10/21/25 13:00 Cancel Examination: LUNGS:Abnormal, CVS:Normal, MSK:Abnormal laboratory and microbiology Laboratory Tests 10/25/25 02:30 Test 10/25/25 02:30 Range/Units Serum Glucose 176 H 74-106 mg/dL Microbiology Date/Time Source Procedure Growth Status 10/08/25 22:28 Urine - Rosales [place] Urine Culture - Final Complete 10/06/25 13:00 Sacrum Gram Stain - Final Resulted 10/06/25 13:00 Wound Culture - Preliminary Enterobacter cloacae Enterococcus faecalis - VRE Resulted 10/02/25 17:33 Blood Blood Culture - Final NO GROWTH AFTER 5 DAYS OF INCUBATION. Complete Problem List/Assessment/Plan Problem List/Assessment/Plan End-stage renal disease on hemodialysis Acute respiratory failure, patient intubated on ventilator Status post cardiac arrest x3 Decompensated heart failure with ejection fraction less than 25% Diabetes with severe diabetic nephropathy Severe peripheral artery disease Anemia of chronic kidney disease Encephalomalacia Hyperphosphatemia Hyperparathyroidism, secondary Recommendations Next hemodialysis 10/27 Epogen 49301 subQ 3 times weekly Albumin 25% IV prn hemodialysis Strict I&Os Renal diet IV pressors for blood pressure support phosphate binders Calcitriol Discontinue amlodipine We will continue to follow Plan discussed with: Other (Nurse) Dietary Evaluation Review Comments: Nutrition Recommendation: 1) CCHO 75gm + renal standard diet 2) Pro-stat 1 pk BID 3) Nephro-nellie 1 tab daily 4) Monitor PO intake, lab values, weight trend, and I/O Expected Outcomes/Goals: Wound to improve Intake to meet >75% estimated needs FU 3-5 days AKASH BARRAZA MD Oct 25, 2025 10:09
[2025-10-25] MEDS: DEXMEDETOMIDINE HCL IN D5W 100 ML IV SCH (18:29)
--- NOTE | 2025-10-25 19:51 | DVHPN2 ---
Progress Note - Dictate Date Seen: Oct 25, 2025 Has the PT tested + for MRSA If YES, has PT been informed?: No Medical Necessity Reason Pt with a Central, PICC or Fol: Yes The following are medically ne: Central Line, Rosales Catheter Reason for rosales catheter: Strict I&O Subjective Patient was seen and evaluated in follow up in the ICU. Patient is intubated and sedated on ventilator. 30% FiO2. Patient's sister is at bedside. Patient's sister is requesting a color artist to be present at bedside during terminal weaning tomorrow. HGB 7.9, HCT 24.5, CO2 32, BUN 32, PLUNGER SCOOP OPERATOR 3.07. Chest x-ray showed no significant interval change. vital signs Vital Sign Date Time Temp Pulse Resp B/P (MAP) Pulse Ox O2 Delivery O2 Flow Rate FiO2 10/25/25 14:05 68 21 147/66 (93) 98 30 10/25/25 13:30 Mechanical Ventilator+ 10/25/25 12:00 99.2 99.2 Total Intake and Output 10/24/25 10/24/25 10/25/25 15:00 23:00 07:00 Intake Total 228.7 ml 836.0 ml 555.5 ml Output Total 200 ml 50 ml Balance 228.7 ml 636.0 ml 505.5 ml medications Current Medications Medications Dose Ordered Sig/Esteban Route Start Time Stop Time Status Last Admin Dose Admin Diagnostic Test (Pha) 1 strip ACHS 09/26/25 22:00 10/25/25 11:54 1 STRIP Insulin Human Regular ACHS SC 09/26/25 22:00 10/25/25 12:05 2 UNITS Dextrose 50 ml UD PRN IV 09/26/25 21:15 Amino Acid Protein 30 ml BID PO 09/30/25 22:00 10/25/25 10:06 30 ML Multivit/Ca Carb/ B Cmplx/FA/Prenat 1 tab DAILY PO 09/30/25 11:12 10/25/25 10:06 1 TAB Albumin Human 100 ml @ 100 mls/hr ANABELLA PRN IV 10/03/25 09:45 10/07/25 17:42 100 MLS/HR Aspirin 81 mg DAILY NG 10/05/25 10:00 10/25/25 10:06 81 MG Enteral Nutritional Formula 1,000 ml 40ML/HR GT 10/04/25 18:30 10/25/25 04:33 1,000 ML Famotidine 10 mg HS IV 10/07/25 22:00 10/24/25 21:21 10 MG Albuterol 2.5 mg Q6HR NEB 10/08/25 12:00 10/25/25 11:47 2.5 MG Ipratropium [place] 0.5 mg Q6HR NEB 10/08/25 12:00 10/25/25 11:47 0.5 MG Artificial Tears 2 drop Q2HP PRN EACHEYE 10/08/25 14:30 Levetiracetam 100 ml @ 400 mls/hr BID IV 10/11/25 22:00 10/25/25 10:06 400 MLS/HR Lorazepam 1 mg Q5MINP PRN IV 10/11/25 21:00 Epoetin Mohan-epbx 10,000 unit MWF@2100 SC 10/12/25 21:00 Hold 10/19/25 21:57 10,000 UNIT Gentamicin Sulfate 0 ml @ 0 mls/hr PER PHARMACY IV 10/12/25 18:15 Cancel Sodium Chloride 10 ml QSHIFT@10,22 IV 10/15/25 22:00 10/25/25 10:06 10 ML Calcium Acetate 667 mg TIDWMEALS PO 10/18/25 18:00 10/25/25 12:05 667 MG Hydralazine HCl 10 mg Q6HP PRN IV 10/18/25 14:45 Acetaminophen 650 mg Q6HP PRN PO 10/21/25 13:00 Cancel objective GENERAL: Ill appearing, intubated on ventilator. Morbidly obese. EYES: PERRL, EOMI. Anicteric. HENT: Moist mucous membranes. LUNGS: Decreased breath sounds. CARDIOVASCULAR: Regular rate and rhythm. ABDOMEN: Soft, non-tender and non-distended. EXTREMITIES: No edema. SKIN: Warm, dry. laboratory and microbiology Laboratory Tests 10/25/25 02:30 Test 10/25/25 02:30 Range/Units Serum Glucose 176 H 74-106 mg/dL Problem List Acute syncopal episode. Status post cardiac arrest x3. ESRD on hemodialysis. Hypertension. Peripheral neuropathy. Severe peripheral artery disease. Acute on chronic congestive heart failure exacerbation. History of CVA. Anemia of chronic disease. Diabetes with severe diabetic nephropathy. History of pacemaker. Morbidly obese. Decompensated heart failure with ejection fraction less than 25%. Encephalomalacia. Hyperphosphatemia. Hyperparathyroidism. Assessment/Plan Continued all current supportive medical care. Aspirin. IV Hydralazine for SBP >180. Vasopressors for hemodynamic support. Additional plan as per the hospital course. Critical care time of 45 minutes provided to include time spent evaluation of patient at bedside, when appropriate patient/family education for diagnosis, treatment plan, review of pertinent medical information and discussion of care with specialty providers and PCP. Mechanical ventilator parameters, treatment and adjustments have personally been reviewed by me and treatment plan by heel buffer has also been reviewed. Dietary Evaluation Review Comments: Nutrition Recommendation: 1) CCHO 75gm + renal standard diet 2) Pro-stat 1 pk BID 3) Nephro-nellie 1 tab daily 4) Monitor PO intake, lab values, weight trend, and I/O Expected Outcomes/Goals: Wound to improve Intake to meet >75% estimated needs FU 3-5 days Plan discussed with: Other MATTHEW CIFUENTES MD Oct 25, 2025 14:30
--- NOTE | 2025-10-25 23:25 | DVHPN2 ---
[facility] DOS: 10/25/2025 Patient seen and examined at bedside. Intubated on mechanical ventilator. Overnight events reviewed. Reviewed: Care Plan, H&P, Labs, Medications, Previous Orders, Radiology Changes from previous H/P or p: No Changes Eyes: No Pain, No Vision change, No Conjunctivae inflammation, No Eyelid inflammation, No Other, No Redness ENT: No Ear pain, No Ear discharge, No Nose pain, No Nose discharge, No Nose congestion, No Mouth pain, No Mouth swelling, No Throat pain, No Throat swelling, No Other Cardiovascular: Chest Pain; No Palpitations, No Orthopnea, No Paroxysmal Noc. Dyspnea, No Edema, No Lt Headedness, No Other Respiratory: No Cough, No Dry, No Shortness of breath, No SOB with excertion, No Wheezing, No Hemoptysis, No Pleuritic Pain, No Sputum, No Other Gastrointestinal: No Nausea, No Vomiting, No Abdominal Pain, No Diarrhea, No Constipation, No Melena, No Hematochezia, No Other Genitourinary: No Dysuria, No Frequency, No Incontinence, No Hematuria, No Retention; Other (On hemodialysis) Musculoskeletal: No other, No neck pain, No shoulder pain, No arm pain, No back pain, No hand pain, No leg pain, No foot pain Skin: No Rash, No Lesions, No Jaundice, No Bruising, No Other Objective Vitals Vital Signs Date Time Temp Pulse Resp B/P (MAP) Pulse Ox O2 Delivery O2 Flow Rate FiO2 10/25/25 23:00 64 19 130/56 (80) 98 10/25/25 22:10 30 10/25/25 22:00 Mechanical Ventilator+ 10/25/25 19:15 98.9 98.9 Intake/Output Intake and Output 10/25/25 07:00 Intake Total 1636.725 ml Output Total 250 ml Balance 1386.725 ml Intake Oral 160 ml IV Total 592.725 ml Tube Feeding 884 ml Output Urine Total 250 ml Stool Total 0 ml Exam Gen.: Patient lying in bed in medical ICU. Intubated on mechanical ventilator. Head: Normocephalic, atraumatic. Eyes: PERRLA. Ears: Normal external anatomy. Throat: Endotracheal tube and orogastric tube in place. Neck: Supple, trachea midline. Chest: Transmitted breath sounds bilaterally. Decreased air entry bilaterally. No wheezing. Bibasilar crackles. Cardiovascular: Positive S1, positive S2. Regular rate and rhythm. Abdomen: Positive bowel sounds in all 4 quadrants. Soft, nontender, nondistended. : Salas in place. Normal external genitalia. Rectal: Deferred. Skin: Warm, dry. Intact. Extremities: 2+ radial pulses bilaterally. No lower extremity edema. Neuro: Off sedation Medications Current Medications Medications Dose Ordered Sig/Esteban Route Start Time Stop Time Status Last Admin Dose Admin Diagnostic Test (Pha) 1 strip ACHS 09/26/25 22:00 10/25/25 22:24 1 STRIP Insulin Human Regular ACHS SC 09/26/25 22:00 10/25/25 22:22 2 UNITS Dextrose 50 ml UD PRN IV 09/26/25 21:15 Amino Acid Protein 30 ml BID PO 09/30/25 22:00 10/25/25 22:11 30 ML Multivit/Ca Carb/ B Cmplx/FA/Prenat 1 tab DAILY PO 09/30/25 11:12 10/25/25 10:06 1 TAB Albumin Human 100 ml @ 100 mls/hr ANABELLA PRN IV 10/03/25 09:45 10/07/25 17:42 100 MLS/HR Aspirin 81 mg DAILY NG 10/05/25 10:00 10/25/25 10:06 81 MG Enteral Nutritional Formula 1,000 ml 40ML/HR GT 10/04/25 18:30 10/25/25 04:33 1,000 ML Famotidine 10 mg HS IV 10/07/25 22:00 10/25/25 22:10 10 MG Albuterol 2.5 mg Q6HR NEB 10/08/25 12:00 10/25/25 19:03 2.5 MG Ipratropium [place] 0.5 mg Q6HR NEB 10/08/25 12:00 10/25/25 19:03 0.5 MG Artificial Tears 2 drop Q2HP PRN EACHEYE 10/08/25 14:30 Levetiracetam 100 ml @ 400 mls/hr BID IV 10/11/25 22:00 10/25/25 22:11 400 MLS/HR Lorazepam 1 mg Q5MINP PRN IV 10/11/25 21:00 Epoetin Mohan-epbx 10,000 unit MWF@2100 ND 10/12/25 21:00 Hold 10/19/25 21:57 10,000 UNIT Gentamicin Sulfate 0 ml @ 0 mls/hr PER PHARMACY IV 10/12/25 18:15 Cancel Sodium Chloride 10 ml QSHIFT@10,22 IV 10/15/25 22:00 10/25/25 22:11 10 ML Calcium Acetate 667 mg TIDWMEALS PO 10/18/25 18:00 10/25/25 18:21 667 MG Hydralazine HCl 10 mg Q6HP PRN IV 10/18/25 14:45 Acetaminophen 650 mg Q6HP PRN PO 10/21/25 13:00 Cancel Laboratory Results Laboratory Tests 10/25/25 02:30 Chemistry Test 10/25/25 02:30 Albumin 3.5 g/dL (3.2-4.8) Calcium Level 9.1 mg/dL (8.7-10.4) Total Protein 7.0 g/dL (5.7-8.2) LFT Test 10/25/25 02:30 Alanine Aminotransferase (ALT) 21 U/L (7-40) Alkaline Phosphatase 211 U/L (46-116) H Aspartate Amino Transferase (AST) 29 U/L (13-40) Total Bilirubin 0.5 mg/dL (0.2-1.0) Urinalysis Test 10/08/25 22:28 Urine Color Dark-brown (Yellow) Urine Clarity Ex.turbid (Clear) Urine pH 6.0 (5.0-9.0) Urine Specific [place] 1.017 (1.001-1.035) Urine Protein 2+ (Negative) H Urine Ketones Negative (Negative) Urine Blood 3+ /uL (Negative) H Urine Nitrite Negative (Negative) Urine Bilirubin Negative (Negative) Urine Urobilinogen Normal mg/dL (Negative) Urine Leukocyte Esterase 3+ /uL (Negative) Urine RBC 320 /hpf (0 - 3) Urine WBC Clumps Present /hpf (None Seen) Urine Microscopic WBC 1809 /HPF (0-3) H Urine Squamous Epithelial Cells Many /hpf (<5) Urine Amorphous Crystals Few /hpf (None Seen) Urine Bacteria Many /hpf (None Seen) H Urine Mucus Few (None Seen) Urine Glucose Normal mg/dL (Normal) Blood Gas Results Test 10/25/25 08:01 Arterial Blood pH 7.483 (7.350-7.450) FiO2 % 30.0 Microbiology Microbiology Date/Time Source Procedure Growth Status 10/08/25 22:28 Urine - [place] Urine Culture - Final Complete 10/06/25 13:00 Sacrum Gram Stain - Final Resulted 10/06/25 13:00 Wound Culture - Preliminary Enterobacter cloacae Enterococcus faecalis - VRE Resulted 10/02/25 17:33 Blood Blood Culture - Final NO GROWTH AFTER 5 DAYS OF INCUBATION. Complete Assessment/Plan Assessment/Plan Impression: Acute hypoxic respiratory failure On mechanical ventilator Lactic acidosis S/p cardiac arrest Acute on chronic CHF ESRD, on hemodialysis DM type II Shock Morbid obesity Cellulitis Sacral ulcer Events: Remains on vent support On AC mode; RR 18, VT 450, PEEP 5, FiO2 30% Off sedation since 10/08/25 On Precedex drip Head of bed elevation Aspiration precautions Glycopyrrolate PRN for increased oral secretions. ABG reviewed, compensated Chest x-ray shows extensive pulmonary edema and mild cardiomegaly. Off pressors, hemodynamically stable. Patient noted to have increased pressor requirements during HD. Continue hemodialysis per Nephrology Monitor hemoglobin Transfuse if less than 7.0 g/dL. Continue bronchodilators Completed antibiotics Antiepileptic with Keppra Hemodialysis per Nephrology - underwent HD yesterday Follow up Nephrology recs Monitor renal function Salas was exchanged 10/09. Tube feeds for nutritional support Wound care Patient has poor prognosis, poor chance of meaningful recovery. Family discussion held regarding goals of care. Possible plan for compassionate extubation tomorrow CT head revealed no acute intracranial abnormality. 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 Likely chronic right cerebellar infarct. KUB showed nonobstructive bowel gas pattern. Labs and imaging reviewed. Rest of plan as noted below. Plan: s/p intubation on mechanical ventilator. On AC mode; RR 18, VT 450, PEEP 5, FiO2 30% Titrate FIO2 to keep O2 saturation above 90%. VAP bundle. Daily ABG and CXR while intubated Pressors as necessary for hemodynamic support Titrate to keep mean arterial pressure greater than 65 mmHg. Antibiotics. Follow up cultures. HD per Nephrology Diurese to euvolemia Monitor renal function Monitor electrolytes. Supplement as necessary. Monitor ins and outs. Recommend judicious use of fluids due to CHF. Wound care Monitor lactic acid. Obesity complicates all care GI prophylaxis. DVT prophylaxis. Prognosis: Poor given patient's multiple co-morbidities. Condition: Critical Rest of plan per hospitalist and other consultants. A total of 35 minutes of critical care time was spent reviewing the patient record, examining the patient, making a diagnostic and therapeutic plan, discussing this plan with the medical personnel, following up on diagnostic studies and following the patient for clinical stability excluding any and all procedures. At least 50% of this time was spent in direct, [id number] contact. Thank you, Dr. Cantu, for allowing me to participate in this patient's care. Further recommendations will depend on the patient's clinical course. Please do not hesitate to contact me if you have any questions or concerns. This medical document was created using an electronic medical record system with [employer] dictation system. Although these documentations are being carefully reviewed, there may still be some phonetic and typographical changes. The errors are purely typographical, due to imperfection on the software program, and do not reflect any compromise in the patient's medical care. Plan discussed with: Other (RN) Visit Coding Pulmonary Billing Provider: JEREMIAH GAMEZ MD Date of Service if different f: Oct 25, 2025 Common Visit Codes: [id number] INP/OBS CARE(HIGH), 75311-[id number] CARE 30-74 MIN JEREMIAH GAMEZ MD Oct 25, 2025 23:25
[2025-10-26] VITALS (70 sets, daily range): BP systolic 92–165; BP diastolic 51–89; PULSE 60–99; RESP 0–22; TEMP 97.3–98.8; O2SAT 69–100
[2025-10-26 03:10] LABS: Hemoglobin 7.8 g/dL (13.5-17.5); Mean Corpuscular Volume 98.7 fL (80.0-100.0)
[2025-10-26 03:14] LABS: Hematocrit 24.7 % (41.0-53.0); Mean Corpuscular Hemoglobin 31.3 pg (28.0-32.0); Nucleated Red Blood Cells % 0.0 %
[2025-10-26 03:20] LABS: Anion Gap 9 (5-15); Calcium 9.2 mg/dL (8.7-10.4); Chloride 101 mmol/L (98-107); Potassium 4.2 mmol/L (3.5-5.1); Sodium 141 mmol/L (136-145)
[2025-10-26 03:26] LABS: BUN/Creatinine Ratio 9.9 (10.0-20.0)
[2025-10-26 03:35] LABS: Blood Urea Nitrogen 41 mg/dL (9-23); Carbon Dioxide 31 mmol/L (20-31); Glucose 182 mg/dL (74-106)
--- NOTE | 2025-10-26 05:35 | DVH ---
CHEST RADIOGRAPH Indication: pna Technique: Single frontal view of the chest was obtained COMPARISON: XY CHEST PORTABLE on DOS: 10/25/25, XY CHEST PORTABLE on DOS: 10/24/25, XY CHEST PORTABLE on DOS: 10/23/25, XY CHEST PORTABLE on DOS: 10/22/25, XY CHEST PORTABLE on DOS: 10/21/25 FINDINGS: Lines and Tubes: Endotracheal tube, enteric catheter, right central venous catheter and left chest pacemaker in satisfactory position. Lines and tubes in satisfactory position. Lungs: Diffuse increased interstitial prominence. Pleura: No effusion. No pneumothorax. Cardiomediastinal contours: Cardiomegaly. Bones: Unremarkable IMPRESSION: Lines and tubes in satisfactory position. No significant interval change.
[2025-10-26] MEDS: LORazepam 2MG/ML-1ML VIAL IV PRN (12:42)
[2025-10-26] MEDS: HYDROmorphone HCL 2 MG/ML VL/or syr IV PRN (12:44)
[2025-10-26] MEDS: LORazepam 2MG/ML-1ML VIAL ONE (12:45)
[2025-10-26] MEDS: HYDROmorphone HCL 2 MG/ML VL/or syr ONE (12:45)
--- NOTE | 2025-10-26 17:11 | DVHPNRES ---
Progress Note Date Seen: Oct 27, 2025 Resident Creating Document: YOBANI GOETZ RESIDENT Has the PT tested + for MRSA If YES, has PT been informed?: No Medical Necessity Reason Pt with a Central, PICC or Fol: Yes The following are medically ne: Central Line, Rosales Catheter Reason for rosales catheter: Strict I&O Subjective Review of Systems Mr. Zamora is a 59 year old male with PMHx of ESRD with recent initiation of dialysis approximately 2 weeks ago , HFrEF with pacemaker placement, CVA in 2012, type 2 diabetes mellitus, gout, and hypertension, who presented to [facility] due to witnessed cardiopulmonary arrest during dialysis on 09/26/2025. At the time of evaluation the patient is sedated and intubated, majority of history is taken from previous medical record and his sister, Claudia Burnett. Per record, the patient became unresponsive during hemodialysis, CPR was intiated by bystanders and AED was used, by the time EMS arrived on scene the patient was found A&Ox4, GCS15, and moaning in pain. On evaluation in the ED, patient was complaining of dyspnea and chest wall pain. He was afebrile, normocardic with pacedc rhythm, hypertensive, and saturating adequately on room air. EKG showed paced rhythm with widened QTc. Initial labs are significant for normocytic anemia, hypokalemia, creatinine 6.85, BUN 43, and BNP 1232.11. Troponins were negative. UA without alteration. Chest xray significant for lungs with bilateral patchy airspace opacities, prominent pulmonary vasculature, with small bilateral pleural effusions. Head CT shows bilateral cerebral encephalomalacia and mild global cerebral volume loss without intracranial hemorrhage or mass effect. The patient was started on IV diuresis and admitted for further work up and managment. He was evaluated by cardiology who continued diuresis. The patient was evaluated by nephrology who state that given diminished cardiac function likely patient cannot tolerate large ultrafiltration goals. He was scheduled for further dialysis, having undergone dialysis on 09/28/2025 without issue. He was receiving dialysis on 10/01/2025 when he became bradycardic and went into asystole. Code blue was called and CPR was intiated with ROSC achieved after 7 minutes of CPR. He was transferred to the ICU and he entered asystole two more times in a span of 15 minutes a with ROSC achieved after 11 minutes of CPR and at 2 minutes of CPR respectively. He was intubated and started on pressors, sedation, antibiotics, and bicarbonate drip. On initial evaluation in the ICU, the patient is intubated, sedated, and mechanically ventilated, on levophed 2 mcg, pupils are reactive, no response to painful stimulus, cough and gag are present. Labs are significant for normocytic anemia, worsening thrombocytopenia, and worsening renal function. ABG is significant for metabolic alkalosis. Most recent chest xray shows worsening congestion. Past medical history: ESRD on dialysis, HFrEF, CVA in 2012, Type 2 diabetes mellitus, and hypertension Past surgical history: Pacemaker placement and replacement, Right femoral fracture repair Allergies: Denies Social: Per sister, the patient currently smokes marijuana, denies other drug use. Patient currently lives with his mother and his brother. Home meds: Famotidine, Allopurinol, pregabalin, furosemide, sevelamer, metoprolol, and lokelma 10/26/2025: Patient seen and examined at bedside, family would like to compassionately extubate the patient today. Detailed discussion held with patient's younger brother, sister, [id number] at bedside. Time of 15 46 Objective vital signs Vital Sign Date Time Temp Pulse Resp B/P (MAP) Pulse Ox O2 Delivery O2 Flow Rate FiO2 10/26/25 14:45 95 13 127/71 (89) 80 10/26/25 14:00 Room Air* 0 21 10/26/25 09:00 97.3 97.3 Total Intake and Output 10/25/25 10/25/25 10/26/25 15:00 23:00 07:00 Intake Total 232.200 ml 547.025 ml 508.0 ml Output Total 75 ml 100 ml Balance 232.200 ml 472.025 ml 408.0 ml medications Current Medications Medications Dose Ordered Sig/Esteban Route Start Time Stop Time Status Last Admin Dose Admin Artificial Tears 2 drop Q2HP PRN EACHEYE 10/08/25 14:30 Epoetin Mohan-epbx 10,000 unit MWF@2100 SC 10/12/25 21:00 Hold 10/19/25 21:57 10,000 UNIT Gentamicin Sulfate 0 ml @ 0 mls/hr PER PHARMACY IV 10/12/25 18:15 Cancel Sodium Chloride 10 ml QSHIFT@,22 IV 10/15/25 22:00 10/26/25 10:00 10 ML Acetaminophen 650 mg Q6HP PRN PO 10/21/25 13:00 Cancel Hydromorphone HCl 1 mg Q2HPRN PRN IV 10/26/25 12:30 10/26/25 12:44 1 MG Lorazepam 1 mg Q2HPRN PRN IV 10/26/25 12:30 10/26/25 12:42 1 MG Examination General: Patient is intubated, mechanically ventilated, somewhat-reactive to painful stimulus HEENT: Normocephalic, atraumatic, 3 mm very sluggish, no EOM, eyes open and moving, unable to track objects, ET tube in place, orogastric tube in palce Respiratory/pulmonary: Bilateral chest expansion, decreased breath sounds bilaterally, wheezing in bilateral upper lobes Cardiovascular: Normal RRR Abdomen: Obese, Abdomen nondistended, normal bowel sounds no grimacing is observed on palpation, no palpable masses. Extremities: No deformities, bilateral lower extremity pedal edema 2+ up to upper thighs, with scrotal swelling, large red circular ulcers present in right calf, presence of femoral CVC in right groin region, pulses are present, blisters present on left forearm. Left lower extremity superficial ulcer on the lateral aspect of the leg. Right lower extremity 2 superficial ulcers 1 on the medial leg and 1 on the dorsal foot. Skin: Saccrococcyx 2.5x1.2x0.5cm, moist, open, full-thickness wound with moist red granulation tissue in the wound base and a mix of pale pink collagen scar tissue and dark brown adhered eschar material on the periwound area, there is minimal odor., darkened eschar lesions on his toes Neurological: hypoactive Gag and cough noted, patient blinks but does not track movements with his eyes, does not respond to verbal commands, no response to painful stimulus. Penile ulcer noted under the foreskin laboratory and microbiology Laboratory Tests 10/26/25 02:54 Test 10/26/25 02:54 Range/Units Serum Glucose 182 H 74-106 mg/dL Microbiology Date/Time Source Procedure Growth Status 10/08/25 22:28 Urine - [place] Urine Culture - Final Complete 10/06/25 13:00 Sacrum Gram Stain - Final Resulted 10/06/25 13:00 Wound Culture - Preliminary Enterobacter cloacae Enterococcus faecalis - VRE Resulted 10/02/25 17:33 Blood Blood Culture - Final NO GROWTH AFTER 5 DAYS OF INCUBATION. Complete Labs and/or images reviewed: Labs reviewed by me, Image(s) reviewed by me Problem List/Assessment/Plan Problem List/Assessment/Plan Neurology # Sedated - Precedex at 0.5 mg # Encephalomalacia - Head CT 09/26/2025: Bilateral cerebral encephalomalacia # Global cerebral volume loss - Head CT 09/26/2025: Mild global cerebral volume loss # epilepsy - Oxycarbazepine - held - IV Keppra 500 mg b.i.d. - # Concern for anoxic brain injury - Head CT 10/06/25: No acute intracranial hemorrhage or mass effect.Age indeterminate small infarct involving the right cerebellum, favored to be chronic. If there is clinical concern for acute infarct, recommend MRI for further evaluation.Chronic bilateral parietal and occipital lobe infarcts. - Despite being off sedation for 48 hours, patient still has no meaningful neurologic response. . Neurology has been consulted - unable to obtain MRI as per [employer] pacemaker leads are older generation and not MRI compatible. #History of CVA in 201210/10/25 CT head negative for acute process. - Neurology consult - Off sedation since 10/08 Cardiovascular #S/p Cardiac arrest with ROSC - 09/26/2025: Witnessed at dialysis center, bystanders started CPR and AED use, ROSC achieved before EMS arrived - 10/01/2025: Rhythm: Asystole, ROSC achieved after 7 minutes of CPR - 10/01/2025: Rhythm: Asystole, ROSC achieved after 11 minutes of CPR - 10/01/2025: Rhythm: Asystole, ROSC achieved after 2 minutes of CPR # Cardiogenic shock # Lactic acidosis likely due to above - wound culture growing Enterobacter cloacae MDR, VRE Enterococcus faecalis. - Levophed 2 mcg, now discontinued - Epinephrine has been discontinued # Acute on chronic HFrEF - BNP 1232.11 - Echocardiogram 08/22/2025: LVEF of 20-25%, Severe LV dysfunction, moderate mitral regurgitation - Per cardiology: Diuretics with lasix, aspirin, nitroglycerin SL - Lasix 40 mg IV daily - S/p pacemaker placement # Bilateral pleural effusion - Chest xray 10/12/2025: No significant interval change. #Hypertension - Amlodipine held by nephrology Respiratory # Acute hypoxic hypercapnic respiratory failure # pulmonary edema # Ventilator -Intubated (10/01/2025) -On [facility] vent : VCAC Mode RR 18 TV 450ml, PEEP Of 8 and FiO2 of 4045% - 8.0 endotracheal tube, 24 at the lip - Cutlures from sputum: Normal orophargyngeal elpidio GI # Peptic ulcer prophylaxis - Pepcid 10 mg IV daily # Rosales catheter draining clear urine placed on 10/09/2025 Nephrology # ESRD on hemodialysis - Received dialysis without complication and without pressor support on 10/13/2025 with 2 L removed - Strict Is and Os # Severe diabetic nephropathy #Acute metabolic alkalosis # Secondary hyperparathyroidism # Hypocalcemia - Monitor - Calcitrol # Hyperphosphatemia - Phosphate binders Infectious disease # 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 # Possible cellulitis secondary to lower extremity ulcers, , leg wound growing E coli # Complicated UTI growing MDR cloacae, VRE - IV linezolid, now discontinued - started patient on IV gentamicin per pharmacy, now discontinued - consulted infectious disease; per ID to discontinue systemic antibiotics likely colonization #Septic vs Cardiogenic shock - blood Cultures: Negative at 72 hours - Ceftriaxone 1 g IV daily, now discontinue Hem/onc #Thrombocytopenia, improved - Monitor #Normocytic anemia, likely due to chronic disease - Monitor Hand H - Per nephrology: Epogen 31821 SQ 3 weekly as tolerated Endocrine #Type 2 diabetes mellitus - SSI -Accu cheks MSK # Gout - Allopurinol 300 mg PO daily Skin # Circular ulcers present on right leg, present on admission # Possible Sacral Ulcer stage 2, present on admission - Wound culture: VRE - Meropenem 500 mg daily, discontinued - Linezolid 600 mg IV q 12 hours , now discontinued Marijuana use DVT prophylaxis: SCD Lines -R femoral central line: 10/01/2025, discontinued on 10/15/2025. - thigh PICC line placed on 10/15/2025 -Rosales catheter 10/09/2025 -ET tube: 10/01/2025 - Tunneled catheter in right pectoral region Drips during [facility] ventilation Fentanyl Discontinued Propofol: dc'ed Bicarbonate drip discontinued Levophed discontinued Critical care time 82 minutes excluding procedure. Code status discussed greater than 20 minutes: DNR Detailed conversation held with patient's sister at bedside where prognosis was explained, per patient's sister would like to compassionate extubation on Sunday10/26/[address] Rivera Plan discussed with: Other (Sister, [id number], younger brother) My Orders My Orders Orders - YOBANI GOETZ Procedure Category Date Status Time Rt To Terminal Wean Pt ORDERS 10/26/25 Transmitted 12:16 Hydromorphone PHA 10/26/25 In Process Injection (Dilaudid 12:30 Lorazepam 2mg/Ml Inj PHA 10/26/25 In Process (Ativan Inj) 12:30 Dietary Evaluation Review Comments: Nutrition Recommendation: 1) CCHO 75gm + renal standard diet 2) Pro-stat 1 pk BID 3) Nephro-nellie 1 tab daily 4) Monitor PO intake, lab values, weight trend, and I/O Expected Outcomes/Goals: Wound to improve Intake to meet >75% estimated needs FU 3-5 days Visit Coding STANDARD RES Billing Provider: ANANT BAUTISTA MD Date of Service if different f: Oct 27, 2025 Common Visit Codes: 48913-[id number] CARE 30-74 MIN, [id number] CARE-EACH +30MIN YOBANI GOETZ Oct 26, 2025 17:11
--- NOTE | 2025-10-26 17:12 | DVHDS2 ---
Summary Date of Admission Sep 26, 2025 at 21:05 Date and Time of Expiration: Oct 26, 2025 15:46 Reason for Admission: Cardiac arrest Labs/Diagnostic Data: Laboratory Results Test 10/26/25 11:35 10/26/25 02:54 10/25/25 08:01 10/25/25 02:30 POC Glucose 163 mg/dl (70-106) White Blood Count 7.2 10^3/uL (4.4-10.8) Red Blood Count 2.50 10^6/uL (4.5-5.90) Hemoglobin 7.8 g/dL (13.5-17.5) Hematocrit 24.7 % (41.0-53.0) Mean Corpuscular Volume 98.7 fL (80.0-100.0) Mean Corpuscular Hemoglobin 31.3 pg (28.0-32.0) Mean Corpuscular Hemoglobin Concent 31.8 g/dL (32.0-36.0) Red Cell Distribution Width 16.9 % (11.8-14.3) Platelet Count 229 10^3/uL (140-450) Mean Platelet Volume 9.2 fL (6.9-10.8) Neutrophils (%) (Auto) 74.3 % (37.0-80.0) Lymphocytes (%) (Auto) 12.1 % (10.0-50.0) Monocytes (%) (Auto) 10.5 % (0.0-12.0) Eosinophils (%) (Auto) 2.3 % (0.0-7.0) Basophils (%) (Auto) 0.8 % (0.0-2.0) Neutrophils # (Auto) 5.4 10 ^3/uL (1.6-8.6) Lymphocytes # (Auto) 0.9 10 ^3/uL (0.4-5.4) Monocytes # (Auto) 0.8 10 ^3/uL (0-1.3) Eosinophils # (Auto) 0.2 10 ^3/uL (0-0.8) Basophils # (Auto) 0.1 10 ^3/uL (0-0.2) Nucleated Red Blood Cells 0.0 % Sodium Level 141 mmol/L (136-145) Potassium Level 4.2 mmol/L (3.5-5.1) Chloride Level 101 mmol/L (98-107) Carbon Dioxide Level 31 mmol/L (20-31) Anion Gap 9 (5-15) Blood Urea Nitrogen 41 mg/dL (9-23) Creatinine 4.13 mg/dL (0.700-1.30) Glomerular Filtration Rate Calc 16 mL/min (>90) BUN/Creatinine Ratio 9.9 (10.0-20.0) Serum Glucose 182 mg/dL (74-106) Calcium Level 9.2 mg/dL (8.7-10.4) Blood Gas Specimen Type Arterial Blood Gas Sample Site Left radial Blood Gas Patient Temperature 37.0 Arterial Blood Date Drawn [id number] Arterial Blood pH 7.483 (7.350-7.450) Arterial Blood Partial Pressure CO2 38.9 mmHg (35.0-48.0) Arterial Blood Partial Pressure O2 83.7 mmHg (83.0-108.0) Arterial Blood HCO3 28.5 mmol/L (21.0-28.0) Arterial Blood Oxygen Saturation 96.4 % (94.0-98.0) Arterial Blood Base Excess 4.8 mmol/L (-2.0-3.0) Arterial Blood Oxyhemoglobin 94.6 % (94.0-98.0) Arterial Blood Carboxyhemoglobin 1.4 % (0.5-1.5) Arterial Blood Methemoglobin 0.5 % (0.0-1.5) Arterial Blood Deoxyhemoglobin 3.5 % (0.0-5.0) Rashad Test Modified Blood Gas Total Hemoglobin 10.50 g/dL (13.5-17.5) Blood Gas Set Respiration Rate 18.0 Blood Gas Modality Vent - ac FiO2 % 30.0 Blood Gas Tidal Volume 450.0 Blood Gas PEEP or CPAP 5.0 Total Bilirubin 0.5 mg/dL (0.2-1.0) Aspartate Amino Transferase (AST) 29 U/L (13-40) Alanine Aminotransferase (ALT) 21 U/L (7-40) Alkaline Phosphatase 211 U/L (46-116) Total Protein 7.0 g/dL (5.7-8.2) Albumin 3.5 g/dL (3.2-4.8) Test 10/24/25 07:28 10/18/25 07:52 10/13/25 17:11 10/13/25 02:30 Blood Gas Critical Value Read Back Yes Blood Gas Notified Whom Dr. singleton Blood Gas Notified Time [id number] Blood Gas Notified By Blood Gas Spontaneous Rate 24 Prothrombin Time 11.1 sec (9.3-11.8) Prothrombin Time INR 1.05 (0.9-1.15) Activated Partial Thromboplast Time 25.3 SEC (24.5-34.5) Iron Level 37 ug/dL (65-175) Total Iron Binding Capacity 185 ug/dL (250-425) Percent Iron Saturation 20.0 % (20-55) Ferritin 401.2 ng/mL (22-322) Test 10/12/25 02:50 10/08/25 22:28 10/03/25 02:32 10/01/25 17:35 Phosphorus Level 5.6 mg/dL (2.4-5.1) Magnesium Level 2.5 mg/dL (1.6-2.6) Urine Color Dark-brown (Yellow) Urine Clarity Ex.turbid (Clear) Urine pH 6.0 (5.0-9.0) Urine Specific Hamilton 1.017 (1.001-1.035) Urine Protein 2+ (Negative) Urine Ketones Negative (Negative) Urine Blood 3+ /uL (Negative) Urine Nitrite Negative (Negative) Urine Bilirubin Negative (Negative) Urine Urobilinogen Normal mg/dL (Negative) Urine Leukocyte Esterase 3+ /uL (Negative) Urine RBC 320 /hpf (0 - 3) Urine WBC Clumps Present /hpf (None Seen) Urine Microscopic WBC 1809 /HPF (0-3) Urine Squamous Epithelial Cells Many /hpf (<5) Urine Amorphous Crystals Few /hpf (None Seen) Urine Bacteria Many /hpf (None Seen) Urine Mucus Few (None Seen) Urine Glucose Normal mg/dL (Normal) Platelet Estimate Decreased B-Type Natriuretic Peptide 993.78 pg/mL (0-100) Lactic Acid Level 1.9 mmol/L (0.4-2.0) Test 10/01/25 15:14 09/28/25 04:33 09/26/25 16:33 Differential Total Cells Counted 100.0 (100) Neutrophils % (Manual) 62.0 (37.0-80.0) Band Neutrophils % (Manual) 0 Lymphocytes % (Manual) 31.0 (10.0-50.0) Monocytes % (Manual) 7.0 (0-12) Eosinophils % (Manual) 0 (0-7) Basophils % (Manual) 0 (0.0-2.0) Metamyelocytes % (manual) 0 Myelocytes % (Manual) 0 Promyelocytes % (Manual) 0 Blast Cells % (Manual) 0 Reactive Lymphocytes 0 Anisocytosis (manual) Slight Macrocytosis Slight Vitamin D 25-Hydroxy 29.0 ng/mL (30.0-100) Parathyroid Hormone (Intact) 361.3 pg/mL (18.4-80.1) Hepatitis A IgM Antibody Negative Hepatitis B Surface Antigen Negative (Negative) Hepatitis B Core IgM Antibody Negative (Negative) Hepatitis C Antibody Negative (Negative) Troponin I High Sensitivity 23 ng/L (</=54) Other Laboratory Tests 10/26/25 02:54 Brief Hx & Hospital Course: Mr. Zamora, a 59-year-old man with ESRD recently initiated on hemodialysis (~2 weeks prior), HFrEF with pacemaker, prior CVA (2012), type 2 diabetes, gout, and hypertension, presented on 09/26/2025 after a witnessed cardiac arrest at the dialysis center with bystander CPR/AED and return of spontaneous circulation prior to EMS arrival. In the ED he reported dyspnea and chest wall pain; he was afebrile, paced and normocardic, hypertensive, and oxygenating adequately. Initial workup showed normocytic anemia, hypokalemia, chronic renal dysfunction (Cr 6.85, BUN 43), and elevated BNP 1232.11; troponins were negative. CXR demonstrated bilateral pulmonary congestion with small pleural effusions; head CT on 09/26 showed bilateral cerebral encephalomalacia and mild global cerebral volume loss without acute hemorrhage. Prior echocardiogram (08/22/2025) documented LVEF 2025%, severe LV dysfunction, and moderate MR. He was admitted for diuresis and multidisciplinary management by cardiology and nephrology. On 10/01/2025, while receiving dialysis, he developed bradycardia progressing to asystole with three recurrent arrests; ROSC was achieved after 7 minutes, 11 minutes, and 2 minutes of CPR, respectively. He was intubated and transferred to the ICU on mechanical ventilation (VC/AC RR 18, VT 450 mL, PEEP 8, FiO? 4045%), later weaned to FiO2 ~30% and PEEP 5. He required vasopressors (norepinephrine; epinephrine) for cardiogenic shock, later discontinued, and received bicarbonate infusion and continued IV furosemide. Nephrology advised limited ultrafiltration given poor cardiac reserve; he resumed dialysis on 10/13/2025 without pressor support with 2 L removed, with strict I/O monitoring. ABGs were notable for metabolic alkalosis; imaging showed persistent pulmonary edema and stable bilateral pleural effusions. Neurologically, he was managed with dexmedetomidine (Precedex, typically 0.20.5 mcg/kg/hr; intermittently held/restarted for agitation). Despite being off sedation from 10/08/25, he exhibited no meaningful neurologic response (pupils minimally reactive; cough/gag present but no purposeful response). Neurology was consulted. Head CT on 10/06 and 10/10 showed no acute intracranial hemorrhage, chronic bilateral parietal/occipital infarcts, and a small age-indeterminate right cerebellar infarct; MRI was not obtained due to nonMRI-compatible [employer] pacemaker leads, and anoxic brain injury was suspected. For known epilepsy, oxcarbazepine was held and IV levetiracetam 500 mg BID was administered. Infectious evaluations noted infected sacral and lower-extremity wounds with MDR organisms (including Enterobacter cloacae and VRE Enterococcus faecalis) and a complicated UTI; blood cultures remained negative at 72 hours and sputum cultures showed normal oropharyngeal elpidio. He received courses of linezolid, gentamicin, ceftriaxone, and meropenem, which were discontinued per Infectious Disease due to high suspicion for colonization rather than active systemic infection. Additional care included GI prophylaxis (IV famotidine), Salas catheter placement on 10/09 with clear urine, management of secondary hyperparathyroidism, hypocalcemia (calcitriol), and hyperphosphatemia (binders). Thrombocytopenia improved with monitoring; normocytic anemia was managed per nephrology (epoetin as tolerated). Diabetes was treated with sliding-scale insulin and accuchecks; gout with allopurinol. Multiple family meetings were held regarding prognosis and goals of care. Code status changed to DNR on 10/16/2025. On 10/20/2025, the family elected for terminal wean with hospice involvement (DNR/DNI; no compressions, no pressors). Ventilator settings were further reduced (PEEP 5 by 10/21), but he remained ventilator-dependent with persistent pulmonary congestion and poor neurologic recovery. On 10/26/2025, after a detailed discussion with the sister (medical decision maker) and family at bedside, the patient underwent compassionate extubation and at 15:46. Consults/Reason for consult Cardiology consult: S/p CPR and cardiac arrest Iinfectious disease consult: CRE in sacral wound Neurology consult: Rule out hypoxic brain injury Pulmonology: vent management Nephrology: ESRD, dialysis Final Diagnosis/Problems List Sedated Encephalomalacia Global cerebral volume loss Likely hypoxic encephalopathy Epilepsy Anoxic brain injury History of CVA S/p cardiac arrest with ROSC x 4 Cardiogenic shock Acute on chronic systolic heart failure with reduced ejection fraction 20% Bilateral pleural effusions Hypertension Acute hypoxic hypercapnic respiratory failure, poa Pulmonary edema, undetermined POA Peptic ulcer prophylaxis ESRD likely diabetic nephropathy Metabolic alkalosis Secondary hyperparathyroidism Hypocalcemia Hyperphosphatemia Infected sacral wound, POA growing carbapenem resistant enterococci Possible cellulitis secondary to lower extremity ulcers, POA Complicated UTI, POA, growing MDR cloacae and VRE Septic versus cardiogenic shock Thrombocytopenia Normocytic anemia Type 2 diabetes Gout Discharge Disposition: at [facility] YOBANI SINGLETON RESIDENT Oct 26, 2025 17:12
--- NOTE | 2025-10-26 23:12 | DVHPN2 ---
Progress Note - Dictate Date Seen: Oct 26, 2025 Has the PT tested + for MRSA If YES, has PT been informed?: No Medical Necessity Reason Pt with a Central, PICC or Fol: Yes The following are medically ne: Central Line, Rosales Catheter Reason for rosales catheter: Strict I&O Subjective Patient was seen and evaluated in follow up in the ICU earlier today. Patient was compassionately extubated this afternoon. Family is at bedside. Patient receiving comfort measures. vital signs Vital Sign Date Time Temp Pulse Resp B/P (MAP) Pulse Ox O2 Delivery O2 Flow Rate FiO2 10/26/25 15:45 60 0 10/26/25 15:30 91 10/26/25 14:00 Room Air* 0 21 10/26/25 09:00 97.3 97.3 Total Intake and Output 10/25/25 10/25/25 10/26/25 15:00 23:00 07:00 Intake Total 232.200 ml 547.025 ml 508.0 ml Output Total 75 ml 100 ml Balance 232.200 ml 472.025 ml 408.0 ml medications Current Medications Medications Dose Ordered Sig/Esteban Route Start Time Stop Time Status Last Admin Dose Admin Gentamicin Sulfate 0 ml @ 0 mls/hr PER PHARMACY IV 10/12/25 18:15 Cancel Acetaminophen 650 mg Q6HP PRN PO 10/21/25 13:00 Cancel objective GENERAL: Ill appearing, intubated on ventilator. Morbidly obese. EYES: PERRL, EOMI. Anicteric. HENT: Moist mucous membranes. LUNGS: Decreased breath sounds. CARDIOVASCULAR: Regular rate and rhythm. ABDOMEN: Soft, non-tender and non-distended. EXTREMITIES: No edema. SKIN: Warm, dry. laboratory and microbiology Laboratory Tests 10/26/25 02:54 Test 10/26/25 02:54 Range/Units Serum Glucose 182 H 74-106 mg/dL Problem List Acute syncopal episode. Status post cardiac arrest x3. ESRD on hemodialysis. Hypertension. Peripheral neuropathy. Severe peripheral artery disease. Acute on chronic congestive heart failure exacerbation. History of CVA. Anemia of chronic disease. Diabetes with severe diabetic nephropathy. History of pacemaker. Morbidly obese. Decompensated heart failure with ejection fraction less than 25%. Encephalomalacia. Hyperphosphatemia. Hyperparathyroidism. Assessment/Plan Continued all current supportive medical care. Aspirin. IV Hydralazine for SBP >180. Vasopressors for hemodynamic support. Additional plan as per the hospital course. Critical care time of 45 minutes provided to include time spent evaluation of patient at bedside, when appropriate patient/family education for diagnosis, treatment plan, review of pertinent medical information and discussion of care with specialty providers and PCP. Mechanical ventilator parameters, treatment and adjustments have personally been reviewed by me and treatment plan by rubber press tender has also been reviewed. Dietary Evaluation Review Comments: Nutrition Recommendation: 1) CCHO 75gm + renal standard diet 2) Pro-stat 1 pk BID 3) Nephro-nellie 1 tab daily 4) Monitor PO intake, lab values, weight trend, and I/O Expected Outcomes/Goals: Wound to improve Intake to meet >75% estimated needs FU 3-5 days Plan discussed with: Other MATTHEW CIFUENTES MD Oct 26, 2025 23:12
== END 2025-10-26 20:06 | DRG 207 ==
LOC: ER 12:51 → EDBD 12:51 → OVERFLOW 21:05 → TELE-EAST 09-27 15:53 → ICU CENTRL 10-01 15:32
PROVIDERS: ADMIT Internal Medicine; ATTEND Internal Medicine
PROC: 5A1D70Z Performance of Urinary Filtration, Intermittent, Less than 6 Hours Per Day (ICD-10-PCS; 2025-09-28)
PROC: 02HV33Z Insertion of Infusion Device into Superior Vena Cava, Percutaneous Approach (ICD-10-PCS; principal; 2025-10-01)
PROC: B548ZZA Ultrasonography of Superior Vena Cava, Guidance (ICD-10-PCS; 2025-10-01)
PROC: 0BH17EZ Insertion of Endotracheal Airway into Trachea, Via Natural or Artificial Opening (ICD-10-PCS; 2025-10-01)
PROC: 5A1955Z Respiratory Ventilation, Greater than 96 Consecutive Hours (ICD-10-PCS; 2025-10-01)
PROC: 5A12012 Performance of Cardiac Output, Single, Manual (ICD-10-PCS; 2025-10-01)
PROC: 5A2204Z Restoration of Cardiac Rhythm, Single (ICD-10-PCS; 2025-10-01)
PROC: 5A1D70Z Performance of Urinary Filtration, Intermittent, Less than 6 Hours Per Day (ICD-10-PCS; 2025-10-01)
PROC: 5A1D70Z Performance of Urinary Filtration, Intermittent, Less than 6 Hours Per Day (ICD-10-PCS; 2025-10-03)
PROC: 5A1D70Z Performance of Urinary Filtration, Intermittent, Less than 6 Hours Per Day (ICD-10-PCS; 2025-10-05)
PROC: 5A1D70Z Performance of Urinary Filtration, Intermittent, Less than 6 Hours Per Day (ICD-10-PCS; 2025-10-07)
PROC: 5A1D70Z Performance of Urinary Filtration, Intermittent, Less than 6 Hours Per Day (ICD-10-PCS; 2025-10-10)
PROC: 5A1D70Z Performance of Urinary Filtration, Intermittent, Less than 6 Hours Per Day (ICD-10-PCS; 2025-10-12)
PROC: 5A1D70Z Performance of Urinary Filtration, Intermittent, Less than 6 Hours Per Day (ICD-10-PCS; 2025-10-14)
PROC: 06HY33Z Insertion of Infusion Device into Lower Vein, Percutaneous Approach (ICD-10-PCS; 2025-10-15)
PROC: B54CZZA Ultrasonography of Left Lower Extremity Veins, Guidance (ICD-10-PCS; 2025-10-15)
PROC: 5A1D70Z Performance of Urinary Filtration, Intermittent, Less than 6 Hours Per Day (ICD-10-PCS; 2025-10-15)
PROC: 5A1D70Z Performance of Urinary Filtration, Intermittent, Less than 6 Hours Per Day (ICD-10-PCS; 2025-10-19)
PROC: 5A1D70Z Performance of Urinary Filtration, Intermittent, Less than 6 Hours Per Day (ICD-10-PCS; 2025-10-20)
PROC: 5A1D70Z Performance of Urinary Filtration, Intermittent, Less than 6 Hours Per Day (ICD-10-PCS; 2025-10-22)
PROC: 5A1D70Z Performance of Urinary Filtration, Intermittent, Less than 6 Hours Per Day (ICD-10-PCS; 2025-10-24)
DX: J96.01 Acute respiratory failure with hypoxia (principal); A41.9 Sepsis, unspecified organism; I50.23 Acute on chronic systolic (congestive) heart failure; N18.6 End stage renal disease; R65.21 Severe sepsis with septic shock; G93.41 Metabolic encephalopathy; J18.9 Pneumonia, unspecified organism; R57.0 Cardiogenic shock; I13.2 Hypertensive heart and chronic kidney disease with heart failure and with stage 5 chronic kidney disease, or end stage renal disease; G93.1 Anoxic brain damage, not elsewhere classified; L89.152 Pressure ulcer of sacral region, stage 2; Z99.11 Dependence on respirator [ventilator] status; L03.116 Cellulitis of left lower limb; L03.115 Cellulitis of right lower limb; N39.0 Urinary tract infection, site not specified; D69.6 Thrombocytopenia, unspecified; Z99.2 Dependence on renal dialysis; J96.02 Acute respiratory failure with hypercapnia; I46.9 Cardiac arrest, cause unspecified; D63.1 Anemia in chronic kidney disease; E11.22 Type 2 diabetes mellitus with diabetic chronic kidney disease; E66.01 Morbid (severe) obesity due to excess calories; G25.81 Restless legs syndrome; G40.409 Other generalized epilepsy and epileptic syndromes, not intractable, without status epilepticus; E87.4 Mixed disorder of acid-base balance; N25.81 Secondary hyperparathyroidism of renal origin; Z16.13 Resistance to carbapenem; Z16.24 Resistance to multiple antibiotics; Z68.41 Body mass index [BMI] 40.0-44.9, adult; E83.39 Other disorders of phosphorus metabolism; G93.89 Other specified disorders of brain; E11.51 Type 2 diabetes mellitus with diabetic peripheral angiopathy without gangrene; I95.9 Hypotension, unspecified; E83.51 Hypocalcemia; E11.42 Type 2 diabetes mellitus with diabetic polyneuropathy; M10.9 Gout, unspecified; E87.6 Hypokalemia; Z66 Do not resuscitate; I25.10 Atherosclerotic heart disease of native coronary artery without angina pectoris; L84 Corns and callosities; Z82.49 Family history of ischemic heart disease and other diseases of the circulatory system; Z86.73 Personal history of transient ischemic attack (TIA), and cerebral infarction without residual deficits; Z79.899 Other long term (current) drug therapy; Z82.3 Family history of stroke; Z83.3 Family history of diabetes mellitus; Z79.2 Long term (current) use of antibiotics; Z79.82 Long term (current) use of aspirin; Z95.0 Presence of cardiac pacemaker; Z79.4 Long term (current) use of insulin
CPT/HCPCS: 36415; 36556; 36569; 36600; 70450; 71045; 74018; 76937; 80048; 80053; 80074; 81001; 82306; 82728; 82805; 82962; 83540; 83550; 83605; 83735; 83880; 83970; 84100; 84132; 84484; 85007; 85025; 85027; 85610; 85730; 87040; 87070; 87077; 87081; 87086; 87088; 87186; 87205; 90935; 92950; 93005; 93970; 94002; 94003; 94640; 95819; 96365; 97110; 97116; 97163; 97530; 99291; 99292; G0378; J0169; J1642; J1815; J2185; J2704; J3480; J3490; J7060; P9047